=== PATIENT | female | born 1930 | race Caucasian/White ===

== ENCOUNTER → 2017-05-29 | Outpatient (CLI) | payer MEDICARE, OTHER ==
[2017-05-29] VITALS (8 sets, daily range): BP systolic 101–135; BP diastolic 55–85
[~2017-05-29] VITALS: Ht 165.1 cm; Wt 54.2 kg
[~2017-05-29] MED LIST: ASPI-983 PO; ATEN25TA PO; ATEN50TA PO; CEPH500T PO; CETI10CA PO; CLOP75TA28 PO; FLUT16SP22 NSEACH; FLUT1DIS26 IH; FLUT1DIS28 IH; FURO20TA4 PO; FUROSEMIDE 40 MG/4 ML INJ (LASIX) IVP ONE; FUROSEMIDE 40 MG/4 ML INJ (LASIX) ONE; HYDR-3812 PO; HYDR12.5 PO; LISI-552 PO; MONT10TA21 PO; MONT10TA24 PO; NS IV 500 ML 500 ML ONE; PANT40TA2 PO; POTA10TA6 PO; SIMV40TA PO; SIMV40TA4 PO; SUCR1TAB36 PO
== END ==
LOC: SDC 08:02
PROVIDERS: ATTEND Internal Medicine
DX: D64.9 Anemia, unspecified (principal)
CPT/HCPCS: 36415; 36430; 82728; 86850; 86900; 86901; 86920

== ENCOUNTER → 2018-07-22 | Outpatient (CLI) | payer MEDICARE, OTHER ==
[~2018-07-22] MED LIST changes: +ACHD5005 PO; -FUROSEMIDE 40 MG/4 ML INJ (LASIX) IVP ONE; -FUROSEMIDE 40 MG/4 ML INJ (LASIX) ONE; -HYDR-3812 PO; -NS IV 500 ML 500 ML ONE
--- NOTE | 2018-07-22 18:25 | Diagnostic Imaging Report ---
EXAMINATION: Digital mammogram bilateral screening with 3D tomosynthesis and computer-aided detection (CAD) system. INDICATION: Screening. This study was compared to the prior exams of 05/07/2016, 02/20/2015, and 02/15/2014. At this time, there are no current complaints. FINDINGS: The fibroglandular tissue in both breasts is heterogeneously dense. This does limit the sensitivity of this exam. Overall, there does not appear to have been any significant change when compared to the prior study. No primary or secondary sign of malignancy is noted. 3D tomographic images fail to show any sign of malignancy. IMPRESSION: There is no radiographic evidence for malignancy. ACR BI-RADS Category 1: Negative. Result letter will be mailed to the patient. Note: At least 10% of breast cancer is not imaged by mammography. Dictated by: Dictated on workstation # [id number]
== END ==
LOC: RAD 10:53
PROVIDERS: ATTEND Internal Medicine
DX: Z12.31 Encounter for screening mammogram for malignant neoplasm of breast (principal)
CPT/HCPCS: 77067

== ENCOUNTER 2019-05-06 18:16 | Inpatient (IN) | payer MEDICARE, OTHER ==
[~2019-05-06] VITALS: Ht 162 cm; Wt 60.5 kg
[2019-05-06] MEDS ORDERED: RT-ALBUTEROL/IPRATROPIUM 3 ML (DUONEB) VIAL ONE (18:22)
[2019-05-06] MEDS ORDERED: DEXAMETHASONE 4 MG/ML SDV (DECADRON) ONE (18:22)
[2019-05-06] MEDS ORDERED: NS IV 1000 ML 1,000 ML IV ONE (18:24)
[2019-05-06] MEDS ORDERED: methylPREDNISolone 125 MG (Solu-MEDROL) VIAL IV STA (18:28)
[2019-05-06] MEDS ORDERED: ACETAMINOPHEN 500 MG TAB (TYLENOL) PO PRN ×2 (18:30→23:30)
[2019-05-06] MEDS ORDERED: RT-ALBUTEROL/IPRATROPIUM 3 ML (DUONEB) VIAL INH ONE (18:30)
[2019-05-06] MEDS ORDERED: cefTRIAXone FOR IV USE 1,000 MG in WATER (STERILE) FOR INJECTION 10 ML IV ONE (18:30)
[2019-05-06] MEDS ORDERED: hydrALAZINE (APESOLINE) 20 MG/ML VIAL IV ONE (18:30)
[2019-05-06 18:38] LABS: BASOPHILS # (AUTO) 0.1 10^3/uL (0.0-0.1); BASOPHILS % (AUTO) 1 % (0-10); EOSINOPHILS # (AUTO) 2.4 10^3/uL (0.0-0.3); EOSINOPHILS % (AUTO) 14 % (0-10); HEMATOCRIT 42 % (35-52); HEMOGLOBIN 14.1 G/DL (11.5-16.0); LYMPHOCYTES # (AUTO) 4.2 X 10^3 (1.0-4.0); LYMPHOCYTES % (AUTO) 25 % (12-44); MEAN CORPUSCULAR HEMOGLOBIN 29 PG (25-34); MEAN CORPUSCULAR HGB CONC 33 G/DL (32-36); MEAN CORPUSCULAR VOLUME 88 FL (80-99); MEAN PLATELET VOLUME 10.7 FL (7.4-10.4); MONOCYTES # (AUTO) 1.2 X 10^3 (0.0-1.0); MONOCYTES % (AUTO) 7 % (0-12); NEUTROPHILS % (AUTO) 53 % (42-75); PLATELET COUNT 309 10^3/uL (130-400); RED CELL DISTRIBUTION WIDTH 14.4 % (10.0-14.5); WHITE BLOOD COUNT 16.9 10^3/uL (4.3-11.0)
--- NOTE | 2019-05-06 18:41 | ED Respiratory ---
General Chief Complaint: Respiratory Problems Stated Complaint: SOA Source: patient History of Present Illness Date Seen by Provider: May 06, 2019 Time Seen by Provider: 18:19 Initial Comments PT ARRIVES VIA POV FROM HOME---PT LIVES ALONE, NO FAMILY NEARBY. NEIGHBORS CHECK ON HER, AND ONE NEIGHBOR BROUGHT HER HERE. C/O SHORTNESS OF BREATH C/O NON-PRODUCTIVE COUGH C/O CLEAR RUNNY NOSE C/O UPPER CHEST PAIN NO KNOWN FEVER NO SWELLING IN LEGS/FEET SYMPTOMS FOR 2 WEEKS SAW A R SPECIALIST/PA AT DR. THOMPSON'S OFFICE A WEEK AGO. NO TESTS, GIVEN RX FOR TESSALON. STATES NO RELIEF PCP: DR. THOMPSON Allergies and Home Medications Allergies Coded Allergies: No Known Drug Allergies (Unverified , 05/24/17) Home Medications Aspirin 81 Mg Tablet.dr, 81 MG PO HS, (Reported) Atenolol 50 Mg Tablet, 50 MG PO HS, (Reported) Benzonatate 100 Mg Capsule, 200 MG PO TID, (Reported) Cetirizine HCl 10 Mg Capsule, 10 MG PO HS, (Reported) Fluticasone Propionate 16 Gm [place].susp, 1-2 SPRAYS NSEACH DAILY PRN for CONGESTION, (Reported) Fluticasone/Salmeterol 1 Each Blst.w.dev, 1 PUFF IH BID, (Reported) Lisinopril 10 Mg Tablet, 10 MG PO HS, (Reported) Pantoprazole Sodium 40 Mg Tablet.dr, 40 MG PO DAILY Prescribed by: VERONICA MANE on 05/25/17 0946 Potassium Chloride 10 Meq Tablet.er, 10 MEQ PO DAILY, (Reported) Simvastatin 40 Mg Tablet, 40 MG PO HS, (Reported) Sucralfate 1 Gm Tablet, 1 GM PO ACHS Prescribed by: VERONICA MANE on 05/25/17 0946 Patient Home Medication List Home Medication List Reviewed: Yes Review of Systems Review of Systems Constitutional: No chills, No diaphoresis, No fever; malaise, weakness EENTM: nose congestion, other (CLEAR RUNNY NOSE) Respiratory: see HPI, cough, short of breath Cardiovascular: see HPI, chest pain; No edema Gastrointestinal: no symptoms reported Genitourinary: no symptoms reported Musculoskeletal: no symptoms reported Skin: no symptoms reported Psychiatric/Neurological: No Symptoms Reported Hematologic/Lymphatic: No Symptoms Reported Immunological/Allergic: no symptoms reported Past Lnxzaqn-Egczpv-Ipgfti Hx Patient Social History Alcohol Use: Denies Use Recreational Drug Use: No Smoking Status: Never a Smoker Recent Foreign Travel: No Contact w/Someone Who Travel: No Recent Hopitalizations: No Immunizations Up To Date Tetanus Booster (TDap): Less than 5yrs Date of Pneumonia Vaccine: Apr 19, 2016 Date of Influenza Vaccine: Apr 19, 2017 Seasonal Allergies Seasonal Allergies: No Past Medical History Surgeries: Yes (CARDIAC CATH WITH ANGIOPLASTY AT [facility] / DR. 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 PT REFUSED EGD.) Gastrointestinal Bleed Musculoskeletal: No Endocrine: No HEENT: No Cancer: No Psychosocial: No Integumentary: No Blood Disorders: No Physical Exam Vital Signs - First Documented 05/06/19 18:20 Temp 37.4 Pulse 105 Resp 24 B/P (MAP) 219/116 (150) Pulse Ox 94 O2 Delivery Nasal Cannula O2 Flow Rate 2.00 Capillary Refill : Height: 5'5.00" Weight: 119lbs. 9.0oz. 54.214360wb; 19.9 BMI Method:Stated General Appearance: mild distress, thin HEENT: PERRL/EOMI, other (PROFUSE CLEAR RHINORRHEA) Neck: normal inspection Respiratory: other (MILD DYSPNEA, TACHYPNEA. DIFFUSE EXPIRATORY WHEEZING ON LEFT, DIFFUSE RALES/RHONCHI ON RIGHT. 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 as tested, no motor/sensory deficits, alert, oriented x 3 Skin: normal color, warm/dry Focused Exam Lactate Level 05/06/19 18:23: Lactic Acid Level 1.24 Lactic Acid Level Laboratory Tests Test 05/06/19 18:23 Lactic Acid Level 1.24 MMOL/L (0.50-2.00) Progress/Results/Core Measures Suspected Sepsis SIRS Temperature: Pulse: Respiratory Rate: Laboratory Tests 05/06/19 18:23: White Blood Count 16.9H Blood Pressure / Mean: 05/06/19 18:23: Lactic Acid Level 1.24 Laboratory Tests 05/06/19 18:23: Creatinine 0.83, INR Comment 1.0, Platelet Count 309, Total Bilirubin 0.3 Results/Orders Lab Results Laboratory Tests Test 05/06/19 18:23 05/06/19 18:38 05/06/19 18:54 Range/Units White Blood Count 16.9 H 4.3-11.0 10^3/uL Red Blood Count 4.81 4.35-5.85 10^6/uL Hemoglobin 14.1 11.5-16.0 G/DL Hematocrit 42 35-52 % Mean Corpuscular Volume 88 80-99 FL Mean Corpuscular Hemoglobin 29 25-34 PG Mean Corpuscular Hemoglobin Concent 33 32-36 G/DL Red Cell Distribution Width 14.4 10.0-14.5 % Platelet Count 309 130-400 10^3/uL Mean Platelet Volume 10.7 H 7.4-10.4 FL Neutrophils (%) (Auto) 53 42-75 % Lymphocytes (%) (Auto) 25 12-44 % Monocytes (%) (Auto) 7 0-12 % Eosinophils (%) (Auto) 14 H 0-10 % Basophils (%) (Auto) 1 0-10 % Neutrophils # (Auto) 9.0 H 1.8-7.8 X 10^3 Lymphocytes # (Auto) 4.2 H 1.0-4.0 X 10^3 Monocytes # (Auto) 1.2 H 0.0-1.0 X 10^3 Eosinophils # (Auto) 2.4 H 0.0-0.3 10^3/uL Basophils # (Auto) 0.1 0.0-0.1 10^3/uL Neutrophils % (Manual) 58 % Lymphocytes % (Manual) 18 % Monocytes % (Manual) 11 % Eosinophils % (Manual) 11 % Band Neutrophils 1 % Atypical Lymphocytes 1 % Blood Morphology Comment NORMAL Prothrombin Time 13.4 12.2-14.7 SEC INR Comment 1.0 0.8-1.4 Activated Partial Thromboplast Time 31 24-35 SEC Sodium Level 138 135-145 MMOL/L Potassium Level 4.0 3.6-5.0 MMOL/L Chloride Level 104 98-107 MMOL/L Carbon Dioxide Level 22 21-32 MMOL/L Anion Gap 12 5-14 MMOL/L Blood Urea Nitrogen 14 7-18 MG/DL Creatinine 0.83 0.60-1.30 MG/DL Estimat Glomerular Filtration Rate > 60 BUN/Creatinine Ratio 17 Glucose Level 116 H 70-105 MG/DL Lactic Acid Level 1.24 0.50-2.00 MMOL/L Calcium Level 9.5 8.5-10.1 MG/DL Corrected Calcium 9.5 8.5-10.1 MG/DL Magnesium Level 1.5 L 1.6-2.4 MG/DL Total Bilirubin 0.3 0.1-1.0 MG/DL Aspartate Amino Transf (AST/SGOT) 19 5-34 U/L Alanine Aminotransferase (ALT/SGPT) 16 0-55 U/L Alkaline Phosphatase 157 H 40-136 U/L Troponin I < 0.028 <0.028 NG/ML B-Type Natriuretic Peptide 247.0 H <100.0 PG/ML Total Protein 6.7 6.4-8.2 GM/DL Albumin 4.0 3.2-4.5 GM/DL Blood Gas Puncture Site LR Blood Gas Patient Temperature 37.4 Arterial Blood pH 7.37 7.37-7.43 Arterial Blood Partial Pressure CO2 44 35-45 MMHG Arterial Blood Partial Pressure O2 48 L 79-93 MMHG Arterial Blood HCO3 25 23-27 MMOL/L Arterial Blood Total CO2 25.8 21.0-31.0 MMOL/L Arterial Blood Oxygen Saturation 81 L 94-100 % Arterial Blood Base Excess -0.1 -2.5-2.5 MMOL/L Keron Test YES-POS Blood Gas Ventilator Setting NO Blood Gas Inspired Oxygen 2L Urine Color YELLOW Urine Clarity SLIGHTLY CLOUDY Urine pH 5 5-9 Urine Specific [place] 1.030 H 1.016-1.022 Urine Protein 3+ H NEGATIVE Urine Glucose (UA) NEGATIVE NEGATIVE Urine Ketones 2+ H NEGATIVE Urine Nitrite NEGATIVE NEGATIVE Urine Bilirubin NEGATIVE NEGATIVE Urine Urobilinogen NORMAL NORMAL MG/DL Urine Leukocyte Esterase 2+ H NEGATIVE Urine RBC (Auto) 2+ H NEGATIVE Urine RBC 2-5 H /HPF Urine WBC 10-25 H /HPF Urine Crystals NONE /LPF Urine Bacteria FEW H /HPF Urine Casts PRESENT /LPF Urine Hyaline Casts 2-5 H /LPF Urine Mucus MODERATE H /LPF Urine Culture Indicated CULTURE PENDING Micro Results Microbiology 05/06/19 Influenza Types A,B Antigen (RHONDA) - Final, Complete My Orders Orders - NICOLETTE THOMAS DO Dexamethasone Injection (Decadron Inject (05/06/19:) Albuterol/Ipra Inhalation Soln (Duoneb I (05/06/19:) Ed Iv/Invasive Line Start (05/06/19) Ekg Tracing (05/06/19) Catheter(Urinary) Insert & Ass 03,15 (05/06/19) Monitor-Rhythm Ecg Trace Only (05/06/19) BNP (05/06/19) Magnesium (05/06/19) Protime With Inr (05/06/19) Partial Thromboplastin Time (05/06/19) Blood Culture (05/06/19) Influenza A And B Antigens (05/06/19) Cbc With Automated Diff (05/06/19) Comprehensive Metabolic Panel (05/06/19) Sputum Culture (05/06/19) Urinalysis (05/06/19) Urine Culture (05/06/19) Chest 1 View, Ap/Pa Only (05/06/19) Acetaminophen Tablet (Tylenol Tablet) (05/06/19:) Ed Iv/Invasive Line Start (05/06/19) Ed Iv/Invasive Line Start (05/06/19) Troponin I (05/06/19) O2 (05/06/19:) Lactic Acid Analyzer (05/06/19) Ceftriaxone For Iv Use (Rocephin For I (05/06/19:) Azithromycin Injection (Zithromax Inject (05/06/19) Ed Iv/Invasive Line Start (05/06/19) Ns Iv 1000 Ml (Sodium Chloride 0.9%) (05/06/19:) Albuterol/Ipra Inhalation Soln (Duoneb I (05/06/19) Rt Request For Service (05/06/19 18:28) Methylprednisolone Sod Succ (Solu-Medrol (05/06/19 18:28) Svn Small Volume Nebulizer (05/06/19 18:28) Arterial Blood Gas (05/06/19 18:28) Hydralazine Injection (Apresoline Inject (05/06/19 18:30) Manual Differential (05/06/19 18:23) Magnesium 1 Gm/100 Ml Ivpb (Magnesium [place] (05/06/19 19:45) Ct Angio Chest W (05/06/19 19:42) Iohexol Injection (Omnipaque 350 Mg/Ml 1 (05/06/19 20:00) Received Contrast (Hold Metformin- Contr (05/06/19 20:00) Sodium Chloride Flush (Catheter Flush Sy (05/06/19 20:00) Ns (Ivpb) (Sodium Chloride 0.9% Ivpb Bag (05/06/19 20:00) Medications Given in ED Vital Signs/I&O 05/06/19 05/06/19 05/06/19 05/06/19 18:20 18:20 18:31 19:05 Temp 37.4 Pulse 105 116 Resp 24 24 B/P (MAP) 219/116 (150) 155/71 (99) Pulse Ox 94 86 95 96 O2 Delivery Nasal Cannula Nasal Cannula Nasal Cannula Room Air O2 Flow Rate 2.00 4.00 2.00 05/06/19 20:00 Pulse 84 Resp 22 B/P (MAP) 128/65 (86) Pulse Ox 92 O2 Delivery Room Air 05/07/19 00:00 Intake Total 1260 ml Balance 1260 ml Capillary Refill : Progress Note : Progress Note PT GIVEN NEB TREATMENT, WITH INCREASED AERATION, NO LONGER WHEEZING, STILL WITH RALES AND RHONCHI IN RLL. O2 SATS REMAINED IN MID 90'S ON O2, BP AND HEART RATE DOWN , AND RESPIRATORY RATE DOWN. PT IS BREATHING MUCH EASIER. NO DETERIORATION IN PT'S CONDITION DURING ER STAY ECG Initial ECG Impression Date: May 06, 2019 Initial ECG Impression Time: 18:40 Initial ECG Rate: 111 Initial ECG Rhythm: S.Tach Initial ECG Impression: Nonspecific Changes Diagnostic Imaging Comments CXR--NO ACUTE PROCESS, PER RADIOLOGIST REPORT AT 1939 CT CHEST ANGIOGRAM--NO P.E. NO ANEURYSM OR DISSECTION. BILATERAL LUNG BRON CHIECTASIS WITH SIGNIFICANT MUCOUS PLUGGING AND SECRETIONS IN BILATERAL LOWER LUNG [place]. BILATERAL ATELECTASIS. MEDIASTINAL AND PERIHILAR ADENOPATHY. PER RADIOLOGIST REPORT AT 2049 Reviewed: Reviewed by Me Departure Communication (Admissions) 2049--SPOKE WITH DR. PINEDA, HOSPITALIST. ACCEPTS PT FOR ADMIT. Impression Primary Impression: Acute respiratory failure with hypoxia Additional Impressions: Bronchitis Sepsis UTI (urinary tract infection) Hypomagnesemia CHF (congestive heart failure) HTN Disposition: ADMITTED INPATIENT Condition: Improved Admissions Decision to Admit Reason: Admit from ER (General) Decision to Admit/Date: May 06, 2019 Time/Decision to Admit Time: 20:50 Departure-Patient Inst. Referrals: JAY JAY THOMPSON MD (PCP/Family) Primary Care Physician NICOLETTE THOMAS DO May 06, 2019 18:41
[2019-05-06 18:46] LABS: ABG BASE EXCESS -0.1 MMOL/L (-2.5-2.5); ABG OXYGEN SATURATION 81 % (94-100); ABG PCO2 44 MMHG (35-45); ABG PH 7.37 (7.37-7.43); ABG PO2 48 MMHG (79-93); ABG TCO2 25.8 MMOL/L (21.0-31.0)
[2019-05-06 18:47] LABS: ALLENS TEST YES-POS; INSPIRED O2 2L; PATIENT TEMP 37.4; VENTILATOR NO
[2019-05-06 18:49] LABS: PROTHROMBIN TIME PATIENT 13.4 SEC (12.2-14.7)
[2019-05-06 18:52] LABS: ALANINE AMINOTRANSFERASE 16 U/L (0-55); ALKALINE PHOSPHATASE 157 U/L (40-136); BILIRUBIN,TOTAL 0.3 MG/DL (0.1-1.0); CALCIUM 9.5 MG/DL (8.5-10.1); CARBON DIOXIDE 22 MMOL/L (21-32); CHLORIDE 104 MMOL/L (98-107); GLUCOSE 116 MG/DL (70-105); MAGNESIUM 1.5 MG/DL (1.6-2.4); SODIUM 138 MMOL/L (135-145); TOTAL PROTEIN 6.7 GM/DL (6.4-8.2)
--- NOTE | 2019-05-06 19:00 | NUR ---
REPORT TO DENNY ROBERSON
[2019-05-06 19:05] VITALS: BP 155/71
[2019-05-06 19:07] LABS: BILIRUBIN,URINE NEGATIVE (NEGATIVE); CLARITY,URINE SLIGHTLY CLOUDY; COLOR,URINE YELLOW; GLUCOSE, URINE (UA) NEGATIVE (NEGATIVE); KETONES,URINE 2+ (NEGATIVE); LEUKOCYTE ESTERASE ,URINE 2+ (NEGATIVE); NITRITE,URINE NEGATIVE (NEGATIVE); PH,URINE 5 (5-9); PROTEIN,URINE 3+ (NEGATIVE)
[2019-05-06] MEDS: AZITHROMYCIN INJECTION 500 MG in NS (IVPB) 250 ML IV ONE ×2 (19:10→20:17)
[2019-05-06 19:11] LABS: ATYPICAL LYMPHOCYTES 1 %; BAND NEUTROPHILS 1 %; EOSINOPHILS % (MANUAL) 11 %; LYMPHOCYTES % (MANUAL) 18 %; MONOCYTES % (MANUAL) 11 %; NEUTROPHILS % (MANUAL) 58 %; RBC MORPH NORMAL
[2019-05-06 19:19] LABS: BUN/CREATININE RATIO 17; CREATININE SERUM 0.83 MG/DL (0.60-1.30); GFR ESTIMATED > 60
[2019-05-06 19:19] LABS: BACTERIA,URINE FEW /HPF
--- NOTE | 2019-05-06 19:22 | Diagnostic Imaging Report ---
Indication: Cough and fever Portable chest 7:10 PM Heart size and pulmonary vascularity are normal. Lungs are clear. There are no effusions or pneumothoraces. IMPRESSION: Negative chest Dictated by: Dictated on workstation # [id number]
[2019-05-06 20:00] VITALS: BP 128/65
[2019-05-06] MEDS ORDERED: CATHETER FLUSH 10 ML SYR IV PRN (20:00)
[2019-05-06] MEDS ORDERED: HOLD METFORMIN - RECEIVED CONTRAST 20 ML VIAL IV SCH (20:00)
[2019-05-06] MEDS ORDERED: IOHEXOL 350 MG/ML 100 ML (OMNIPAQUE 350) VIAL IV ONE (20:00)
[2019-05-06] MEDS ORDERED: NS 100 ML (IVPB) BAG IV ONE (20:00)
--- NOTE | 2019-05-06 20:41 | Diagnostic Imaging Report ---
Clinical indications: Patient with shortness of air. Patient has history of skin cancer. Exam: CT angiogram of the chest performed with 59 cc Omnipaque 350 IV contrast. Coronal and oblique MIP images of the vasculature were created to better evaluate anatomy. Auto Exposure Controls were utilized during the CT exam to meet ALARA standards for radiation dose reduction. Comparison: Chest x-ray dated 05/06/2019. Findings: There is no evidence of pulmonary embolism. There is no thoracic aortic dissection or aneurysm. There is mild bronchiectasis involving both lungs with mucosal thickening. There is mucous plugging seen within the bilateral lower lobe bronchi. There is mild atelectasis involving both lower lobes, lingula and middle lobe lung base regions. The remainder of the lungs are clear. There are prominent lymph nodes in the mediastinal and hilar regions. Marker lymph node is in the left paratracheal region measuring 12 mm x 11 mm. There is no axillary lymphadenopathy. There is no pleural effusion pneumothorax. There are postop changes with sutures involving the right anterior abdominal region. 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 The visualized portions of the upper abdominal structures are unremarkable. Bone show no significant acute process. Impression: 1: There is no evidence of pulmonary embolism. There is no thoracic aortic aneurysm or dissection. 2: There is bilateral lung bronchiectasis with significant mucous plugging and secretions in the bilateral lower lung field regions. Bilateral lung atelectasis. These findings may be from infectious or inflammatory process and bronchitis. 3: There is mediastinal and bilateral hilar lymphadenopathy. 4: There is mild bilateral lower lung field atelectasis. Dictated by: Dictated on workstation # [id number]
[2019-05-06] MEDS: MAGNESIUM 1 GM/100 ML IVPB 100 ML IV SCH ×2 (20:42→21:41)
[2019-05-06 22:05] VITALS: BP 117/65
--- NOTE | 2019-05-06 22:05 | NUR ---
MARV CUEVAS admitted to room 431-1, with an admitting diagnosis of bronchitis, hypoxia, sepsis,HTN, on 05/06/19 from ER via cart, accompanied by er staff. MARV CUEVAS introduced to surroundings, call light, bed controls, phone, TV, temperature control, lights, meal times, smoking policy, visitor policy, side rail policy, bathrooms and showers. Patient Rights given to patient in the handbook. MARV CUEVAS verbalizes understanding that [facility] is not responsible for the loss or damage to any personal effects or valuables that are kept in the patients possession during their hospitalization.
[2019-05-06 22:50] VITALS: BP 117/65
[2019-05-06] MEDS ORDERED: RT-ALBUTEROL/IPRATROPIUM 3 ML (DUONEB) VIAL INH PRN (23:00)
[2019-05-07 00:30] VITALS: BP 126/59
[2019-05-07] MEDS ORDERED: methylPREDNISolone 125 MG (Solu-MEDROL) VIAL IVP SCH (02:00)
[2019-05-07] MEDS ORDERED: LISI10TA2 PO (03:43)
[2019-05-07] MEDS ORDERED: BENZ100C18 PO (03:47)
[2019-05-07] MEDS ORDERED: ASPI-586 PO (03:50)
[2019-05-07 04:00] VITALS: BP 145/66
[2019-05-07 05:37] LABS: BASOPHILS % (AUTO) 0 % (0-10); EOSINOPHILS % (AUTO) 0 % (0-10); HEMATOCRIT 37 % (35-52); HEMOGLOBIN 12.4 G/DL (11.5-16.0); LYMPHOCYTES # (AUTO) 1.3 X 10^3 (1.0-4.0); LYMPHOCYTES % (AUTO) 10 % (12-44); MEAN CORPUSCULAR HEMOGLOBIN 29 PG (25-34); MEAN CORPUSCULAR HGB CONC 33 G/DL (32-36); MEAN CORPUSCULAR VOLUME 88 FL (80-99); MEAN PLATELET VOLUME 10.5 FL (7.4-10.4); MONOCYTES # (AUTO) 0.1 X 10^3 (0.0-1.0); MONOCYTES % (AUTO) 1 % (0-12); NEUTROPHILS # (AUTO) 11.3 X 10^3 (1.8-7.8); NEUTROPHILS % (AUTO) 89 % (42-75); PLATELET COUNT 243 10^3/uL (130-400); RED CELL DISTRIBUTION WIDTH 14.1 % (10.0-14.5); WHITE BLOOD COUNT 12.8 10^3/uL (4.3-11.0)
[2019-05-07 05:57] LABS: ALANINE AMINOTRANSFERASE 13 U/L (0-55); ALBUMIN 3.4 GM/DL (3.2-4.5); ALKALINE PHOSPHATASE 152 U/L (40-136); BILIRUBIN,TOTAL 0.3 MG/DL (0.1-1.0); BUN/CREATININE RATIO 12; CALCIUM 8.4 MG/DL (8.5-10.1); CARBON DIOXIDE 19 MMOL/L (21-32); CHLORIDE 105 MMOL/L (98-107); CREATININE SERUM 0.67 MG/DL (0.60-1.30); GFR ESTIMATED > 60; GLUCOSE 145 MG/DL (70-105); POTASSIUM 3.7 MMOL/L (3.6-5.0); SODIUM 136 MMOL/L (135-145); TOTAL PROTEIN 5.7 GM/DL (6.4-8.2)
[2019-05-07] MEDS: RT-ALBUTEROL/IPRATROPIUM 3 ML (DUONEB) VIAL INH SCH ×2 (07:32→11:27)
[2019-05-07 08:00] VITALS: BP 124/58
[2019-05-07] MEDS ORDERED: FLUTICASONE NASAL SPRAY (FLONASE) 16 GM BTL NS PRN (08:00)
[2019-05-07] MEDS ORDERED: FLU QUADRIvalent (5+ YOA) 2019-2020 (AFLURIA) 0.5 ML IM ONE (08:15)
--- NOTE | 2019-05-07 08:22 | Diagnostic Imaging Report ---
EXAMINATION: Chest 1 view HISTORY: Bronchitis FINDINGS: Comparison is 05/06/2019. There is mild left base atelectasis. No pleural effusion or pneumothorax. No edema or pneumonia. Heart size is normal. IMPRESSION: 1. Mild left base atelectasis. Dictated by: Dictated on workstation # [id number]
[2019-05-07] MEDS: SUCRALFATE 1 GM (CARAFATE) TAB PO SCH ×3 (09:23→19:44)
[2019-05-07] MEDS: ASPIRIN E.C. 81 MG (ECOTRIN) TAB PO SCH (09:23)
[2019-05-07] MEDS: PANTOPRAZOLE 40 MG (PROTONIX) TAB PO SCH (09:23)
[2019-05-07] MEDS: AZITHROMYCIN 250 MG TAB (ZITHROMAX) PO SCH (09:23)
[2019-05-07] MEDS: RT-ADVAIR HFA 115/21 MCG PER PUFF IH SCH ×2 (11:29→21:30)
[2019-05-07 12:00] VITALS: BP 134/65
--- NOTE | 2019-05-07 13:59 | History & Physical-Hospitalist ---
History of Present Illness HPI/Chief Complaint This is an 89-year-old white female well known to me. She first beginning having trouble in March this year when she was exposed to roadside mowing. She began to have a great deal of sinus drainage and cough productive of copious amounts of mucus. At the time of my interview today she feels actually a little worse and she did yesterday and is been tachycardic overnight with rates up to 120. She denies having any chest pain but she continues to have a cough productive of sputum that is yellow in nature. Source: patient Exam Limitations: no limitations Date Seen 05/07/19 Time Seen by a Provider: 13:45 Attending Physician Jay Jay Cuadra MD Referring Physician Date of Admission May 06, 2019 at 20:50 Home Medications & Allergies Home Medications Reviewed patient Home Medication Reconciliation performed by pharmacy medication reconciliations hydroelectric plant technician and/or nursing. Patients Allergies have been reviewed. Allergies Allergies Coded Allergies No Known Drug Allergies ([id number]/5/17) Past Znccibs-Nzaghx-Gvexra Hx Past Med/Social Hx: Reviewed Nursing Past Med/Soc Hx Patient Social History Marrital Status: Employed/Student: retired Alcohol Use: Denies Use Recreational Drug Use: No Smoking Status: Never a Smoker Recent Foreign Travel: No Contact w/other who traveled: No Recent Hopitalizations: No Recent Infectious Disease Expo: No Immunizations Up To Date Tetanus Booster (TDap): Less than 5yrs Date of Pneumonia Vaccine: Apr 19, 2016 Date of Influenza Vaccine: Apr 19, 2017 Seasonal Allergies Seasonal Allergies: No Past Medical History Surgeries: Cardiac, Gallbladder, Hysterectomy Currently Using CPAP: No Currently Using BIPAP: No Cardiac: Coronary Artery Disease, Heart Attack, Hypertension Neurological: Stroke : No Reproductive: No Gastrointestinal: Gastrointestinal Bleed History of Blood Disorders: No Family History Congenital heart disease 19 FATHER G8 BROTHER FH: breast cancer G8 SISTER Review of Systems Constitutional: see HPI EENTM: nose congestion Respiratory: dyspnea on exertion, wheezing Cardiovascular: no symptoms reported Gastrointestinal: no symptoms reported Genitourinary: no symptoms reported Musculoskeletal: muscle weakness Skin: no symptoms reported Psychiatric/Neurological: No Symptoms Reported Physical Exam Physical Exam Vital Signs Vital Signs - First Documented 05/06/19 05/06/19 18:20 22:50 Temp 37.4 Pulse 105 Resp 24 B/P (MAP) 219/116 (150) Pulse Ox 94 O2 Delivery Nasal Cannula O2 Flow Rate 2.00 FiO2 28 Capillary Refill : Less Than 3 Seconds Height, Weight, BMI Height: 5'5.00" Weight: 119lbs. 9.0oz. 54.411666ml; 22.10 BMI Method:Stated General Appearance: No Apparent Distress, WD/WN (then) HEENT: Normal ENT Inspection Neck: Full Range of Motion, Normal Inspection, Non Tender, Supple Respiratory: Lungs Clear, Normal Breath Sounds, No Accessory Muscle Use, No Respiratory Distress Cardiovascular: Tachycardia Gastrointestinal: Normal Bowel Sounds, Non Tender, Soft Rectal: Deferred Back: Normal Inspection Extremity: Normal Capillary Refill, Non Tender, No Calf Tenderness Neurologic/Psychiatric: Alert, Oriented x3, No Motor/Sensory Deficits, Normal Mood/Affect Skin: Normal Color, Warm/Dry Results Results/Procedures Labs Laboratory Tests 05/06/19 18:23 05/07/19 05:25 Patient resulted labs reviewed. Imaging: Reviewed Imaging Report Assessment/Plan Admission Diagnosis Acute bronchitis Reactive airway disease-possible new diagnosis Coronary artery disease and tachycardia Weakness Hypertension Hypoxia secondary to number 1 and 2 Plan to admit changed to Xopenex continue beta meron start steroids and add Atrovent. We'll repeat an EKG troponin and check an echocardiogram as well Admission Status: Observation Clinical Quality Measures DVT/VTE Risk/Contraindication: Risk Factor Score Per Nursin RFS Level Per Nursing on Admit: 4+=Very High Copy Copies To 1: JAY JAY THOMPSON MD, KATHLEEN M MD May 07, 2019 13:59
[2019-05-07] MEDS: ATENOLOL 50 MG (TENORMIN) TAB PO SCH ×2 (14:35→19:44)
[2019-05-07] MEDS ORDERED: RT-IPRATROPIUM (ATROVENT) 0.5MG/2.5ML AMP IH SCH (15:00)
[2019-05-07] MEDS ORDERED: [UNRECOGNIZED DRUG - OTHER] INH SCH (15:00)
[2019-05-07] MEDS: RT-IPRATROPIUM (ATROVENT) 0.5MG/2.5ML AMP IH SCH ×2 (15:14→21:30)
[2019-05-07] MEDS: RT-LEVALBUTEROL (XOPENEX) 1.25 MG/3 ML NEB NON-FORMULARY INH SCH ×2 (15:14→21:30)
[2019-05-07 16:00] VITALS: BP 110/71
[2019-05-07] MEDS: LORATADINE (CLARITIN) 10 MG TAB PO SCH (19:44)
[2019-05-07] MEDS: lisINopril 10 MG (PRINIVIL) TABLET PO SCH (19:44)
[2019-05-07] MEDS: cefTRIAXone FOR IV USE 1,000 MG in WATER (STERILE) FOR INJECTION 10 ML IV SCH (19:44)
[2019-05-07] MEDS: predniSONE 20 MG TAB PO SCH (19:44)
[2019-05-07] MEDS: SIMvastatin 40 MG (ZOCOR) TAB PO SCH (19:53)
[2019-05-07 20:00] VITALS: BP 109/65
[2019-05-07] MEDS ORDERED: ATENOLOL 50 MG (TENORMIN) TAB PO SCH (21:00)
[2019-05-08 00:37] VITALS: BP 121/68
[2019-05-08 04:32] VITALS: BP 126/66
[2019-05-08] MEDS: SUCRALFATE 1 GM (CARAFATE) TAB PO SCH ×4 (05:31→19:39)
[2019-05-08] MEDS: RT-LEVALBUTEROL (XOPENEX) 1.25 MG/3 ML NEB NON-FORMULARY INH SCH ×3 (07:31→21:56)
[2019-05-08] MEDS: RT-ADVAIR HFA 115/21 MCG PER PUFF IH SCH ×2 (07:32→21:57)
[2019-05-08] MEDS: RT-IPRATROPIUM (ATROVENT) 0.5MG/2.5ML AMP IH SCH ×3 (07:32→21:56)
[2019-05-08 08:32] VITALS: BP 132/66
[2019-05-08] MEDS: predniSONE 20 MG TAB PO SCH ×2 (08:38→19:40)
[2019-05-08] MEDS: AZITHROMYCIN 250 MG TAB (ZITHROMAX) PO SCH (08:38)
[2019-05-08] MEDS: ASPIRIN E.C. 81 MG (ECOTRIN) TAB PO SCH (08:38)
[2019-05-08] MEDS: PANTOPRAZOLE 40 MG (PROTONIX) TAB PO SCH (08:38)
[2019-05-08] MEDS ORDERED: FLU QUADRIvalent (5+ YOA) 2019-2020 (AFLURIA) 0.5 ML IM ONE (08:39)
[2019-05-08 12:06] VITALS: BP 137/70
--- NOTE | 2019-05-08 13:25 | Progress Note - Hospitalist ---
Subjective HPI/CC On Admission Date Seen by Provider: May 08, 2019 Time Seen by Provider: 12:45 This is an 89-year-old white female well known to me. She first beginning having trouble in March this year when she was exposed to roadside mowing. She began to have a great deal of sinus drainage and cough productive of copious amounts of mucus. At the time of my interview today she feels actually a little worse and she did yesterday and is been tachycardic overnight with rates up to 120. She denies having any chest pain but she continues to have a cough productive of sputum that is yellow in nature. Subjective/Events-last exam Patient notes that she's feeling much better today with less coughing and rib pain. Her pulses down into the 80s and 90s. She slept well overnight and other than some weakness still she is planning to go home possibly Thursday Review of Systems Pulmonary: Dyspnea, Cough Neurological: Weakness Focused Exam Lactate Level 05/06/19 18:23: Lactic Acid Level 1.24 Objective Exam Vital Signs Vital Signs Date Time Temp Pulse Resp B/P (MAP) Pulse Ox O2 Delivery O2 Flow Rate FiO2 05/08/19 13:00 82 05/08/19 12:06 36.4 18 137/70 (92) 97 Room Air 05/07/19 04:00 2.00 05/06/19 22:50 28 Capillary Refill : Less Than 3 Seconds General Appearance: No Apparent Distress, WD/WN HEENT: Normal ENT Inspection Neck: Full Range of Motion, Normal Inspection, Non Tender, Supple Respiratory: Lungs Clear, Normal Breath Sounds, No Accessory Muscle Use, No Respiratory Distress Cardiovascular: Regular Rate, Rhythm, No Gallop, No Murmur, Normal Peripheral Pulses Gastrointestinal: Soft Rectal: Deferred Back: Normal Inspection, No CVA Tenderness Extremity: Normal Capillary Refill, Non Tender, No Calf Tenderness Neurologic/Psychiatric: Alert, Oriented x3, No Motor/Sensory Deficits, Normal Mood/Affect, product support representative II-XII Norm as Tested Results/Procedures Lab Patient resulted labs reviewed. Imaging: Reviewed Imaging Report Assessment/Plan Assessment and Plan Assess & Plan/Chief Complaint Acute bronchitis Reactive airway disease-possible new diagnosis Coronary artery disease and tachycardia-improved after stopping albuterol and changing to Xopenex Weakness-consider PT in the morning Hypertension Hypoxia secondary to number 1 and 2-improved Clinical Quality Measures DVT/VTE Risk/Contraindication: Risk Factor Score Per Nursin RFS Level Per Nursing on Admit: 4+=Very High JADEN DICKERSON MD May 08, 2019 13:25
[2019-05-08 16:00] VITALS: BP 114/54
[2019-05-08] MEDS: lisINopril 10 MG (PRINIVIL) TABLET PO SCH (19:39)
[2019-05-08] MEDS: ATENOLOL 50 MG (TENORMIN) TAB PO SCH (19:39)
[2019-05-08] MEDS: SIMvastatin 40 MG (ZOCOR) TAB PO SCH (19:39)
[2019-05-08] MEDS: LORATADINE (CLARITIN) 10 MG TAB PO SCH (19:39)
[2019-05-08 19:40] VITALS: BP 133/63
[2019-05-08] MEDS: cefTRIAXone FOR IV USE 1,000 MG in WATER (STERILE) FOR INJECTION 10 ML IV SCH (19:40)
[2019-05-09 00:41] VITALS: BP 138/75
[2019-05-09 04:44] VITALS: BP 144/77
[2019-05-09] MEDS: SUCRALFATE 1 GM (CARAFATE) TAB PO SCH ×4 (06:25→20:38)
[2019-05-09] MEDS: RT-IPRATROPIUM (ATROVENT) 0.5MG/2.5ML AMP IH SCH ×3 (07:59→21:40)
[2019-05-09] MEDS: RT-LEVALBUTEROL (XOPENEX) 1.25 MG/3 ML NEB NON-FORMULARY INH SCH ×3 (07:59→21:38)
[2019-05-09 08:00] VITALS: BP 161/71
[2019-05-09] MEDS: RT-ADVAIR HFA 115/21 MCG PER PUFF IH SCH ×2 (08:02→19:20)
[2019-05-09] MEDS ORDERED: PANT40TA3 PO (08:38)
[2019-05-09] MEDS ORDERED: CETI10TA17 PO (08:38)
[2019-05-09] MEDS ORDERED: SUCR1TAB PO (08:38)
[2019-05-09] MEDS ORDERED: ACET325C3 PO (08:44)
[2019-05-09] MEDS ORDERED: VIT1CAPS44 PO (08:44)
[2019-05-09] MEDS ORDERED: IBUP100T9 PO (08:44)
[2019-05-09] MEDS: AZITHROMYCIN 250 MG TAB (ZITHROMAX) PO SCH (08:46)
[2019-05-09] MEDS: predniSONE 20 MG TAB PO SCH ×2 (08:46→20:39)
[2019-05-09] MEDS: ASPIRIN E.C. 81 MG (ECOTRIN) TAB PO SCH (08:47)
[2019-05-09] MEDS: PANTOPRAZOLE 40 MG (PROTONIX) TAB PO SCH (08:47)
--- NOTE | 2019-05-09 09:15 | NUR ---
SPOKE WITH PT WELL GOING OVER THE EXT MED HISTORY AND CALLING [facility] TO COMPLETE THE MED REC. PT WAS ABLE TO TELL ME HOW/WHEN SHE TAKES ALL HER MEDICATIONS (EVERYTHING MATCHED THE EXT MED HISTORY EXCEPT POTASSIUM) 12-27-2017 POTASSIUM #90/90DS- PT SAID SHE STOPPED TAKING FOR A LONG TIME AND WAS RECENTLY PUT BACK ON THIS (WITHIN THE LAST MONTH) AND HAD A SUPPLY BUILT UP FROM MAIL ORDER. [place]: THIS IS LISTED ON THE EXT MED HISTORY PUT PT SAYS SHE IS NOT CURRENTLY TAKING. OTC MEDS: ASPIRIN: 1 DAILY PRESERVISION: 1 BID IBUPROFEN: 2 Q 8 H PRN APAP: 2 Q 8 H PRN
[2019-05-09 12:00] VITALS: BP 130/61
--- NOTE | 2019-05-09 12:12 | Progress Note - Hospitalist ---
[facility] 05/09/19 1212: Subjective HPI/CC On Admission Date Seen by Provider: May 09, 2019 Time Seen by Provider: 12:08 This is an 89-year-old white female well known to me. She first beginning having trouble in March this year when she was exposed to roadside mowing. She began to have a great deal of sinus drainage and cough productive of copious amounts of mucus. At the time of my interview today she feels actually a little worse and she did yesterday and is been tachycardic overnight with rates up to 120. She denies having any chest pain but she continues to have a cough productive of sputum that is yellow in nature. Subjective/Events-last exam pt notes she does feel better than the onset of her sx Has developed a cough this AM with mild amount of clear mucus Denies any other symptom besides the cough Has been having normal BMs Has been voiding via catheter, does not require catheter at baseline, agrees with plan to discharge catheter Notes she is ok with going home tomorrow Pt lives along at home, has no relatives/kids/ to help her out around the house At baseline, pt uses a Cane to ambulate States she is able to manage her ADLs independently and Notes if she could get her breathing "under-control", she sees no reason for assistance/home-health Review of Systems General: No Chills, No Fatigue, No Malaise HEENT: No Head Aches, No Dysphasia, No Post Nasal Drip Pulmonary: No Dyspnea; Cough; No Pleuritic Chest Pain Cardiovascular: No: Chest Pain, Palpitations Gastrointestinal: No: Nausea, Vomiting, Diarrhea, Constipation Genitourinary: No Incontinence Neurological: No: Weakness, Numbness Focused Exam Lactate Level 05/06/19 18:23: Lactic Acid Level 1.24 Objective Exam Vital Signs Vital Signs Date Time Temp Pulse Resp B/P (MAP) Pulse Ox O2 Delivery O2 Flow Rate FiO2 05/09/19 08:00 36.4 75 22 161/71 (101) 95 Room Air 05/07/19 04:00 2.00 05/06/19 22:50 28 Capillary Refill : Less Than 3 SecondsLess Than 3 Seconds General Appearance: No Apparent Distress, WD/WN HEENT: Normal ENT Inspection Neck: Normal Inspection Respiratory: Chest Non Tender, Lungs Clear, Normal Breath Sounds, No Accessory Muscle Use, No Respiratory Distress; No Crackles, No Wheezing Cardiovascular: Regular Rate, Rhythm, No Edema, No Gallop, No JVD, No Murmur, Normal Peripheral Pulses Gastrointestinal: Normal Bowel Sounds, Non Tender, Soft Back: Normal Inspection Extremity: Normal Capillary Refill, Normal Inspection, Non Tender, No Calf Tenderness, No Pedal Edema Neurologic/Psychiatric: Alert, Oriented x3, Normal Mood/Affect Skin: Normal Color, Warm/Dry Lymphatic: No Adenopathy Results/Procedures Lab Patient resulted labs reviewed. Imaging: Reviewed Imaging Report Assessment/Plan Assessment and Plan Assess & Plan/Chief Complaint Acute bronchitis -PO Azithro -d/c IV Ceftriaxone -Add PO Keflex Reactive airway disease(RAD)-possible new diagnosis -Control sx on Advair and Prednisone Hypoxia 2 to RAD and Acute bronchitis -Improved Coronary artery disease and tachycardia-improved after stopping albuterol and changing to Xopenex Weakness -PT to evaluate pt Hypertension -Continue home meds: Atenolol and Lisinopril Urinary Catheter -Pt able to void w/o problems and able to reach the toilet -D/C [place] Plan for possible d/c tomorrow was discussed w/ pt. Pt understands and agrees w/ plan. Clinical Quality Measures DVT/VTE Risk/Contraindication: Risk Factor Score Per Nursin RFS Level Per Nursing on Admit: 4+=Very High VERONICA MANE MD 05/09/19 1449: Supervisory-Addendum Brief Verification & Attestation Participated in pt care: history, MDM, physical Personally performed: exam, history, MDM, supervision of care Care discussed with: Medical Student Procedures: n/a Results interpretation: Verified all documentation Verification and Attestation of Medical Student E/M Service A medical student performed and documented this service in my presence. I reviewed and verified all information documented by the medical student and made modifications to such information, when appropriate. I personally performed the physical exam and medical decision making. Veronica Mane, May 09, 2019,14:49 [facility] May 09, 2019 12:12 VERONICA MANE MD May 09, 2019 14:49
--- NOTE | 2019-05-09 13:30 | NUR ---
VIKY BROWNLEE, ORDERED, PRABHA WELL, FREQUENT COUGH, DENIES PAIN, CALL LIGHT WITHIN REACH
[2019-05-09] MEDS ORDERED: ENOXAPARIN 40 MG/0.4 ML (LOVENOX) SYR SC SCH (14:00)
--- NOTE | 2019-05-09 14:28 | NUR ---
Pastoral care visit.
[2019-05-09 15:58] VITALS: BP 118/71
[2019-05-09] MEDS: LACTOBACILLUS ACIDOPHILUS (PROBIOTIC) CAPSULE PO SCH (17:16)
[2019-05-09 19:56] VITALS: BP 129/75
[2019-05-09] MEDS: CEPHALEXIN 250 MG (KEFLEX) CAP PO SCH (20:39)
[2019-05-09] MEDS: lisINopril 10 MG (PRINIVIL) TABLET PO SCH (20:39)
[2019-05-09] MEDS: ATENOLOL 50 MG (TENORMIN) TAB PO SCH (20:39)
[2019-05-09] MEDS: LORATADINE (CLARITIN) 10 MG TAB PO SCH (20:39)
[2019-05-09] MEDS: SIMvastatin 40 MG (ZOCOR) TAB PO SCH (20:43)
[2019-05-10 00:40] VITALS: BP 145/68
[2019-05-10 04:55] VITALS: BP 181/83
[2019-05-10] MEDS: SUCRALFATE 1 GM (CARAFATE) TAB PO SCH (05:04)
[2019-05-10] MEDS: LACTOBACILLUS ACIDOPHILUS (PROBIOTIC) CAPSULE PO SCH (05:04)
[2019-05-10 08:00] VITALS: BP 178/86
[2019-05-10] MEDS: RT-LEVALBUTEROL (XOPENEX) 1.25 MG/3 ML NEB NON-FORMULARY INH SCH (09:01)
[2019-05-10] MEDS: RT-IPRATROPIUM (ATROVENT) 0.5MG/2.5ML AMP IH SCH (09:01)
--- NOTE | 2019-05-10 09:14 | Discharge Summary ---
[facility] 05/10/19 0903: Discharge Summary Hospital Course Problems Reviewed?: Yes Hospital Course Date of Admission: May 06, 2019 at 20:50 Admission Diagnosis : Family Physician/Provider: Jay Jay Thompson MD Date of Discharge: 05/10/19 Discharge Diagnosis: [ ] Hospital Course: [ Pt is an 89 y.o female, well known to Dr. Nugent, who was admitted to the unit for acute bronchitis and hypoxia. Her CXR from 05/06/19 was negative but CTA from 05/07/19 showed mediastinal and bilateral hilar lymphadenopathy, mild bilateral lower lung field atelectasis, bronchiectasis with significant mucousplugging and secretions in the bilateral lower lung field, but no evidence of pulmonary embolism, thoracic aortic aneurysm or dissection. Pt has completed a full course of ABX, and was given breathing treatments to which she responded well. Her recovery was slightly hindered by an episode of severe coughing yesterday which with continued breathing treatments has since resolved. Pt uses a cane to ambulate, lives alone at home and has been able to manage her ADLs before hospitalization. Pt has demonstrated being able to walk around and toilet independently and feels like she is ok going home. Patient will be discharged home with primary care f/u instructions.] Labs and Pending Lab Test: Microbiology 05/06/19 Blood Culture - Preliminary, Resulted No growth 05/06/19 Influenza Types A,B Antigen (RHONDA) - Final, Complete 05/06/19 Urine Culture - Final, Complete NO GROWTH Home Meds Active Reported Ibuprofen 100 Mg Tablet 200 Mg PO Q8H PRN Acetaminophen 325 Mg Capsule 650 Mg PO Q8H PRN Preservision Areds 2 Softgel (Vit C/E/Zn/Coppr/Lutein/Zeaxan) 1 Each Capsule 1 Each PO BID Pantoprazole Sodium 40 Mg Tablet.dr 40 Mg PO DAILY Sucralfate 1 Gm Tablet 1 Gm PO DAILY TAKES BEFORE BREAKFAST Cetirizine HCl 10 Mg Tablet 10 Mg PO HS Aspir 81 (Aspirin) 81 Mg Tablet.dr 81 Mg PO HS Lisinopril 10 Mg Tablet 10 Mg PO HS Advair 250-50 Diskus (Fluticasone/Salmeterol) 1 Each Blst.w.dev 1 Puff IH BID Simvastatin 40 Mg Tablet 40 Mg PO HS Atenolol 50 Mg Tablet 50 Mg PO HS Klor-Con 10 (Potassium Chloride) 10 Meq Tablet.er 10 Meq PO DAILY LAST FILLED 12-27-2017 #90 Activity as Tolerated: Yes Discharge Physical Examination Allergies: Coded Allergies: No Known Drug Allergies (Unverified , 05/24/17) General Appearance: No Apparent Distress, WD/WN HEENT: PERRL/EOMI, Normal ENT Inspection Respiratory: Chest Non Tender, Lungs Clear, Normal Breath Sounds, No Accessory Muscle Use, No Respiratory Distress; No Crackles, No Wheezing Cardiovascular: Regular Rate, Rhythm, No Edema, No Gallop, No JVD, No Murmur, Normal Peripheral Pulses Extremity: Normal Capillary Refill, Normal Inspection, Non Tender, No Calf Tenderness Skin: Normal Color, Warm/Dry Neurologic/Psychiatric: Alert, Oriented x3, Normal Mood/Affect Copy Copies To 1: JAY JAY THOMPSON MD Discharge Summary Date of Admission May 06, 2019 at 20:50 Date of Discharge Clinical Quality Measures DVT/VTE Risk/Contraindication: Risk Factor Score Per Nursin RFS Level Per Nursing on Admit: 4+=Very High VERONICA MAHMOOD MD 05/12/19 1503: Discharge Summary Hospital Course Assessment/Pt DC Instructions Please continue to take your medications as written. Please follow up with your PCP in the next week. Please return to the hospital if you are feeling worse. Discharge Physical Examination Allergies: Coded Allergies: No Known Drug Allergies (Unverified , 05/24/17) Copy Copies To 1: JAY JAY THOMPSON MD Supervisory-Addendum Brief Verification & Attestation Participated in pt care: history, MDM, physical Personally performed: exam, history, MDM, supervision of care Care discussed with: Medical Student Procedures: n/a Results interpretation: Verified all documentation Verification and Attestation of Medical Student E/M Service A medical student performed and documented this service in my presence. I reviewed and verified all information documented by the medical student and made modifications to such information, when appropriate. I personally performed the physical exam and medical decision making. Veronica Mahmood, May 12, 2019,15:02 [facility] May 10, 2019 09:03 VERONICA MAHMOOD MD May 12, 2019 15:03
[2019-05-10] MEDS: PANTOPRAZOLE 40 MG (PROTONIX) TAB PO SCH (09:18)
[2019-05-10] MEDS: AZITHROMYCIN 250 MG TAB (ZITHROMAX) PO SCH (09:18)
[2019-05-10] MEDS: predniSONE 20 MG TAB PO SCH (09:18)
[2019-05-10] MEDS: ASPIRIN E.C. 81 MG (ECOTRIN) TAB PO SCH (09:19)
[2019-05-10] MEDS: CEPHALEXIN 250 MG (KEFLEX) CAP PO SCH (09:20)
[2019-05-10 11:20] VITALS: BP 178/86
--- NOTE | 2019-05-10 11:20 | NUR ---
MARV CUEVAS demonstrates understanding of discharge instructions and accurately returns instructions upon questioning. Copy of Post-Discharge Instructions and Medication Discharge Instructions given to patient. MARV CUEVAS is able to manage continuing needs after discharge. Patients belongings returned to patient. Skin dry and intact; no breakdown noted. Patient discharged from [facility]- on 05/10/19 at 1120 . MARV CUEVAS left floor via w/c, accompanied by staff and friend.
== END 2019-05-10 11:20 | disposition home or self-care (01) | DRG 202 ==
LOC: EDUNIT# 18:16 → ER 18:18 → 4TH 20:50
PROVIDERS: ADMIT Internal Medicine; ATTEND Internal Medicine
DX: J20.9 Acute bronchitis, unspecified (principal); J47.0 Bronchiectasis with acute lower respiratory infection; J98.11 Atelectasis; R09.02 Hypoxemia; I25.10 Atherosclerotic heart disease of native coronary artery without angina pectoris; R59.0 Localized enlarged lymph nodes; I10 Essential (primary) hypertension; R00.0 Tachycardia, unspecified; I25.2 Old myocardial infarction; R53.1 Weakness; Z23 Encounter for immunization; E83.42 Hypomagnesemia; Z86.73 Personal history of transient ischemic attack (TIA), and cerebral infarction without residual deficits
CPT/HCPCS: 36415; 36600; 51702; 71045; 71275; 80053; 81000; 82805; 83605; 83735; 83880; 84145; 84484; 85007; 85025; 85027; 85610; 85730; 87040; 87070; 87088; 87205; 87804; 93005; 93041; 93306; 94640; 94760; 96361; 96365; 96366; 96367; 96368; 96375

== ENCOUNTER 2019-05-12 11:19 | Emergency (ER) | payer MEDICARE, OTHER ==
[~2019-05-12] VITALS: Ht 162.5 cm; Wt 55.7 kg
[~2019-05-12 11:19] MED LIST changes: +ACET325C3 PO; +ASPI-586 PO; +BENZ100C18 PO; +CETI10TA17 PO; +IBUP100T9 PO; +LISI10TA2 PO; +PANT40TA3 PO; +SUCR1TAB PO; +VIT1CAPS44 PO
[2019-05-12 12:02] LABS: BILIRUBIN,URINE NEGATIVE (NEGATIVE); CLARITY,URINE CLEAR; COLOR,URINE YELLOW; GLUCOSE, URINE (UA) NEGATIVE (NEGATIVE); KETONES,URINE NEGATIVE (NEGATIVE); LEUKOCYTE ESTERASE ,URINE 2+ (NEGATIVE); NITRITE,URINE NEGATIVE (NEGATIVE); PH,URINE 7 (5-9); PROTEIN,URINE 2+ (NEGATIVE)
--- NOTE | 2019-05-12 12:09 | ED Abdominal Pain ---
General Chief Complaint: Abdominal/GI Problems Stated Complaint: WEAKNESS Nursing Triage Note: PT TO RM 6 WITH COMPLAINT OF RLQ ABD PAIN. STATES STARTED AROUND 0900. STATES SHE HAS BEEN URINATING FREQUENTLY. GIVEN ZOFRAN BY EMS. Sepsis Screen: No Definite Risk Source of Information: Patient Exam Limitations: No Limitations History of Present Illness Date Seen by Provider: May 12, 2019 Time Seen by Provider: 12:08 Initial Comments To ER with complaints of right lower quadrant abdominal pain that began around 9 AM this morning. She's also had urinary frequency starting today. She was seen here 2 days ago diagnosed with bronchitis but states she was not given any new m edications. She denies fevers chills nausea vomiting diarrhea or constipation. Timing/Duration: 4-6 Hours Severity/Quality: Moderate Location: RLQ Radiation: No Radiation Activities at Onset: None Associated Symptoms: Denies Symptoms Allergies and Home Medications Allergies Coded Allergies: No Known Drug Allergies (Unverified , 05/24/17) Home Medications Acetaminophen 325 Mg Capsule, 650 MG PO Q8H PRN for PAIN-MILD, (Reported) Aspirin 81 Mg Tablet.dr, 81 MG PO HS, (Reported) Atenolol 50 Mg Tablet, 50 MG PO HS, (Reported) Cefuroxime Axetil 500 Mg Tablet, 500 MG PO BID Prescribed by: ERASMO BURRELL on 05/12/19 1334 Cetirizine HCl 10 Mg Tablet, 10 MG PO HS, (Reported) Fluticasone/Salmeterol 1 Each Blst.w.dev, 1 PUFF IH BID, (Reported) Ibuprofen 100 Mg Tablet, 200 MG PO Q8H PRN for PAIN-MILD, (Reported) Lisinopril 10 Mg Tablet, 10 MG PO HS, (Reported) Pantoprazole Sodium 40 Mg Tablet.dr, 40 MG PO DAILY, (Reported) Polyethylene Glycol 3350 17 Gm Powd.pack, 17 GM PO BID Prescribed by: ERASMO BURRELL on 05/12/19 1344 Potassium Chloride 10 Meq Tablet.er, 10 MEQ PO DAILY, (Reported) LAST FILLED 12-27-2017 #90 Simvastatin 40 Mg Tablet, 40 MG PO HS, (Reported) Sucralfate 1 Gm Tablet, 1 GM PO DAILY, (Reported) TAKES BEFORE BREAKFAST Vit C/E/Zn/Coppr/Lutein/Zeaxan 1 Each Capsule, 1 EACH PO BID, (Reported) Patient Home Medication List Home Medication List Reviewed: Yes Review of Systems Review of Systems Constitutional: see HPI EENTM: No Symptoms Reported Respiratory: No Symptoms Reported Cardiovascular: No Symptoms Reported Gastrointestinal: See HPI, Abdominal Pain Genitourinary: No Symptoms Reported Musculoskeletal: no symptoms reported Skin: no symptoms reported Psychiatric/Neurological: No Symptoms Reported Endocrine: No Symptoms Reported Hematologic/Lymphatic: No Symptoms Reported Past Onpwyov-Fdjtbu-Tvbrpt Hx Patient Social History Alcohol Use: Denies Use Recreational Drug Use: No Smoking Status: Never a Smoker Recent Foreign Travel: No Contact w/Someone Who Travel: No Recent Infectious Disease Expo: No Recent Hopitalizations: No Physical Abuse: No Sexual Abuse: No Mistreated: No Fear: No Immunizations Up To Date Tetanus Booster (TDap): Unknown Date of Pneumonia Vaccine: Apr 19, 2016 Date of Influenza Vaccine: Apr 19, 2017 Seasonal Allergies Seasonal Allergies: No Past Medical History Surgeries: Yes Cardiac, Gallbladder, Hysterectomy Respiratory: No Currently Using CPAP: No Currently Using BIPAP: No Cardiac: Yes Coronary Artery Disease, Heart Attack, Hypertension Neurological: 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 PT REFUSED EGD.) Gastrointestinal Bleed Musculoskeletal: No Endocrine: No HEENT: No Cancer: No Psychosocial: No Integumentary: No Blood Disorders: No Family Medical History Congenital heart disease 19 FATHER G8 BROTHER FH: breast cancer G8 SISTER Physical Exam Vital Signs Vital Signs - First Documented 05/12/19 11:21 Temp 36.0 Pulse 79 Resp 28 B/P (MAP) 175/80 (111) Pulse Ox 96 O2 Delivery Room Air Capillary Refill : Less Than 3 Seconds Height/Weight/BMI Height: 5'5.00" Weight: 119lbs. 9.0oz. 54.736047uq; 21.00 BMI Method:Stated General Appearance: WD/WN, no apparent distress Respiratory: lungs clear, normal breath sounds, no respiratory distress, no accessory muscle use Cardiovascular: regular rate, rhythm, no murmur Gastrointestinal: normal bowel sounds, non tender, soft Extremities: normal range of motion, non-tender Neurologic/Psychiatric: alert, normal mood/affect, oriented x 3 Skin: normal color, warm/dry Progress/Results/Core Measures Results/Orders Lab Results Laboratory Tests Test 05/12/19 11:30 05/12/19 12:45 Range/Units Urine Color YELLOW Urine Clarity CLEAR Urine pH 7 5-9 Urine Specific Snyder 1.005 L 1.016-1.022 Urine Protein 2+ H NEGATIVE Urine Glucose (UA) NEGATIVE NEGATIVE Urine Ketones NEGATIVE NEGATIVE Urine Nitrite NEGATIVE NEGATIVE Urine Bilirubin NEGATIVE NEGATIVE Urine Urobilinogen NORMAL NORMAL MG/DL Urine Leukocyte Esterase 2+ H NEGATIVE Urine RBC (Auto) 1+ H NEGATIVE Urine RBC RARE /HPF Urine WBC 10-25 H /HPF Urine Squamous Epithelial Cells 5-10 /HPF Urine Crystals NONE /LPF Urine Bacteria TRACE /HPF Urine Casts NONE /LPF Urine Mucus NEGATIVE /LPF Urine Culture Indicated YES White Blood Count 20.9 H 4.3-11.0 10^3/uL Red Blood Count 4.34 L 4.35-5.85 10^6/uL Hemoglobin 12.7 11.5-16.0 G/DL Hematocrit 39 35-52 % Mean Corpuscular Volume 89 80-99 FL Mean Corpuscular Hemoglobin 29 25-34 PG Mean Corpuscular Hemoglobin Concent 33 32-36 G/DL Red Cell Distribution Width 14.6 H 10.0-14.5 % Platelet Count 234 130-400 10^3/uL Mean Platelet Volume 10.5 H 7.4-10.4 FL Neutrophils (%) (Auto) 63 42-75 % Lymphocytes (%) (Auto) 11 L 12-44 % Monocytes (%) (Auto) 7 0-12 % Eosinophils (%) (Auto) 19 H 0-10 % Basophils (%) (Auto) 0 0-10 % Neutrophils # (Auto) 13.1 H 1.8-7.8 X 10^3 Lymphocytes # (Auto) 2.4 1.0-4.0 X 10^3 Monocytes # (Auto) 1.4 H 0.0-1.0 X 10^3 Eosinophils # (Auto) 3.9 H 0.0-0.3 10^3/uL Basophils # (Auto) 0.1 0.0-0.1 10^3/uL Neutrophils % (Manual) 61 % Lymphocytes % (Manual) 16 % Monocytes % (Manual) 8 % Eosinophils % (Manual) 15 % Blood Morphology Comment NORMAL Sodium Level 140 135-145 MMOL/L Potassium Level 4.1 3.6-5.0 MMOL/L Chloride Level 102 98-107 MMOL/L Carbon Dioxide Level 25 21-32 MMOL/L Anion Gap 13 5-14 MMOL/L Blood Urea Nitrogen 30 H 7-18 MG/DL Creatinine 0.96 0.60-1.30 MG/DL Estimat Glomerular Filtration Rate 55 BUN/Creatinine Ratio 31 Glucose Level 97 70-105 MG/DL Calcium Level 9.0 8.5-10.1 MG/DL Corrected Calcium 9.5 8.5-10.1 MG/DL Total Bilirubin 0.4 0.1-1.0 MG/DL Aspartate Amino Transf (AST/SGOT) 19 5-34 U/L Alanine Aminotransferase (ALT/SGPT) 20 0-55 U/L Alkaline Phosphatase 107 40-136 U/L Total Protein 5.7 L 6.4-8.2 GM/DL Albumin 3.4 3.2-4.5 GM/DL My Orders Orders - ERASMO BURRELL APRN Ua Culture If Indicated (05/12/19 11:49) Cbc With Automated Diff (05/12/19 11:49) Comprehensive Metabolic Panel (05/12/19 11:49) Ct Abd/Pelvis Wo(Kidney Stone) (05/12/19 11:50) Urine Culture (05/12/19 11:30) Manual Differential (05/12/19 12:45) Chest 1 View, Ap/Pa Only (05/12/19 13:18) Vital Signs/I&O 05/12/19 05/12/19 11:21 15:32 Temp 36.0 Pulse 79 81 Resp 28 20 B/P (MAP) 175/80 (111) 185/91 Pulse Ox 96 96 O2 Delivery Room Air Room Air Blood Pressure Mean: 111 Diagnostic Imaging Diagonstic Imaging: CT Comments NAME: MARV CUEVAS [facility] REC#: [id number] PT STATUS: REG ER : 1931 PHYSICIAN: ERASMO BURRELL APRN ADMIT DATE: 05/12/19/ER Draft Date of Exam:05/12/19 CT ABD/PELVIS WO(KIDNEY STONE) PROCEDURE: CT urinary tract, rule out kidney stone. TECHNIQUE: Multiple contiguous axial images were obtained through the abdomen and pelvis without the use of intravenous contrast. Auto Exposure Controls were utilized during the CT exam to meet ALARA standards for radiation dose reduction. INDICATION: Right lower quadrant pain and nausea. COMPARISON: No prior studies are available for comparison. FINDINGS: The lung bases are clear of acute infiltrates. There is some scarring in the lingula and right lower lobe. The gallbladder is surgically absent. No discrete liver mass is detected. No biliary ductal dilatation is seen. The pancreas and spleen are unremarkable. No adrenal mass is detected. No definite ureteral calculi are seen. There is a tiny nonobstructing calculus in mid left kidney. Cortical low density lesion in anterior aspect of the lower pole right kidney is noted measuring 2.8 cm and most suggestive of a cyst. Aorta is heavily calcified but non-aneurysmal. Moderate stool is seen in the right colon. No definite bowel obstruction is identified. No free fluid or fluid collection is identified. There is some laxity in the midline anterior abdominal wall. There small fat-containing umbilical hernia is noted. Bladder is unremarkable. Uterus appears to be surgically absent. There are old left hemipelvic fractures. IMPRESSION: 1. Tiny nonobstructing left renal calculus. No definite ureteral calculi or hydronephrosis is seen. 2. Right renal cyst. 3. Moderate stool in the right colon. No acute feature in the abdomen or pelvis is identified. Dictated on workstation # [id number] Dict: 05/12/19 1235 Trans: 05/12/19 1243 [facility] [id number] Interpreted by: HEMAL PEGUERO MD Electronically signed by: Departure Communication (Admissions) Her leukocytosis is explained by recent admission and prednisone use. I discussed with her the findings and the plan to discharge home. Her response is "I can't go home I can't take care of myself.". I will consult hospital social worker. This would be an emergency fpc placement as she is not fit to return home to take care of herself she feels. However she has no indication for hospital admission either. She is agreeable to fpc placement. 1530-I spoke directly with admission steam from via [facility], [place], they would like for me to write the admission orders which should include antibiotics for her UTI, albuterol for her recent admission for bronchitis with hypoxia, I also spoken with Dr. Thompson directly and she'll Asif directly, Dilan Gold will send over any additional orders needed and see the patient himself tomorrow or the patient will be seen by SALMA SRIVASTAVA next week. Impression Primary Impression: Urinary tract infection Qualified Codes: N30.00 - Acute cystitis without hematuria Additional Impression: Constipation Qualified Codes: K59.00 - Constipation, unspecified Disposition: 03 XFER SNF Condition: Stable Departure-Patient Inst. Decision time for Depature: 12:33 Referrals: JAY JAY THOMPSON MD (PCP/Family) Primary Care Physician Patient Instructions: Constipation in Adults, Urinary Tract Infection, Adult (DC) Add. Discharge Instructions: . Laxatives as directed and antibiotics as directed Scripts Polyethylene Glycol 3350 (Miralax) 17 Gm Powd.pack 17 GM PO BID, #14 EACH Prov: ERASMO BURRELL COMPUTER EQUIPMENT INSTALLER 05/12/19 Cefuroxime Axetil (Cefuroxime) 500 Mg Tablet 500 MG PO BID, #10 TAB Prov: ERASMO BURRELL COMPUTER EQUIPMENT INSTALLER 05/12/19 ERASMO BURRELL COMPUTER EQUIPMENT INSTALLER May 12, 2019 12:09
[2019-05-12 12:16] LABS: BACTERIA,URINE TRACE /HPF; RBC,URINE RARE /HPF
--- NOTE | 2019-05-12 12:43 | Diagnostic Imaging Report ---
PROCEDURE: CT urinary tract, rule out kidney stone. TECHNIQUE: Multiple contiguous axial images were obtained through the abdomen and pelvis without the use of intravenous contrast. Auto Exposure Controls were utilized during the CT exam to meet ALARA standards for radiation dose reduction. INDICATION: Right lower quadrant pain and nausea. COMPARISON: No prior studies are available for comparison. FINDINGS: The lung bases are clear of acute infiltrates. There is some scarring in the lingula and right lower lobe. The gallbladder is surgically absent. No discrete liver mass is detected. No biliary ductal dilatation is seen. The pancreas and spleen are unremarkable. No adrenal mass is detected. No definite ureteral calculi are seen. There is a tiny nonobstructing calculus in mid left kidney. Cortical low density lesion in anterior aspect of the lower pole right kidney is noted measuring 2.8 cm and most suggestive of a cyst. Aorta is heavily calcified but non-aneurysmal. Moderate stool is seen in the right colon. No definite bowel obstruction is identified. No free fluid or fluid collection is identified. There is some laxity in the midline anterior abdominal wall. There small fat-containing umbilical hernia is noted. Bladder is unremarkable. Uterus appears to be surgically absent. There are old left hemipelvic fractures. IMPRESSION: 1. Tiny nonobstructing left renal calculus. No definite ureteral calculi or hydronephrosis is seen. 2. Right renal cyst. 3. Moderate stool in the right colon. No acute feature in the abdomen or pelvis is identified. Dictated by: Dictated on workstation # [id number]
[2019-05-12 13:03] LABS: BASOPHILS # (AUTO) 0.1 10^3/uL (0.0-0.1); BASOPHILS % (AUTO) 0 % (0-10); EOSINOPHILS # (AUTO) 3.9 10^3/uL (0.0-0.3); EOSINOPHILS % (AUTO) 19 % (0-10); HEMATOCRIT 39 % (35-52); HEMOGLOBIN 12.7 G/DL (11.5-16.0); LYMPHOCYTES # (AUTO) 2.4 X 10^3 (1.0-4.0); LYMPHOCYTES % (AUTO) 11 % (12-44); MEAN CORPUSCULAR HEMOGLOBIN 29 PG (25-34); MEAN CORPUSCULAR HGB CONC 33 G/DL (32-36); MEAN CORPUSCULAR VOLUME 89 FL (80-99); MEAN PLATELET VOLUME 10.5 FL (7.4-10.4); MONOCYTES # (AUTO) 1.4 X 10^3 (0.0-1.0); MONOCYTES % (AUTO) 7 % (0-12); NEUTROPHILS # (AUTO) 13.1 X 10^3 (1.8-7.8); NEUTROPHILS % (AUTO) 63 % (42-75); PLATELET COUNT 234 10^3/uL (130-400); RED CELL DISTRIBUTION WIDTH 14.6 % (10.0-14.5); WHITE BLOOD COUNT 20.9 10^3/uL (4.3-11.0)
[2019-05-12 13:19] LABS: ALBUMIN 3.4 GM/DL (3.2-4.5); BILIRUBIN,TOTAL 0.4 MG/DL (0.1-1.0); CREATININE SERUM 0.96 MG/DL (0.60-1.30); POTASSIUM 4.1 MMOL/L (3.6-5.0); TOTAL PROTEIN 5.7 GM/DL (6.4-8.2)
[2019-05-12 13:34] LABS: EOSINOPHILS % (MANUAL) 15 %; LYMPHOCYTES % (MANUAL) 16 %; MONOCYTES % (MANUAL) 8 %; NEUTROPHILS % (MANUAL) 61 %
[2019-05-12] MEDS ORDERED: CEFU500T63 PO (13:34)
[2019-05-12 13:35] LABS: RBC MORPH NORMAL
[2019-05-12] MEDS ORDERED: POLY17PO6 PO (13:44)
--- NOTE | 2019-05-12 13:48 | Diagnostic Imaging Report ---
INDICATION: Nausea. Frequent urination COMPARISON: 05/07/2019 FINDINGS: Single frontal view of the chest demonstrates normal heart size and pulmonary vascularity. The lungs are well aerated and clear. No large pleural effusion or pneumothorax is seen. The visualized osseous structures show no acute abnormalities. Calcified aortic atherosclerosis is noted. IMPRESSION: 1. No acute cardiopulmonary process. Dictated by: Dictated on workstation # [id number]
--- NOTE | 2019-05-12 14:41 | NUR ---
Discharge planning: This RN WAS called to patient's room in ED after she was set for discharge to home but voiced that she couldn't go there because she cannot take care of herself. I have spoken to the patient w=who reports that she was discharged last week and felt fine eating and drinking and then started getting weaker. She presented today to the ED and found to have UTI and constipation. Patient is agreeable to SNF placement with possibility that Assisted Living may be in the cards for her at some point. We discussed options for placement and said "anywhere that has a bed". I have sent clinical information to [facility] and am awaiting there determination.
--- NOTE | 2019-05-12 15:14 | NUR ---
DISCHARGE PLANNING: Patient has been accepted to [facility] for emergency skilled placement. They will let the ED know when they can get her, with the understanding that she is ready for discharge now.
[2019-05-12 15:32] VITALS: BP 185/91
[2019-05-16] MEDS ORDERED: AMOX500C2 PO (11:56)
== END 2019-05-12 15:32 | disposition home or self-care (01) ==
LOC: EDUNIT# 11:19 → ER 11:20
DX: N39.0 Urinary tract infection, site not specified (principal); K59.00 Constipation, unspecified; I10 Essential (primary) hypertension; I25.10 Atherosclerotic heart disease of native coronary artery without angina pectoris; E78.00 Pure hypercholesterolemia, unspecified; Z86.73 Personal history of transient ischemic attack (TIA), and cerebral infarction without residual deficits; Z79.82 Long term (current) use of aspirin; Z79.51 Long term (current) use of inhaled steroids; Z90.710 Acquired absence of both cervix and uterus; Z82.49 Family history of ischemic heart disease and other diseases of the circulatory system; Z80.3 Family history of malignant neoplasm of breast
CPT/HCPCS: 36415; 71045; 74176; 80053; 81000; 85007; 85027; 87077; 87088; 87186

== ENCOUNTER 2019-06-19 04:29 | Inpatient (IN) | payer MEDICARE, OTHER ==
[~2019-06-19] VITALS: Ht 165.1 cm; Wt 52.7 kg
[~2019-06-19 04:29] MED LIST changes: +AMOX500C2 PO; +CEFU500T63 PO; +POLY17PO6 PO
[2019-06-19 04:45] LABS: BASOPHILS % (AUTO) 0 % (0-10); EOSINOPHILS # (AUTO) 0.5 10^3/uL (0.0-0.3); EOSINOPHILS % (AUTO) 4 % (0-10); HEMATOCRIT 38 % (35-52); HEMOGLOBIN 12.7 G/DL (11.5-16.0); LYMPHOCYTES # (AUTO) 1.6 X 10^3 (1.0-4.0); LYMPHOCYTES % (AUTO) 14 % (12-44); MEAN CORPUSCULAR HEMOGLOBIN 30 PG (25-34); MEAN CORPUSCULAR HGB CONC 33 G/DL (32-36); MEAN CORPUSCULAR VOLUME 90 FL (80-99); MONOCYTES # (AUTO) 1.1 X 10^3 (0.0-1.0); MONOCYTES % (AUTO) 10 % (0-12); NEUTROPHILS # (AUTO) 8.1 X 10^3 (1.8-7.8); NEUTROPHILS % (AUTO) 71 % (42-75); PLATELET COUNT 188 10^3/uL (130-400); RED CELL DISTRIBUTION WIDTH 14.4 % (10.0-14.5); WHITE BLOOD COUNT 11.3 10^3/uL (4.3-11.0)
[2019-06-19] MEDS ORDERED: BENZONATATE 100 MG (TESSALON) CAPSULE PO ONE (04:45)
[2019-06-19 05:04] LABS: BILIRUBIN,TOTAL 0.5 MG/DL (0.1-1.0); CALCIUM 9.2 MG/DL (8.5-10.1); CREATININE SERUM 1.17 MG/DL (0.60-1.30); TOTAL PROTEIN 6.6 GM/DL (6.4-8.2)
[2019-06-19] MEDS ORDERED: methylPREDNISolone 125 MG (Solu-MEDROL) VIAL IVP ONE (05:45)
[2019-06-19] MEDS ORDERED: AZITHROMYCIN INJECTION 500 MG in NS (IVPB) 250 ML IV ONE (05:45)
--- NOTE | 2019-06-19 05:55 | ED General ---
General Chief Complaint: Cough/Cold/Flu Symptoms Stated Complaint: COUGH,CHILLS Nursing Triage Note: PT PRESENTS TO ED ROOM SEVEN VIA EMS C/O COUGH AND SOB THAT HAS BEEN ONGOING FOR ONE WEEK. PT STATES SHE WAS DISCHARGED FROM A FACILITY 3WKS AGO FOR BROCHITIS, STATES SHE STARTED FEELING POOR SHORTLY AFTER. PT DENIES FEVER, DENIES CHEST PAIN Nursing Sepsis Screen: Possible Severe Sepsis Risk Source of Information: Patient, EMS, Old Records Exam Limitations: No Limitations History of Present Illness Date Seen by Provider: Jun 19, 2019 Time Seen by Provider: 04:30 Initial Comments This 89-year-old woman presents to the emergency room via EMS with complaints of persistent intense cough and shortness of air. This has been a worsening problem for about a week as. She reports recently being treated at another facility for bronchitis. She was also admitted and treated at [facility] in April for pyelonephritis. EMS reports patient's cough was nonstop in route. She is afebrile and denies chest pain. She denies history of COPD although she is on multiple COPD medications. EMS reported oxygen saturation of 88 percent on room air with congested respiratory sounds. Oxygen saturation improved to 98 percent with a DuoNeb treatment. Allergies and Home Medications Allergies Coded Allergies: No Known Drug Allergies (Unverified , 05/24/17) Home Medications Acetaminophen 325 Mg Capsule, 650 MG PO Q8H PRN for PAIN-MILD, (Reported) Amoxicillin 500 Mg Capsule, 500 MG PO TID Prescribed by: FRAN PINEDA on 05/16/19 1156 Aspirin 81 Mg Tablet.dr, 81 MG PO HS, (Reported) Atenolol 50 Mg Tablet, 50 MG PO HS, (Reported) Cetirizine HCl 10 Mg Tablet, 10 MG PO HS, (Reported) Fluticasone/Salmeterol 1 Each Blst.w.dev, 1 PUFF IH BID, (Reported) Ibuprofen 100 Mg Tablet, 200 MG PO Q8H PRN for PAIN-MILD, (Reported) Lisinopril 10 Mg Tablet, 10 MG PO HS, (Reported) Pantoprazole Sodium 40 Mg Tablet.dr, 40 MG PO DAILY, (Reported) Polyethylene Glycol 3350 17 Gm Powd.pack, 17 GM PO BID Prescribed by: ERASMO BURRELL on 05/12/19 1344 Potassium Chloride 10 Meq Tablet.er, 10 MEQ PO DAILY, (Reported) LAST FILLED 12-27-2017 #90 Simvastatin 40 Mg Tablet, 40 MG PO HS, (Reported) Sucralfate 1 Gm Tablet, 1 GM PO DAILY, (Reported) TAKES BEFORE BREAKFAST Vit C/E/Zn/Coppr/Lutein/Zeaxan 1 Each Capsule, 1 EACH PO BID, (Reported) Patient Home Medication List Home Medication List Reviewed: Yes Review of Systems Review of Systems Constitutional: no symptoms reported EENTM: no symptoms reported Respiratory: see HPI Cardiovascular: no symptoms reported Gastrointestinal: no symptoms reported Genitourinary: no symptoms reported : No Musculoskeletal: no symptoms reported Skin: no symptoms reported Psychiatric/Neurological: No Symptoms Reported Hematologic/Lymphatic: No Symptoms Reported Past Cuzuzzr-Maydzy-Dzuyyn Hx Past Med/Social Hx: Reviewed Nursing Past Med/Soc Hx Patient Social History Alcohol Use: Denies Use Recreational Drug Use: No Smoking Status: Never a Smoker 2nd Hand Smoke Exposure: No Recent Foreign Travel: No Contact w/Someone Who Travel: No Recent Infectious Disease Expo: No Recent Hopitalizations: No Physical Abuse: No Sexual Abuse: No Mistreated: No Fear: No Immunizations Up To Date Tetanus Booster (TDap): More than 5yrs PED Vaccines UTD: Yes Date of Pneumonia Vaccine: Apr 19, 2016 Date of Influenza Vaccine: May 10, 2019 Seasonal Allergies Seasonal Allergies: No Past Medical History Surgeries: Yes Cardiac, Gallbladder, Hysterectomy Respiratory: No Currently Using CPAP: No Currently Using BIPAP: No Cardiac: Yes Coronary Artery Disease, Heart Attack, Hypertension 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 PT REFUSED EGD.) Gastrointestinal Bleed Musculoskeletal: No Endocrine: No HEENT: No Cancer: No Psychosocial: No Integumentary: No Blood Disorders: No Family Medical History Congenital heart disease 19 FATHER G8 BROTHER FH: breast cancer G8 SISTER Physical Exam Vital Signs Vital Signs - First Documented 06/19/19 06/19/19 04:40 04:56 Temp 37.0 Pulse 101 Resp 22 B/P (MAP) 171/87 (115) Pulse Ox 99 O2 Delivery Nasal Cannula O2 Flow Rate 3.00 Capillary Refill : Less Than 3 Seconds Height, Weight, BMI Height: 5'5.00" Weight: 119lbs. 9.0oz. [id number]; 21.00 BMI Method:Stated General Appearance: WD/WN, Mild Distress HEENT: PERRL/EOMI, Normal ENT Inspection Neck: Normal Inspection Respiratory: No Accessory Muscle Use, No Respiratory Distress, Wheezing, Other (Persistent coughing) Cardiovascular: Regular Rate, Rhythm, No Edema, No Murmur, Normal Peripheral Pulses Extremity: Normal Capillary Refill, Normal Inspection, No Pedal Edema Neurologic/Psychiatric: Alert, Oriented x3, No Motor/Sensory Deficits, Normal Mood/Affect, cornice maker II-XII Norm as Tested Skin: Normal Color, Warm/Dry Progress/Results/Core Measures Suspected Sepsis Recent Fever Within 48 Hours: No Infection Criteria Present: Suspected New Infection New/Unexplained Altered Menta: No Sepsis Screen: Possible Severe Sepsis Risk SIRS Temperature: Pulse: 101 Respiratory Rate: 22 Laboratory Tests 06/19/19 04:34: White Blood Count 11.3H Blood Pressure 171 /87 Mean: 115 Laboratory Tests 06/19/19 04:34: Creatinine 1.17, Platelet Count 188, Total Bilirubin 0.5 Results/Orders Lab Results Laboratory Tests Test 06/19/19 04:34 Range/Units White Blood Count 11.3 H 4.3-11.0 10^3/uL Red Blood Count 4.23 L 4.35-5.85 10^6/uL Hemoglobin 12.7 11.5-16.0 G/DL Hematocrit 38 35-52 % Mean Corpuscular Volume 90 80-99 FL Mean Corpuscular Hemoglobin 30 25-34 PG Mean Corpuscular Hemoglobin Concent 33 32-36 G/DL Red Cell Distribution Width 14.4 10.0-14.5 % Platelet Count 188 130-400 10^3/uL Mean Platelet Volume 11.0 H 7.4-10.4 FL Neutrophils (%) (Auto) 71 42-75 % Lymphocytes (%) (Auto) 14 12-44 % Monocytes (%) (Auto) 10 0-12 % Eosinophils (%) (Auto) 4 0-10 % Basophils (%) (Auto) 0 0-10 % Neutrophils # (Auto) 8.1 H 1.8-7.8 X 10^3 Lymphocytes # (Auto) 1.6 1.0-4.0 X 10^3 Monocytes # (Auto) 1.1 H 0.0-1.0 X 10^3 Eosinophils # (Auto) 0.5 H 0.0-0.3 10^3/uL Basophils # (Auto) 0.0 0.0-0.1 10^3/uL Sodium Level 141 135-145 MMOL/L Potassium Level 4.0 3.6-5.0 MMOL/L Chloride Level 108 H 98-107 MMOL/L Carbon Dioxide Level 21 21-32 MMOL/L Anion Gap 12 5-14 MMOL/L Blood Urea Nitrogen 13 7-18 MG/DL Creatinine 1.17 0.60-1.30 MG/DL Estimat Glomerular Filtration Rate 44 BUN/Creatinine Ratio 11 Glucose Level 125 H 70-105 MG/DL Calcium Level 9.2 8.5-10.1 MG/DL Corrected Calcium 9.2 8.5-10.1 MG/DL Total Bilirubin 0.5 0.1-1.0 MG/DL Aspartate Amino Transf (AST/SGOT) 23 5-34 U/L Alanine Aminotransferase (ALT/SGPT) 14 0-55 U/L Alkaline Phosphatase 120 40-136 U/L C-Reactive Protein High Sensitivity 0.07 0.00-0.50 MG/DL B-Type Natriuretic Peptide 262.7 H <100.0 PG/ML Total Protein 6.6 6.4-8.2 GM/DL Albumin 4.0 3.2-4.5 GM/DL Micro Results Microbiology 06/19/19 Influenza Types A,B Antigen (RHONDA) - Final, Complete My Orders Orders - NIDIA SALOMON MD BNP (06/19/19 04:36) Cbc With Automated Diff (06/19/19 04:36) Comprehensive Metabolic Panel (06/19/19 04:36) Hs C Reactive Protein (06/19/19 04:36) Influenza A And B Antigens (06/19/19 04:36) Ed Iv/Invasive Line Start (06/19/19 04:36) Ekg Tracing (06/19/19 04:36) Monitor-Rhythm Ecg Trace Only (06/19/19 04:36) Benzonatate Capsule (Tessalon Perles) (06/19/19 04:45) Chest 1 View, Ap/Pa Only (06/19/19 ) Methylprednisolone Sod Succ (Solu-Medrol (06/19/19 05:45) Azithromycin Injection (Zithromax Inject (06/19/19 05:45) Medications Given in ED Current Medications Medications Dose Ordered Sig/Rigo Route Start Time Stop Time Status Last Admin Dose Admin Azithromycin 500 mg/Sodium Chloride 250 ml @ 250 mls/hr ONCE ONCE IV 06/19/19 05:45 06/19/19 06:44 DC 06/19/19 06:32 250 MLS/HR Benzonatate 200 mg ONCE ONCE PO 06/19/19 04:45 06/19/19 04:47 DC 06/19/19 04:43 200 MG Methylprednisolone Sodium Succinate 125 mg ONCE ONCE IVP 06/19/19 05:45 06/19/19 05:46 DC 06/19/19 05:46 125 MG Vital Signs/I&O 06/19/19 06/19/19 04:40 04:56 Temp 37.0 Pulse 101 Resp 22 B/P (MAP) 171/87 (115) Pulse Ox 99 O2 Delivery Nasal Cannula Room Air O2 Flow Rate 3.00 3.00 Capillary Refill : Less Than 3 Seconds Blood Pressure Mean: 115 POS Progress Note : Progress Note Patient was treated with Solu-Medrol, DuoNeb, and Tessalon Perles. Given hypoxia and worsening condition, admission was felt appropriate. Because of her age in the persistence of her respiratory symptoms, azithromycin is being included in her treatment regimen. ECG Initial ECG Impression Date: Jun 19, 2019 Initial ECG Impression Time: 04:48 Initial ECG Rate: 86 Initial ECG Rhythm: Normal Sinus Initial ECG Intervals: Normal Initial ECG Impression: Normal Comment Normal sinus rhythm with no ST elevation or depression. No abnormal intervals. Probable LVH. Diagnostic Imaging Diagonstic Imaging: Xray Plain Films/CT/US/NM/MRI: chest Comments Chest x-ray viewed by me. Report not yet available. Basilar atelectasis with no other acute abnormalities when compared with prior. Departure Communication (Admissions) Time/Spoke to Admitting Phy: 05:35 Dr. Pineda Impression Primary Impression: COPD exacerbation Additional Impression: Hypoxia Disposition: 09 ADMITTED INPATIENT Condition: Improved Admissions Decision to Admit Reason: Admit from ER (General) Decision to Admit/Date: Jun 19, 2019 Time/Decision to Admit Time: 05:30 Departure-Patient Inst. Referrals: JAY JAY THOMPSON MD (PCP/Family) Primary Care Physician NIDIA SALOMON MD Jun 19, 2019 05:55 POS
[2019-06-19] MEDS ORDERED: NS (IVPB) 250 ML ONE (06:22)
[2019-06-19] MEDS ORDERED: AZITHROMYCIN 500 MG (ZITHROMAX) VIAL ONE (06:22)
--- NOTE | 2019-06-19 06:30 | Diagnostic Imaging Report ---
INDICATION: Shortness of breath. Compared 05/13/2019 FINDINGS: The lungs are clear although hyperexpanded. No infiltrate, effusion or pneumothorax. There was no failure. IMPRESSION: Clear hyperexpanded lungs, otherwise negative. Dictated by: Dictated on workstation # [id number]
--- NOTE | 2019-06-19 07:00 | NUR ---
MARV CUEVAS admitted to room 420-1, with an admitting diagnosis of COPD EX , on 06/19/19 from ED via CART, accompanied by STAFF. MARV CUEVAS introduced to surroundings, call light, bed controls, phone, TV, temperature control, lights, meal times, smoking policy, visitor policy, side rail policy, bathrooms and showers. Patient Rights given to patient in the handbook.MARV CUEVAS verbalizes understanding that [facility] is not responsible for the loss or damage to any personal effects or valuables that are kept in the patients posession during their hospitalization.
[2019-06-19] MEDS ORDERED: RT-ALBUTEROL SULF 2.5 MG/3 ML PRE-MIX VIAL INH PRN (07:15)
[2019-06-19] MEDS ORDERED: BENZONATATE 100 MG (TESSALON) CAPSULE PO PRN ×2 (07:15→12:30)
[2019-06-19 08:00] VITALS: BP 130/76
[2019-06-19] MEDS: HYDROCHLOROTHIAZIDE 12.5 MG (HCTZ) CAP PO SCH (08:50)
[2019-06-19] MEDS: ATENOLOL 50 MG (TENORMIN) TAB PO SCH (08:51)
[2019-06-19] MEDS: ASPIRIN 81 MG CHEW (CHILDREN'S ASA) PO SCH (08:51)
[2019-06-19 09:13] VITALS: BP 130/76
[2019-06-19] MEDS ORDERED: MULT-974 PO (10:36)
[2019-06-19] MEDS ORDERED: CALC1TAB29 PO (10:37)
[2019-06-19] MEDS ORDERED: FLUT9.9S NS (10:39)
[2019-06-19] MEDS ORDERED: IPRA4AER IH (10:40)
[2019-06-19] MEDS ORDERED: MONT10TA21 PO (10:41)
[2019-06-19] MEDS ORDERED: SODI30SP2 NSEACH (10:42)
[2019-06-19] MEDS ORDERED: CETI10CA PO (10:44)
[2019-06-19] MEDS ORDERED: HYDR12.5 PO (10:45)
[2019-06-19] MEDS: RT-ALBUTEROL/IPRATROPIUM 3 ML (DUONEB) VIAL IH SCH ×4 (11:32→22:45)
[2019-06-19 12:00] VITALS: BP 126/72
[2019-06-19] MEDS ORDERED: predniSONE 20 MG TAB PO NR (12:00)
--- NOTE | 2019-06-19 12:19 | History & Physical-Hospitalist ---
History of Present Illness HPI/Chief Complaint Pt is an 89yoCF known to me from previous admissions who presented to the ER due to SOB. She states it was similar to her previous episodes of bronchitis. She was admitted a few weeks ago and responded well to steroids. She discharged to a SNF and did well and was discharged home where she was until last night. She sta elizabeth over the past few days she has had increasing nocturnal dyspnea and even orthopnea. She awoke last night coughing and couldn't catch her breath so pressed her medical alert button and was brought to the ER for evaluation. She was found to be hypoxic on arrival and had persistent coughing but no wheezing. She was given a DuoNeb and had significant improvement in her symptoms. This morning she reports she is feeling much better and breathing has improved. She does not believe she has seen a lung doctor previously but follow with Dr Alvarez for sinus issues. Source: patient Date Seen 06/19/19 Time Seen by a Provider: 12:13 Attending Physician Ninfa Lockhart MD PCP Sandoval Penn MD Referring Physician Date of Admission Jun 19, 2019 at 05:49 Home Medications & Allergies Home Medications Reviewed patient Home Medication Reconciliation performed by pharmacy medication reconciliations alternative energy technician and/or nursing. Patients Allergies have been reviewed. Allergies Allergies Coded Allergies No Known Drug Allergies (Xuxekofuqx06/5/17) Past Llugddn-Psyift-Usprkw Hx Past Med/Social Hx: Reviewed Nursing Past Med/Soc Hx Patient Social History Employed/Student: retired Alcohol Use: Denies Use Recreational Drug Use: No Smoking Status: Never a Smoker 2nd Hand Smoke Exposure: No Recent Foreign Travel: No Contact w/other who traveled: No Recent Hopitalizations: No Recent Infectious Disease Expo: No Immunizations Up To Date Tetanus Booster (TDap): More than 5yrs Pediatric: Yes Date of Pneumonia Vaccine: Apr 19, 2016 Date of Influenza Vaccine: May 10, 2019 Seasonal Allergies Seasonal Allergies: No Past Medical History Surgeries: Cardiac, Gallbladder, Hysterectomy Currently Using CPAP: No Currently Using BIPAP: No Cardiac: Coronary Artery Disease, Heart Attack, Hypertension Neurological: Stroke : No Reproductive: No Menopausal Gastrointestinal: Gastrointestinal Bleed History of Blood Disorders: No Family History Congenital heart disease 19 FATHER G8 BROTHER FH: breast cancer G8 SISTER Review of Systems Constitutional: No chills; diaphoresis; No fever EENTM: other (chronic sinus issues) Respiratory: cough; No dyspnea on exertion, No hemoptysis; orthopnea; No phlegm; short of breath Cardiovascular: No chest pain, No edema, No palpitations Gastrointestinal: no symptoms reported Genitourinary: no symptoms reported Musculoskeletal: no symptoms reported Skin: no symptoms reported Psychiatric/Neurological: No Symptoms Reported Physical Exam Physical Exam Vital Signs Vital Signs - First Documented 06/19/19 06/19/19 04:40 04:56 Temp 37.0 Pulse 101 Resp 22 B/P (MAP) 171/87 (115) Pulse Ox 99 O2 Delivery Nasal Cannula O2 Flow Rate 3.00 Capillary Refill : Less Than 3 Seconds Height, Weight, BMI Height: 5'5.00" Weight: 119lbs. 9.0oz. 54.800687jq; 19.33 BMI Method:Stated General Appearance: No Apparent Distress, Chronically ill, Thin Neck: Normal Inspection, Supple Respiratory: Lungs Clear, No Accessory Muscle Use, No Respiratory Distress; No Rhonci, No Wheezing Cardiovascular: Regular Rate, Rhythm, No Murmur Gastrointestinal: Normal Bowel Sounds, Non Tender, Soft Neurologic/Psychiatric: Alert, Oriented x3, Normal Mood/Affect Skin: Normal Color, Warm/Dry Results Results/Procedures Labs Laboratory Tests 06/19/19 04:34 Patient resulted labs reviewed. Imaging: Reviewed Imaging Report Assessment/Plan Admission Diagnosis COPD Exacerbation Admission Status: Inpatient Order (span 2 midnights) Reason for Inpatient Admission: high risk for decompensation if discharged, hypoxic, needs at least two midnights to stabilize for DC Assessment and Plan COPD Exacerbation Chronic Sinusitis Persistent cough Consult pulm Continue steroids, advair, singulair, MAT protocol Tessalon added for cough Will check for pertussis Will get echo given orthopnea and slightly elevated BNP HTN Continue home meds Hold lisinopril in case causing cough Diagnosis/Problems Diagnosis/Problems (1) COPD exacerbation Status: Acute (2) Essential (primary) hypertension (3) Hypoxia Status: Acute VERONICA MANE MD Jun 19, 2019 12:19 POS
--- NOTE | 2019-06-19 15:32 | NUR ---
HAS NOW REFUSED SCDS.
[2019-06-19 16:00] VITALS: BP 121/70
[2019-06-19] MEDS: SIMvastatin 40 MG (ZOCOR) TAB PO SCH (19:59)
[2019-06-19] MEDS: MONTELUKAST 10 MG (SINGULAIR) TAB PO SCH (19:59)
[2019-06-19 20:00] VITALS: BP 115/69
[2019-06-19] MEDS ORDERED: lisINopril 10 MG (PRINIVIL) TABLET PO SCH (21:00)
[2019-06-20] VITALS (7 sets, daily range): BP systolic 70–147; BP diastolic 59–76
[2019-06-20] MEDS: RT-ALBUTEROL/IPRATROPIUM 3 ML (DUONEB) VIAL IH SCH ×6 (02:14→23:12)
[2019-06-20] MEDS: predniSONE 20 MG TAB PO SCH (06:06)
--- NOTE | 2019-06-20 07:15 | NUR ---
DR. BAUGH NOTIFIED OF PT CONSULT.
[2019-06-20] MEDS: ATENOLOL 50 MG (TENORMIN) TAB PO SCH (09:11)
[2019-06-20] MEDS: HYDROCHLOROTHIAZIDE 12.5 MG (HCTZ) CAP PO SCH (09:11)
[2019-06-20] MEDS: ASPIRIN 81 MG CHEW (CHILDREN'S ASA) PO SCH (09:11)
--- NOTE | 2019-06-20 11:14 | Progress Note - Hospitalist ---
Subjective HPI/CC On Admission Date Seen by Provider: Jun 20, 2019 Time Seen by Provider: 11:11 Pt is an 89yoCF known to me from previous admissions who presented to the ER due to SOB. She states it was similar to her previous episodes of bronchitis. She was admitted a few weeks ago and responded well to steroids. She discharged to a SNF and did well and was discharged home where she was until last night. She states over the past few days she has had increasing nocturnal dyspnea and even orthopnea. She awoke last night coughing and couldn't catch her breath so pressed her medical alert button and was brought to the ER for evaluation. She was found to be hypoxic on arrival and had persistent coughing but no wheezing. She was given a DuoNeb and had significant improvement in her symptoms. This morning she reports she is feeling much better and breathing has improved. She does not believe she has seen a lung doctor previously but follow with Dr Alvarez for sinus issues. Subjective/Events-last exam Pt reports feeling better today. Cough improved. No new complaints. Now off oxygen. Objective Exam Vital Signs Vital Signs Date Time Temp Pulse Resp B/P (MAP) Pulse Ox O2 Delivery O2 Flow Rate FiO2 06/20/19 08:00 Room Air 06/20/19 08:00 36.7 77 18 137/65 (89) 97 06/20/19 04:30 2.00 Capillary Refill : Less Than 3 SecondsLess Than 3 Seconds General Appearance: No Apparent Distress, WD/WN, Thin Respiratory: Lungs Clear, No Accessory Muscle Use, No Respiratory Distress Cardiovascular: Regular Rate, Rhythm, No Murmur Gastrointestinal: Normal Bowel Sounds, Non Tender, Soft Neurologic/Psychiatric: Alert, Oriented x3 Results/Procedures Lab Patient resulted labs reviewed. Imaging: Reviewed Imaging Report Assessment/Plan Assessment and Plan Assess & Plan/Chief Complaint COPD Exacerbation Chronic Sinusitis Persistent cough Consult pulm Continue steroids, advair, singulair, MAT protocol Tessalon added for cough pending pertussis Echo pending HTN Continue home meds Hold lisinopril in case causing cough DVT ppx: Lovenox Diagnosis/Problems Diagnosis/Problems (1) COPD exacerbation Status: Acute (2) Essential (primary) hypertension (3) Hypoxia Status: Acute Clinical Quality Measures DVT/VTE Risk/Contraindication: Risk Factor Score Per Nursin RFS Level Per Nursing on Admit: 4+=Very High VERONICA MANE MD Jun 20, 2019 11:14 POS
[2019-06-20] MEDS ORDERED: ENOXAPARIN 40 MG/0.4 ML (LOVENOX) SYR SQ SCH (11:15)
[2019-06-20] MEDS ORDERED: VIT1CAPS44 PO (11:21)
[2019-06-20] MEDS: ENOXAPARIN 30 MG/0.3 ML (LOVENOX) SYR SC SCH (12:00)
--- NOTE | 2019-06-20 12:28 | NUR ---
SPOKE WITH PT (SHE HAD A MED LIST THAT IS ON HER FILE) WELL CALLING [facility] AND [employer] [facility] TO COMPLETE THE MED REC. PT WAS ABLE TO TELL ME HOW/WHEN SHE TAKES EACH MED (THESE MATCHED WITH HER LIST WELL THE DIRECTIONS FOR DILLIONS AND MAILORDER) PT SAYS SHE IS OUT OF LISINOPRIL AND SIMVASTATIN HOWEVER SHE HAS NOT CONTACTED HER MAIL ORDER PHARMACY TO GET THEM REFILLED. THE FOLLOWING DATES ARE FROM [facility] AND [employer]: 01-25-2019 SIMVASTATIN #90/90DS 02-10-2019 LISINOPRIL #90/90DS 04-19-2019 ATENOLOL #90/90DS 04-21-2019 ADVAIR #3/90DS 05-16-2019 PROTONIX #90/90DS 05-18-2019 MONTELUKAST #30/30DS 05-29-2019 COMBIVENT #/DS OTC MEDS: ASPIRIN ZYRTEC FLONASE MTV PRESERVISION VITAMINS SALINE NASAL SPRAY
--- NOTE | 2019-06-20 13:46 | Physical Therapy Evaluation ---
PT Evaluation-General Medical Diagnosis Admission Date Jun 19, 2019 at 05:49 Medical Diagnosis: COPD exacerbation, hypoxia Onset Date: Jun 19, 2019 Therapy Diagnosis Therapy Diagnosis: weakness Height/Weight Height (Feet): 5 Height (Inches): 5.00 Weight (Pounds): 119 Weight (Ounces): 9.0 Precautions Precautions/Isolations: Standard Precautions Weight Bear Status Right Lower Extremity: Right Weight Bearing/Tolerated Left Lower Extremity: Left Weight Bearing/Tolerated Referral Physician: Timoteo Reason for Referral: Evaluation/Treatment Medical History Pertinent Medical History: CAD, CVA, HTN, [place] Current History EMS secondary to persistent cough and SOA for 1 week Reviewed History: Yes Social History Home: Single Level Current Living Status: Alone Entry Into Home: Ramp Prior Prior Level of Function SCALE: Activities may be completed with or without assistive devices. 8-Spqqywlwzw-hftjbmd completes the activity by him/herself with no assistance from a helper. 5-Set-up or Clean-up Assistance-helper sets up or cleans up; patient completes activity. Sibley assists only prior to or following the activity. 4-Supervision or Touching Assistance-helper provides verbal cues and/or touching/steadying and/or contact guard assistance as patient completes activity. Assistance may be provided throughout the activity or intermittently. 3-Partial/Moderate Assistance-helper does LESS THAN HALF the effort. Sibley lifts, holds or supports trunk or limbs, but provides less than half the effort. 2-Substantial/Maximal Assistance-helper does MORE THAN HALF the effort. Sibley lifts or holds trunk or limbs and provides more than half the effort. 7-Kmrgdkyom-luwqcc does ALL the effort. Patient does none of the effort to complete the activity. Or, the assistance of 2 or more helpers is required for the patient to complete the activity. If activity was not attempted, code reason: 7-Patient Refused. 9-Not Applicable-not attempted and the patient did not perform the activity before the current illness, exacerbation or injury. 10-Not Attempted due to Environmental Limitations-(lack of equipment, weather restraints, etc.). 88-Not Attempted due to Medical Conditions or Safety Concerns. Bed Mobility: 6 Transfers (B,C,W/C): 6 Gait: 6 Stairs: 6 Indoor Mobility (Ambulation): Independent Stairs: Independent Prior Devices Use: Other-see list below Prior Device Use: cane PT Evaluation-Current Subjective Patient agrees to PT. Reports no pain or SOB at this time or during tx. Reports independence at home. Nurse states patient has been up in room independently. Pain Numeric Pain Scale: 0-No Pain Location: No Pain Reported Objective Patient Orientation: Normal For Age ROM/Strength ROM Lower Extremities WFL Strength Lower Extremities Grossly 4/5 bilaterally Integumentary/Posture Integumentary See nursing notes Bowel Incontinence: No Bladder Incontinence: No Posture WFL Neuromuscular (Tone, Coordination, Reflexes) Grossly intact Sensory Vision: Wears Glasses Hearing: Functional Transfers Roll Left to Right (QC): 6 Sit to Lying (QC): 6 Lying to Sitting/Side of Bed(Q: 6 Sit to Stand (QC): 6 Chair/Ola-bm-Fblsb Xfer(QC): 6 Car Transfer (QC): 10 Gait Does the Patient Walk?: Yes Mode of Locomotion: Walk Anticipated Mode of Locomotion: Walk Walk 10 feet (QC): 6 Walk 50 ft with 2 Turns(QC): 6 Walk 150 ft (QC): 6 Walking 10ft/uneven surface-QC: 88 Distance: 400' Gait Assistive Device: Cane Single Point Comments/Gait Description Independent; normal pace and pattern Wheelchair Training Does the Pt Use a Wheelchair?: No Wheel 50 ft with 2 turns (QC): 9 Wheel 150 ft (QC): 9 Type of Wheelchair: Manual Stairs 1 Step (curb) (QC): 88 4 Steps (QC): 9 12 Steps (QC): 9 Balance Sitting Static: Normal Sitting Dynamic: Normal Standing Static: Normal Standing Dynamic: Normal Picking up an Object (QC): 6 Assessment/Needs Patient independent in all bed mobility, standing, and ambulation. Ambulated 400' with SPC independently without difficulty at normal pace and pattern. Patient able to sweet pickle maker objects from floor without difficulty. Patient returned to bed upon conclusion of treatment. At this time, patient does not required skilled physical therapy as she is independent in ambulation and functional mobility. 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 Operator Goals Hardboard Press Operator Goals PT Hardboard Press Operator Goals Time Frame: Jun 20, 2019 Roll Left & Right (QC): 6 Sit to Lying (QC): 6 Lying-Sitting on Side/Bed(QC): 6 Sit to Stand (QC): 6 Chair/Vqp-uw-Rjxhn Xfer(QC): 6 Toilet Transfer (QC): 6 Car Transfer (QC): 6 Does the Patient Walk: Yes Walk 10 feet (QC): 6 Walk 50ft with 2 Turns (QC): 6 Walk 150 ft (QC): 6 Walking 10ft on Uneven Surface: 6 1 Step (curb) (QC): 6 4 Steps (QC): 9 12 Steps (QC): 9 Picking up an Object (QC): 6 Does the Pt use WC or Scooter?: No Type: N/A Type: N/A PT Plan Treatment/Plan Treatment Plan: Discontinue PT Treatment Duration: Jun 20, 2019 Frequency: 1 time per week Estimated Hrs Per Day: .25 hour per day Patient and/or Family Agrees t: Yes Time/GCodes Time In: 1315 Time Out: 1326 Total Billed Treatment Time: 11 Total Billed Treatment 1 visit EVLowC 11min KATIA MANUEL PT Jun 20, 2019 13:45 POS
[2019-06-20] MEDS: MONTELUKAST 10 MG (SINGULAIR) TAB PO SCH (20:19)
[2019-06-20] MEDS: SIMvastatin 40 MG (ZOCOR) TAB PO SCH (20:19)
[2019-06-21 03:10] VITALS: BP 148/71
[2019-06-21] MEDS: RT-ALBUTEROL/IPRATROPIUM 3 ML (DUONEB) VIAL IH SCH ×7 (03:14→23:32)
[2019-06-21] MEDS: predniSONE 20 MG TAB PO SCH (06:13)
[2019-06-21 08:00] VITALS: BP 175/96
[2019-06-21] MEDS: ATENOLOL 50 MG (TENORMIN) TAB PO SCH (10:25)
[2019-06-21] MEDS: HYDROCHLOROTHIAZIDE 12.5 MG (HCTZ) CAP PO SCH (10:25)
[2019-06-21] MEDS: ASPIRIN 81 MG CHEW (CHILDREN'S ASA) PO SCH (10:25)
--- NOTE | 2019-06-21 10:51 | NUR ---
DISCHARGE PLANNING: Met with patient to [facility] for discharge. Upon entering the room she had an terrible coughing fit that seems to last forever. She reports that she doesn't think that she can go home by herself even with [facility]. She does think that she could go to [facility]. Spoke with Dr. Mahmood about this.
[2019-06-21 12:00] VITALS: BP 166/84
[2019-06-21] MEDS: ENOXAPARIN 30 MG/0.3 ML (LOVENOX) SYR SC SCH (12:27)
[2019-06-21] MEDS: guaiFENesin/CODEINE (ROBITUSSIN AC) 10ML UDC PO PRN (12:34)
[2019-06-21] MEDS ORDERED: guaiFENesin (MUCINEX) 600 MG TAB PO NR (12:45)
--- NOTE | 2019-06-21 12:54 | Progress Note - Hospitalist ---
Subjective HPI/CC On Admission Date Seen by Provider: Jun 21, 2019 Time Seen by Provider: 12:51 Pt is an 89yoCF known to me from previous admissions who presented to the ER due to SOB. She states it was similar to her previous episodes of bronchitis. She was admitted a few weeks ago and responded well to steroids. She discharged to a SNF and did well and was discharged home where she was until last night. She states over the past few days she has had increasing nocturnal dyspnea and even orthopnea. She awoke last night coughing and couldn't catch her breath so pressed her medical alert button and was brought to the ER for evaluation. She was found to be hypoxic on arrival and had persistent coughing but no wheezing. She was given a DuoNeb and had significant improvement in her symptoms. This morning she reports she is feeling much better and breathing has improved. She does not believe she has seen a lung doctor previously but follow with Dr Alvarez for sinus issues. Subjective/Events-last exam Pt reports persistent coughing. Feels like she has mucus to get out but she can't.Requests mucinex. Objective Exam Vital Signs Vital Signs Date Time Temp Pulse Resp B/P (MAP) Pulse Ox O2 Delivery O2 Flow Rate FiO2 06/21/19 10:39 92 Room Air 06/21/19 08:00 37.4 128 24 175/96 (122) 06/20/19 04:30 2.00 Capillary Refill : Less Than 3 SecondsLess Than 3 Seconds General Appearance: No Apparent Distress, WD/WN Respiratory: Lungs Clear, No Accessory Muscle Use, No Respiratory Distress Cardiovascular: Regular Rate, Rhythm, No Murmur Gastrointestinal: Normal Bowel Sounds, Non Tender, Soft Neurologic/Psychiatric: Alert, Oriented x3 Results/Procedures Lab Patient resulted labs reviewed. Imaging: Reviewed Imaging Report Assessment/Plan Assessment and Plan Assess & Plan/Chief Complaint COPD Exacerbation Chronic Sinusitis Persistent cough Consult pulm, appreciate recs Continue steroids, advair, singulair, MAT protocol Tessalon and honey for cough pending pertussis Echo shows grade 1 diastolic dysfunction with preserved EF HTN Continue home meds Hold lisinopril in case causing cough DVT ppx: Lovenox Diagnosis/Problems Diagnosis/Problems (1) COPD exacerbation Status: Acute (2) Essential (primary) hypertension (3) Hypoxia Status: Acute Clinical Quality Measures DVT/VTE Risk/Contraindication: Risk Factor Score Per Nursin RFS Level Per Nursing on Admit: 4+=Very High VERONICA MANE MD Jun 21, 2019 12:54 POS
--- NOTE | 2019-06-21 15:18 | Pulmonary Consultation ---
History of Present Illness History of Present Illness Date Seen by Provider: Jun 20, 2019 (Late Note) Time Seen by Provider: 15:15 Date of Admission Allergies and Home Medications Allergies Coded Allergies: No Known Drug Allergies (Unverified , 06/19/19) Home Medications Albuterol/Ipratropium 4 Gm Aero, 1 PUFF IH Q6H PRN for SHORTNESS OF BREATH, (Reported) Aspirin 81 Mg Tablet.dr, 81 MG PO HS, (Reported) Atenolol 50 Mg Tablet, 50 MG PO HS, (Reported) Cetirizine HCl 10 Mg Capsule, 10 MG PO HS, (Reported) Fluticasone Propionate 9.9 Ml [place].susp, 1 SPRAY NS DAILY PRN for CONGESTION, (Reported) Fluticasone/Salmeterol 1 Each Blst.w.dev, 1 PUFF IH BID, (Reported) Lisinopril 10 Mg Tablet, 10 MG PO HS, (Reported) LAST FILLED 02-10-2019 #90 Montelukast Sodium 10 Mg Tablet, 10 MG PO HS, (Reported) Multivitamin 1 Each Tablet, 1 EACH PO DAILY, (Reported) Pantoprazole Sodium 40 Mg Tablet.dr, 40 MG PO DAILY, (Reported) Simvastatin 40 Mg Tablet, 40 MG PO HS, (Reported) LAST FILLED 01-25-2019 #90 Sodium Chloride 30 Ml [place], 1 SPR NSEACH BID PRN for DRY NOSE, (Reported) Vit C/E/Zn/Coppr/Lutein/Zeaxan 1 Each Capsule, 1 EACH PO BID, (Reported) Past Wzjinxf-Gioigc-Ejdpoz Hx Past Med/Social Hx: Reviewed Nursing Past Med/Soc Hx Patient Social History Alcohol Use: Denies Use Recreational Drug Use: No Smoking Status: Never a Smoker 2nd Hand Smoke Exposure: No Recent Foreign Travel: No Contact w/Someone Who Travel: No Recent Infectious Disease Expo: No Recent Hopitalizations: No Physical Abuse: No Sexual Abuse: No Mistreated: No Fear: No Immunizations Up To Date Tetanus Booster (TDap): More than 5yrs PED Vaccines UTD: Yes Date of Pneumonia Vaccine: Apr 19, 2016 Date of Influenza Vaccine: May 10, 2019 Seasonal Allergies Seasonal Allergies: No Past Medical History Surgeries: Yes Cardiac, Gallbladder, Hysterectomy Respiratory: No Currently Using CPAP: No Currently Using BIPAP: No Cardiac: Yes Coronary Artery Disease, Heart Attack, Hypertension 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 PT REFUSED EGD.) Gastrointestinal Bleed Musculoskeletal: No Endocrine: No HEENT: No Cancer: No Psychosocial: No Integumentary: No Blood Disorders: No Family Medical History Congenital heart disease 19 FATHER G8 BROTHER FH: breast cancer G8 SISTER Review of Systems Time Seen by Provider: 15:18 Sepsis Event Evaluation Height, Weight, BMI Height: 5'5.00" Weight: 119lbs. 9.0oz. 54.927651oa; 19.33 BMI Method:Stated Exam Exam Vital Signs Date Time Temp Pulse Resp B/P (MAP) Pulse Ox O2 Delivery O2 Flow Rate FiO2 06/21/19 15:07 94 Room Air 06/21/19 12:00 37.2 100 20 166/84 (111) 95 Room Air 06/21/19 10:39 92 Room Air 06/21/19 09:00 96 Room Air 06/21/19 08:00 37.4 128 24 175/96 (122) 96 Room Air 06/21/19 07:25 95 Room Air 06/21/19 03:14 97 Room Air 06/21/19 03:10 36.7 81 20 148/71 (96) 97 Room Air 06/20/19 23:48 36.6 97 20 146/72 (96) 94 Room Air 06/20/19 23:13 94 Room Air 06/20/19 20:00 Room Air 06/20/19 19:51 94 Room Air 06/20/19 19:35 36.4 87 20 135/64 (87) 96 Room Air 06/20/19 15:55 36.6 83 20 131/68 (89) 95 Room Air 06/20/19 15:36 95 Room Air I & O 06/21/19 07:00 Intake Total 1130 ml Output Total 200 ml Balance 930 ml Height & Weight Height: 5'5.00" Weight: 119lbs. 9.0oz. 54.522959zd; 19.33 BMI Method:Stated General Appearance: No Apparent Distress, WD/WN HEENT: PERRL/EOMI, Normal ENT Inspection Neck: Normal Inspection, Supple Respiratory: Lungs Clear, No Accessory Muscle Use, No Respiratory Distress Cardiovascular: Regular Rate, Rhythm, No Murmur Capillary Refill: Less Than 3 Seconds Extremity: Normal Capillary Refill, Normal Inspection, No Pedal Edema Neurologic/Psychiatric: Alert, Oriented x3 Skin: Normal Color, Warm/Dry Assessment/Plan Assessment/Plan COPDAE with hypoxia -02 -SVNS -Prednisone -Will do out pt f/u testing -CXR reviewed IVETTE LYNCH DO Jun 21, 2019 15:18 POS
--- NOTE | 2019-06-21 15:26 | NUR ---
Received order for pulmonary rehab consult. In reviewing patient history there is no qualifying diagnosis at this time for pulmonary rehab.
[2019-06-21 16:06] VITALS: BP 134/64
[2019-06-21 19:46] VITALS: BP 153/70
[2019-06-21] MEDS: ADVAIR HFA 115/21 MCG INHALER 8 GM IH SCH ×3 (19:46→19:52)
[2019-06-21] MEDS ORDERED: RT-ADVAIR HFA 115/21 MCG PER PUFF IH SCH (20:00)
[2019-06-21] MEDS: SIMvastatin 40 MG (ZOCOR) TAB PO SCH (21:38)
[2019-06-21] MEDS: FLUTICASONE NASAL SPRAY (FLONASE) 16 GM BTL NS SCH ×2 (21:38→21:43)
[2019-06-21] MEDS: guaiFENesin (MUCINEX) 600 MG TAB PO SCH (21:39)
[2019-06-21] MEDS: MONTELUKAST 10 MG (SINGULAIR) TAB PO SCH (21:39)
[2019-06-21 23:40] VITALS: BP 158/82
[2019-06-22 03:35] VITALS: BP 164/82
[2019-06-22] MEDS: RT-ALBUTEROL/IPRATROPIUM 3 ML (DUONEB) VIAL IH SCH ×3 (03:48→11:41)
[2019-06-22 05:53] LABS: HEMOGLOBIN 12.2 G/DL (11.5-16.0); MEAN PLATELET VOLUME 11.2 FL (7.4-10.4); RED CELL DISTRIBUTION WIDTH 14.6 % (10.0-14.5); WHITE BLOOD COUNT 19.8 10^3/uL (4.3-11.0)
[2019-06-22 06:16] LABS: CALCIUM 9.4 MG/DL (8.5-10.1); CREATININE SERUM 0.93 MG/DL (0.60-1.30); POTASSIUM 3.6 MMOL/L (3.6-5.0)
[2019-06-22] MEDS: predniSONE 20 MG TAB PO SCH (06:17)
[2019-06-22 08:00] VITALS: BP 166/77
[2019-06-22] MEDS: ADVAIR HFA 115/21 MCG INHALER 8 GM IH SCH (08:15)
[2019-06-22] MEDS: ASPIRIN 81 MG CHEW (CHILDREN'S ASA) PO SCH (08:31)
[2019-06-22] MEDS: FLUTICASONE NASAL SPRAY (FLONASE) 16 GM BTL NS SCH (08:31)
[2019-06-22] MEDS: guaiFENesin (MUCINEX) 600 MG TAB PO SCH (08:32)
[2019-06-22] MEDS: ATENOLOL 50 MG (TENORMIN) TAB PO SCH (08:32)
[2019-06-22] MEDS: HYDROCHLOROTHIAZIDE 12.5 MG (HCTZ) CAP PO SCH (08:32)
[2019-06-22] MEDS ORDERED: LORATADINE (CLARITIN) 10 MG TAB PO SCH (09:00)
--- NOTE | 2019-06-22 09:17 | Discharge Summary ---
Diagnosis/Chief Complaint Date of Admission Jun 19, 2019 at 05:49 Date of Discharge Admission Diagnosis COPD Exacerbation Primary Care Jay Jay Thompson MD Discharge Diagnosis (1) COPD exacerbation Status: Acute (2) Essential (primary) hypertension (3) Hypoxia Status: Acute Discharge Summary Procedures/Consulations Dr Tomas- Bren Discharge Physical Exam Allergies: Coded Allergies: No Known Drug Allergies (Unverified , 06/19/19) Vitals & I&Os Vital Signs Date Time Temp Pulse Resp B/P (MAP) Pulse Ox O2 Delivery O2 Flow Rate FiO2 06/22/19 13:00 37.1 84 18 165/79 94 Room Air 2.00 General Appearance: No Apparent Distress, Chronically ill Respiratory: Lungs Clear, No Accessory Muscle Use, No Respiratory Distress Cardiovascular: Regular Rate, Rhythm, No Murmur Neurologic/Psychiatric: Alert, Oriented x3 Hospital Course Patient is an 89-year-old female who was admitted with an acute exacerbation of chronic bronchitis. She was started on spheroids and scheduled breathing treatments and improved dramatically she did have persistent coughing and she was checked for pertussis that is currently pending at this time. She is to continue on steroids and is being discharged in stable condition to [facility]. She is to follow up with her PCP Dr Thompson in the next week. Labs (last 24 hrs) Microbiology 06/21/19 Gram Stain - Final, Resulted 06/21/19 Sputum Culture - Preliminary, Resulted Usual upper respiratory helena Patient resulted labs reviewed. Pending Labs Imaging: Reviewed Imaging Report Discussion & Recommendations Discharge Planning: >30 minutes discharge planning Discharge Home Medications: Active Scripts Active Prednisone 20 Mg Tab 40 Mg PO DAILY@0700 Tessalon Perles (Benzonatate) 100 Mg Capsule 100 Mg PO TID PRN Reported Preservision Areds 2 Softgel (Vit C/E/Zn/Coppr/Lutein/Zeaxan) 1 Each Capsule 1 Each PO BID Zyrtec (Cetirizine HCl) 10 Mg Capsule 10 Mg PO HS Saline Nasal [place] (Sodium Chloride) 30 Ml [place] 1 Spr NSEACH BID PRN Singulair (Montelukast Sodium) 10 Mg Tablet 10 Mg PO HS Combivent Respimat Inhal [place] (Albuterol/Ipratropium) 4 Gm Aero 1 Puff IH Q6H PRN Flonase Allergy Relief (Fluticasone Propionate) 9.9 Ml [place].susp 1 [place] NS DAILY PRN Multi-Vitamin Daily (Multivitamin) 1 Each Tablet 1 Each PO DAILY Pantoprazole Sodium 40 Mg Tablet.dr 40 Mg PO DAILY Aspir 81 (Aspirin) 81 Mg Tablet.dr 81 Mg PO HS Lisinopril 10 Mg Tablet 10 Mg PO HS LAST FILLED 02-10-2019 #90 Advair 250-50 Diskus (Fluticasone/Salmeterol) 1 Each Blst.w.dev 1 Puff IH BID Simvastatin 40 Mg Tablet 40 Mg PO HS LAST FILLED 01-25-2019 #90 Atenolol 50 Mg Tablet 50 Mg PO HS Instructions to patient/family Please see electronic discharge instructions given to patient. Clinical Quality Measures DVT/VTE Risk/Contraindication: Risk Factor Score Per Nursin RFS Level Per Nursing on Admit: 4+=Very High Copy Copies To 1: JAY JAY THOMPSON MD, KATELYN M MD Jun 22, 2019 09:17 POS
[2019-06-22] MEDS ORDERED: BENZ100C18 PO (09:19)
[2019-06-22] MEDS ORDERED: PRD20T PO (09:19)
--- NOTE | 2019-06-22 09:21 | Discharge Inst-Skilled Nursing ---
Discharge Inst-Skilled NF Consult/Follow Up/Orders Follow Up Appt.: Dr Penn [address] Tomas 2 weeks. Skilled NF Admit to: [facility] Certification (SNF) I certify that SNF services are required to be given on an inpatient basis because of the above named patient's need for half-way care on a continuing basis for the conditions(s) for which he/she was receiving inpatient hospital services prior to his/her transfer to the SNF. Half-Way Facility Order: Nursing Services, [employer] Machinist-Evaluate & Treat, Physical Therapy-Evaluate & Treat Oxygen Delivery Method: Room Air Discharge Diet: No Restrictions Daily Activity as Tolerated: Yes New & Resume Previous Orders Veronica Mahmood Jun 22, 2019 09:20 VERONICA MAHMOOD MD Jun 22, 2019 09:21 POS
--- NOTE | 2019-06-22 10:27 | NUR ---
FINAL DISCHARGE PLAN: Patient is discharged today to new SKILLED placement at [facility]. Unfinalized orders have been sent...finalized will be sent once completed. Pick-up time at 13:00. Facility will be bringing clothes. sex worker or escort will be completing Care Assessment.
[2019-06-22] MEDS: guaiFENesin/CODEINE (ROBITUSSIN AC) 10ML UDC PO PRN (10:50)
[2019-06-22] MEDS ORDERED: ENOXAPARIN 40 MG/0.4 ML (LOVENOX) SYR SC SCH (11:30)
[2019-06-22 12:00] VITALS: BP 165/79
[2019-06-22 13:00] VITALS: BP 165/79
--- NOTE | 2019-07-06 11:34 | NUR ---
Received order the beginning of June for pt to go through pulmonary rehab; left several messages on machine. Called again today, pt stated that she does not have breathing issues and has never been told by physician that she has COPD. I explained what pulmonary rehab was for, but she let me know at this time she does not require services. Pt declined pulmonary rehab at this time.
--- OUTSIDE RECORDS SUMMARY | 2019-07-14 05:46 | XMS REPORT | CCD ---
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 History Of Immunizations (C-CDA) Vaccine Series # Dosage Date Administered By Drug Precision Inspector Lot Number CVX Code Refusal Reason This section is an empty immunization se ction. There are multiple immunizations systems within the [facility] ([facility]). All immunizations and exemptions/refusals for this patient that are stored in the [facility]'s Clinical Data Repository (CDR) are included here, but this list is empty. Medications (C-CDA) Product Name RouteOfAdministra tion Timing Qty Order Date Order Qty Status Start Date Expiration Date Last Dispensed Date Discontinued Date Source Dosage BENZONATATE (BENZONATATE), 100MG, CAPSUL E, ORAL, ZYDUS PHARMACEU, 100 ea. BOTTLE [id number] 24 Active [id number] [facility] Facility [address] [place] [address] Formulary Units PREDNISONE (prednisone), 20 MG, TABLET, ORAL, [employer], 500 ea. BOTTLE [id number] 4 Active [id number] [facility] [address] [place] [address] Formulary Units AMOXICILLIN (AMOXICILLIN), 500 MG, CAPSULE, ORAL, SAND OZ, 500 ea. BOTTLE [id number] 14 Active [id number] [facility] [address] [place] [address] Formulary Units COMBIVENT RESPIMAT (IPRATROPIUM/ALBUTERO L SULFATE), 20-100 MCG, MIST INHAL, INHALATION, BOEHRINGER ING., 4 g AER W/ADAP [id number] 4 Active [id number] [facility] T [facility] Facility [address] [place] [address] Formulary Units COMBIVENT RESPIMAT (IPRATROPIUM/ALBUTERO L SULFATE), 20-100 MCG, MIST INHAL, INHALATION, BOEHRINGER ING., 4 g AER W/ADAP [id number] 02 4 Active [id number] [facility] [address] Formulary Units MONTELUKAST SODIUM (MONTELUKAST SODIUM), 10 MG, TABLET, ORAL, CAMBER PHARMACE, 1000 ea. BOTTLE [id number] 30 Active [id number] [facility] ty [address] [place] [address] Formulary Units PREDNISONE (PREDNISONE), 20MG, TABLET, ORAL, SUGAR LA BS., 500 ea. BOTTLE [id number] 10 Active [id number] [facility] [address] [place] [address] Formulary Units AMOXICILLIN (AMOXICILLIN), 500 MG, CAPSULE, ORAL, SAND OZ, 500 ea. BOTTLE [id number] 21 Active [id number] [facility] [address] [place] [address] Formulary Units DOXYCYCLINE HYCLATE (DOXYCYCLINE HYCLATE ), 100 MG, CAPSULE, ORAL, [facility] 500 ea. BOTTLE [id number] 28 Acti ve [id number] Pharmacy Data Transaction Se rvice Facility [address] Formulary Units FLUCONAZOLE (FLUCONAZOLE), 150MG, TABLET , ORAL, [employer]ARMA, 1 ea. BLIST PACK [id number] 4 Active [id number] [facility] [address] [place] [address] Formulary Units BENZONATATE (benzonatate), 200 MG, CAPSU LE, ORAL, [employer] PHARMA, 100 ea. BOTTLE [id number] 90 Active [id number] 201 14622 [facility] [address] [place] [address] Formulary Units ATENOLOL (ATENOLOL), 50MG, TABLET, ORAL, [employer], 1000 ea. BOTTLE [id number] 90 Active [id number] [facility] [address] [place] [address] Formulary Units PANTOPRAZOLE SODIUM (PANTOPRAZOLE SODIUM ), 40 MG, TABLET DR, ORAL, TORRENT PHARMAC, 90 ea. BOTTLE [id number] 90 Active [id number] Pharmacy Data Transaction Se rv[facility] Facility [address] [place] [address] Formulary Units SUCRALFATE (sucralfate), 1 G, TABLET, ORAL, [employer] [facility] 100 ea. BOTTLE [id number] 360 Active 20181203 [facility] Facility [address] [place] [address] Formulary Units MONTELUKAST SODIUM (MONTELUKAST SODIUM), 10 MG, TABLET, ORAL, [employer]ACE, 1000 ea. BOTTLE [id number] 30 Active [id number] [facility] [address] Formulary Units MONTELUKAST SODIUM (MONTELUKAST SODIUM), 10 MG, TABLET, ORAL, [employer] PHARMACE, 1000 ea. BOTTLE [id number] 30 Active [id number] [facility] [address] Formulary Units MONTELUKAST SODIUM (MONTELUKAST SODIUM), 10 MG, TABLET, ORAL, [employer]BER PHARMACE, 1000 ea. BOTTLE [id number] 30 Active [id number] [facility] [address] Formulary Units CETIRIZINE HCL (cetirizine HCl), 10 MG, TABLET, ORAL, MAJOR PHARMACEU, 90 ea. BOTTLE [id number] 90 Active 20181110 Pharm[facility] [address] Formulary Units ADVAIR DISKUS (FLUTICASONE/SALMETEROL), 250-50MCG, DISK W/DEV, INHALATION, GLAXOSMITHKLINE, 60 ea. BLIST PACK [id number] 18 0 Active 20181110 Pharmacy Data T ransaction Service [address] Formulary Units CETIRIZINE HCL (cetirizine HCl), 10 MG, TABLET, ORAL, MAJOR PHARMACEU, 90 ea. BOTTLE [id number] 90 Active 20181110 Pharmacy [facility] Transaction [facility] [address] Formulary Units ADVAIR DISKUS (FLUTICASONE/SALMETEROL), 250-50MCG, DISK W/DEV, INHALATION, GLAXOSMITHKLINE, 60 ea. BLIST PACK [id number] 18 0 Active 20181110 Pharmacy Data T ransaction Service [address] Formulary Units PREDNISONE (PREDNISONE), 20MG, TABLET, ORAL, SUGAR LA BS., 500 ea. BOTTLE [id number] 10 Active [id number] Pharm[facility] [address] Formulary Units ATENOLOL (ATENOLOL), 50MG, TABLET, ORAL, ZYDUS PHARMAC EU, 1000 ea. BOTTLE [id number] 30 Active [id number] [facility] Facility [address] [place] [address] Formulary Units ATENOLOL (ATENOLOL), 50MG, TABLET, ORAL, ZYDUS PHARMAC EU, 1000 ea. BOTTLE [id number] 30 Active [id number] [facility] Facility [address] [place] [address] Formulary Units ATENOLOL (ATENOLOL), 50MG, TABLET, ORAL, ZYDUS PHARMAC EU, 1000 ea. BOTTLE [id number] 30 Active [id number] [facility] Facility [address] [place] [address] Formulary Units SIMVASTATIN (simvastatin), 40 MG, TABLET , ORAL, LUPIN PHARMACEU, 1000 ea. BOTTLE [id number] 90 Active [id number] Pharm[facility] Facility [address] [place] [address] Formulary Units This section includes all outpatient medications ordered within the last 15 months. Problem List (C-CDA) Name Status Onset Date Chronicity Code Source This section is an empty problems section. Procedures (C-CDA) Date/Time Procedure Type Provider Procedure Comment This section is an empty procedures section. Diagnostic tests and laboratory results (C-CDA) Collection Date/Time Order/Alves el Test Result Ref Range Interpretation Source Order Comment Result Comment Result Interpretation Comment Specimen This section is an empty lab results sec tion. This section includes all laboratory results (except microbiology and pathology) for the past 15 months up to a maximum of 50 results panels. Vitals (C-CDA) Collection Date/Time Test Result Site Method Source This section is an empty vitals section This section is an empty vitals section. This section includes information documenting the patient's vital signs for the past 15 months up to a maximum of 50 sets. Height and weight values may have been measured or stated by the patient. History of encounters (C-CDA) Date/Time Encounter Type Reason for Visit Provider Disposition Source This section is an empty appointments/ad missions. This section is an empty appointments/admissions. This section includes appointments/admissions for the past 280 months. Insurance providers (C-CDA) Plan Type Plan Name Group No Source Relation to Subscriber This section is an empty insurance secti on. This section contains current third-libertarian (non-) insurance information as known by the Department of Defense. This information is empty. Social History (C-CDA) Tobacco Table Date/Time Provider Tobacco Use What type of tobacco product? Would you like to quit? Amount of tobacco used per day/duration? This section is an empty social history section. No Information Plan of Care (C-CDA) This section is an empty plan of care section. No Information Instructions (C-CDA) This section is an empty Instructions section. No Information Functional Status (C-CDA) This section is an empty functional status section. No Information
--- OUTSIDE RECORDS SUMMARY | 2019-07-14 05:48 | XMS REPORT | Continuity of Care Document ---
Author Organization Unknown Address Unknown Phone Unavailable Allergies Active Description Code Type Severity Reaction Onset Reported/Identified Relationship to Patient Clinical Status Yes No Known Drug Allergies [id number] Drug Allergy Unknown N/A 06/19/2019 Medications There is no data. Problems Date Dx Coded Attending Type Code Diagnosis Diagnosed By 11/28/2014 Ot 733.02 11/28/2014 Ot V76.12 11/28/2014 Ot V76.12 11/28/2014 Ot V76.12 11/28/2014 Ot 719.45 11/28/2014 Ot 959.6 11/28/2014 Ot E000.8 11/28/2014 Ot E849.0 11/28/2014 Ot E880.9 11/28/2014 Ot 722.52 11/28/2014 Ot 808.2 11/28/2014 Ot E000.8 11/28/2014 Ot E849.0 11/28/2014 Ot E888.9 11/28/2014 JADEN DICKERSON MD Ot V76.12 11/28/2014 JADEN DICKERSON MD Ot 287.5 11/28/2014 JADEN DICKERSON MD Ot V76.12 11/28/2014 Ot 733.02 11/28/2014 Ot V76.12 11/28/2014 Ot V76.12 11/28/2014 Ot V76.12 11/28/2014 Ot 719.45 11/28/2014 Ot 959.6 11/28/2014 Ot E000.8 11/28/2014 Ot E849.0 11/28/2014 Ot E880.9 11/28/2014 Ot 722.52 11/28/2014 Ot 808.2 11/28/2014 Ot E000.8 11/28/2014 Ot E849.0 11/28/2014 Ot E888.9 11/28/2014 JADEN DICKERSON MD Ot V76.12 11/28/2014 JADEN DICKERSON MD Ot 287.5 11/28/2014 JADEN DICKERSON MD Ot V76.12 02/22/2015 DARRIUS TRIPLETT Ot V76.12 03/16/2015 DARRIUS TRIPLETT Ot V76.12 12/02/2015 CAROLA GRAF Ot M47.812 SPONDYLOSIS W/O MYELOPATHY OR RADICULOPA 12/02/2015 CAROLA GRAF Ot S00.01XA ABRASION OF SCALP, INITIAL ENCOUNTER 12/02/2015 CAROLA GRAF Ot S41.101A UNSPECIFIED OPEN WOUND OF RIGHT UPPER AR 12/02/2015 CAROLA GRAF Ot S61.401A UNSPECIFIED OPEN WOUND OF RIGHT HAND, IN 12/02/2015 CAROLA GRAF Ot S61.402A UNSPECIFIED OPEN WOUND OF LEFT HAND, INI 12/02/2015 CAROLA GRAF Ot S81.001A UNSPECIFIED OPEN WOUND, RIGHT KNEE, INIT 12/02/2015 CAROLA GRAF Ot S81.002A UNSPECIFIED OPEN WOUND, LEFT KNEE, INITI 12/02/2015 CAROLA GRAF Ot W01.0XXA FALL SAME LEV FROM SLIP/TRIP W/O STRIKE 12/02/2015 CAROLA GRAF Ot Y92.[address] 12/02/2015 CAROLA GRAF Ot Y99.8 OTHER EXTERNAL CAUSE STATUS 12/02/2015 CAROLA GRAF Ot Z79.82 HALFWAY (CURRENT) USE OF ASPIRIN 12/04/2015 CAROLA GRAF Ot M47.812 SPONDYLOSIS W/O MYELOPATHY OR RADICULOPA 12/04/2015 CAROLA GRAF Ot S00.01XA ABRASION OF SCALP, INITIAL ENCOUNTER 12/04/2015 CAROLA GRAF Ot S41.101A UNSPECIFIED OPEN WOUND OF RIGHT UPPER AR 12/04/2015 CAROLA GRAF Ot S61.401A UNSPECIFIED OPEN WOUND OF RIGHT HAND, IN 12/04/2015 CAROLA GRAF Ot S61.402A UNSPECIFIED OPEN WOUND OF LEFT HAND, INI 12/04/2015 CAROLA GRAF Ot S81.001A UNSPECIFIED OPEN WOUND, RIGHT KNEE, INIT 12/04/2015 CAROLA GRAF Ot S81.002A UNSPECIFIED OPEN WOUND, LEFT KNEE, INITI 12/04/2015 CAROLA GRAF Ot W01.0XXA FALL SAME LEV FROM SLIP/TRIP W/O STRIKE 12/04/2015 CAROLA GRAF Ot Y92.[address] 12/04/2015 CAROLA GRAF Ot Y99.8 OTHER EXTERNAL CAUSE STATUS 12/04/2015 CAROLA GRAF Ot Z79.82 BUSINESS TRANSFORMATION 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 (CURRENT) USE OF ASPIRIN 12/08/2015 CAROLA GRAF Ot M47.812 SPONDYLOSIS W/O MYELOPATHY OR RADICULOPA 12/08/2015 CAROLA GRAF Ot S00.01XA ABRASION OF SCALP, INITIAL ENCOUNTER 12/08/2015 CAROLA GRAF Ot S41.101A UNSPECIFIED OPEN WOUND OF RIGHT UPPER AR 12/08/2015 CAROLA GRAF Ot S61.401A UNSPECIFIED OPEN WOUND OF RIGHT HAND, IN 12/08/2015 CAROLA GRAF Ot S61.402A UNSPECIFIED OPEN WOUND OF LEFT HAND, INI 12/08/2015 CAROLA GRAF Ot S81.001A UNSPECIFIED OPEN WOUND, RIGHT KNEE, INIT 12/08/2015 CAROLA GRAF Ot S81.002A UNSPECIFIED OPEN WOUND, LEFT KNEE, INITI 12/08/2015 CAROLA GRAF Ot W01.0XXA FALL SAME LEV FROM SLIP/TRIP W/O STRIKE 12/08/2015 CAROLA GRAF Ot Y92.[address] 12/08/2015 CAROLA GRAF Ot Y99.8 OTHER EXTERNAL CAUSE STATUS 12/08/2015 CAROLA GRAF Ot Z79.82 BUSINESS TRANSFORMATION ANALYST (CURRENT) USE OF ASPIRIN 12/14/2015 JOYCE KALPAN MD Ot S61.412D LACERATION WITHOUT FOREIGN BODY OF LEFT 12/16/2015 JOYCE KAPLAN MD Ot S61.412D LACERATION WITHOUT FOREIGN BODY OF LEFT 12/18/2015 SABINE FORRESTER DO Ot S61.412D LACERATION WITHOUT FOREIGN BODY OF LEFT 12/20/2015 SABINE FORRESTER DO Ot S61.412D LACERATION WITHOUT FOREIGN BODY OF LEFT 02/18/2016 Ot V76.12 OTH SCREEN MAMMO- MALIGN NEOPLASM OF [place] 02/18/2016 Ot V76.12 OTH SCREEN MAMMO- MALIGN NEOPLASM OF [place] 02/18/2016 Ot 719.45 [place] NT PAIN-PELVIS 02/18/2016 Ot 959.6 HIP THIGH INJURY NOS 02/18/2016 Ot E000.8 OTH ER EXTERNAL CAUSE STATUS 02/18/2016 Ot E849.0 ACC IDENT IN HOME 02/18/2016 Ot 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 02/18/2016 Ot 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 02/18/2016 Ot 808.2 FRAC TURE OF PUBIS- CLOSED 02/18/2016 Ot E000.8 OTH ER EXTERNAL CAUSE STATUS 02/18/2016 Ot E849.0 ACC IDENT IN HOME 02/18/2016 Ot 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 NOS 02/18/2016 JAYLA ROCK, JADEN Mcgrath Ot V76.12 OTH SCREEN MAMMO-MALIGN NEOPLASM OF [place] 02/18/2016 JAYLA ROCK, JADEN Mcgrath Ot 287.5 THROMBOCYTOPENIA NOS 02/18/2016 JAYLA ROCK, JADEN Mcgrath Ot V76.12 OTH SCREEN MAMMO-MALIGN NEOPLASM OF [place] 02/18/2016 DARRIUS TRIPLETT Ot V76.12 OTH SCREEN MAMMO-MALIGN NEOPLASM OF [place] 02/19/2016 GILLIAN CUNNINGHAM CHEMICAL ANALYTICAL SAMPLER Ot R10.31 RIGHT LOWER QUADRANT PAIN 02/19/2016 GILLIAN CUNNINGHAM CHEMICAL ANALYTICAL SAMPLER Ot R10.84 GENERALIZED ABDOMINAL PAIN 03/11/2016 GILLIAN CUNNINGHAM CHEMICAL ANALYTICAL SAMPLER Ot R10.31 RIGHT LOWER QUADRANT PAIN 03/11/2016 GILLIAN CUNNINGHAM CHEMICAL ANALYTICAL SAMPLER Ot R10.84 GENERALIZED ABDOMINAL PAIN 03/21/2016 GILLIAN CUNNINGHAM CHEMICAL ANALYTICAL SAMPLER Ot R10.31 RIGHT LOWER QUADRANT PAIN 03/21/2016 GILLIAN CUNNINGHAM CHEMICAL ANALYTICAL SAMPLER Ot R10.84 GENERALIZED ABDOMINAL PAIN 05/07/2016 Ot V76.12 OTH SCREEN MAMMO- MALIGN NEOPLASM OF [place] 05/07/2016 Ot V76.12 OTH SCREEN MAMMO- MALIGN NEOPLASM OF [place] 05/07/2016 Ot 719.45 [place] NT PAIN-PELVIS 05/07/2016 Ot 959.6 HIP THIGH INJURY NOS 05/07/2016 Ot E000.8 OTH ER EXTERNAL CAUSE STATUS 05/07/2016 Ot E849.0 ACC IDENT IN HOME 05/07/2016 Ot 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 05/07/2016 Ot 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 05/07/2016 Ot 808.2 FRAC TURE OF PUBIS- CLOSED 05/07/2016 Ot E000.8 OTH ER EXTERNAL CAUSE STATUS 05/07/2016 Ot E849.0 ACC IDENT IN HOME 05/07/2016 Ot 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 NOS 05/07/2016 JADEN DICKERSON MD Ot V76.12 OTH SCREEN MAMMO-MALIGN NEOPLASM OF [place] 05/07/2016 JADEN DICKERSON MD Ot 287.5 THROMBOCYTOPENIA NOS 05/07/2016 JADEN DICKERSON MD Ot V76.12 OTH SCREEN MAMMO-MALIGN NEOPLASM OF [place] 05/07/2016 DARRIUS TRIPLETTP Ot V76.12 OTH SCREEN MAMMO-MALIGN NEOPLASM OF [place] 05/07/2016 GILLIAN CUNNINGHAM CHEMICAL ANALYTICAL SAMPLER Ot R10.31 RIGHT LOWER QUADRANT PAIN 05/07/2016 GILLIAN CUNNINGHAM CHEMICAL ANALYTICAL SAMPLER Ot R10.84 GENERALIZED ABDOMINAL PAIN 05/07/2016 IVETTE TORRES MD Ot Z12.31 ENCNTR SCREEN MAMMOGRAM FOR MALIGNANT NE 05/07/2016 IVETTE TORRES MD Ot Z12.31 ENCNTR SCREEN MAMMOGRAM FOR MALIGNANT NE 05/08/2016 IVETTE TORRES MD Ot Z12.31 ENCNTR SCREEN MAMMOGRAM FOR MALIGNANT NE 05/13/2016 IVETTE TORRES MD Ot Z12.31 ENCNTR SCREEN MAMMOGRAM FOR MALIGNANT NE 05/16/2016 IVETTE TORRES MD Ot Z12.31 ENCNTR SCREEN MAMMOGRAM FOR MALIGNANT NE 05/30/2016 Ot V76.12 OTH SCREEN MAMMO- MALIGN NEOPLASM OF [place] 05/30/2016 Ot V76.12 OTH SCREEN MAMMO- MALIGN NEOPLASM OF [place] 05/30/2016 Ot 719.45 [place] NT PAIN-PELVIS 05/30/2016 Ot 959.6 HIP THIGH INJURY NOS 05/30/2016 Ot E000.8 OTH ER EXTERNAL CAUSE STATUS 05/30/2016 Ot E849.0 ACC IDENT IN HOME 05/30/2016 Ot 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 05/30/2016 Ot 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 05/30/2016 Ot 808.2 FRAC TURE OF PUBIS- CLOSED 05/30/2016 Ot E000.8 OTH ER EXTERNAL CAUSE STATUS 05/30/2016 Ot E849.0 ACC IDENT IN HOME 05/30/2016 Ot 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 NOS 05/30/2016 JAYLA ROCK, JADEN Mcgrath Ot V76.12 OTH SCREEN MAMMO-MALIGN NEOPLASM OF [place] 05/30/2016 JAYLA ROCK, JADEN Mcgrath Ot 287.5 THROMBOCYTOPENIA NOS 05/30/2016 JAYLA ROCK, JADEN Mcgrath Ot V76.12 OTH SCREEN MAMMO-MALIGN NEOPLASM OF [place] 05/30/2016 DARRIUS TRIPLETTP Ot V76.12 OTH SCREEN MAMMO-MALIGN NEOPLASM OF [place] 05/30/2016 GILLIAN CUNNINGHAM CHEMICAL ANALYTICAL SAMPLER Ot R10.31 RIGHT LOWER QUADRANT PAIN 05/30/2016 GILLIAN CUNNINGHAM CHEMICAL ANALYTICAL SAMPLER Ot R10.84 GENERALIZED ABDOMINAL PAIN 05/30/2016 MELISSA ROCK, IVETTE Martinez Ot Z12.31 ENCNTR SCREEN MAMMOGRAM FOR MALIGNANT NE 06/06/2016 Ot V76.12 OTH SCREEN MAMMO- MALIGN NEOPLASM OF [place] 06/06/2016 Ot V76.12 OTH SCREEN MAMMO- MALIGN NEOPLASM OF [place] 06/06/2016 Ot 719.45 HAL[place] NT PAIN-PELVIS 06/06/2016 Ot 959.6 HIP THIGH INJURY NOS 06/06/2016 Ot E000.8 OTH ER EXTERNAL CAUSE STATUS 06/06/2016 Ot E849.0 ACC IDENT IN HOME 06/06/2016 Ot 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 06/06/2016 Ot 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 06/06/2016 Ot 808.2 FRAC TURE OF PUBIS- CLOSED 06/06/2016 Ot E000.8 OTH ER EXTERNAL CAUSE STATUS 06/06/2016 Ot E849.0 ACC IDENT IN HOME 06/06/2016 Ot 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 NOS 06/06/2016 JADEN DICKERSON MD Ot V76.12 OTH SCREEN MAMMO-MALIGN NEOPLASM OF [place] 06/06/2016 JADEN DICKERSON MD Ot 287.5 THROMBOCYTOPENIA NOS 06/06/2016 JADEN DICKERSON MD Ot V76.12 OTH SCREEN MAMMO-MALIGN NEOPLASM OF [place] 06/06/2016 DARRIUS TRIPLETT Ot V76.12 OTH SCREEN MAMMO-MALIGN NEOPLASM OF [place] 06/06/2016 GILLIAN CUNNINGHAM CHEMICAL ANALYTICAL SAMPLER Ot R10.31 RIGHT LOWER QUADRANT PAIN 06/06/2016 GILLIAN CUNNINGHAM CHEMICAL ANALYTICAL SAMPLER Ot R10.84 GENERALIZED ABDOMINAL PAIN 06/06/2016 MELISSA ROCK, IVETTE Martinez Ot Z12.31 ENCNTR SCREEN MAMMOGRAM FOR MALIGNANT NE 08/21/2016 Ot V76.12 OTH SCREEN MAMMO- MALIGN NEOPLASM OF [place] 08/21/2016 Ot 719.45 [place] NT PAIN-PELVIS 08/21/2016 Ot 959.6 HIP THIGH INJURY NOS 08/21/2016 Ot E000.8 OTH ER EXTERNAL CAUSE STATUS 08/21/2016 Ot E849.0 ACC IDENT IN HOME 08/21/2016 Ot 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 08/21/2016 Ot 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 08/21/2016 Ot 808.2 FRAC TURE OF PUBIS- CLOSED 08/21/2016 Ot E000.8 OTH ER EXTERNAL CAUSE STATUS 08/21/2016 Ot E849.0 ACC IDENT IN HOME 08/21/2016 Ot 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 NOS 08/21/2016 JADEN DICKERSON MD Ot V76.12 OTH SCREEN MAMMO-MALIGN NEOPLASM OF [place] 08/21/2016 JADEN DICKERSON MD Ot 287.5 THROMBOCYTOPENIA NOS 08/21/2016 JADEN DICKERSON MD Ot V76.12 OTH SCREEN MAMMO-MALIGN NEOPLASM OF [place] 08/21/2016 DARRIUS TRIPLETT Ot V76.12 OTH SCREEN MAMMO-MALIGN NEOPLASM OF [place] 08/21/2016 GILLIAN CUNNINGHAM CHEMICAL ANALYTICAL SAMPLER Ot R10.31 RIGHT LOWER QUADRANT PAIN 08/21/2016 GILLIAN CUNNINGHAM CHEMICAL ANALYTICAL SAMPLER Ot R10.84 GENERALIZED ABDOMINAL PAIN 08/21/2016 MELISSA ROCK, IVETTE Martinez Ot Z12.31 ENCNTR SCREEN MAMMOGRAM FOR MALIGNANT NE 10/01/2016 Ot V76.12 OTH SCREEN MAMMO- MALIGN NEOPLASM OF [place] 10/01/2016 Ot 719.45 HAL[place] NT PAIN-PELVIS 10/01/2016 Ot 959.6 HIP THIGH INJURY NOS 10/01/2016 Ot E000.8 OTH ER EXTERNAL CAUSE STATUS 10/01/2016 Ot E849.0 ACC IDENT IN HOME 10/01/2016 Ot 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 10/01/2016 Ot 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 10/01/2016 Ot 808.2 FRAC TURE OF PUBIS- CLOSED 10/01/2016 Ot E000.8 OTH ER EXTERNAL CAUSE STATUS 10/01/2016 Ot E849.0 ACC IDENT IN HOME 10/01/2016 Ot 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 NOS 10/01/2016 JADEN DICKERSON MD Ot V76.12 OTH SCREEN MAMMO-MALIGN NEOPLASM OF [place] 10/01/2016 JADEN DICKERSON MD Ot 287.5 THROMBOCYTOPENIA NOS 10/01/2016 JADEN DICKERSON MD Ot V76.12 OTH SCREEN MAMMO-MALIGN NEOPLASM OF [place] 10/01/2016 DARRIUS TRIPLETT Ot V76.12 OTH SCREEN MAMMO-MALIGN NEOPLASM OF [place] 10/01/2016 GILLIAN CUNNINGHAM CHEMICAL ANALYTICAL SAMPLER Ot R10.31 RIGHT LOWER QUADRANT PAIN 10/01/2016 GILLIAN CUNNINGHAM CHEMICAL ANALYTICAL SAMPLER Ot R10.84 GENERALIZED ABDOMINAL PAIN 10/01/2016 MELISSA ROCK, IVETTE Martinez Ot Z12.31 ENCNTR SCREEN MAMMOGRAM FOR MALIGNANT NE 05/21/2017 EMILY CAPELLAN CHEMICAL ANALYTICAL SAMPLER Ot Z12.31 ENCNTR SCREEN MAMMOGRAM FOR MALIGNANT NE 05/24/2017 Ot V76.12 OTH SCREEN MAMMO- MALIGN NEOPLASM OF [place] 05/24/2017 Ot 719.45 [place] NT PAIN-PELVIS 05/24/2017 Ot 959.6 HIP THIGH INJURY NOS 05/24/2017 Ot E000.8 OTH ER EXTERNAL CAUSE STATUS 05/24/2017 Ot E849.0 ACC IDENT IN HOME 05/24/2017 Ot 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 05/24/2017 Ot 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 05/24/2017 Ot 808.2 FRAC TURE OF PUBIS- CLOSED 05/24/2017 Ot E000.8 OTH ER EXTERNAL CAUSE STATUS 05/24/2017 Ot E849.0 ACC IDENT IN HOME 05/24/2017 Ot 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 NOS 05/24/2017 JAYLA ROCK, JADEN Mcgrath Ot V76.12 OTH SCREEN MAMMO-MALIGN NEOPLASM OF [place] 05/24/2017 JADEN DICKERSON MD Ot 287.5 THROMBOCYTOPENIA NOS 05/24/2017 JADEN DICKERSON MD Ot V76.12 OTH SCREEN MAMMO-MALIGN NEOPLASM OF [place] 05/24/2017 DARRIUS TRIPLETT Ot V76.12 OTH SCREEN MAMMO-MALIGN NEOPLASM OF [place] 05/24/2017 GILLIAN CUNNINGHAM CHEMICAL ANALYTICAL SAMPLER Ot R10.31 RIGHT LOWER QUADRANT PAIN 05/24/2017 GILLIAN CUNNINGHAM CHEMICAL ANALYTICAL SAMPLER Ot R10.84 GENERALIZED ABDOMINAL PAIN 05/24/2017 MELISSA ROCK, IVETTE Martinez Ot Z12.31 ENCNTR SCREEN MAMMOGRAM FOR MALIGNANT NE 05/24/2017 EMILY CAPELLAN CHEMICAL ANALYTICAL SAMPLER Ot Z12.31 ENCNTR SCREEN MAMMOGRAM FOR MALIGNANT NE 05/24/2017 Ot V76.12 OTH SCREEN MAMMO- MALIGN NEOPLASM OF [place] 05/24/2017 Ot 719.45 [place] NT PAIN-PELVIS 05/24/2017 Ot 959.6 HIP THIGH INJURY NOS 05/24/2017 Ot E000.8 OTH ER EXTERNAL CAUSE STATUS 05/24/2017 Ot E849.0 ACC IDENT IN HOME 05/24/2017 Ot 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 05/24/2017 Ot 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 05/24/2017 Ot 808.2 FRAC TURE OF PUBIS- CLOSED 05/24/2017 Ot E000.8 OTH ER EXTERNAL CAUSE STATUS 05/24/2017 Ot E849.0 ACC IDENT IN HOME 05/24/2017 Ot 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 NOS 05/24/2017 JAYLA ROCK, JADEN Mcgrath Ot V76.12 OTH SCREEN MAMMO-MALIGN NEOPLASM OF [place] 05/24/2017 JAYLA ROCK, JADEN Mcgrath Ot 287.5 THROMBOCYTOPENIA NOS 05/24/2017 JAYLA ROCK, JADEN Mcgrath Ot V76.12 OTH SCREEN MAMMO-MALIGN NEOPLASM OF [place] 05/24/2017 IOANA DARRIUSMARÍA RAHMAN Ot V76.12 OTH SCREEN MAMMO-MALIGN NEOPLASM OF [place] 05/24/2017 GILLIAN CUNNINGHAM CHEMICAL ANALYTICAL SAMPLER Ot R10.31 RIGHT LOWER QUADRANT PAIN 05/24/2017 GILLIAN CUNNINGHAM CHEMICAL ANALYTICAL SAMPLER Ot R10.84 GENERALIZED ABDOMINAL PAIN 05/24/2017 MELISSA ROCK, IVETTE Martinez Ot Z12.31 ENCNTR SCREEN MAMMOGRAM FOR MALIGNANT NE 05/24/2017 EMILY CAPELLAN CHEMICAL ANALYTICAL SAMPLER Ot Z12.31 ENCNTR SCREEN MAMMOGRAM FOR MALIGNANT NE 05/24/2017 EMILY CAPELLAN CHEMICAL ANALYTICAL SAMPLER Ot Z12.31 ENCNTR SCREEN MAMMOGRAM FOR MALIGNANT NE 05/25/2017 GUILLE ALVARADO DO Ot I10 ESSENTIAL (PRIMARY) HYPERTENSION 05/25/2017 GUILLE ALVARADO DO Ot I25.2 OLD MYOCARDIAL INFARCTION 05/25/2017 GUILLE ALVARADO DO Ot K92.2 GASTROINTESTINAL HEMORRHAGE, UNSPECIFIED 05/25/2017 GUILLE ALVARADO DO Ot Z79.02 BUSINESS TRANSFORMATION ANALYST (CURRENT) USE OF ANTITHROMBOTI 05/25/2017 GUILLE ALVARADO DO Ot Z79.82 BUSINESS TRANSFORMATION ANALYST (CURRENT) USE OF ASPIRIN 05/25/2017 CARRILLO ALVARADO DOI Ot Z79.89 9 OTHER BUSINESS TRANSFORMATION ANALYST (CURRENT) DRUG THERAPY 05/25/2017 GUILLE ALVARADO DO Ot Z86.73 PRSNL HX OF TIA (TIA), AND CEREB INFRC W 05/25/2017 CHRISTIANO VIZCARRA GUILLE Ot I10 ESSENTIAL (PRIMARY) HYPERTENSION 05/25/2017 CARRILLO ALVARADO DOI Ot 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 OLD MYOCARDIAL INFARCTION 05/25/2017 GUILLE ALVARADO DO Ot K92.2 GASTROINTESTINAL HEMORRHAGE, UNSPECIFIED 05/25/2017 GUILLE ALVARADO DO Ot Z79.02 HALFWAY (CURRENT) USE OF ANTITHROMBOTI 05/25/2017 GUILLE ALVARADO DO Ot Z79.82 BUSINESS TRANSFORMATION ANALYST (CURRENT) USE OF ASPIRIN 05/25/2017 CARRILLO ALVARADO DOI Ot Z79.89 9 OTHER HALFWAY (CURRENT) DRUG THERAPY 05/25/2017 GUILLE ALVARADO DO Ot Z86.73 PRSNL HX OF TIA (TIA), AND CEREB INFRC W 05/29/2017 Ot V76.12 OTH SCREEN MAMMO- MALIGN NEOPLASM OF [place] 05/29/2017 Ot 719.45 [place] NT PAIN-PELVIS 05/29/2017 Ot 959.6 HIP THIGH INJURY NOS 05/29/2017 Ot E000.8 OTH ER EXTERNAL CAUSE STATUS 05/29/2017 Ot E849.0 ACC IDENT IN HOME 05/29/2017 Ot 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 05/29/2017 Ot 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 05/29/2017 Ot 808.2 FRAC TURE OF PUBIS- CLOSED 05/29/2017 Ot E000.8 OTH ER EXTERNAL CAUSE STATUS 05/29/2017 Ot E849.0 ACC IDENT IN HOME 05/29/2017 Ot 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 NOS 05/29/2017 JADEN DICKERSON MD Ot V76.12 OTH SCREEN MAMMO-MALIGN NEOPLASM OF [place] 05/29/2017 JADEN DICKERSON MD Ot 287.5 THROMBOCYTOPENIA NOS 05/29/2017 JADEN DICKERSON MD Ot V76.12 OTH SCREEN MAMMO-MALIGN NEOPLASM OF [place] 05/29/2017 DARRIUS TRIPLETT Ot V76.12 OTH SCREEN MAMMO-MALIGN NEOPLASM OF [place] 05/29/2017 GILLIAN CUNNINGHAM CHEMICAL ANALYTICAL SAMPLER Ot R10.31 RIGHT LOWER QUADRANT PAIN 05/29/2017 GILLIAN CUNNINGHAM CHEMICAL ANALYTICAL SAMPLER Ot R10.84 GENERALIZED ABDOMINAL PAIN 05/29/2017 MELISSA ROCK, IVETTE Martinez Ot Z12.31 ENCNTR SCREEN MAMMOGRAM FOR MALIGNANT NE 05/29/2017 JAY ROCK, JAY JAY Kellogg Ot D64.9 ANEMIA, UNSPECIFIED 05/29/2017 JAY ROCK, JAY JAY Kellogg Ot D64.9 ANEMIA, UNSPECIFIED 06/01/2017 JAY JAY THOMPSON MD Ot D64.9 ANEMIA, UNSPECIFIED 06/19/2017 JAY JAY THOMPSON MD Ot D64.9 ANEMIA, UNSPECIFIED 07/06/2017 JAY ROCK, JAY JAY Kellogg Ot D64.9 ANEMIA, UNSPECIFIED 07/22/2018 JADEN DICKERSON MD Ot 287.5 THROMBOCYTOPENIA NOS 07/22/2018 JAYLA ROCK, JADEN Mcgrath Ot V76.12 OTH SCREEN MAMMO-MALIGN NEOPLASM OF [place] 07/22/2018 IOANADARRIUS DRUM LOADER AND UNLOADER Ot V76.12 OTH SCREEN MAMMO-MALIGN NEOPLASM OF [place] 07/22/2018 GILLIAN CUNNINGHAM CHEMICAL ANALYTICAL SAMPLER Ot R10.31 RIGHT LOWER QUADRANT PAIN 07/22/2018 YOVANI CUNNINGHAMJANIE Mcgrath CHEMICAL ANALYTICAL SAMPLER Ot R10.84 GENERALIZED ABDOMINAL PAIN 07/22/2018 MELISSA ROCK, IVETTE Martinez Ot Z12.31 ENCNTR SCREEN MAMMOGRAM FOR MALIGNANT NE 07/22/2018 JAY JAY THOMPSON MD Ot D64.9 ANEMIA, UNSPECIFIED 07/22/2018 JAY JAY THOMPSON MD Ot Z12.3 1 ENCNTR SCREEN MAMMOGRAM FOR MALIGNANT NE 07/23/2018 JAY JAY THOMPSON MD Ot Z12.3 1 ENCNTR SCREEN MAMMOGRAM FOR MALIGNANT NE 08/13/2018 JAY JAY THOMPSON MD Ot Z12.3 1 ENCNTR SCREEN MAMMOGRAM FOR MALIGNANT NE 05/10/2019 FRAN PINEDA MD Ot E83. 42 HYPOMAGNESEMIA 05/10/2019 FRAN PINEDA MD Ot I10 ESSENTIAL (PRIMARY) HYPERTENSION 05/10/2019 FRAN PINEDA MD Ot I25. 10 ATHSCL HEART DISEASE OF [place] CORONARY 05/10/2019 FRAN PINEDA MD Ot I25. 2 OLD MYOCARDIAL INFARCTION 05/10/2019 FRAN PINEDA MD Ot J20. 9 ACUTE BRONCHITIS, UNSPECIFIED 05/10/2019 FRAN PINEDA MD Ot J44. 0 CHR OBSTRUCTIVE PULMON DISEASE WITH (ACU 05/10/2019 FRAN PINEDA MD Ot R00. 0 TACHYCARDIA, UNSPECIFIED 05/10/2019 FRAN PINEDA MD Ot R09. 02 HYPOXEMIA 05/10/2019 FRAN PINEDA MD Ot R53. 1 WEAKNESS 05/10/2019 FRAN PINEDA MD Ot Z23 ENCOUNTER FOR IMMUNIZATION 05/10/2019 FRAN PINEDA MD Ot Z86. 73 PRSNL HX OF TIA (TIA), AND CEREB INFRC W 05/10/2019 FRAN PINEDA MD Ot E83. 42 HYPOMAGNESEMIA 05/10/2019 FRAN PINEDA MD Ot I10 ESSENTIAL (PRIMARY) HYPERTENSION 05/10/2019 FRAN PINEDA MD, Ot I25. 10 ATHSCL HEART DISEASE OF [place] CORONARY 05/10/2019 FRAN PINEDA MD, Ot I25. 2 OLD MYOCARDIAL INFARCTION 05/10/2019 FRAN PINEDA MD, Ot J20. 9 ACUTE BRONCHITIS, UNSPECIFIED 05/10/2019 FRAN PINEDA MD, Ot J44. 0 CHR OBSTRUCTIVE PULMON DISEASE WITH (ACU 05/10/2019 FRAN PINEDA MD, Ot J47. 0 BRONCHIECTASIS WITH ACUTE LOWER RESPIRAT 05/10/2019 FRAN PINEDA MD, Ot J98. 11 ATELECTASIS 05/10/2019 FRAN PINEDA MD, Ot R00. 0 TACHYCARDIA, UNSPECIFIED 05/10/2019 FRAN PINEDA MD, Ot R09. 02 HYPOXEMIA 05/10/2019 FRAN PINEDA MD, Ot R53. 1 WEAKNESS 05/10/2019 FRAN PINEDA MD, Ot R59. 0 LOCALIZED ENLARGED LYMPH NODES 05/10/2019 FRAN PINEDA MD, Ot Z23 ENCOUNTER FOR IMMUNIZATION 05/10/2019 FRAN PINEDA MD, Ot Z86. 73 PRSNL HX OF TIA (TIA), AND CEREB INFRC W 05/16/2019 VERONICA MANE MD, Ot A41. 9 SEPSIS, UNSPECIFIED ORGANISM 05/16/2019 VERONICA MANE MD, Ot B95. 2 ENTEROCOCCUS THE CAUSE OF DISEASES CL 05/16/2019 VERONICA MANE MD, Ot I10 ESSENTIAL (PRIMARY) HYPERTENSION 05/16/2019 VERONICA MANE MD, Ot I25. 10 ATHSCL HEART DISEASE OF [place] CORONARY 05/16/2019 VERONICA MANE MD, Ot I25. 2 OLD MYOCARDIAL INFARCTION 05/16/2019 VERONICA MANE MD, Ot K21. 9 GASTRO-ESOPHAGEAL REFLUX DISEASE WITHOUT 05/16/2019 VERONICA MANE MD, Ot K59. 09 OTHER CONSTIPATION 05/16/2019 VERONICA MANE MD, Ot N10 ACUTE PYELONEPHRITIS 05/16/2019 VERONICA MANE MD, Ot R74. 0 NONSPEC ELEV OF LEVELS OF TRANSAMNS LA 05/16/2019 VERONICA MANE MD, Ot Z86. 73 PRSNL HX OF TIA (TIA), AND CEREB INFRC W 05/16/2019 [place], VERONICA Mcgrath Ot Z87. 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 10 ATHSCL HEART DISEASE OF [place] CORONARY 06/22/2019 FRAN PINEDA MD Ot I25. 2 OLD MYOCARDIAL INFARCTION 06/22/2019 FRAN PINEDA MD Ot J32. 9 CHRONIC SINUSITIS, UNSPECIFIED 06/22/2019 FRAN PINEDA MD, Ot J44. 1 CHRONIC OBSTRUCTIVE PULMONARY DISEASE W 06/22/2019 FRAN PINEDA MD Ot R09. 02 HYPOXEMIA 06/22/2019 FRAN PINEDA MD Ot Z86. 73 PRSNL HX OF TIA (TIA), AND CEREB INFRC W Procedures There is no data. Results Test Result Range Comprehensive metabolic panel - 05/24/17 13:10 Serum or plasma sodium measurement (moles/volume) 135 mmol/L 135-145 Serum or plasma potassium measurement (moles/volume) 3.6 mmol/L 3.6-5.0 Serum or plasma chloride measurement (moles/volume) 95 mmol/L 98-107 Carbon dioxide 26 mmol/L 21-32 Serum or plasma anion gap determination (moles/volume) 14 mmol/L 5-14 Serum or plasma urea nitrogen measurement (mass/volume ) 44 mg/dL 7-18 Serum or plasma creatinine measurement (mass/volume) 1.37 mg/dL 0.60-1.30 Serum or plasma urea nitrogen/creatinine mass ratio 32 NRG Serum or plasma creatinine measurement w ith calculation of estimated glomerular filtration rate 37 NRG Serum or plasma glucose measurement (mass/volume) 145 mg/dL 70-105 Serum or plasma calcium measurement (mass/volume) 9.1 mg/dL 8.5-10.1 Serum or plasma total bilirubin measurement (mass/volu me) 0.6 mg/dL 0.1-1.0 Serum or plasma alkaline phosphatase shani surement (enzymatic activity/volume) 130 U/L 40-136 Serum or plasma aspartate aminotransfera se measurement (enzymatic activity/volume) 22 U/L 5-34 Serum or plasma alanine aminotransferase measurement (enzymatic activity/volume) 15 U/L 0-55 Serum or plasma protein measurement (mass/volume) 6.2 g/dL 6.4-8.2 Serum or plasma albumin measurement (mass/volume) 3.5 g/dL 3.2-4.5 Complete blood count (CBC) with automate d white blood cell (WBC) differential - 05/24/17 13:20 Blood leukocytes automated count (number/volume) 18.1 10*3/uL 4.3-11.0 Blood erythrocytes automated count (number/volume) 3.87 10*6/uL 4.35-5.85 Venous blood hemoglobin measurement (mass/volume) 12.0 g/dL 11.5-16.0 Blood hematocrit (volume fraction) 35 % 35-52 Automated erythrocyte mean corpuscular volume 90 [ foz_us] 80-99 Automated erythrocyte mean corpuscular h emoglobin (mass per erythrocyte) 31 pg 25-34 Automated erythrocyte mean corpuscular h emoglobin concentration measurement (mass/volume) 34 g/dL 32-36 Automated erythrocyte distribution width ratio 12. 9 % 10.0- 14.5 Automated blood platelet count (count/volume) 309 10*3/uL 130-400 Automated blood platelet mean volume measurement 11.5 [foz_us] 7.4-10.4 Automated blood neutrophils/100 leukocytes 77 % 42-75 Automated blood lymphocytes/100 leukocytes 11 % 12-44 Blood monocytes/100 leukocytes 9 % 0-12 Automated blood eosinophils/100 leukocytes 3 % 0-10 Automated blood basophils/100 leukocytes 1 % 0-10 Blood neutrophils automated count (number/volume) 14.0 10*3 1.8-7.8 Blood lymphocytes automated count (number/volume) 1.9 10*3 1.0-4.0 Blood monocytes automated count (number/volume) 1. 6 10*3 0.0-1.0 Automated eosinophil count 0.5 10*3/uL 0 .0-0.3 Automated blood basophil count (count/volume) 0.1 10*3/uL 0.0-0.1 Blood manual differential performed dete ction - 05/24/17 13:20 Blood monocytes/100 leukocytes 13 % NRG Manual blood segmented neutrophils/100 leukocytes 75 % NRG Blood band neutrophils/100 leukocytes 1 % NRG Manual blood lymphocytes/100 leukocytes 10 % NRG Manual eosinophils/100 leukocytes in nose 1 % NRG Blood erythrocyte morphology finding identification NORMAL NRG Complete urinalysis with reflex to cultu re - 05/24/17 16:00 Urine color determination YELLOW NRG Urine clarity determination CLEAR NR G Urine pH measurement by test strip 7 5-9 Specific gravity of urine by test strip 1.005 1.016-1.022 Urine protein assay by test strip, semi-quantitative 1+ NEGATIVE Urine glucose detection by automated test strip NE GATIVE NEGATIVE Erythrocytes detection in urine sediment by light micr oscopy NEGATIVE NEGATIVE Urine ketones detection by automated test strip 1+ NEGATIVE Urine nitrite detection by test strip NEGATIVE NEGATIVE Urine total bilirubin detection by test strip NEGA TIVE NEGATIVE Urine urobilinogen measurement by automated test strip (mass/volume) NORMAL NORMAL Urine leukocyte esterase detection by dipstick 1+ NEGATIVE Automated urine sediment erythrocyte cou nt by microscopy (number/high power field) NONE NRG Automated urine sediment leukocyte count by microscopy (number/high power field) [HPF] NRG Bacteria detection in urine sediment by light microsco py NONE NRG Squamous epithelial cells detection in u rine sediment by light microscopy 5-10 NRG Crystals detection in urine sediment by light microsco py NONE NRG Casts detection in urine sediment by light microscopy NONE NRG Mucus detection in urine sediment by light microscopy NEGATIVE NRG Complete urinalysis with reflex to culture NO NRG Blood type T Indirect antibody screen pa ruben - 05/24/17 17:00 ABO+Rh group AN NRG Transfusion band number [id number] NRG Blood group antibody screen NEGATIVE NR G Methicillin resistant Staphylococcus aur eus (MRSA) screening culture - 05/24/17 19:00 Methicillin resistant Staphylococcus aureus (MRSA) scr eening culture NEG NRG Complete blood count (CBC) with automate d white blood cell (WBC) differential - 05/25/17 00:30 Blood leukocytes automated count (number/volume) 11.9 10*3/uL 4.3-11.0 Blood erythrocytes automated count (number/volume) 3.04 10*6/uL 4.35-5.85 Venous blood hemoglobin measurement (mass/volume) 9.3 g/dL 11.5-16.0 Blood hematocrit (volume fraction) 27 % 35-52 Automated erythrocyte mean corpuscular volume 90 [ foz_us] 80-99 Automated erythrocyte mean corpuscular h emoglobin (mass per erythrocyte) 31 pg 25-34 Automated erythrocyte mean corpuscular h emoglobin concentration measurement (mass/volume) 34 g/dL 32-36 Automated erythrocyte distribution width ratio 12. 7 % 10.0- 14.5 Automated blood platelet count (count/volume) 216 10*3/uL 130-400 Automated blood platelet mean volume measurement 10.8 [foz_us] 7.4-10.4 Automated blood neutrophils/100 leukocytes 66 % 42-75 Automated blood lymphocytes/100 leukocytes 21 % 12-44 Blood monocytes/100 leukocytes 10 % 0-12 Automated blood eosinophils/100 leukocytes 2 % 0-10 Automated blood basophils/100 leukocytes 0 % 0-10 Blood neutrophils automated count (number/volume) 7.9 10*3 1.8-7.8 Blood lymphocytes automated count (number/volume) 2.5 10*3 1.0-4.0 Blood monocytes automated count (number/volume) 1. 2 10*3 0.0-1.0 Automated eosinophil count 0.3 10*3/uL 0 .0-0.3 Automated blood basophil count (count/volume) 0.1 10*3/uL 0.0-0.1 Complete blood count (CBC) with automate d white blood cell (WBC) differential - 05/25/17 04:45 Blood leukocytes automated count (number/volume) 10.5 10*3/uL 4.3-11.0 Blood erythrocytes automated count (number/volume) 2.84 10*6/uL 4.35-5.85 Venous blood hemoglobin measurement (mass/volume) 8.6 g/dL 11.5-16.0 Blood hematocrit (volume fraction) 26 % 35-52 Automated erythrocyte mean corpuscular volume 91 [ foz_us] 80-99 Automated erythrocyte mean corpuscular h emoglobin (mass per erythrocyte) 30 pg 25-34 Automated erythrocyte mean corpuscular h emoglobin concentration measurement (mass/volume) 33 g/dL 32-36 Automated erythrocyte distribution width ratio 12. 8 % 10.0- 14.5 Automated blood platelet count (count/volume) 211 10*3/uL 130-400 Automated blood platelet mean volume measurement 11.3 [foz_us] 7.4-10.4 Automated blood neutrophils/100 leukocytes 65 % 42-75 Automated blood lymphocytes/100 leukocytes 22 % 12-44 Blood monocytes/100 leukocytes 10 % 0-12 Automated blood eosinophils/100 leukocytes 3 % 0-10 Automated blood basophils/100 leukocytes 1 % 0-10 Blood neutrophils automated count (number/volume) 6.8 10*3 1.8-7.8 Blood lymphocytes automated count (number/volume) 2.3 10*3 1.0-4.0 Blood monocytes automated count (number/volume) 1. 0 10*3 0.0-1.0 Automated eosinophil count 0.3 10*3/uL 0 .0-0.3 Automated blood basophil count (count/volume) 0.1 10*3/uL 0.0-0.1 Whole blood basic metabolic panel - 01/03 04:45 Serum or plasma sodium measurement (moles/volume) 139 mmol/L 135-145 Serum or plasma potassium measurement (moles/volume) 3.5 mmol/L 3.6-5.0 Serum or plasma chloride measurement (moles/volume) 109 mmol/L 98-107 Carbon dioxide 23 mmol/L 21-32 Serum or plasma anion gap determination (moles/volume) 7 mmol/L 5-14 Serum or plasma urea nitrogen measurement (mass/volume ) 49 mg/dL 7-18 Serum or plasma creatinine measurement (mass/volume) 0.73 mg/dL 0.60-1.30 Serum or plasma urea nitrogen/creatinine mass ratio 67 NRG Serum or plasma creatinine measurement w ith calculation of estimated glomerular filtration rate > NRG Serum or plasma glucose measurement (mass/volume) 107 mg/dL 70-105 Serum or plasma calcium measurement (mass/volume) 8.1 mg/dL 8.5-10.1 Serum or plasma phosphate measurement (m ass/volume) - 05/25/17 04:45 Serum or plasma phosphate measurement (mass/volume) 1.9 mg/dL 2.3-4.7 Magnesium - 05/25/17 04:45 Magnesium 1.2 mg/dL 1.8-2.4 RED CELLS LEUKO REDUCED AS1 - 05/29/17 0 8:24 RED CELLS LEUKO REDUCED AS1 T RANSFUSED 05/29/17 [id number] [facility] Blood type T Indirect antibody screen pa ruben - 05/29/17 08:24 ABO+Rh group AN [facility] Transfusion band number [id number] [facility] Blood group antibody screen NEGATIVE NR G Serum or plasma ferritin measurement (ma ss/volume) - 05/29/17 08:24 Serum or plasma ferritin measurement (mass/volume) 213.0 % 15.0-150.0 Complete blood count (CBC) with automate d white blood cell (WBC) differential - 05/06/19 18:23 Blood leukocytes automated count (number/volume) 16.9 10*3/uL 4.3-11.0 Blood erythrocytes automated count (number/volume) 4.81 10*6/uL 4.35-5.85 Venous blood hemoglobin measurement (mass/volume) 14.1 g/dL 11.5-16.0 Blood hematocrit (volume fraction) 42 % 35-52 Automated erythrocyte mean corpuscular volume 88 [ foz_us] 80-99 Automated erythrocyte mean corpuscular h emoglobin (mass per erythrocyte) 29 pg 25-34 Automated erythrocyte mean corpuscular h emoglobin concentration measurement (mass/volume) 33 g/dL 32-36 Automated erythrocyte distribution width ratio 14. 4 % 10.0- 14.5 Automated blood platelet count (count/volume) 309 10*3/uL 130-400 Automated blood platelet mean volume measurement 10.7 [foz_us] 7.4-10.4 Automated blood neutrophils/100 leukocytes 53 % 42-75 Automated blood lymphocytes/100 leukocytes 25 % 12-44 Blood monocytes/100 leukocytes 7 % 0-12 Automated blood eosinophils/100 leukocytes 14 % 0-10 Automated blood basophils/100 leukocytes 1 % 0-10 Blood neutrophils automated count (number/volume) 9.0 10*3 1.8-7.8 Blood lymphocytes automated count (number/volume) 4.2 10*3 1.0-4.0 Blood monocytes automated count (number/volume) 1. 2 10*3 0.0-1.0 Automated eosinophil count 2.4 10*3/uL 0 .0-0.3 Automated blood basophil count (count/volume) 0.1 10*3/uL 0.0-0.1 Blood lactic acid measurement (moles/vol ume) - 05/06/19 18:23 Blood lactic acid measurement (moles/volume) 1.24 mmol/L 0.50-2.00 Comprehensive metabolic panel - 05/06/19 18:23 Serum or plasma sodium measurement (moles/volume) 138 mmol/L 135-145 Serum or plasma potassium measurement (moles/volume) 4.0 mmol/L 3.6-5.0 Serum or plasma chloride measurement (moles/volume) 104 mmol/L 98-107 Carbon dioxide 22 mmol/L 21-32 Serum or plasma anion gap determination (moles/volume) 12 mmol/L 5-14 Serum or plasma urea nitrogen measurement (mass/volume ) 14 mg/dL 7-18 Serum or plasma creatinine measurement (mass/volume) 0.83 mg/dL 0.60-1.30 Serum or plasma urea nitrogen/creatinine mass ratio 17 NRG Serum or plasma creatinine measurement w ith calculation of estimated glomerular filtration rate > NRG Serum or plasma glucose measurement (mass/volume) 116 mg/dL 70-105 Serum or plasma calcium measurement (mass/volume) 9.5 mg/dL 8.5-10.1 Serum or plasma total bilirubin measurement (mass/volu me) 0.3 mg/dL 0.1-1.0 Serum or plasma alkaline phosphatase shani surement (enzymatic activity/volume) 157 U/L 40-136 Serum or plasma aspartate aminotransfera se measurement (enzymatic activity/volume) 19 U/L 5-34 Serum or plasma alanine aminotransferase measurement (enzymatic activity/volume) 16 U/L 0-55 Serum or plasma protein measurement (mass/volume) 6.7 g/dL 6.4-8.2 Serum or plasma albumin measurement (mass/volume) 4.0 g/dL 3.2-4.5 CALCIUM CORRECTED 9.5 mg/dL 8.5-10.1 Magnesium - 05/06/19 18:23 Magnesium 1.5 mg/dL 1.6-2.4 PT panel in platelet poor plasma by coag ulation assay - 05/06/19 18:23 Prothrombin time (PT) in platelet poor plasma by coagu lation assay 13.4 s 12.2-14.7 INR in platelet poor plasma or blood by coagulation as say 1.0 0.8-1.4 Activated partial thromboplastin time (a PTT) in platelet poor plasma bycoagulation assay - 05/06/19 18:23 Activated partial thromboplastin time (a PTT) in platelet poor plasma bycoagulation assay 31 s 24-35 Serum or plasma troponin i.cardiac measu rement (mass/volume) - 05/06/19 18:23 Serum or plasma troponin i.cardiac measurement (mass/v olume) < ng/mL <0.028 Influenza virus A and B antigen detectio n - 05/06/19 18:23 FLU RESULT NEGATIVE FOR INFLUENZA A AND B ANTIGENS BY IA NR Manual absolute plasma cell count - 04/19 03/07 18:23 Blood monocytes/100 leukocytes 11 % NRG Manual blood segmented neutrophils/100 leukocytes 58 % NRG Blood band neutrophils/100 leukocytes 1 % NRG Manual blood lymphocytes/100 leukocytes 18 % NRG Manual eosinophils/100 leukocytes in nose 11 % NRG Manual blood lymphocytes variant/100 leukocytes 1 % NR Blood erythrocyte morphology finding identification NORMAL NRG Serum or plasma lithium measurement (mol es/volume) - 05/06/19 18:23 BNP PT 247.0 pg/mL <100.0 Bacterial blood culture - 05/06/19 18:23 Bacterial blood culture NG NRG Arterial blood gas measurement - 9 18:38 Blood pCO2 44 mm[Hg] 35-45 Blood pO2 48 mm[Hg] 79-93 Arterial blood bicarbonate measurement (moles/volume) 25 mmol/L 23-27 Arterial blood base excess by calculation -0.1 mmo l/L -2.5-2.5 Arterial blood oxygen saturation measurement 81 % 94-100 * Inhaled oxygen flow rate 2L NRG Arterial blood pH measurement with patient temperature correction 7.37 7.37-7.43 Arterial blood carbon dioxide, total measurement (mole s/volume) 25.8 mmol/L 21.0-31.0 Body site LR NRG Assessment of wrist artery patency prior to arterial p uncture YES-POS NRG Setting of ventilation mode NO NR G Measurement of body temperature 37.4 NRG Bacterial blood culture - 05/06/19 18:50 Bacterial blood culture NG NRG Complete urinalysis with reflex to cultu re - 05/06/19 18:54 Urine color determination YELLOW NRG Urine clarity determination SLIGHTLY CLOUDY NRG Urine pH measurement by test strip 5 5-9 Specific gravity of urine by test strip 1.030 1.016-1.022 Urine protein assay by test strip, semi-quantitative 3+ NEGATIVE Urine glucose detection by automated test strip NE GATIVE NEGATIVE Erythrocytes detection in urine sediment by light micr oscopy 2+ NEGATIVE Urine ketones detection by automated test strip 2+ NEGATIVE Urine nitrite detection by test strip NEGATIVE NEGATIVE Urine total bilirubin detection by test strip NEGA TIVE NEGATIVE Urine urobilinogen measurement by automated test strip (mass/volume) NORMAL NORMAL Urine leukocyte esterase detection by dipstick 2+ NEGATIVE Automated urine sediment erythrocyte cou nt by microscopy (number/high power field) [HPF] NRG Automated urine sediment leukocyte count by microscopy (number/high power field) [HPF] NRG Bacteria detection in urine sediment by light microsco py FEW NRG Crystals detection in urine sediment by light microsco py NONE NRG Casts detection in urine sediment by light microscopy PRESENT NRG Mucus detection in urine sediment by light microscopy MODERATE NRG Complete urinalysis with reflex to culture CULTURE PENDING NRG Hyaline casts detection in urine sediment by light rhonda roscopy 2-5 NRG Bacterial urine culture - 05/06/19 18:54 Bacterial urine culture NG NRG Complete blood count (CBC) with automate d white blood cell (WBC) differential - 05/07/19 05:25 Blood leukocytes automated count (number/volume) 12.8 10*3/uL 4.3-11.0 Blood erythrocytes automated count (number/volume) 4.26 10*6/uL 4.35-5.85 Venous blood hemoglobin measurement (mass/volume) 12.4 g/dL 11.5-16.0 Blood hematocrit (volume fraction) 37 % 35-52 Automated erythrocyte mean corpuscular volume 88 [ foz_us] 80-99 Automated erythrocyte mean corpuscular h emoglobin (mass per erythrocyte) 29 pg 25-34 Automated erythrocyte mean corpuscular h emoglobin concentration measurement (mass/volume) 33 g/dL 32-36 Automated erythrocyte distribution width ratio 14. 1 % 10.0- 14.5 Automated blood platelet count (count/volume) 243 10*3/uL 130-400 Automated blood platelet mean volume measurement 10.5 [foz_us] 7.4-10.4 Automated blood neutrophils/100 leukocytes 89 % 42-75 Automated blood lymphocytes/100 leukocytes 10 % 12-44 Blood monocytes/100 leukocytes 1 % 0-12 Automated blood eosinophils/100 leukocytes 0 % 0-10 Automated blood basophils/100 leukocytes 0 % 0-10 Blood neutrophils automated count (number/volume) 11.3 10*3 1.8-7.8 Blood lymphocytes automated count (number/volume) 1.3 10*3 1.0-4.0 Blood monocytes automated count (number/volume) 0. 1 10*3 0.0-1.0 Automated eosinophil count 0.0 10*3/uL 0 .0-0.3 Automated blood basophil count (count/volume) 0.0 10*3/uL 0.0-0.1 Comprehensive metabolic panel - 05/07/19 05:25 Serum or plasma sodium measurement (moles/volume) 136 mmol/L 135-145 Serum or plasma potassium measurement (moles/volume) 3.7 mmol/L 3.6-5.0 Serum or plasma chloride measurement (moles/volume) 105 mmol/L 98-107 Carbon dioxide 19 mmol/L 21-32 Serum or plasma anion gap determination (moles/volume) 12 mmol/L 5-14 Serum or plasma urea nitrogen measurement (mass/volume ) 8 mg/dL 7-18 Serum or plasma creatinine measurement (mass/volume) 0.67 mg/dL 0.60-1.30 Serum or plasma urea nitrogen/creatinine mass ratio 12 NRG Serum or plasma creatinine measurement w ith calculation of estimated glomerular filtration rate > NRG Serum or plasma glucose measurement (mass/volume) 145 mg/dL 70-105 Serum or plasma calcium measurement (mass/volume) 8.4 mg/dL 8.5-10.1 Serum or plasma total bilirubin measurement (mass/volu me) 0.3 mg/dL 0.1-1.0 Serum or plasma alkaline phosphatase shani surement (enzymatic activity/volume) 152 U/L 40-136 Serum or plasma aspartate aminotransfera se measurement (enzymatic activity/volume) 14 U/L 5-34 Serum or plasma alanine aminotransferase measurement (enzymatic activity/volume) 13 U/L 0-55 Serum or plasma protein measurement (mass/volume) 5.7 g/dL 6.4-8.2 Serum or plasma albumin measurement (mass/volume) 3.4 g/dL 3.2-4.5 CALCIUM CORRECTED 8.9 mg/dL 8.5-10.1 PROCALCITONIN (PCT) - 05/07/19 05:25 PROCALCITONIN (PCT) 0.04 ng/mL <0.10 Serum or plasma troponin i.cardiac measu rement (mass/volume) - 05/07/19 14:00 Serum or plasma troponin i.cardiac measurement (mass/v olume) 0.028 ng/mL <0.028 Sputum Gram stain - 05/09/19 12:18 Sputum Gram stain Few Gram positive cocci in pairs NRG Bacterial sputum culture - 05/09/19 12:1 8 QUANTITY OF GROWTH . NRG Bacterial sputum culture USUAL RESP NRG Complete urinalysis with reflex to cultu re - 05/12/19 11:30 Urine color determination YELLOW NRG Urine clarity determination CLEAR NR G Urine pH measurement by test strip 7 5-9 Specific gravity of urine by test strip 1.005 1.016-1.022 Urine protein assay by test strip, semi-quantitative 2+ NEGATIVE Urine glucose detection by automated test strip NE GATIVE NEGATIVE Erythrocytes detection in urine sediment by light micr oscopy 1+ NEGATIVE Urine ketones detection by automated test strip NE GATIVE NEGATIVE Urine nitrite detection by test strip NEGATIVE NEGATIVE Urine total bilirubin detection by test strip NEGA TIVE NEGATIVE Urine urobilinogen measurement by automated test strip (mass/volume) NORMAL NORMAL Urine leukocyte esterase detection by dipstick 2+ NEGATIVE Automated urine sediment erythrocyte cou nt by microscopy (number/high power field) RARE NRG Automated urine sediment leukocyte count by microscopy (number/high power field) [HPF] NRG Bacteria detection in urine sediment by light microsco py TRACE NRG Squamous epithelial cells detection in u rine sediment by light microscopy 5-10 NRG Crystals detection in urine sediment by light microsco py NONE NRG Casts detection in urine sediment by light microscopy NONE NRG Mucus detection in urine sediment by light microscopy NEGATIVE NRG Complete urinalysis with reflex to culture YES NRG Bacterial urine culture - 05/12/19 11:30 Bacterial urine culture [id number] NRG COLONY COUNT 40,000 CFU/ML NRG FTX;REPORTABLE SUSCEPTIBILITIES REPORTED [id number] NRG Dirithromycin susceptibility test by dis k diffusion - 05/12/19 11:30 Vancomycin susceptibility test by minimum inhibitory c oncentration <= NRG Levofloxacin susceptibility test by minimum inhibitory concentration <= NRG Ampicillin susceptibility test by minimum inhibitory c oncentration 1 NRG Linezolid susceptibility test by minimum inhibitory co ncentration 2 NRG Daptomycin susc RHONDA 2 NRG Dirithromycin susceptibility test by dis k diffusion - 05/12/19 11:30 Vancomycin susceptibility test by minimum inhibitory c oncentration <= NRG Levofloxacin susceptibility test by minimum inhibitory concentration <= NRG Ampicillin susceptibility test by minimum inhibitory c oncentration 1 NRG Linezolid susceptibility test by minimum inhibitory co ncentration 4 NRG Daptomycin susc RHONDA 4 NRG Complete blood count (CBC) with automate d white blood cell (WBC) differential - 05/12/19 12:45 Blood leukocytes automated count (number/volume) 20.9 10*3/uL 4.3-11.0 Blood erythrocytes automated count (number/volume) 4.34 10*6/uL 4.35-5.85 Venous blood hemoglobin measurement (mass/volume) 12.7 g/dL 11.5-16.0 Blood hematocrit (volume fraction) 39 % 35-52 Automated erythrocyte mean corpuscular volume 89 [ foz_us] 80-99 Automated erythrocyte mean corpuscular h emoglobin (mass per erythrocyte) 29 pg 25-34 Automated erythrocyte mean corpuscular h emoglobin concentration measurement (mass/volume) 33 g/dL 32-36 Automated erythrocyte distribution width ratio 14. 6 % 10.0- 14.5 Automated blood platelet count (count/volume) 234 10*3/uL 130-400 Automated blood platelet mean volume measurement 10.5 [foz_us] 7.4-10.4 Automated blood neutrophils/100 leukocytes 63 % 42-75 Automated blood lymphocytes/100 leukocytes 11 % 12-44 Blood monocytes/100 leukocytes 7 % 0-12 Automated blood eosinophils/100 leukocytes 19 % 0-10 Automated blood basophils/100 leukocytes 0 % 0-10 Blood neutrophils automated count (number/volume) 13.1 10*3 1.8-7.8 Blood lymphocytes automated count (number/volume) 2.4 10*3 1.0-4.0 Blood monocytes automated count (number/volume) 1. 4 10*3 0.0-1.0 Automated eosinophil count 3.9 10*3/uL 0 .0-0.3 Automated blood basophil count (count/volume) 0.1 10*3/uL 0.0-0.1 Comprehensive metabolic panel - 05/12/19 12:45 Serum or plasma sodium measurement (moles/volume) 140 mmol/L 135-145 Serum or plasma potassium measurement (moles/volume) 4.1 mmol/L 3.6-5.0 Serum or plasma chloride measurement (moles/volume) 102 mmol/L 98-107 Carbon dioxide 25 mmol/L 21-32 Serum or plasma anion gap determination (moles/volume) 13 mmol/L 5-14 Serum or plasma urea nitrogen measurement (mass/volume ) 30 mg/dL 7-18 Serum or plasma creatinine measurement (mass/volume) 0.96 mg/dL 0.60-1.30 Serum or plasma urea nitrogen/creatinine mass ratio 31 NRG Serum or plasma creatinine measurement w ith calculation of estimated glomerular filtration rate 55 NRG Serum or plasma glucose measurement (mass/volume) 97 mg/dL 70-105 Serum or plasma calcium measurement (mass/volume) 9.0 mg/dL 8.5-10.1 Serum or plasma total bilirubin measurement (mass/volu me) 0.4 mg/dL 0.1-1.0 Serum or plasma alkaline phosphatase shani surement (enzymatic activity/volume) 107 U/L 40-136 Serum or plasma aspartate aminotransfera se measurement (enzymatic activity/volume) 19 U/L 5-34 Serum or plasma alanine aminotransferase measurement (enzymatic activity/volume) 20 U/L 0-55 Serum or plasma protein measurement (mass/volume) 5.7 g/dL 6.4-8.2 Serum or plasma albumin measurement (mass/volume) 3.4 g/dL 3.2-4.5 CALCIUM CORRECTED 9.5 mg/dL 8.5-10.1 Manual absolute plasma cell count - 04/20 11/05 12:45 Blood monocytes/100 leukocytes 8 % NRG Manual blood segmented neutrophils/100 leukocytes 61 % NRG Manual blood lymphocytes/100 leukocytes 16 % NRG Manual eosinophils/100 leukocytes in nose 15 % NRG Blood erythrocyte morphology finding identification NORMAL NRG Complete blood count (CBC) with automate d white blood cell (WBC) differential - 05/13/19 14:30 Blood leukocytes automated count (number/volume) 31.8 10*3/uL 4.3-11.0 Blood erythrocytes automated count (number/volume) 4.89 10*6/uL 4.35-5.85 Venous blood hemoglobin measurement (mass/volume) 14.5 g/dL 11.5-16.0 Blood hematocrit (volume fraction) 42 % 35-52 Automated erythrocyte mean corpuscular volume 87 [ foz_us] 80-99 Automated erythrocyte mean corpuscular h emoglobin (mass per erythrocyte) 30 pg 25-34 Automated erythrocyte mean corpuscular h emoglobin concentration measurement (mass/volume) 34 g/dL 32-36 Automated erythrocyte distribution width ratio 14. 0 % 10.0- 14.5 Automated blood platelet count (count/volume) 242 10*3/uL 130-400 Automated blood platelet mean volume measurement 10.5 [foz_us] 7.4-10.4 Automated blood neutrophils/100 leukocytes 87 % 42-75 Automated blood lymphocytes/100 leukocytes 4 % 12-44 Blood monocytes/100 leukocytes 9 % 0-12 Automated blood eosinophils/100 leukocytes 0 % 0-10 Automated blood basophils/100 leukocytes 0 % 0-10 Blood neutrophils automated count (number/volume) 27.5 10*3 1.8-7.8 Blood lymphocytes automated count (number/volume) 1.2 10*3 1.0-4.0 Blood monocytes automated count (number/volume) 3. 0 10*3 0.0-1.0 Automated eosinophil count 0.1 10*3/uL 0 .0-0.3 Automated blood basophil count (count/volume) 0.0 10*3/uL 0.0-0.1 Manual absolute plasma cell count - 04/20 12/05 14:30 Blood monocytes/100 leukocytes 6 % NRG Manual blood segmented neutrophils/100 leukocytes 90 % NRG Blood band neutrophils/100 leukocytes 2 % NRG Manual blood lymphocytes/100 leukocytes 2 % NRG Manual eosinophils/100 leukocytes in nose 0 % NRG Manual blood basophils/100 leukocytes 0 % NRG Blood erythrocyte morphology finding identification NORMAL NRG Bacterial blood culture - 05/13/19 14:58 Bacterial blood culture NG NRG Blood lactic acid measurement (moles/vol ume) - 05/13/19 14:59 Blood lactic acid measurement (moles/volume) 1.19 mmol/L 0.50-2.00 Bacterial blood culture - 05/13/19 14:59 Bacterial blood culture NG NRG Comprehensive metabolic panel - 05/13/19 15:53 Serum or plasma sodium measurement (moles/volume) 130 mmol/L 135-145 Serum or plasma potassium measurement (moles/volume) 4.3 mmol/L 3.6-5.0 Serum or plasma chloride measurement (moles/volume) 94 mmol/L 98-107 Carbon dioxide 25 mmol/L 21-32 Serum or plasma anion gap determination (moles/volume) 11 mmol/L 5-14 Serum or plasma urea nitrogen measurement (mass/volume ) 18 mg/dL 7-18 Serum or plasma creatinine measurement (mass/volume) 0.96 mg/dL 0.60-1.30 Serum or plasma urea nitrogen/creatinine mass ratio 19 NRG Serum or plasma creatinine measurement w ith calculation of estimated glomerular filtration rate 55 NRG Serum or plasma glucose measurement (mass/volume) 135 mg/dL 70-105 Serum or plasma calcium measurement (mass/volume) 9.3 mg/dL 8.5-10.1 Serum or plasma total bilirubin measurement (mass/volu me) 0.9 mg/dL 0.1-1.0 Serum or plasma alkaline phosphatase shani surement (enzymatic activity/volume) 148 U/L 40-136 Serum or plasma aspartate aminotransfera se measurement (enzymatic activity/volume) 108 U/L 5-34 Serum or plasma alanine aminotransferase measurement (enzymatic activity/volume) 92 U/L 0-55 Serum or plasma protein measurement (mass/volume) 6.7 g/dL 6.4-8.2 Serum or plasma albumin measurement (mass/volume) 3.9 g/dL 3.2-4.5 CALCIUM CORRECTED 9.4 mg/dL 8.5-10.1 Complete urinalysis with reflex to cultu re - 05/13/19 15:53 Urine color determination YELLOW NRG Urine clarity determination CLEAR NR G Urine pH measurement by test strip 6.5 5-9 Specific gravity of urine by test strip 1.015 1.016-1.022 Urine protein assay by test strip, semi-quantitative 3+ NEGATIVE Urine glucose detection by automated test strip NE GATIVE NEGATIVE Erythrocytes detection in urine sediment by light micr oscopy 2+ NEGATIVE Urine ketones detection by automated test strip 4+ NEGATIVE Urine nitrite detection by test strip NEGATIVE NEGATIVE Urine total bilirubin detection by test strip NEGA TIVE NEGATIVE Urine urobilinogen measurement by automated test strip (mass/volume) NORMAL NORMAL Urine leukocyte esterase detection by dipstick 2+ NEGATIVE Automated urine sediment erythrocyte cou nt by microscopy (number/high power field) [HPF] NRG Automated urine sediment leukocyte count by microscopy (number/high power field) [HPF] NRG Bacteria detection in urine sediment by light microsco py FEW NRG Squamous epithelial cells detection in u rine sediment by light microscopy 10-25 NRG Crystals detection in urine sediment by light microsco py NONE NRG Casts detection in urine sediment by light microscopy NONE NRG Mucus detection in urine sediment by light microscopy SMALL NRG Complete urinalysis with reflex to culture YES NRG Bacterial urine culture - 05/13/19 15:53 Bacterial urine culture SEE COMMEN NRG COLONY COUNT . NRG FTX;REPORTABLE SUSCEPTIBILITY REPORTED 05/16/19 11 :35 NRG Dirithromycin susceptibility test by dis k diffusion - 05/13/19 15:53 Vancomycin susceptibility test by minimum inhibitory c oncentration <= NRG Levofloxacin susceptibility test by minimum inhibitory concentration 2 NRG Ampicillin susceptibility test by minimum inhibitory c oncentration 1 NRG Linezolid susceptibility test by minimum inhibitory co ncentration 2 NRG Daptomycin susc RHONDA 4 NRG Dirithromycin susceptibility test by dis k diffusion - 05/13/19 15:53 Vancomycin susceptibility test by minimum inhibitory c oncentration 1 NRG Levofloxacin susceptibility test by minimum inhibitory concentration <= NRG Ampicillin susceptibility test by minimum inhibitory c oncentration 1 NRG Nitrofurantoin susceptibility test by mi nimum inhibitory concentration <= NRG Linezolid susceptibility test by minimum inhibitory co ncentration <= NRG Daptomycin susc RHONDA <= NRG Complete blood count (CBC) with automate d white blood cell (WBC) differential - 05/14/19 04:30 Blood leukocytes automated count (number/volume) 30.6 10*3/uL 4.3-11.0 Blood erythrocytes automated count (number/volume) 4.41 10*6/uL 4.35-5.85 Venous blood hemoglobin measurement (mass/volume) 12.9 g/dL 11.5-16.0 Blood hematocrit (volume fraction) 38 % 35-52 Automated erythrocyte mean corpuscular volume 87 [ foz_us] 80-99 Automated erythrocyte mean corpuscular h emoglobin (mass per erythrocyte) 29 pg 25-34 Automated erythrocyte mean corpuscular h emoglobin concentration measurement (mass/volume) 34 g/dL 32-36 Automated erythrocyte distribution width ratio 14. 3 % 10.0- 14.5 Automated blood platelet count (count/volume) 220 10*3/uL 130-400 Automated blood platelet mean volume measurement 10.6 [foz_us] 7.4-10.4 Automated blood neutrophils/100 leukocytes 85 % 42-75 Automated blood lymphocytes/100 leukocytes 6 % 12-44 Blood monocytes/100 leukocytes 10 % 0-12 Automated blood eosinophils/100 leukocytes 0 % 0-10 Automated blood basophils/100 leukocytes 0 % 0-10 Blood neutrophils automated count (number/volume) 26.0 10*3 1.8-7.8 Blood lymphocytes automated count (number/volume) 1.7 10*3 1.0-4.0 Blood monocytes automated count (number/volume) 2. 9 10*3 0.0-1.0 Automated eosinophil count 0.0 10*3/uL 0 .0-0.3 Automated blood basophil count (count/volume) 0.0 10*3/uL 0.0-0.1 Whole blood basic metabolic panel - 04/20 01/05 04:30 Serum or plasma sodium measurement (moles/volume) 133 mmol/L 135-145 Serum or plasma potassium measurement (moles/volume) 4.1 mmol/L 3.6-5.0 Serum or plasma chloride measurement (moles/volume) 100 mmol/L 98-107 Carbon dioxide 20 mmol/L 21-32 Serum or plasma anion gap determination (moles/volume) 13 mmol/L 5-14 Serum or plasma urea nitrogen measurement (mass/volume ) 17 mg/dL 7-18 Serum or plasma creatinine measurement (mass/volume) 0.91 mg/dL 0.60-1.30 Serum or plasma urea nitrogen/creatinine mass ratio 19 NRG Serum or plasma creatinine measurement w ith calculation of estimated glomerular filtration rate 58 NRG Serum or plasma glucose measurement (mass/volume) 117 mg/dL 70-105 Serum or plasma calcium measurement (mass/volume) 8.7 mg/dL 8.5-10.1 Serum or plasma aspartate aminotransfera se measurement (enzymatic activity/volume) - 05/14/19 04:30 Serum or plasma aspartate aminotransfera se measurement (enzymatic activity/volume) 77 U/L 5-34 Serum or plasma alanine aminotransferase measurement (enzymatic activity/volume) - 05/14/19 04:30 Serum or plasma alanine aminotransferase measurement (enzymatic activity/volume) 81 U/L 0-55 Automated blood complete blood count (he mogram) panel - 05/15/19 04:01 Blood leukocytes automated count (number/volume) 20.4 10*3/uL 4.3-11.0 Blood erythrocytes automated count (number/volume) 3.58 10*6/uL 4.35-5.85 Venous blood hemoglobin measurement (mass/volume) 10.6 g/dL 11.5-16.0 Blood hematocrit (volume fraction) 32 % 35-52 Automated erythrocyte mean corpuscular volume 88 [ foz_us] 80-99 Automated erythrocyte mean corpuscular h emoglobin (mass per erythrocyte) 30 pg 25-34 Automated erythrocyte mean corpuscular h emoglobin concentration measurement (mass/volume) 34 g/dL 32-36 Automated erythrocyte distribution width ratio 14. 2 % 10.0- 14.5 Automated blood platelet count (count/volume) 170 10*3/uL 130-400 Automated blood platelet mean volume measurement 11.3 [foz_us] 7.4-10.4 Whole blood basic metabolic panel - 04/20 02/04 04:01 Serum or plasma sodium measurement (moles/volume) 132 mmol/L 135-145 Serum or plasma potassium measurement (moles/volume) 3.6 mmol/L 3.6-5.0 Serum or plasma chloride measurement (moles/volume) 103 mmol/L 98-107 Carbon dioxide 20 mmol/L 21-32 Serum or plasma anion gap determination (moles/volume) 9 mmol/L 5-14 Serum or plasma urea nitrogen measurement (mass/volume ) 11 mg/dL 7-18 Serum or plasma creatinine measurement (mass/volume) 0.76 mg/dL 0.60-1.30 Serum or plasma urea nitrogen/creatinine mass ratio 14 NRG Serum or plasma creatinine measurement w ith calculation of estimated glomerular filtration rate > NRG Serum or plasma glucose measurement (mass/volume) 86 mg/dL 70-105 Serum or plasma calcium measurement (mass/volume) 7.9 mg/dL 8.5-10.1 Complete blood count (CBC) with automate d white blood cell (WBC) differential - 05/16/19 05:49 Blood leukocytes automated count (number/volume) 16.5 10*3/uL 4.3-11.0 Blood erythrocytes automated count (number/volume) 3.34 10*6/uL 4.35-5.85 Venous blood hemoglobin measurement (mass/volume) 9.6 g/dL 11.5-16.0 Blood hematocrit (volume fraction) 29 % 35-52 Automated erythrocyte mean corpuscular volume 88 [ foz_us] 80-99 Automated erythrocyte mean corpuscular h emoglobin (mass per erythrocyte) 29 pg 25-34 Automated erythrocyte mean corpuscular h emoglobin concentration measurement (mass/volume) 33 g/dL 32-36 Automated erythrocyte distribution width ratio 14. 3 % 10.0- 14.5 Automated blood platelet count (count/volume) 170 10*3/uL 130-400 Automated blood platelet mean volume measurement 11.3 [foz_us] 7.4-10.4 Automated blood neutrophils/100 leukocytes 78 % 42-75 Automated blood lymphocytes/100 leukocytes 10 % 12-44 Blood monocytes/100 leukocytes 10 % 0-12 Automated blood eosinophils/100 leukocytes 2 % 0-10 Automated blood basophils/100 leukocytes 0 % 0-10 Blood neutrophils automated count (number/volume) 12.8 10*3 1.8-7.8 Blood lymphocytes automated count (number/volume) 1.7 10*3 1.0-4.0 Blood monocytes automated count (number/volume) 1. 6 10*3 0.0-1.0 Automated eosinophil count 0.3 10*3/uL 0 .0-0.3 Automated blood basophil count (count/volume) 0.0 10*3/uL 0.0-0.1 Whole blood basic metabolic panel - 04/20 03/07 05:49 Serum or plasma sodium measurement (moles/volume) 132 mmol/L 135-145 Serum or plasma potassium measurement (moles/volume) 3.5 mmol/L 3.6-5.0 Serum or plasma chloride measurement (moles/volume) 104 mmol/L 98-107 Carbon dioxide 19 mmol/L 21-32 Serum or plasma anion gap determination (moles/volume) 9 mmol/L 5-14 Serum or plasma urea nitrogen measurement (mass/volume ) 10 mg/dL 7-18 Serum or plasma creatinine measurement (mass/volume) 0.80 mg/dL 0.60-1.30 Serum or plasma urea nitrogen/creatinine mass ratio 13 NRG Serum or plasma creatinine measurement w ith calculation of estimated glomerular filtration rate > NRG Serum or plasma glucose measurement (mass/volume) 88 mg/dL 70-105 Serum or plasma calcium measurement (mass/volume) 7.8 mg/dL 8.5-10.1 Complete blood count (CBC) with automate d white blood cell (WBC) differential - 06/19/19 04:34 Blood leukocytes automated count (number/volume) 11.3 10*3/uL 4.3-11.0 Blood erythrocytes automated count (number/volume) 4.23 10*6/uL 4.35-5.85 Venous blood hemoglobin measurement (mass/volume) 12.7 g/dL 11.5-16.0 Blood hematocrit (volume fraction) 38 % 35-52 Automated erythrocyte mean corpuscular volume 90 [ foz_us] 80-99 Automated erythrocyte mean corpuscular h emoglobin (mass per erythrocyte) 30 pg 25-34 Automated erythrocyte mean corpuscular h emoglobin concentration measurement (mass/volume) 33 g/dL 32-36 Automated erythrocyte distribution width ratio 14. 4 % 10.0- 14.5 Automated blood platelet count (count/volume) 188 10*3/uL 130-400 Automated blood platelet mean volume measurement 11.0 [foz_us] 7.4-10.4 Automated blood neutrophils/100 leukocytes 71 % 42-75 Automated blood lymphocytes/100 leukocytes 14 % 12-44 Blood monocytes/100 leukocytes 10 % 0-12 Automated blood eosinophils/100 leukocytes 4 % 0-10 Automated blood basophils/100 leukocytes 0 % 0-10 Blood neutrophils automated count (number/volume) 8.1 10*3 1.8-7.8 Blood lymphocytes automated count (number/volume) 1.6 10*3 1.0-4.0 Blood monocytes automated count (number/volume) 1. 1 10*3 0.0-1.0 Automated eosinophil count 0.5 10*3/uL 0 .0-0.3 Automated blood basophil count (count/volume) 0.0 10*3/uL 0.0-0.1 Comprehensive metabolic panel - 06/19/19 04:34 Serum or plasma sodium measurement (moles/volume) 141 mmol/L 135-145 Serum or plasma potassium measurement (moles/volume) 4.0 mmol/L 3.6-5.0 Serum or plasma chloride measurement (moles/volume) 108 mmol/L 98-107 Carbon dioxide 21 mmol/L 21-32 Serum or plasma anion gap determination (moles/volume) 12 mmol/L 5-14 Serum or plasma urea nitrogen measurement (mass/volume ) 13 mg/dL 7-18 Serum or plasma creatinine measurement (mass/volume) 1.17 mg/dL 0.60-1.30 Serum or plasma urea nitrogen/creatinine mass ratio 11 NRG Serum or plasma creatinine measurement w ith calculation of estimated glomerular filtration rate 44 NRG Serum or plasma glucose measurement (mass/volume) 125 mg/dL 70-105 Serum or plasma calcium measurement (mass/volume) 9.2 mg/dL 8.5-10.1 Serum or plasma total bilirubin measurement (mass/volu me) 0.5 mg/dL 0.1-1.0 Serum or plasma alkaline phosphatase shani surement (enzymatic activity/volume) 120 U/L 40-136 Serum or plasma aspartate aminotransfera se measurement (enzymatic activity/volume) 23 U/L 5-34 Serum or plasma alanine aminotransferase measurement (enzymatic activity/volume) 14 U/L 0-55 Serum or plasma protein measurement (mass/volume) 6.6 g/dL 6.4-8.2 Serum or plasma albumin measurement (mass/volume) 4.0 g/dL 3.2-4.5 CALCIUM CORRECTED 9.2 mg/dL 8.5-10.1 Serum or plasma C reactive protein measu rement (mass/volume) - 06/19/19 04:34 Serum or plasma C reactive protein measurement (mass/v olume) 0.07 mg/dL 0.00-0.50 Serum or plasma lithium measurement (mol es/volume) - 06/19/19 04:34 BNP PT 262.7 pg/mL <100.0 Influenza virus A and B antigen detectio n - 06/19/19 04:34 FLU RESULT NEGATIVE FOR INFLUENZA A AND B ANTIGENS BY IA [facility] Bordetella pertussis and parapertussis D NA detection - 06/20/19 12:00 Bordetella parapertussis DNA detection b y probe and target amplification method Not Detected Not Detected Bordetella pertussis and parapertussis DNA detection Not Detected Not Detected Sputum Gram stain - 06/21/19 08:50 Sputum Gram stain Mixed bacterial helena [facility] Bacterial sputum culture - 06/21/19 08:5 0 QUANTITY OF GROWTH . [facility] Bacterial sputum culture USUAL RESP [facility] Automated blood complete blood count (he mogram) panel - 06/22/19 05:05 Blood leukocytes automated count (number/volume) 19.8 10*3/uL 4.3-11.0 Blood erythrocytes automated count (number/volume) 4.09 10*6/uL 4.35-5.85 Venous blood hemoglobin measurement (mass/volume) 12.2 g/dL 11.5-16.0 Blood hematocrit (volume fraction) 38 % 35-52 Automated erythrocyte mean corpuscular volume 92 [ foz_us] 80-99 Automated erythrocyte mean corpuscular h emoglobin (mass per erythrocyte) 30 pg 25-34 Automated erythrocyte mean corpuscular h emoglobin concentration measurement (mass/volume) 32 g/dL 32-36 Automated erythrocyte distribution width ratio 14. 6 % 10.0- 14.5 Automated blood platelet count (count/volume) 236 10*3/uL 130-400 Automated blood platelet mean volume measurement 11.2 [foz_us] 7.4-10.4 Whole blood basic metabolic panel - 11/05 05:05 Serum or plasma sodium measurement (moles/volume) 141 mmol/L 135-145 Serum or plasma potassium measurement (moles/volume) 3.6 mmol/L 3.6-5.0 Serum or plasma chloride measurement (moles/volume) 103 mmol/L 98-107 Carbon dioxide 25 mmol/L 21-32 Serum or plasma anion gap determination (moles/volume) 13 mmol/L 5-14 Serum or plasma urea nitrogen measurement (mass/volume ) 15 mg/dL 7-18 Serum or plasma creatinine measurement (mass/volume) 0.93 mg/dL 0.60-1.30 Serum or plasma urea nitrogen/creatinine mass ratio 16 NRG Serum or plasma creatinine measurement w ith calculation of estimated glomerular filtration rate 57 NRG Serum or plasma glucose measurement (mass/volume) 86 mg/dL 70-105 Serum or plasma calcium measurement (mass/volume) 9.4 mg/dL 8.5-10.1 Encounters ACCT No. Visit Date/Time Discharge Status Pt. 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 [id number] 05/12/2019 11:20:00 15:32:00 DIS Outpatient ERASMO BURRELL APRN [facility] [address] ER WEAKNESS [id number] 05/06/2019 20:50:00 11:20:00 DIS Inpatient FRAN PINEDA MD [facility] [address] 4TH BRONCHITIS,HYPOXIA,SEPS IS,HTN [id number] 07/22/2018 10:53:00 23:59:59 CLS Outpatient JAY JAY THOMPSON MD [facility] [address] RAD SCREENING [id number] 05/29/2017 08:02:00 23:59:59 CLS Outpatient JAY JAY THOMPSON MD [facility] [address] SDC ANEMIA [id number] 05/24/2017 16:08:00 11:20:00 DIS Inpatient CHRISTIANO VIZCARRA, GUILLE Krishnamurthy [facility] [address] ICU UGI BLEED [id number] 05/20/2017 14:16:00 23:59:59 CLS Preadmit EMILY CAPELLAN CHEMICAL ANALYTICAL SAMPLER [facility] [address] RAD SCREENING [id number] 05/07/2016 10:11:00 23:59:59 CLS Outpatient IVETTE TORRES MD [facility] [address] RAD SCREENING [id number] 02/18/2016 14:44:00 23:59:59 CLS Outpatient GILLIAN CUNNINGHAM CHEMICAL ANALYTICAL SAMPLER [facility] [address] RAD RLQ PAIN,FLANK PAIN [id number] 12/18/2015 13:19:00 13:51:00 DIS Emergency SABINE FORRESTER DO [facility] [address] ER SUTURE REMOVAL [id number] 12/14/2015 14:23:00 14:38:00 DIS Emergency JOYCE KAPLAN MD [facility] [address] ER SUTURE REMOVAL [id number] 12/02/2015 11:04:00 14:28:00 DIS Emergency CAROLA GRAF [facility] [address] ER FALL [id number] 02/20/2015 12:16:00 015 23:59:59 CLS Outpatient DARRIUS TRIPLETT [facility] [address] RAD SCREENING [id number] 02/15/2014 14:39:00 014 23:59:59 CLS Outpatient JADEN DICKERSON MD [facility] [address] RAD ROUTINE [id number] 04/11/2013 13:58:00 23:59:59 CLS Outpatient JADEN DICKERSON MD [facility] [address] LAB THROMBOCYTOPENI A.LOW PLATELET COUNT [id number] 01/17/2013 13:49:00 23:59:59 CLS Outpatient JADEN DICKERSON MD [facility] [address] RAD SCREENING [id number] 07/21/2012 14:45:00 Document Registration [id number] 06/08/2012 16:57:00 Document Registration [id number] 01/15/2012 10:08:00 Document Registration [id number] 12/26/2010 10:05:00 Document Registration [id number] 12/21/2009 09:49:00 Document Registration
--- OUTSIDE RECORDS SUMMARY | 2019-07-14 06:06 | XMS REPORT | CCD ---
Author Author DoD Organization DoD Address Unknown Phone Unavailable Care Team Providers Care Patternator Name Role Phone Unavailable Unavailable Allergies and Adverse Reactions (C-CDA) Substance Reaction Effective Time Source This section is an empty allergy results section. History Of Immunizations (C-CDA) Vaccine Series # Dosage Date Administered By [employer] Administrator Lot Number CVX Code Refusal Reason This section is an empty immunization se ction. There are multiple immunizations systems within the [facility] ([facility]). All immunizations and exemptions/refusals for this patient that are stored in the [facility]'s Clinical Data Repository (CDR) are included here, but this list is empty. Medications (C-CDA) Product Name RouteOfAdministra tion Timing Qty Order Date Order Qty Status Start Date Expiration Date Last Dispensed Date Discontinued Date Source Dosage BENZONATATE (BENZONATATE), 100MG, CAPSUL E, ORAL, [employer], 100 ea. BOTTLE [id number] 24 Active [id number] [facility] [address] [place] [address] Formulary Units PREDNISONE (prednisone), 20 MG, TABLET, ORAL, [employer], 500 ea. BOTTLE [id number] 4 Active [id number] [facility] [address] [place] [address] Formulary Units AMOXICILLIN (AMOXICILLIN), 500 MG, CAPSULE, ORAL, SAND OZ, 500 ea. BOTTLE [id number] 14 Active 20190525 [facility] [address] [place] [address] Formulary Units COMBIVENT RESPIMAT (IPRATROPIUM/ALBUTERO L SULFATE), 20-100 MCG, MIST INHAL, INHALATION, BOEHRINGER ING., 4 g AER W/ADAP [id number] 4 Active 20190523 [facility] [address] [place] [address] Formulary Units COMBIVENT RESPIMAT (IPRATROPIUM/ALBUTERO L SULFATE), 20-100 MCG, MIST INHAL, INHALATION, BOEHRINGER ING., 4 g AER W/ADAP [id number] 02 4 Active [id number] [facility] [address] Formulary Units MONTELUKAST SODIUM (MONTELUKAST SODIUM), 10 MG, TABLET, ORAL, [employer], 1000 ea. BOTTLE [id number] 30 Active [id number] [facility] ty [address] [place] [address] Formulary Units PREDNISONE (PREDNISONE), 20MG, TABLET, ORAL, SUGAR LA BS., 500 ea. BOTTLE [id number] 10 Active [id number] [facility] [address] [place] [address] Formulary Units AMOXICILLIN (AMOXICILLIN), 500 MG, CAPSULE, ORAL, SAND OZ, 500 ea. BOTTLE [id number] 21 Active [id number] [facility] [address] [place] [address] Formulary Units DOXYCYCLINE HYCLATE (DOXYCYCLINE HYCLATE ), 100 MG, CAPSULE, ORAL, [facility] 500 ea. BOTTLE [id number] 28 Acti ve [id number] Pharmacy Data Transaction Se rvice Facility [address] Formulary Units FLUCONAZOLE (FLUCONAZOLE), 150MG, TABLET , ORAL, [employer]Now PHARMA, 1 ea. BLIST PACK [id number] 4 Active [id number] [facility] [address] [place] [address] Formulary Units BENZONATATE (benzonatate), 200 MG, CAPSU LE, ORAL, [employer]ARMA, 100 ea. BOTTLE [id number] 90 Active [id number] 201 [id number] [facility] [address] [place] [address] Formulary Units ATENOLOL (ATENOLOL), 50MG, TABLET, ORAL, [employer], 1000 ea. BOTTLE [id number] 90 Active [id number] [facility] [address] [place] [address] Formulary Units PANTOPRAZOLE SODIUM (PANTOPRAZOLE SODIUM ), 40 MG, TABLET DR, ORAL, TORRENT PHARMAC, 90 ea. BOTTLE [id number] 90 Active 20181203 [facility] Data Transaction Se rv[facility] Facility [address] [place] [address] Formulary Units SUCRALFATE (sucralfate), 1 G, TABLET, ORAL, [facility] 100 ea. BOTTLE [id number] 360 Active 20181203 [facility] [address] [place] [address] Formulary Units MONTELUKAST SODIUM (MONTELUKAST SODIUM), 10 MG, TABLET, ORAL, [employer], 1000 ea. BOTTLE [id number] 30 Active 20181111 [facility] [address] Formulary Units MONTELUKAST SODIUM (MONTELUKAST SODIUM), 10 MG, TABLET, ORAL, [employer], 1000 ea. BOTTLE [id number] 30 Active 20181111 [facility] [address] Formulary Units MONTELUKAST SODIUM (MONTELUKAST SODIUM), 10 MG, TABLET, ORAL, [employer], 1000 ea. BOTTLE [id number] 30 Active 20181111 [facility] [address] Formulary Units CETIRIZINE HCL (cetirizine HCl), 10 MG, TABLET, ORAL, MAJOR PHARMACEU, 90 ea. BOTTLE [id number] 90 Active 20181110 [facility] [address] Formulary Units ADVAIR DISKUS (FLUTICASONE/SALMETEROL), 250-50MCG, DISK W/DEV, INHALATION, GLAXOSMITHKLINE, 60 ea. BLIST PACK [id number] 18 0 Active 20181110 [facility] Data T ransaction [facility] [address] Formulary Units CETIRIZINE HCL (cetirizine HCl), 10 MG, TABLET, ORAL, MAJOR PHARMACEU, 90 ea. BOTTLE [id number] 90 Active 20181110 [facility] [address] Formulary Units ADVAIR DISKUS (FLUTICASONE/SALMETEROL), 250-50MCG, DISK W/DEV, INHALATION, GLAXOSMITHKLINE, 60 ea. BLIST PACK [id number] 18 0 Active 20181110 [facility] Data T ransaction [facility] [address] Formulary Units PREDNISONE (PREDNISONE), 20MG, TABLET, ORAL, SUGAR LA BS., 500 ea. BOTTLE [id number] 10 Active [id number] [facility] [address] Formulary Units ATENOLOL (ATENOLOL), 50MG, TABLET, ORAL, [employer] EU, 1000 ea. BOTTLE [id number] 30 Active [id number] [facility] [address] [place] [address] Formulary Units ATENOLOL (ATENOLOL), 50MG, TABLET, ORAL, [employer] EU, 1000 ea. BOTTLE [id number] 30 Active [id number] [facility] [address] [place] [address] Formulary Units ATENOLOL (ATENOLOL), 50MG, TABLET, ORAL, [employer]ARM[employer] EU, 1000 ea. BOTTLE [id number] 30 Active [id number] [facility] [address] [place] [address] Formulary Units SIMVASTATIN (simvastatin), 40 MG, TABLET , ORAL, LUPIN PHARMACEU, 1000 ea. BOTTLE [id number] 90 Active [id number] 201 00605 [facility] [address] [place] [address] Formulary Units This section includes all outpatient [...] insurance secti on. This section contains current third-democrat (non-) insurance information as known by the [...]
--- OUTSIDE RECORDS SUMMARY | 2019-07-14 06:06 | XMS REPORT | Continuity of Care Document ---
Author Organization Unknown Address Unknown Phone Unavailable Allergies Active Description Code Type Severity Reaction Onset Reported/Identified Relationship to Patient Clinical Status Yes No Known Drug Allergies [id number] Drug Allergy Unknown N/A 06/19/2019 Medications There [...] W/O STRIKE 12/02/2015 CAROLA GRAF Ot Y92.[address] 12/02/2015 CAROLA GRAF Ot Y99.8 OTHER EXTERNAL CAUSE STATUS 12/02/2015 CAROLA GRAF Ot Z79.82 NURSING HOME (CURRENT) USE OF ASPIRIN 12/04/2015 CAROLA GRAF [...] W/O STRIKE 12/04/2015 CAROLA GRAF Ot Y92.[address] 12/04/2015 CAROLA GRAF Ot Y99.8 OTHER EXTERNAL CAUSE STATUS 12/04/2015 CAROLA GRAF Ot Z79.82 [employer] BOARD PANELS (CURRENT) USE OF ASPIRIN 12/08/2015 CAROLA GRAF [...] W/O STRIKE 12/08/2015 CAROLA GRAF Ot Y92.[address] 12/08/2015 CAROLA GRAF Ot Y99.8 OTHER EXTERNAL CAUSE STATUS 12/08/2015 CAROLA GRAF Ot Z79.82 [employer] BOARD PANELS (CURRENT) USE OF ASPIRIN 12/14/2015 JOYCE KAPLAN MD Ot S61.412D LACERATION WITHOUT [...] MAMMO-MALIGN NEOPLASM OF [place] 02/19/2016 GILLIAN CUNNINGHAM ENGINEERING PSYCHOLOGIST Ot R10.31 RIGHT LOWER QUADRANT PAIN 02/19/2016 GILLIAN CUNNINGHAM ENGINEERING PSYCHOLOGIST Ot R10.84 GENERALIZED ABDOMINAL PAIN 03/11/2016 GILLIAN CUNNINGHAM ENGINEERING PSYCHOLOGIST Ot R10.31 RIGHT LOWER QUADRANT PAIN 03/11/2016 GILLIAN CUNNINGHAM ENGINEERING PSYCHOLOGIST Ot R10.84 GENERALIZED ABDOMINAL PAIN 03/21/2016 GILLIAN CUNNINGHAM ENGINEERING PSYCHOLOGIST Ot R10.31 RIGHT LOWER QUADRANT PAIN 03/21/2016 GILLIAN CUNNINGHAM ENGINEERING PSYCHOLOGIST Ot R10.84 GENERALIZED ABDOMINAL PAIN 05/07/2016 Ot [...] MAMMO-MALIGN NEOPLASM OF [place] 05/07/2016 GILLIAN CUNNINGHAM ENGINEERING PSYCHOLOGIST Ot R10.31 RIGHT LOWER QUADRANT PAIN 05/07/2016 GILLIAN CUNNINGHAM ENGINEERING PSYCHOLOGIST Ot R10.84 GENERALIZED ABDOMINAL PAIN 05/07/2016 IVETTE [...] MAMMO-MALIGN NEOPLASM OF [place] 05/30/2016 GILLIAN CUNNINGHAM ENGINEERING PSYCHOLOGIST Ot R10.31 RIGHT LOWER QUADRANT PAIN 05/30/2016 GILLIAN CUNNINGHAM ENGINEERING PSYCHOLOGIST Ot R10.84 GENERALIZED ABDOMINAL PAIN 05/30/2016 MELISSA ROCK, IVETTE Martinez Ot Z12.31 ENCNTR SCREEN MAMMOGRAM FOR MALIGNANT NE 06/06/2016 Ot V76.12 OTH SCREEN MAMMO- MALIGN NEOPLASM OF [place] 06/06/2016 Ot V76.12 OTH SCREEN MAMMO- MALIGN [...] MAMMO-MALIGN NEOPLASM OF [place] 06/06/2016 GILLIAN CUNNINGHAM ENGINEERING PSYCHOLOGIST Ot R10.31 RIGHT LOWER QUADRANT PAIN 06/06/2016 GILLIAN CUNNINGHAM ENGINEERING PSYCHOLOGIST Ot R10.84 GENERALIZED ABDOMINAL PAIN 06/06/2016 MELISSA [...] MAMMO-MALIGN NEOPLASM OF [place] 08/21/2016 GILLIAN CUNNINGHAM ENGINEERING PSYCHOLOGIST Ot R10.31 RIGHT LOWER QUADRANT PAIN 08/21/2016 GILLIAN CUNNINGHAM ENGINEERING PSYCHOLOGIST Ot R10.84 GENERALIZED ABDOMINAL PAIN 08/21/2016 MELISSA [...] MAMMO-MALIGN NEOPLASM OF [place] 10/01/2016 GILLIAN CUNNINGHAM ENGINEERING PSYCHOLOGIST Ot R10.31 RIGHT LOWER QUADRANT PAIN 10/01/2016 GILLIAN CUNNINGHAM ENGINEERING PSYCHOLOGIST Ot R10.84 GENERALIZED ABDOMINAL PAIN 10/01/2016 MELISSA ROCK, IVETTE Martinez Ot Z12.31 ENCNTR SCREEN MAMMOGRAM FOR MALIGNANT NE 05/21/2017 EMILY CAPELLAN ENGINEERING PSYCHOLOGIST Ot Z12.31 ENCNTR SCREEN MAMMOGRAM FOR MALIGNANT [...] MAMMO-MALIGN NEOPLASM OF [place] 05/24/2017 GILLIAN CUNNINGHAM ENGINEERING PSYCHOLOGIST Ot R10.31 RIGHT LOWER QUADRANT PAIN 05/24/2017 GILLIAN CUNNINGHAM ENGINEERING PSYCHOLOGIST Ot R10.84 GENERALIZED ABDOMINAL PAIN 05/24/2017 MELISSA ROCK, IVETTE Martinez Ot Z12.31 ENCNTR SCREEN MAMMOGRAM FOR MALIGNANT NE 05/24/2017 EMILY CAPELLAN ENGINEERING PSYCHOLOGIST Ot Z12.31 ENCNTR SCREEN MAMMOGRAM FOR MALIGNANT [...] MAMMO-MALIGN NEOPLASM OF [place] 05/24/2017 GILLIAN CUNNINGHAM ENGINEERING PSYCHOLOGIST Ot R10.31 RIGHT LOWER QUADRANT PAIN 05/24/2017 GILLIAN CUNNINGHAM ENGINEERING PSYCHOLOGIST Ot R10.84 GENERALIZED ABDOMINAL PAIN 05/24/2017 MELISSA ROCK, IVETTE Martinez Ot Z12.31 ENCNTR SCREEN MAMMOGRAM FOR MALIGNANT NE 05/24/2017 EMILY CAPELLAN ENGINEERING PSYCHOLOGIST Ot Z12.31 ENCNTR SCREEN MAMMOGRAM FOR MALIGNANT NE 05/24/2017 EMILY CAPELLAN ENGINEERING PSYCHOLOGIST Ot Z12.31 ENCNTR SCREEN MAMMOGRAM FOR MALIGNANT NE 05/25/2017 GUILLE ALVARADO DO Ot I10 ESSENTIAL (PRIMARY) HYPERTENSION 05/25/2017 GUILLE ALVARADO DO Ot I25.2 OLD MYOCARDIAL INFARCTION 05/25/2017 GUILLE ALVARADO DO Ot K92.2 GASTROINTESTINAL HEMORRHAGE, UNSPECIFIED 05/25/2017 GUILLE ALVARADO DO Ot Z79.02 [employer] BOARD PANELS (CURRENT) USE OF ANTITHROMBOTI 05/25/2017 GUILLE ALVARADO DO Ot Z79.82 [employer] BOARD PANELS (CURRENT) USE OF ASPIRIN 05/25/2017 CARRILLO ALVARADO DOI Ot Z79.89 9 OTHER [employer] BOARD PANELS (CURRENT) DRUG THERAPY 05/25/2017 GUILLE ALVARADO DO Ot Z86.73 PRSNL HX OF TIA (TIA), AND CEREB INFRC W 05/25/2017 CHRISTIANO VIZCARRA GUILLE Ot I10 ESSENTIAL (PRIMARY) HYPERTENSION 05/25/2017 CARRILLO ALVARADO DOI Ot I25.2 OLD MYOCARDIAL INFARCTION 05/25/2017 GUILLE ALVARADO DO Ot K92.2 GASTROINTESTINAL HEMORRHAGE, UNSPECIFIED 05/25/2017 GUILLE ALVARADO DO Ot Z79.02 NURSING HOME (CURRENT) USE OF ANTITHROMBOTI 05/25/2017 GUILLE ALVARADO DO Ot Z79.82 [employer] BOARD PANELS (CURRENT) USE OF ASPIRIN 05/25/2017 CARRILLO ALVARADO DOI Ot Z79.89 9 OTHER NURSING HOME (CURRENT) DRUG THERAPY 05/25/2017 GUILLE ALVARADO DO [...] MAMMO-MALIGN NEOPLASM OF [place] 05/29/2017 GILLIAN CUNNINGHAM ENGINEERING PSYCHOLOGIST Ot R10.31 RIGHT LOWER QUADRANT PAIN 05/29/2017 GILLIAN CUNNINGHAM ENGINEERING PSYCHOLOGIST Ot R10.84 GENERALIZED ABDOMINAL PAIN 05/29/2017 MELISSA [...] SCREEN MAMMO-MALIGN NEOPLASM OF [place] 07/22/2018 IOANADARRIUS FISH BAIT PROCESSING SUPERVISOR Ot V76.12 OTH SCREEN MAMMO-MALIGN NEOPLASM OF [place] 07/22/2018 GILLIAN CUNNINGHAM ENGINEERING PSYCHOLOGIST Ot R10.31 RIGHT LOWER QUADRANT PAIN 07/22/2018 YOVANI CUNNINGHAMJANIE Mcgrath ENGINEERING PSYCHOLOGIST Ot R10.84 GENERALIZED ABDOMINAL PAIN 07/22/2018 MELISSA [...] Ot I25. 10 ATHSCL HEART DISEASE OF [place] CORONARY 05/10/2019 FRAN PINEDA MD Ot I25. [...] Ot I25. 10 ATHSCL HEART DISEASE OF [place] CORONARY 05/10/2019 FRAN PINEDA MD, Ot I25. [...] Ot I25. 10 ATHSCL HEART DISEASE OF [place] CORONARY 05/16/2019 VERONICA MANE MD, Ot I25. [...] APRN Ot I25.10 ATHSCL HEART DISEASE OF [place] CORONARY 05/17/2019 ERASMO BURRELL APRN Ot K59.00 CONSTIPATION, UNSPECIFIED 05/17/2019 ERASMO BURRELL APRN Ot N39 .0 URINARY TRACT INFECTION, SITE NOT SPECIF 05/17/2019 ERASMO BURRELL APRN Ot R10.31 RIGHT LOWER QUADRANT PAIN 05/17/2019 ERASMO BURRELL APRN Ot Z79.51 [employer] BOARD PANELS (CURRENT) USE OF INHALED STERO 05/17/2019 ERASMO BURRELL APRN Ot Z79.82 PL[employer] BOARD PANELS (CURRENT) USE OF ASPIRIN 05/17/2019 ERASMO BURRELL [...] Ot I25. 10 ATHSCL HEART DISEASE OF [place] CORONARY 06/22/2019 FRAN PINEDA MD Ot I25. [...] ABO+Rh group AN NRG Transfusion band number [id number] NRG Blood group antibody screen NEGATIVE NR [...] LEUKO REDUCED AS1 T RANSFUSED 05/29/17 1244 [facility] Blood type T Indirect antibody screen pa ruben - 05/29/17 08:24 ABO+Rh group AN [facility] Transfusion band number [id number] [facility] Blood group antibody screen NEGATIVE NR G [...] culture - 05/12/19 11:30 Bacterial urine culture [id number] NRG COLONY COUNT 40,000 CFU/ML NRG FTX;REPORTABLE [...] INFLUENZA A AND B ANTIGENS BY IA [facility] Bordetella pertussis and parapertussis D NA detection - 06/20/19 12:00 Bordetella parapertussis DNA detection b y probe and target amplification method Not Detected Not Detected Bordetella pertussis and parapertussis DNA detection Not Detected Not Detected Sputum Gram stain - 06/21/19 08:50 Sputum Gram stain Mixed bacterial helena [facility] Bacterial sputum culture - 06/21/19 08:5 0 QUANTITY OF GROWTH . [facility] Bacterial sputum culture USUAL RESP [facility] Automated blood complete blood count (he mogram) [...] Status Pt. 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 [id number] 05/12/2019 11:20:00 15:32:00 DIS Outpatient ERASMO BURRELL APRN [facility] ER WEAKNESS [id number] 05/06/2019 20:50:00 11:20:00 DIS Inpatient FRAN PINEDA MD [facility] 4TH BRONCHITIS,HYPOXIA,SEPS IS,HTN [id number] 07/22/2018 10:53:00 23:59:59 CLS Outpatient JAY JAY THOMPSON MD [facility] RAD SCREENING [id number] 05/29/2017 08:02:00 23:59:59 CLS Outpatient JAY JAY THOMPSON MD [facility] SDC ANEMIA [id number] 05/24/2017 16:08:00 11:20:00 DIS Inpatient CHRISTIANO VIZCARRA, GUILLE Krishnamurthy [facility] ICU UGI BLEED [id number] 05/20/2017 14:16:00 23:59:59 CLS Preadmit EMILY CAPELLAN ENGINEERING PSYCHOLOGIST [facility] RAD SCREENING [id number] 05/07/2016 10:11:00 23:59:59 CLS Outpatient IVETTE TORRES MD [facility] RAD SCREENING [id number] 02/18/2016 14:44:00 23:59:59 CLS Outpatient GILLIAN CUNNINGHAM ENGINEERING PSYCHOLOGIST [facility] RAD RLQ PAIN,FLANK PAIN [id number] 12/18/2015 13:19:00 13:51:00 DIS Emergency SABINE FORRESTER DO [facility] ER SUTURE REMOVAL [id number] 12/14/2015 14:23:00 14:38:00 DIS Emergency JOYCE KAPLAN MD [facility] ER SUTURE REMOVAL [id number] 12/02/2015 11:04:00 14:28:00 DIS Emergency CAROLA GRAF [facility] ER FALL [id number] 02/20/2015 12:16:00 015 23:59:59 CLS Outpatient DARRIUS TRIPLETT [facility] RAD SCREENING [id number] 02/15/2014 14:39:00 014 23:59:59 CLS Outpatient JADEN DICKERSON MD [facility] RAD ROUTINE [id number] 04/11/2013 13:58:00 23:59:59 CLS Outpatient JADEN DICKERSON MD [facility] LAB THROMBOCYTOPENI A.LOW PLATELET COUNT [id number] 01/17/2013 13:49:00 23:59:59 CLS Outpatient JADEN DICKERSON MD [facility] RAD SCREENING [id number] 07/21/2012 14:45:00 Document Registration [id number] 06/08/2012 16:57:00 Document Registration [id number] 01/15/2012 10:08:00 Document Registration [id number] 12/26/2010 10:05:00 Document Registration [id number] 12/21/2009 09:49:00 Document Registration
== END 2019-06-22 13:00 | DRG 192 ==
LOC: EDUNIT# 04:29 → ER 04:30 → 4TH 05:49
PROVIDERS: ADMIT Internal Medicine; ATTEND Internal Medicine
DX: J44.1 Chronic obstructive pulmonary disease with (acute) exacerbation (principal); J32.9 Chronic sinusitis, unspecified; R09.02 Hypoxemia; I11.9 Hypertensive heart disease without heart failure; I25.10 Atherosclerotic heart disease of native coronary artery without angina pectoris; I25.2 Old myocardial infarction; I07.1 Rheumatic tricuspid insufficiency; Z86.73 Personal history of transient ischemic attack (TIA), and cerebral infarction without residual deficits
CPT/HCPCS: 36415; 71045; 80048; 80053; 83880; 85025; 85027; 86141; 87070; 87205; 87798; 87804; 93005; 93041; 93306; 94010; 94640; 94760; 96374; 96375

== ENCOUNTER 2019-08-11 19:32 | Inpatient (IN) | payer MEDICARE, OTHER ==
[~2019-08-11] VITALS: Ht 165.1 cm; Wt 51.9 kg
[~2019-08-11 19:32] MED LIST changes: +CALC1TAB29 PO; +FLUT9.9S NS; +IPRA4AER IH; +MULT-974 PO; +PRD20T PO; +SIMV40TA25 PO; -SIMV40TA4 PO; +SODI30SP2 NSEACH
[2019-08-11] MEDS ORDERED: NS IV 1000 ML 1,000 ML IV SCH (19:37)
[2019-08-11] MEDS ORDERED: RT-ALBUTEROL/IPRATROPIUM 3 ML (DUONEB) VIAL INH ONE (19:45)
[2019-08-11] MEDS ORDERED: cefTRIAXone FOR IV USE 1,000 MG in WATER (STERILE) FOR INJECTION 10 ML IV ONE (19:45)
[2019-08-11] MEDS ORDERED: AZITHROMYCIN INJECTION 500 MG in NS (IVPB) 250 ML IV ONE (19:45)
[2019-08-11] MEDS ORDERED: DEXAMETHASONE 4 MG/ML SDV (DECADRON) IH ONE (19:45)
[2019-08-11] MEDS ORDERED: methylPREDNISolone 125 MG (Solu-MEDROL) VIAL IV STA (19:45)
[2019-08-11 19:55] LABS: BASOPHILS % (AUTO) 0 % (0-10); EOSINOPHILS # (AUTO) 0.4 10^3/uL (0.0-0.3); EOSINOPHILS % (AUTO) 3 % (0-10); HEMATOCRIT 44 % (35-52); HEMOGLOBIN 14.6 G/DL (11.5-16.0); LYMPHOCYTES # (AUTO) 1.9 X 10^3 (1.0-4.0); LYMPHOCYTES % (AUTO) 16 % (12-44); MEAN CORPUSCULAR HEMOGLOBIN 30 PG (25-34); MEAN CORPUSCULAR HGB CONC 34 G/DL (32-36); MEAN CORPUSCULAR VOLUME 88 FL (80-99); MONOCYTES # (AUTO) 0.5 X 10^3 (0.0-1.0); MONOCYTES % (AUTO) 4 % (0-12); NEUTROPHILS # (AUTO) 9.1 X 10^3 (1.8-7.8); NEUTROPHILS % (AUTO) 77 % (42-75); PLATELET COUNT 262 10^3/uL (130-400); RED CELL DISTRIBUTION WIDTH 14.1 % (10.0-14.5); WHITE BLOOD COUNT 11.9 10^3/uL (4.3-11.0)
[2019-08-11 20:01] LABS: INR 0.9 (0.8-1.4); PROTHROMBIN TIME PATIENT 12.7 SEC (12.2-14.7)
[2019-08-11 20:09] LABS: ALANINE AMINOTRANSFERASE 14 U/L (0-55); ALBUMIN 4.2 GM/DL (3.2-4.5); ALKALINE PHOSPHATASE 143 U/L (40-136); BILIRUBIN,TOTAL 0.3 MG/DL (0.1-1.0); BUN/CREATININE RATIO 18; CALCIUM 9.9 MG/DL (8.5-10.1); CARBON DIOXIDE 18 MMOL/L (21-32); CHLORIDE 104 MMOL/L (98-107); CREATININE SERUM 1.16 MG/DL (0.60-1.30); GFR ESTIMATED 44; GLUCOSE 111 MG/DL (70-105); MAGNESIUM 1.3 MG/DL (1.6-2.4); POTASSIUM 3.6 MMOL/L (3.6-5.0); SODIUM 141 MMOL/L (135-145); TOTAL PROTEIN 7.6 GM/DL (6.4-8.2)
[2019-08-11] MEDS ORDERED: OSELTAMIVIR 75 MG (TAMIFLU) CAPSULE PO ONE (20:15)
[2019-08-11] MEDS ORDERED: D5 1/2 NS W/KCL 20 MEQ/L 1,000 ML IV SCH (20:30)
[2019-08-11] MEDS: MAGNESIUM 1 GM/100 ML IVPB 100 ML IV SCH ×2 (20:48→21:46)
--- NOTE | 2019-08-11 20:51 | Diagnostic Imaging Report ---
CHEST 1 VIEW, AP/PA ONLY Indication: Chest pain. Comparison: 07/09/2019 Findings: No focal airspace disease in the visualized lungs. Please note that the posterior lower lobes are poorly evaluated by portable radiography. No pleural effusion or pneumothorax. Normal cardiomediastinal silhouette. Impression: 1. No acute cardiopulmonary process by portable radiography. Dictated by: Dictated on workstation # [id number]
--- NOTE | 2019-08-11 21:00 | ED Cough/URI ---
General Chief Complaint: Cough/Cold/Flu Symptoms Stated Complaint: SOB Nursing Triage Note: PT TO [facility] FROM HOME WITH CC OF FLU LIKE S/S, CONGESTION SINCE AND RUNNING A FEVER. Sepsis Screen: Possible Severe Sepsis Risk Source: patient (SOMEWHAT LIMITED HISTORIAN) History of Present Illness Date Seen by Provider: Aug 11, 2019 Time Seen by Provider: 19:32 Initial Comments PT ARRIVES VIA EMS FROM HOME--PT LIVES AT HOME ALONE STATES SHE HAS BEEN "SICK SINCE " WITH COUGH AND CONGESTION--STATES SHE WAS DX WITH BRONCHITIS AROUND , AND WAS PRESCRIBED AN ANTIBIOTIC STATES SHE "KEEPS GETTING WORSE ALL THE TIME" STATES SHE HAS BEEN RUNNING A FEVER, BUT HAS NOT CHECKED TEMP HAS HAD A PRODUCTIVE COUGH AND SEVERE NASAL CONGESTION AND CLEAR DRAINAGE NO CHEST PAIN OR SHORTNESS OF BREATH NO SWELLING IN FEET OR ANKLES ON FURTHER SPECIFIC QUESTIONING, PT STATES MOST OF HER SYMPTOMS ACTUALLY JUST STARTED TODAY--PRODUCTIVE COUGH, INCREASED NASAL CONGESTION AND DRAINAGE, AND FEVER ALL BEGAN TODAY SHE ALSO REPORTS THAT TODAY SHE WAS TOO WEAK TO WALK, SO CALLED EMS. HAS TAKEN OVER THE COUNTER COUGH AND CONGESTION MEDICATION WITHOUT IMPROVEMENT PT DENIES ANY KNOWN SICK CONTACTS PT DID RECEIVE HER INFLUENZA VACCINE THIS SEASON DUE NEB GIVEN BY EMS ENROUTE Allergies and Home Medications Allergies Coded Allergies: No Known Drug Allergies (Unverified , 06/19/19) Home Medications Albuterol/Ipratropium 4 Gm Aero, 1 PUFF IH Q6H PRN for SHORTNESS OF BREATH, (Reported) Aspirin 81 Mg Tablet.dr, 81 MG PO HS, (Reported) Atenolol 50 Mg Tablet, 50 MG PO HS, (Reported) Benzonatate 100 Mg Capsule, 100 MG PO TID PRN for cough Prescribed by: VERONICA MANE on 06/22/19 0919 Cetirizine HCl 10 Mg Capsule, 10 MG PO HS, (Reported) Fluticasone Propionate 9.9 Ml Temperance.susp, 1 SPRAY NS DAILY PRN for CONGESTION, (Reported) Fluticasone/Salmeterol 1 Each Blst.w.dev, 1 PUFF IH BID, (Reported) Lisinopril 10 Mg Tablet, 10 MG PO HS, (Reported) LAST FILLED 02-10-2019 #90 Montelukast Sodium 10 Mg Tablet, 10 MG PO HS, (Reported) Multivitamin 1 Each Tablet, 1 EACH PO DAILY, (Reported) Pantoprazole Sodium 40 Mg Tablet.dr, 40 MG PO DAILY, (Reported) Prednisone 20 Mg Tab, 40 MG PO DAILY@0700 Prescribed by: VERONICA MANE on 06/22/19918 Simvastatin 40 Mg Tablet, 40 MG PO HS, (Reported) LAST FILLED 01-25-2019 #90 Sodium Chloride 30 Ml Temperance, 1 SPR NSEACH BID PRN for DRY NOSE, (Reported) Vit C/E/Zn/Coppr/Lutein/Zeaxan 1 Each Capsule, 1 EACH PO BID, (Reported) Patient Home Medication List Home Medication List Reviewed: Yes Review of Systems Review of Systems Constitutional: see HPI, fever, malaise, weakness EENTM: see HPI, nose congestion (AND CLEAR DRAINAGE) Respiratory: see HPI, cough; No short of breath, No wheezing Cardiovascular: no symptoms reported; No chest pain, No edema Gastrointestinal: no symptoms reported; No diarrhea, No vomiting Genitourinary: no symptoms reported Musculoskeletal: no symptoms reported Skin: no symptoms reported Psychiatric/Neurological: No Symptoms Reported Hematologic/Lymphatic: No Symptoms Reported Immunological/Allergic: no symptoms reported Past Xrzgomz-Lzznjb-Bpowwz Hx Past Med/Social Hx: Reviewed and Corrections made Patient Social History Alcohol Use: Denies Use Recreational Drug Use: No Smoking Status: Never a Smoker 2nd Hand Smoke Exposure: No Recent Foreign Travel: No Contact w/Someone Who Travel: No Recent Infectious Disease Expo: No Recent Hopitalizations: No Physical Abuse: No Sexual Abuse: No Mistreated: No Fear: No Immunizations Up To Date Tetanus Booster (TDap): More than 5yrs PED Vaccines UTD: Yes Date of Pneumonia Vaccine: Apr 19, 2016 Date of Influenza Vaccine: May 10, 2019 Seasonal Allergies Seasonal Allergies: Yes Past Medical History Surgeries: Yes Cardiac, Gallbladder, Hysterectomy Respiratory: Yes (BRONCHITIS) Currently Using CPAP: No Currently Using BIPAP: No Cardiac: Yes Coronary Artery Disease, Heart Attack, High Cholesterol, Hypertension 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 PT REFUSED EGD.) Gastrointestinal Bleed Musculoskeletal: No Endocrine: No HEENT: No Cancer: No Psychosocial: No Integumentary: No Blood Disorders: No Family Medical History Congenital heart disease 19 FATHER G8 BROTHER FH: breast cancer G8 SISTER Physical Exam Vital Signs - First Documented 08/11/19 08/11/19 19:32 19:36 Temp 37.2 Pulse 100 Resp 20 B/P (MAP) 111/86 (94) Pulse Ox 93 O2 Delivery Nasal Cannula O2 Flow Rate 2.00 Capillary Refill : Less Than 3 Seconds Height: 5'5.00" Weight: 119lbs. 9.0oz. 54.889815co; 20.00 BMI Method:Stated General Appearance: WD/WN, no apparent distress, other (MILDLY LETHARGIC) HEENT: PERRL/EOMI, other (MARKED NASAL CONGESTION AND PROFUSE CLEAR RHINORRHEA) Neck: normal inspection Respiratory: no respiratory distress, no accessory muscle use, wheezing (BILATERAL EXPIRATORY WHEEZING), other (FREQUENT LOOSE COUGH) Cardiovascular: regular rate, rhythm, no murmur Gastrointestinal: non tender, soft Extremities: normal inspection, no pedal edema, no calf tenderness, normal capillary refill Neurologic/Psychiatric: sales account director II-XII nml as tested, no motor/sensory deficits, alert, normal mood/affect, oriented x 3 Skin: normal color, warm/dry; No rash Focused Exam Lactate Level 08/11/19 19:39: Lactic Acid Level 2.00 Lactic Acid Level Laboratory Tests Test 08/11/19 19:39 Lactic Acid Level 2.00 MMOL/L (0.50-2.00) Progress/Results/Core Measures Suspected Sepsis Recent Fever Within 48 Hours: Yes Infection Criteria Present: Suspected New Infection New/Unexplained Altered Menta: No Sepsis Screen: Possible Severe Sepsis Risk SIRS Temperature: Pulse: 100 Respiratory Rate: 20 Laboratory Tests 08/11/19 19:39: White Blood Count 11.9H Blood Pressure 111 /86 Mean: 94 08/11/19 19:39: Lactic Acid Level 2.00 Laboratory Tests 08/11/19 19:39: Creatinine 1.16, INR Comment 0.9, Platelet Count 262, Total Bilirubin 0.3 Results/Orders Lab Results Laboratory Tests Test 08/11/19 19:39 08/11/19 20:51 Range/Units White Blood Count 11.9 H 4.3-11.0 10^3/uL Red Blood Count 4.95 4.35-5.85 10^6/uL Hemoglobin 14.6 11.5-16.0 G/DL Hematocrit 44 35-52 % Mean Corpuscular Volume 88 80-99 FL Mean Corpuscular Hemoglobin 30 25-34 PG Mean Corpuscular Hemoglobin Concent 34 32-36 G/DL Red Cell Distribution Width 14.1 10.0-14.5 % Platelet Count 262 130-400 10^3/uL Mean Platelet Volume 11.0 H 7.4-10.4 FL Neutrophils (%) (Auto) 77 H 42-75 % Lymphocytes (%) (Auto) 16 12-44 % Monocytes (%) (Auto) 4 0-12 % Eosinophils (%) (Auto) 3 0-10 % Basophils (%) (Auto) 0 0-10 % Neutrophils # (Auto) 9.1 H 1.8-7.8 X 10^3 Lymphocytes # (Auto) 1.9 1.0-4.0 X 10^3 Monocytes # (Auto) 0.5 0.0-1.0 X 10^3 Eosinophils # (Auto) 0.4 H 0.0-0.3 10^3/uL Basophils # (Auto) 0.0 0.0-0.1 10^3/uL Prothrombin Time 12.7 12.2-14.7 SEC INR Comment 0.9 0.8-1.4 Activated Partial Thromboplast Time 32 24-35 SEC Sodium Level 141 135-145 MMOL/L Potassium Level 3.6 3.6-5.0 MMOL/L Chloride Level 104 98-107 MMOL/L Carbon Dioxide Level 18 L 21-32 MMOL/L Anion Gap 19 H 5-14 MMOL/L Blood Urea Nitrogen 21 H 7-18 MG/DL Creatinine 1.16 0.60-1.30 MG/DL Estimat Glomerular Filtration Rate 44 BUN/Creatinine Ratio 18 Glucose Level 111 H 70-105 MG/DL Lactic Acid Level 2.00 0.50-2.00 MMOL/L Calcium Level 9.9 8.5-10.1 MG/DL Corrected Calcium 9.7 8.5-10.1 MG/DL Magnesium Level 1.3 L 1.6-2.4 MG/DL Total Bilirubin 0.3 0.1-1.0 MG/DL Aspartate Amino Transf (AST/SGOT) 23 5-34 U/L Alanine Aminotransferase (ALT/SGPT) 14 0-55 U/L Alkaline Phosphatase 143 H 40-136 U/L Troponin I < 0.028 <0.028 NG/ML B-Type Natriuretic Peptide 63.5 <100.0 PG/ML Total Protein 7.6 6.4-8.2 GM/DL Albumin 4.2 3.2-4.5 GM/DL Urine Color YELLOW Urine Clarity CLEAR Urine pH 5.0 5-9 Urine Specific [place] >=1.030 1.016-1.022 Urine Protein 2+ H NEGATIVE Urine Glucose (UA) NEGATIVE NEGATIVE Urine Ketones 1+ H NEGATIVE Urine Nitrite NEGATIVE NEGATIVE Urine Bilirubin 1+ H NEGATIVE Urine Urobilinogen 0.2 < = 1.0 MG/DL Urine Leukocyte Esterase NEGATIVE NEGATIVE Urine RBC (Auto) NEGATIVE NEGATIVE Urine RBC 0-2 /HPF Urine WBC 2-5 /HPF Urine Crystals NONE /LPF Urine Bacteria TRACE /HPF Urine Casts PRESENT /LPF Urine Hyaline Casts 2-5 H /LPF Urine Mucus NEGATIVE /LPF Urine Culture Indicated NO Micro Results Microbiology 08/11/19 Influenza Types A,B Antigen (RHONDA) - Final, Complete My Orders Orders - NICOLETTE THOMAS DO Cbc With Automated Diff (08/11/19 19:37) Comprehensive Metabolic Panel (08/11/19 19:37) Blood Culture (08/11/19 19:37) Sputum Culture (08/11/19 19:37) Urinalysis (08/11/19 19:37) Urine Culture (08/11/19 19:37) Protime With Inr (08/11/19 19:37) Partial Thromboplastin Time (08/11/19 19:37) Chest 1 View, Ap/Pa Only (08/11/19 19:37) Ed Iv/Invasive Line Start (08/11/19 19:37) Ed Iv/Invasive Line Start (08/11/19 19:37) Ekg Tracing (08/11/19 19:37) Troponin I (08/11/19 19:37) Vital Signs Adult Sepsis Patie Q15M (08/11/19 19:37) O2 (08/11/19 19:37) Remove Rings In Anticipation O (08/11/19 19:37) Lactic Acid Analyzer (08/11/19 19:37) Influenza A And B Antigens (08/11/19 19:37) Ceftriaxone For Iv Use (Rocephin For I (08/11/19 19:45) Azithromycin Injection (Zithromax Inject (08/11/19 19:45) BNP (08/11/19 19:37) Magnesium (08/11/19 19:37) Ed Iv/Invasive Line Start (08/11/19 19:37) Ns Iv 1000 Ml (Sodium Chloride 0.9%) (08/11/19 19:37) Albuterol/Ipra Inhalation Soln (Duoneb I (08/11/19 19:45) Dexamethasone Injection (Decadron Inject (08/11/19 19:45) Rt Request For Service (08/11/19 19:45) Methylprednisolone Sod Succ (Solu-Medrol (08/11/19 19:45) Svn Small Volume Nebulizer (08/11/19 19:45) Monitor-Rhythm Ecg Trace Only (08/11/19 19:45) Straight Cath For Spec.-Adult (08/11/19 20:06) Oseltamivir 75 Mg Capsule (Tamiflu 75 (08/11/19 20:15) Magnesium 1 Gm/100 Ml Ivpb (Magnesium Davis (08/11/19 20:30) D5 1/2 Ns W/Kcl 20 Meq/L (Dextrose 5%/0. (08/11/19 20:30) Medications Given in ED Current Medications Medications Dose Ordered Sig/Rigo Route Start Time Stop Time Status Last Admin Dose Admin Albuterol/ Ipratropium 3 ml ONCE ONCE INH 08/11/19 19:45 08/11/19 19:46 DC 08/11/19 20:18 3 ML Azithromycin 500 mg/Sodium Chloride 250 ml @ 250 mls/hr ONCE ONCE IV 08/11/19 19:45 08/11/19 20:44 DC 08/11/19 20:28 250 MLS/HR Ceftriaxone Sodium 1000 mg/ Sterile Water 10 ml @ 200 mls/hr ONCE ONCE IV 08/11/19 19:45 08/11/19 19:47 DC 08/11/19 20:27 200 MLS/HR Dexamethasone Sodium Phosphate 20 mg ONCE ONCE IH 08/11/19 19:45 08/11/19 19:46 DC 08/11/19 20:18 20 MG Oseltamivir Phosphate 75 mg ONCE ONCE PO 08/11/19 20:15 08/11/19 20:16 DC 08/11/19 20:31 75 MG Vital Signs/I&O 08/11/19 08/11/19 08/11/19 08/11/19 19:32 19:36 19:39 20:19 Temp 37.2 Pulse 100 Resp 20 B/P (MAP) 111/86 (94) Pulse Ox 93 94 O2 Delivery Nasal Cannula Room Air Nasal Cannula O2 Flow Rate 2.00 2.00 2.00 Capillary Refill : Less Than 3 Seconds Blood Pressure Mean: 94 Progress Note : Progress Note GIVEN DUONEB TREATMENT AND PLACED ON O2--INCREASED AERATION, DECREASED WHEEZING, AND IMPROVED O2 SATS--UP TO UPPER 90'S FROM INITIAL O2 SAT OF 92-93% ON ROOM AIR ON ARRIVAL GIVEN SOLU-MEDROL, ALSO GIVEN MAGNESIUM, AND FIRST DOSE OF TAMIFLU NO DETERIORATION IN PT'S CONDITION DURING ER STAY ECG Initial ECG Impression Date: Aug 11, 2019 Initial ECG Impression Time: 19:48 Initial ECG Rate: 91 Initial ECG Rhythm: Normal Sinus Initial ECG Impression: Nonspecific Changes Diagnostic Imaging Comments CXR--NO ACUTE PROCESS, PER RADIOLOGIST REPORT AT 2100 Reviewed: Reviewed by Me Departure Communication (Admissions) 2107--SPOKE WITH DR. ALVARADO, HOSPITALIST, ACCEPTS PT FOR ADMIT Impression Primary Impression: Influenza B Additional Impressions: Hypoxia Generalized weakness Hypomagnesemia Mild dehydration Disposition: ADMITTED INPATIENT Condition: Stable Admissions Decision to Admit Reason: Admit from ER (General) Decision to Admit/Date: Aug 11, 2019 Time/Decision to Admit Time: 21:10 Departure-Patient Inst. Referrals: JAY JAY THOMPSON MD (PCP/Family) Primary Care Physician NICOLETTE THOMAS DO Aug 11, 2019 21:00
[2019-08-11 21:02] LABS: CLARITY,URINE CLEAR; COLOR,URINE YELLOW; GLUCOSE, URINE (UA) NEGATIVE (NEGATIVE); KETONES,URINE 1+ (NEGATIVE); LEUKOCYTE ESTERASE ,URINE NEGATIVE (NEGATIVE); NITRITE,URINE NEGATIVE (NEGATIVE); PROTEIN,URINE 2+ (NEGATIVE)
[2019-08-11 21:34] LABS: BACTERIA,URINE TRACE /HPF; RBC,URINE 0-2 /HPF
[2019-08-11 21:35] LABS: BILIRUBIN,URINE 1+ (NEGATIVE)
[2019-08-11 22:00] VITALS: BP 161/82
--- NOTE | 2019-08-11 22:05 | NUR ---
MARV CUEVAS admitted to room 407-1, with an admitting diagnosis of Influenza B, Hypoxia, Generalized Weakness, and Hypomagnesemia on 08/11/19 from ED via cart, accompanied by staff.MARV CUEVAS introduced to surroundings, call light, bed controls, phone, TV, temperature control, lights, meal times, smoking policy, visitor policy, side rail policy, bathrooms and showers. Patient Rights given to patient in the handbook. MARV CUEVSA verbalizes understanding that [facility] is not responsible for the loss or damage to any personal effects or valuables that are kept in the patients posession during their hospitalization.
[2019-08-11] MEDS ORDERED: ACETAMINOPHEN 500 MG TAB (TYLENOL) PO PRN (23:45)
[2019-08-11] MEDS: BENZONATATE 100 MG (TESSALON) CAPSULE PO SCH (23:59)
[2019-08-12] VITALS (7 sets, daily range): BP systolic 128–148; BP diastolic 66–74
[2019-08-12] MEDS: methylPREDNISolone 125 MG (Solu-MEDROL) VIAL IVP SCH ×2 (02:27→07:52)
[2019-08-12 06:40] LABS: BASOPHILS % (AUTO) 0 % (0-10); EOSINOPHILS # (AUTO) 0.1 10^3/uL (0.0-0.3); EOSINOPHILS % (AUTO) 0 % (0-10); HEMATOCRIT 35 % (35-52); HEMOGLOBIN 11.8 G/DL (11.5-16.0); LYMPHOCYTES # (AUTO) 0.8 X 10^3 (1.0-4.0); LYMPHOCYTES % (AUTO) 6 % (12-44); MEAN CORPUSCULAR HEMOGLOBIN 30 PG (25-34); MEAN CORPUSCULAR HGB CONC 34 G/DL (32-36); MEAN CORPUSCULAR VOLUME 88 FL (80-99); MEAN PLATELET VOLUME 10.9 FL (7.4-10.4); MONOCYTES # (AUTO) 0.1 X 10^3 (0.0-1.0); MONOCYTES % (AUTO) 1 % (0-12); NEUTROPHILS # (AUTO) 11.8 X 10^3 (1.8-7.8); NEUTROPHILS % (AUTO) 93 % (42-75); PLATELET COUNT 220 10^3/uL (130-400); RED CELL DISTRIBUTION WIDTH 13.6 % (10.0-14.5); WHITE BLOOD COUNT 12.7 10^3/uL (4.3-11.0)
[2019-08-12] MEDS: D5 1/2 NS W/KCL 20 MEQ/L 1,000 ML IV SCH ×3 (06:49→20:03)
[2019-08-12 07:03] LABS: BAND NEUTROPHILS 0 %; BASOPHILS % (MANUAL) 0 %; EOSINOPHILS % (MANUAL) 0 %; LYMPHOCYTES % (MANUAL) 4 %; MONOCYTES % (MANUAL) 0 %; NEUTROPHILS % (MANUAL) 96 %
[2019-08-12 07:04] LABS: ALANINE AMINOTRANSFERASE 12 U/L (0-55); ALBUMIN 3.3 GM/DL (3.2-4.5); ALKALINE PHOSPHATASE 112 U/L (40-136); BILIRUBIN,TOTAL 0.1 MG/DL (0.1-1.0); BUN/CREATININE RATIO 16; CALCIUM 8.1 MG/DL (8.5-10.1); CARBON DIOXIDE 18 MMOL/L (21-32); CHLORIDE 107 MMOL/L (98-107); CREATININE SERUM 0.83 MG/DL (0.60-1.30); GFR ESTIMATED > 60; GLUCOSE 266 MG/DL (70-105); MAGNESIUM 1.7 MG/DL (1.6-2.4); POTASSIUM 3.7 MMOL/L (3.6-5.0); RBC MORPH NORMAL; SODIUM 136 MMOL/L (135-145); TOTAL PROTEIN 5.9 GM/DL (6.4-8.2)
[2019-08-12] MEDS ORDERED: RT-ALBUTEROL SULF 2.5 MG/3 ML PRE-MIX VIAL INH PRN (07:15)
[2019-08-12] MEDS: BENZONATATE 100 MG (TESSALON) CAPSULE PO SCH ×3 (07:52→23:50)
[2019-08-12] MEDS: OSELTAMIVIR 30 MG (TAMIFLU) CAPSULE PO SCH (07:52)
[2019-08-12] MEDS: ENOXAPARIN 30 MG/0.3 ML (LOVENOX) SYR SC SCH (07:53)
[2019-08-12] MEDS: RT-ALBUTEROL SULF 2.5 MG/3 ML PRE-MIX VIAL INH SCH ×3 (09:13→20:17)
[2019-08-12] MEDS ORDERED: MONT10TA24 PO (10:57)
[2019-08-12] MEDS ORDERED: SUCR1TAB PO (10:57)
[2019-08-12] MEDS ORDERED: CETI10TA17 PO (10:57)
--- NOTE | 2019-08-12 11:00 | NUR ---
NOVALOG WAS GIVEN AT THIS TIME BECAUSE THERE WAS NO ORDER FOR ACCUCHECK ON THIS PATIENT
[2019-08-12] MEDS ORDERED: BIMA2.5D4 OD (12:05)
[2019-08-12] MEDS ORDERED: NASAL RINSE NS (12:05)
[2019-08-12] MEDS ORDERED: POTA10TA36 PO (12:08)
--- NOTE | 2019-08-12 12:12 | NUR ---
WENT OVER THE EXT MED HX WITH THE PATIENT AND SHE VERIFIED HOW SHE TAKES THEM. SHE STATES SHE IS OUT OF HER SIMVASTATIN, LISINOPRIL, AND ATENOLOL. SHE WAS PAST DUE FOR REFILL THE LAST TIME SHE WAS ADMITTED WELL. SHE HAS NOT FILLED THESE SINCE BEING DISCHARGED. SHE STATES MAIL ORDER HAS NOT SENT THEM OUT AND SHE HAS NOT TAKEN THE TIME TO LOOK UP THE PHONE NUMBER TO CALL- I HAVE NOTED THE PAST DUE FILL DATES ON THE MED REC. SHE FILLS SOME OF HER MEDS AT [facility]. AND THEY ARE SHOWN ON THE EXT MED HX. SHE HAS RECEIVED LUMIGAN EYE DROPS A SAMPLE FROM [facility] IN [place] - SHE USES 1 DROP IN HER RIGHT EYE AT . SHE ALSO STATES SHE TAKES POTASSIUM 10MEQ DAILY - SHE HAS NOT FILLED THIS RECENTLY SHE STATES SHE TAKES HER HUSBANDS SUPPLY. SHE FILLS MONTELUKAST AND STATES SHE HAS BEEN TAKING IT UNTIL YESTERDAY, SHE READ IN AN ARTICLE IN A MEDICAL MAGAZINE FROM THE [facility] THAT IT CAN BE DEADLY SO SHE PLANS TO STOP TAKING IT. I HAVE LEFT IT ON THE MED REC SINCE SHE HAS NOT STOPPED YET AND ENCOURAGED HER TO SPEAK WITH HER REGARDING THIS. OTC MEDS: ASPIRIN 81MG HS FLONASE PRN PRESERVISION BID DR. OSHEA NASAL RINSE 1 TBSP BAKING SODA, 1/4 TSP SALT, 1 CUP WATER SQUIRT IN EACH NOSTRIL WITH SYRINGE QID PRN.
--- NOTE | 2019-08-12 12:37 | NUR ---
"RD ASSESSMENT PMHx: CAD; WA; hypercholesterolemia; HTN PT INTERACTION: Pt was awake and pleasant during consult for MST score. Pt states current appetite is fair, and has been for some time. Note PO intake of 80% x1meal, per chart review. Pt states she hasn't tried the Ensure supplement yet. Pt states following a low-fat diet at home, and has no issues with chewing/swallowing food. Pt states no recent issues with n/v/c/d at this time. Note last BM was 08/12 and pt not currently on bowel regimen per chart review. Pt states recent wt loss, but unsure of amount/timeframe. Note unable to determine recent wt hx, per chart review. Given pt's wt hx and PO intake, pt does not meet criteria for malnutrition per ASPEN guidelines. ABNORMAL NUTRITION-RELATED LAB VALUES LOW: Ca 8.1; Pro 5.9 HIGH: glu 266 Est. kcal needs: 3179-1833 kcal | 25-30 kcal/kg Est. Pro needs: 52-62 g Pro | 1.0-1.2 g Pro/kg PES STATEMENT: Inadequate oral intake (NI-2.1) related to loss of appetite as evidenced by pt interview INTERVENTION: Continue with current diet order of 2000mg Sodium diet. Continue with current supplementation order of Ensure Enlive with meals TID. Provides 350 kcal and 13 g Pro per serving. Will continue to follow and reassess as pt needs and status change. MONITOR/EVALUATE: PO Intake; Plan of Care; Hydration Status; Weight Status; Lab Values Denisse Greene, MS, RD, LD"
[2019-08-12] MEDS ORDERED: predniSONE 20 MG TAB PO NR (13:15)
[2019-08-12] MEDS ORDERED: BISACODYL 10 MG SUPP (DULCOLAX) PR PRN (13:15)
[2019-08-12] MEDS ORDERED: ONDANSETRON 4 MG/2 ML (SDV) Z0FRAN IV PRN (13:15)
[2019-08-12] MEDS ORDERED: ONDANSETRON 4 MG (ZOFRAN) ORAL DISSOLVE TAB PO PRN (13:15)
[2019-08-12] MEDS ORDERED: ACETAMINOPHEN 325 MG TABLET PO PRN (13:15)
[2019-08-12] MEDS ORDERED: POLYETHYLENE GLYCOL 17 GM (MIRALAX) PACK PO PRN (13:15)
[2019-08-12] MEDS ORDERED: MELATONIN 3 MG TABLET PO PRN (13:15)
[2019-08-12] MEDS ORDERED: ANTACID SUSP 30 ML UDC (MYLANTA) PO PRN (13:15)
[2019-08-12] MEDS: inSUlin ASPART (NovoLOG) 1 UNIT/0.01 ML (CHARGE PER UNIT) SC SCH ×3 (13:24→21:33)
[2019-08-12] MEDS: MAGNESIUM 1 GM/100 ML IVPB 100 ML IV SCH ×2 (13:40→13:47)
--- NOTE | 2019-08-12 13:49 | History & Physical-Hospitalist ---
History of Present Illness HPI/Chief Complaint Nathaly Scherer is an 81-year-old female with past medical history of hypertension, hyperlipidemia, COPD, who presented congestion and cough. She also reports fevers. She denies any shortness of breath. She denies any chest pain. She denies any abdominal pain, nausea, or vomiting. She denies any diarrhea. She denies any dysuria. Source: patient Exam Limitations: no limitations Date Seen 08/12/19 Time Seen by a Provider: 11:50 Attending Physician Faviola Corrales DO PCP Sandoval Penn MD Referring Physician Date of Admission Aug 11, 2019 at 21:10 Home Medications & Allergies Home Medications Reviewed patient Home Medication Reconciliation performed by pharmacy medication reconciliations roof technician and/or nursing. Patients Allergies have been reviewed. Allergies Allergies Coded Allergies No Known Drug Allergies (Hvewzbifjd43/1/19) Past Ckmljub-Gziead-Tzzine Hx Past Med/Social Hx: Reviewed Nursing Past Med/Soc Hx, Reviewed and Corrections made Patient Social History Alcohol Use: Denies Use Recreational Drug Use: No Smoking Status: Never a Smoker 2nd Hand Smoke Exposure: No Recent Foreign Travel: No Contact w/other who traveled: No Recent Hopitalizations: No Recent Infectious Disease Expo: No Immunizations Up To Date Tetanus Booster (TDap): More than 5yrs Pediatric: Yes Date of Pneumonia Vaccine: Apr 19, 2016 Date of Influenza Vaccine: May 10, 2019 Seasonal Allergies Seasonal Allergies: Yes Past Medical History Surgeries: Cardiac, Gallbladder, Hysterectomy Currently Using CPAP: No Currently Using BIPAP: No Cardiac: Coronary Artery Disease, Heart Attack, High Cholesterol, Hypertension Neurological: Stroke Reproductive: No Hysterectomy, Menopausal Gastrointestinal: Gastrointestinal Bleed History of Blood Disorders: No Family History Congenital heart disease 19 FATHER G8 BROTHER FH: breast cancer G8 SISTER Review of Systems Constitutional: fever, malaise Respiratory: cough; No short of breath Cardiovascular: no symptoms reported Gastrointestinal: no symptoms reported Genitourinary: no symptoms reported Musculoskeletal: no symptoms reported Skin: no symptoms reported Psychiatric/Neurological: No Symptoms Reported Physical Exam Physical Exam Vital Signs Vital Signs - First Documented 08/11/19 08/11/19 08/12/19 19:32 19:36 06:58 Temp 37.2 Pulse 100 Resp 20 B/P (MAP) 111/86 (94) Pulse Ox 93 O2 Delivery Nasal Cannula O2 Flow Rate 2.00 FiO2 2 Capillary Refill : Less Than 3 SecondsLess Than 3 Seconds Height, Weight, BMI Height: 5'5.00" Weight: 119lbs. 9.0oz. 54.929374kf; 19.04 BMI Method:Stated General Appearance: No Apparent Distress, WD/WN HEENT: PERRL/EOMI, Pharynx Normal Neck: Normal Inspection, Supple Respiratory: Lungs Clear, Normal Breath Sounds, No Respiratory Distress Cardiovascular: Regular Rate, Rhythm, No Edema, No Murmur Gastrointestinal: Normal Bowel Sounds, Non Tender, Soft Extremity: Normal Inspection, Non Tender, No Pedal Edema Neurologic/Psychiatric: Alert, Oriented x3, No Motor/Sensory Deficits, Normal Mood/Affect Skin: Normal Color, Warm/Dry Results Results/Procedures Labs Laboratory Tests 08/11/19 19:39 08/12/19 05:53 Patient resulted labs reviewed. Imaging: Reviewed Imaging Report Assessment/Plan Admission Diagnosis acute hypoxic respiratory failure Admission Status: Inpatient Order (span 2 midnights) Reason for Inpatient Admission: acute hypoxic respiratory failure due to influenza Assessment and Plan Influenza B infection Acute hypoxic respiratory failure COPD with acute exacerbation Influenza B positive Chest x-ray without acute abnormality Procalcitonin normal Started on Tamiflu continue supportive care for influenza started on Solu-Medrol, transition to oral prednisone MAT protocol HTN HLD Continue home meds DVT prophylaxis: Lovenox Diagnosis/Problems Diagnosis/Problems (1) Influenza B Status: Acute (2) Acute respiratory failure with hypoxia Status: Acute (3) COPD with exacerbation Status: Acute Clinical Quality Measures DVT/VTE Risk/Contraindication: Risk Factor Score Per Nursin RFS Level Per Nursing on Admit: 3=High FRAN PINEDA MD Aug 12, 2019 13:49
[2019-08-12] MEDS ORDERED: cefTRIAXone 1,000 MG/SWFI 10 ML IV PUSH IV SCH ×2 (20:00)
[2019-08-12] MEDS ORDERED: AZITHROMYCIN 500 MG/NS 250 ML IVPB IV SCH ×2 (20:00)
[2019-08-12] MEDS: SENNOSIDES 8.6 MG (SENOKOT) TAB PO SCH (20:09)
[2019-08-12] MEDS: DOCUSATE SODIUM 100 MG (COLACE) CAP PO SCH (20:09)
[2019-08-13] VITALS: BP 136/73
[2019-08-13] MEDS: RT-ALBUTEROL SULF 2.5 MG/3 ML PRE-MIX VIAL INH SCH ×2 (02:51→10:09)
[2019-08-13 04:00] VITALS: BP 123/58
[2019-08-13] MEDS: inSUlin ASPART (NovoLOG) 1 UNIT/0.01 ML (CHARGE PER UNIT) SC SCH ×2 (06:00→12:27)
[2019-08-13] MEDS: D5 1/2 NS W/KCL 20 MEQ/L 1,000 ML IV SCH (06:35)
[2019-08-13] MEDS ORDERED: predniSONE 20 MG TAB PO SCH (07:00)
[2019-08-13 08:00] VITALS: BP 152/72
[2019-08-13] MEDS: SENNOSIDES 8.6 MG (SENOKOT) TAB PO SCH (10:10)
[2019-08-13] MEDS: DOCUSATE SODIUM 100 MG (COLACE) CAP PO SCH (10:10)
[2019-08-13] MEDS: BENZONATATE 100 MG (TESSALON) CAPSULE PO SCH (10:10)
[2019-08-13] MEDS: OSELTAMIVIR 30 MG (TAMIFLU) CAPSULE PO SCH (10:10)
[2019-08-13] MEDS: ENOXAPARIN 30 MG/0.3 ML (LOVENOX) SYR SC SCH (10:12)
[2019-08-13 11:19] VITALS: BP 137/62
--- NOTE | 2019-08-13 12:21 | Physical Therapy Evaluation ---
PT Evaluation-General Medical Diagnosis Admission Date Aug 11, 2019 at 21:10 Medical Diagnosis: Influenza B, hypoxia Onset Date: Aug 11, 2019 Therapy Diagnosis Therapy Diagnosis: limited mobility and fatigue Height/Weight Height (Feet): 5 Height (Inches): 5.00 Weight (Pounds): 119 Weight (Ounces): 9.0 Precautions Precautions/Isolations: Droplet Isolation, Fall Prevention Weight Bear Status Right Lower Extremity: Right Weight Bearing/Tolerated Left Lower Extremity: Left Weight Bearing/Tolerated Referral Physician: Savanna Reason for Referral: Evaluation/Treatment Medical History Pertinent Medical History: CAD, COPD, CVA, HTN, NM Current History Admitted via ED with influenza on 08/11. Reviewed History: Yes Social History Home: Single Level Current Living Status: Alone Entry Into Home: Level Entry Prior Prior Level of Function SCALE: Activities may be completed with or without assistive devices. 4-Hbmbvoyuzv-lbignuy completes the activity by him/herself with no assistance from a helper. 5-Set-up or Clean-up Assistance-helper sets up or cleans up; patient completes activity. [place] assists only prior to or following the activity. 4-Supervision or Touching Assistance-helper provides verbal cues and/or to uching/steadying and/or contact guard assistance as patient completes activity. Assistance may be provided throughout the activity or intermittently. 3-Partial/Moderate Assistance-helper does LESS THAN HALF the effort. [place] lifts, holds or supports trunk or limbs, but provides less than half the effort. 2-Substantial/Maximal Assistance-helper does MORE THAN HALF the effort. [place] lifts or holds trunk or limbs and provides more than half the effort. 2-Edlufiwot-hnehqf does ALL the effort. Patient does none of the effort to complete the activity. Or, the assistance of 2 or more helpers is required for the patient to complete the activity. If activity was not attempted, code reason: 7-Patient Refused. 9-Not Applicable-not attempted and the patient did not perform the activity before the current illness, exacerbation or injury. 10-Not Attempted due to Environmental Limitations-(lack of equipment, weather restraints, etc.). 88-Not Attempted due to Medical Conditions or Safety Concerns. Bed Mobility: 5 Transfers (B,C,W/C): 5 Gait: 5 Indoor Mobility (Ambulation): Independent Stairs: Independent PT Evaluation-Current Subjective Pt states that she is just feeling weak. No pain reported. Pt/Family Goals Return home Objective Patient Orientation: Person, Place, Time, Situation Attachments: IV ROM/Strength ROM Upper Extremities WFL ROM Lower Extremities WFL Strength Upper Extremities WFL Strength Lower Extremities WFL Neuromuscular (Tone, Coordination, Reflexes) intact Sensory Vision: Functional Hearing: Functional Sensation Right Upper Extremit: Intact Sensation Left Upper Extremity: Intact Sensation Right Lower Extremit: Intact Sensation Left Lower Extremity: Intact Transfers Roll Left to Right (QC): 5 Sit to Lying (QC): 5 Lying to Sitting/Side of Bed(Q: 5 Sit to Stand (QC): 5 Gait Does the Patient Walk?: Yes Mode of Locomotion: Walk Anticipated Mode of Locomotion: Walk Walk 10 feet (QC): 5 Walk 50 ft with 2 Turns(QC): 5 Walk 150 ft (QC): 5 Walking 10ft/uneven surface-QC: 88 Distance: 150ft Gait Assistive Device: FWW Wheelchair Training Does the Pt Use a Wheelchair?: No Balance Sitting Static: Normal Sitting Dynamic: Normal Standing Static: Good Standing Dynamic: Good Assessment/Needs Pt is able to safely perform bed mobility (I), transfer with the use of her hands, and ambulate with the walker. She shows good stability and no evidence of instability. Rehab Potential: Good PT Short Term Goals Short Term Goals Time Frame: Aug 15, 2019 Roll Left & Right: 6 Sit to lyin Lying to sitting on side of be: 6 Sit to stand: 6 Chair/amb-ek-nticn transfer: 6 Toilet transfer: 6 Car transfer: 5 Walk 10 feet: 6 Walk 50 feet with two turns: 6 Walk 150 feet: 6 PT Plan Problem List Problem List: Activity Tolerance, Functional Strength, Gait, Transfer, Bed M obility Treatment/Plan Treatment Plan: Continue Plan of Care Treatment Plan: Bed Mobility, Education, Functional Strength, Gait, Therapeutic Exercise, Transfers Treatment Duration: Aug 15, 2019 Frequency: 5 times per week Estimated Hrs Per Day: .25 hour per day Patient and/or Family Agrees t: Yes Time/GCodes Time In: 1141 Time Out: 1210 Total Billed Treatment Time: 29 Total Billed Treatment 1, nikitac 29 TELLY CHOI PT Aug 13, 2019 12:21
[2019-08-13] MEDS ORDERED: OSLT75C PO (12:45)
[2019-08-13] MEDS ORDERED: PRED10TA22 PO (12:46)
--- NOTE | 2019-08-13 12:54 | Discharge Summary ---
Discharge Summary Hospital Course Was the Problem List Reviewed?: Yes Problems/Dx: (1) Influenza B Status: Acute (2) Acute respiratory failure with hypoxia Status: Resolved (3) COPD with exacerbation Status: Acute Hospital Course Date of Admission: Aug 11, 2019 at 21:10 Admission Diagnosis : influenza B infection, COPD exacerbation Family Physician/Provider: Jay Jay Thompson MD Date of Discharge: 08/13/19 Discharge Diagnosis: influenza B infection, COPD exacerbation Hospital Course: Nathaly Scherer is an 89yoF who presented with shortness of breath and she was admitted with influenza B infection and COPD exacerbation. She was started on Tamiflu and improved during her hospitalization. She required supplemental oxygen initially, but was doing well on room air at the time of discharge. She was started on steroids and will receive a taper of prednisone as an outpatient. She should follow up with Dr. Thompson in about a week. Labs and Pending Lab Test: Laboratory Tests 08/12/19 16:31: Glucometer 263H 08/12/19 20:35: Glucometer 222H 08/13/19 06:21: Glucometer 171H 08/13/19 11:22: Glucometer 163H Microbiology 08/11/19 Urine Culture - Final, Complete NO GROWTH 08/11/19 Blood Culture - Preliminary, Resulted No growth 08/11/19 Gram Stain - Final, Resulted 08/11/19 Sputum Culture, Resulted Pending Home Meds Active Reported Potassium Chloride 10 Meq Tab.er.prt 10 Meq PO DAILY UNKNOWN LAST FILLED DATE, STATES SHE USES HER HUSBANDS SUPPLY [Nasal Rinse] NS QID PRN MIXES PER DR. OSHEA: 1 TBSP BAKING SODA 1/4 TSP SALT 1 CUP WARM WATER SQUIRTS IN EACH NOSTRIL WITH SYRINGE 4X DAILY NEEDED [place] (Bimatoprost) 2.5 Ml Drops 1 Drop OD HS Sucralfate 1 Gm Tablet 1 Gm PO ACHS Cetirizine HCl 10 Mg Tablet 10 Mg PO HS Montelukast Sodium 10 Mg Tablet 10 Mg PO HS Preservision Areds 2 Softgel (Vit C/E/Zn/Coppr/Lutein/Zeaxan) 1 Each Capsule 1 Cap PO BID Combivent Respimat Inhal [place] (Albuterol/Ipratropium) 4 Gm Aero 1 Puff IH Q6H PRN Flonase Allergy Relief (Fluticasone Propionate) 9.9 Ml [place].susp 1 [place] NS DAILY PRN Pantoprazole Sodium 40 Mg Tablet. 40 Mg PO DAILY Aspir 81 (Aspirin) 81 Mg Tablet.dr 81 Mg PO HS Lisinopril 10 Mg Tablet 10 Mg PO HS LAST FILLED 02-10-2019 #90 Advair 250-50 Diskus (Fluticasone/Salmeterol) 1 Each Blst.w.dev 1 Puff IH BID Simvastatin 40 Mg Tablet 40 Mg PO HS LAST FILLED 01-25-2019 #90 Atenolol 50 Mg Tablet 50 Mg PO HS LAST FILLED #90 04-19-19 Assessment/Pt Instructions Take medications as prescribed. Complete your course of Tamiflu for influenza. Complete your prednisone taper for COPD. Follow up with Dr. Thompson in about a week. Discharge Planning: <30 minutes discharge planning Discharge Instructions Discharge Diet: Eat Small Frequent Meals Activity as Tolerated: Yes Discharge Physical Examination Vital Signs Vital Signs Date Time Temp Pulse Resp B/P (MAP) Pulse Ox O2 Delivery O2 Flow Rate FiO2 08/13/19 11:19 36.3 77 18 137/62 (87) 94 Room Air 08/12/19 16:33 2.00 08/12/19 06:58 2 General Appearance: No Apparent Distress, WD/WN HEENT: PERRL/EOMI, Pharynx Normal Respiratory: Lungs Clear, Normal Breath Sounds, No Respiratory Distress Cardiovascular: Regular Rate, Rhythm, No Edema, No Murmur Gastrointestinal: Normal Bowel Sounds, Non Tender, Soft Extremity: Normal Inspection, Non Tender, No Pedal Edema Skin: Normal Color, Warm/Dry Neurologic/Psychiatric: Alert, Oriented x3, No Motor/Sensory Deficits, Normal Mood/Affect Allergies: Coded Allergies: No Known Drug Allergies (Unverified , 06/19/19) Copy Copies To 1: JAY JAY THOMPSON MD Discharge Summary Date of Admission Aug 11, 2019 at 21:10 Date of Discharge Discharge Date: Aug 13, 2019 Discharge Time: 09:30 Admission Diagnosis acute hypoxic respiratory failure Discharge Diagnosis Influenza B infection, COPD with acute exacerbation (1) Influenza B Status: Acute (2) Acute respiratory failure with hypoxia Status: Resolved (3) COPD with exacerbation Status: Acute Clinical Quality Measures DVT/VTE Risk/Contraindication: Risk Factor Score Per Nursin RFS Level Per Nursing on Admit: 3=High FRAN PINEDA MD Aug 13, 2019 12:53
[2019-08-13 15:11] VITALS: BP 137/62
== END 2019-08-13 15:45 | disposition home or self-care (01) | DRG 193 ==
LOC: EDUNIT# 19:32 → ER 19:33 → 4TH 21:10
PROVIDERS: ADMIT Internal Medicine; ATTEND Internal Medicine
DX: J10.1 Influenza due to other identified influenza virus with other respiratory manifestations (principal); J96.01 Acute respiratory failure with hypoxia; J44.1 Chronic obstructive pulmonary disease with (acute) exacerbation; E86.0 Dehydration; R53.1 Weakness; I25.10 Atherosclerotic heart disease of native coronary artery without angina pectoris; I25.2 Old myocardial infarction; I10 Essential (primary) hypertension; E78.5 Hyperlipidemia, unspecified; E83.42 Hypomagnesemia; Z86.73 Personal history of transient ischemic attack (TIA), and cerebral infarction without residual deficits
CPT/HCPCS: 36415; 51701; 71045; 80053; 81000; 82962; 83605; 83735; 83880; 84145; 84484; 85007; 85025; 85027; 85610; 85730; 87040; 87070; 87088; 87205; 87804; 93005; 93041; 94640; 94760

== ENCOUNTER 2019-08-22 12:22 | Emergency (ER) | payer MEDICARE, OTHER ==
[~2019-08-22] VITALS: Ht 165.1 cm; Wt 57.2 kg
[~2019-08-22 12:22] MED LIST changes: +BIMA2.5D4 OD; +NASAL RINSE NS; +OSLT75C PO; +POTA10TA36 PO; +PRED10TA22 PO
--- NOTE | 2019-08-22 13:12 | Diagnostic Imaging Report ---
INDICATION: Cough. COMPARISON: 08/11/2019. FINDINGS: Single frontal view of the chest demonstrates normal heart size and pulmonary vascularity. The lungs are well aerated and clear. No large pleural effusion or pneumothorax is seen. The visualized osseous structures show no acute abnormalities. There is calcified aortic atherosclerosis. IMPRESSION: 1. No acute cardiopulmonary process. Dictated by: Dictated on workstation # [id number]
[2019-08-22 13:19] LABS: BASOPHILS % (AUTO) 0 % (0-10); EOSINOPHILS # (AUTO) 3.9 10^3/uL (0.0-0.3); EOSINOPHILS % (AUTO) 26 % (0-10); HEMATOCRIT 32 % (35-52); HEMOGLOBIN 10.5 G/DL (11.5-16.0); LYMPHOCYTES # (AUTO) 2.8 X 10^3 (1.0-4.0); LYMPHOCYTES % (AUTO) 19 % (12-44); MEAN CORPUSCULAR HEMOGLOBIN 30 PG (25-34); MEAN CORPUSCULAR HGB CONC 33 G/DL (32-36); MEAN CORPUSCULAR VOLUME 92 FL (80-99); MEAN PLATELET VOLUME 10.2 FL (7.4-10.4); MONOCYTES % (AUTO) 7 % (0-12); NEUTROPHILS # (AUTO) 7.3 X 10^3 (1.8-7.8); NEUTROPHILS % (AUTO) 49 % (42-75); PLATELET COUNT 256 10^3/uL (130-400); RED CELL DISTRIBUTION WIDTH 14.7 % (10.0-14.5); WHITE BLOOD COUNT 14.9 10^3/uL (4.3-11.0)
[2019-08-22 13:37] LABS: ALANINE AMINOTRANSFERASE 22 U/L (0-55); ALBUMIN 3.2 GM/DL (3.2-4.5); ALKALINE PHOSPHATASE 83 U/L (40-136); BILIRUBIN,TOTAL 0.4 MG/DL (0.1-1.0); BUN/CREATININE RATIO 19; CALCIUM 8.8 MG/DL (8.5-10.1); CARBON DIOXIDE 26 MMOL/L (21-32); CHLORIDE 103 MMOL/L (98-107); CREATININE SERUM 0.79 MG/DL (0.60-1.30); GFR ESTIMATED > 60; GLUCOSE 87 MG/DL (70-105); POTASSIUM 4.3 MMOL/L (3.6-5.0); SODIUM 137 MMOL/L (135-145); TOTAL PROTEIN 5.3 GM/DL (6.4-8.2)
[2019-08-22 13:43] LABS: BAND NEUTROPHILS 0 %; BASOPHILS % (MANUAL) 0 %; EOSINOPHILS % (MANUAL) 18 %; LYMPHOCYTES % (MANUAL) 15 %; MONOCYTES % (MANUAL) 5 %; NEUTROPHILS % (MANUAL) 55 %; RBC MORPH NORMAL; REACTIVE LYMPHOCYTES 7 %
--- NOTE | 2019-08-22 13:59 | ED Chest Pain ---
General Chief Complaint: Chest Wall Stated Complaint: CHEST PAIN Nursing Triage Note: TO ED PER EMS [facility] WAS DX WITH FLU B 2 WEEKS AGO. LAST NIGHT WHEN COUGHING AND BLOWING HER NOSE HER CHEST HURT NO PAIN ON ADMIT. Nursing Sepsis Screen: No Definite Risk Source: patient Exam Limitations: no limitations History of Present Illness Date Seen by Provider: Aug 22, 2019 Time Seen by Provider: 13:11 Initial Comments Here with report of central chest pain and right-sided chest pain that went to her back after she had a coughing fit. Lasted for about 15 minutes and then resolved. She did have intermittent chest pain with deep breathing after that but that has settled down now as well. Just recently completed a hospitalization and treatment for influenza B. She was worried about pneumonia. No fevers currently. Denies nausea, vomiting or diarrhea. Lives at home alone in [place], [place]. Follows with Dr. Thompson. Timing/Duration: 1 hour, intermittent, resolved prior to arrival Severity/Quality: moderate, aching Location: central (and right-sided) Radiation: back Activities at Onset: none Prior CP/Workup: echocardiography, heart attack Modifying Factors: improves with rest ASA po BILINGUAL CALL CENTER REPRESENTATIVE: Yes (home aspirin) NTG SL BILINGUAL CALL CENTER REPRESENTATIVE: No Associated Symptoms: No abdominal pain; back pain; No diaphoresis, No nausea/vomiting; shortness of breath; No weakness Allergies and Home Medications Allergies Coded Allergies: No Known Drug Allergies (Unverified , 06/19/19) Home Medications Albuterol/Ipratropium 4 Gm Aero, 1 PUFF IH Q6H PRN for SHORTNESS OF BREATH, (Reported) Aspirin 81 Mg Tablet.dr, 81 MG PO HS, (Reported) Atenolol 50 Mg Tablet, 50 MG PO HS, (Reported) LAST FILLED #90 04-19-19 Bimatoprost 2.5 Ml Drops, 1 DROP OD HS, (Reported) Cetirizine HCl 10 Mg Tablet, 10 MG PO HS, (Reported) Fluticasone Propionate 9.9 Ml [place].susp, 1 SPRAY NS DAILY PRN for CONGESTION, (Reported) Fluticasone/Salmeterol 1 Each Blst.w.dev, 1 PUFF IH BID, (Reported) Lisinopril 10 Mg Tablet, 10 MG PO HS, (Reported) LAST FILLED 02-10-2019 #90 Montelukast Sodium 10 Mg Tablet, 10 MG PO HS, (Reported) Oseltamivir Phosphate 75 Mg Cap, 75 MG PO DAILY Prescribed by: FRAN PINEAD on 08/13/19 1245 Pantoprazole Sodium 40 Mg Tablet.dr, 40 MG PO DAILY, (Reported) Potassium Chloride 10 Meq Tab.er.prt, 10 MEQ PO DAILY, (Reported) UNKNOWN LAST FILLED DATE, STATES SHE USES HER HUSBANDS SUPPLY Prednisone 10 Mg Tab.ds.pk, 10 MG PO DAILY Take 6 tabs(60mg)daily,decrease by 1 tab(10MG)daily. Prescribed by: FRAN PINEDA on 08/13/19 1246 Simvastatin 40 Mg Tablet, 40 MG PO HS, (Reported) LAST FILLED 01-25-2019 #90 Sucralfate 1 Gm Tablet, 1 GM PO ACHS, (Reported) Vit C/E/Zn/Coppr/Lutein/Zeaxan 1 Each Capsule, 1 CAP PO BID, (Reported) [Nasal Rinse] , NS QID PRN for DRY NOSE, (Reported) MIXES PER DR. OSHEA: 1 TBSP BAKING SODA 1/4 TSP SALT 1 CUP WARM WATER SQUIRTS IN EACH NOSTRIL WITH SYRINGE 4X DAILY NEEDED Patient Home Medication List Home Medication List Reviewed: Yes Review of Systems Review of Systems Constitutional: see HPI; No chills, No fever EENTM: No Symptoms Reported Respiratory: Cough, Shortness of Air Cardiovascular: Chest Pain (with cough); Denies Edema, Denies Lightheadedness Gastrointestinal: No Symptoms Reported Genitourinary: No Symptoms Reported Musculoskeletal: back pain; No joint pain; muscle pain Skin: no symptoms reported Psychiatric/Neurological: No Symptoms Reported Endocrine: No Symptoms Reported All Other Systems Reviewed Negative Unless Noted: Yes Past Wgevhpq-Vwvsbj-Zmftag Hx Past Med/Social Hx: Reviewed Nursing Past Med/Soc Hx Patient Social History Alcohol Use: Denies Use Recreational Drug Use: No Smoking Status: Never a Smoker 2nd Hand Smoke Exposure: No Recent Foreign Travel: No Contact w/Someone Who Travel: No Recent Infectious Disease Expo: No Recent Hopitalizations: No Immunizations Up To Date Tetanus Booster (TDap): More than 5yrs PED Vaccines UTD: Yes Date of Pneumonia Vaccine: Apr 19, 2016 Date of Influenza Vaccine: May 10, 2019 Seasonal Allergies Seasonal Allergies: Yes Past Medical History Surgeries: Yes Cardiac, Gallbladder, Hysterectomy Respiratory: Yes (BRONCHITIS) Currently Using CPAP: No Currently Using BIPAP: No Cardiac: Yes Coronary Artery Disease, Heart Attack, High Cholesterol, Hypertension Neurological: Yes (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 PT REFUSED EGD.) Gastrointestinal Bleed Musculoskeletal: No Endocrine: No HEENT: No Cancer: No Psychosocial: No Integumentary: No Blood Disorders: No Family Medical History Reviewed Nursing Family Hx Congenital heart disease 19 FATHER G8 BROTHER FH: breast cancer G8 SISTER Physical Exam Vital Signs Vital Signs - First Documented 08/22/19 12:22 Temp 35.5 Pulse 70 Resp 18 B/P (MAP) 153/73 (99) Pulse Ox 97 O2 Delivery Room Air Capillary Refill : Less Than 3 Seconds Height, Weight, BMI Height: 5'5.00" Weight: 119lbs. 9.0oz. 54.612326bu; 20.00 BMI Method:Stated General Appearance: No Apparent Distress, WD/WN HEENT: PERRL/EOMI, Pharynx Normal Neck: Non Tender, Supple Respiratory: Lungs Clear, Normal Breath Sounds Cardiovascular: Regular Rate, Rhythm, No Murmur Gastrointestinal: Non Tender, Soft Extremity: Normal Range of Motion, Non Tender Neurologic/Psychiatric: Alert, Oriented x3 Skin: Normal Color, Warm/Dry Progress/Results/Core Measures Results/Orders Lab Results Laboratory Tests Test 08/22/19 12:32 08/22/19 16:07 Range/Units White Blood Count 14.9 H 4.3-11.0 10^3/uL Red Blood Count 3.51 L 4.35-5.85 10^6/uL Hemoglobin 10.5 L 11.5-16.0 G/DL Hematocrit 32 L 35-52 % Mean Corpuscular Volume 92 80-99 FL Mean Corpuscular Hemoglobin 30 25-34 PG Mean Corpuscular Hemoglobin Concent 33 32-36 G/DL Red Cell Distribution Width 14.7 H 10.0-14.5 % Platelet Count 256 130-400 10^3/uL Mean Platelet Volume 10.2 7.4-10.4 FL Neutrophils (%) (Auto) 49 42-75 % Lymphocytes (%) (Auto) 19 12-44 % Monocytes (%) (Auto) 7 0-12 % Eosinophils (%) (Auto) 26 H 0-10 % Basophils (%) (Auto) 0 0-10 % Neutrophils # (Auto) 7.3 1.8-7.8 X 10^3 Lymphocytes # (Auto) 2.8 1.0-4.0 X 10^3 Monocytes # (Auto) 1.0 0.0-1.0 X 10^3 Eosinophils # (Auto) 3.9 H 0.0-0.3 10^3/uL Basophils # (Auto) 0.0 0.0-0.1 10^3/uL Neutrophils % (Manual) 55 % Lymphocytes % (Manual) 15 % Monocytes % (Manual) 5 % Eosinophils % (Manual) 18 % Basophils % (Manual) 0 % Band Neutrophils 0 % Reactive Lymphocytes 7 % Blood Morphology Comment NORMAL Sodium Level 137 135-145 MMOL/L Potassium Level 4.3 3.6-5.0 MMOL/L Chloride Level 103 98-107 MMOL/L Carbon Dioxide Level 26 21-32 MMOL/L Anion Gap 8 5-14 MMOL/L Blood Urea Nitrogen 15 7-18 MG/DL Creatinine 0.79 0.60-1.30 MG/DL Estimat Glomerular Filtration Rate > 60 BUN/Creatinine Ratio 19 Glucose Level 87 70-105 MG/DL Calcium Level 8.8 8.5-10.1 MG/DL Corrected Calcium 9.4 8.5-10.1 MG/DL Total Bilirubin 0.4 0.1-1.0 MG/DL Aspartate Amino Transf (AST/SGOT) 17 5-34 U/L Alanine Aminotransferase (ALT/SGPT) 22 0-55 U/L Alkaline Phosphatase 83 40-136 U/L Troponin I < 0.028 < 0.028 <0.028 NG/ML C-Reactive Protein High Sensitivity 0.10 0.00-0.50 MG/DL Total Protein 5.3 L 6.4-8.2 GM/DL Albumin 3.2 3.2-4.5 GM/DL My Orders Orders - GREY MORAN MD Chest 1 View, Ap/Pa Only (08/22/19 12:39) Cbc With Automated Diff (08/22/19 12:39) Comprehensive Metabolic Panel (08/22/19 12:39) Hs C Reactive Protein (08/22/19 12:39) Troponin I (08/22/19 12:39) Ekg Tracing (08/22/19 12:39) Monitor-Rhythm Ecg Trace Only (08/22/19 12:39) Manual Differential (08/22/19 12:32) Troponin I (08/22/19 15:27) Vital Signs/I&O 08/22/19 12:22 Temp 35.5 Pulse 70 Resp 18 B/P (MAP) 153/73 (99) Pulse Ox 97 O2 Delivery Room Air Blood Pressure Mean: 99 Progress Progress Note : Progress Note Seen and evaluated. IV, labs, EKG and chest x-ray ordered. This does not appear to be cardiac mediated but we will check cardiac enzymes. Appeared to emanate after coughing spell and has subsequently resolved with rest. Monitor patient. 1600: Patient has rested comfortably without distress throughout the ER stay. We will recheck troponin. 1650 troponin is negative. Overall no indication of pneumonia or other cardiac event. I do believe she is still recovering from influenza B. She does have a friend that can help her. We did discuss observation admission or going home. She would prefer to go home at this point. Discharged home with return precautions. Patient verbalize understanding instructions and agreement with plan Initial ECG Impression Date: Aug 22, 2019 Initial ECG Impression Time: 13:11 Initial ECG Rate: 83 Initial ECG Rhythm: Normal Sinus Initial ECG Intervals: Normal Comment Sinus rhythm with normal axis. No evidence of ST elevation VA. Overall similar but less intraventricular conduction delay from previous of 08/11/19. Interpreted by me. Diagnostic Imaging Diagonstic Imaging: Xray Plain Films/CT/US/NM/MRI: chest Comments [facility]. [place], [place] NAME: MARV CUEVAS [facility] REC#: [id number] PT STATUS: REG ER : 1930 PHYSICIAN: GREY MORAN MD ADMIT DATE: 08/22/19/ER Draft Date of Exam:08/22/19 CHEST 1 VIEW, AP/PA ONLY INDICATION: Cough. COMPARISON: 08/11/2019. FINDINGS: Single frontal view of the chest demonstrates normal heart size and pulmonary vascularity. The lungs are well aerated and clear. No large pleural effusion or pneumothorax is seen. The visualized osseous structures show no acute abnormalities. There is calcified aortic atherosclerosis. IMPRESSION: 1. No acute cardiopulmonary process. Dictated on workstation # [id number] Dict: 08/22/19 1309 Trans: 08/22/19 1312 [id number] Interpreted by: CONNIE CHAMPAGNE MD Electronically signed by: Departure Impression Primary Impression: Chest pain Qualified Codes: R07.9 - Chest pain, unspecified Disposition: HOME, SELF-CARE Condition: Stable Departure-Patient Inst. Decision time for Depature: 17:02 Referrals: JAY JAY THOMPSON MD (PCP/Family) Primary Care Physician Patient Instructions: Chest Pain (DC) Add. Discharge Instructions: All discharge instructions reviewed with patient and/or family. Voiced understanding. Continue home medications as previously prescribed. Follow-up with your doctor this week for recheck and further evaluation. Drink plenty of fluids and get plenty of rest. Return for worse pain, fever, vomiting, weakness, breathing problems or other concerns as needed. Copy Copies To 1: JAY JAY THOMPSON MD, TIMOTHY D MD Aug 22, 2019 13:59
[2019-08-22 17:12] VITALS: BP 180/78
== END 2019-08-22 17:16 | disposition home or self-care (01) ==
LOC: EDUNIT# 12:22 → ER 12:23
DX: R07.89 Other chest pain (principal); I10 Essential (primary) hypertension; I25.10 Atherosclerotic heart disease of native coronary artery without angina pectoris; I25.2 Old myocardial infarction; E78.00 Pure hypercholesterolemia, unspecified; Z86.73 Personal history of transient ischemic attack (TIA), and cerebral infarction without residual deficits; Z79.82 Long term (current) use of aspirin; Z79.51 Long term (current) use of inhaled steroids; Z80.3 Family history of malignant neoplasm of breast
CPT/HCPCS: 36415; 71045; 80053; 84484; 85007; 85027; 86141; 93005; 93041

== ENCOUNTER 2019-09-01 02:44 | Emergency (ER) | payer MEDICARE, OTHER ==
[~2019-09-01] VITALS: Ht 162.5 cm; Wt 57.2 kg
--- NOTE | 2019-09-01 03:07 | ED Respiratory ---
General Stated Complaint: SOB Source: patient, EMS Exam Limitations: no limitations History of Present Illness Date Seen by Provider: Sep 01, 2019 Time Seen by Provider: 02:51 Initial Comments Here by EMS with report of shortness of breath at home. Noted to be hypertensive and hypoxic by EMS with O2 saturation in the 80s. Blood pressure was 220s systolic. DuoNeb initiated by EMS which did markedly improve her symptoms. Patient states that she is overall comfortable now. She's had a difficult course over the last few months including having pneumonia and influenza. Currently patient states she is better and denies chest pain. She states her breathing is better. She did have dry heaves earlier but that has resolved. Denies diarrhea. Timing/Duration: this morning, changing over time Severity: moderate, severe Prior Episodes/Possible Cause: occasional episodes Modifying Factors: Improves With Albuterol Nebulizer, Improves With Oxygen Associated Symptoms: No chest pain/soreness; cough; No fever/chills, No nasal congestion, No nasal drainage; shortness of breath, wheezing Allergies and Home Medications Allergies Coded Allergies: No Known Drug Allergies (Unverified , 06/19/19) Home Medications Albuterol/Ipratropium 4 Gm Aero, 1 PUFF IH Q6H PRN for SHORTNESS OF BREATH, (Reported) Aspirin 81 Mg Tablet.dr, 81 MG PO HS, (Reported) Atenolol 50 Mg Tablet, 50 MG PO HS, (Reported) LAST FILLED #90 04-19-19 Bimatoprost 2.5 Ml Drops, 1 DROP OD HS, (Reported) Cetirizine HCl 10 Mg Tablet, 10 MG PO HS, (Reported) Fluticasone Propionate 9.9 Ml Tiger.susp, 1 SPRAY NS DAILY PRN for CONGESTION, (Reported) Fluticasone/Salmeterol 1 Each Blst.w.dev, 1 PUFF IH BID, (Reported) Lisinopril 10 Mg Tablet, 10 MG PO HS, (Reported) LAST FILLED 02-10-2019 #90 Montelukast Sodium 10 Mg Tablet, 10 MG PO HS, (Reported) Oseltamivir Phosphate 75 Mg Cap, 75 MG PO DAILY Prescribed by: FRAN PINEDA on 08/13/19 1245 Pantoprazole Sodium 40 Mg Tablet.dr, 40 MG PO DAILY, (Reported) Potassium Chloride 10 Meq Tab.er.prt, 10 MEQ PO DAILY, (Reported) UNKNOWN LAST FILLED DATE, STATES SHE USES HER HUSBANDS SUPPLY Prednisone 10 Mg Tab.ds.pk, 10 MG PO DAILY Take 6 tabs(60mg)daily,decrease by 1 tab(10MG)daily. Prescribed by: FRAN PIENDA on 08/13/19 1246 Simvastatin 40 Mg Tablet, 40 MG PO HS, (Reported) LAST FILLED 01-25-2019 #90 Sucralfate 1 Gm Tablet, 1 GM PO ACHS, (Reported) Vit C/E/Zn/Coppr/Lutein/Zeaxan 1 Each Capsule, 1 CAP PO BID, (Reported) [Nasal Rinse] , NS QID PRN for DRY NOSE, (Reported) MIXES PER DR. OSHEA: 1 TBSP BAKING SODA 1/4 TSP SALT 1 CUP WARM WATER SQUIRTS IN EACH NOSTRIL WITH SYRINGE 4X DAILY NEEDED Patient Home Medication List Home Medication List Reviewed: Yes Review of Systems Review of Systems Constitutional: see HPI; No chills, No fever EENTM: no symptoms reported Respiratory: cough, short of breath, wheezing Cardiovascular: No chest pain, No edema Gastrointestinal: No abdominal pain; nausea, vomiting Genitourinary: no symptoms reported Musculoskeletal: no symptoms reported Skin: no symptoms reported Psychiatric/Neurological: Anxiety; Denies Headache Past Thpayql-Foilmj-Unnxmx Hx Past Med/Social Hx: Reviewed Nursing Past Med/Soc Hx Patient Social History Alcohol Use: Denies Use Recreational Drug Use: No Smoking Status: Never a Smoker 2nd Hand Smoke Exposure: No Recent Foreign Travel: No Contact w/Someone Who Travel: No Recent Hopitalizations: No Immunizations Up To Date Tetanus Booster (TDap): More than 5yrs PED Vaccines UTD: Yes Date of Pneumonia Vaccine: Apr 19, 2016 Date of Influenza Vaccine: May 10, 2019 Seasonal Allergies Seasonal Allergies: Yes Past Medical History Surgeries: Yes Cardiac, Gallbladder, Hysterectomy Respiratory: Yes (BRONCHITIS) Currently Using CPAP: No Currently Using BIPAP: No Cardiac: Yes Coronary Artery Disease, Heart Attack, High Cholesterol, Hypertension Neurological: 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 PT REFUSED EGD.) Gastrointestinal Bleed Musculoskeletal: No Endocrine: No HEENT: No Cancer: No Psychosocial: No Integumentary: No Blood Disorders: No Family Medical History Reviewed Nursing Family Hx Congenital heart disease 19 FATHER G8 BROTHER FH: breast cancer G8 SISTER Physical Exam Vital Signs - First Documented 09/01/19 02:45 Temp 37.2 Pulse 86 Resp 20 B/P (MAP) 155/79 (104) Pulse Ox 97 Capillary Refill : Height: 5'5.00" Weight: 119lbs. 9.0oz. 54.472366qb; 20.00 BMI Method:Stated General Appearance: WD/WN, no apparent distress HEENT: PERRL/EOMI, pharynx normal Neck: full range of motion, supple Respiratory: lungs clear, wheezing (a few scattered especially on the right side) Cardiovascular: regular rate, rhythm, no murmur Gastrointestinal: non tender, soft Extremities: non-tender, normal inspection Neurologic/Psychiatric: alert, oriented x 3 Skin: normal color, warm/dry Progress/Results/Core Measures Suspected Sepsis SIRS Temperature: Pulse: Respiratory Rate: Laboratory Tests 09/01/19 02:56: White Blood Count 9.3 Blood Pressure / Mean: Laboratory Tests 09/01/19 02:56: Creatinine 0.90, Platelet Count 213, Total Bilirubin 0.4 Results/Orders Lab Results Laboratory Tests Test 09/01/19 02:56 Range/Units White Blood Count 9.3 4.3-11.0 10^3/uL Red Blood Count 3.83 L 4.35-5.85 10^6/uL Hemoglobin 11.5 11.5-16.0 G/DL Hematocrit 35 35-52 % Mean Corpuscular Volume 92 80-99 FL Mean Corpuscular Hemoglobin 30 25-34 PG Mean Corpuscular Hemoglobin Concent 33 32-36 G/DL Red Cell Distribution Width 14.8 H 10.0-14.5 % Platelet Count 213 130-400 10^3/uL Mean Platelet Volume 10.8 H 7.4-10.4 FL Neutrophils (%) (Auto) 60 42-75 % Lymphocytes (%) (Auto) 13 12-44 % Monocytes (%) (Auto) 6 0-12 % Eosinophils (%) (Auto) 20 H 0-10 % Basophils (%) (Auto) 1 0-10 % Neutrophils # (Auto) 5.6 1.8-7.8 X 10^3 Lymphocytes # (Auto) 1.2 1.0-4.0 X 10^3 Monocytes # (Auto) 0.6 0.0-1.0 X 10^3 Eosinophils # (Auto) 1.8 H 0.0-0.3 10^3/uL Basophils # (Auto) 0.1 0.0-0.1 10^3/uL Neutrophils % (Manual) 63 % Lymphocytes % (Manual) 16 % Monocytes % (Manual) 2 % Eosinophils % (Manual) 14 % Basophils % (Manual) 0 % Band Neutrophils 1 % Reactive Lymphocytes 4 % Toxic Granulation 1+ Poikilocytosis SLIGHT Anisocytosis SLIGHT Elliptocytes SLIGHT Sodium Level 136 135-145 MMOL/L Potassium Level 4.4 3.6-5.0 MMOL/L Chloride Level 104 98-107 MMOL/L Carbon Dioxide Level 21 21-32 MMOL/L Anion Gap 11 5-14 MMOL/L Blood Urea Nitrogen 17 7-18 MG/DL Creatinine 0.90 0.60-1.30 MG/DL Estimat Glomerular Filtration Rate 59 BUN/Creatinine Ratio 19 Glucose Level 159 H 70-105 MG/DL Calcium Level 9.3 8.5-10.1 MG/DL Corrected Calcium 9.2 8.5-10.1 MG/DL Total Bilirubin 0.4 0.1-1.0 MG/DL Aspartate Amino Transf (AST/SGOT) 18 5-34 U/L Alanine Aminotransferase (ALT/SGPT) 15 0-55 U/L Alkaline Phosphatase 113 40-136 U/L C-Reactive Protein High Sensitivity 0.14 0.00-0.50 MG/DL Total Protein 6.8 6.4-8.2 GM/DL Albumin 4.1 3.2-4.5 GM/DL My Orders Orders - GREY MORAN MD Chest 1 View, Ap/Pa Only (09/01/19 03:00) Cbc With Automated Diff (09/01/19 03:00) Comprehensive Metabolic Panel (09/01/19 03:00) Hs C Reactive Protein (09/01/19 03:00) Manual Differential (09/01/19 02:56) Ed Iv/Invasive Line Start (09/01/19 03:40) Prednisone Tablet (Deltasone Tablet) (09/01/19 04:30) Vital Signs/I&O 2/13/20 02:45 Temp 37.2 Pulse 86 Resp 20 B/P (MAP) 155/79 (104) Pulse Ox 97 Capillary Refill : Progress Note : Progress Note Seen and evaluated. IV, labs and chest x-ray ordered. Monitor patient. 0426: Chest x-ray negative. Overall patient is improved and resting peacefully. No indication for admission currently. She does not have a ride currently in we will be working on that but otherwise will watch her until ride is available is morning. O2 saturation 95% on room air with blood pressure 154/64 currently. Heart rate 74. Monitor patient. Prednisone 40 mg by mouth now. Diagnostic Imaging Diagonstic Imaging: Xray Plain Films/CT/US/NM/MRI: chest Comments No acute findings Departure Impression Primary Impression: COPD with exacerbation Disposition: HOME, SELF-CARE Condition: Improved Departure-Patient Inst. Decision time for Depature: 04:30 Referrals: JAY JAY THOMPSON MD (PCP/Family) Primary Care Physician Patient Instructions: COPD Including Emphysema (DC) Add. Discharge Instructions: Take medications as directed. Follow-up with your doctor for recheck and further evaluation in a few days. Return for worse pain, fever, vomiting, weakness, breathing problems or other concerns as needed. Scripts Prednisone (Prednisone) 20 Mg Tab 40 MG PO DAILY, #6 TAB 0 Refills Prov: GREY MORAN MD 09/01/19 Albuterol Sulfate (Proair Respiclick) 90 Mcg Aer.pow.ba 1-2 PUFF IH Q4H PRN for WHEEZING, #1 INHALER Prov: GREY MORAN MD 09/01/19 Copy Copies To 1: JAY JAY THOMPSON MD, TIMOTHY D MD Sep 01, 2019 03:07
[2019-09-01 03:12] LABS: BASOPHILS # (AUTO) 0.1 10^3/uL (0.0-0.1); BASOPHILS % (AUTO) 1 % (0-10); EOSINOPHILS # (AUTO) 1.8 10^3/uL (0.0-0.3); EOSINOPHILS % (AUTO) 20 % (0-10); HEMATOCRIT 35 % (35-52); HEMOGLOBIN 11.5 G/DL (11.5-16.0); LYMPHOCYTES # (AUTO) 1.2 X 10^3 (1.0-4.0); LYMPHOCYTES % (AUTO) 13 % (12-44); MEAN CORPUSCULAR HEMOGLOBIN 30 PG (25-34); MEAN CORPUSCULAR HGB CONC 33 G/DL (32-36); MEAN CORPUSCULAR VOLUME 92 FL (80-99); MEAN PLATELET VOLUME 10.8 FL (7.4-10.4); MONOCYTES # (AUTO) 0.6 X 10^3 (0.0-1.0); MONOCYTES % (AUTO) 6 % (0-12); NEUTROPHILS # (AUTO) 5.6 X 10^3 (1.8-7.8); NEUTROPHILS % (AUTO) 60 % (42-75); PLATELET COUNT 213 10^3/uL (130-400); RED CELL DISTRIBUTION WIDTH 14.8 % (10.0-14.5); WHITE BLOOD COUNT 9.3 10^3/uL (4.3-11.0)
[2019-09-01 03:34] LABS: ALBUMIN 4.1 GM/DL (3.2-4.5); BILIRUBIN,TOTAL 0.4 MG/DL (0.1-1.0); CALCIUM 9.3 MG/DL (8.5-10.1); CREATININE SERUM 0.9 MG/DL (0.60-1.30); POTASSIUM 4.4 MMOL/L (3.6-5.0); TOTAL PROTEIN 6.8 GM/DL (6.4-8.2)
[2019-09-01 03:44] LABS: ANISOCYTOSIS SLIGHT; BAND NEUTROPHILS 1 %; BASOPHILS % (MANUAL) 0 %; ELLIPT/OVALOCYTES SLIGHT; EOSINOPHILS % (MANUAL) 14 %; LYMPHOCYTES % (MANUAL) 16 %; MONOCYTES % (MANUAL) 2 %; NEUTROPHILS % (MANUAL) 63 %; POIKILOCYTOSIS SLIGHT; REACTIVE LYMPHOCYTES 4 %; TOXIC GRANULATION/VACUOLAZATIO 1+
[2019-09-01] MEDS ORDERED: predniSONE 20 MG TAB PO ONE (04:30)
[2019-09-01] MEDS ORDERED: ALBU90AE IH (04:32)
[2019-09-01] MEDS ORDERED: PRD20T PO (04:32)
[2019-09-01 04:45] VITALS: BP 144/72
--- NOTE | 2019-09-01 04:45 | NUR ---
VERBAL ORDER TO REMOVE SALINE LOCK FROM PATIENT. REMOVED AT THIS TIME.
[2019-09-01 04:47] VITALS: BP 154/64
--- NOTE | 2019-09-01 05:30 | NUR ---
PATIENT IS RESTING QUIETLY IN BED WITH THE CALL LIGHT IN REACH.
--- NOTE | 2019-09-01 06:00 | NUR ---
DR MORAN DISCUSSED DISCHARGE WITH PATIENT. SHE STATES SHE HAS NO ONE TO COME AND GET HER UNTIL 0800. PATIENT IS OFFERED A TAXI, HOWEVER PATIENT VERBALIZES SHE LIVES IN [facility]. ALSO PATIENT NEEDS TO [facility] A PRESCRIPTION HERE IN [place] SO DR MORAN GIVES PERMISSION FOR PATIENT TO REMAIN HERE IN THE ER UNTIL HER FRIEND ISSAC CAN COME PICK HER UP AND TAKE HER TO GET HER INHALER FROM [facility] BEFORE TAKING HER HOME TO [facility].
--- NOTE | 2019-09-01 07:00 | NUR ---
ISSAC CALLED AND STATES SHE WILL BE HERE TO GET PATIENT AT 0800 HRS
--- NOTE | 2019-09-01 07:01 | Diagnostic Imaging Report ---
INDICATION: Coughing started yesterday, patient was admitted two months ago for pneumonia. COMPARISON STUDY: Chest radiograph from 10 days ago. FINDINGS: Frontal view of the chest demonstrates lungs to be clear. Heart size and vascularity are normal. There are no pleural effusions. Calcification is seen in the aorta. IMPRESSION: There are no acute findings. Dictated by: Dictated on workstation # [id number]
[2019-09-01 08:16] VITALS: BP 163/88
== END 2019-09-01 08:16 | disposition home or self-care (01) ==
LOC: EDUNIT# 02:44 → ER 02:45
DX: J44.1 Chronic obstructive pulmonary disease with (acute) exacerbation (principal); I25.10 Atherosclerotic heart disease of native coronary artery without angina pectoris; I25.2 Old myocardial infarction; I10 Essential (primary) hypertension; E78.00 Pure hypercholesterolemia, unspecified; Z79.82 Long term (current) use of aspirin; Z86.73 Personal history of transient ischemic attack (TIA), and cerebral infarction without residual deficits; Z79.02 Long term (current) use of antithrombotics/antiplatelets; Z90.710 Acquired absence of both cervix and uterus; Z80.3 Family history of malignant neoplasm of breast; Z82.49 Family history of ischemic heart disease and other diseases of the circulatory system; Z79.51 Long term (current) use of inhaled steroids
CPT/HCPCS: 36415; 71045; 80053; 85007; 85027; 86141

== ENCOUNTER 2019-12-27 14:31 | Inpatient (IN) | payer MEDICARE, OTHER ==
[2019-12-27] VITALS (9 sets, daily range): BP systolic 129–186; BP diastolic 73–107
[~2019-12-27] VITALS: Ht 160 cm; Wt 56.3 kg
[~2019-12-27 14:31] MED LIST changes: +ALBU90AE IH; -MONT10TA24 PO; +MONT10TA26 PO
[2019-12-27 14:53] LABS: BASOPHILS % (AUTO) 0 % (0-10); EOSINOPHILS % (AUTO) 0 % (0-10); HEMATOCRIT 42 % (35-52); HEMOGLOBIN 13.9 G/DL (11.5-16.0); LYMPHOCYTES # (AUTO) 1.5 X 10^3 (1.0-4.0); LYMPHOCYTES % (AUTO) 11 % (12-44); MEAN CORPUSCULAR HEMOGLOBIN 28 PG (25-34); MEAN CORPUSCULAR HGB CONC 33 G/DL (32-36); MEAN CORPUSCULAR VOLUME 86 FL (80-99); MEAN PLATELET VOLUME 12.4 FL (7.4-10.4); MONOCYTES # (AUTO) 1.1 X 10^3 (0.0-1.0); MONOCYTES % (AUTO) 8 % (0-12); NEUTROPHILS # (AUTO) 10.9 X 10^3 (1.8-7.8); NEUTROPHILS % (AUTO) 81 % (42-75); PLATELET COUNT 194 10^3/uL (130-400); RED CELL DISTRIBUTION WIDTH 13.7 % (10.0-14.5); WHITE BLOOD COUNT 13.4 10^3/uL (4.3-11.0)
[2019-12-27 14:57] LABS: ALBUMIN 4.4 GM/DL (3.2-4.5); POTASSIUM 4.2 MMOL/L (3.6-5.0)
[2019-12-27 15:00] LABS: TOTAL PROTEIN 7.5 GM/DL (6.4-8.2)
[2019-12-27 15:02] LABS: BILIRUBIN,TOTAL 0.7 MG/DL (0.1-1.0)
[2019-12-27 15:03] LABS: CREATININE SERUM 1.06 MG/DL (0.60-1.30)
[2019-12-27 15:11] LABS: BILIRUBIN,URINE NEGATIVE (NEGATIVE); CLARITY,URINE CLEAR; COLOR,URINE YELLOW; GLUCOSE, URINE (UA) NEGATIVE (NEGATIVE); KETONES,URINE 1+ (NEGATIVE); LEUKOCYTE ESTERASE ,URINE NEGATIVE (NEGATIVE); NITRITE,URINE NEGATIVE (NEGATIVE); PH,URINE 6.5 (5-9); PROTEIN,URINE TRACE (NEGATIVE)
--- NOTE | 2019-12-27 15:15 | Diagnostic Imaging Report ---
PROCEDURE: CT head wo r/o stroke. TECHNIQUE: Multiple contiguous axial images were obtained through the brain without the use of intravenous contrast. Auto Exposure Controls were utilized during the CT exam to meet ALARA standards for radiation dose reduction. INDICATION: Altered mental status. COMPARISON is made with prior head CT from 12/02/2015. There is a new area of low density adjacent to the right frontal horn and body of the right lateral ventricle. This could represent an area of subacute ischemia. No sulcal effacement or midline shift is identified. No acute intra-axial or extra-axial hemorrhage is detected. Cisterns are patent. Visualized paranasal sinuses are clear. IMPRESSION: 1. No acute intracranial hemorrhage is identified. 2. Small area of low density adjacent to the right lateral ventricle, new since 2016. This could represent an area of subacute ischemia. MRI may be useful for further evaluation. If there is high clinical index of suspicion for acute stroke, CT angiography may be useful as well. Dictated by: Dictated on workstation # [id number]
[2019-12-27 15:17] LABS: BACTERIA,URINE NEGATIVE /HPF; HYALINE CASTS, URINE RARE /LPF; SQUAMOUS EPITHELIAL CELL,UR RARE /HPF
--- NOTE | 2019-12-27 15:27 | Diagnostic Imaging Report ---
HISTORY: Altered mental status. Stroke-like symptoms. TECHNIQUE: Single frontal view of the chest. COMPARISON: 09/01/2019. FINDINGS: Lung volumes are large. No focal consolidation is seen. There is no pleural effusion or pneumothorax. The cardiac silhouette is mildly prominent, likely accentuated by AP technique and stable since the prior study. There is calcific atherosclerosis. Cholecystectomy clips are noted. There also appear to be latanya across the abdomen. IMPRESSION: 1. Large lung volumes with no acute pulmonary abnormality seen. Dictated by: Dictated on workstation # [id number]
[2019-12-27] MEDS ORDERED: IOHEXOL 350 MG/ML 100 ML (OMNIPAQUE 350) VIAL IV ONE (16:00)
[2019-12-27] MEDS ORDERED: NS 100 ML (IVPB) BAG IV ONE (16:00)
[2019-12-27] MEDS ORDERED: HOLD METFORMIN - RECEIVED CONTRAST 20 ML VIAL IV SCH (16:00)
[2019-12-27 16:03] LABS: FIBRIN DEGRADATION PRODUCTS 1.58 UG/ML (0.00-0.49); PROTHROMBIN TIME PATIENT 13.3 SEC (12.2-14.7)
--- NOTE | 2019-12-27 16:32 | Diagnostic Imaging Report ---
PROCEDURE: CT angiography of the head and CT angiography of the neck with and without contrast. TECHNIQUE: Contiguous noncontrast images were obtained from the skull base through the vertex. After intravenous contrast administration, helical CT angiography of the neck was performed. Source data was reformatted into 3D MIP projections. Delayed post contrast acquisition was also obtained. Auto Exposure Controls were utilized during the CT exam to meet ALARA standards for radiation dose reduction. INDICATION: Strokelike symptoms. COMPARISON: Correlation is made with a noncontrast head CT performed earlier the same day. FINDINGS: There is a three-vessel branching pattern to the aortic arch. Moderate calcified plaque origin of the brachycephalic artery and left common carotid artery is noted. Both common carotid arteries are widely patent. There is some calcified plaque at the carotid bifurcations bilaterally. There is moderate calcified plaque in the carotid siphons bilaterally as well. The M1 and M2 branches of the middle cerebral arteries bilaterally are widely patent. No thromboembolism or filling defect is seen. The right and left anterior cerebral arteries are widely patent. The basilar artery is patent. Bilateral posterior cerebral arteries appear to be patent. A moderate amount of calcified plaque in the distal vertebral arteries bilaterally is seen. Vertebral arteries are codominant. No high-grade stenosis or occlusion is seen. IMPRESSION: There is some calcified plaque in bilateral carotid systems. No large branch occlusion or thromboembolism is detected. Dictated by: Dictated on workstation # [id number]
[2019-12-27] MEDS ORDERED: LABETALOL HCL 20 MG/4 ML VIAL IV ONE (17:15)
--- NOTE | 2019-12-27 17:38 | ED Neurological Problem ---
General Chief Complaint: Neuro-Stroke Like Symptoms Stated Complaint: STROKE LIKE SYMPTOMS Nursing Triage Note: PT BROUGHT IN BY [facility] FROM HOME WITH COMPLAINT OF ALTERED MENTAL STATUS. LKWT 1115. Nursing Sepsis Screen: No Definite Risk Source: patient, family, EMS, old records Exam Limitations: no limitations History of Present Illness Date Seen by Provider: Dec 27, 2019 Time Seen by Provider: 14:37 Initial Comments This 89-year-old woman presents to the emergency room with altered mental status, aphasia and suspicion for stroke. She arrives via [facility]. Last known well time is not certain. She interacted with a neighbor around 11:15. The neighbor brought the mail in and hollered down the lopez at her. The patient replied "I'll be out in a minute to get it", but the neighbor did not actually physically interact with her at that time. Patient was then found lower with a aphasia by the same neighbors and EMS was activated. Patient has difficulty understanding and/or following commands. She also appears to have expressive aphasia. There appeared to be no focal motor deficits. She is not a TPA candidate due to uncertain time of onset of symptoms. Patient lives alone and is independent with some difficulty. She is quite hypertensive on arrival with some blood pressures over 200. Allergies and Home Medications Allergies Coded Allergies: No Known Drug Allergies (Unverified , 06/19/19) Home Medications Albuterol Sulfate 90 Mcg Aer.pow.ba, 1-2 PUFF IH Q4H PRN for WHEEZING Prescribed by: GREY MORAN on 09/01/19 0432 Albuterol/Ipratropium 4 Gm Aero, 1 PUFF IH Q6H PRN for SHORTNESS OF BREATH, (Reported) Aspirin 81 Mg Tablet.dr, 81 MG PO HS, (Reported) Atenolol 50 Mg Tablet, 50 MG PO HS, (Reported) LAST FILLED #90 04-19-19 Bimatoprost 2.5 Ml Drops, 1 DROP OD HS, (Reported) Cetirizine HCl 10 Mg Tablet, 10 MG PO HS, (Reported) Fluticasone Propionate 9.9 Ml [place].susp, 1 SPRAY NS DAILY PRN for CONGESTION, (Reported) Fluticasone/Salmeterol 1 Each Blst.w.dev, 1 PUFF IH BID, (Reported) Lisinopril 10 Mg Tablet, 10 MG PO HS, (Reported) LAST FILLED 02-10-2019 #90 Montelukast Sodium 10 Mg Tablet, 10 MG PO HS, (Reported) Oseltamivir Phosphate 75 Mg Cap, 75 MG PO DAILY Prescribed by: FRAN PINEDA on 08/13/19 1245 Pantoprazole Sodium 40 Mg Tablet.dr, 40 MG PO DAILY, (Reported) Potassium Chloride 10 Meq Tab.er.prt, 10 MEQ PO DAILY, (Reported) UNKNOWN LAST FILLED DATE, STATES SHE USES HER HUSBANDS SUPPLY Prednisone 10 Mg Tab.ds.pk, 10 MG PO DAILY Take 6 tabs(60mg)daily,decrease by 1 tab(10MG)daily. Prescribed by: FRAN PINEDA on 08/13/19 1246 Prednisone 20 Mg Tab, 40 MG PO DAILY Prescribed by: GREY MORAN on 09/01/19 0432 Simvastatin 40 Mg Tablet, 40 MG PO HS, (Reported) LAST FILLED 01-25-2019 #90 Sucralfate 1 Gm Tablet, 1 GM PO ACHS, (Reported) Vit C/E/Zn/Coppr/Lutein/Zeaxan 1 Each Capsule, 1 CAP PO BID, (Reported) [Nasal Rinse] , NS QID PRN for DRY NOSE, (Reported) MIXES PER DR. OSHEA: 1 TBSP BAKING SODA 1/4 TSP SALT 1 CUP WARM WATER SQUIRTS IN EACH NOSTRIL WITH SYRINGE 4X DAILY NEEDED Patient Home Medication List Home Medication List Reviewed: Yes Review of Systems Review of Systems Constitutional: no symptoms reported Eyes: No Symptoms Reported Ears, Nose, Mouth, Throat: no symptoms reported Respiratory: no symptoms reported Cardiovascular: see HPI : No Musculoskeletal: no symptoms reported Skin: no symptoms reported Psychiatric/Neurological: See HPI Endocrine: No Symptoms Reported Past Yklhoyg-Elywjh-Dwbvsy Hx Past Med/Social Hx: Reviewed Nursing Past Med/Soc Hx Patient Social History Alcohol Use: Denies Use Recreational Drug Use: No Smoking Status: Never a Smoker 2nd Hand Smoke Exposure: No Recent Foreign Travel: No Contact w/Someone Who Travel: No Recent Infectious Disease Expo: No Recent Hopitalizations: No Immunizations Up To Date Tetanus Booster (TDap): More than 5yrs PED Vaccines UTD: Yes Date of Pneumonia Vaccine: Apr 19, 2016 Date of Influenza Vaccine: May 10, 2019 Seasonal Allergies Seasonal Allergies: Yes Past Medical History Surgeries: Yes Appendectomy, Cardiac, Gallbladder, Hysterectomy, Tonsillectomy Respiratory: Yes (BRONCHITIS) Currently Using CPAP: No Currently Using BIPAP: No Cardiac: Yes Coronary Artery Disease, Heart Attack, High Cholesterol, Hypertension 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 PT REFUSED EGD.) Gastrointestinal Bleed Musculoskeletal: No Endocrine: No HEENT: No Cancer: No Psychosocial: No Integumentary: No Blood Disorders: No Family Medical History Reviewed Nursing Family Hx Congenital heart disease 19 FATHER G8 BROTHER FH: breast cancer G8 SISTER Physical Exam Vital Signs Vital Signs - First Documented 12/27/19 14:31 Temp 37.0 Pulse 86 Resp 20 B/P (MAP) 191/91 (124) Pulse Ox 100 O2 Delivery Room Air Capillary Refill : Less Than 3 Seconds Height, Weight, BMI Height: 5'5.00" Weight: 119lbs. 9.0oz. [id number]; 22.00 BMI Method:Stated General Appearance: WD/WN, no apparent distress HEENT: PERRL/EOMI, normal ENT inspection Neck: normal inspection Respiratory: lungs clear, normal breath sounds, no respiratory distress, no accessory muscle use Cardiovascular: regular rate, rhythm, no edema, no murmur Gastrointestinal: normal bowel sounds, non tender, soft Extremities: normal inspection, no pedal edema, no calf tenderness Neurologic/Psychiatric: alert, motor weakness (bilateral lower extremity weakness, generalized weakness), disoriented x 3 Crainal Nerves: abnormal speech, other (left-sided gaze preference) Coordination/Gait: other (did not follow commands to appropriately assess finger to nose) Motor/Sensory: no sensory deficit Skin: normal color, warm/dry Stroke NIH Stroke Scale Assessment Level of Consciousness: 0=Alert (0), Level of Consciousness-Questions: 2=Answer neither question (2), LOC Commands: 1=Performs one task (1), Visual [place]: 0=No visual loss (0), Facial Movement (Facial Paresis): 0=Normal symmetrical mnt (0), Motor Function-Arms Right: 0=No drift (0), Motor Function-Arms Left: 0=No drift (0), Motor Function-Legs Right: 2=Some effort/gravity (2), Motor Function-Legs Left: 2=Some effort/gravity (2), Limb Ataxia: 1=Present in one limb (1), Sensory: 0=Normal:no loss (0), Best Language: 2=Severe aphasia (2), Dysarthria: 2=Severe dysarthria (2), Ex tinction & Inattention: 2=ProfoundHemiInattention (2), Total: Progress/Results/Core Measures Results/Orders Lab Results Laboratory Tests Test 12/27/19 14:20 12/27/19 14:43 12/27/19 15:05 12/27/19 15:41 Range/Units White Blood Count 13.4 H 4.3-11.0 10^3/uL Red Blood Count 4.89 4.35-5.85 10^6/uL Hemoglobin 13.9 11.5-16.0 G/DL Hematocrit 42 35-52 % Mean Corpuscular Volume 86 80-99 FL Mean Corpuscular Hemoglobin 28 25-34 PG Mean Corpuscular Hemoglobin Concent 33 32-36 G/DL Red Cell Distribution Width 13.7 10.0-14.5 % Platelet Count 194 130-400 10^3/uL Mean Platelet Volume 12.4 H 7.4-10.4 FL Neutrophils (%) (Auto) 81 H 42-75 % Lymphocytes (%) (Auto) 11 L 12-44 % Monocytes (%) (Auto) 8 0-12 % Eosinophils (%) (Auto) 0 0-10 % Basophils (%) (Auto) 0 0-10 % Neutrophils # (Auto) 10.9 H 1.8-7.8 X 10^3 Lymphocytes # (Auto) 1.5 1.0-4.0 X 10^3 Monocytes # (Auto) 1.1 H 0.0-1.0 X 10^3 Eosinophils # (Auto) 0.0 0.0-0.3 10^3/uL Basophils # (Auto) 0.0 0.0-0.1 10^3/uL Sodium Level 138 135-145 MMOL/L Potassium Level 4.2 3.6-5.0 MMOL/L Chloride Level 103 98-107 MMOL/L Carbon Dioxide Level 21 21-32 MMOL/L Anion Gap 14 5-14 MMOL/L Blood Urea Nitrogen 16 7-18 MG/DL Creatinine 1.06 0.60-1.30 MG/DL Estimat Glomerular Filtration Rate 49 BUN/Creatinine Ratio 15 Glucose Level 116 H 70-105 MG/DL Calcium Level 10.0 8.5-10.1 MG/DL Corrected Calcium 9.7 8.5-10.1 MG/DL Total Bilirubin 0.7 0.1-1.0 MG/DL Aspartate Amino Transf (AST/SGOT) 37 H 5-34 U/L Alanine Aminotransferase (ALT/SGPT) 19 0-55 U/L Alkaline Phosphatase 104 40-136 U/L Troponin I 0.060 H <0.028 NG/ML Total Protein 7.5 6.4-8.2 GM/DL Albumin 4.4 3.2-4.5 GM/DL Glucometer 114 H 70-110 MG/DL Urine Color YELLOW Urine Clarity CLEAR Urine pH 6.5 5-9 Urine Specific [place] 1.015 L 1.016-1.022 Urine Protein TRACE H NEGATIVE Urine Glucose (UA) NEGATIVE NEGATIVE Urine Ketones 1+ H NEGATIVE Urine Nitrite NEGATIVE NEGATIVE Urine Bilirubin NEGATIVE NEGATIVE Urine Urobilinogen 0.2 < = 1.0 MG/DL Urine Leukocyte Esterase NEGATIVE NEGATIVE Urine RBC (Auto) NEGATIVE NEGATIVE Urine RBC NONE /HPF Urine WBC NONE /HPF Urine Squamous Epithelial Cells RARE /HPF Urine Crystals NONE /LPF Urine Bacteria NEGATIVE /HPF Urine Casts PRESENT /LPF Urine Hyaline Casts RARE /LPF Urine Mucus SMALL H /LPF Urine Culture Indicated NO Prothrombin Time 13.3 12.2-14.7 SEC INR Comment 1.0 0.8-1.4 Activated Partial Thromboplast Time 29 24-35 SEC D-Dimer 1.58 H 0.00-0.49 UG/ML My Orders Orders - NIDIA SALOMON MD Cbc With Automated Diff (12/27/19 14:45) Protime With Inr (12/27/19 14:45) Partial Thromboplastin Time (12/27/19 14:45) Comprehensive Metabolic Panel (12/27/19 14:45) Fibrin Degradation Products (12/27/19 14:45) Troponin I (12/27/19 14:45) Ua Culture If Indicated (12/27/19 14:45) Chest 1 View, Ap/Pa Only (12/27/19 14:45) Catheter(Urinary) Insert & Ass 03,15 (12/27/19 14:45) Ekg Tracing (12/27/19 14:45) Nothing By Mouth (12/27/19 Dinner) Accucheck Stat ONCE (12/27/19 14:45) Ed Iv/Invasive Line Start (12/27/19 14:45) Ed Iv/Invasive Line Start (12/27/19 14:45) Vital Signs Stroke Patient Q15M (12/27/19 14:45) Ct Head Wo-R/O Stroke (12/27/19 14:45) O2 (12/27/19 14:45) Intake & Output 06,14,22 (12/27/19 14:45) Monitor-Rhythm Ecg Trace Only (12/27/19 14:45) Dysphagia Screening Tool (12/27/19 14:45) Ct Angio Head/Neck (12/27/19 15:41) Iohexol Injection (Omnipaque 350 Mg/Ml 1 (12/27/19 16:00) Received Contrast (Hold Metformin- Contr (12/27/19 16:00) Ns (Ivpb) (Sodium Chloride 0.9% Ivpb Bag (12/27/19 16:00) Labetalol Injection (Normodyne Injection (12/27/19 17:15) Ekg Tracing (12/27/19 17:38) Medications Given in ED Current Medications Medications Dose Ordered Sig/Rigo Route Start Time Stop Time Status Last Admin Dose Admin Labetalol HCl 10 mg ONCE ONCE IV 12/27/19 17:15 12/27/19 17:16 DC 12/27/19 17:36 10 MG Sodium Chloride 100 ml ONCE ONCE IV 12/27/19 16:00 12/27/19 16:01 DC 12/27/19 16:21 80 ML Vital Signs/I&O 12/27/19 14:31 Temp 37.0 Pulse 86 Resp 20 B/P (MAP) 191/91 (124) Pulse Ox 100 O2 Delivery Room Air Blood Pressure Mean: 124 FSBG Bedside Testing Finger Stick Blood Glucose: 114 Progress Progress Note : Progress Note Stroke activation was paged. Patient was found to have a possible subacute stroke in the right parietal region of unknown age. I discussed the case with Dr. Howell at [facility]. She recommended CT angiogram. No occlusive disease was identified. I discussed the case with patient's sister who is her decision maker. She states patient would want a DO NOT RESUSCITATE status if she were able to comprehend the situation. She is in agreement with admission. Labetalol 10 mg IV was given for hypertension with some modest improvement. Initial ECG Impression Date: Dec 27, 2019 Initial ECG Impression Time: 14:54 Initial ECG Rate: 86 Initial ECG Rhythm: Normal Sinus Initial ECG Impression: Normal Comment Sinus rhythm with no ST elevation. Minimal ST depression. No definite ischemic changes. No abnormal intervals or axis deviation. Diagnostic Imaging Diagonstic Imaging: Xray Plain Films/CT/US/NM/MRI: head Comments CT head viewed by me, discussed with radiologist, and report reviewed. See report below: NAME: MARV CUEVAS [facility] REC#: [id number] PT STATUS: REG ER : 1930 PHYSICIAN: NIDIA SALOMON MD ADMIT DATE: 12/27/19/ER Signed Date of Exam:12/27/19 CT HEAD WO-R/O STROKE PROCEDURE: CT head wo r/o stroke. TECHNIQUE: Multiple contiguous axial images were obtained through the brain without the use of intravenous contrast. Auto Exposure Controls were utilized during the CT exam to meet ALARA standards for radiation dose reduction. INDICATION: Altered mental status. COMPARISON is made with prior head CT from 12/02/2015. There is a new area of low density adjacent to the right frontal horn and body of the right lateral ventricle. This could represent an area of subacute ischemia. No sulcal effacement or midline shift is identified. No acute intra-axial or extra-axial hemorrhage is detected. Cisterns are patent. Visualized paranasal sinuses are clear. IMPRESSION: 1. No acute intracranial hemorrhage is identified. 2. Small area of low density adjacent to the right lateral ventricle, new since 2015. This could represent an area of subacute ischemia. MRI may be useful for further evaluation. If there is high clinical index of suspicion for acute stroke, CT angiography may be useful as well. Dictated by: Dictated on workstation # [id number] Dict: 12/27/19 1504 Trans: 12/27/191932 [facility] [id number] Interpreted by: HEMAL PEGUERO MD Electronically signed by: HEMAL PEGUERO MD 12/27/191932 Diagonstic Imaging: Xray Plain Films/CT/US/NM/MRI: chest Comments NAME: MARV CUEVAS [facility] REC#: [id number] PT STATUS: REG ER : 1930 PHYSICIAN: NIDIA SALOMON MD ADMIT DATE: 12/27/19/ER Signed Date of Exam:12/27/19 CHEST 1 VIEW, AP/PA ONLY HISTORY: Altered mental status. Stroke-like symptoms. TECHNIQUE: Single frontal view of the chest. COMPARISON: 09/01/2019. FINDINGS: Lung volumes are large. No focal consolidation is seen. There is no pleural effusion or pneumothorax. The cardiac silhouette is mildly prominent, likely accentuated by AP technique and stable since the prior study. There is calcific atherosclerosis. Cholecystectomy clips are noted. There also appear to be latanya across the abdomen. IMPRESSION: 1. Large lung volumes with no acute pulmonary abnormality seen. Dictated by: Dictated on workstation # [id number] Dict: 12/27/19 1523 Trans: 12/27/19 1657 [facility] [id number] Interpreted by: CHIQUITA QUINTANILLA MD Electronically signed by: CHIQUITA QUINTANILLA MD 12/27/19 1657 Diagonstic Imaging: CT Plain Films/CT/US/NM/MRI: other (angiogram head and neck) Comments NAME: MARV CUEVAS [facility] REC#: [id number] PT STATUS: REG ER : 1930 PHYSICIAN: NIDIA SALOMON MD ADMIT DATE: 12/27/19/ER Signed Date of Exam:12/27/19 CT ANGIO HEAD/NECK PROCEDURE: CT angiography of the head and CT angiography of the neck with and without contrast. TECHNIQUE: Contiguous noncontrast images were obtained from the skull base through the vertex. After intravenous contrast administration, helical CT angiography of the neck was performed. Source data was reformatted into 3D MIP projections. Delayed post contrast acquisition was also obtained. Auto Exposure Controls were utilized during the CT exam to meet ALARA standards for radiation dose reduction. INDICATION: Strokelike symptoms. COMPARISON: Correlation is made with a noncontrast head CT performed earlier the same day. FINDINGS: There is a three-vessel branching pattern to the aortic arch. Moderate calcified plaque origin of the brachycephalic artery and left common carotid artery is noted. Both common carotid arteries are widely patent. There is some calcified plaque at the carotid bifurcations bilaterally. There is moderate calcified plaque in the carotid siphons bilaterally as well. The M1 and M2 branches of the middle cerebral arteries bilaterally are widely patent. No thromboembolism or filling defect is seen. The right and left anterior cerebral arteries are widely patent. The basilar artery is patent. Bilateral posterior cerebral arteries appear to be patent. A moderate amount of calcified plaque in the distal vertebral arteries bilaterally is seen. Vertebral arteries are codominant. No high-grade stenosis or occlusion is seen. IMPRESSION: There is some calcified plaque in bilateral carotid systems. No large branch occlusion or thromboembolism is detected. Dictated by: Dictated on workstation # [id number] Dict: 12/27/19 1623 Trans: 12/27/191931 [facility] [id number] Interpreted by: HEMAL PEGUERO MD Electronically signed by: HEMAL PEGUERO MD 12/27/191931 Departure Communication (Admissions) Time/Spoke to Admitting Phy: 17:05 Dr. Pineda Time/Spoke to Consulting Phy: 17:00 Dr. Caballero Impression Primary Impression: CVA (cerebral vascular accident) Qualified Codes: I63.9 - Cerebral infarction, unspecified Additional Impressions: Altered mental status Qualified Codes: R41.82 - Altered mental status, unspecified Elevated troponin Aphasia Disposition: ADMITTED INPATIENT Condition: Stable Admissions Decision to Admit Reason: Admit from ER (General) Decision to Admit/Date: Dec 27, 2019 Time/Decision to Admit Time: 14:45 Departure-Patient Inst. Referrals: JAY JAY THOMPSON MD (PCP) Primary Care Physician NIDIA SALOMON MD Dec 27, 2019 17:38
--- OUTSIDE RECORDS SUMMARY | 2019-12-27 17:58 | XMS REPORT | Continuity of Care Document ---
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 Medication Details Route Status Patient Instructions Prescription Expires Prescript ion Number Last Dispense Date Ordering Pr ovider Order Date Source ADVAIR DISKUS (FLUTICASONE/SALMETEROL), 250-50MCG, DISK W/DEV, INHALATION, GLAXOSMITHKLINE, 60 ea. BLIST PACK Active [id number] 11/2018 JAY JAY THOMPSON 01/21/2019 [facility] ADVAIR DISKUS (FLUTICASONE/SALMETEROL), 250-50MCG, DISK W/DEV, INHALATION, GLAXOSMITHKLINE, 60 ea. BLIST PACK Active [id number] 09/2018 JAY JAY THOMPSON 05/02/2019 [facility] ADVAIR DISKUS (FLUTICASONE/SALMETEROL), 250-50MCG, DISK W/DEV, INHALATION, GLAXOSMITHKLINE, 60 ea. BLIST PACK Active [id number] 07/2019 JAY JAY THOMPSON 07/20/2019 [facility] ADVAIR DISKUS (FLUTICASONE/SALMETEROL), 250-50MCG, DISK W/DEV, INHALATION, GLAXOSMITHKLINE, 60 ea. BLIST PACK Active [id number] JAY JAY THOMPSON 10/19/2019 [facility] AMOXICILLIN (AMOXICILLIN), 500 MG, CAPSU LE, ORAL, SANDOZ, 500 ea. BOTTLE Active [id number] 05/25/2019 JAY 05/28/2019 [facility] Trans action Service Facility AMOXICILLIN (AMOXICILLIN), 500 MG, CAPSU LE, ORAL, SANDOZ, 500 ea. BOTTLE Active [id number] 05/16/2019 MIRIAM, 05/17/2019 [facility] Service Facility ATENOLOL (ATENOLOL), 50 MG, TABLET, ORAL , [employer] 1000 ea. BOTTLE Active [id number] 08/12/2019 [facility] 08/12/2019 [facility] Data Trans action Service Facility ATENOLOL (ATENOLOL), 50 MG, TABLET, ORAL , [employer] 1000 ea. BOTTLE Active [id number] 11/15/2019 [facility] 11/15/2019 [facility] Data Trans action Service Facility ATENOLOL (ATENOLOL), 50MG, TABLET, ORAL, [employer], 1000 ea. BOTTLE Active [id number] 2019 JANEL, 05/01/2019 [facility] AZITHROMYCIN (azithromycin), 250 MG, TAB LET, ORAL, AUROBINDO [employer]ARM, 30 ea. BOTTLE Active [id number] 09/08/2019 JAY, 09/09/2019 [facility] Facility BENZONATATE (BENZONATATE), 100MG, CAPSUL E, ORAL, ZYDUS PHARMACEU, 100 ea. BOTTLE Active [id number] 06/22/2019 [facility], 06/23/2019 Pharmacy Data Trans action Service Facility BENZONATATE (benzonatate), 200 MG, CAPSU LE, ORAL, AlereS PHARMA, 100 ea. BOTTLE Active [id number] 03/28/2019 JAY, 05/10/2019 [facility] Data Trans action Service Facility CETIRIZINE HCL (cetirizine HCl), 10 MG, TABLET, ORAL, MAJOR PHARMACEU, 90 ea. BOTTLE Active [id number] 01/21/2019 JAY JAY THOMPSON 01/21/2019 [facility] CETIRIZINE HCL (cetirizine HCl), 10 MG, TABLET, ORAL, MAJOR PHARMACEU, 90 ea. BOTTLE Active [id number] 04/21/2019 JAY JAY THOMPSON 05/02/2019 [facility] CETIRIZINE HCL (cetirizine HCl), 10 MG, TABLET, ORAL, MAJOR PHARMACEU, 90 ea. BOTTLE Active [id number] 07/20/2019 JAY JAY THOMPSON 07/20/2019 [facility] CETIRIZINE HCL (cetirizine HCl), 10 MG, TABLET, ORAL, MAJOR PHARMACEU, 90 ea. BOTTLE Active [id number] 10/18/2019 JAY JAY THOMPSON 10/19/2019 [facility] Transaction [facility] Facility CHOLESTYRAMINE (cholestyramine (with sug ar)), 4 G, POWD PACK, ORAL, ZYDUS PHARMACEU, 60 ea. PACKET Active [id number] 10/19/2019 [facility], 10/20/2019 [facility] COMBIVENT RESPIMAT (IPRATROPIUM/ALBUTERO L SULFATE), 20-100 MCG, MIST INHAL, INHALATION, BOEHRINGER ING., 4 g AER W/ADAP Active [id number] 10/2018 CAROLA SERRATO 05/25/2019 [facility] COMBIVENT RESPIMAT (IPRATROPIUM/ALBUTERO L SULFATE), 20-100 MCG, MIST INHAL, INHALATION, BOEHRINGER ING., 4 g AER W/ADAP Active [id number] 07/2018 [facility], 05/21/2019 [facility] DOXYCYCLINE HYCLATE (DOXYCYCLINE HYCLATE ), 100 MG, CAPSULE, ORAL, [employer]uls[employer]INC., 500 ea. BOTTLE Active [id number] 04/19/2019 TIM[facility], 05/01/2019 [facility] Facility FLUCONAZOLE (FLUCONAZOLE), 150MG, TABLET , ORAL, Atooma PHARMA, 1 ea. BLIST PACK Active [id number] 03/30/2019 AMA, 04/30/2019 [facility] Facility LISINOPRIL (LISINOPRIL), 10 MG, TABLET, ORAL, EXELAN PHARMACE, 1000 ea. BOTTLE Active [id number] 08/15/2019 [facility] 08/16/2019 [facility] Data Trans action Service Facility LISINOPRIL (LISINOPRIL), 10 MG, TABLET, ORAL, EXELAN PHARMACE, 1000 ea. BOTTLE Active [id number] 11/14/2019 [facility] 11/15/2019 [facility] Data Trans action Service Facility MONTELUKAST SODIUM (MONTELUKAST SODIUM), 10 MG, TABLET, ORAL, CAMBER PHARMACE, 1000 ea. BOTTLE Active [id number] 05/18/2019 AMA, 05/19/2019 [facility] Transaction [facility] Facility MONTELUKAST SODIUM (MONTELUKAST SODIUM), 10 MG, TABLET, ORAL, CAMBER PHARMACE, 1000 ea. BOTTLE Active [id number] 07/28/2019 AMA, 07/30/2019 [facility] Transaction [facility] Facility MONTELUKAST SODIUM (MONTELUKAST SODIUM), 10 MG, TABLET, ORAL, CAMBER PHARMACE, 1000 ea. BOTTLE Active [id number] 12/10/2018 JAY, 12/10/2018 [facility] Transaction [facility] Facility MONTELUKAST SODIUM (MONTELUKAST SODIUM), 10 MG, TABLET, ORAL, CAMBER PHARMACE, 1000 ea. BOTTLE Active [id number] 02/10/2019 JAY, 02/11/2019 [facility] Data Transaction Service Facility MONTELUKAST SODIUM (MONTELUKAST SODIUM), 10 MG, TABLET, ORAL, CAMBER PHARMACE, 1000 ea. BOTTLE Active [id number] 03/11/2019 JAY, 05/07/2019 [facility] Data Transaction Service Facility OSELTAMIVIR PHOSPHATE (oseltamivir phosp hate), 75 MG, CAPSULE, ORAL, ZYDUS PHARMACEU, 10 ea. BLIST PACK Active [id number] 08/13/2019 MIRIAM, 08/13/2019 [facility] Transaction [facility] Facility PANTOPRAZOLE SODIUM (pantoprazole sodium ), 40 MG, TABLET DR, ORAL, AMNEAL PHARMACE, 90 ea. BOTTLE Active [id number] 08/12/2019 JAY JAY THOMPSON 08/12/2019 [facility] Transaction [facility] Facility PANTOPRAZOLE SODIUM (PANTOPRAZOLE SODIUM ), 40 MG, TABLET DR, ORAL, TORRENT PHARMAC, 90 ea. BOTTLE Active [id number] 02/13/2019 JAY JAY THOMPSON 02/16/2019 [facility] Transaction [facility] Facility PREDNISONE (PREDNISONE), 10MG, TAB DS PK , ORAL, QUALITEST, 21 ea. DOSE-PACK Active [id number] 08/13/2019 MIRIAM, 08/13/2019 [facility] Data Trans action Service Facility PREDNISONE (prednisone), 20 MG, TABLET, ORAL, [employer], 500 ea. BOTTLE Active [id number] 06/22/2019 [facility], 06/23/2019 Pharmacy Data Trans action Service Facility PREDNISONE (PREDNISONE), 20MG, TABLET, O RAL, [employer] 500 ea. BOTTLE Active [id number] 09/01/2019 [facility], 09/02/2019 [facility] Data Trans action Service Facility PREDNISONE (PREDNISONE), 20MG, TABLET, O RAL, [employer]., 500 ea. BOTTLE Active [id number] 05/18/2019 [facility], 05/19/2019 [facility] Trans [facility] Facility PREDNISONE (PREDNISONE), 20MG, TABLET, O RAL, [employer]., 500 ea. BOTTLE Active [id number] 10/15/2018 [facility]MA, 10/15/2018 [facility] Data Trans action Service Facility PROAIR RESPICLICK (ALBUTEROL SULFATE), 9 0 MCG, AER POW BA, INHALATION, [employer], 1 ea. AER W/ADAP Active [id number] 09/01/2019 [facility], 09/02/2019 [facility] Data Transaction [facility] Facility SIMVASTATIN (SIMVASTATIN), 40 MG, TABLET , ORAL, [employer] [facility], 1000 ea. BOTTLE Active [id number] 08/12/2019 JANELAP 08/12/2019 [facility] Data Trans action Service Facility SIMVASTATIN (SIMVASTATIN), 40 MG, TABLET , ORAL, [employer] [facility], 1000 ea. BOTTLE Active [id number] 11/15/2019 JANEL,AP 11/15/2019 Pharm[facility] Data Trans action Service Facility SUCRALFATE (sucralfate), 1 G, TABLET, OR AL, [employer] 100 ea. BOTTLE Active [id number] 02/13/2019 JAY JAY THOMPSON 02/16/2019 [facility] Data Trans action Service Facility SUCRALFATE (sucralfate), 1 G, TABLET, OR AL, [employer] 100 ea. BOTTLE Active [id number] 08/12/2019 JAY JAY THOMPSON 08/12/2019 Pharm[facility] Data Trans action Service Facility SUCRALFATE (sucralfate), 1 G, TABLET, OR AL, [employer] 100 ea. BOTTLE Active [id number] 11/10/2019 JAY JAY THOMPSON 11/10/2019 Pharmacy Data Trans action Service [facility] Allergies, Adverse Reactions, Alerts No Known Medication Allergies Immunizations No Data Provided for This Section Results No Data Provided for This Section Vital Signs No Data Provided for This Section Encounters No Data Provided for This Section Procedures No Data Provided for This Section Social History Combined list of available smoking, tobacco, and other social history on record at Department of Defense and/or Veterans Affairs facilities. The included entrie s comply with the patient's data sharing authorizations. Social History Type Response Date Comment Source This section is an empty social history section. DoD Assessment and Plan No Data Provided for This Section Plan of Care No Data Provided for This Section Family History No Data Provided for This Section Advance Directives No Data Provided for This Section Functional Status No Data Provided for This Section
--- OUTSIDE RECORDS SUMMARY | 2019-12-27 17:59 | XMS REPORT | Continuity of Care Document ---
Author Organization Unknown Address Unknown Phone Unavailable Allergies Active Description Code Type Severity Reaction Onset Reported/Identified Relationship to Patient Clinical Status Yes No Known Drug Allergies [id number] Drug Allergy Unknown N/A 06/19/2019 Medications There [...] W/O STRIKE 12/02/2015 CAROLA GRAF Ot Y92.[address] 12/02/2015 CAROLA GRAF Ot Y99.8 [...] W/O STRIKE 12/04/2015 CAROLA GRAF Ot Y92.[address] 12/04/2015 CAROLA GRAF Ot Y99.8 OTHER EXTERNAL CAUSE STATUS 12/04/2015 CAROLA GRAF Ot Z79.82 UTILITIES ESTIMATOR AND DRAFTER (CURRENT) USE OF ASPIRIN 12/08/2015 CAROLA GRAF [...] W/O STRIKE 12/08/2015 CAROLA GRAF Ot Y92.[address] 12/08/2015 CAROLA GRAF Ot Y99.8 OTHER EXTERNAL CAUSE STATUS 12/08/2015 CAROLA GRAF Ot Z79.82 UTILITIES ESTIMATOR AND DRAFTER (CURRENT) USE OF ASPIRIN 12/14/2015 JOYCE KAPLAN [...] MAMMO-MALIGN NEOPLASM OF [place] 02/19/2016 GILLIAN CUNNINGHAM CANDY ATTENDANT Ot R10.31 RIGHT LOWER QUADRANT PAIN 02/19/2016 GILLIAN CUNNINGHAM CANDY ATTENDANT Ot R10.84 GENERALIZED ABDOMINAL PAIN 03/11/2016 GILLIAN CUNNINGHAM CANDY ATTENDANT Ot R10.31 RIGHT LOWER QUADRANT PAIN 03/11/2016 GILLIAN CUNNINGHAM CANDY ATTENDANT Ot R10.84 GENERALIZED ABDOMINAL PAIN 03/21/2016 GILLIAN CUNNINGHAM CANDY ATTENDANT Ot R10.31 RIGHT LOWER QUADRANT PAIN 03/21/2016 GILLIAN CUNNINGHAM CANDY ATTENDANT Ot R10.84 GENERALIZED ABDOMINAL PAIN 05/07/2016 Ot [...] MAMMO-MALIGN NEOPLASM OF [place] 05/07/2016 GILLIAN CUNNINGHAM CANDY ATTENDANT Ot R10.31 RIGHT LOWER QUADRANT PAIN 05/07/2016 GILLIAN CUNNINGHAM CANDY ATTENDANT Ot R10.84 GENERALIZED ABDOMINAL PAIN 05/07/2016 IVETTE [...] MAMMO-MALIGN NEOPLASM OF [place] 05/30/2016 GILLIAN CUNNINGHAM CANDY ATTENDANT Ot R10.31 RIGHT LOWER QUADRANT PAIN 05/30/2016 GILLIAN CUNNINGHAM CANDY ATTENDANT Ot R10.84 GENERALIZED ABDOMINAL PAIN 05/30/2016 MELISSA [...] MAMMO-MALIGN NEOPLASM OF [place] 06/06/2016 GILLIAN CUNNINGHAM CANDY ATTENDANT Ot R10.31 RIGHT LOWER QUADRANT PAIN 06/06/2016 GILLIAN CUNNINGHAM CANDY ATTENDANT Ot R10.84 GENERALIZED ABDOMINAL PAIN 06/06/2016 MELISSA [...] MAMMO-MALIGN NEOPLASM OF [place] 08/21/2016 GILLIAN CUNNINGHAM CANDY ATTENDANT Ot R10.31 RIGHT LOWER QUADRANT PAIN 08/21/2016 GILLIAN CUNNINGHAM CANDY ATTENDANT Ot R10.84 GENERALIZED ABDOMINAL PAIN 08/21/2016 MELISSA [...] MAMMO-MALIGN NEOPLASM OF [place] 10/01/2016 GILLIAN CUNNINGHAM CANDY ATTENDANT Ot R10.31 RIGHT LOWER QUADRANT PAIN 10/01/2016 GILLIAN CUNNINGHAM CANDY ATTENDANT Ot R10.84 GENERALIZED ABDOMINAL PAIN 10/01/2016 MELISSA ROCK, IVETTE Martinez Ot Z12.31 ENCNTR SCREEN MAMMOGRAM FOR MALIGNANT NE 05/21/2017 EMILY CAPELLAN CANDY ATTENDANT Ot Z12.31 ENCNTR SCREEN MAMMOGRAM FOR MALIGNANT [...] MAMMO-MALIGN NEOPLASM OF [place] 05/24/2017 GILLIAN CUNNINGHAM CANDY ATTENDANT Ot R10.31 RIGHT LOWER QUADRANT PAIN 05/24/2017 GILLIAN CUNNINGHAM CANDY ATTENDANT Ot R10.84 GENERALIZED ABDOMINAL PAIN 05/24/2017 MELISSA ROCK, IVETTE Martinez Ot Z12.31 ENCNTR SCREEN MAMMOGRAM FOR MALIGNANT NE 05/24/2017 EMILY CAPELLAN CANDY ATTENDANT Ot Z12.31 ENCNTR SCREEN MAMMOGRAM FOR MALIGNANT [...] MAMMO-MALIGN NEOPLASM OF [place] 05/24/2017 GILLIAN CUNNINGHAM CANDY ATTENDANT Ot R10.31 RIGHT LOWER QUADRANT PAIN 05/24/2017 GILLIAN CUNNINGHAM CANDY ATTENDANT Ot R10.84 GENERALIZED ABDOMINAL PAIN 05/24/2017 MELISSA ROCK, IVETTE Martinez Ot Z12.31 ENCNTR SCREEN MAMMOGRAM FOR MALIGNANT NE 05/24/2017 EMILY CAPELLAN CANDY ATTENDANT Ot Z12.31 ENCNTR SCREEN MAMMOGRAM FOR MALIGNANT NE 05/24/2017 EMILY CAPELLAN CANDY ATTENDANT Ot Z12.31 ENCNTR SCREEN MAMMOGRAM FOR MALIGNANT NE 05/25/2017 GUILLE ALVARADO DO Ot I10 ESSENTIAL (PRIMARY) HYPERTENSION 05/25/2017 GUILLE ALVARADO DO Ot I25.2 OLD MYOCARDIAL INFARCTION 05/25/2017 GUILLE ALVARADO DO Ot K92.2 GASTROINTESTINAL HEMORRHAGE, UNSPECIFIED 05/25/2017 GUILLE ALVARADO DO Ot Z79.02 UTILITIES ESTIMATOR AND DRAFTER (CURRENT) USE OF ANTITHROMBOTI 05/25/2017 GUILLE ALVARADO DO Ot Z79.82 UTILITIES ESTIMATOR AND DRAFTER (CURRENT) USE OF ASPIRIN 05/25/2017 CARRILLO ALVARADO DOI Ot Z79.89 9 OTHER UTILITIES ESTIMATOR AND DRAFTER (CURRENT) DRUG THERAPY 05/25/2017 GUILLE ALVARADO DO Ot Z86.73 PRSNL HX OF TIA (TIA), AND CEREB INFRC W 05/25/2017 CHRISTIANO VIZCARRA GUILLE Ot I10 ESSENTIAL (PRIMARY) HYPERTENSION 05/25/2017 CARRILLO ALVARADO DOI Ot I25.2 OLD MYOCARDIAL INFARCTION 05/25/2017 GUILLE ALVARADO DO Ot K92.2 GASTROINTESTINAL HEMORRHAGE, UNSPECIFIED 05/25/2017 GUILLE ALVARADO DO Ot Z79.02 HALFWAY (CURRENT) USE OF ANTITHROMBOTI 05/25/2017 GUILLE ALVARADO DO Ot Z79.82 UTILITIES ESTIMATOR AND DRAFTER (CURRENT) USE OF ASPIRIN 05/25/2017 CARRILLO ALVARADO [...] MAMMO-MALIGN NEOPLASM OF [place] 05/29/2017 GILLIAN CUNNINGHAM CANDY ATTENDANT Ot R10.31 RIGHT LOWER QUADRANT PAIN 05/29/2017 GILLIAN CUNNINGHAM CANDY ATTENDANT Ot R10.84 GENERALIZED ABDOMINAL PAIN 05/29/2017 MELISSA [...] SCREEN MAMMO-MALIGN NEOPLASM OF [place] 07/22/2018 IOANADARRIUS NAIL GALVANIZER Ot V76.12 OTH SCREEN MAMMO-MALIGN NEOPLASM OF [place] 07/22/2018 GILLIAN CUNNINGHAM CANDY ATTENDANT Ot R10.31 RIGHT LOWER QUADRANT PAIN 07/22/2018 YOVANI CUNNINGHAMJANIE Mcgrath CANDY ATTENDANT Ot R10.84 GENERALIZED ABDOMINAL PAIN 07/22/2018 MELISSA [...] Ot I25. 10 ATHSCL HEART DISEASE OF [place] CORONARY 05/10/2019 FRAN PINEDA MD Ot I25. [...] Ot I25. 10 ATHSCL HEART DISEASE OF [place] CORONARY 05/10/2019 FRAN PINEDA MD, Ot I25. [...] PINEDA MD, Ot R53. 1 WEAKNESS 05/10/2019 FARN PINEDA MD, Ot R59. 0 LOCALIZED ENLARGED [...] Ot I25. 10 ATHSCL HEART DISEASE OF [place] CORONARY 05/16/2019 VERONICA MANE MD, Ot I25. [...] APRN Ot I25.10 ATHSCL HEART DISEASE OF [place] CORONARY 05/17/2019 ERASMO BURRELL APRN Ot K59.00 CONSTIPATION, UNSPECIFIED 05/17/2019 ERASMO BURRELL APRN Ot N39 .0 URINARY TRACT INFECTION, SITE NOT SPECIF 05/17/2019 ERASMO BURRELL APRN Ot R10.31 RIGHT LOWER QUADRANT PAIN 05/17/2019 ERASMO BURRELL APRN Ot Z79.51 UTILITIES ESTIMATOR AND DRAFTER (CURRENT) USE OF INHALED STERO 05/17/2019 ERASMO BURRELL APRN Ot Z79.82 UTILITIES ESTIMATOR AND DRAFTER (CURRENT) USE OF ASPIRIN 05/17/2019 ERASMO BURRELL [...] Ot I25. 10 ATHSCL HEART DISEASE OF [place] CORONARY 06/22/2019 FRAN PINEDA MD Ot I25. 2 OLD MYOCARDIAL INFARCTION 06/22/2019 FRAN PINEDA MD Ot J32. 9 CHRONIC SINUSITIS, UNSPECIFIED 06/22/2019 FRAN PINEDA MD Ot J44. 1 CHRONIC OBSTRUCTIVE PULMONARY DISEASE W 06/22/2019 FRAN PINEDA MD Ot R09. 02 HYPOXEMIA 06/22/2019 FRAN PINEDA MD Ot Z86. 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 MYOCARDIAL INFARCTION 08/13/2019 ALVARADO DO, GUILLE Ot J10.1 FLU DUE TO OTH IDENT INFLUENZA VIRUS W O 08/13/2019 ALVARADO DO, GUILLE Ot J44.1 CHRONIC OBSTRUCTIVE PULMONARY DISEASE W 08/13/2019 ALVARADO DO, GUILLE Ot J96.01 ACUTE RESPIRATORY FAILURE WITH HYPOXIA 08/13/2019 ALVARADO DO, GUILLE Ot R53.1 WEAKNESS 08/13/2019 ALVARADO DO, GUILLE Ot Z86.73 PRSNL HX OF TIA (TIA), AND CEREB INFRC W 08/22/2019 GREY MORAN MD Ot E78.00 PURE HYPERCHOLESTEROLEMIA, UNSPECIFIED 08/22/2019 GREY MORAN MD Ot I10 ESSENTIAL (PRIMARY) HYPERTENSION 08/22/2019 GREY MORAN MD Ot I25.10 ATHSCL HEART DISEASE OF [place] CORONARY 08/22/2019 GREY MORAN MD Ot I25.2 OLD MYOCARDIAL INFARCTION 08/22/2019 GREY MORAN MD Ot R07.89 OTHER CHEST PAIN 08/22/2019 GREY MORAN MD Ot R07.9 CHEST PAIN, UNSPECIFIED 08/22/2019 GREY MORAN MD Ot Z79.51 UTILITIES ESTIMATOR AND DRAFTER (CURRENT) USE OF INHALED STERO 08/22/2019 GREY MORAN MD Ot Z79.82 UTILITIES ESTIMATOR AND DRAFTER (CURRENT) USE OF ASPIRIN 08/22/2019 GREY MORAN MD Ot Z80.3 FAMILY HISTORY OF MALIGNANT NEOPLASM OF 08/22/2019 GREY MORAN MD Ot Z86.73 PRSNL HX OF TIA (TIA), AND CEREB INFRC W 08/30/2019 GREY MORAN MD Ot E78.00 PURE HYPERCHOLESTEROLEMIA, UNSPECIFIED 08/30/2019 GREY MORAN MD Ot I10 ESSENTIAL (PRIMARY) HYPERTENSION 08/30/2019 GREY MORAN MD Ot I25.10 ATHSCL HEART DISEASE OF [place] CORONARY 08/30/2019 GREY MORAN MD Ot I25.2 OLD MYOCARDIAL INFARCTION 08/30/2019 GREY MORAN MD Ot R07.89 OTHER CHEST PAIN 08/30/2019 GREY MORAN MD Ot R07.9 CHEST PAIN, UNSPECIFIED 08/30/2019 GREY MORAN MD Ot Z79.51 UTILITIES ESTIMATOR AND DRAFTER (CURRENT) USE OF INHALED STERO 08/30/2019 GREY MORAN MD Ot Z79.82 UTILITIES ESTIMATOR AND DRAFTER (CURRENT) USE OF ASPIRIN 08/30/2019 GREY MORAN MD Ot Z80.3 FAMILY HISTORY OF MALIGNANT NEOPLASM OF 08/30/2019 GREY MORAN MD Ot Z86.73 PRSNL HX OF TIA (TIA), AND CEREB INFRC W 09/01/2019 GREY MORAN MD Ot E78.00 PURE HYPERCHOLESTEROLEMIA, UNSPECIFIED 09/01/2019 GREY MORAN MD Ot I10 ESSENTIAL (PRIMARY) HYPERTENSION 09/01/2019 GREY MORAN MD Ot I25.10 ATHSCL HEART DISEASE OF [place] CORONARY 09/01/2019 GREY MORAN MD Ot I25.2 OLD MYOCARDIAL INFARCTION 09/01/2019 GREY MORAN MD Ot J44.1 CHRONIC OBSTRUCTIVE PULMONARY DISEASE W 09/01/2019 GREY MORAN MD Ot R06.02 SHORTNESS OF BREATH 09/01/2019 GREY MORAN MD Ot Z79.02 UTILITIES ESTIMATOR AND DRAFTER (CURRENT) USE OF ANTITHROMBOTI 09/01/2019 GREY MORAN MD Ot Z79.51 HALFWAY (CURRENT) USE OF INHALED STERO 09/01/2019 GREY MORAN MD Ot Z79.82 UTILITIES ESTIMATOR AND DRAFTER (CURRENT) USE OF ASPIRIN 09/01/2019 GREY MORAN MD Ot Z80.3 FAMILY HISTORY OF MALIGNANT NEOPLASM OF 09/01/2019 GREY MORAN MD Ot Z82.49 FAMILY HX OF ISCHEM HEART DIS AND OTH DI 09/01/2019 GREY MORAN MD, Ot Z86.73 PRSNL HX OF TIA (TIA), AND CEREB INFRC W 09/01/2019 GREY MORAN MD, Ot Z90.710 ACQUIRED ABSENCE OF BOTH CERVIX AND UTER 09/05/2019 GREY MORAN MD, Ot E78.00 PURE HYPERCHOLESTEROLEMIA, UNSPECIFIED 09/05/2019 GREY MORAN MD Ot I10 ESSENTIAL (PRIMARY) HYPERTENSION 09/05/2019 GREY MORAN MD, Ot I25.10 ATHSCL HEART DISEASE OF [place] CORONARY 09/05/2019 GREY MORAN MD, Ot I25.2 OLD MYOCARDIAL INFARCTION 09/05/2019 GREY MORAN MD, Ot J44.1 CHRONIC OBSTRUCTIVE PULMONARY DISEASE W 09/05/2019 GREY MORAN MD, Ot R06.02 SHORTNESS OF BREATH 09/05/2019 GREY MORAN MD, Ot Z79.02 HALFWAY (CURRENT) USE OF ANTITHROMBOTI 09/05/2019 GREY MORAN MD, Ot Z79.51 UTILITIES ESTIMATOR AND DRAFTER (CURRENT) USE OF INHALED STERO 09/05/2019 GREY MORAN MD, Ot Z79.82 HALFWAY (CURRENT) USE OF ASPIRIN 09/05/2019 GREY MORAN MD, Ot Z80.3 FAMILY HISTORY OF MALIGNANT NEOPLASM OF 09/05/2019 GREY MORAN MD, Ot Z82.49 FAMILY HX OF ISCHEM HEART DIS AND OTH DI 09/05/2019 GREY MORAN MD, Ot Z86.73 PRSNL HX OF TIA (TIA), AND CEREB INFRC W 09/05/2019 GREY MORAN MD, Ot Z90.710 ACQUIRED ABSENCE OF BOTH CERVIX AND UTER Procedures There is no data. Results Test [...] ABO+Rh group AN NRG Transfusion band number [id number] NRG Blood group antibody screen NEGATIVE NR G Methicillin resistant Staphylococcus aur eus (MRSA) screening culture - 05/24/17 19:00 Methicillin resistant Staphylococcus aureus (MRSA) scr eening culture NEG NR Complete blood count (CBC) with automate d [...] 0.0-0.1 Whole blood basic metabolic panel - 11/0 01/03 04:45 Serum or plasma sodium measurement [...] LEUKO REDUCED AS1 T RANSFUSED 05/29/17 1244 [facility] Blood type T Indirect antibody screen pa ruben - 05/29/17 08:24 ABO+Rh group AN NR Transfusion band number [id number] NR Blood group antibody screen NEGATIVE NR G [...] platelet poor plasma bycoagulation assay - 05/06/19 18: Activated partial thromboplastin time (a PTT) in platelet poor plasma bycoagulation assay 31 s 24-35 Serum or plasma troponin i.cardiac measu rement (mass/volume) - 05/06/19 18: Serum or plasma troponin i.cardiac measurement (mass/v olume) < ng/mL <0.028 Influenza virus A and B antigen detectio n - 05/06/19 18: FLU RESULT NEGATIVE FOR INFLUENZA A AND B ANTIGENS BY IA NRG Manual absolute plasma cell count - 04/19 03/07 18:23 Blood monocytes/100 leukocytes 11 % NRG Manual blood segmented neutrophils/100 leukocytes 58 % NRG Blood band neutrophils/100 leukocytes 1 % NRG Manual blood lymphocytes/100 leukocytes 18 % NRG Manual eosinophils/100 leukocytes in nose 11 % NRG Manual blood lymphocytes variant/100 leukocytes 1 % NRG Blood erythrocyte morphology finding identification NORMAL NRG Serum or plasma lithium measurement (mol es/volume) - 05/06/19 18: BNP PT 247.0 pg/mL <100.0 Bacterial blood [...] culture - 05/12/19 11:30 Bacterial urine culture [id number] NRG COLONY COUNT 40,000 CFU/ML NRG FTX;REPORTABLE [...] in u rine sediment by light microscopy 05-13 NRG Crystals detection in urine sediment by [...] INFLUENZA A AND B ANTIGENS BY IA [facility] Bordetella pertussis and parapertussis D NA detection - 06/20/19 12:00 Bordetella parapertussis DNA detection b y probe and target amplification method Not Detected Not Detected Bordetella pertussis and parapertussis DNA detection Not Detected Not Detected Sputum Gram stain - 06/21/19 08:50 Sputum Gram stain Mixed bacterial helena [facility] Bacterial sputum culture - 06/21/19 08:5 0 QUANTITY OF GROWTH . [facility] Bacterial sputum culture USUAL RESP [facility] Automated blood complete blood count (he mogram) [...] plasma calcium measurement (mass/volume) 9.4 mg/dL 8.5-10.1 Influenza virus A and B antigen detectio n - 08/11/19 19:33 CALL POSITIVES (F1 HELP) WALTER @ 2009 NRG FLU RESULT POSITIVE FOR INFLUENZA B ANT IGEN, NEG FOR A ANTIGEN, BY IA NRG Complete blood count (CBC) with automate d white blood cell (WBC) differential - 08/11/19 19:39 Blood leukocytes automated count (number/volume) 11.9 10*3/uL 4.3-11.0 Blood erythrocytes automated count (number/volume) 4.95 10*6/uL 4.35-5.85 Venous blood hemoglobin measurement (mass/volume) 14.6 g/dL 11.5-16.0 Blood hematocrit (volume fraction) 44 % 35-52 Automated erythrocyte mean corpuscular volume 88 [ foz_us] 80-99 Automated erythrocyte mean corpuscular h emoglobin (mass per erythrocyte) 30 pg 25-34 Automated erythrocyte mean corpuscular h emoglobin concentration measurement (mass/volume) 34 g/dL 32-36 Automated erythrocyte distribution width ratio 14. 1 % 10.0- 14.5 Automated blood platelet count (count/volume) 262 10*3/uL 130-400 Automated blood platelet mean volume measurement 11.0 [foz_us] 7.4-10.4 Automated blood neutrophils/100 leukocytes 77 % 42-75 Automated blood lymphocytes/100 leukocytes 16 % 12-44 Blood monocytes/100 leukocytes 4 % 0-12 Automated blood eosinophils/100 leukocytes 3 % 0-10 Automated blood basophils/100 leukocytes 0 % 0-10 Blood neutrophils automated count (number/volume) 9.1 10*3 1.8-7.8 Blood lymphocytes automated count (number/volume) 1.9 10*3 1.0-4.0 Blood monocytes automated count (number/volume) 0. 5 10*3 0.0-1.0 Automated eosinophil count 0.4 10*3/uL 0 .0-0.3 Automated blood basophil count (count/volume) 0.0 10*3/uL 0.0-0.1 PT panel in platelet poor plasma by coag ulation assay - 08/11/19 19:39 Prothrombin time (PT) in platelet poor plasma by coagu lation assay 12.7 s 12.2-14.7 INR in platelet poor plasma or blood by coagulation as say 0.9 0.8-1.4 Activated partial thromboplastin time (a PTT) in platelet poor plasma bycoagulation assay - 08/11/19 19:39 Activated partial thromboplastin time (a PTT) in platelet poor plasma bycoagulation assay 32 s 24-35 Comprehensive metabolic panel - 08/11/19 19:39 Serum or plasma sodium measurement (moles/volume) 141 mmol/L 135-145 Serum or plasma potassium measurement (moles/volume) 3.6 mmol/L 3.6-5.0 Serum or plasma chloride measurement (moles/volume) 104 mmol/L 98-107 Carbon dioxide 18 mmol/L 21-32 Serum or plasma anion gap determination (moles/volume) 19 mmol/L 5-14 Serum or plasma urea nitrogen measurement (mass/volume ) 21 mg/dL 7-18 Serum or plasma creatinine measurement (mass/volume) 1.16 mg/dL 0.60-1.30 Serum or plasma urea nitrogen/creatinine mass ratio 18 NRG Serum or plasma creatinine measurement w ith calculation of estimated glomerular filtration rate 44 NRG Serum or plasma glucose measurement (mass/volume) 111 mg/dL 70-105 Serum or plasma calcium measurement (mass/volume) 9.9 mg/dL 8.5-10.1 Serum or plasma total bilirubin measurement (mass/volu me) 0.3 mg/dL 0.1-1.0 Serum or plasma alkaline phosphatase shani surement (enzymatic activity/volume) 143 U/L 40-136 Serum or plasma aspartate aminotransfera se measurement (enzymatic activity/volume) 23 U/L 5-34 Serum or plasma alanine aminotransferase measurement (enzymatic activity/volume) 14 U/L 0-55 Serum or plasma protein measurement (mass/volume) 7.6 g/dL 6.4-8.2 Serum or plasma albumin measurement (mass/volume) 4.2 g/dL 3.2-4.5 CALCIUM CORRECTED 9.7 mg/dL 8.5-10.1 Magnesium - 08/11/19 19:39 Magnesium 1.3 mg/dL 1.6-2.4 Serum or plasma troponin i.cardiac measu rement (mass/volume) - 08/11/19 19:39 Serum or plasma troponin i.cardiac measurement (mass/v olume) < ng/mL <0.028 Blood lactic acid measurement (moles/vol ume) - 08/11/19 19:39 Blood lactic acid measurement (moles/volume) 2.00 mmol/L 0.50-2.00 Serum or plasma lithium measurement (mol es/volume) - 08/11/19 19:39 BNP PT 63.5 pg/mL <100.0 Bacterial blood culture - 08/11/19 19:39 Bacterial blood culture NG NRG Sputum Gram stain - 08/11/19 19:40 Sputum Gram stain RELEVANT, INTERPRET WITH CAUTION . NRG Bacterial sputum culture - 08/11/19 19:4 0 QUANTITY OF GROWTH . NRG Bacterial sputum culture USUAL RESP NRG Bacterial blood culture - 08/11/19 19:57 Bacterial blood culture NG NRG Complete urinalysis with reflex to cultu re - 08/11/19 20:51 Urine color determination YELLOW NRG Urine clarity determination CLEAR NR G Urine pH measurement by test strip 5.0 5-9 Specific gravity of urine by test strip >= 1.016-1.022 Urine protein assay by test strip, semi-quantitative 2+ NEGATIVE Urine glucose detection by automated test strip NE GATIVE NEGATIVE Erythrocytes detection in urine sediment by light micr oscopy NEGATIVE NEGATIVE Urine ketones detection by automated test strip 1+ NEGATIVE Urine nitrite detection by test strip NEGATIVE NEGATIVE Urine total bilirubin detection by test strip 1+ NEGATIVE Urine urobilinogen measurement by automated test strip (mass/volume) 0.2 mg/dL < = 1.0 Urine leukocyte esterase detection by dipstick NEG ATIVE NEGATIVE Automated urine sediment erythrocyte cou nt by microscopy (number/high power field) [HPF] NRG Automated urine sediment leukocyte count by microscopy (number/high power field) [HPF] NRG Bacteria detection in urine sediment by light microsco py TRACE NRG Crystals detection in urine sediment by light microsco py NONE NRG Casts detection in urine sediment by light microscopy PRESENT NRG Mucus detection in urine sediment by light microscopy NEGATIVE NRG Complete urinalysis with reflex to culture NO NRG Hyaline casts detection in urine sediment by light rhonda roscopy 2-5 NRG Bacterial urine culture - 08/11/19 20:51 Bacterial urine culture NG NRG Complete blood count (CBC) with automate d white blood cell (WBC) differential - 08/12/19 05:53 Blood leukocytes automated count (number/volume) 12.7 10*3/uL 4.3-11.0 Blood erythrocytes automated count (number/volume) 4.00 10*6/uL 4.35-5.85 Venous blood hemoglobin measurement (mass/volume) 11.8 g/dL 11.5-16.0 Blood hematocrit (volume fraction) 35 % 35-52 Automated erythrocyte mean corpuscular volume 88 [ foz_us] 80-99 Automated erythrocyte mean corpuscular h emoglobin (mass per erythrocyte) 30 pg 25-34 Automated erythrocyte mean corpuscular h emoglobin concentration measurement (mass/volume) 34 g/dL 32-36 Automated erythrocyte distribution width ratio 13. 6 % 10.0- 14.5 Automated blood platelet count (count/volume) 220 10*3/uL 130-400 Automated blood platelet mean volume measurement 10.9 [foz_us] 7.4-10.4 Automated blood neutrophils/100 leukocytes 93 % 42-75 Automated blood lymphocytes/100 leukocytes 6 % 12-44 Blood monocytes/100 leukocytes 1 % 0-12 Automated blood eosinophils/100 leukocytes 0 % 0-10 Automated blood basophils/100 leukocytes 0 % 0-10 Blood neutrophils automated count (number/volume) 11.8 10*3 1.8-7.8 Blood lymphocytes automated count (number/volume) 0.8 10*3 1.0-4.0 Blood monocytes automated count (number/volume) 0. 1 10*3 0.0-1.0 Automated eosinophil count 0.1 10*3/uL 0 .0-0.3 Automated blood basophil count (count/volume) 0.0 10*3/uL 0.0-0.1 Manual absolute plasma cell count - 07/21 11/06 05:53 Blood monocytes/100 leukocytes 0 % NRG Manual blood segmented neutrophils/100 leukocytes 96 % NRG Blood band neutrophils/100 leukocytes 0 % NRG Manual blood lymphocytes/100 leukocytes 4 % NRG Manual eosinophils/100 leukocytes in nose 0 % NRG Manual blood basophils/100 leukocytes 0 % NRG Blood erythrocyte morphology finding identification NORMAL NRG Comprehensive metabolic panel - 08/12/19 05:53 Serum or plasma sodium measurement (moles/volume) 136 mmol/L 135-145 Serum or plasma potassium measurement (moles/volume) 3.7 mmol/L 3.6-5.0 Serum or plasma chloride measurement (moles/volume) 107 mmol/L 98-107 Carbon dioxide 18 mmol/L 21-32 Serum or plasma anion gap determination (moles/volume) 11 mmol/L 5-14 Serum or plasma urea nitrogen measurement (mass/volume ) 13 mg/dL 7-18 Serum or plasma creatinine measurement (mass/volume) 0.83 mg/dL 0.60-1.30 Serum or plasma urea nitrogen/creatinine mass ratio 16 NRG Serum or plasma creatinine measurement w ith calculation of estimated glomerular filtration rate > NRG Serum or plasma glucose measurement (mass/volume) 266 mg/dL 70-105 Serum or plasma calcium measurement (mass/volume) 8.1 mg/dL 8.5-10.1 Serum or plasma total bilirubin measurement (mass/volu me) 0.1 mg/dL 0.1-1.0 Serum or plasma alkaline phosphatase shani surement (enzymatic activity/volume) 112 U/L 40-136 Serum or plasma aspartate aminotransfera se measurement (enzymatic activity/volume) 17 U/L 5-34 Serum or plasma alanine aminotransferase measurement (enzymatic activity/volume) 12 U/L 0-55 Serum or plasma protein measurement (mass/volume) 5.9 g/dL 6.4-8.2 Serum or plasma albumin measurement (mass/volume) 3.3 g/dL 3.2-4.5 CALCIUM CORRECTED 8.7 mg/dL 8.5-10.1 Magnesium - 08/12/19 05:53 Magnesium 1.7 mg/dL 1.6-2.4 PROCALCITONIN (PCT) - 08/12/19 05:53 PROCALCITONIN (PCT) 0.20 ng/mL <0.10 Capillary blood glucose measurement by g lucometer (mass/volume) - 08/12/19 16:31 Capillary blood glucose measurement by glucometer (mas s/volume) 263 mg/dL 70-110 Capillary blood glucose measurement by g lucometer (mass/volume) - 08/12/19 20:35 Capillary blood glucose measurement by glucometer (mas s/volume) 222 mg/dL 70-110 Capillary blood glucose measurement by g lucometer (mass/volume) - 08/13/19 06:21 Capillary blood glucose measurement by glucometer (mas s/volume) 171 mg/dL 70-110 Capillary blood glucose measurement by g lucometer (mass/volume) - 08/13/19 11:22 Capillary blood glucose measurement by glucometer (mas s/volume) 163 mg/dL 70-110 Complete blood count (CBC) with automate d white blood cell (WBC) differential - 08/22/19 12:32 Blood leukocytes automated count (number/volume) 14.9 10*3/uL 4.3-11.0 Blood erythrocytes automated count (number/volume) 3.51 10*6/uL 4.35-5.85 Venous blood hemoglobin measurement (mass/volume) 10.5 g/dL 11.5-16.0 Blood hematocrit (volume fraction) 32 % 35-52 Automated erythrocyte mean corpuscular volume 92 [ foz_us] 80-99 Automated erythrocyte mean corpuscular h emoglobin (mass per erythrocyte) 30 pg 25-34 Automated erythrocyte mean corpuscular h emoglobin concentration measurement (mass/volume) 33 g/dL 32-36 Automated erythrocyte distribution width ratio 14. 7 % 10.0- 14.5 Automated blood platelet count (count/volume) 256 10*3/uL 130-400 Automated blood platelet mean volume measurement 10.2 [foz_us] 7.4-10.4 Automated blood neutrophils/100 leukocytes 49 % 42-75 Automated blood lymphocytes/100 leukocytes 19 % 12-44 Blood monocytes/100 leukocytes 7 % 0-12 Automated blood eosinophils/100 leukocytes 26 % 0-10 Automated blood basophils/100 leukocytes 0 % 0-10 Blood neutrophils automated count (number/volume) 7.3 10*3 1.8-7.8 Blood lymphocytes automated count (number/volume) 2.8 10*3 1.0-4.0 Blood monocytes automated count (number/volume) 1. 0 10*3 0.0-1.0 Automated eosinophil count 3.9 10*3/uL 0 .0-0.3 Automated blood basophil count (count/volume) 0.0 10*3/uL 0.0-0.1 Comprehensive metabolic panel - 08/22/19 12:32 Serum or plasma sodium measurement (moles/volume) 137 mmol/L 135-145 Serum or plasma potassium measurement (moles/volume) 4.3 mmol/L 3.6-5.0 Serum or plasma chloride measurement (moles/volume) 103 mmol/L 98-107 Carbon dioxide 26 mmol/L 21-32 Serum or plasma anion gap determination (moles/volume) 8 mmol/L 5-14 Serum or plasma urea nitrogen measurement (mass/volume ) 15 mg/dL 7-18 Serum or plasma creatinine measurement (mass/volume) 0.79 mg/dL 0.60-1.30 Serum or plasma urea nitrogen/creatinine mass ratio 19 NRG Serum or plasma creatinine measurement w ith calculation of estimated glomerular filtration rate > NRG Serum or plasma glucose measurement (mass/volume) 87 mg/dL 70-105 Serum or plasma calcium measurement (mass/volume) 8.8 mg/dL 8.5-10.1 Serum or plasma total bilirubin measurement (mass/volu me) 0.4 mg/dL 0.1-1.0 Serum or plasma alkaline phosphatase shani surement (enzymatic activity/volume) 83 U/L 40-136 Serum or plasma aspartate aminotransfera se measurement (enzymatic activity/volume) 17 U/L 5-34 Serum or plasma alanine aminotransferase measurement (enzymatic activity/volume) 22 U/L 0-55 Serum or plasma protein measurement (mass/volume) 5.3 g/dL 6.4-8.2 Serum or plasma albumin measurement (mass/volume) 3.2 g/dL 3.2-4.5 CALCIUM CORRECTED 9.4 mg/dL 8.5-10.1 Serum or plasma troponin i.cardiac measu rement (mass/volume) - 08/22/19 12:32 Serum or plasma troponin i.cardiac measurement (mass/v olume) < ng/mL <0.028 Serum or plasma C reactive protein measu rement (mass/volume) - 08/22/19 12:32 Serum or plasma C reactive protein measurement (mass/v olume) 0.10 mg/dL 0.00-0.50 Manual absolute plasma cell count - 10/06 12:32 Blood monocytes/100 leukocytes 5 % NRG Manual blood segmented neutrophils/100 leukocytes 55 % NRG Blood band neutrophils/100 leukocytes 0 % NRG Manual blood lymphocytes/100 leukocytes 15 % NRG Manual eosinophils/100 leukocytes in nose 18 % NRG Manual blood basophils/100 leukocytes 0 % NRG Blood lymphocytes variant/100 leukocytes 7 % NRG Blood erythrocyte morphology finding identification NORMAL NR Serum or plasma troponin i.cardiac measu rement (mass/volume) - 08/22/19 16:07 Serum or plasma troponin i.cardiac measurement (mass/v olume) < ng/mL <0.028 Complete blood count (CBC) with automate d white blood cell (WBC) differential - 09/01/19 02:56 Blood leukocytes automated count (number/volume) 9.3 10*3/uL 4.3-11.0 Blood erythrocytes automated count (number/volume) 3.83 10*6/uL 4.35-5.85 Venous blood hemoglobin measurement (mass/volume) 11.5 g/dL 11.5-16.0 Blood hematocrit (volume fraction) 35 % 35-52 Automated erythrocyte mean corpuscular volume 92 [ foz_us] 80-99 Automated erythrocyte mean corpuscular h emoglobin (mass per erythrocyte) 30 pg 25-34 Automated erythrocyte mean corpuscular h emoglobin concentration measurement (mass/volume) 33 g/dL 32-36 Automated erythrocyte distribution width ratio 14. 8 % 10.0- 14.5 Automated blood platelet count (count/volume) 213 10*3/uL 130-400 Automated blood platelet mean volume measurement 10.8 [foz_us] 7.4-10.4 Automated blood neutrophils/100 leukocytes 60 % 42-75 Automated blood lymphocytes/100 leukocytes 13 % 12-44 Blood monocytes/100 leukocytes 6 % 0-12 Automated blood eosinophils/100 leukocytes 20 % 0-10 Automated blood basophils/100 leukocytes 1 % 0-10 Blood neutrophils automated count (number/volume) 5.6 10*3 1.8-7.8 Blood lymphocytes automated count (number/volume) 1.2 10*3 1.0-4.0 Blood monocytes automated count (number/volume) 0. 6 10*3 0.0-1.0 Automated eosinophil count 1.8 10*3/uL 0 .0-0.3 Automated blood basophil count (count/volume) 0.1 10*3/uL 0.0-0.1 Comprehensive metabolic panel - 09/01/19 02:56 Serum or plasma sodium measurement (moles/volume) 136 mmol/L 135-145 Serum or plasma potassium measurement (moles/volume) 4.4 mmol/L 3.6-5.0 Serum or plasma chloride measurement (moles/volume) 104 mmol/L 98-107 Carbon dioxide 21 mmol/L 21-32 Serum or plasma anion gap determination (moles/volume) 11 mmol/L 5-14 Serum or plasma urea nitrogen measurement (mass/volume ) 17 mg/dL 7-18 Serum or plasma creatinine measurement (mass/volume) 0.90 mg/dL 0.60-1.30 Serum or plasma urea nitrogen/creatinine mass ratio 19 NRG Serum or plasma creatinine measurement w ith calculation of estimated glomerular filtration rate 59 NRG Serum or plasma glucose measurement (mass/volume) 159 mg/dL 70-105 Serum or plasma calcium measurement (mass/volume) 9.3 mg/dL 8.5-10.1 Serum or plasma total bilirubin measurement (mass/volu me) 0.4 mg/dL 0.1-1.0 Serum or plasma alkaline phosphatase shani surement (enzymatic activity/volume) 113 U/L 40-136 Serum or plasma aspartate aminotransfera se measurement (enzymatic activity/volume) 18 U/L 5-34 Serum or plasma alanine aminotransferase measurement (enzymatic activity/volume) 15 U/L 0-55 Serum or plasma protein measurement (mass/volume) 6.8 g/dL 6.4-8.2 Serum or plasma albumin measurement (mass/volume) 4.1 g/dL 3.2-4.5 CALCIUM CORRECTED 9.2 mg/dL 8.5-10.1 Manual absolute plasma cell count - 08/20 10/06 02:56 Blood monocytes/100 leukocytes 2 % NRG Manual blood segmented neutrophils/100 leukocytes 63 % NRG Blood band neutrophils/100 leukocytes 1 % NRG Manual blood lymphocytes/100 leukocytes 16 % NRG Manual eosinophils/100 leukocytes in nose 14 % NRG Manual blood basophils/100 leukocytes 0 % NRG Blood lymphocytes variant/100 leukocytes 4 % NRG Blood anisocytosis detection by light microscopy S LIGHT NRG Blood ovalocytes detection by light microscopy SLI GHT NRG Blood toxic granules detection by light microscopy 1+ NRG Blood poikilocytosis detection by light microscopy SLIGHT NRG Serum or plasma C reactive protein measu rement (mass/volume) - 09/01/19 02:56 Serum or plasma C reactive protein measurement (mass/v olume) 0.14 mg/dL 0.00-0.50 Complete blood count (CBC) with automate d white blood cell (WBC) differential - 12/27/19 14:20 Blood leukocytes automated count (number/volume) 13.4 10*3/uL 4.3-11.0 Blood erythrocytes automated count (number/volume) 4.89 10*6/uL 4.35-5.85 Venous blood hemoglobin measurement (mass/volume) 13.9 g/dL 11.5-16.0 Blood hematocrit (volume fraction) 42 % 35-52 Automated erythrocyte mean corpuscular volume 86 [ foz_us] 80-99 Automated erythrocyte mean corpuscular h emoglobin (mass per erythrocyte) 28 pg 25-34 Automated erythrocyte mean corpuscular h emoglobin concentration measurement (mass/volume) 33 g/dL 32-36 Automated erythrocyte distribution width ratio 13. 7 % 10.0- 14.5 Automated blood platelet count (count/volume) 194 10*3/uL 130-400 Automated blood platelet mean volume measurement 12.4 [foz_us] 7.4-10.4 Automated blood neutrophils/100 leukocytes 81 % 42-75 Automated blood lymphocytes/100 leukocytes 11 % 12-44 Blood monocytes/100 leukocytes 8 % 0-12 Automated blood eosinophils/100 leukocytes 0 % 0-10 Automated blood basophils/100 leukocytes 0 % 0-10 Blood neutrophils automated count (number/volume) 10.9 10*3 1.8-7.8 Blood lymphocytes automated count (number/volume) 1.5 10*3 1.0-4.0 Blood monocytes automated count (number/volume) 1. 1 10*3 0.0-1.0 Automated eosinophil count 0.0 10*3/uL 0 .0-0.3 Automated blood basophil count (count/volume) 0.0 10*3/uL 0.0-0.1 Comprehensive metabolic panel - 12/27/19 14:20 Serum or plasma sodium measurement (moles/volume) 138 mmol/L 135-145 Serum or plasma potassium measurement (moles/volume) 4.2 mmol/L 3.6-5.0 Serum or plasma chloride measurement (moles/volume) 103 mmol/L 98-107 Carbon dioxide 21 mmol/L 21-32 Serum or plasma anion gap determination (moles/volume) 14 mmol/L 5-14 Serum or plasma urea nitrogen measurement (mass/volume ) 16 mg/dL 7-18 Serum or plasma creatinine measurement (mass/volume) 1.06 mg/dL 0.60-1.30 Serum or plasma urea nitrogen/creatinine mass ratio 15 NRG Serum or plasma creatinine measurement w ith calculation of estimated glomerular filtration rate 49 NRG Serum or plasma glucose measurement (mass/volume) 116 mg/dL 70-105 Serum or plasma calcium measurement (mass/volume) 10.0 mg/dL 8.5-10.1 Serum or plasma total bilirubin measurement (mass/volu me) 0.7 mg/dL 0.1-1.0 Serum or plasma alkaline phosphatase shani surement (enzymatic activity/volume) 104 U/L 40-136 Serum or plasma aspartate aminotransfera se measurement (enzymatic activity/volume) 37 U/L 5-34 Serum or plasma alanine aminotransferase measurement (enzymatic activity/volume) 19 U/L 0-55 Serum or plasma protein measurement (mass/volume) 7.5 g/dL 6.4-8.2 Serum or plasma albumin measurement (mass/volume) 4.4 g/dL 3.2-4.5 CALCIUM CORRECTED 9.7 mg/dL 8.5-10.1 Serum or plasma troponin i.cardiac measu rement (mass/volume) - 12/27/19 14:20 Serum or plasma troponin i.cardiac measurement (mass/v olume) 0.060 ng/mL <0.028 Capillary blood glucose measurement by g lucometer (mass/volume) - 12/27/19 14:43 Capillary blood glucose measurement by glucometer (mas s/volume) 114 mg/dL 70-110 Complete urinalysis with reflex to cultu re - 12/27/19 15:05 Urine color determination YELLOW NRG Urine clarity determination CLEAR NR G Urine pH measurement by test strip 6.5 5-9 Specific gravity of urine by test strip 1.015 1.016-1.022 Urine protein assay by test strip, semi-quantitative TRACE NEGATIVE Urine glucose detection by automated test strip NE GATIVE NEGATIVE Erythrocytes detection in urine sediment by light micr oscopy NEGATIVE NEGATIVE Urine ketones detection by automated test strip 1+ NEGATIVE Urine nitrite detection by test strip NEGATIVE NEGATIVE Urine total bilirubin detection by test strip NEGA TIVE NEGATIVE Urine urobilinogen measurement by automated test strip (mass/volume) 0.2 mg/dL < = 1.0 Urine leukocyte esterase detection by dipstick NEG ATIVE NEGATIVE Automated urine sediment erythrocyte cou nt by microscopy (number/high power field) NONE NRG Automated urine sediment leukocyte count by microscopy (number/high power field) NONE NRG Bacteria detection in urine sediment by light microsco py NEGATIVE NRG Squamous epithelial cells detection in u rine sediment by light microscopy RARE NRG Crystals detection in urine sediment by light microsco py NONE NRG Casts detection in urine sediment by light microscopy PRESENT NRG Mucus detection in urine sediment by light microscopy SMALL NRG Complete urinalysis with reflex to culture NO NRG Hyaline casts detection in urine sediment by light rhonda roscopy RARE NRG PT panel in platelet poor plasma by coag ulation assay - 12/27/19 15:41 Prothrombin time (PT) in platelet poor plasma by coagu lation assay 13.3 s 12.2-14.7 INR in platelet poor plasma or blood by coagulation as say 1.0 0.8-1.4 Activated partial thromboplastin time (a PTT) in platelet poor plasma bycoagulation assay - 12/27/19 15:41 Activated partial thromboplastin time (a PTT) in platelet poor plasma bycoagulation assay 29 s 24-35 Fibrin D-dimer FEU measurement in platel et poor plasma (mass/volume) - 12/27/19 15:41 Fibrin D-dimer FEU measurement in platelet poor plasma (mass/volume) 1.58 ug/mL 0.00-0.49 Encounters ACCT No. Visit Date/Time Discharge Status Pt. Type Provider Facility Loc./Unit Complaint [id number] 12/27/2019 14:37:00 15:24:00 DIS Emergency NIDIA SALOMON MD Via [facility] ER STROKE LIKE SYM PTOMS [id number] 09/01/2019 02:45:00 08:16:00 DIS Emergency GREY MORAN MD [facility] ER SOB [id number] 08/22/2019 12:23:00 17:16:00 DIS Outpatient GREY MORAN MD [facility] ER CHEST PAIN [id number] 08/11/2019 21:10:00 15:45:00 DIS Inpatient ALVARADO DO, GUILLE V ia [facility] 4TH INFLUENZA B, HYPOXIA, G ENERALIZED WEAKNESS [id number] 06/19/2019 05:49:00 13:00:00 DIS Inpatient FRAN PINEDA MD [facility] 4TH COPD EXACERBATION,HYPOX IA [id number] 05/13/2019 16:34:00 13:13:00 DIS Inpatient VERONICA MANE MD [facility] 4TH R PYELONEPHRITIS [id number] 05/12/2019 11:20:00 15:32:00 DIS Outpatient ERASMO BURRELL CANDY ATTENDANT [facility] ER WEAKNESS [id number] 05/06/2019 20:50:00 11:20:00 DIS Inpatient FRAN PINEDA MD [facility] 4TH BRONCHITIS,HYPOXIA,SEPS IS,HTN [id number] 07/22/2018 10:53:00 23:59:59 CLS Outpatient JAY JAY THOMPSON MD [facility] RAD SCREENING [id number] 05/29/2017 08:02:00 23:59:59 CLS Outpatient JAY JAY THOMPSON MD [facility] SDC ANEMIA [id number] 05/24/2017 16:08:00 017 11:20:00 DIS Inpatient CARRILLO ALVARADO DOI V [facility] ICU UGI BLEED [id number] 05/20/2017 14:16:00 017 23:59:59 CLS Preadmit EMILY CAPELLAN CANDY ATTENDANT [facility] RAD SCREENING [id number] 05/07/2016 10:11:00 016 23:59:59 CLS Outpatient IVETTE TORRES MD [facility] RAD SCREENING [id number] 02/18/2016 14:44:00 23:59:59 CLS Outpatient GILLIAN CUNNINGHAM CANDY ATTENDANT [facility] RAD RLQ PAIN,FLANK PAIN [id number] 12/18/2015 13:19:00 13:51:00 DIS Emergency MITZY VIZCARRA, SABINE Kellogg [facility] ER SUTURE REMOVAL [id number] 12/14/2015 14:23:00 14:38:00 DIS Emergency JOYCE KAPLAN MD [facility] ER SUTURE REMOVAL [id number] 12/02/2015 11:04:00 14:28:00 DIS Emergency CAROLA GRAF [facility] ER FALL [id number] 02/20/2015 12:16:00 015 23:59:59 CLS Outpatient DARRIUS TRIPLETT [facility] RAD SCREENING [id number] 02/15/2014 14:39:00 014 23:59:59 CLS Outpatient JADEN DICKERSON MD [facility] RAD ROUTINE [id number] 04/11/2013 13:58:00 013 23:59:59 CLS Outpatient JADEN DICKERSON MD [facility] LAB THROMBOCYTOPENI A.LOW PLATELET COUNT [id number] 01/17/2013 13:49:00 013 23:59:59 CLS Outpatient JADNE DICKERSON MD [facility] RAD SCREENING [id number] 07/21/2012 14:45:00 Document Registration [id number] 06/08/2012 16:57:00 Document Registration [id number] 01/15/2012 10:08:00 Document Registration [id number] 12/26/2010 10:05:00 Document Registration [id number] 12/21/2009 09:49:00 Document Registration
[2019-12-27] MEDS ORDERED: NS IV 1000 ML 1,000 ML ONE (20:17)
[2019-12-27] MEDS ORDERED: CATHETER FLUSH 10 ML SYR IV PRN (20:30)
--- OUTSIDE RECORDS SUMMARY | 2019-12-27 21:26 | XMS REPORT | Continuity of Care Document ---
Author Author Nathaly ALEXIS [facility] Address Unknown Phone Unavailable Care Team Providers Care Warehouse Person Name Role Phone [facility] Unavailable Unavailable Problems No Data Provided for [...] INHALATION, GLAXOSMITHKLINE, 60 ea. BLIST PACK Active [id number] 11/2018 JAY JAY THOMPSON 01/21/2019 Pharmacy Data Transaction Service Facili ty ADVAIR DISKUS (FLUTICASONE/SALMETEROL), 250-50MCG, DISK W/DEV, INHALATION, GLAXOSMITHKLINE, 60 ea. BLIST PACK Active [id number] 09/2018 JAY JAY THOMPSON 05/02/2019 Pharmacy Data Transaction Service Facili ty ADVAIR DISKUS (FLUTICASONE/SALMETEROL), 250-50MCG, DISK W/DEV, INHALATION, GLAXOSMITHKLINE, 60 ea. BLIST PACK Active [id number] 07/2019 JAY JAY THOMPSON 07/20/2019 Pharmacy Data Transaction Service Facili ty ADVAIR DISKUS (FLUTICASONE/SALMETEROL), 250-50MCG, DISK W/DEV, INHALATION, GLAXOSMITHKLINE, 60 ea. BLIST PACK Active [id number] JAY JAY THOMPSON 10/19/2019 Pharmacy Data Transaction Service Facili ty AMOXICILLIN (AMOXICILLIN), 500 MG, CAPSU LE, ORAL, SANDOZ, 500 ea. BOTTLE Active [id number] 05/25/2019 JAY 05/28/2019 Pharmacy Data Trans action Service Facility AMOXICILLIN (AMOXICILLIN), 500 MG, CAPSU LE, ORAL, SANDOZ, 500 ea. BOTTLE Active [id number] 05/16/2019 MIRIAM, 05/17/2019 Pharmacy Data Trans action Service Facility ATENOLOL (ATENOLOL), 50 MG, TABLET, ORAL , [employer] 1000 ea. BOTTLE Active [id number] 08/12/2019 [facility] 08/12/2019 Pharmacy Data Trans action Service Facility ATENOLOL (ATENOLOL), 50 MG, TABLET, ORAL , [employer] 1000 ea. BOTTLE Active [id number] 11/15/2019 [facility] 11/15/2019 Pharmacy Data Trans action Service Facility ATENOLOL (ATENOLOL), 50MG, TABLET, ORAL, [employer], 1000 ea. BOTTLE Active [id number] 2019 JANEL, 05/01/2019 Pharmacy Data Transaction Service Facili ty AZITHROMYCIN (azithromycin), 250 MG, TAB LET, ORAL, [employer], 30 ea. BOTTLE Active [id number] 09/08/2019 JAY, 09/09/2019 Pharmacy Data Trans action Service Facility BENZONATATE (BENZONATATE), 100MG, CAPSUL E, ORAL, ZYDUS PHARMACEU, 100 ea. BOTTLE Active [id number] 06/22/2019 [facility], 06/23/2019 Pharmacy Data Trans action Service Facility BENZONATATE (benzonatate), 200 MG, CAPSU LE, ORAL, [employer] PHARMA, 100 ea. BOTTLE Active [id number] 03/28/2019 JAY, 05/10/2019 Pharmacy Data Trans action Service Facility CETIRIZINE HCL (cetirizine HCl), 10 MG, TABLET, ORAL, MAJOR PHARMACEU, 90 ea. BOTTLE Active [id number] 01/21/2019 JAY JAY THOMPSON 01/21/2019 Pharmacy Data Transaction Service Facility CETIRIZINE HCL (cetirizine HCl), 10 MG, TABLET, ORAL, MAJOR PHARMACEU, 90 ea. BOTTLE Active [id number] 04/21/2019 JAY JAY THOMPSON 05/02/2019 Pharmacy Data Transaction Service Facility CETIRIZINE HCL (cetirizine HCl), 10 MG, TABLET, ORAL, [employer]JOR PHARMACEU, 90 ea. BOTTLE Active [id number] 07/20/2019 JAY JAY THOMPSON 07/20/2019 Pharmacy Data Transaction Service Facility CETIRIZINE HCL (cetirizine HCl), 10 MG, TABLET, ORAL, MAJOR PHARMACEU, 90 ea. BOTTLE Active [id number] 10/18/2019 JAY JAY THOMPSON 10/19/2019 Pharmacy Data Transaction Service Facility CHOLESTYRAMINE (cholestyramine (with sug ar)), 4 G, POWD PACK, ORAL, ZYDUS PHARMACEU, 60 ea. PACKET Active [id number] 10/19/2019 TIMI, 10/20/2019 Pharmacy Data Transaction Service Facility COMBIVENT RESPIMAT (IPRATROPIUM/ALBUTERO L SULFATE), 20-100 MCG, MIST INHAL, INHALATION, BOEHRINGER ING., 4 g AER W/ADAP Active [id number] 10/2018 CAROLA SERRATO 05/25/2019 Pharmacy Data Transaction Service Facili ty COMBIVENT RESPIMAT (IPRATROPIUM/ALBUTERO L SULFATE), 20-100 MCG, MIST INHAL, INHALATION, BOEHRINGER ING., 4 g AER W/ADAP Active [id number] 07/2018 AMA, 05/21/2019 Pharmacy Data Transaction Service Facili ty DOXYCYCLINE HYCLATE (DOXYCYCLINE HYCLATE ), 100 MG, CAPSULE, ORAL, [employer] 500 ea. BOTTLE Active [id number] 04/19/2019 TIMI, 05/01/2019 Pharmacy Data Transaction Service Facility FLUCONAZOLE (FLUCONAZOLE), 150MG, TABLET , ORAL, [employer] PHARMA, 1 ea. BLIST PACK Active [id number] 03/30/2019 AMA, 04/30/2019 Pharmacy Data Trans action Service Facility LISINOPRIL (LISINOPRIL), 10 MG, TABLET, ORAL, EXELAN PHARMACE, 1000 ea. BOTTLE Active [id number] 08/15/2019 [facility] 08/16/2019 Pharmacy Data Trans action Service Facility LISINOPRIL (LISINOPRIL), 10 MG, TABLET, ORAL, EXELAN PHARMACE, 1000 ea. BOTTLE Active [id number] 11/14/2019 [facility] 11/15/2019 Pharmacy Data Trans action Service Facility MONTELUKAST SODIUM (MONTELUKAST SODIUM), 10 MG, TABLET, ORAL, [employer]ARMACE, 1000 ea. BOTTLE Active [id number] 05/18/2019 AMA, 05/19/2019 Pharmacy Data Transaction Service Facility MONTELUKAST SODIUM (MONTELUKAST SODIUM), 10 MG, TABLET, ORAL, [employer]ARMACE, 1000 ea. BOTTLE Active [id number] 07/28/2019 AMA, 07/30/2019 Pharmacy Data Transaction Service Facility MONTELUKAST SODIUM (MONTELUKAST SODIUM), 10 MG, TABLET, ORAL, [employer]ARMACE, 1000 ea. BOTTLE Active [id number] 12/10/2018 JAY, 12/10/2018 Pharmacy Data Transaction Service Facility MONTELUKAST SODIUM (MONTELUKAST SODIUM), 10 MG, TABLET, ORAL, [employer]ARMACE, 1000 ea. BOTTLE Active [id number] 02/10/2019 JAY, 02/11/2019 Pharmacy Data Transaction Service Facility MONTELUKAST SODIUM (MONTELUKAST SODIUM), 10 MG, TABLET, ORAL, [employer]ARMACE, 1000 ea. BOTTLE Active [id number] 03/11/2019 JAY, 05/07/2019 Pharmacy Data Transaction Service Facility OSELTAMIVIR PHOSPHATE (oseltamivir phosp hate), 75 MG, CAPSULE, ORAL, ZYDUS PHARMACEU, 10 ea. BLIST PACK Active [id number] 08/13/2019 MIRIAM, 08/13/2019 Pharmacy Data Transaction Service Facility PANTOPRAZOLE SODIUM (pantoprazole sodium ), 40 MG, TABLET DR, ORAL, AMNEAL PHARMACE, 90 ea. BOTTLE Active [id number] 08/12/2019 JAY JAY THOMPSON 08/12/2019 Pharmacy Data Transaction Service Facility PANTOPRAZOLE SODIUM (PANTOPRAZOLE SODIUM ), 40 MG, TABLET DR, ORAL, [employer]ORRENT [employer]ARMAC, 90 ea. BOTTLE Active [id number] 02/13/2019 JAY JAY THOMPSON 02/16/2019 Pharmacy Data Transaction Service Facility PREDNISONE (PREDNISONE), 10MG, TAB DS PK , ORAL, [employer], 21 ea. DOSE-PACK Active [id number] 08/13/2019 MIRIAM, 08/13/2019 Pharmacy Data Trans action Service Facility PREDNISONE (prednisone), 20 MG, TABLET, ORAL, [employer], 500 ea. BOTTLE Active [id number] 06/22/2019 [facility], 06/23/2019 Pharmacy Data Trans action Service Facility PREDNISONE (PREDNISONE), 20MG, TABLET, O RAL, [employer] 500 ea. BOTTLE Active [id number] 09/01/2019 [place], 09/02/2019 Pharmacy Data Trans action Service Facility PREDNISONE (PREDNISONE), 20MG, TABLET, O RAL, [employer] 500 ea. BOTTLE Active [id number] 05/18/2019 AMA, 05/19/2019 Pharmacy Data Trans action Service Facility PREDNISONE (PREDNISONE), 20MG, TABLET, O RAL, [employer] 500 ea. BOTTLE Active [id number] 10/15/2018 AMA, 10/15/2018 Pharmacy Data Trans action Service Facility PROAIR RESPICLICK (ALBUTEROL SULFATE), 9 0 MCG, AER POW BA, INHALATION, [employer], 1 ea. AER W/ADAP Active [id number] 09/01/2019 [place], 09/02/2019 Pharmacy Data Transaction Service Facility SIMVASTATIN (SIMVASTATIN), 40 MG, TABLET , ORAL, [employer] [facility], 1000 ea. BOTTLE Active [id number] 08/12/2019 JANELAP 08/12/2019 Pharmacy Data Trans action Service Facility SIMVASTATIN (SIMVASTATIN), 40 MG, TABLET , ORAL, [employer] [facility], 1000 ea. BOTTLE Active [id number] 11/15/2019 JANEL,AP 11/15/2019 Pharmacy Data Trans action Service Facility SUCRALFATE (sucralfate), 1 G, TABLET, OR AL, [employer] 100 ea. BOTTLE Active [id number] 02/13/2019 JAY JAY THOMPSON 02/16/2019 Pharmacy Data Trans action Service Facility SUCRALFATE (sucralfate), 1 G, TABLET, OR AL, [employer] 100 ea. BOTTLE Active [id number] 08/12/2019 JAY JAY THOMPSON 08/12/2019 Pharmacy Data Trans action Service Facility SUCRALFATE (sucralfate), 1 G, TABLET, OR AL, [employer] 100 ea. BOTTLE Active [id number] 11/10/2019 JAY JAY THOMPSON 11/10/2019 Pharmacy Data Trans action Service [facility] Allergies, Adverse Reactions, Alerts No Known Medication [...]
--- OUTSIDE RECORDS SUMMARY | 2019-12-27 21:27 | XMS REPORT | Continuity of Care Document ---
Author Organization Unknown Address Unknown Phone Unavailable Allergies Active Description Code Type Severity Reaction Onset Reported/Identified Relationship to Patient Clinical Status Yes No Known Drug Allergies [id number] Drug Allergy Unknown N/A 06/19/2019 Medications There [...] W/O STRIKE 12/02/2015 CAROLA GRAF Ot Y92.[address] 12/02/2015 CAROLA GRAF Ot Y99.8 OTHER EXTERNAL CAUSE STATUS 12/02/2015 CAROLA GRAF Ot Z79.82 SHELTER (CURRENT) USE OF ASPIRIN 12/04/2015 CAROLA GRAF [...] W/O STRIKE 12/04/2015 CAROLA GRAF Ot Y92.[address] 12/04/2015 CAROLA GRAF Ot Y99.8 OTHER EXTERNAL CAUSE STATUS 12/04/2015 CAROLA GRAF Ot Z79.82 PRODUCTION DESIGNER (CURRENT) USE OF ASPIRIN 12/08/2015 CAROLA GRAF [...] W/O STRIKE 12/08/2015 CAROLA GRAF Ot Y92.[address] 12/08/2015 CAROLA GRAF Ot Y99.8 OTHER EXTERNAL CAUSE STATUS 12/08/2015 CAROLA GRAF Ot Z79.82 PRODUCTION DESIGNER (CURRENT) USE OF ASPIRIN 12/14/2015 JOYCE KAPLAN [...] 02/18/2016 Ot 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 NOS 02/18/2016 JYALA ROCK, JADEN Mcgrath Ot V76.12 OTH SCREEN MAMMO-MALIGN NEOPLASM OF [place] 02/18/2016 JAYLA ROCK, JADEN Mcgrath Ot 287.5 THROMBOCYTOPENIA NOS 02/18/2016 JAYLA ROCK, JADEN Mcgrath Ot V76.12 OTH SCREEN MAMMO-MALIGN NEOPLASM OF [place] 02/18/2016 DARRIUS TRIPLETT Ot V76.12 OTH SCREEN MAMMO-MALIGN NEOPLASM OF [place] 02/19/2016 GILLIAN CUNNINGHAM CARDIOLOGY CLINICAL NURSE SPECIALIST Ot R10.31 RIGHT LOWER QUADRANT PAIN 02/19/2016 GILILAN CUNNINGHAM CARDIOLOGY CLINICAL NURSE SPECIALIST Ot R10.84 GENERALIZED ABDOMINAL PAIN 03/11/2016 GILLIAN CUNNINGHAM CARDIOLOGY CLINICAL NURSE SPECIALIST Ot R10.31 RIGHT LOWER QUADRANT PAIN 03/11/2016 GILLIAN CUNNINGAHM CARDIOLOGY CLINICAL NURSE SPECIALIST Ot R10.84 GENERALIZED ABDOMINAL PAIN 03/21/2016 GILLIAN CUNNINGHAM CARDIOLOGY CLINICAL NURSE SPECIALIST Ot R10.31 RIGHT LOWER QUADRANT PAIN 03/21/2016 GILLIAN CUNNINGHAM CARDIOLOGY CLINICAL NURSE SPECIALIST Ot R10.84 GENERALIZED ABDOMINAL PAIN 05/07/2016 Ot [...] Ot V76.12 OTH SCREEN MAMMO-MALIGN NEOPLASM OF [place] 05/07/2016 DARRIUS TRPILETTP Ot V76.12 OTH SCREEN MAMMO-MALIGN NEOPLASM OF [place] 05/07/2016 GILLIAN CUNNINGHAM CARDIOLOGY CLINICAL NURSE SPECIALIST Ot R10.31 RIGHT LOWER QUADRANT PAIN 05/07/2016 GILLIAN CUNNINGHAM CARDIOLOGY CLINICAL NURSE SPECIALIST Ot R10.84 GENERALIZED ABDOMINAL PAIN 05/07/2016 IVETTE [...] MAMMO-MALIGN NEOPLASM OF [place] 05/30/2016 GILLIAN CUNNINGHAM CARDIOLOGY CLINICAL NURSE SPECIALIST Ot R10.31 RIGHT LOWER QUADRANT PAIN 05/30/2016 GILLIAN CUNNINGHAM CARDIOLOGY CLINICAL NURSE SPECIALIST Ot R10.84 GENERALIZED ABDOMINAL PAIN 05/30/2016 MELISSA [...] MAMMO-MALIGN NEOPLASM OF [place] 06/06/2016 GILLIAN CUNNINGHAM CARDIOLOGY CLINICAL NURSE SPECIALIST Ot R10.31 RIGHT LOWER QUADRANT PAIN 06/06/2016 GILLIAN CUNNINGHAM CARDIOLOGY CLINICAL NURSE SPECIALIST Ot R10.84 GENERALIZED ABDOMINAL PAIN 06/06/2016 MELISSA [...] MAMMO-MALIGN NEOPLASM OF [place] 08/21/2016 GILLIAN CUNNINGHAM CARDIOLOGY CLINICAL NURSE SPECIALIST Ot R10.31 RIGHT LOWER QUADRANT PAIN 08/21/2016 GILLIAN CUNNINGHAM CARDIOLOGY CLINICAL NURSE SPECIALIST Ot R10.84 GENERALIZED ABDOMINAL PAIN 08/21/2016 MELISSA [...] MAMMO-MALIGN NEOPLASM OF [place] 10/01/2016 GILLIAN CUNNINGHAM CARDIOLOGY CLINICAL NURSE SPECIALIST Ot R10.31 RIGHT LOWER QUADRANT PAIN 10/01/2016 GILLIAN CUNNINGHAM CARDIOLOGY CLINICAL NURSE SPECIALIST Ot R10.84 GENERALIZED ABDOMINAL PAIN 10/01/2016 MELISSA ROCK, IVETTE Martinez Ot Z12.31 ENCNTR SCREEN MAMMOGRAM FOR MALIGNANT NE 05/21/2017 EMILY CAPELLAN CARDIOLOGY CLINICAL NURSE SPECIALIST Ot Z12.31 ENCNTR SCREEN MAMMOGRAM FOR MALIGNANT [...] MAMMO-MALIGN NEOPLASM OF [place] 05/24/2017 GILLIAN CUNNINGHAM CARDIOLOGY CLINICAL NURSE SPECIALIST Ot R10.31 RIGHT LOWER QUADRANT PAIN 05/24/2017 GILLIAN CUNNINGHAM CARDIOLOGY CLINICAL NURSE SPECIALIST Ot R10.84 GENERALIZED ABDOMINAL PAIN 05/24/2017 MELISSA ROCK, IVETTE Martinez Ot Z12.31 ENCNTR SCREEN MAMMOGRAM FOR MALIGNANT NE 05/24/2017 EMILY CAPELLAN CARDIOLOGY CLINICAL NURSE SPECIALIST Ot Z12.31 ENCNTR SCREEN MAMMOGRAM FOR MALIGNANT [...] MAMMO-MALIGN NEOPLASM OF [place] 05/24/2017 GILLIAN CUNNINGHAM CARDIOLOGY CLINICAL NURSE SPECIALIST Ot R10.31 RIGHT LOWER QUADRANT PAIN 05/24/2017 GILLIAN CUNNINGHAM CARDIOLOGY CLINICAL NURSE SPECIALIST Ot R10.84 GENERALIZED ABDOMINAL PAIN 05/24/2017 MELISSA ROCK, IVETTE Martinez Ot Z12.31 ENCNTR SCREEN MAMMOGRAM FOR MALIGNANT NE 05/24/2017 EMILY CAPELLAN CARDIOLOGY CLINICAL NURSE SPECIALIST Ot Z12.31 ENCNTR SCREEN MAMMOGRAM FOR MALIGNANT NE 05/24/2017 EMILY CAPELLAN CARDIOLOGY CLINICAL NURSE SPECIALIST Ot Z12.31 ENCNTR SCREEN MAMMOGRAM FOR MALIGNANT NE 05/25/2017 GUILLE ALVARADO DO Ot I10 ESSENTIAL (PRIMARY) HYPERTENSION 05/25/2017 GUILLE ALVARADO DO Ot I25.2 OLD MYOCARDIAL INFARCTION 05/25/2017 GUILLE ALVARADO DO Ot K92.2 GASTROINTESTINAL HEMORRHAGE, UNSPECIFIED 05/25/2017 GUILLE ALVARADO DO Ot Z79.02 PRODUCTION DESIGNER (CURRENT) USE OF ANTITHROMBOTI 05/25/2017 GUILLE ALVARADO DO Ot Z79.82 PRODUCTION DESIGNER (CURRENT) USE OF ASPIRIN 05/25/2017 CARRILLO ALVARADO DOI Ot Z79.89 9 OTHER PRODUCTION DESIGNER (CURRENT) DRUG THERAPY 05/25/2017 GUILLE ALVARADO DO Ot Z86.73 PRSNL HX OF TIA (TIA), AND CEREB INFRC W 05/25/2017 CHRISTIANO VIZCARRA GUILLE Ot I10 ESSENTIAL (PRIMARY) HYPERTENSION 05/25/2017 CARRILLO ALVARADO DOI Ot I25.2 OLD MYOCARDIAL INFARCTION 05/25/2017 GUILLE ALVARADO DO Ot K92.2 GASTROINTESTINAL HEMORRHAGE, UNSPECIFIED 05/25/2017 GUILLE ALVARADO DO Ot Z79.02 SHELTER (CURRENT) USE OF ANTITHROMBOTI 05/25/2017 GUILLE ALVARADO DO Ot Z79.82 PRODUCTION DESIGNER (CURRENT) USE OF ASPIRIN 05/25/2017 CARRILLO ALVARADO DOI Ot Z79.89 9 OTHER SHELTER (CURRENT) DRUG THERAPY 05/25/2017 GUILLE ALVARADO DO [...] MAMMO-MALIGN NEOPLASM OF [place] 05/29/2017 GILLIAN CUNNINGHAM CARDIOLOGY CLINICAL NURSE SPECIALIST Ot R10.31 RIGHT LOWER QUADRANT PAIN 05/29/2017 GILLIAN CUNNINGHAM CARDIOLOGY CLINICAL NURSE SPECIALIST Ot R10.84 GENERALIZED ABDOMINAL PAIN 05/29/2017 MELISSA [...] SCREEN MAMMO-MALIGN NEOPLASM OF [place] 07/22/2018 IOANADARRIUS PLATE FILLER Ot V76.12 OTH SCREEN MAMMO-MALIGN NEOPLASM OF [place] 07/22/2018 GILLIAN CUNNINGHAM CARDIOLOGY CLINICAL NURSE SPECIALIST Ot R10.31 RIGHT LOWER QUADRANT PAIN 07/22/2018 YOVANI CUNNINGHAMJANIE Mcgrath CARDIOLOGY CLINICAL NURSE SPECIALIST Ot R10.84 GENERALIZED ABDOMINAL PAIN 07/22/2018 MELISSA [...] Ot I25. 10 ATHSCL HEART DISEASE OF [place] CORONARY 05/10/2019 FRAN PINEDA MD Ot I25. [...] Ot I25. 10 ATHSCL HEART DISEASE OF [place] CORONARY 05/10/2019 FRAN PINEDA MD, Ot I25. [...] Ot I25. 10 ATHSCL HEART DISEASE OF [place] CORONARY 05/16/2019 VERONICA MANE MD, Ot I25. [...] APRN Ot I25.10 ATHSCL HEART DISEASE OF [place] CORONARY 05/17/2019 ERASMO BURRELL APRN Ot K59.00 CONSTIPATION, UNSPECIFIED 05/17/2019 ERASMO BURRELL APRN Ot N39 .0 URINARY TRACT INFECTION, SITE NOT SPECIF 05/17/2019 ERASMO BURRELL APRN Ot R10.31 RIGHT LOWER QUADRANT PAIN 05/17/2019 ERASMO BURRELL APRN Ot Z79.51 PRODUCTION DESIGNER (CURRENT) USE OF INHALED STERO 05/17/2019 ERASMO BURRELL APRN Ot Z79.82 PRODUCTION DESIGNER (CURRENT) USE OF ASPIRIN 05/17/2019 ERASMO BURRELL APRN Ot Z80 .3 FAMILY HISTORY OF MALIGNANT NEOPLASM OF 05/17/2019 ERASMO BURRELL APRN Ot Z82.49 FAMILY HX OF ISCHEM HEART DIS AND OTH DI 05/17/2019 ERASMO BURRELL APRN Ot Z86.73 PRSNL HX OF TIA (TIA), AND CEREB INFRC W 05/17/2019 ERASOM BURRELL APRN Ot Z90.710 ACQUIRED ABSENCE OF BOTH CERVIX AND UTER 06/22/2019 FRAN PINEDA MD Ot I07. 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 10 ATHSCL HEART DISEASE OF [place] CORONARY 06/22/2019 FRAN PINEDA MD Ot I25. [...] GUILLE Ot I25.10 ATHSCL HEART DISEASE OF [place] CORONARY 08/13/2019 ALVARADO DO, GUILLE Ot I25.2 [...] MD Ot I25.10 ATHSCL HEART DISEASE OF [place] CORONARY 08/22/2019 GREY MORAN MD Ot I25.2 OLD MYOCARDIAL INFARCTION 08/22/2019 GREY MORAN MD Ot R07.89 OTHER CHEST PAIN 08/22/2019 GREY MORAN MD Ot R07.9 CHEST PAIN, UNSPECIFIED 08/22/2019 GREY MORAN MD Ot Z79.51 PRODUCTION DESIGNER (CURRENT) USE OF INHALED STERO 08/22/2019 GREY MORAN MD Ot Z79.82 PRODUCTION DESIGNER (CURRENT) USE OF ASPIRIN 08/22/2019 GREY MORAN MD Ot Z80.3 FAMILY HISTORY OF MALIGNANT NEOPLASM OF 08/22/2019 GREY MORAN MD Ot Z86.73 PRSNL HX OF TIA (TIA), AND CEREB INFRC W 08/30/2019 GREY MORAN MD Ot E78.00 PURE HYPERCHOLESTEROLEMIA, UNSPECIFIED 08/30/2019 GREY MORAN MD Ot I10 ESSENTIAL (PRIMARY) HYPERTENSION 08/30/2019 GREY MORAN MD Ot I25.10 ATHSCL HEART DISEASE OF [place] CORONARY 08/30/2019 GREY MORAN MD Ot I25.2 OLD MYOCARDIAL INFARCTION 08/30/2019 GREY MORAN MD Ot R07.89 OTHER CHEST PAIN 08/30/2019 GREY MORAN MD Ot R07.9 CHEST PAIN, UNSPECIFIED 08/30/2019 GREY MORAN MD Ot Z79.51 PRODUCTION DESIGNER (CURRENT) USE OF INHALED STERO 08/30/2019 GREY MORAN MD Ot Z79.82 PRODUCTION DESIGNER (CURRENT) USE OF ASPIRIN 08/30/2019 GREY MORAN MD Ot Z80.3 FAMILY HISTORY OF MALIGNANT NEOPLASM OF 08/30/2019 GREY MORAN MD Ot Z86.73 PRSNL HX OF TIA (TIA), AND CEREB INFRC W 09/01/2019 GREY MORAN MD Ot E78.00 PURE HYPERCHOLESTEROLEMIA, UNSPECIFIED 09/01/2019 GREY MORAN MD Ot I10 ESSENTIAL (PRIMARY) HYPERTENSION 09/01/2019 GREY MORAN MD Ot I25.10 ATHSCL HEART DISEASE OF [place] CORONARY 09/01/2019 GREY MORAN MD Ot I25.2 OLD MYOCARDIAL INFARCTION 09/01/2019 GREY MORAN MD Ot J44.1 CHRONIC OBSTRUCTIVE PULMONARY DISEASE W 09/01/2019 GREY MORAN MD Ot R06.02 SHORTNESS OF BREATH 09/01/2019 GREY MORAN MD Ot Z79.02 PRODUCTION DESIGNER (CURRENT) USE OF ANTITHROMBOTI 09/01/2019 GREY MORAN MD Ot Z79.51 SHELTER (CURRENT) USE OF INHALED STERO 09/01/2019 GREY MORAN MD Ot Z79.82 PRODUCTION DESIGNER (CURRENT) USE OF ASPIRIN 09/01/2019 GREY MORAN [...] MD, Ot I25.10 ATHSCL HEART DISEASE OF [place] CORONARY 09/05/2019 GREY MORAN MD, Ot I25.2 OLD MYOCARDIAL INFARCTION 09/05/2019 GREY MORAN MD, Ot J44.1 CHRONIC OBSTRUCTIVE PULMONARY DISEASE W 09/05/2019 GREY MORAN MD, Ot R06.02 SHORTNESS OF BREATH 09/05/2019 GREY MORAN MD, Ot Z79.02 SHELTER (CURRENT) USE OF ANTITHROMBOTI 09/05/2019 GREY MORAN MD, Ot Z79.51 PRODUCTION DESIGNER (CURRENT) USE OF INHALED STERO 09/05/2019 GREY MORAN MD, Ot Z79.82 SHELTER (CURRENT) USE OF ASPIRIN 09/05/2019 GREY MORAN [...] ABO+Rh group AN NRG Transfusion band number [id number] NRG Blood group antibody screen NEGATIVE NR [...] LEUKO REDUCED AS1 T RANSFUSED 05/29/17 1244 [facility] Blood type T Indirect antibody screen pa ruben - 05/29/17 08:24 ABO+Rh group AN NR Transfusion band number [id number] NR Blood group antibody screen NEGATIVE NR [...] culture - 05/12/19 11:30 Bacterial urine culture [id number] NRG COLONY COUNT 40,000 CFU/ML NRG FTX;REPORTABLE [...] INFLUENZA A AND B ANTIGENS BY IA [facility] Bordetella pertussis and parapertussis D NA detection - 06/20/19 12:00 Bordetella parapertussis DNA detection b y probe and target amplification method Not Detected Not Detected Bordetella pertussis and parapertussis DNA detection Not Detected Not Detected Sputum Gram stain - 06/21/19 08:50 Sputum Gram stain Mixed bacterial helena [facility] Bacterial sputum culture - 06/21/19 08:5 0 QUANTITY OF GROWTH . [facility] Bacterial sputum culture USUAL RESP [facility] Automated blood complete blood count (he [...] Status Pt. Type Provider Facility Loc./Unit Complaint [id number] 09/01/2019 02:45:00 08:16:00 DIS Emergency GREY MORAN MD [facility] ER SOB [id number] 08/22/2019 12:23:00 17:16:00 DIS Outpatient GREY MORAN MD [facility] ER CHEST PAIN [id number] 08/11/2019 21:10:00 020 15:45:00 DIS Inpatient GUILLE ALVARADO DO, V [facility] 4TH INFLUENZA B, HYPOXIA, G ENERALIZED WEAKNESS [id number] 06/19/2019 05:49:00 13:00:00 DIS Inpatient MIRIAM ROCK, FRAN Mcgrath [facility] 4TH COPD EXACERBATION,HYPOX IA [id number] 05/13/2019 16:34:00 13:13:00 DIS Inpatient VERONICA MANE MD [facility] 4TH R PYELONEPHRITIS [id number] 05/12/2019 11:20:00 15:32:00 DIS Outpatient ERASMO BURRELL CARDIOLOGY CLINICAL NURSE SPECIALIST [facility] ER WEAKNESS [id number] 05/06/2019 20:50:00 11:20:00 DIS Inpatient MIRIAM ROCK, FRAN Mcgrath [facility] 4TH BRONCHITIS,HYPOXIA,SEPS IS,HTN [id number] 07/22/2018 10:53:00 23:59:59 CLS Outpatient JAY JAY THOMPSON MD [facility] RAD SCREENING [id number] 05/29/2017 08:02:00 23:59:59 CLS Outpatient JAY JAY THOMPSON MD [facility] SDC ANEMIA [id number] 05/24/2017 16:08:00 11:20:00 DIS Inpatient GUILLE ALVARADO DO V [facility] ICU UGI BLEED [id number] 05/20/2017 14:16:00 23:59:59 CLS Preadmit EMILY CAPELLAN CARDIOLOGY CLINICAL NURSE SPECIALIST [facility] RAD SCREENING [id number] 05/07/2016 10:11:00 23:59:59 CLS Outpatient IVETTE TORRES MD [facility] RAD SCREENING [id number] 02/18/2016 14:44:00 23:59:59 CLS Outpatient GILLIAN CUNNINGHAM CARDIOLOGY CLINICAL NURSE SPECIALIST [facility] RAD RLQ PAIN,FLANK PAIN [id number] 12/18/2015 13:19:00 13:51:00 DIS Emergency SABINE FORRESTER DO [facility] ER SUTURE REMOVAL [id number] 12/14/2015 14:23:00 14:38:00 DIS Emergency ROSAURA ROCK, JOYCE Ash [facility] ER SUTURE REMOVAL [id number] 12/02/2015 11:04:00 14:28:00 DIS Emergency CAROLA GRAF [facility] ER FALL [id number] 02/20/2015 12:16:00 015 23:59:59 CLS Outpatient DARRIUS TRIPLETT [facility] RAD SCREENING [id number] 02/15/2014 14:39:00 014 23:59:59 CLS Outpatient JADEN DICKERSON MD [facility] RAD ROUTINE [id number] 04/11/2013 13:58:00 013 23:59:59 CLS Outpatient JADEN DICKERSON MD [facility] LAB THROMBOCYTOPENI A.LOW PLATELET COUNT [id number] 01/17/2013 13:49:00 013 23:59:59 CLS Outpatient JADEN DICKERSON MD [facility] RAD SCREENING [id number] 12/27/2019 17:31:[address] Inpatient FRAN PINEDA MD [facility] ICU CVA,AMS,ELEVATED TROPONIN [id number] 07/21/2012 14:45:00 Document Registration [id number] 06/08/2012 16:57:00 Document Registration [id number] 01/15/2012 10:08:00 Document Registration [id number] 12/26/2010 10:05:00 Document Registration [id number] 12/21/2009 09:49:00 Document Registration
[2019-12-27] MEDS: NS IV 1000 ML 1,000 ML IV SCH (21:34)
[2019-12-27] MEDS: niCARdipine 50 MG/NS 250 ML IV DRIP IV SCH ×2 (21:40)
[2019-12-27] MEDS ORDERED: DexMEDEtomidine 250 ML DRIP 250 ML IV SCH ×2 (22:30)
--- NOTE | 2019-12-27 23:09 | NUR ---
THIS RN SPOKE WITH DR. BAE AT 2225 AND RECEIVED NEW ORDERS TO KEEP SBP BETWEEN 180 AND 220 D/T THE PT NOT RECEIVING TPA - CARDENE HELD AT THIS TIME. ALSO RECEIVED NEW ORDER FOR PRECEDEX D/T PT TRYING TO CLIMB OUT OF BED AND PULLING AT TUBES AND LINES WITH OTHER INTERVENTIONS UNSUCCESSFUL.
[2019-12-28] VITALS (13 sets, daily range): BP systolic 149–180; BP diastolic 72–90
[2019-12-28 02:54] LABS: BASOPHILS % (AUTO) 0 % (0-10); EOSINOPHILS % (AUTO) 0 % (0-10); HEMATOCRIT 39 % (35-52); HEMOGLOBIN 12.8 G/DL (11.5-16.0); LYMPHOCYTES # (AUTO) 2.3 X 10^3 (1.0-4.0); LYMPHOCYTES % (AUTO) 17 % (12-44); MEAN CORPUSCULAR HEMOGLOBIN 29 PG (25-34); MEAN CORPUSCULAR HGB CONC 33 G/DL (32-36); MEAN CORPUSCULAR VOLUME 86 FL (80-99); MEAN PLATELET VOLUME 11.6 FL (7.4-10.4); MONOCYTES # (AUTO) 1.2 X 10^3 (0.0-1.0); MONOCYTES % (AUTO) 9 % (0-12); NEUTROPHILS # (AUTO) 10.2 X 10^3 (1.8-7.8); NEUTROPHILS % (AUTO) 75 % (42-75); PLATELET COUNT 170 10^3/uL (130-400); RED CELL DISTRIBUTION WIDTH 13.7 % (10.0-14.5); WHITE BLOOD COUNT 13.7 10^3/uL (4.3-11.0)
[2019-12-28 03:12] LABS: CHLORIDE 105 MMOL/L (98-107); POTASSIUM 3.5 MMOL/L (3.6-5.0); SODIUM 138 MMOL/L (135-145)
[2019-12-28 03:13] LABS: ALBUMIN 3.8 GM/DL (3.2-4.5)
[2019-12-28 03:14] LABS: CALCIUM 9.2 MG/DL (8.5-10.1); TRIGLYCERIDES 90 MG/DL (<150); VLDL CHOLESTEROL 18 MG/DL (5-40)
[2019-12-28 03:15] LABS: GLUCOSE 106 MG/DL (70-105); TOTAL PROTEIN 6.2 GM/DL (6.4-8.2)
[2019-12-28 03:16] LABS: CARBON DIOXIDE 21 MMOL/L (21-32)
[2019-12-28 03:17] LABS: BILIRUBIN,TOTAL 0.8 MG/DL (0.1-1.0)
[2019-12-28 03:18] LABS: PHOSPHORUS 3.2 MG/DL (2.3-4.7)
[2019-12-28 03:19] LABS: ALKALINE PHOSPHATASE 90 U/L (40-136); CREATININE SERUM 0.88 MG/DL (0.60-1.30); GFR ESTIMATED > 60
[2019-12-28 03:20] LABS: BUN/CREATININE RATIO 14; CHOLESTEROL 160 MG/DL (< 200)
[2019-12-28 03:21] LABS: HDL CHOLESTEROL 52 MG/DL (40-60)
[2019-12-28 03:22] LABS: ALANINE AMINOTRANSFERASE 14 U/L (0-55); MAGNESIUM 1.3 MG/DL (1.6-2.4)
[2019-12-28] MEDS: NS IV 1000 ML 1,000 ML IV SCH ×2 (04:48→14:49)
--- NOTE | 2019-12-28 05:06 | Pulmonary Consultation ---
History of Present Illness History of Present Illness Date Seen by Provider: Dec 28, 2019 Time Seen by Provider: 05:00 Date of Admission History of Present Illness 89yo hx of hemorrhagic CVA 2017 presented to ED secondary to acute MS changes, aphasia, stroke symptoms. She was not given TPA secondary to unknown down time. Pt had expressive aphasia upon ED admission. CT showed subacute stroke. Pt lives alone. I am consulted for ICU management. Allergies and Home Medications Allergies Coded Allergies: No Known Drug Allergies (Unverified , 06/19/19) Home Medications Albuterol Sulfate 90 Mcg Aer.pow.ba, 1-2 PUFF IH Q4H PRN for WHEEZING Prescribed by: GREY MORAN on 09/01/19 0432 Albuterol/Ipratropium 4 Gm Aero, 1 PUFF IH Q6H PRN for SHORTNESS OF BREATH, (Reported) Aspirin 81 Mg Tablet.dr, 81 MG PO HS, (Reported) Atenolol 50 Mg Tablet, 50 MG PO HS, (Reported) LAST FILLED #90 04-19-19 Bimatoprost 2.5 Ml Drops, 1 DROP OD HS, (Reported) Cetirizine HCl 10 Mg Tablet, 10 MG PO HS, (Reported) Fluticasone Propionate 9.9 Ml [facility].susp, 1 SPRAY NS DAILY PRN for CONGESTION, (Reported) Fluticasone/Salmeterol 1 Each Blst.w.dev, 1 PUFF IH BID, (Reported) Lisinopril 10 Mg Tablet, 10 MG PO HS, (Reported) LAST FILLED 02-10-2019 #90 Montelukast Sodium 10 Mg Tablet, 10 MG PO HS, (Reported) Oseltamivir Phosphate 75 Mg Cap, 75 MG PO DAILY Prescribed by: FRAN PINEDA on 08/13/19 1245 Pantoprazole Sodium 40 Mg Tablet.dr, 40 MG PO DAILY, (Reported) Potassium Chloride 10 Meq Tab.er.prt, 10 MEQ PO DAILY, (Reported) UNKNOWN LAST FILLED DATE, STATES SHE USES HER HUSBANDS SUPPLY Prednisone 10 Mg Tab.ds.pk, 10 MG PO DAILY Take 6 tabs(60mg)daily,decrease by 1 tab(10MG)daily. Prescribed by: FRAN PINEDA on 08/13/19 1246 Prednisone 20 Mg Tab, 40 MG PO DAILY Prescribed by: GREY MORAN on 09/01/19 0432 Simvastatin 40 Mg Tablet, 40 MG PO HS, (Reported) LAST FILLED 01-25-2019 #90 Sucralfate 1 Gm Tablet, 1 GM PO ACHS, (Reported) Vit C/E/Zn/Coppr/Lutein/Zeaxan 1 Each Capsule, 1 CAP PO BID, (Reported) [Nasal Rinse] , NS QID PRN for DRY NOSE, (Reported) MIXES PER DR. OSHEA: 1 TBSP BAKING SODA 1/4 TSP SALT 1 CUP WARM WATER SQUIRTS IN EACH NOSTRIL WITH SYRINGE 4X DAILY NEEDED Past Sjvtxqb-Mbxjtd-Eiboft Hx Past Med/Social Hx: Reviewed Nursing Past Med/Soc Hx Patient Social History Alcohol Use: Denies Use Recreational Drug Use: No Smoking Status: Never a Smoker 2nd Hand Smoke Exposure: No Recent Foreign Travel: No Contact w/Someone Who Travel: No Recent Infectious Disease Expo: No Recent Hopitalizations: No Immunizations Up To Date Tetanus Booster (TDap): More than 5yrs PED Vaccines UTD: Yes Date of Pneumonia Vaccine: Apr 19, 2016 Date of Influenza Vaccine: May 10, 2019 Seasonal Allergies Seasonal Allergies: Yes Past Medical History Surgeries: Yes Appendectomy, Cardiac, Gallbladder, Hysterectomy, Tonsillectomy Respiratory: Yes (BRONCHITIS) Currently Using CPAP: No Currently Using BIPAP: No Cardiac: Yes Coronary Artery Disease, Heart Attack, High Cholesterol, Hypertension Neurological: Yes (2017--HEMORRHAGIC CVA) Stroke Reproductive Disorders: No 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 PT REFUSED EGD.) Gastrointestinal Bleed Musculoskeletal: No Endocrine: No HEENT: No Cancer: No Psychosocial: No Integumentary: No Blood Disorders: No Family Medical History Reviewed Nursing Family Hx Congenital heart disease 19 FATHER G8 BROTHER FH: breast cancer G8 SISTER Review of Systems Time Seen by Provider: 05:06 Sepsis Event Evaluation Height, Weight, BMI Height: 5'5.00" Weight: 119lbs. 9.0oz. 54.921083eb; 22.00 BMI Method:Stated Exam Exam Vital Signs Date Time Temp Pulse Resp B/P (MAP) Pulse Ox O2 Delivery O2 Flow Rate FiO2 12/28/19 04:00 76 154/75 (101) 98 Room Air 12/28/19 03:54 36.8 12/28/19 03:52 97 Room Air 12/28/19 03:00 73 149/79 (102) 95 Room Air 12/28/19 02:00 74 150/73 (98) 95 Room Air 12/28/19 01:00 74 165/75 (105) 97 Room Air 12/28/19 01:00 74 12/28/19 00:15 36.8 12/28/19 00:00 71 153/76 (101) 95 Room Air 12/27/19 23:52 97 Room Air 12/27/19 23:00 85 161/76 (104) 97 Room Air 12/27/19 22:45 92 130/119 12/27/19 22:32 96 159/81 (107) 97 Room Air 12/27/19 22:03 96 Room Air 12/27/19 21:49 88 16 157/107 (124) 97 Room Air 12/27/19 21:30 89 21 129/90 (103) 98 Room Air 12/27/19 21:15 87 25 175/88 (117) 98 Room Air 12/27/19 21:00 88 24 181/88 (119) 97 Room Air 12/27/19 20:45 87 23 176/82 (113) 97 Room Air 12/27/19 20:30 84 25 186/94 (124) 97 Room Air 12/27/19 20:29 85 12/27/19 20:22 37.0 84 22 170/73 (105) 97 Room Air 12/27/19 19:53 86 16 180/89 98 Room Air 12/27/19 14:31 37.0 86 20 191/91 (124) 100 Room Air I & O 12/28/19 07:00 Output Total 400 ml Balance -400 ml Height & Weight Height: 5'5.00" Weight: 119lbs. 9.0oz. 54.172634bw; 22.00 BMI Method:Stated General Appearance: No Apparent Distress, WD/WN HEENT: PERRL/EOMI, Pharynx Normal Neck: Full Range of Motion, Non Tender, Supple Respiratory: Chest Non Tender, Lungs Clear, Normal Breath Sounds, No Accessory Muscle Use, No Respiratory Distress Cardiovascular: Regular Rate, Rhythm, No Edema, No Gallop Capillary Refill: Less Than 3 Seconds Gastrointestinal: normal bowel sounds, non tender, soft Extremity: Normal Capillary Refill, Normal Inspection, Normal Range of Motion, No Pedal Edema Neurologic/Psychiatric: Alert, Aphasia, Depressed Affect, Disoriented Skin: Normal Color, Warm/Dry Lymphatic: No Adenopathy Results Lab Laboratory Tests 12/27/19 14:20 12/28/19 02:45 Assessment/Plan Assessment/Plan s/p CVA -No TPA given -pt passed swallow eval -NIH is 6 was 14 on admission -ASA -PT/OT and speech HTN - Monitor IVETTE LYNCH DO Dec 28, 2019 05:06
[2019-12-28] MEDS: MAGNESIUM 1 GM/100 ML IVPB 100 ML IV SCH ×3 (05:26→09:09)
[2019-12-28] MEDS: POTASSIUM CL 10MEQ/50ML IVPB 50 ML IV SCH ×4 (05:26→09:09)
[2019-12-28] MEDS: niCARdipine 50 MG/NS 250 ML IV DRIP IV SCH ×2 (05:34)
[2019-12-28] MEDS ORDERED: POTASSIUM CL 10MEQ/50ML IVPB 50 ML IV SCH (06:00)
[2019-12-28] MEDS ORDERED: KCL 20 MEQ TAB (K-DUR) PO SCH (06:00)
[2019-12-28] MEDS ORDERED: MAGNESIUM 1 GM/100 ML IVPB 100 ML IV SCH (06:00)
--- NOTE | 2019-12-28 07:27 | Diagnostic Imaging Report ---
EXAMINATION: Chest 1 view HISTORY: Altered mental status. Follow-up. COMPARISON: Chest radiograph on 12/27/2019. FINDINGS: The lung volumes are hyperinflated. No focal consolidation is seen. No large pleural effusion or pneumothorax is seen. The cardiomediastinal silhouette is prominent. There is calcified aortic atherosclerotic plaque. No acute osseous abnormality is seen. IMPRESSION: 1. Cardiomegaly. No overt pulmonary edema. 2. Hyperinflated lungs, which can be seen with COPD. Dictated by: Dictated on workstation # [id number]
[2019-12-28] MEDS ORDERED: lisINopril 40 MG (PRINIVIL) TABLET PO SCH (09:00)
[2019-12-28] MEDS ORDERED: DOCUSATE SODIUM 100 MG (COLACE) CAP PO SCH (09:00)
[2019-12-28] MEDS: ASPIRIN E.C. 325 MG (ECOTRIN) TABLET PO SCH (09:49)
--- NOTE | 2019-12-28 09:54 | Physical Therapy Evaluation ---
PT Evaluation-General Medical Diagnosis Admission Date Dec 27, 2019 at 17:31 Medical Diagnosis: stroke symptoms Onset Date: Dec 27, 2019 Therapy Diagnosis Therapy Diagnosis: impaired mobility, strength, endurance, balance Height/Weight Height (Feet): 5 Height (Inches): 5.00 Weight (Pounds): 119 Weight (Ounces): 9.0 Precautions Precautions/Isolations: Fall Prevention, Standard Precautions Referral Physician: Richy Reason for Referral: Evaluation/Treatment Medical History Pertinent Medical History: CAD, COPD, CVA, HTN, [place] Additional Medical History Past Medical History Surgeries: Yes Appendectomy, Cardiac, Gallbladder, Hysterectomy, Tonsillectomy Respiratory: Yes (BRONCHITIS) Currently Using CPAP: No Currently Using BIPAP: No Cardiac: Yes Coronary Artery Disease, Heart Attack, High Cholesterol, Hypertension Neurological: Yes (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 PT REFUSED EGD.) Gastrointestinal Bleed Social History Current Living Status: Alone Patient seems unsure if she has any steps to get into her home or even if she li ves alone. She does state that she uses a rolling walker sometimes. Prior Prior Level of Function SCALE: Activities may be completed with or without assistive devices. 1-Lazzrkhzlu-tmhmszj completes the activity by him/herself with no assistance from a helper. 5-Set-up or Clean-up Assistance-helper sets up or cleans up; patient completes activity. [place] assists only prior to or following the activity. 4-Supervision or Touching Assistance-helper provides verbal cues and/or touching/steadying and/or contact guard assistance as patient completes activity. Assistance may be provided throughout the activity or intermittently. 3-Partial/Moderate Assistance-helper does LESS THAN HALF the effort. [place] li fts, holds or supports trunk or limbs, but provides less than half the effort. 2-Substantial/Maximal Assistance-helper does MORE THAN HALF the effort. [place] lifts or holds trunk or limbs and provides more than half the effort. 4-Dlwkwitvd-motgfr does ALL the effort. Patient does none of the effort to complete the activity. Or, the assistance of 2 or more helpers is required for the patient to complete the activity. If activity was not attempted, code reason: 7-Patient Refused. 9-Not Applicable-not attempted and the patient did not perform the activity before the current illness, exacerbation or injury. 10-Not Attempted due to Environmental Limitations-(lack of equipment, weather restraints, etc.). 88-Not Attempted due to Medical Conditions or Safety Concerns. unknown PT Evaluation-Current Subjective Patient in bed pre tx, agrees to PT, has no complaints of pain. Pt/Family Goals none stated Objective Patient Orientation: Person, Confused Attachments: Triana Catheter, IV ROM/Strength ROM Lower Extremities WNL Strength Lower Extremities patient cannot follow directions for MMT but she appears to have at least 3+/5 gross BLE Neuromuscular (Tone, Coordination, Reflexes) Patient has decreased tracking and peripheral vision on the right side Sensory Hearing: Functional Sensation Right Lower Extremit: Intact Sensation Left Lower Extremity: Intact Transfers Roll Left to Right (QC): 6 Lying to Sitting/Side of Bed(Q: 3 Sit to Stand (QC): 3 Chair/Gnk-il-Blkqn Xfer(QC): 3 supine to sit min assist, sit to stand and transfer mod assist, patient is retropulsive during standing and transfer, patient transferred into bedside chair Balance Sitting Static: Fair Sitting Dynamic: Poor Standing Static: Poor Standing Dynamic: Poor Treatment seated BLE exercises x15 (AP, LAQ) Assessment/Needs Patient has impaired mobility, strength, endurance, balance. Patient in bedside chair post tx with nurse call, phone, tray, chair alarm on, all needs met. Rehab Potential: Fair PT Half-Way Goals [place] [employer] [place] Manager Goals PT [employer] Manager Goals Time Frame: Jan 04, 2020 Roll Left & Right (QC): 6 Sit to Lying (QC): 6 Lying-Sitting on Side/Bed(QC): 6 Sit to Stand (QC): 4 Chair/Phu-ss-Xfhjb Xfer(QC): 4 Walk 10 feet (QC): 4 Walk 50ft with 2 Turns (QC): 4 PT Plan Problem List Problem List: Activity Tolerance, Functional Strength, Safety, Balance, Gait, Transfer, Bed Mobility Treatment/Plan Treatment Plan: Continue Plan of Care Treatment Plan: Bed Mobility, Education, Functional Activity Vijay, Functional Strength, Gait, Safety, Therapeutic Exercise, Transfers Treatment Duration: Jan 04, 2020 Frequency: 6 times per week Estimated Hrs Per Day: .25 hour per day Patient and/or Family Agrees t: Yes Safety Risks/Education Patient Education: Transfer Techniques, Correct Positioning, Safety Issues Teaching Recipient: Patient Teaching Methods: Demonstration, Discussion Response to Teaching: Reinforcement Needed Discharge Recommendations Plan Patient will perform bed mobility and transfer training, balance and endurance training, functional strengthening, stair training, gait training, and education, to improve functional mobility and independence at home. Therapy Discharge Recommendati: Home & Family Time/GCodes Time In: 927 Time Out: 944 Total Billed Treatment Time: 17 Total Billed Treatment 1 visit VIJI 17' TIFFANIE VERA PT Dec 28, 2019 09:54
--- NOTE | 2019-12-28 10:25 | NUR ---
PT REPORT GIVEN TO BARB ROBERSON. PT TRANSPORTED TO ROOM 421 AT THIS TIME WITH BELONGINGS
--- NOTE | 2019-12-28 10:40 | NUR ---
PATIENT ARRIVED TO ROOM FROM ICU. REPORT RECEIVED FROM DA ALAS. I AGREE WITH PREVIOUS RN'S ASSESSMENT. PATIENT SITTING UP IN RECLINER, ALL NEEDS MET AT THIS TIME, CALL LIGHT WITHIN REACH.
--- NOTE | 2019-12-28 10:54 | NUR ---
DR PINEDA NOTIFIED AT THIS TIME OF PATIENT BP OF 180/80. NO NEW ORDERS AT THIS TIME.
--- NOTE | 2019-12-28 11:07 | Occupational Therapy Eval ---
OT Evaluation-General/PLF Medical Diagnosis Admission Date Dec 27, 2019 at 17:31 Medical Diagnosis: stroke symptoms Onset Date: Dec 27, 2019 Therapy Diagnosis Therapy Diagnosis: impaired ADLs/functional mobility Height/Weight Height (Feet): 5 Height (Inches): 5.00 Weight (Pounds): 119 Weight (Ounces): 9.0 Precautions Precautions/Isolations: Fall Prevention, Standard Precautions Referral Physician: Richy Referral Reason: Evaluation/Treatment Medical History Pertinent Medical History: CAD, COPD, CVA, HTN, [place] Additional Medical History Surgeries: Yes Appendectomy, Cardiac, Gallbladder, Hysterectomy, Tonsillectomy Respiratory: Yes (BRONCHITIS) Currently Using CPAP: No Currently Using BIPAP: No Cardiac: Yes Coronary Artery Disease, Heart Attack, High Cholesterol, Hypertension Neurological: Yes (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 PT REFUSED EGD.) Gastrointestinal Bleed Current History Pt presented to ED secondary to acute MS changes, aphasia, stroke symptoms. CT showed subacute stoke. Reviewed History: Yes Social History Home: Single Level Current Living Status: Alone Pt able to recall that she lives alone in a one story house. When asked if she has any steps to get into her house pt responded "I think so" but unable to recall how many. ADL-Prior Level of Function SCALE: Activities may be completed with or without assistive devices. 4-Cfjzgnwxcd-jymxhop completes the activity by him/herself with no assistance from a helper. 5-Set-up or Clean-up Assistance-helper sets up or cleans up; patient completes activity. [place] assists only prior to or following the activity. 4-Supervision or Touching Assistance-helper provides verbal cues and/or touching/steadying and/or contact guard assistance as patient completes activity. Assistance may be provided throughout the activity or intermittently. 3-Partial/Moderate Assistance-helper does LESS THAN HALF the effort. [place] lifts, holds or supports trunk or limbs, but provides less than half the effort. 2-Substantial/Maximal Assistance-helper does MORE THAN HALF the effort. [place] lifts or holds trunk or limbs and provides more than half the effort. 4-Frjlwfats-kbbhdf does ALL the effort. Patient does none of the effort to complete the activity. Or, the assistance of 2 or more helpers is required for the patient to complete the activity. If activity was not attempted, code reason: 7-Patient Refused. 9-Not Applicable-not attempted and the patient did not perform the activity before the current illness, exacerbation or injury. 10-Not Attempted due to Environmental Limitations-(lack of equipment, weather restraints, etc.). 88-Not Attempted due to Medical Conditions or Safety Concerns. ADL PLOF Comments Pt reports she lives alone and she believes she was able to complete all ADLs without assistance. Pt unable to recall if she used AD for functional mobility. PLOF is unknown at this time due to pt being poor historian. Self Care: Unknown Functional Cognition: Unknown DME/Equipment Comments pt unable to recall OT Current Status Subjective Pt seated in recliner, agreeable to OT evaluation. Mental Status/Objective Patient Orientation: Person, Time Attachments: Triana Catheter, IV Current Glasses/Contacts: Yes Dentures/Partials: No Hand Dominance: Right Upper Extremity ROM BUE shoulder flexion to approx 100 degrees Upper Extremity Coordination increased time and instruction for thumb opposition to each finger Upper Extremity Sensation pt denies tingling/numbness BUEs Upper Extremity Strength Pt unable to follow instruction for MMT, pt able to make a fist to squeeze OT's finger. PT had equal strength BUE for gross grasp ADL-Treatment Eating (QC): 4 (OT asked pt to cut her toast, pt proceeded to use fork to warehouse order picker a pice of toast that was already cut. With verbal cues pt was then able to bring food to her mouth and eat piece of toast.) Other Treatments Pt seated in recliner. OT educated pt on the purpose and benefits of OT, she verbalized understanding. Pt then attempted to provide information about PLOF and home set up, but these remain unknown due to pt being a poor historian. Pt then instructed to cut food, she instead used her fork to warehouse order picker a piece of food that was already cut. With verbal cues, pt was able to bring food to mouth and eat a bite of food. Post OT session, pt seated in recliner, call light in reach and all needs met. Aide present stating pt is transferring to 4th floor. Education OT Patient Education: Correct positioning, Energy conservation, Modified ADL t echniques, Progress toward Goal/Update tx plan, Purpose of tx/functional activities, Rehab process Teaching Recipient: Patient Teaching Methods: Discussion Response to Teaching: Verbalize Understanding OT Retirement Goals Clamper Goals Time Frame: Jan 06, 2020 Eating (QC): 6 Oral Hygiene (QC): 6 Toileting Hygiene (QC): 4 Shower/Bathe Self (QC): 4 Upper Body Dressing (QC): 5 Lower Body Dressing (QC): 4 On/Off Footwear (QC): 4 1=Demonstrate adherence to instructed precautions during ADL tasks. 2=Patient will verbalize/demonstrate understanding of assistive devices/modifications for ADL. 3=Patient will improve strength/tolerance for activity to enable patient to perform ADL's. OT Education/Plan Problem List/Assessment Assessment: Decreased Activ Tolerance, Decreased UE Strength, Impaired Cognition, Impaired Funct Balance, Impaired I ADL's, Impaired Self-Care Skills Discharge Recommendations Plan/Recommendations: Continue POC Therapy Discharge Recommendati: Home & Family Treatment Plan/Plan of Care Treatment,Training & Education: Yes Patient would benefit from OT for education, treatment and training to promote independence in ADL's, mobility, safety and/or upper extremity function for ADL's. Plan of Care: ADL Retraining, Functional Mobility, UE Funct Exercise/Act Treatment Duration: Jan 06, 2020 Frequency: 5 times per week Estimated Hrs Per Day: .25 hour per day Rehab Potential: Fair Time/GCodes Start Time: 10:05 Stop Time: 10:13 Total Time Billed (hr/min): 8 Billed Treatment Time 1, DIONICIO MCCRARY OT Dec 28, 2019 11:07
--- NOTE | 2019-12-28 11:40 | Consultation-Cardiology ---
HPI-Cardiology Cardiology Consultation Date of Consultation 12/28/19 Date of Admission Time Seen by Provider: 11:00 Indication: CVA HPI Patient is an 89 y/o female with hx of CAD, hemorrhagic CVA in 2017, COPD, HTN, HLP. Presented to the ER yesterday afternoon with stoke like sx of AMS and expressive aphasia. Was outside of window for TPA. Patient still having some aphasia. Denies any chest pain, dyspnea, or palpitations. Primary automotive service professional is Dr. Raya in [place]. Noted to have mildly elevated troponin. Home Medications & Allergies Allergies: Coded Allergies: No Known Drug Allergies (Unverified , 06/19/19) Home Medication List Reviewed: Yes VGH-Alxsli-Nsgbil Hx Patient Social History Employed/Student: retired Alcohol Use: Denies Use Recreational Drug Use: No Smoking Status: Never a Smoker 2nd Hand Smoke Exposure: No Recent Foreign Travel: No Recent Infectious Disease Expo: No Recent Hopitalizations: No Immunizations Up To Date Tetanus Booster (TDap): More than 5yrs Date of Pneumonia Vaccine: Apr 19, 2016 Date of Influenza Vaccine: May 10, 2019 Past Medical History CAD, HTN, HLP, COPD, Hemorrhagic CVA Family Medical History Significant Family History: No Pertinent Family Hx Family History: Congenital heart disease 19 FATHER G8 BROTHER FH: breast cancer G8 SISTER Review of Systems-General Review of Systems Constitutional: no symptoms reported; No chills, No diaphoresis, No dizziness, No fever, No malaise EENTM: see HPI; No blurred vision, No double vision Respiratory: no symptoms reported Cardiovascular: no symptoms reported, see HPI; No chest pain, No edema, No palpitations, No syncope Gastrointestinal: No abdominal pain, No constipation : No Musculoskeletal: no symptoms reported Skin: no symptoms reported Psychiatric/Neurological: Weakness, Other (aphasia) Reviewed Test Results Reviewed Test Results Lab Laboratory Tests 12/27/19 14:20: White Blood Count 13.4H, Red Blood Count 4.89, Hemoglobin 13.9, Hematocrit 42, Mean Corpuscular Volume 86, Mean Corpuscular Hemoglobin 28, Mean Corpuscular Hemoglobin Concent 33, Red Cell Distribution Width 13.7, Platelet Count 194, Mean Platelet Volume 12.4H, Neutrophils (%) (Auto) 81H, Lymphocytes (%) (Auto) 11L, Monocytes (%) (Auto) 8, Eosinophils (%) (Auto) 0, Basophils (%) (Auto) 0, Neutrophils # (Auto) 10.9H, Lymphocytes # (Auto) 1.5, Monocytes # (Auto) 1.1H, Eosinophils # (Auto) 0.0, Basophils # (Auto) 0.0, Sodium Level 138, Potassium Level 4.2, Chloride Level 103, Carbon Dioxide Level 21, Anion Gap 14, Blood Urea Nitrogen 16, Creatinine 1.06, Estimat Glomerular Filtration Rate 49, BUN/Creatinine Ratio 15, Glucose Level 116H, Calcium Level 10.0, Corrected Calcium 9.7, Total Bilirubin 0.7, Aspartate Amino Transf (AST/SGOT) 37H, Alanine Aminotransferase (ALT/SGPT) 19, Alkaline Phosphatase 104, Troponin I 0.060H, Total Protein 7.5, Albumin 4.4 12/27/19 14:43: Glucometer 114H 12/27/19 15:05: Urine Color YELLOW, Urine Clarity CLEAR, Urine pH 6.5, Urine Specific Clint 1.015L, Urine Protein TRACEH, Urine Glucose (UA) NEGATIVE, Urine Ketones 1+H, Urine Nitrite NEGATIVE, Urine Bilirubin NEGATIVE, Urine Urobilinogen 0.2, Urine Leukocyte Esterase NEGATIVE, Urine RBC (Auto) NEGATIVE, Urine RBC NONE, Urine WBC NONE, Urine Squamous Epithelial Cells RARE, Urine Crystals NONE, Urine Bacteria NEGATIVE, Urine Casts PRESENT, Urine Hyaline Casts RARE, Urine Mucus SMALLH, Urine Culture Indicated NO 12/27/19 15:41: Prothrombin Time 13.3, INR Comment 1.0, Activated Partial Thromboplast Time 29, D-Dimer 1.58H 12/28/19 02:45: White Blood Count 13.7H, Red Blood Count 4.48, Hemoglobin 12.8, Hematocrit 39, Mean Corpuscular Volume 86, Mean Corpuscular Hemoglobin 29, Mean Corpuscular Hemoglobin Concent 33, Red Cell Distribution Width 13.7, Platelet Count 170, Mean Platelet Volume 11.6H, Neutrophils (%) (Auto) 75, Lymphocytes (%) (Auto) 17, Monocytes (%) (Auto) 9, Eosinophils (%) (Auto) 0, Basophils (%) (Auto) 0, Neutrophils # (Auto) 10.2H, Lymphocytes # (Auto) 2.3, Monocytes # (Auto) 1.2H, Eosinophils # (Auto) 0.0, Basophils # (Auto) 0.0, Sodium Level 138, Potassium Level 3.5L, Chloride Level 105, Carbon Dioxide Level 21, Anion Gap 12, Blood Urea Nitrogen 12, Creatinine 0.88, Estimat Glomerular Filtration Rate > 60, BUN/Creatinine Ratio 14, Glucose Level 106H, Calcium Level 9.2, Corrected Calcium 9.4, Phosphorus Level 3.2, Magnesium Level 1.3L, Total Bilirubin 0.8, Aspartate Amino Transf (AST/SGOT) 25, Alanine Aminotransferase (ALT/SGPT) 14, Alkaline Phosphatase 90, Total Protein 6.2L, Albumin 3.8, Triglycerides Level 90, Cholesterol Level 160, LDL Cholesterol Direct 91, VLDL Cholesterol 18, HDL Cholesterol 52 12/28/19 11:20: Physical Exam Physical Exam Vital Signs Vital Signs - First Documented 12/27/19 14:31 Temp 37.0 Pulse 86 Resp 20 B/P (MAP) 191/91 (124) Pulse Ox 100 O2 Delivery Room Air Capillary Refill : Less Than 3 Seconds Height, Weight, BMI Height: 5'5.00" Weight: 119lbs. 9.0oz. [id number]; 22.00 BMI Method:Stated General Appearance: No Apparent Distress, WD/WN HEENT: PERRL/EOMI, Pharynx Normal Neck: Full Range of Motion, Non Tender, Supple Respiratory: Chest Non Tender, Lungs Clear, Normal Breath Sounds, No Accessory Muscle Use, No Respiratory Distress Cardiovascular: Regular Rate, Rhythm, No Edema, No Gallop Gastrointestinal: Non Tender, Soft Back: No CVA Tenderness Extremity: Normal Capillary Refill, Normal Inspection, Normal Range of Motion, No Pedal Edema Neurologic/Psychiatric: Alert, Aphasia, Depressed Affect Skin: Normal Color, Warm/Dry Lymphatic: No Adenopathy A/P-Cardiology Admission Diagnosis CVA CAD HTN HLP Assessment/Plan 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 Was outside of window to receive TPA. I will continue on telemetry. Mildly elevated troponin- I will reevaluate troponin. CAD- reported hx of angioplasty over 20 years ago per previous notes that were reviewed. Primary automotive service professional is Dr. Raya in [place]. I will try to obtain records for further review. HTN- mildly elevated, continue to monitor HLP, evaluate lipid profile. COPD Thank you for allowing us to participate in the management of Ms. [place]. This is Franca Gold PA-C, as a scribe for Dr. Caballero. Patient was seen and evaluated with Franca, examination performed, management plan was discussed, agree with the current scribed note, I made few changes to the note using Italic font 89-year-old lady admitted with expressive aphasia, has been on aspirin. Did not receive TPA. Has history of intracranial bleed. Had mildly elevated troponin. History of coronary artery disease and angioplasty done over 20 years ago. Currently denied any chest pain. No palpitation, blood pressure is poorly controlled. On my examination patient was still having expressive aphasia. Continue on current medication I increased lisinopril, continue on atenolol and Dr. Page has added hydralazine. Monitor blood pressure Mildly elevated troponin, no acute EKG changes. Trending down. Denied any chest pain. Probably secondary to severe hypertension. Evaluate 2-D echo and repeat troponin in a.m. Clinical Quality Measures DVT/VTE Risk/Contraindication: Risk Factor Score Per Nursin RFS Level Per Nursing on Admit: 4+=Very High FRANCA PACK Dec 28, 2019 11:40 PASQUALE CABALLERO MD Dec 28, 2019 16:28
[2019-12-28] MEDS ORDERED: ACETAMINOPHEN 325 MG TABLET PO PRN (13:45)
[2019-12-28] MEDS ORDERED: hydrALAZINE (APESOLINE) 20 MG/ML VIAL IV PRN (13:45)
[2019-12-28] MEDS ORDERED: polyethylene glycoL POWDER 17 GM (MIRALAX) PACK PO PRN (13:45)
[2019-12-28] MEDS ORDERED: MELATONIN 3 MG TABLET PO PRN (13:45)
[2019-12-28] MEDS ORDERED: ONDANSETRON 4 MG (ZOFRAN) ORAL DISSOLVE TAB PO PRN (13:45)
[2019-12-28] MEDS ORDERED: BISACODYL 10 MG SUPP (DULCOLAX) PR PRN (13:45)
[2019-12-28] MEDS ORDERED: ANTACID SUSP 30 ML UDC (MYLANTA) PO PRN (13:45)
[2019-12-28] MEDS ORDERED: ONDANSETRON 4 MG/2 ML (SDV) Z0FRAN IV PRN (13:45)
--- NOTE | 2019-12-28 14:34 | ST Cognitive Linguistic Eval ---
Speech Evaluation-General Medical Diagnosis stroke symptoms Onset Date: Dec 27, 2019 Therapy Diagnosis Therapy Diagnosis: Cognitive-communication Referral Referring Physician: Dr. Lockhart Medical History Pertinent Medical History: CAD, COPD, CVA, HTN, [place] Reviewed History: Yes Social History Current Living Status: Alone Speech PLF-Current Status Prior Level of Function Patient lived at home alone where she was independent for much of her daily needs. She also receives assistance from neighbors. Subjective Patient was pleasant and cooperative with the cognitive assessment. Language Eval: Auditory Comprehends Simple Yes/No Ques: Functional Indent/Objects Multiple [place]: Functional Ident/Pics in Multiple [place]: Mild Follows 1-Step Commands: Functional Follows Complex Directions: Mild Follows General Conversations: Mild Language Eval: Verbal Language Completes Spontaneous Greeting: Functional Produces Auto, Serial Info: Functional Imitates Simple Words/Phrases: Mild Word Finding: Mild Requests Basic Needs: Mild States Basic Personal Info: Mild Expresses Complex Ideas: Moderate Objective Cognitive Domain Attention: WNL Memory: Moderate Problem Solving: Moderate Executive Functions: Moderate Visuospatial Skills: Moderate Composite Severity Rating: Moderate Clock Drawing Severity Rating: Moderate Objective Formal/Standardized Tests [facility] Mental Status (UMS) Results 16/30, Moderate dementia range of function Oral Motor/Speech Production Intelligible for speech Impression Patient is a pleasant 89 y/o female who was brought to the ED via [facility] due to stroke like symptoms. Patient was given the SLUMS at bedside as well as informal speech tasks. Patient scored 18/30 with cognitive deficits noted in the moderate dementia range of function. Patient is noted to have some expressive aphasia, however appears to have resolved from initial assessment. Patient will receive skilled ST services for improving cognitive status for safe discharge. Speech Short Term Goals Short Term Goals Short Term Goals 1) Patient will complete speech tasks related to her daily needs at 80% or greater with minimal cues. 2) Patient will complete safety awareness tasks related to her daily needs at 80% or greater with minimal cues. 3) Patient will complete speech problem solving related to her daily needs at 80% or greater with minimal cues. Speech Nursing Home Goals Commercial Decorator Goals Patient will improve cognitive-communication necessary for safety and daily living tasks with minimal assist. Speech-Plan Patient/Family Goals Patient/Family Goals: Patient plans on returning to her home where she lived alone, however this may not be the safest situation upon discharge. Treatment Plan Speech Therapy Treatment Plan: Continue Plan of Care Treatment Duration: Jan 06, 2020 Frequency: 4 times per week Estimated Hrs Per Day: .25 hour per day Rehab Potential: Fair Barriers to Learning: Patient's age and recent medical status Pt/Family Agrees to Plan: Yes Safety Risks/Education Teaching Recipient: Patient Teaching Methods: Discussion Response to Teaching: Verbalize Understanding Education Topics Provided: Safety within her room, utilization of the call light as needed Time Speech Therapy Time In: 10:15 Speech Therapy Time Out: 10:30 Total Billed Time: 15 Billed Treatment Time 1JOEY BETHANIA ST Dec 28, 2019 14:34
[2019-12-28] MEDS: hydrALAZINE (APRESOLINE) 25 MG TAB PO SCH ×2 (14:49→22:31)
--- NOTE | 2019-12-28 15:21 | History & Physical-Hospitalist ---
History of Present Illness HPI/Chief Complaint Nathaly Scherer is an 89-year-old female with past medical history of hypertension, hyperlipidemia, coronary artery disease, history of hemorrhagic stroke, COPD, who presented with altered mental status and expressive aphasia. A neighbor reportedly spoke with her but did not see her yesterday morning around 1115 when she dropped off her mail. She was later found by the same neighbors and was altered and had difficulty speaking. There was no focal weakness. This morning she remains very confused and is oriented to self and year, but not place or month. She continues to have some slurred speech. She denies any pain. She denies any fevers or chills. She denies any shortness of breath or cough. She denies any abdominal pain, nausea, vomiting or diarrhea. She has no other complaints or concerns. Source: patient Exam Limitations: no limitations Date Seen 12/28/19 Time Seen by a Provider: 09:05 Attending Physician Fran Pineda MD PCP Sandoval Penn MD Referring Physician Date of Admission Dec 27, 2019 at 17:31 Home Medications & Allergies Home Medications Reviewed patient Home Medication Reconciliation performed by pharmacy medication reconciliations wind technician and/or nursing. Patients Allergies have been reviewed. Allergies Allergies Coded Allergies No Known Drug Allergies (Iafuhbbkfm76/1/19) Past Drafbuj-Uslycv-Wyofst Hx Past Med/Social Hx: Reviewed Nursing Past Med/Soc Hx Patient Social History Employed/Student: retired Alcohol Use: Denies Use Recreational Drug Use: No Smoking Status: Never a Smoker 2nd Hand Smoke Exposure: No Recent Foreign Travel: No Contact w/other who traveled: No Recent Hopitalizations: No Recent Infectious Disease Expo: No Immunizations Up To Date Tetanus Booster (TDap): More than 5yrs Pediatric: Yes Date of Pneumonia Vaccine: Apr 19, 2016 Date of Influenza Vaccine: May 10, 2019 Seasonal Allergies Seasonal Allergies: Yes Past Medical History Surgeries: Appendectomy, Cardiac, Gallbladder, Hysterectomy, Tonsillectomy Currently Using CPAP: No Currently Using BIPAP: No Cardiac: Coronary Artery Disease, Heart Attack, High Cholesterol, Hypertension Neurological: Stroke Reproductive: No Hysterectomy Gastrointestinal: Gastrointestinal Bleed History of Blood Disorders: No Family History Reviewed Nursing Family Hx Congenital heart disease 19 FATHER G8 BROTHER FH: breast cancer G8 SISTER No Pertinent Family Hx Review of Systems Constitutional: no symptoms reported EENTM: no symptoms reported Respiratory: no symptoms reported Cardiovascular: no symptoms reported Gastrointestinal: no symptoms reported Genitourinary: no symptoms reported Musculoskeletal: no symptoms reported Skin: no symptoms reported Psychiatric/Neurological: Other (Aphasia) Physical Exam Physical Exam Vital Signs Vital Signs - First Documented 12/27/19 14:31 Temp 37.0 Pulse 86 Resp 20 B/P (MAP) 191/91 (124) Pulse Ox 100 O2 Delivery Room Air Capillary Refill : Less Than 3 Seconds Height, Weight, BMI Height: 5'5.00" Weight: 119lbs. 9.0oz. 54.090500to; 22.00 BMI Method:Stated General Appearance: No Apparent Distress, WD/WN HEENT: Other (Right pupil dilated and minimally reactive, left pupil round and reactive) Neck: Normal Inspection, Supple Respiratory: Lungs Clear, Normal Breath Sounds, No Respiratory Distress Cardiovascular: Regular Rate, Rhythm, No Edema, No Murmur Gastrointestinal: Normal Bowel Sounds, Non Tender, Soft Extremity: Normal Inspection, Non Tender, No Pedal Edema Neurologic/Psychiatric: Alert, No Motor/Sensory Deficits, Normal Mood/Affect, Aphasia, Disoriented; No Facial Droop, No Motor Weakness Skin: Normal Color, Warm/Dry Results Results/Procedures Labs Laboratory Tests 12/27/19 14:20 12/28/19 02:45 Patient resulted labs reviewed. Imaging: Reviewed Imaging Report Assessment/Plan Admission Diagnosis Acute ischemic stroke Admission Status: Inpatient Order (span 2 midnights) Reason for Inpatient Admission: Stroke requiring further evaluation and treatment Assessment and Plan Acute ischemic stroke Symptoms consistent with acute ischemic stroke CT head with hypodensity adjacent to the right ventricle CTA showed no significant abnormality Not a candidate for TPA Started on aspirin and statin Monitor on telemetry Obtain MRI PT/OT/ST consulted Elevated troponin CAD Troponin elevated at 0.06, likely due to acute stroke Cardiology consulted, appreciate assistance Hypertension Continue lisinopril and atenolol Add hydralazine IV hydralazine as needed Hypokalemia Hypomagnesemia Continue to monitor and replace as needed Hyperlipidemia Transition to Lipitor COPD without acute exacerbation Clinically significant, no acute management needs History of hemorrhagic stroke Clinically significant, no acute management needs DVT prophylaxis: SCDs, reevaluate pharmacologic prophylaxis following MRI Diagnosis/Problems Diagnosis/Problems (1) Acute ischemic stroke Status: Acute (2) Elevated troponin Status: Acute (3) Electrolyte abnormality Status: Acute (4) HTN (hypertension) Status: Acute Qualifiers: Hypertension type: essential hypertension Qualified Codes: I10 - Essential (primary) hypertension (5) HLD (hyperlipidemia) Status: Chronic (6) CAD (coronary artery disease) Status: Chronic (7) COPD without exacerbation Status: Chronic (8) History of stroke Status: Chronic Clinical Quality Measures DVT/VTE Risk/Contraindication: Risk Factor Score Per Nursin RFS Level Per Nursing on Admit: 4+=Very High FRAN PINEDA MD Dec 28, 2019 15:21
[2019-12-28] MEDS ORDERED: lisINopril 10 MG (PRINIVIL) TABLET PO NR (15:45)
[2019-12-28] MEDS ORDERED: GADOBUTROL 7.5 MMOL/7.5 ML (GADAVIST) VIAL IV ONE (16:30)
--- NOTE | 2019-12-28 17:28 | Diagnostic Imaging Report ---
PROCEDURE: MR imaging of the brain with and without contrast. TECHNIQUE: Multiplanar, multisequence MR imaging of the brain was performed with and without contrast. INDICATION: STROKE. Speaking difficulties. COMPARISON: CTA head and neck 12/27/2019. FINDINGS: Confluent regions of restricted water diffusion in the posterior left parahippocampal gyrus and left occipital lobe. There is also cortical restricted water diffusion in the left frontal lobe and left insula including the left frontal operculum. Postcontrast images are markedly limited by motion. No definite contrast enhancement is seen in these regions of infarction. Ezpjabml-ta-hbkdkllp additional nonspecific T2 hyperintensities in the periventricular and subcortical white matter. Duchfbsa-hs-odsfmuiz generalized parenchymal volume loss. No hydrocephalus or extra-axial fluid collection. No hemosiderin deposition. Normal intracranial flow voids. Postoperative changes in the globes and paranasal sinuses. The mastoids are clear. Bone marrow signal is unremarkable. IMPRESSION: Large regions of jxqbd-gm-iqyfoezr infarction involving the left SIEBEL CRM DEVELOPER distribution and left MCA distribution. These regions include the left frontal operculum which would account for the reported speech difficulties. The postcontrast imaging is markedly limited by motion. Report was called to patient's nurse, Lucy, at [facility] at 6:44 p.m., by tierra (for NK). Dictated by: Dictated on workstation # [id number]
[2019-12-28] MEDS ORDERED: ASPIRIN 300 MG (5 GR) SUPPOSITORY PR SCH (20:19)
[2019-12-28] MEDS: DOCUSATE SODIUM 100 MG (COLACE) CAP PO SCH (20:43)
[2019-12-28] MEDS: SENNOSIDES 8.6 MG (SENOKOT) TAB PO SCH (20:43)
[2019-12-28] MEDS ORDERED: ATENOLOL 50 MG (TENORMIN) TAB PO SCH (21:00)
[2019-12-29 00:45] VITALS: BP 148/84
[2019-12-29] MEDS: NS IV 1000 ML 1,000 ML IV SCH ×2 (01:03→06:13)
[2019-12-29 04:20] VITALS: BP 165/77
[2019-12-29] MEDS: hydrALAZINE (APRESOLINE) 25 MG TAB PO SCH (06:13)
[2019-12-29 07:30] LABS: BASOPHILS % (AUTO) 0 % (0-10); EOSINOPHILS # (AUTO) 0.2 10^3/uL (0.0-0.3); EOSINOPHILS % (AUTO) 2 % (0-10); HEMATOCRIT 38 % (35-52); HEMOGLOBIN 12.4 G/DL (11.5-16.0); LYMPHOCYTES # (AUTO) 2.4 X 10^3 (1.0-4.0); LYMPHOCYTES % (AUTO) 22 % (12-44); MEAN CORPUSCULAR HEMOGLOBIN 28 PG (25-34); MEAN CORPUSCULAR HGB CONC 33 G/DL (32-36); MEAN CORPUSCULAR VOLUME 86 FL (80-99); MONOCYTES % (AUTO) 9 % (0-12); NEUTROPHILS # (AUTO) 7.5 X 10^3 (1.8-7.8); NEUTROPHILS % (AUTO) 68 % (42-75); PLATELET COUNT 169 10^3/uL (130-400); RED CELL DISTRIBUTION WIDTH 13.8 % (10.0-14.5)
[2019-12-29 07:32] VITALS: BP 171/72
[2019-12-29 07:51] LABS: BUN/CREATININE RATIO 12; CALCIUM 8.6 MG/DL (8.5-10.1); CARBON DIOXIDE 17 MMOL/L (21-32); CHLORIDE 107 MMOL/L (98-107); CREATININE SERUM 0.82 MG/DL (0.60-1.30); GFR ESTIMATED > 60; GLUCOSE 89 MG/DL (70-105); MAGNESIUM 1.7 MG/DL (1.6-2.4); PHOSPHORUS 2.6 MG/DL (2.3-4.7); POTASSIUM 3.9 MMOL/L (3.6-5.0); SODIUM 136 MMOL/L (135-145)
[2019-12-29] MEDS: DOCUSATE SODIUM 100 MG (COLACE) CAP PO SCH (08:28)
[2019-12-29] MEDS: SENNOSIDES 8.6 MG (SENOKOT) TAB PO SCH (08:28)
[2019-12-29] MEDS: ASPIRIN E.C. 325 MG (ECOTRIN) TABLET PO SCH (08:28)
[2019-12-29] MEDS ORDERED: ENOXAPARIN 40 MG/0.4 ML (LOVENOX) SYR SC SCH (08:30)
--- NOTE | 2019-12-29 08:45 | NUR ---
IRF Evaluation Order received to evaluate patient for the ARU. Chart review complete and findings discussed with Dr. Corrales - patient accepted. Met with patient to discuss details related to rehabilitation program. Patient is agreeable to admission and required therapy regimen. Anticipate admission, 12/29/19. Thank you for this referral.
--- NOTE | 2019-12-29 08:52 | Cardiology Progress Note ---
Subjective Date Seen by Provider: Dec 29, 2019 Time Seen by Provider: 08:50 Subjective/Events-last exam Patient is laying down in bed, speech is better, feeling better. Review of Systems General: No Chills, No Night Sweats, No Fatigue, No Malaise, No Appetite, No Other HEENT: No Head Aches, No Visual Changes, No Eye Pain, No Ear Pain, No Dysphasia, No Sinus Congestion, No Post Nasal Drip, No Sore Throat, No Other Pulmonary: No Dyspnea, No Cough, No Pleuritic Chest Pain, No Other Cardiovascular: No: Chest Pain, Palpitations, Orthopnea, Paroxysmal Noc. Dyspnea, Edema, Lt Headedness, Other Objective-Cardiology Exam Last Set of Vital Signs Vital Signs 12/29/19 07:32 Temp 37.0 Pulse 77 Resp 16 B/P (MAP) 171/72 (105) Pulse Ox 95 O2 Delivery Room Air Capillary Refill : Less Than 3 Seconds I&O Intake and Output 12/29/19 00:00 Intake Total 625 ml Output Total 1425 ml Balance -800 ml Intake Oral 375 ml IV Total 250 ml Output Urine Total 1425 ml General: Alert, Oriented X3, Cooperative HEENT: Atraumatic, PERRLA Neck: Supple, No JVD, No Thyromegaly Lungs: Clear to Auscultation, Normal Air Movement Heart: Regular Rate, Normal S1, Normal S2, No Murmurs Abdomen: Normal Bowel Sounds, Soft, No Tenderness, No Hepatosplenomegaly, No Masses Extremities: No Clubbing, No Cyanosis, No Edema, Normal Pulses, No Tenderness/Swelling Skin: No Rashes, No Breakdown, No Significant Lesion Neuro: Normal Tone, Sensation Intact, Other (speech is better) Psych/Mental Status: Mental Status NL, Mood NL Results Lab Laboratory Tests 12/29/19 06:55 A/P-Cardiology Admission Diagnosis CVA CAD HTN HLP Assessment/Plan 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 Was outside of window to receive TPA. Improving. Continue to monitor Mild elevation in troponin, no acute EKG changes. Conservative management, continue on aspirin, probably type II SC. CAD- reported hx of angioplasty over 20 years ago per previous notes that were reviewed. Primary corporate director of human resources is Dr. Raya in [place]. I will try to obtain records for further review. Hypertension, poorly controlled. I adjusted her medication I will evaluate her response after taking the morning meds HLP, evaluate lipid profile. COPD Clinical Quality Measures DVT/VTE Risk/Contraindication: Risk Factor Score Per Nursin RFS Level Per Nursing on Admit: 4+=Very High PASQUALE TO MD Dec 29, 2019 08:52
[2019-12-29] MEDS ORDERED: lisINopril 20 MG (PRINIVIL) TABLET PO SCH (09:00)
[2019-12-29 09:59] VITALS: BP 171/72
--- NOTE | 2019-12-29 10:12 | NUR ---
CALLED REPORT TO ANDRES ALBERTO RN
--- NOTE | 2019-12-29 11:13 | Discharge Summary ---
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 Status: Acute (10) Acute ischemic left MCA stroke Status: Acute Hospital Course Date of Admission: Dec 27, 2019 at 17:31 Admission Diagnosis : Acute ischemic stroke Family Physician/Provider: Jay Jay Thompson MD Date of Discharge: 12/29/19 Discharge Diagnosis: Acute ischemic stroke of the left MCA and GAS DISTRIBUTION SUPERVISOR Hospital Course: Nathaly Scherer is an 89-year-old female with past medical history of hypertension, hyperlipidemia, coronary artery disease, history of hemorrhagic stroke, COPD, who presented with altered mental status and expressive aphasia and was admitted with acute ischemic stroke of the left MCA and 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 Her initial CT scan did not show any clear evidence of acute stroke. She underwent a CTA which was unrevealing. She was not a candidate for TPA. She was started on aspirin and high intensity statin. She underwent an MRI rain which showed a acutesubacute stroke of the left MCA and GAS DISTRIBUTION SUPERVISOR territories. She was transferred to inpatient rehabilitation for ongoing therapies. Labs and Pending Lab Test: Laboratory Tests 12/28/19 11:20: Troponin I 0.054H 12/29/19 06:55: White Blood Count 11.0, Red Blood Count 4.37, Hemoglobin 12.4, Hematocrit 38, Mean Corpuscular Volume 86, Mean Corpuscular Hemoglobin 28, Mean Corpuscular Hemoglobin Concent 33, Red Cell Distribution Width 13.8, Platelet Count 169, Mean Platelet Volume 12.0H, Neutrophils (%) (Auto) 68, Lymphocytes (%) (Auto) 22, Monocytes (%) (Auto) 9, Eosinophils (%) (Auto) 2, Basophils (%) (Auto) 0, Neutrophils # (Auto) 7.5, Lymphocytes # (Auto) 2.4, Monocytes # (Auto) 1.0, Eosinophils # (Auto) 0.2, Basophils # (Auto) 0.0, Sodium Level 136, Potassium Level 3.9, Chloride Level 107, Carbon Dioxide Level 17L, Anion Gap 12, Blood Urea Nitrogen 10, Creatinine 0.82, Estimat Glomerular Filtration Rate > 60, BUN/Creatinine Ratio 12, Glucose Level 89, Calcium Level 8.6, Phosphorus Level 2.6, Magnesium Level 1.7 Microbiology 12/27/19 MRSA Screen - Final, Complete MRSA not isolated Home Meds Active Proair Respiclick (Albuterol Sulfate) 90 Mcg Aer.pow.ba 1-2 Puff IH Q4H PRN Reported Potassium Chloride 10 Meq Tab.er.prt 10 Meq PO DAILY UNKNOWN LAST FILLED DATE, STATES SHE USES HER HUSBANDS SUPPLY [Nasal Rinse] NS QID PRN MIXES PER DR. OSHEA: 1 TBSP BAKING SODA 1/4 TSP SALT 1 CUP WARM WATER SQUIRTS IN EACH NOSTRIL WITH SYRINGE 4X DAILY NEEDED Lumigan (Bimatoprost) 2.5 Ml Drops 1 Drop OD HS Sucralfate 1 Gm Tablet 1 Gm PO ACHS Cetirizine HCl 10 Mg Tablet 10 Mg PO HS Montelukast Sodium 10 Mg Tablet 10 Mg PO HS LAST FILLED 07-28-2019 #90 Preservision Areds 2 Softgel (Vit C/E/Zn/Coppr/Lutein/Zeaxan) 1 Each Capsule 1 Cap PO BID Combivent Respimat Inhal [place] (Albuterol/Ipratropium) 4 Gm Aero 1 Puff IH Q6H PRN Flonase Allergy Relief (Fluticasone Propionate) 9.9 Ml [place].susp 1 [place] NS DAILY PRN Pantoprazole Sodium 40 Mg Tablet. 40 Mg PO DAILY LAST FILLED 08-12-2019 #90 Aspir 81 (Aspirin) 81 Mg Tablet.dr 81 Mg PO HS Lisinopril 10 Mg Tablet 10 Mg PO HS Advair 250-50 Diskus (Fluticasone/Salmeterol) 1 Each Blst.w.dev 1 Puff IH BID Simvastatin 40 Mg Tablet 40 Mg PO HS Atenolol 50 Mg Tablet 50 Mg PO HS Assessment/Pt Instructions Take medications as prescribed. Participate in therapies. Discharge Planning: <30 minutes discharge planning Discharge Instructions Discharge Diet: No Restrictions Activity as Tolerated: Yes Discharge Physical Examination Vital Signs Vital Signs Date Time Temp Pulse Resp B/P (MAP) Pulse Ox O2 Delivery O2 Flow Rate FiO2 12/29/19 09:59 37.0 77 16 171/72 95 Room Air General Appearance: No Apparent Distress, Chronically ill Respiratory: Lungs Clear, Normal Breath Sounds, No Respiratory Distress Cardiovascular: Regular Rate, Rhythm, No Edema, No Murmur Gastrointestinal: Normal Bowel Sounds, Non Tender, Soft Extremity: Normal Inspection, Non Tender, No Pedal Edema Skin: Normal Color, Warm/Dry Neurologic/Psychiatric: Alert, Normal Mood/Affect, Disoriented, Motor Weakness Allergies: Coded Allergies: No Known Drug Allergies (Unverified , 06/19/19) Copy Copies To 1: JAY JAY THOMPSON MD Discharge Summary Date of Admission Dec 27, 2019 at 17:31 Date of Discharge Dec 29, 2019 at 10:15 Discharge Date: Dec 29, 2019 Discharge Time: 10:15 Admission Diagnosis Acute ischemic stroke Consults/Procedures Consulations Cardiology Discharge Diagnosis Acute ischemic left GAS DISTRIBUTION SUPERVISOR and MCA stroke (1) Acute ischemic stroke Status: Acute (2) Elevated troponin Status: Acute (3) Electrolyte abnormality Status: Acute (4) HTN (hypertension) Status: Acute Qualifiers: Qualified Codes: I10 - Essential (primary) hypertension (5) HLD (hyperlipidemia) Status: Chronic (6) CAD (coronary artery disease) Status: Chronic (7) COPD without exacerbation Status: Chronic (8) History of stroke Status: Chronic Clinical Quality Measures DVT/VTE Risk/Contraindication: Risk Factor Score Per Nursin RFS Level Per Nursing on Admit: 4+=Very High FRAN PINEDA MD Dec 29, 2019 11:10
--- NOTE | 2019-12-29 14:25 | Physician Query Clarification ---
"Physician Query-General Query to Physician: The medical record reflects the following clinical scenario: History/Risk factors: HTN, CAD, Previous [place] Clinical Findings: Elevated troponin, Documentation by Dr. Caballero of probably type II [place] Treatment: Lovenox, ASA, Beta meron, Cardiology consult with recommendation for conservative management Question: Do you agree with the impression of Type II TX per Dr. Caballero? If you agree, please document in Progress Notes or Discharge Summary. 1. Yes; will document Type II TX in the Progress Notes and Discharge Summary 2. No; will continue to document Elevated Troponin in the Progress Notes and Discharge Summary 3. Other; will document explanation of clinical findings 4. Clinically undetermined; no explanation for clinical findings Please remember a lack of response to the above will prompt a phone page by CDI/coding staff. In responding to this query, please exercise your independent professional judgment. The purpose of this communication is to more accurately reflect the complexity of your patients condition. The fact that a question is asked does not imply that any particular answer is desired or expected. Thank you for timely response to this clarification. May Pelayo, MSN, RN RN Specialist-Clinical Doc Improvement CD -Health Info Mgmt Operations [address] [facility] t: [phone] | f: [phone] PHYSICIAN RESPONSE: Based on the clinical findings in the record, please respond to the query above on this document as an addendum. Physician Response: Physician Response 1 If you have questions please contact: Bindery Machine Feeder Offbearer: Ext: Thank you for your time and cooperation. Clinical Conservation Agent/Bindery Machine Feeder Offbearer This is a permanent part of the medical record MAY PELAYO Dec 29, 2019 14:25 FRAN PINEDA MD Dec 31, 2019 17:50"
== END 2019-12-29 10:15 | DRG 64 ==
LOC: EDUNIT# 14:36 → ER 14:37 → ICU 17:31 → UNDOADMIN 17:31 → 4TH 12-28 10:24
PROVIDERS: ADMIT Internal Medicine; ATTEND Internal Medicine
DX: I63.512 Cerebral infarction due to unspecified occlusion or stenosis of left middle cerebral artery (principal); I63.532 Cerebral infarction due to unspecified occlusion or stenosis of left posterior cerebral artery; R47.01 Aphasia; I21.A1 Myocardial infarction type 2; E87.6 Hypokalemia; E83.42 Hypomagnesemia; I25.10 Atherosclerotic heart disease of native coronary artery without angina pectoris; E78.5 Hyperlipidemia, unspecified; Z66 Do not resuscitate; I10 Essential (primary) hypertension; J44.9 Chronic obstructive pulmonary disease, unspecified; I25.2 Old myocardial infarction; Z90.49 Acquired absence of other specified parts of digestive tract; Z90.89 Acquired absence of other organs; Z90.710 Acquired absence of both cervix and uterus
CPT/HCPCS: 36415; 51702; 70450; 70496; 70498; 70553; 71045; 80048; 80053; 80061; 81000; 82962; 83735; 84100; 84484; 85025; 85379; 85610; 85730; 87081; 93005; 93041; 96374

== ENCOUNTER 2019-12-29 08:59 | Inpatient (IN) | payer MEDICARE, OTHER ==
[~2019-12-29] VITALS: Ht 165.1 cm; Wt 56.8 kg
[2019-12-29] MEDS ORDERED: BISACODYL 10 MG SUPP (DULCOLAX) PR PRN ×2 (09:45→12:45)
[2019-12-29] MEDS ORDERED: MELATONIN 3 MG TABLET PO PRN (09:45)
[2019-12-29] MEDS ORDERED: DOCUSATE SODIUM 100 MG (COLACE) CAP PO PRN (09:45)
[2019-12-29] MEDS ORDERED: LACTULOSE SYRUP 10GM/15ML (ENULOSE) 30ML UDC PO PRN (09:45)
[2019-12-29] MEDS ORDERED: diphenhydrAMINE 25 MG TAB (BENADRYL) PO PRN (09:45)
[2019-12-29] MEDS ORDERED: ONDANSETRON 4 MG (ZOFRAN) ORAL DISSOLVE TAB PO PRN ×2 (09:45→12:45)
[2019-12-29] MEDS ORDERED: CALCIUM CARBONATE 500 MG (TUMS) TAB.CHEW PO PRN (09:45)
[2019-12-29] MEDS ORDERED: FLEET ENEMA ADULT 1 EA BTL PR PRN (09:45)
[2019-12-29] MEDS ORDERED: guaiFENesin/CODEINE (ROBITUSSIN AC) 10ML UDC PO PRN (09:45)
[2019-12-29] MEDS ORDERED: ALPRAZolam 0.25 MG (XANAX) TAB PO PRN (09:45)
[2019-12-29] MEDS ORDERED: LOPERAMIDE 2 MG (IMODIUM) TABLET PO PRN (09:45)
--- NOTE | 2019-12-29 10:15 | NUR ---
Nathaly Scherer admitted to room 233-1, with an admitting diagnosis of CVA, on 12/29/19 from [facility] 4th floor medical via wheelchair, accompanied by staff. NATHALY SCHERER introduced to surroundings, call light, bed controls, phone, TV, temperature control, lights, meal times, smoking policy, visitor policy, side rail policy, bathrooms and showers. Patient Rights given to patient in the handbook.NATHALY SCHERER verbalizes understanding that [facility] is not responsible for the loss or damage to any personal effects or valuables that are kept in the patients possession during their hospitalization. NATHALY SCHERER verbalizes understanding of Interdisciplinary Patient Education. Patient and/or family were informed about the Rapid Response Team and its purpose. Patient received Patient Rights Booklet, which includes Privacy Act Statement and Data Collection Information Summary.
--- NOTE | 2019-12-29 10:46 | NUR ---
PT'S SALMON AND IV FLUIDS WERE DISCONTINUED BY THIS NURSE PER DR. PINEDA BEFORE GOING TO ICU. HER TELEMONITOR WAS DISCONTINUED BY ALLEN ROBERSON PER CHRISTIANO MENDEZ
--- NOTE | 2019-12-29 11:02 | NUR ---
I WAS UNABLE TO SPEAK WITH THE PT AND COMPLETE THE MED REC WHEN SHE WAS ON 4TH FLOOR- I HAVE WENT THRU THE EXT MED HISTORY, AND CALLED [facility] AND WENT THRU PAST NOTES TO COMPLETE THE MED REC
--- NOTE | 2019-12-29 11:27 | Physical Therapy Daily Note ---
PT Daily Note-Current Subjective Patient in recliner pre tx, agrees to PT, has no complaints of pain. Appearance Patient in therapy gym post tx with OT who has her next. Mental Status Patient Orientation: Person, M[place] Transfers SCALE: Activities may be completed with or without assistive devices. 9-Xkqgpoysts-qdbsjhz completes the activity by him/herself with no assistance from a helper. 5-Set-up or Clean-up Assistance-helper sets up or cleans up; patient completes activity. [place] assists only prior to or following the activity. 4-Supervision or Touching Assistance-helper provides verbal cues and/or touching/steadying and/or contact guard assistance as patient completes activity. Assistance may be provided throughout the activity or intermittently. 3-Partial/Moderate Assistance-helper does LESS THAN HALF the effort. [place] lifts, holds or supports trunk or limbs, but provides less than half the effort. 2-Substantial/Maximal Assistance-helper does MORE THAN HALF the effort. [place] lifts or holds trunk or limbs and provides more than half the effort. 8-Sdnfyxzng-jtldrm does ALL the effort. Patient does none of the effort to complete the activity. Or, the assistance of 2 or more helpers is required for the patient to complete the activity. If activity was not attempted, code reason: 7-Patient Refused. 9-Not Applicable-not attempted and the patient did not perform the activity before the current illness, exacerbation or injury. 10-Not Attempted due to Environmental Limitations-(lack of equipment, weather restraints, etc.). 88-Not Attempted due to Medical Conditions or Safety Concerns. Sit to Stand (QC): 4 Chair/Smb-dx-Akclw Xfer(QC): 4 SBA Gait Training Distance: 120' Walk 10 feet (QC): 4 Walk 50 ft with 2 Turns(QC): 4 Gait Persons Needed: 1 Gait Assistive Device: FWW SBA, slightly slow but steady ambulation Exercises Standing: Hip Abduction, Heel/toe raises, Mini squats Standing Reps: 15 LAQ alternating for 5 min Treatments transfers, ambulation, functional strengthening Assessment Current Status: Fair Progress patient needs occasional cues for direction and positioning PT Assisted Goals Choir Leader Goals PT Choir Leader Goals Time Frame: Jan 14, 2020 Roll Left & Right (QC): 6 Sit to Lying (QC): 6 Lying-Sitting on Side/Bed(QC): 6 Sit to Stand (QC): 6 Chair/Acp-wq-Chlef Xfer(QC): 6 Toilet Transfer (QC): 6 Car Transfer (QC): 6 Does the Patient Walk: Yes Walk 10 feet (QC): 6 Walk 50ft with 2 Turns (QC): 6 Walk 150 ft (QC): 6 Walking 10ft on Uneven Surface: 6 1 Step (curb) (QC): 6 4 Steps (QC): 6 12 Steps (QC): 6 Picking up an Object (QC): 6 Wheel 50 feet with 2 turns (QC: 9 Wheel 150 feet: 9 PT Plan Problem List Problem List: Activity Tolerance, Functional Strength, Safety, Balance, Gait, Transfer, Bed Mobility, ROM Treatment/Plan Treatment Plan: Continue Plan of Care Treatment Plan: Bed Mobility, Education, Functional Activity Vijay, Functional Strength, Group Therapy, Gait, Safety, Therapeutic Exercise, Transfers Treatment Duration: Jan 14, 2020 Frequency: At least 5 of 7 days/Wk (IRF) Estimated Hrs Per Day: 1.5 hours per day Patient and/or Family Agrees t: Yes Safety Risks/Education Patient Education: Gait Training, Transfer Techniques, Correct Positioning, Safety Issues Teaching Recipient: Patient Teaching Methods: Demonstration, Discussion Response to Teaching: Reinforcement Needed Time/GCodes Time In: 1100 Time Out: 1115 Total Billed Treatment Time: 15 Total Billed Treatment 1 visit FA 15' TIFFANIE VERA PT Dec 29, 2019 11:27
--- NOTE | 2019-12-29 11:52 | Physical Therapy Evaluation ---
PT Evaluation-General Medical Diagnosis Admission Date December 29, 2019 Medical Diagnosis: CVA Onset Date: Dec 27, 2019 Therapy Diagnosis Therapy Diagnosis: debility/weakness Height/Weight Height (Feet): 5 Height (Inches): 5.00 Weight (Pounds): 119 Weight (Ounces): 9.0 Precautions Precautions/Isolations: Fall Prevention, Standard Precautions Referral Physician: Savanna Reason for Referral: Evaluation/Treatment Medical History Pertinent Medical History: CAD, COPD, CVA, HTN, [place] Current History transfer to ARU secondary to CVA Reviewed History: Yes Social History Home: Single Level Current Living Status: Spouse Entry Into Home: Stairs With Railing PT Steps Into Home: 1 Prior Prior Level of Function SCALE: Activities may be completed with or without assistive devices. 1-Tosltogqmj-mgtgrwq completes the activity by him/herself with no assistance from a helper. 5-Set-up or Clean-up Assistance-helper sets up or cleans up; patient completes activity. [place] assists only prior to or following the activity. 4-Supervision or Touching Assistance-helper provides verbal cues and/or touching/steadying and/or contact guard assistance as patient completes activity. Assistance may be provided throughout the activity or intermittently. 3-Partial/Moderate Assistance-helper does LESS THAN HALF the effort. [place] lifts, holds or supports trunk or limbs, but provides less than half the effort. 2-Substantial/Maximal Assistance-helper does MORE THAN HALF the effort. [place] lifts or holds trunk or limbs and provides more than half the effort. 7-Ljycdeyhn-tovout does ALL the effort. Patient does none of the effort to complete the activity. Or, the assistance of 2 or more helpers is required for the patient to complete the activity. If activity was not attempted, code reason: 7-Patient Refused. 9-Not Applicable-not attempted and the patient did not perform the activity before the current illness, exacerbation or injury. 10-Not Attempted due to Environmental Limitations-(lack of equipment, weather restraints, etc.). 88-Not Attempted due to Medical Conditions or Safety Concerns. Bed Mobility: 6 Transfers (B,C,W/C): 6 Gait: 6 Stairs: 6 Wheelchair Mobility: 9 Indoor Mobility (Ambulation): Independent Stairs: Independent Prior Devices Use: None PT Evaluation-Current Subjective Patient agrees to PT. Pain Numeric Pain Scale: 0-No Pain Location: No Pain Reported Objective Patient Orientation: Person, Time, Situation ROM/Strength ROM Lower Extremities bilateral LE WFL Strength Lower Extremities 4-/5 grossly bilateral LE Integumentary/Posture Integumentary refer to nursing notes Bowel Incontinence: No Bladder Incontinence: Yes Posture WFL Neuromuscular (Tone, Coordination, Reflexes) grossly intact Sensory Vision: Functional Sensation Right Lower Extremit: Intact Sensation Left Lower Extremity: Intact Transfers Roll Left to Right (QC): 6 Sit to Lying (QC): 5 Lying to Sitting/Side of Bed(Q: 5 Sit to Stand (QC): 5 Chair/Hrw-ad-Tnupp Xfer(QC): 5 Toilet Transfer (QC): 5 Car Transfer (QC): 5 Gait Does the Patient Walk?: Yes Mode of Locomotion: Walk Anticipated Mode of Locomotion: Walk Walk 10 feet (QC): 5 Walk 50 ft with 2 Turns(QC): 5 Walk 150 ft (QC): 5 Walking 10ft/uneven surface-QC: 5 Distance: 400' x 1/200' x 2 Gait Assistive Device: FWW Comments/Gait Description safe and functional with no deviation Wheelchair Training Does the Pt Use a Wheelchair?: No Wheel 50 ft with 2 turns (QC): 9 Wheel 150 ft (QC): 9 Stairs #of Steps: 12 1 Step (curb) (QC): 5 4 Steps (QC): 5 12 Steps (QC): 5 Balance Sitting Static: Normal Sitting Dynamic: Normal Standing Static: Normal Standing Dynamic: Normal Picking up an Object (QC): 5 Treatment Ambulation with FWW 400' x 1 and 200' x 2 without deviation. Patient tolerates increased distance without difficulty. Assessment/Needs 89 y.o. female, will benefit from short term skilled PT to address functional mobility and strength to ensure safe return to home with spouse and home health therapy. Rehab Potential: Fair PT Child Welfare Manager Goals Child Welfare Manager Goals PT Child Welfare Manager Goals Time Frame: Jan 14, 2020 Roll Left & Right (QC): 6 Sit to Lying (QC): 6 Lying-Sitting on Side/Bed(QC): 6 Sit to Stand (QC): 6 Chair/Nbw-ep-Umask Xfer(QC): 6 Toilet Transfer (QC): 6 Car Transfer (QC): 6 Does the Patient Walk: Yes Walk 10 feet (QC): 6 Walk 50ft with 2 Turns (QC): 6 Walk 150 ft (QC): 6 Walking 10ft on Uneven Surface: 6 1 Step (curb) (QC): 6 4 Steps (QC): 6 12 Steps (QC): 6 Picking up an Object (QC): 6 Does the Pt use WC or Scooter?: No Wheel 50 feet with 2 turns (QC: 9 Wheel 150 feet: 9 PT Plan Treatment/Plan Treatment Plan: Continue Plan of Care Treatment Plan: Bed Mobility, Education, Functional Activity Vijay, Functional Strength, Group Therapy, Gait, Safety, Therapeutic Exercise, Transfers Treatment Duration: Jan 14, 2020 Frequency: At least 5 of 7 days/Wk (IRF) Estimated Hrs Per Day: 1.5 hours per day Patient and/or Family Agrees t: Yes Discharge Recommendations Therapy Discharge Recommendati: Home & Family (home health therapy), Post Acute PT Time/GCodes Time In: 1015 Time Out: 1100 Total Billed Treatment Time: 45 Total Billed Treatment 1 visit EVModC 15 min FA x 2 30 min KATIA MANUEL PT Dec 29, 2019 11:52
--- NOTE | 2019-12-29 12:35 | PM&R Post Admission Assessment ---
PM&R HP Date of Visit: Dec 29, 2019 Time of Visit: 12:00 History of Present Illness CC: CVA HPI: (ER HPI per Dr Colvin: This 89-year-old woman presents to the emergency room with altered mental status, aphasia and suspicion for stroke. She arrives via [facility]. Last known well time is not certain. She interacted with a neighbor around 11:15. The neighbor brought the mail in and hollered down the lopez at her. The patient replied "I'll be out in a minute to get it", but the neighbor did not actually physically interact with her at that time. Patient was then found lower with a aphasia by the same neighbors and EMS was activated. Patient has difficulty understanding and/or following commands. She also appears to have expressive aphasia. There appeared to be no focal motor deficits. She is not a TPA candidate due to uncertain time of onset of symptoms. Patient lives alone and is independent with some difficulty. 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 Her initial CT scan did not show any clear evidence of acute stroke. She underwent a CTA which was unrevealing. She was not a candidate for TPA. She was started on aspirin and high intensity statin. 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 She was transferred to inpatient rehabilitation for ongoing therapies). Currently she appears a bit slowed mentation-mcnulty but appears to recognize me from my clinic from previous medical care for 7 yrs before transferring her care to Dr Penn. Patient denies pain and appears to be willing to participate in IRF protocol. Reviewed ER and H&P notes. Past Awgckew-Jscaup-Qxgblw Hx Past Med/Social Hx: Reviewed Nursing Past Med/Soc Hx, Reviewed and Corrections made Patient Social History Marrital Status: Employed/Student: retired Alcohol Use: Denies Use Smoking Status: Never a Smoker 2nd Hand Smoke Exposure: No Recent Hopitalizations: No Immunizations Up To Date Tetanus Booster (TDap): More than 5yrs Pediatric: Yes Date of Pneumonia Vaccine: Apr 19, 2016 Date of Influenza Vaccine: May 10, 2019 Seasonal Allergies Seasonal Allergies: Yes Past Medical History Surgeries: Appendectomy, Cardiac, Gallbladder, Hysterectomy, Tonsillectomy Respiratory: Asthma, Chronic Bronchitis, COPD, Pneumonia Currently Using CPAP: No Currently Using BIPAP: No Cardiac: Coronary Artery Disease, Heart Attack, High Cholesterol, Hypertension Neurological: Stroke Reproductive: No Hysterectomy Gastrointestinal: Gastrointestinal Bleed Musculoskeletal: Osteoporosis, Chronic Back Pain History of Blood Disorders: No Family History Congenital heart disease 19 FATHER G8 BROTHER FH: breast cancer G8 SISTER No Pertinent Family Hx Prior Level of Function Bed Mobility: 6 Transfers: 6 Gait: 6 Stairs: 6 Wheelchair Mobility: 9 Indoor Mobility (Ambulation): Independent Stairs: Independent Prior Devices Use: None Current Level of Fuctioning Roll Left to Right: 6 Sit to Lyin Lying to Sitting/Side of Bed: 5 Sit to Stand: 5 Chair/Azz-zf-Hnyfp Xfer: 5 Car Transfer: 5 Does the Patient Walk: Yes Mode of Locomotion: Walk Anticipated Mode of Locomotion: Walk Walk 10 feet: 5 Walk 50 ft with 2 Turns: 5 Walk 150 ft: 5 Walking 10ft on uneven surface: 5 Gait Assistive Device: FWW Does the Pt Use a Wheelchair: No Wheel 50 ft with 2 turns: 9 Wheel 150 ft: 9 #of Steps: 12 1 Step (curb): 5 4 Steps: 5 12 Steps: 5 Picking up an Object: 5 PM&R Allergy/Meds/Data Review Allergies Coded Allergies: No Known Drug Allergies (Unverified , 06/19/19) Home Medications Scheduled Aspirin (Aspir 81), 81 MG PO HS, (Reported) Atenolol (Atenolol), 50 MG PO HS, (Reported) Bimatoprost (Lumigan), 1 DROP OD HS, (Reported) Cetirizine HCl (Cetirizine HCl), 10 MG PO HS, (Reported) Fluticasone/Salmeterol (Advair 250-50 Diskus), 1 PUFF IH BID, (Reported) Lisinopril (Lisinopril), 10 MG PO HS, (Reported) Montelukast Sodium (Montelukast Sodium), 10 MG PO HS, (Reported) Pantoprazole Sodium (Pantoprazole Sodium), 40 MG PO DAILY, (Reported) Potassium Chloride (Potassium Chloride), 10 MEQ PO DAILY, (Reported) Simvastatin (Simvastatin), 40 MG PO HS, (Reported) Sucralfate (Sucralfate), 1 GM PO ACHS, (Reported) Vit C/E/Zn/Coppr/Lutein/Zeaxan (Preservision Areds 2 Softgel), 1 CAP PO BID, (Reported) Scheduled PRN Albuterol Sulfate (Proair Respiclick), 1-2 PUFF IH Q4H PRN for WHEEZING Albuterol/Ipratropium (Combivent Respimat Inhal [place]), 1 PUFF IH Q6H PRN for SHORTNESS OF BREATH, (Reported) Fluticasone Propionate (Flonase Allergy Relief), 1 SPRAY NS DAILY PRN for CONGESTION, (Reported) [Nasal Rinse], NS QID PRN for DRY NOSE, (Reported) Discontinued Medications Oseltamivir Phosphate (Tamiflu), 75 MG PO DAILY Discontinued Reason: Duplicate Order Prednisone (Prednisone), 10 MG PO DAILY Discontinued Reason: No Longer Taking Prednisone (Prednisone), 40 MG PO DAILY Discontinued Reason: No Longer Taking Current Medications Current Medications Reviewed Review of Systems Constitutional: see HPI, dizziness, malaise, weakness EENTM: no symptoms reported Respiratory: no symptoms reported Cardiovascular: no symptoms reported Gastrointestinal: no symptoms reported Genitourinary: no symptoms reported Musculoskeletal: joint pain Skin: no symptoms reported Psychiatric/Neurological: Numbness, Pre-Existing Deficit, Tingling, Weakness All Other Systems Reviewed Negative Unless Noted: Yes Physical Exam Physical Exam Vital Signs Capillary Refill : Height, Weight, BMI Height: 5'5.00" Weight: 119lbs. 9.0oz. 54.695082ul; 22.00 BMI Method:Stated General Appearance: No Apparent Distress, WD/WN, Chronically ill, Thin, Other (frail) Eyes: Bilateral Eye Normal Inspection, Bilateral Eye PERRL HEENT: PERRL/EOMI, Normal ENT Inspection, Pharynx Normal Neck: Full Range of Motion, Normal Inspection, Non Tender, Supple, Carotid Bruit Respiratory: Chest Non Tender, Lungs Clear, No Accessory Muscle Use, No Respiratory Distress, Decreased Breath Sounds Cardiovascular: Regular Rate, Rhythm, No Edema, No Gallop, No JVD, No Murmur, Normal Peripheral Pulses Gastrointestinal: Normal Bowel Sounds, No Organomegaly, No Pulsatile Mass, Non Tender, Soft Back: Normal Inspection, No CVA Tenderness, No Vertebral Tenderness Extremity: Normal Capillary Refill, Normal Inspection, Normal Range of Motion, Non Tender, No Calf Tenderness, No Pedal Edema Neurologic/Psychiatric: Alert, No Motor/Sensory Deficits, Normal Mood/Affect, social work instructor II-XII Norm as Tested, Abnormal Gait, Aphasia (partial), Depressed Affect, Disoriented, Motor Weakness (4/5 motor weakness of legs) Skin: Normal Color, Warm/Dry Lymphatic: No Adenopathy PM&R Medical Assessment & Plan REHAB/MEDICAL ASSESSMENT AND PLAN: REHAB IMPAIRMENT GROUP: CVA ETIOLOGIC DIAGNOSIS: CVA The comorbidities that impact the patients function and/or functional outcome by: prior CVA and dementia residual? Asthma, HTN, lives alone REHAB PLAN: The patient is being admitted to our comprehensive inpatient rehabilitation facility and can tolerate the intensity of service consisting of at least: 180 minutes of therapy a day, 5 out of 7 days a week Rehab treatment will consist of: PT OT will help strengthen and prevent falls and increase ADL independence, ST will help cognition and encourage independent thought process The patient/family has a good understanding of our discharge process and will benefit from an interdisciplinary inpatient rehabilitation program. The patient has potential to make improvement and is in need of at least two of the following multidisciplinary therapies including but not limited to physical, occupational, speech, and prosthetics and orthotics. Additionally the patient will need services from respiratory, nutritional services, wound care, psychology, etc. (Customize this to each patient). Given the patients complex condition and risk of further medical complications, rehabilitation services cannot be safely or effectively provided at a lower level of care such as a penitentiary facility. BARRIERS TO DISCHARGE: Lives alone and appears to have significant cognitive issues ESTIMATED LOS: 10 days DISPOSITION: Home versus AL RELEVANT CHANGES SINCE PREADMISSION SCREENING: I have compared the patients medical and functional status at the time of the preadmission screening and there are: no changes PROGNOSIS: Fair REHABILITATION GOALS: 1. PT OT will help strengthen and prevent falls and increase ADL independence, ST will help cognition and encourage independent thought process All the above goals were reviewed with the patient and he/she is in agreement. By signing this document, I acknowledge that I have personally performed a full physical examination on this patient within 24 hours of admission to this inpatient rehabilitation facility and have determined the patient to be able to tolerate the above course of treatment at an intensive level for a reasonable period of time. I will be completing a detailed individualized Plan of Care for this patient by day #4 of the patients stay based upon the Preadmission Screen, the Post-Admission Evaluation, and the therapy evaluations. 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 Status: Acute ICD Codes: I63.532 - Cerebral infarction due to unspecified occlusion or stenosis of left posterior cerebral artery (2) COPD without exacerbation Status: Chronic ICD Codes: J44.9 - Chronic obstructive pulmonary disease, unspecified (3) History of stroke Status: Chronic ICD Codes: Z86.73 - Personal history of transient ischemic attack (TIA), and cerebral infarction without residual deficits (4) Elevated troponin Status: Acute ICD Codes: R79.89 - Other specified abnormal findings of blood chemistry (5) HLD (hyperlipidemia) Status: Chronic ICD Codes: E78.5 - Hyperlipidemia, unspecified (6) HTN (hypertension) Status: Acute ICD Codes: I10 - Essential (primary) hypertension (7) CAD (coronary artery disease) Status: Chronic ICD Codes: I25.10 - Atherosclerotic heart disease of [place] coronary artery without angina pectoris (8) Altered mental status Status: Acute ICD Codes: R41.82 - Altered mental status, unspecified (9) Aphasia Status: Acute ICD Codes: R47.01 - Aphasia GUILLE ALVARADO DO Dec 29, 2019 12:35
[2019-12-29 12:37] VITALS: BP 188/81
[2019-12-29] MEDS ORDERED: HOLD METFORMIN - RECEIVED CONTRAST 20 ML VIAL IV SCH (12:45)
[2019-12-29] MEDS ORDERED: CATHETER FLUSH 10 ML SYR IV PRN (12:45)
[2019-12-29] MEDS ORDERED: ANTACID SUSP 30 ML UDC (MYLANTA) PO PRN (12:45)
[2019-12-29] MEDS ORDERED: ONDANSETRON 4 MG/2 ML (SDV) Z0FRAN IV PRN (12:45)
[2019-12-29] MEDS ORDERED: polyethylene glycoL POWDER 17 GM (MIRALAX) PACK PO PRN (12:45)
[2019-12-29] MEDS ORDERED: ACETAMINOPHEN 325 MG TABLET PO PRN (12:45)
--- NOTE | 2019-12-29 12:47 | Occupational Therapy Eval ---
OT Evaluation-General/PLF Medical Diagnosis Admission Date Dec 29, 2019 at 10:15 Medical Diagnosis: CVA Onset Date: Dec 27, 2019 Therapy Diagnosis Therapy Diagnosis: impaired ADLS/functional mobility Height/Weight Height (Feet): 5 Height (Inches): 5.00 Weight (Pounds): 119 Weight (Ounces): 9.0 Precautions Precautions/Isolations: Fall Prevention, Standard Precautions Referral Physician: Savanna Referral Reason: Evaluation/Treatment Medical History Pertinent Medical History: CAD, COPD, CVA, HTN, [place] Additional Medical History Appendectomy, Cardiac, Gallbladder, Hysterectomy, Tonsillectomy, Coronary Artery Disease, Heart Attack, High Cholesterol, Hypertension, Stroke Current History Transfer to ARU secondary to CVA Reviewed History: Yes Social History Home: Single Level Current Living Status: Spouse Entry Into Home: Stairs With Railing Steps Into Home: 1 Pt reports living with her "Prosper". This OT talked with pt yesterday and pt reported she lives alone. ADL-Prior Level of Function SCALE: Activities may be completed with or without assistive devices. 1-Blrrkivsqz-prprafo completes the activity by him/herself with no assistance from a helper. 5-Set-up or Clean-up Assistance-helper sets up or cleans up; patient completes activity. [place] assists only prior to or following the activity. 4-Supervision or Touching Assistance-helper provides verbal cues and/or touching/steadying and/or contact guard assistance as patient completes activity. Assistance may be provided throughout the activity or intermittently. 3-Partial/Moderate Assistance-helper does LESS THAN HALF the effort. [place] lifts, holds or supports trunk or limbs, but provides less than half the effort. 2-Substantial/Maximal Assistance-helper does MORE THAN HALF the effort. [place] lifts or holds trunk or limbs and provides more than half the effort. 8-Azsdkvwpt-irqdgx does ALL the effort. Patient does none of the effort to complete the activity. Or, the assistance of 2 or more helpers is required for the patient to complete the activity. If activity was not attempted, code reason: 7-Patient Refused. 9-Not Applicable-not attempted and the patient did not perform the activity before the current illness, exacerbation or injury. 10-Not Attempted due to Environmental Limitations-(lack of equipment, weather restraints, etc.). 88-Not Attempted due to Medical Conditions or Safety Concerns. ADL PLOF Comments Pt reports being able to complete all ADLS and functional mobility at OF. She states she uses a walker once and a while but primarily uses a cane. Pt denies needing any assistance with bathing, dressing, cooking and cleaning but she did report is was difficult. Self Care: Independent Functional Cognition: Unknown DME/Equipment Comments cane/walker OT Current Status Subjective Pt finished with PT tx, agreeable to OT session. Pt did not verbalize any pain. Mental Status/Objective Patient Orientation: Person, Confused, Place Pt pleasantly confused during tx. She told this OT she had 2 daughters ages 2 and 3, and she also has 2 grandsons. She later states she has 2 sons, but no daughters. She believed she is at the hospital for heart rehab and at one point she thought she had to do something with a jukebox. Current Glasses/Contacts: Yes Hearing Aids: No Dentures/Partials: No Hand Dominance: Right Upper Extremity ROM WFL, BUE shoulder flexion to approx 125 degrees, she is able to touch the back of her head with her hands. Upper Extremity Coordination WFL, thumb opposition to each finger Upper Extremity Sensation Pt denies tingling/numbness Upper Extremity Strength Pt had difficulty following instruction for MMT, grossly 3/5 MMT BUEs ADL-Treatment Eating (QC): 6 (Pt able to take lid off tea, and use fork to bring food to her mouth) Oral Hygiene (QC): 4 (SBA for cues. Pt able to open toothpaste and place on toothbrush, she then asked "now what do you want me to do?". OT cued pt to brush her teeth. Min cues with task.) Shower/Bathe Self (QC): 7 Upper Body Dressing (QC): 7 Lower Body Dressing (QC): 7 On/Off Footwear (QC): 7 Toileting Hygiene (QC): 3 (Pt attempted to manage briefs down but had difficulty, OT assisted pt with managing brief then pt able to complete toilet hygiene and pull brief up) Other Treatments Pt seated in therapy gym post PT tx. She required a short rest break before ambulating to her room using FWW with SBA, transferring to recliner. OT educated pt on purpose and benefits of OT, verbalized understanding. Pt then provided information about her PLOF and home set up. OT gathered ADL supplies, setting up on tray table. OT handed pt toothbrush instructing her to open the plastic. She attempted to open but then looked around her lap saying she dropped something. When asked what she dropped, pt indicated she had lost the toothpaste. OT oriented pt to toothpaste being on the tray table but pt continued looking in her lap requiring redirection to task of opening toothbrush. Pt unable to open toothbrush requiring assistance from OT. Pt then able to put toothpaste onto the brush and brush her teeth with min cues. OT cleaned up from task. OT then noticed pt pulling at hospital gown like she was looking for something. When OT asked pt what she was doing, pt reported "I want to wipe my mouth". Pt had a washcloth sitting on tray table in front of her, OT handed pt washcloth and she was able to wipe her mouth. Pt then ambulated to the restroom to complete toileting and handwashing. Pt returned to the recliner. Pt's lunch tray arrived, she was able to take the lid off of her tea and bring food to mouth with her fork. Post OT session, pt seated in recliner, call light in reach and all needs met, chair alarm on. Education OT Patient Education: Correct positioning, Exercise program, Modified ADL techniques, Progress toward Goal/Update tx plan, Purpose of tx/functional activities, Rehab process Teaching Recipient: Patient Teaching Methods: Discussion Response to Teaching: Verbalize Understanding, Reinforcement Needed OT Short Term Goals Short Term Goals Time Frame: Jan 09, 2020 Lower body dressin Putting on/taking off footwear: 4 OT Intermediate Goals Intermediate Goals Time Frame: Jan 14, 2020 Eating (QC): 6 Oral Hygiene (QC): 6 Toileting Hygiene (QC): 6 Shower/Bathe Self (QC): 6 Upper Body Dressing (QC): 6 Lower Body Dressing (QC): 6 On/Off Footwear (QC): 6 1=Demonstrate adherence to instructed precautions during ADL tasks. 2=Patient will verbalize/demonstrate understanding of assistive devices/modifications for ADL. 3=Patient will improve strength/tolerance for activity to enable patient to perf orm ADL's. OT Education/Plan Problem List/Assessment Assessment: Decreased Activ Tolerance, Decreased UE Strength, Impaired Funct Balance, Impaired I ADL's, Impaired Self-Care Skills Discharge Recommendations Plan/Recommendations: Continue POC Treatment Plan/Plan of Care Treatment,Training & Education: Yes Patient would benefit from OT for education, treatment and training to promote independence in ADL's, mobility, safety and/or upper extremity function for ADL's. Plan of Care: ADL Retraining, Functional Mobility, Group Exercise/Act as Ind, UE Funct Exercise/Act Treatment Duration: Jan 27, 2020 Frequency: At least 5 of 7 days/Wk (IRF) Estimated Hrs Per Day: 1.5 hours per day Rehab Potential: Fair Time/GCodes Start Time: 11:15 Stop Time: 12:10 Total Time Billed (hr/min): 55 Billed Treatment Time 1, EVM (15'), ADL 3 (40') DIONICIO VALERIO OT Dec 29, 2019 12:47
--- NOTE | 2019-12-29 13:11 | NUR ---
"RD ASSESSMENT PMHx: HTN; HLD; CAD; stroke; COPD; [place] PT INTERACTION: Note all information gathered during assessment on 4th floor. Pt was awake and pleasant during nutrition assessment. Note pt has AMS, per chart review. Pt states current appetite is good. Note avg PO intake <25% x1d, per chart review. Pt states following a regular diet at home, and has no issues with chewing/swallowing food. Pt states no recent issues with nausea, vomiting, constipation, or diarrhea, and that her last BM was 12/27. Note pt currently on bowel regimen of colace BID; and senna BID, per chart review. Pt states unsure of recent wt changes. Note recent 2# wt loss x4mon, per chart review. ABNORMAL NUTRITION-RELATED LAB VALUES Labs WNL at this time Est. kcal needs: [id number] kcal | 25-30 kcal/kg Est. Pro needs: 57-69 g Pro | 1.2-1.2 g Pro/kg PES STATEMENT: Inadequate oral intake (NI-2.1) related to loss of appetite as evidenced by pt interview | avg PO intake <25% x1d INTERVENTION: Continue with current diet order of Heart Healthy diet. Add Ensure Enlive (vary) to meals TID, for increased kcal intake. Provides 350 kcal and 13 g Pro per serving. Encouraged pt to eat when able. Will continue to follow and reassess as pt needs, intake, and status change. MONITOR/EVALUATE: PO Intake; Plan of Care; Hydration Status; Weight Status; Lab Values Denisse Greene, MS, RD, LD"
--- NOTE | 2019-12-29 13:27 | ST Cognitive Linguistic Eval ---
Speech Evaluation-General Medical Diagnosis CVA Onset Date: Dec 27, 2019 Therapy Diagnosis Therapy Diagnosis: Cognitive-communication Referral Referring Physician: Dr. Corrales Medical History Pertinent Medical History: CAD, COPD, CVA, HTN, ID Reviewed History: Yes Social History Current Living Status: Alone Speech PLF-Current Status Prior Level of Function Patient states she lived alone and was independent for her daily needs. Subjective Patient was pleasant, however very confused. Language Eval: Auditory Comprehends Simple Yes/No Ques: Mild Indent/Objects Multiple [place]: Moderate Ident/Pics in Multiple [place]: Severe Follows 1-Step Commands: Moderate Follows Complex Directions: Moderate Follows General Conversations: Moderate Language Eval: Verbal Language Completes Spontaneous Greeting: Functional Produces Auto, Serial Info: Mild Imitates Simple Words/Phrases: Moderate Word Finding: Moderate Requests Basic Needs: Moderate States Basic Personal Info: Moderate Expresses Complex Ideas: Severe Objective Cognitive Domain Attention: Mild Memory: Severe Problem Solving: Moderate Executive Functions: Moderate Visuospatial Skills: Mild Composite Severity Rating: Moderate Clock Drawing Severity Rating: Moderate Objective Formal/Standardized Tests [facility] Mental Status ([facility]) Results 01/16, Moderate dementia level of function. Oral Motor/Speech Production Within Normal Function Impression Patient is a pleasant very confused female who was brought to the SCU s/p CVA. Patient was evaluated yesterday by ST, however her scores are worse today at 01/16. SLUMS score is within the Moderate Dementia level. Patient is expected to have dementia prior to the CVA. She stated she would be at [place] tomorrow when I told her I would see her tomorrow. Patient will receive skilled ST although progress is guarded. Speech Patient Assess Expression of Ideas/Wants: Rarely/Never (1) Understanding Verbal Content: Sometimes Understands(2) Brief Interview-Mental Status: Yes Repetition of Three Words: One (1) Temporal Orientation: Year: Missed by more than 5 yrs (0) Temporal Orientation: Month: Missed by 6 days-1 month (1) Temporal Orientation: Day: Incorrect or No Answer(0) Recall : Wear to say "Sock": No, could not recall (0) Recall : Color: No, could not recall (0) Recall : Bed: No, could not recall (0) Memory/Recall Ability: None of the above were recalled Speech Short Term Goals Short Term Goals Short Term Goals 1) Patient will complete memory tasks related to her daily needs at 80% or greater with minimal cues. 2) Patient will complete safety awareness tasks related to her daily needs at 80% or greater with minimal cues. 3) Patient will complete problem solving tasks related to her daily needs at 80% or greater with minimal cues. Speech Product Safety Tester Goals Product Safety Tester Goals Patient will improve cognitive-communication necessary for safety and daily living tasks with minimal assist. Speech-Plan Patient/Family Goals Patient/Family Goals: Patient's discharge plans are unknown at this time. Treatment Plan Speech Therapy Treatment Plan: Continue Plan of Care Treatment Duration: Jan 06, 2020 Frequency: 5 times per week Estimated Hrs Per Day: .5 hour per day Rehab Potential: Fair Barriers to Learning: Patient's moderate dementia Pt/Family Agrees to Plan: Yes Safety Risks/Education Teaching Recipient: Patient Teaching Methods: Demonstration, Discussion Response to Teaching: Verbalize Understanding, Return Demonstration Education Topics Provided: Safety within her room and utilization of the call light as needed Time Speech Therapy Time In: 13:00 Speech Therapy Time Out: 13:15 Total Billed Time: 15 Billed Treatment Time 1, HERNANDEZ Martinez Dec 29, 2019 13:27
--- NOTE | 2019-12-29 13:47 | Physical Therapy Daily Note ---
PT Daily Note-Current Subjective Noted increase in confusion this p.m. Patient does state, "I'm tired and I'm done." Pain Numeric Pain Scale: 0-No Pain Location: No Pain Reported Mental Status Patient Orientation: Confused Transfers SCALE: Activities may be completed with or without assistive devices. 8-Jmpcqedkke-ubqjssz completes the activity by him/herself with no assistance from a helper. 5-Set-up or Clean-up Assistance-helper sets up or cleans up; patient completes activity. [place] assists only prior to or following the activity. 4-Supervision or Touching Assistance-helper provides verbal cues and/or touching/steadying and/or contact guard assistance as patient completes activity. Assistance may be provided throughout the activity or intermittently. 3-Partial/Moderate Assistance-helper does LESS THAN HALF the effort. [place] lifts, holds or supports trunk or limbs, but provides less than half the effort. 2-Substantial/Maximal Assistance-helper does MORE THAN HALF the effort. [place] lifts or holds trunk or limbs and provides more than half the effort. 2-Hgwlsselz-jvpkxz does ALL the effort. Patient does none of the effort to complete the activity. Or, the assistance of 2 or more helpers is required for the patient to complete the activity. If activity was not attempted, code reason: 7-Patient Refused. 9-Not Applicable-not attempted and the patient did not perform the activity before the current illness, exacerbation or injury. 10-Not Attempted due to Environmental Limitations-(lack of equipment, weather restraints, etc.). 88-Not Attempted due to Medical Conditions or Safety Concerns. Sit to Stand (QC): 5 Chair/Gxm-zc-Xafcf Xfer(QC): 5 Toilet Transfer (QC): 5 Gait Training Does the Patient Walk?: Yes Distance: 300' x 2 Walk 10 feet (QC): 5 Walk 50 ft with 2 Turns(QC): 5 Walk 150 ft (QC): 5 Gait Assistive Device: FWW Exercises Seated Therapy Exercises: Ankle pumps, Long arc quads Seated Reps: 15 NuStep Minutes: 15 NuStep Workload: 4 Assessment Patient tolerated treatment well and returned to room in recliner with chair alarm activated. PT to increase activity as tolerated by patient. PT Reference Data Expert Goals Long-Term Goals PT Long-Term Goals Time Frame: Jan 14, 2020 Roll Left & Right (QC): 6 Sit to Lying (QC): 6 Lying-Sitting on Side/Bed(QC): 6 Sit to Stand (QC): 6 Chair/Rhp-ea-Znrlm Xfer(QC): 6 Toilet Transfer (QC): 6 Car Transfer (QC): 6 Does the Patient Walk: Yes Walk 10 feet (QC): 6 Walk 50ft with 2 Turns (QC): 6 Walk 150 ft (QC): 6 Walking 10ft on Uneven Surface: 6 1 Step (curb) (QC): 6 4 Steps (QC): 6 12 Steps (QC): 6 Picking up an Object (QC): 6 Does the Pt use WC or Scooter?: No Wheel 50 feet with 2 turns (QC: 9 Wheel 150 feet: 9 PT Plan Treatment/Plan Treatment Plan: Continue Plan of Care Treatment Plan: Bed Mobility, Education, Functional Activity Vijay, Functional Strength, Group Therapy, Gait, Safety, Therapeutic Exercise, Transfers Treatment Duration: Jan 14, 2020 Frequency: At least 5 of 7 days/Wk (IRF) Estimated Hrs Per Day: 1.5 hours per day Patient and/or Family Agrees t: Yes Time/GCodes Time In: 1230 Time Out: 1300 Total Billed Treatment Time: 30 Total Billed Treatment 1 visit EX 16 min GT 14 min KATIA MANUEL PT Dec 29, 2019 13:47
--- NOTE | 2019-12-29 14:32 | Occupational Ther Daily Note ---
OT Current Status-Daily Note Subjective Pt seated in recliner sleeping, easily awoken. Pt agreed to OT tx with focus on showering with mod encouragement. Mental Status/Objective Patient Orientation: Confused ADL-Treatment Therapy Code Descriptions/Definitions Functional [place] Measure: 0=Not Assessed/NA 4=Minimal Assistance 1=Total Assistance 5=Supervision or Setup 2=Maximal Assistance 6=Modified [place] 3=Moderate Assistance 7=Complete IndependenceSCALE: Activities may be completed with or without assistive devices. 4-Bmkpbzvbtk-hicbcjr completes the activity by him/herself with no assistance from a helper. 5-Set-up or Clean-up Assistance-helper sets up or cleans up; patient completes activity. [place] assists only prior to or following the activity. 4-Supervision or Touching Assistance-helper provides verbal cues and/or touching/steadying and/or contact guard assistance as patient completes activity. Assistance may be provided throughout the activity or intermittently. 3-Partial/Moderate Assistance-helper does LESS THAN HALF the effort. [place] lifts, holds or supports trunk or limbs, but provides less than half the effort. 2-Substantial/Maximal Assistance-helper does MORE THAN HALF the effort. [place] lifts or holds trunk or limbs and provides more than half the effort. 3-Gpwmfxnqo-vbffqh does ALL the effort. Patient does none of the effort to complete the activity. Or, the assistance of 2 or more helpers is required for the patient to complete the activity. If activity was not attempted, code reason: 7-Patient Refused. 9-Not Applicable-not attempted and the patient did not perform the activity before the current illness, exacerbation or injury. 10-Not Attempted due to Environmental Limitations-(lack of equipment, weather restraints, etc.). 88-Not Attempted due to Medical Conditions or Safety Concerns. Shower/Bathe Self (QC): 4 (CGA to close SBA during shower for safety. Pt able to wash all parts, rewashing each part multiple times until OT cued pt. ) Upper Body Dressing (QC): 4 (SBA during tailoring teacher order for pt to manage night gown down. ) Lower Body Dressing (QC): 4 (Pt able to thread briefs and manage up with increased time and SBA during stand) On/Off Footwear: 4 (SBA, pt able to don/doff BLE socks.) Other Treatment Pt in recliner, agreed to ADL tx with mod encouragement. Pt ambulated to bathroom using FWW, OT told pt the bathroom was on the right but pt proceeded to walk forward and move the curtain to the side. OT again instructed pt where the bathroom was, pointing towards the right. Pt then walks towards the shower and states "I am not going to shower", OT encouraged pt to take a shower, she agreed. Pt then began doffing clothes in standing, OT instructed pt to sit down due to safety, pt continued to doff clothes in standing requiring close SBA. Pt transferred to the shower and completed showering, requiring assistance locating body wash. CGA to close SBA during shower due to safety, pt washed all parts multiple times. Pt then completed dressing and returned to the recliner. Post OT session, pt seated in recliner, call light in reach and all needs met, chair alarm on. Education OT Patient Education: Correct positioning, Energy conservation, Home exercise program, Modified ADL techniques, Progress toward Goal/Update tx plan, Purpose of tx/functional activities, Safety issues, Transfer techniques Teaching Recipient: Patient Teaching Methods: Discussion Response to Teaching: Verbalize Understanding OT Short Term Goals Short Term Goals Time Frame: Jan 09, 2020 Lower body dressin Putting on/taking off footwear: 4 OT Care Home Goals Tariff Inspector Goals Time Frame: Jan 14, 2020 Eating (QC): 6 Oral Hygiene (QC): 6 Toileting Hygiene (QC): 6 Shower/Bathe Self (QC): 6 Upper Body Dressing (QC): 6 Lower Body Dressing (QC): 6 On/Off Footwear (QC): 6 1=Demonstrate adherence to instructed precautions during ADL tasks. 2=Patient will verbalize/demonstrate understanding of assistive devices/modifications for ADL. 3=Patient will improve strength/tolerance for activity to enable patient to perform ADL's. OT Education/Plan Problem List/Assessment Assessment: Decreased Activ Tolerance, Decreased UE Strength, Impaired Cognition, Impaired I ADL's, Impaired Self-Care Skills Discharge Recommendations Plan/Recommendations: Continue POC Treatment Plan/Plan of Care Patient would benefit from OT for education, treatment and training to promote independence in ADL's, mobility, safety and/or upper extremity function for ADL's. Plan of Care: ADL Retraining, Functional Mobility, Group Exercise/Act as Ind, UE Funct Exercise/Act Treatment Duration: Jan 27, 2020 Frequency: At least 5 of 7 days/Wk (IRF) Estimated Hrs Per Day: 1.5 hours per day Rehab Potential: Fair Time/GCodes Start Time: 13:45 Stop Time: 14:20 Total Time Billed (hr/min): 35 Billed Treatment Time 1, ADL 2 DIONICIO VALERIO OT Dec 29, 2019 14:32
[2019-12-29] MEDS: ENOXAPARIN 40 MG/0.4 ML (LOVENOX) SYR SC SCH (15:45)
[2019-12-29] MEDS: hydrALAZINE (APRESOLINE) 25 MG TAB PO SCH ×2 (15:46→21:48)
[2019-12-29] MEDS: DOCUSATE SODIUM 100 MG (COLACE) CAP PO SCH (20:16)
[2019-12-29] MEDS: SENNOSIDES 8.6 MG (SENOKOT) TAB PO SCH (20:16)
[2019-12-29] MEDS: MELATONIN 3 MG TABLET PO PRN (20:16)
[2019-12-29] MEDS: ATENOLOL 50 MG (TENORMIN) TAB PO SCH (20:16)
[2019-12-29] MEDS: polyethylene glycoL POWDER 17 GM (MIRALAX) PACK PO SCH (20:17)
[2019-12-29] MEDS ORDERED: SENNA W/DOCUSATE (SENOKOT S) TABLET PO SCH (21:00)
[2019-12-29] MEDS ORDERED: DOCUSATE SODIUM 100 MG (COLACE) CAP PO SCH (21:00)
[2019-12-30 05:50] LABS: BASOPHILS % (AUTO) 0 % (0-10); EOSINOPHILS # (AUTO) 0.3 10^3/uL (0.0-0.3); EOSINOPHILS % (AUTO) 3 % (0-10); HEMATOCRIT 37 % (35-52); HEMOGLOBIN 12.4 G/DL (11.5-16.0); LYMPHOCYTES # (AUTO) 2.7 X 10^3 (1.0-4.0); LYMPHOCYTES % (AUTO) 25 % (12-44); MEAN CORPUSCULAR HEMOGLOBIN 28 PG (25-34); MEAN CORPUSCULAR HGB CONC 33 G/DL (32-36); MEAN CORPUSCULAR VOLUME 86 FL (80-99); MEAN PLATELET VOLUME 11.5 FL (7.4-10.4); MONOCYTES # (AUTO) 1.1 X 10^3 (0.0-1.0); MONOCYTES % (AUTO) 10 % (0-12); NEUTROPHILS # (AUTO) 6.8 X 10^3 (1.8-7.8); NEUTROPHILS % (AUTO) 63 % (42-75); PLATELET COUNT 193 10^3/uL (130-400); WHITE BLOOD COUNT 10.9 10^3/uL (4.3-11.0)
[2019-12-30 05:53] VITALS: BP 167/68
[2019-12-30 06:00] LABS: ALBUMIN 3.5 GM/DL (3.2-4.5); POTASSIUM 3.9 MMOL/L (3.6-5.0)
[2019-12-30 06:01] LABS: CALCIUM 8.9 MG/DL (8.5-10.1)
[2019-12-30 06:02] LABS: TOTAL PROTEIN 5.9 GM/DL (6.4-8.2)
[2019-12-30 06:04] LABS: BILIRUBIN,TOTAL 0.8 MG/DL (0.1-1.0)
[2019-12-30 06:06] LABS: CREATININE SERUM 0.89 MG/DL (0.60-1.30)
--- NOTE | 2019-12-30 06:18 | PM&R Progress Note ---
Subjective HPI/CC On Admission Date Seen by Provider: Dec 30, 2019 Time Seen by Provider: 10:30 Subjective/Events-last exam Patient had a good night No pain is reported Confusion noted Patient likely had dementia since last hemorrhagic CVA and she was living at home alone Fall risk remains Eating well No O2 at home Nebs and MDI only prn Checked meds and labs Conferred with RN Reviewed therapy notes Review of Systems General: Fatigue Neurological: Weakness, Incoordination, Confusion Objective Exam Vital Signs Vital Signs Date Time Temp Pulse Resp B/P (MAP) Pulse Ox O2 Delivery O2 Flow Rate FiO2 12/30/19 08:59 Room Air 12/30/19 08:55 76 151/66 (94) 12/30/19 05:53 37.0 20 95 Capillary Refill : Less Than 3 Seconds General Appearance: No Apparent Distress, WD/WN, Chronically ill, Thin, Other (frail) HEENT: PERRL/EOMI, Normal ENT Inspection, Pharynx Normal Neck: Full Range of Motion, Normal Inspection, Non Tender, Supple, Carotid Bruit Respiratory: Chest Non Tender, Lungs Clear, No Accessory Muscle Use, No Respiratory Distress, Decreased Breath Sounds Cardiovascular: Regular Rate, Rhythm, No Edema, No Gallop, No JVD, No Murmur, Normal Peripheral Pulses Gastrointestinal: Normal Bowel Sounds, No Organomegaly, No Pulsatile Mass, Non Tender, Soft Back: Normal Inspection, No CVA Tenderness, No Vertebral Tenderness Extremity: Normal Capillary Refill, Normal Inspection, Normal Range of Motion, Non Tender, No Calf Tenderness, No Pedal Edema Neurologic/Psychiatric: Alert, No Motor/Sensory Deficits, Normal Mood/Affect, building equipment operator II-XII Norm as Tested, Abnormal Gait, Aphasia (partial), Depressed Affect, Disoriented, Motor Weakness (4/5 motor weakness of legs) Skin: Normal Color, Warm/Dry Lymphatic: No Adenopathy Results/Procedures Lab Laboratory Tests 12/30/19 05:30 Patient resulted labs reviewed. FIM Transfers Therapy Code Descriptions/Definitions Functional [place] Measure: 0=Not Assessed/NA 4=Minimal Assistance 1=Total Assistance 5=Supervision or Setup 2=Maximal Assistance 6=Modified [place] 3=Moderate Assistance 7=Complete IndependenceSCALE: Activities may be completed with or without assistive devices. 4-Bxujbfwkil-amcrytb completes the activity by him/herself with no assistance from a helper. 5-Set-up or Clean-up Assistance-helper sets up or cleans up; patient completes activity. [place] assists only prior to or following the activity. 4-Supervision or Touching Assistance-helper provides verbal cues and/or touching/steadying and/or contact guard assistance as patient completes activity. Assistance may be provided throughout the activity or intermittently. 3-Partial/Moderate Assistance-helper does LESS THAN HALF the effort. [place] lifts, holds or supports trunk or limbs, but provides less than half the effort. 2-Substantial/Maximal Assistance-helper does MORE THAN HALF the effort. [place] lifts or holds trunk or limbs and provides more than half the effort. 8-Zkwavtaeb-kjnjjl does ALL the effort. Patient does none of the effort to complete the activity. Or, the assistance of 2 or more helpers is required for the patient to complete the activity. If activity was not attempted, code reason: 7-Patient Refused. 9-Not Applicable-not attempted and the patient did not perform the activity before the current illness, exacerbation or injury. 10-Not Attempted due to Environmental Limitations-(lack of equipment, weather restraints, etc.). 88-Not Attempted due to Medical Conditions or Safety Concerns. Roll Left to Right (QC): 6 Sit to Lying (QC): 5 Sit to Stand (QC): 5 Chair/Nst-au-Oasvf Xfer(QC): 5 Car Transfer (QC): 5 Gait Training Does the Patient Walk?: Yes Distance: 300' x 2 Walk 10 feet (QC): 5 Walk 50 ft with 2 Turns(QC): 5 Walk 150 ft (QC): 5 Walking 10ft/uneven surface-QC: 5 Gait Persons Needed: 1 Gait Assistive Device: FWW Wheelchair Training Does the Pt Use a Wheelchair?: No Wheel 50 ft with 2 turns (QC): 9 Wheel 150 ft (QC): 9 Stair Training #of Steps: 12 1 Step (curb) (QC): 5 4 Steps (QC): 5 12 Steps (QC): 5 Balance Picking up an Object (QC): 5 ADL-Treatment Eating (QC): 6 (Pt able to take lid off tea, and use fork to bring food to her mouth) Oral Hygiene (QC): 4 (SBA for cues. Pt able to open toothpaste and place on toothbrush, she then asked "now what do you want me to do?". OT cued pt to brush her teeth. Min cues with task.) Shower/Bathe Self (QC): 4 (CGA to close SBA during shower for safety. Pt able to wash all parts, rewashing each part multiple times until OT cued pt. ) Upper Body Dressing (QC): 4 (SBA during arts administrator or manager order for pt to manage night gown down. ) Lower Body Dressing (QC): 4 (Pt able to thread briefs and manage up with inc reased time and SBA during stand) On/Off Footwear (QC): 4 (SBA, pt able to don/doff BLE socks.) Toileting Hygiene (QC): 3 (Pt attempted to manage briefs down but had difficulty, OT assisted pt with managing brief then pt able to complete toilet hygiene and pull brief up) Assessment/Plan Assessment and Plan Assess & Plan/Chief Complaint Assessment: s/p acute ischemic CVA not a tPA candidate h/o hemorrhagic CVA Confusion acute on chronic? 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
--- NOTE | 2019-12-30 06:19 | Individualized Plan of Care ---
Individualized Plan of Care Rehab Nursing IPOC Order Admission Date Dec 29, 2019 at 10:15 Current Orders Orders Admission Order(Inpt,Obs,Sdc) (12/29/19 09:41) Vital Signs: Per Unit Policy ( 08,16,00 (12/29/19 09:41) Computer Applications Developer-Inpt Rehab Con (12/29/19 09:41) Rehab Nursing Orders-Ipoc (12/29/19 09:41) Physical Therapy Rehab Orders (12/29/19 09:41) Occupational Therapy Rehab Ord (12/29/19 09:41) Speech Therapy Rehab Orders (12/29/19 09:41) Cbc With Automated Diff (12/30/19 06:00) Comprehensive Metabolic Panel (12/30/19 06:00) General/Regular (12/29/19 Lunch) Intake & Output 06,14,22 (12/29/19 09:41) Precautions (Aru) (12/29/19 09:41) Weekly Weight WEEK (12/29/19 09:41) Rehab-Intensity Of Therapy (12/29/19 09:41) Initiate Admission Nursing Pro .admission (12/29/19 09:41) Alprazolam Tablet (Xanax Tablet) (12/29/19 09:45) Calcium Carbonate Chew Tablet (Antacid C (12/29/19 09:45) Diphenhydramine Tablet (Benadryl Tablet) (12/29/19 09:45) Docusate Sodium Capsule (Colace Capsule) (12/29/19 21:00) Docusate Sodium Capsule (Colace Capsule) (12/29/19 09:45) Bisacodyl Suppository (Dulcolax Supposit (12/29/19 09:45) Lactulose Oral Solution (Enulose Oral So (12/29/19 09:45) Na Phos/Na Biphos Enema (Fleet Enema Elver (12/29/19 09:45) Guaifenesin/Codeine Syrup (Robitussin Ac (12/29/19 09:45) Loperamide Tablet (Imodium Tablet) (12/29/19 09:45) Melatonin Tablet (Melatonin Tablet) (12/29/19 09:45) Polyethylene Glycol Powder Pkt (Miralax (12/29/19 21:00) Ondansetron Oral Dissolve Tab (Zofran (12/29/19 09:45) Senna S Tablet (Senokot S Tablet) (12/29/19 21:00) Initiate Admission Nursing Pro .admission (12/29/19 09:41) Admission Arrival Bed Request (12/29/19 10:22) Admission Arrival Bed Request (12/29/19 11:39) Code/Resuscitation (12/29/19 12:35) Incentive Spirometry (Nursing) Q2H (12/29/19 12:35) Sequential Compression Device Q4H (12/29/19 12:35) Heart Healthy (12/29/19 Dinner) Aspirin Enteric Coated Tablet (Ecotrin T (12/30/19 09:00) Atenolol Tablet (Tenormin Tablet) (12/29/19 21:00) Atorvastatin Tablet (Lipitor) (12/29/19 21:00) Docusate Sodium Capsule (Colace Capsule) (12/29/19 21:00) Bisacodyl Suppository (Dulcolax Supposit (12/29/19 12:45) Enoxaparin Injection (Lovenox Injection) (12/29/19 12:45) Melatonin Tablet (Melatonin Tablet) (12/29/19 12:45) Polyethylene Glycol Powder Pkt (Miralax (12/29/19 12:45) Antacid Suspension (Mylanta Suspension (12/29/19 12:45) Received Contrast (Hold Metformin- Contr (12/29/19 12:45) Sennosides Tablet (Senokot Tablet) (12/29/19 21:00) Sodium Chloride Flush (Catheter Flush Sy (12/29/19 12:45) Acetaminophen Tablet/Caplet (Tylenol T (12/29/19 12:45) Ondansetron Injection (Zofran Injectio (12/29/19 12:45) Ondansetron Oral Dissolve Tab (Zofran (12/29/19 12:45) Hydralazine Tablet (Apresoline Tablet) (12/29/19 14:00) Lisinopril Tablet (Zestril Tablet) (12/30/19 09:00) Oxycodone Immediate Rel Tablet (Oxyir Ta (12/29/19 12:45) Consult Cardiology (12/29/19 12:35) Patient Visit (12/29/19 ) Pt Eval Moderate Complexity (12/29/19 ) Functional Activities, Ea 15 (12/29/19 ) Patient Visit (12/29/19 ) Functional Activities, Ea 15 (12/29/19 ) Patient Visit (12/29/19 ) Speech Sound Lang Comp (12/29/19 ) Patient Visit (12/29/19 ) Exercise Therap, Ea 15 Min (12/29/19 ) Gait Training, Ea 15 Min (12/29/19 ) Request Ot Evaluate & Treat (12/29/19 16:19) Ambulate 08,12,20 (12/29/19 19:25) Sequential Compression Device Q4H (12/29/19 19:25) Dvt/Vte Risk - Notifiy Physici Q4H (12/29/19 19:25) Rehab Nursing Orders: Ongoing Assess. of Cognitive Status, Ongoing Assess. of Function Status, Bladder Management, Bladder Scan, Bladder Training, Bowel Management, Bowel Training, Disease Management & Educaiton, DVT Prophylaxis, Fall Prevention, Fluid/Electrolyte/Nutrition Mgmt, Infection Prevention, Medication Management & Education, Management of Risks & Complications, Management of Skin Intergrity, Nutrition Management, Pain Management, Patient/Family Support, Safety Management, Swallow Precautions Intensity of Therapy to be met Patient to be seen: Min.3h per day/5 of 7d PT IPOC Problem List: Activity Tolerance, Functional Strength, Safety, Balance, Gait, Transfer, Bed Mobility, ROM Treatment Plan: Continue Plan of Care Bed Mobility, Education, Functional Activity Vijay, Functional Strength, Group Therapy, Gait, Safety, Therapeutic Exercise, Transfers Treatment Duration: Jan 14, 2020 Frequency: At least 5 of 7 days/Wk (IRF) Estimated Hrs Per Day: 1.5 hours per day OT IPOC Problems: Decreased Activ Tolerance, Decreased UE Strength, Impaired Cognition, Impaired I ADL's, Impaired Self-Care Skills OT Treatment, Training and Edu: Yes Plan of Care: ADL Retraining, Functional Mobility, Group Exercise/Act as Ind, UE Funct Exercise/Act Treatment Duration: Jan 27, 2020 Frequency: At least 5 of 7 days/Wk (IRF) Estimated Hrs Per Day: 1.[address] IPOC Speech Therapy Treatment Plan: Continue Plan of Care Treatment Duration: Jan 06, 2020 Frequency: 5 times per week Estimated Hrs Per Day: .5 hour per day Computer Applications Developer/Case Mgmt Computer Applications Developer/Case Managemen: Discharge Planning Dietitian/Reaming Machine Operator For Plastic Dietitian/Reaming Machine Operator For Plastic to monitor nutritional status and make changes and/or recommendations as needed and work with speech pathology on dietary upgrades as the occur. 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
[2019-12-30] MEDS: hydrALAZINE (APRESOLINE) 25 MG TAB PO SCH ×3 (06:24→21:08)
[2019-12-30] MEDS: lisINopril 20 MG (PRINIVIL) TABLET PO SCH (08:53)
[2019-12-30] MEDS: DOCUSATE SODIUM 100 MG (COLACE) CAP PO SCH ×3 (08:54→20:01)
[2019-12-30] MEDS: polyethylene glycoL POWDER 17 GM (MIRALAX) PACK PO SCH ×2 (08:54→19:42)
[2019-12-30] MEDS: SENNOSIDES 8.6 MG (SENOKOT) TAB PO SCH ×3 (08:54→20:01)
[2019-12-30] MEDS: ASPIRIN E.C. 325 MG (ECOTRIN) TABLET PO SCH (08:54)
[2019-12-30 08:55] VITALS: BP 151/66
--- NOTE | 2019-12-30 09:00 | Physical Therapy Daily Note ---
PT Daily Note-Current Subjective Patient in bed pre tx, agrees to PT, has no complaints of pain. Appearance Patient in bed post tx with nurse call, phone, tray, bed alarm on. Mental Status Patient Orientation: Person, Confused Transfers SCALE: Activities may be completed with or without assistive devices. 2-Kcuxlcenvb-hjexnyj completes the activity by him/herself with no assistance from a helper. 5-Set-up or Clean-up Assistance-helper sets up or cleans up; patient completes activity. Hornbeck assists only prior to or following the activity. 4-Supervision or Touching Assistance-helper provides verbal cues and/or touching/steadying and/or contact guard assistance as patient completes activity. Assistance may be provided throughout the activity or intermittently. 3-Partial/Moderate Assistance-helper does LESS THAN HALF the effort. Hornbeck lifts, holds or supports trunk or limbs, but provides less than half the effort. 2-Substantial/Maximal Assistance-helper does MORE THAN HALF the effort. Hornbeck lifts or holds trunk or limbs and provides more than half the effort. 7-Lldisjash-fjovkh does ALL the effort. Patient does none of the effort to complete the activity. Or, the assistance of 2 or more helpers is required for the patient to complete the activity. If activity was not attempted, code reason: 7-Patient Refused. 9-Not Applicable-not attempted and the patient did not perform the activity before the current illness, exacerbation or injury. 10-Not Attempted due to Environmental Limitations-(lack of equipment, weather restraints, etc.). 88-Not Attempted due to Medical Conditions or Safety Concerns. Roll Left & Right (QC): 6 Sit to Lying (QC): 6 Lying to Sitting/Side of Bed(Q: 6 Sit to Stand (QC): 4 Chair/Zne-nn-Ozoan Xfer(QC): 4 Gait Training Distance: 400'x2 Walk 10 feet (QC): 4 Walk 50 ft with 2 Turns(QC): 4 Walk 150 ft (QC): 4 Gait Persons Needed: 1 Gait Assistive Device: FWW SBA, slow but steady ambulation Stair Training Stair Training: Handrails/: 2 handrails #of Steps: 8 1 Step (curb) (QC): 4 4 Steps (QC): 4 Stairs: Pattern: Step to CGA, cues for safety Exercises Supine Ex: Bridging, Ankle pumps, Quad Set, Glut sets, Heel Slides, Short Arc Quads, Straight leg raise, Hip abd/add (with RTB and ball) Supine Reps: 20 NuStep Minutes: 15 NuStep Workload: 4 Treatments bed mobility and transfers, ambulation, functional strengthening Assessment Current Status: Fair Progress steady ambulation but confused, fall risk PT Religion Department Chair Goals Detention Goals PT Religion Department Chair Goals Time Frame: Jan 14, 2020 Roll Left & Right (QC): 6 Sit to Lying (QC): 6 Lying-Sitting on Side/Bed(QC): 6 Sit to Stand (QC): 6 Chair/Wsy-is-Ubecp Xfer(QC): 6 Toilet Transfer (QC): 6 Car Transfer (QC): 6 Does the Patient Walk: Yes Walk 10 feet (QC): 6 Walk 50ft with 2 Turns (QC): 6 Walk 150 ft (QC): 6 Walking 10ft on Uneven Surface: 6 1 Step (curb) (QC): 6 4 Steps (QC): 6 12 Steps (QC): 6 Picking up an Object (QC): 6 Does the Pt use WC or Scooter?: No Wheel 50 feet with 2 turns (QC: 9 Wheel 150 feet: 9 PT Plan Problem List Problem List: Activity Tolerance, Functional Strength, Safety, Balance, Gait, Transfer Treatment/Plan Treatment Plan: Continue Plan of Care Treatment Plan: Bed Mobility, Education, Functional Activity Vijay, Functional Strength, Group Therapy, Gait, Safety, Therapeutic Exercise, Transfers Treatment Duration: Jan 14, 2020 Frequency: At least 5 of 7 days/Wk (IRF) Estimated Hrs Per Day: 1.5 hours per day Patient and/or Family Agrees t: Yes Safety Risks/Education Patient Education: Gait Training, Transfer Techniques, Steps, Reviewed Use of Ice, Safety Issues Teaching Recipient: Patient Teaching Methods: Demonstration, Discussion Response to Teaching: Reinforcement Needed Time/GCodes Time In: 0800 Time Out: 0900 Total Billed Treatment Time: 60 Total Billed Treatment 1 visit EX 30' GT 30' TIFFANIE VERA PT Dec 30, 2019 09:00
--- NOTE | 2019-12-30 10:15 | NUR ---
DR. ALVARADO HERE. AWARE OF CONFUSION.
--- NOTE | 2019-12-30 11:34 | Speech Therapy Daily Note ---
Speech Daily Progress Note Subjective Date Seen by Provider: Dec 30, 2019 Time Seen by Provider: 00:30 Patient was sitting in her recliner and watching television. Patient was unable to recall doing exercise with the PT this am. Objective Patient was able to answer simple y/n questions with 75% accuracy. She is confused and has a very limited STM. Assessment Assessment Current Status: Poor Progress Treatment Plan Continue Plan of Care Speech Short Term Goals Short Term Goals Short Term Goals 1) Patient will complete memory tasks related to her daily needs at 80% or greater with minimal cues. 2) Patient will complete safety awareness tasks related to her daily needs at 80% or greater with minimal cues. 3) Patient will complete problem solving tasks related to her daily needs at 80% or greater with minimal cues. Speech Assisted Goals Assisted Goals Patient will improve cognitive-communication necessary for safety and daily living tasks with minimal assist. Speech-Plan Patient/Family Goals Patient/Family Goals: Patient's plans are unknown at this time. Treatment Plan Speech Therapy Treatment Plan: Continue Plan of Care Treatment Duration: Jan 06, 2020 Frequency: 5 times per week Estimated Hrs Per Day: .5 hour per day Rehab Potential: Fair Barriers to Learning: Patient's moderate cognitive deficits/dementia Pt/Family Agrees to Plan: Yes Safety Risks/Education Teaching Recipient: Patient Teaching Methods: Demonstration, Discussion Response to Teaching: Verbalize Understanding, Return Demonstration, Reinforcement Needed Education Topics Provided: Safety and utilization of call light as needed. Time Speech Therapy Time In: 10:30 Speech Therapy Time Out: 11:00 Total Billed Time: 30 Billed Treatment Time 1UGSTAVO [address] Dec 30, 2019 11:33
[2019-12-30] MEDS: ENOXAPARIN 40 MG/0.4 ML (LOVENOX) SYR SC SCH (11:59)
--- NOTE | 2019-12-30 12:00 | NUR ---
LARGE BM THIS AM NOTED PER THERAPY.
--- NOTE | 2019-12-30 12:33 | Cardiology Progress Note ---
Cardiology SOAP Progress Note Subjective: No cardiac complaints. Objective: I&O/Vital Signs 01/02/20 01/02/20 01/02/20 01/02/20 07:47 08:36 13:11 16:11 Temp 36.6 Pulse 76 73 79 Resp 16 B/P (MAP) 124/67 (86) 156/71 (99) 146/75 (98) Pulse Ox 99 O2 Delivery Room Air Room Air 01/02/20 00:00 Intake Total 480 ml Balance 480 ml Weight (Pounds): 119 Weight (Ounces): 9.0 Weight (Calculated Kilograms): [id number] Constitutional: AAO x 3 Respiratory: chest is bilaterally symmetric, lungs clear to auscultation Cardiovascular: regular rate-rhythm, S1 and S2 Gastrointestional: soft Extremities: normal range of motion, non-tender, normal inspection Neurologic/Psychiatric: alert, normal mood/affect, oriented x 3 Skin: normal color, warm/dry Results/Procedures: Labs Laboratory Tests 01/02/20 05:52: White Blood Count 8.7, Red Blood Count 4.33L, Hemoglobin 12.4, Hematocrit 37, Mean Corpuscular Volume 86, Mean Corpuscular Hemoglobin 29, Mean Corpuscular Hemoglobin Concent 34, Red Cell Distribution Width 13.6, Platelet Count 220, Mean Platelet Volume 11.2H, Neutrophils (%) (Auto) 60, Lymphocytes (%) (Auto) 29, Monocytes (%) (Auto) 9, Eosinophils (%) (Auto) 2, Basophils (%) (Auto) 1, Neutrophils # (Auto) 5.2, Lymphocytes # (Auto) 2.5, Monocytes # (Auto) 0.8, Eosinophils # (Auto) 0.2, Basophils # (Auto) 0.0, Sodium Level 137, Potassium Level 3.7, Chloride Level 105, Carbon Dioxide Level 19L, Anion Gap 13, Blood Urea Nitrogen 15, Creatinine 0.93, Estimat Glomerular Filtration Rate 57, BUN/Creatinine Ratio 16, Glucose Level 95, Calcium Level 9.0, Corrected Calcium 9.2, Total Bilirubin 0.6, Aspartate Amino Transf (AST/SGOT) 24, Alanine Aminotransferase (ALT/SGPT) 15, Alkaline Phosphatase 71, Total Protein 6.1L, Albumin 3.7 A/P: Assessment/Dx: CVA CAD HTN HLP COPD Plan: 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 Was outside of window to receive TPA. Improving. Continue to monitor Mild elevation in troponin, no acute EKG changes. Conservative management, continue on aspirin, probably type II [place]. CAD- reported hx of angioplasty over 20 years ago per previous notes that were reviewed. Primary correctional case manager is Dr. Raya in [place]. Hypertension, controlled, continue to monitor. HLP, evaluate lipid profile. Thank you for your consultation. Please call me if you have any questions. Luis Carlos Vigil MD, FACP, FACC, FSCAI, FHRS, CCDS Interventional Cardiology Cardiac Electrophysiology Vascular Medicine and Endovascular Interventions Ramila VIGIL MD Dec 30, 2019 12:33
--- NOTE | 2019-12-30 14:08 | NUR ---
CM/SS ADMISSION Patient was admitted to ARU from [facility] 12/29/19 for CVA. Other comorbidities are, in part, history of previous stroke, COPD, HTN, CAD, aphasia, altered mental status. Visited with patient, then spoke with her sister, Gena García, by phone. Patient resides alone and indications are that she desires to return to that same situation. SLUMS score was 6/30, moderate dementia. Since sister was the only contact lens molder listed, fha underwriter asked patient if she had children. She replied that she did, Hebert and Vesta Scherer, and that they lived in the [facility], same as her. However, when following up with sister Gena, she stated that son Vesta was killed around 18 years old when he was hit by a train and son Hebert in 2015. Patient's spouse Prosper in 2017. Patient apparently has two grandsons, one in [place] and one in [facility]. The grandsons have phone contact periodically but are not able to assist for needs or care. Gena is apparently POA-HC, she resides in [place] about [address] from patient. Her is going to have Sonia e-scan the document to fha underwriter and also mail a copy for our EMR. Gena indicates patient should not be at home alone but that she has continued to insist on residing there. She has neighbors, Malvin and April Pena, who check on her but otherwise no supports. Patient did stay one month at [facility] but moved back home. Gena does not know about patient's finances as to whether she could private pay for alternate living arrangement. Impression is that patient is highly unlikely to agree to a move. PCP: Sandoval Penn MD, [place] PHARMACY: [facility] INSURANCE: Medicare, for Life DME: Difficult to assess with patient, she states she has a walker that her used and no shower chair. Therapy staff to assess for assistive device needs relative to home performance and safety. BARRIER TO DISCHARGE PLAN: Patient cognition is compromised and she refuses to leave her home. She has no available family to provide any meaningful support. At her age and current mental state, a progressive decline would be anticipated. Patient home environment will become less and less safe/appropriate. Sister indicates she is POA healthcare only, this means patient would have to be willing to participate with in-home caregivers or a move to alternate living environment. CONTACTS: Gena García, Sister, RITA-HC (age 77) [address] [place] [address] Patient has a sister age 83 with Alzheimers. Patient indicated understanding of the weekly patient care conference, Gena understood the purpose and process. Patient's first review will be 01/04/20.
--- NOTE | 2019-12-30 14:20 | Physical Therapy Daily Note ---
PT Daily Note-Current Subjective Patient in recliner pre tx, agrees to PT, has no complaints of pain. Patient seems more confused this afternoon. Appearance Patient in recliner post tx with nurse call, phone, tray, chair alarm on. Mental Status Patient Orientation: Person, Confused Transfers SCALE: Activities may be completed with or without assistive devices. 6-Rfwoxuchap-hdefjgo completes the activity by him/herself with no assistance from a helper. 5-Set-up or Clean-up Assistance-helper sets up or cleans up; patient completes activity. Bantam assists only prior to or following the activity. 4-Supervision or Touching Assistance-helper provides verbal cues and/or touching/steadying and/or contact guard assistance as patient completes activity. Assistance may be provided throughout the activity or intermittently. 3-Partial/Moderate Assistance-helper does LESS THAN HALF the effort. Bantam lifts, holds or supports trunk or limbs, but provides less than half the effort. 2-Substantial/Maximal Assistance-helper does MORE THAN HALF the effort. Bantam lifts or holds trunk or limbs and provides more than half the effort. 9-Weylaxtpd-hhjhhh does ALL the effort. Patient does none of the effort to complete the activity. Or, the assistance of 2 or more helpers is required for the patient to complete the activity. If activity was not attempted, code reason: 7-Patient Refused. 9-Not Applicable-not attempted and the patient did not perform the activity before the current illness, exacerbation or injury. 10-Not Attempted due to Environmental Limitations-(lack of equipment, weather restraints, etc.). 88-Not Attempted due to Medical Conditions or Safety Concerns. Sit to Stand (QC): 4 Chair/Lto-oc-Ynwcy Xfer(QC): 4 SBA Gait Training Distance: 400'x2 Walk 10 feet (QC): 4 Walk 50 ft with 2 Turns(QC): 4 Walk 150 ft (QC): 4 Gait Persons Needed: 1 Gait Assistive Device: FWW SBA, slow but steady ambulation Treatments transfers, ambulation Assessment Current Status: Fair Progress Patient more confused, occasional cue for safety or direction. PT Lab Clerk Goals Lab Clerk Goals PT Group Home Goals Time Frame: Jan 14, 2020 Roll Left & Right (QC): 6 Sit to Lying (QC): 6 Lying-Sitting on Side/Bed(QC): 6 Sit to Stand (QC): 6 Chair/Hse-sv-Mlbus Xfer(QC): 6 Toilet Transfer (QC): 6 Car Transfer (QC): 6 Does the Patient Walk: Yes Walk 10 feet (QC): 6 Walk 50ft with 2 Turns (QC): 6 Walk 150 ft (QC): 6 Walking 10ft on Uneven Surface: 6 1 Step (curb) (QC): 6 4 Steps (QC): 6 12 Steps (QC): 6 Picking up an Object (QC): 6 Does the Pt use WC or Scooter?: No Wheel 50 feet with 2 turns (QC: 9 Wheel 150 feet: 9 PT Plan Problem List Problem List: Activity Tolerance, Functional Strength, Safety, Balance, Gait, Transfer, Bed Mobility Treatment/Plan Treatment Plan: Continue Plan of Care Treatment Plan: Bed Mobility, Education, Functional Activity Vijay, Functional Strength, Group Therapy, Gait, Safety, Therapeutic Exercise, Transfers Treatment Duration: Jan 14, 2020 Frequency: At least 5 of 7 days/Wk (IRF) Estimated Hrs Per Day: 1.5 hours per day Patient and/or Family Agrees t: Yes Safety Risks/Education Patient Education: Gait Training, Transfer Techniques, Correct Positioning, Safety Issues Teaching Recipient: Patient Teaching Methods: Demonstration, Discussion Response to Teaching: Reinforcement Needed Time/GCodes Time In: 1400 Time Out: 1415 Total Billed Treatment Time: 15 Total Billed Treatment 1 visit GT 15' TIFFANIE VERA PT Dec 30, 2019 14:20
--- NOTE | 2019-12-30 14:59 | Occupational Ther Daily Note ---
OT Current Status-Daily Note Subjective 0930: Pt seen in recliner chair. Pt oriented to person only. Pt reoriented/ educated on orientation. Pt agrees to showering. Pt states similar statements multiple times through session. 1500: Pt seen in recliner chair, agrees to OT tx session. Pt oriented to person once more. Pt able to state that she lives with , Prosper. Pt states 2 sons, no daughters. Agrees to UE ex while in stance to address UE movement/ strength and balance. Mental Status/Objective Patient Orientation: Person ADL-Treatment Therapy Code Descriptions/Definitions Functional [place] Measure: 0=Not Assessed/NA 4=Minimal Assistance 1=Total Assistance 5=Supervision or Setup 2=Maximal Assistance 6=Modified [place] 3=Moderate Assistance 7=Complete IndependenceSCALE: Activities may be completed with or without assistive devices. 1-Zunlyxcsnj-bjicyxc completes the activity by him/herself with no assistance from a helper. 5-Set-up or Clean-up Assistance-helper sets up or cleans up; patient completes activity. [place] assists only prior to or following the activity. 4-Supervision or Touching Assistance-helper provides verbal cues and/or touching/steadying and/or contact guard assistance as patient completes activity. Assistance may be provided throughout the activity or intermittently. 3-Partial/Moderate Assistance-helper does LESS THAN HALF the effort. [place] lifts, holds or supports trunk or limbs, but provides less than half the effort. 2-Substantial/Maximal Assistance-helper does MORE THAN HALF the effort. [place] lifts or holds trunk or limbs and provides more than half the effort. 8-Dfcyohciq-xcuden does ALL the effort. Patient does none of the effort to complete the activity. Or, the assistance of 2 or more helpers is required for the patient to complete the activity. If activity was not attempted, code reason: 7-Patient Refused. 9-Not Applicable-not attempted and the patient did not perform the activity before the current illness, exacerbation or injury. 10-Not Attempted due to Environmental Limitations-(lack of equipment, weather restraints, etc.). 88-Not Attempted due to Medical Conditions or Safety Concerns. Eating (QC): 6 Oral Hygiene (QC): 7 Bathing Location: L Arm, R Arm, L Upper Leg, R Upper Leg, L Lower Leg (including foot), R Lower Leg (including foot), Chest, Abdomen, Perineal Area Shower/Bathe Self (QC): 3 (min A bottom hygiene and CGA in stance.) Upper Body Dressing (QC): 5 Lower Body Dressing (QC): 4 (SBA while standing.) On/Off Footwear: 4 (SUP while seated.) Toileting Hygiene (QC): 4 (SBA for [place] hygiene.) Toilet Transfer (QC): 4 (SBA, use of walker.) Other Treatment Pt completes ADLs in shower. Pt able to manage, requires CGA-SBA in stance during shower. Pt able to complete with minimal cues for safety, good ability to register when to move on to next body part. When dressing, pt stands to complete LB dressing, contemplates, and states, "I better sit down," to thread LEs. Pt did this 2x during session. Pt able to self-process with increased time. Pt sits at recliner, completes graded clothes pins, requires max cues for orientation and problem solving. Pt able to complete ~7/20 IND without cues. Pt requires 2 hand assist with black (highest grade). Pt sits in recliner, all needs met, call light in reach, chair alarm on. [id number]: Pt stands with SBA. With walker, pt able to stabilize one UE on walker and complete theraband ex with opposite hand to increase UE strength/ endurance and balance in stance. Pt completes bicep curls, back flies, shoulder flexion, shoulder internal rotation. Pt able to complete additional ex without UE support on walker for support. No LOB throughout while in stance. Pt educated on additional finger coordination/ production sorter strength ex with theraputty. Demonstration and return demonstration completed. Pt left in recliner with all needs met, call light in reach, chair alarm on. Education OT Patient Education: Correct positioning, Disease process, Exercise program, Home exercise program, Modified ADL techniques, Purpose of tx/functional activities, Safety issues Teaching Recipient: Patient Teaching Methods: Demonstration, Discussion Response to Teaching: Verbalize Understanding, Return Demonstration OT Short Term Goals Short Term Goals Time Frame: Jan 09, 2020 Lower body dressin Putting on/taking off footwear: 4 OT Social Media Content Manager Goals Longterm Goals Time Frame: Jan 14, 2020 Eating (QC): 6 Oral Hygiene (QC): 6 Toileting Hygiene (QC): 6 Shower/Bathe Self (QC): 6 Upper Body Dressing (QC): 6 Lower Body Dressing (QC): 6 On/Off Footwear (QC): 6 1=Demonstrate adherence to instructed precautions during ADL tasks. 2=Patient will verbalize/demonstrate understanding of assistive devices/modifications for ADL. 3=Patient will improve strength/tolerance for activity to enable patient to perform ADL's. OT Education/Plan Problem List/Assessment Assessment: Decreased Activ Tolerance, Decreased Safety Aware, Decreased UE Strength, Dependent Transfers, Impaired Cognition, Impaired Funct Balance, Impaired I ADL's, Impaired Self-Care Skills Discharge Recommendations Plan/Recommendations: Continue POC Treatment Plan/Plan of Care Treatment,Training & Education: Yes Patient would benefit from OT for education, treatment and training to promote independence in ADL's, mobility, safety and/or upper extremity function for ADL's. Plan of Care: ADL Retraining, Functional Mobility, Group Exercise/Act as Ind, UE Funct Exercise/Act Treatment Duration: Jan 27, 2020 Frequency: At least 5 of 7 days/Wk (IRF) Estimated Hrs Per Day: 1.5 hours per day Rehab Potential: Fair Time/GCodes Start Time: 09:30 (1500) Stop Time: 10:30 (1515) Total Time Billed (hr/min): 75 Billed Treatment Time 1, ADL 3, FA (60) 1, EX (15) Total: 75 min LONNIE PERES OTR Dec 30, 2019 14:59
[2019-12-30 17:02] VITALS: BP 157/76
--- NOTE | 2019-12-30 18:10 | NUR ---
WALKED IN THE HALLS WITH THIS RN USING A FWW AND GAIT BELT FOR SAFETY. TOLERATED WELL.
--- NOTE | 2019-12-30 19:06 | NUR ---
PATIENT PULLED SALINE LOCK OUT. IT WAS SITTING ON THE BEDSIDE TABLE WHEN THIS RN ENTERED THE ROOM. NO BLEEDING NOTED.
[2019-12-30] MEDS: MELATONIN 3 MG TABLET PO PRN (20:01)
[2019-12-30] MEDS: ATENOLOL 50 MG (TENORMIN) TAB PO SCH (20:01)
[2019-12-31 05:07] VITALS: BP 122/67
[2019-12-31] MEDS: hydrALAZINE (APRESOLINE) 25 MG TAB PO SCH ×3 (06:30→21:09)
--- NOTE | 2019-12-31 08:27 | PM&R Progress Note ---
Subjective HPI/CC On Admission Date Seen by Provider: Dec 31, 2019 Time Seen by Provider: 10:00 Subjective/Events-last exam Patient had a good night overall No pain is reported Confusion noted but cleared a bit today compared to yesterday Patient likely had dementia since last hemorrhagic CVA and she was living at home alone Fall risk remains Eating well No O2 at home Nebs and MDI only prn Checked meds and labs Conferred with RN Reviewed therapy notes Review of Systems General: Fatigue Neurological: Weakness, Numbness, Incoordination Objective Exam Vital Signs Vital Signs Date Time Temp Pulse Resp B/P (MAP) Pulse Ox O2 Delivery O2 Flow Rate FiO2 12/31/19 18:13 37.0 76 18 151/73 (99) 99 Room Air Capillary Refill : Less Than 3 Seconds General Appearance: No Apparent Distress, WD/WN, Chronically ill, Thin, Other (frail) HEENT: PERRL/EOMI, Normal ENT Inspection, Pharynx Normal Neck: Full Range of Motion, Normal Inspection, Non Tender, Supple, Carotid Bruit Respiratory: Chest Non Tender, Lungs Clear, No Accessory Muscle Use, No Respiratory Distress, Decreased Breath Sounds Cardiovascular: Regular Rate, Rhythm, No Edema, No Gallop, No JVD, No Murmur, Normal Peripheral Pulses Gastrointestinal: Normal Bowel Sounds, No Organomegaly, No Pulsatile Mass, Non Tender, Soft Back: Normal Inspection, No CVA Tenderness, No Vertebral Tenderness Extremity: Normal Capillary Refill, Normal Inspection, Normal Range of Motion, Non Tender, No Calf Tenderness, No Pedal Edema Neurologic/Psychiatric: Alert, No Motor/Sensory Deficits, Normal Mood/Affect, door manager II-XII Norm as Tested, Abnormal Gait, Aphasia (partial), Depressed Affect, Disoriented, Motor Weakness (4/5 motor weakness of legs) Skin: Normal Color, Warm/Dry Lymphatic: No Adenopathy Results/Procedures Lab Patient resulted labs reviewed. FIM Transfers Therapy Code Descriptions/Definitions Functional [place] Measure: 0=Not Assessed/NA 4=Minimal Assistance 1=Total Assistance 5=Supervision or Setup 2=Maximal Assistance 6=Modified [place] 3=Moderate Assistance 7=Complete IndependenceSCALE: Activities may be completed with or without assistive devices. 1-Bhzxutyrsx-kbuzhtb completes the activity by him/herself with no assistance from a helper. 5-Set-up or Clean-up Assistance-helper sets up or cleans up; patient completes activity. [place] assists only prior to or following the activity. 4-Supervision or Touching Assistance-helper provides verbal cues and/or touching/steadying and/or contact guard assistance as patient completes activity. Assistance may be provided throughout the activity or intermittently. 3-Partial/Moderate Assistance-helper does LESS THAN HALF the effort. [place] lifts, holds or supports trunk or limbs, but provides less than half the effort. 2-Substantial/Maximal Assistance-helper does MORE THAN HALF the effort. [place] lifts or holds trunk or limbs and provides more than half the effort. 6-Vqquerxhb-xnjfyg does ALL the effort. Patient does none of the effort to complete the activity. Or, the assistance of 2 or more helpers is required for the patient to complete the activity. If activity was not attempted, code reason: 7-Patient Refused. 9-Not Applicable-not attempted and the patient did not perform the activity before the current illness, exacerbation or injury. 10-Not Attempted due to Environmental Limitations-(lack of equipment, weather restraints, etc.). 88-Not Attempted due to Medical Conditions or Safety Concerns. Roll Left to Right (QC): 6 Sit to Lying (QC): 6 Sit to Stand (QC): 4 Chair/Ffq-by-Tbjez Xfer(QC): 4 Car Transfer (QC): 5 Gait Training Does the Patient Walk?: Yes Distance: 400'x2 Walk 10 feet (QC): 4 Walk 50 ft with 2 Turns(QC): 4 Walk 150 ft (QC): 4 Walking 10ft/uneven surface-QC: 5 Gait Persons Needed: 1 Gait Assistive Device: FWW Wheelchair Training Does the Pt Use a Wheelchair?: No Wheel 50 ft with 2 turns (QC): 9 Wheel 150 ft (QC): 9 Stair Training Stair Training: Handrails/: 2 handrails #of Steps: 8 1 Step (curb) (QC): 4 4 Steps (QC): 4 12 Steps (QC): 5 Stairs: Pattern: Step to Balance Picking up an Object (QC): 5 ADL-Treatment Eating (QC): 6 Oral Hygiene (QC): 7 Bathing Location: L Arm, R Arm, L Upper Leg, R Upper Leg, L Lower Leg (including foot), R Lower Leg (including foot), Chest, Abdomen, Perineal Area Shower/Bathe Self (QC): 3 (min A bottom hygiene and CGA in stance.) Upper Body Dressing (QC): 5 Lower Body Dressing (QC): 4 (SBA while standing.) On/Off Footwear (QC): 4 (SUP while seated.) Toileting Hygiene (QC): 4 (SBA for [place] hygiene.) Toilet Transfer (QC): 4 (SBA, use of walker.) Assessment/Plan Assessment and Plan Assess & Plan/Chief Complaint Assessment: s/p acute ischemic CVA not a tPA candidate h/o hemorrhagic CVA Confusion acute on chronic? 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
[2019-12-31] MEDS: ASPIRIN E.C. 325 MG (ECOTRIN) TABLET PO SCH (08:54)
[2019-12-31] MEDS: DOCUSATE SODIUM 100 MG (COLACE) CAP PO SCH ×2 (08:54→20:36)
[2019-12-31] MEDS: polyethylene glycoL POWDER 17 GM (MIRALAX) PACK PO SCH ×2 (08:54→20:36)
[2019-12-31] MEDS: lisINopril 20 MG (PRINIVIL) TABLET PO SCH (08:54)
[2019-12-31] MEDS: SENNOSIDES 8.6 MG (SENOKOT) TAB PO SCH ×2 (08:54→20:36)
[2019-12-31 09:00] VITALS: BP 116/74
--- NOTE | 2019-12-31 09:35 | Physical Therapy Daily Note ---
PT Daily Note-Current Subjective Patient in bed pre tx, agrees to PT, no complaints of pain. Appearance Patient in bed post tx with nurse call,phone, tray, all needs met. Bed alarm on. Mental Status Patient Orientation: Person, Confused Transfers SCALE: Activities may be completed with or without assistive devices. 2-Hnxdgzaoda-vibazva completes the activity by him/herself with no assistance from a helper. 5-Set-up or Clean-up Assistance-helper sets up or cleans up; patient completes activity. [place] assists only prior to or following the activity. 4-Supervision or Touching Assistance-helper provides verbal cues and/or touching/steadying and/or contact guard assistance as patient completes activity. Assistance may be provided throughout the activity or intermittently. 3-Partial/Moderate Assistance-helper does LESS THAN HALF the effort. [place] lifts, holds or supports trunk or limbs, but provides less than half the effort. 2-Substantial/Maximal Assistance-helper does MORE THAN HALF the effort. [place] lifts or holds trunk or limbs and provides more than half the effort. 5-Evyghhtxm-ldvaug does ALL the effort. Patient does none of the effort to complete the activity. Or, the assistance of 2 or more helpers is required for the patient to complete the activity. If activity was not attempted, code reason: 7-Patient Refused. 9-Not Applicable-not attempted and the patient did not perform the activity before the current illness, exacerbation or injury. 10-Not Attempted due to Environmental Limitations-(lack of equipment, weather restraints, etc.). 88-Not Attempted due to Medical Conditions or Safety Concerns. Sit to Lying (QC): 3 Lying to Sitting/Side of Bed(Q: 3 Sit to Stand (QC): 4 Chair/Tbu-yz-Michv Xfer(QC): 4 Patient needs min assist with upper body during supine to sit and with one leg during sit to supine. Gait Training Distance: 400'x2 Walk 10 feet (QC): 4 Walk 50 ft with 2 Turns(QC): 4 Walk 150 ft (QC): 4 Gait Assistive Device: FWW SBA, slow but steady ambulation, cues for direction Treatments bed mobility and transfers, ambulation Assessment Current Status: Fair Progress no LOB or unsteadiness during ambulation PT Assisted Living Housekeeper Goals Assisted Living Housekeeper Goals PT Assisted Living Housekeeper Goals Time Frame: Jan 14, 2020 Roll Left & Right (QC): 6 Sit to Lying (QC): 6 Lying-Sitting on Side/Bed(QC): 6 Sit to Stand (QC): 6 Chair/Suh-yz-Dnnoj Xfer(QC): 6 Toilet Transfer (QC): 6 Car Transfer (QC): 6 Does the Patient Walk: Yes Walk 10 feet (QC): 6 Walk 50ft with 2 Turns (QC): 6 Walk 150 ft (QC): 6 Walking 10ft on Uneven Surface: 6 1 Step (curb) (QC): 6 4 Steps (QC): 6 12 Steps (QC): 6 Picking up an Object (QC): 6 Does the Pt use WC or Scooter?: No Wheel 50 feet with 2 turns (QC: 9 Wheel 150 feet: 9 PT Plan Problem List Problem List: Activity Tolerance, Functional Strength, Safety, Balance, Gait, Transfer, Bed Mobility Treatment/Plan Treatment Plan: Continue Plan of Care Treatment Plan: Bed Mobility, Education, Functional Activity Vijay, Functional Strength, Group Therapy, Gait, Safety, Therapeutic Exercise, Transfers Treatment Duration: Jan 14, 2020 Frequency: At least 5 of 7 days/Wk (IRF) Estimated Hrs Per Day: 1.5 hours per day Patient and/or Family Agrees t: Yes Safety Risks/Education Patient Education: Gait Training, Transfer Techniques, Correct Positioning, Safety Issues Teaching Recipient: Patient Teaching Methods: Demonstration, Discussion Response to Teaching: Reinforcement Needed Time/GCodes Time In: 911 Time Out: 929 Total Billed Treatment Time: 18 Total Billed Treatment 1 visit GT 18' TIFFANIE VERA PT Dec 31, 2019 09:35
[2019-12-31] MEDS: ENOXAPARIN 40 MG/0.4 ML (LOVENOX) SYR SC SCH (13:51)
[2019-12-31 18:13] VITALS: BP 151/73
[2019-12-31] MEDS: MELATONIN 3 MG TABLET PO PRN (20:36)
[2019-12-31] MEDS: ATENOLOL 50 MG (TENORMIN) TAB PO SCH (20:36)
[2019-12-31 21:00] VITALS: BP 176/78
--- NOTE | 2019-12-31 21:16 | Cardiology Progress Note ---
Cardiology SOAP Progress Note Subjective: No acute cardiac complaints. Objective: I&O/Vital Signs 01/02/20 01/02/20 01/02/20 01/02/20 07:47 08:36 13:11 16:11 Temp 36.6 Pulse 76 73 79 Resp 16 B/P (MAP) 124/67 (86) 156/71 (99) 146/75 (98) Pulse Ox 99 O2 Delivery Room Air Room Air 01/02/20 00:00 Intake Total 480 ml Balance 480 ml Weight (Pounds): 119 Weight (Ounces): 9.0 Weight (Calculated Kilograms): 54.956092 Constitutional: AAO x 3 Respiratory: chest is bilaterally symmetric, lungs clear to auscultation Cardiovascular: regular rate-rhythm, S1 and S2 Gastrointestional: soft, audible bowel sounds Extremities: normal range of motion, non-tender, normal inspection, no lower extremity edema bilateral Neurologic/Psychiatric: alert, normal mood/affect, oriented x 3 Skin: normal color, warm/dry Results/Procedures: Labs Laboratory Tests 01/02/20 05:52: White Blood Count 8.7, Red Blood Count 4.33L, Hemoglobin 12.4, Hematocrit 37, Mean Corpuscular Volume 86, Mean Corpuscular Hemoglobin 29, Mean Corpuscular Hemoglobin Concent 34, Red Cell Distribution Width 13.6, Platelet Count 220, Mean Platelet Volume 11.2H, Neutrophils (%) (Auto) 60, Lymphocytes (%) (Auto) 29, Monocytes (%) (Auto) 9, Eosinophils (%) (Auto) 2, Basophils (%) (Auto) 1, Neutrophils # (Auto) 5.2, Lymphocytes # (Auto) 2.5, Monocytes # (Auto) 0.8, Eosinophils # (Auto) 0.2, Basophils # (Auto) 0.0, Sodium Level 137, Potassium Level 3.7, Chloride Level 105, Carbon Dioxide Level 19L, Anion Gap 13, Blood Urea Nitrogen 15, Creatinine 0.93, Estimat Glomerular Filtration Rate 57, BUN/Creatinine Ratio 16, Glucose Level 95, Calcium Level 9.0, Corrected Calcium 9.2, Total Bilirubin 0.6, Aspartate Amino Transf (AST/SGOT) 24, Alanine Aminotransferase (ALT/SGPT) 15, Alkaline Phosphatase 71, Total Protein 6.1L, Albumin 3.7 A/P: Assessment/Dx: Stroke, Hypertension, Hyperlipidemia, CAD, COPD Plan: 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 Was outside of window to receive TPA. Improving. Continue to monitor Mild elevation in troponin, no acute EKG changes. Conservative management, continue on aspirin, probably type II OR. CAD- reported hx of angioplasty over 20 years ago per previous notes that were reviewed. Primary stroke belt sander operator is Dr. Raya in [place]. Hypertension, controlled, continue to monitor. HLP, evaluate lipid profile. Thank you for your consultation. Please call me if you have any questions. Luis Carlos Vigil MD, FACP, FACC, FSCAI, FHRS, CCDS Interventional Cardiology Cardiac Electrophysiology Vascular Medicine and Endovascular Interventions Ramila VIGIL MD Dec 31, 2019 21:16
--- NOTE | 2020-01-01 00:01 | NUR ---
Nathaly is an 89 year old female currently inpatient on ARU post CVA. She is currently A&OX2 and denies all pain. Due to orientation/memory issues Nathaly fails to use the call light appropriately and will attempt to ambulate without assistance resulting in the use of bed/chair alarms. She is currently in bed sleeping and denies any needs. She is able to ambulate SBA to min assist with her walker. She has been cont. of bowel and bladder so far this shift. No issues noted during skin check. She did tolerate SCD's well for a short period of time but removed them herself stating "she did not want those." No further issues noted. This nurse will continue to monitor patient throughout shift.
[2020-01-01] MEDS: hydrALAZINE (APRESOLINE) 25 MG TAB PO SCH ×3 (05:48→21:53)
[2020-01-01 05:54] VITALS: BP 156/78
--- NOTE | 2020-01-01 06:23 | PM&R Progress Note ---
Subjective HPI/CC On Admission Date Seen by Provider: Jan 01, 2020 Time Seen by Provider: 10:00 Subjective/Events-last exam Patient had a good night overall No pain is reported Confusion noted and today she thinks she is in [place] and seeing her in the room with her Patient likely had dementia since last hemorrhagic CVA and she was living at home alone Fall risk remains Eating well No O2 at home Nebs and MDI only prn Checked meds and labs Conferred with RN Reviewed therapy notes Review of Systems General: Fatigue Objective Exam Vital Signs Vital Signs Date Time Temp Pulse Resp B/P (MAP) Pulse Ox O2 Delivery O2 Flow Rate FiO2 01/01/20 05:54 36.7 70 18 156/78 (104) 100 Room Air Capillary Refill : Less Than 3 Seconds General Appearance: No Apparent Distress, WD/WN, Chronically ill, Thin, Other (frail) HEENT: PERRL/EOMI, Normal ENT Inspection, Pharynx Normal Neck: Full Range of Motion, Normal Inspection, Non Tender, Supple, Carotid Bruit Respiratory: Chest Non Tender, Lungs Clear, No Accessory Muscle Use, No Respiratory Distress, Decreased Breath Sounds Cardiovascular: Regular Rate, Rhythm, No Edema, No Gallop, No JVD, No Murmur, Normal Peripheral Pulses Gastrointestinal: Normal Bowel Sounds, No Organomegaly, No Pulsatile Mass, Non Tender, Soft Back: Normal Inspection, No CVA Tenderness, No Vertebral Tenderness Extremity: Normal Capillary Refill, Normal Inspection, Normal Range of Motion, Non Tender, No Calf Tenderness, No Pedal Edema Neurologic/Psychiatric: Alert, No Motor/Sensory Deficits, Normal Mood/Affect, mud jack operator II-XII Norm as Tested, Abnormal Gait, Aphasia (partial), Depressed Affect, Disoriented, Motor Weakness (4/5 motor weakness of legs) Skin: Normal Color, Warm/Dry Lymphatic: No Adenopathy Results/Procedures Lab Patient resulted labs reviewed. FIM Transfers Therapy Code Descriptions/Definitions Functional [place] Measure: 0=Not Assessed/NA 4=Minimal Assistance 1=Total Assistance 5=Supervision or Setup 2=Maximal Assistance 6=Modified [place] 3=Moderate Assistance 7=Complete IndependenceSCALE: Activities may be completed with or without assistive devices. 4-Eyjibzsdtm-ophliku completes the activity by him/herself with no assistance from a helper. 5-Set-up or Clean-up Assistance-helper sets up or cleans up; patient completes activity. [place] assists only prior to or following the activity. 4-Supervision or Touching Assistance-helper provides verbal cues and/or touching/steadying and/or contact guard assistance as patient completes activity. Assistance may be provided throughout the activity or intermittently. 3-Partial/Moderate Assistance-helper does LESS THAN HALF the effort. [place] lifts, holds or supports trunk or limbs, but provides less than half the effort. 2-Substantial/Maximal Assistance-helper does MORE THAN HALF the effort. [place] lifts or holds trunk or limbs and provides more than half the effort. 8-Saientyhs-sdnshz does ALL the effort. Patient does none of the effort to complete the activity. Or, the assistance of 2 or more helpers is required for the patient to complete the activity. If activity was not attempted, code reason: 7-Patient Refused. 9-Not Applicable-not attempted and the patient did not perform the activity before the current illness, exacerbation or injury. 10-Not Attempted due to Environmental Limitations-(lack of equipment, weather restraints, etc.). 88-Not Attempted due to Medical Conditions or Safety Concerns. Roll Left to Right (QC): 6 Sit to Lying (QC): 3 Sit to Stand (QC): 4 Chair/Nfw-cx-Cwldk Xfer(QC): 4 Car Transfer (QC): 5 Gait Training Does the Patient Walk?: Yes Distance: 400'x2 Walk 10 feet (QC): 4 Walk 50 ft with 2 Turns(QC): 4 Walk 150 ft (QC): 4 Walking 10ft/uneven surface-QC: 5 Gait Persons Needed: 1 Gait Assistive Device: FWW Wheelchair Training Does the Pt Use a Wheelchair?: No Wheel 50 ft with 2 turns (QC): 9 Wheel 150 ft (QC): 9 Stair Training Stair Training: Handrails/: 2 handrails #of Steps: 8 1 Step (curb) (QC): 4 4 Steps (QC): 4 12 Steps (QC): 5 Stairs: Pattern: Step to Balance Picking up an Object (QC): 5 ADL-Treatment Eating (QC): 6 Oral Hygiene (QC): 7 Bathing Location: L Arm, R Arm, L Upper Leg, R Upper Leg, L Lower Leg (including foot), R Lower Leg (including foot), Chest, Abdomen, Perineal Area Shower/Bathe Self (QC): 3 (min A bottom hygiene and CGA in stance.) Upper Body Dressing (QC): 5 Lower Body Dressing (QC): 4 (SBA while standing.) On/Off Footwear (QC): 4 (SUP while seated.) Toileting Hygiene (QC): 4 (SBA for [place] hygiene.) Toilet Transfer (QC): 4 (SBA, use of walker.) Assessment/Plan Assessment and Plan Assess & Plan/Chief Complaint Assessment: s/p acute ischemic CVA not a tPA candidate h/o hemorrhagic CVA Confusion acute on chronic? 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
[2020-01-01] MEDS: polyethylene glycoL POWDER 17 GM (MIRALAX) PACK PO SCH ×2 (09:00→19:19)
[2020-01-01] MEDS: ASPIRIN E.C. 325 MG (ECOTRIN) TABLET PO SCH (09:27)
[2020-01-01] MEDS: lisINopril 20 MG (PRINIVIL) TABLET PO SCH (09:27)
[2020-01-01] MEDS: SENNOSIDES 8.6 MG (SENOKOT) TAB PO SCH ×2 (09:27→19:32)
[2020-01-01] MEDS: DOCUSATE SODIUM 100 MG (COLACE) CAP PO SCH ×2 (09:27→19:32)
[2020-01-01] MEDS: ENOXAPARIN 40 MG/0.4 ML (LOVENOX) SYR SC SCH (13:37)
[2020-01-01 18:51] VITALS: BP 158/77
[2020-01-01] MEDS: MELATONIN 3 MG TABLET PO PRN (20:06)
[2020-01-01] MEDS: ATENOLOL 50 MG (TENORMIN) TAB PO SCH (20:06)
[2020-01-02 05:04] VITALS: BP 177/73
[2020-01-02 06:05] LABS: BASOPHILS % (AUTO) 1 % (0-10); EOSINOPHILS # (AUTO) 0.2 10^3/uL (0.0-0.3); EOSINOPHILS % (AUTO) 2 % (0-10); HEMATOCRIT 37 % (35-52); HEMOGLOBIN 12.4 G/DL (11.5-16.0); LYMPHOCYTES # (AUTO) 2.5 X 10^3 (1.0-4.0); LYMPHOCYTES % (AUTO) 29 % (12-44); MEAN CORPUSCULAR HEMOGLOBIN 29 PG (25-34); MEAN CORPUSCULAR HGB CONC 34 G/DL (32-36); MEAN CORPUSCULAR VOLUME 86 FL (80-99); MEAN PLATELET VOLUME 11.2 FL (7.4-10.4); MONOCYTES # (AUTO) 0.8 X 10^3 (0.0-1.0); MONOCYTES % (AUTO) 9 % (0-12); NEUTROPHILS # (AUTO) 5.2 X 10^3 (1.8-7.8); NEUTROPHILS % (AUTO) 60 % (42-75); PLATELET COUNT 220 10^3/uL (130-400); RED CELL DISTRIBUTION WIDTH 13.6 % (10.0-14.5); WHITE BLOOD COUNT 8.7 10^3/uL (4.3-11.0)
[2020-01-02] MEDS: hydrALAZINE (APRESOLINE) 25 MG TAB PO SCH ×3 (06:21→21:00)
[2020-01-02 06:23] LABS: ALBUMIN 3.7 GM/DL (3.2-4.5); BILIRUBIN,TOTAL 0.6 MG/DL (0.1-1.0); CREATININE SERUM 0.93 MG/DL (0.60-1.30); POTASSIUM 3.7 MMOL/L (3.6-5.0); TOTAL PROTEIN 6.1 GM/DL (6.4-8.2)
--- NOTE | 2020-01-02 06:44 | PM&R Progress Note ---
Subjective HPI/CC On Admission Date Seen by Provider: Jan 02, 2020 Time Seen by Provider: 10:00 Subjective/Events-last exam Pt appears to be slightly confused today again BP improved 124/67 after Hydralazine Overall doing much better but unsure if her capability of remaining independent at home alone, she could very well benefit from assisted living Fall risk remains Eating well No O2 at home Nebs and MDI only prn Checked meds and labs Conferred with RN Reviewed therapy notes Review of Systems General: Fatigue Neurological: Confusion Objective Exam Vital Signs Vital Signs Date Time Temp Pulse Resp B/P (MAP) Pulse Ox O2 Delivery O2 Flow Rate FiO2 01/03/20 06:18 36.6 70 20 101/60 (74) 97 Room Air Capillary Refill : Less Than 3 Seconds General Appearance: No Apparent Distress, WD/WN, Chronically ill, Thin, Other (frail) HEENT: PERRL/EOMI, Normal ENT Inspection, Pharynx Normal Neck: Full Range of Motion, Normal Inspection, Non Tender, Supple, Carotid Bruit Respiratory: Chest Non Tender, Lungs Clear, No Accessory Muscle Use, No Respiratory Distress, Decreased Breath Sounds Cardiovascular: Regular Rate, Rhythm, No Edema, No Gallop, No JVD, No Murmur, Normal Peripheral Pulses Gastrointestinal: Normal Bowel Sounds, No Organomegaly, No Pulsatile Mass, Non Tender, Soft Back: Normal Inspection, No CVA Tenderness, No Vertebral Tenderness Extremity: Normal Capillary Refill, Normal Inspection, Normal Range of Motion, Non Tender, No Calf Tenderness, No Pedal Edema Neurologic/Psychiatric: Alert, No Motor/Sensory Deficits, Normal Mood/Affect, technical sales representatives II-XII Norm as Tested, Abnormal Gait, Aphasia (partial), Depressed Affect, Disoriented, Motor Weakness (4/5 motor weakness of legs) Skin: Normal Color, Warm/Dry Lymphatic: No Adenopathy Results/Procedures Lab Patient resulted labs reviewed. FIM Transfers Therapy Code Descriptions/Definitions Functional [place] Measure: 0=Not Assessed/NA 4=Minimal Assistance 1=Total Assistance 5=Supervision or Setup 2=Maximal Assistance 6=Modified [place] 3=Moderate Assistance 7=Complete IndependenceSCALE: Activities may be completed with or without assistive devices. 7-Dvagoyapbg-kzmeczp completes the activity by him/herself with no assistance f rom a helper. 5-Set-up or Clean-up Assistance-helper sets up or cleans up; patient completes activity. [place] assists only prior to or following the activity. 4-Supervision or Touching Assistance-helper provides verbal cues and/or touching/steadying and/or contact guard assistance as patient completes activity. Assistance may be provided throughout the activity or intermittently. 3-Partial/Moderate Assistance-helper does LESS THAN HALF the effort. [place] lifts, holds or supports trunk or limbs, but provides less than half the effort. 2-Substantial/Maximal Assistance-helper does MORE THAN HALF the effort. [place] lifts or holds trunk or limbs and provides more than half the effort. 8-Fawaayynn-qhrnym does ALL the effort. Patient does none of the effort to complete the activity. Or, the assistance of 2 or more helpers is required for the patient to complete the activity. If activity was not attempted, code reason: 7-Patient Refused. 9-Not Applicable-not attempted and the patient did not perform the activity before the current illness, exacerbation or injury. 10-Not Attempted due to Environmental Limitations-(lack of equipment, weather restraints, etc.). 88-Not Attempted due to Medical Conditions or Safety Concerns. Roll Left to Right (QC): 6 Sit to Lying (QC): 3 Sit to Stand (QC): 4 Chair/Icx-xr-Vbmch Xfer(QC): 4 Car Transfer (QC): 5 Gait Training Does the Patient Walk?: Yes Distance: 400'x2 Walk 10 feet (QC): 4 Walk 50 ft with 2 Turns(QC): 4 Walk 150 ft (QC): 4 Walking 10ft/uneven surface-QC: 5 Gait Persons Needed: 1 Gait Assistive Device: FWW Wheelchair Training Does the Pt Use a Wheelchair?: No Wheel 50 ft with 2 turns (QC): 9 Wheel 150 ft (QC): 9 Stair Training Stair Training: Handrails/: 2 handrails #of Steps: 8 1 Step (curb) (QC): 4 4 Steps (QC): 4 12 Steps (QC): 5 Stairs: Pattern: Step to Balance Picking up an Object (QC): 5 ADL-Treatment Eating (QC): 6 Oral Hygiene (QC): 7 Bathing Location: L Arm, R Arm, L Upper Leg, R Upper Leg, L Lower Leg (including foot), R Lower Leg (including foot), Chest, Abdomen, Perineal Area Shower/Bathe Self (QC): 3 (min A bottom hygiene and CGA in stance.) Upper Body Dressing (QC): 5 Lower Body Dressing (QC): 4 (SBA while standing.) On/Off Footwear (QC): 4 (SUP while seated.) Toileting Hygiene (QC): 4 (SBA for [place] hygiene.) Toilet Transfer (QC): 4 (SBA, use of walker.) Assessment/Plan Assessment and Plan Assess & Plan/Chief Complaint Assessment: s/p acute ischemic CVA not a tPA candidate h/o hemorrhagic CVA Confusion acute on chronic? Asthma h/o PNA HTN HLP Plan: Monitor BP closely Home meds Lung monitoring IRF protocol Confusion monitoring AL at DC? 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
[2020-01-02] MEDS: lisINopril 20 MG (PRINIVIL) TABLET PO SCH (07:46)
[2020-01-02 07:47] VITALS: BP 124/67
[2020-01-02] MEDS: ASPIRIN E.C. 325 MG (ECOTRIN) TABLET PO SCH (07:47)
[2020-01-02] MEDS: polyethylene glycoL POWDER 17 GM (MIRALAX) PACK PO SCH ×2 (07:47→20:46)
[2020-01-02] MEDS: DOCUSATE SODIUM 100 MG (COLACE) CAP PO SCH ×2 (07:47→20:46)
[2020-01-02] MEDS: SENNOSIDES 8.6 MG (SENOKOT) TAB PO SCH ×2 (07:47→20:46)
--- NOTE | 2020-01-02 09:00 | Cardiology Progress Note ---
Subjective Date Seen by Provider: Jan 02, 2020 Time Seen by Provider: 08:40 Subjective/Events-last exam Patient is sitting up in chair, no new complaints. Denies any chest pain or dyspnea. Objective-Cardiology Exam Last Set of Vital Signs Vital Signs 01/02/20 01/02/20 01/02/20 05:04 08:36 13:11 Temp 37.0 Pulse 73 Resp 18 B/P (MAP) 156/71 (99) Pulse Ox 98 O2 Delivery Room Air Capillary Refill : Less Than 3 Seconds I&O Intake and Output 01/02/20 00:00 Intake Total 600 ml Balance 600 ml Intake Oral 600 ml # Voids 5 # Bowel Movements 2 General: Alert, Oriented X3, Cooperative HEENT: Atraumatic, PERRLA Neck: Supple, No JVD, No Thyromegaly Lungs: Clear to Auscultation, Normal Air Movement Heart: Regular Rate, Normal S1, Normal S2, No Murmurs Abdomen: Normal Bowel Sounds, Soft, No Tenderness, No Hepatosplenomegaly, No Masses Extremities: No Clubbing, No Cyanosis, No Edema, Normal Pulses, No Tenderness/Swelling Skin: No Rashes, No Breakdown, No Significant Lesion Neuro: Normal Speech, Cranial Nerves 3-12 NL Psych/Mental Status: Mental Status NL, Mood NL Results Lab Laboratory Tests 01/02/20 05:52 A/P-Cardiology Admission Diagnosis CVA CAD HTN HLP Assessment/Plan 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 Was outside of window to receive TPA. Improving. Continue to monitor Mild elevation in troponin, no acute EKG changes. Conservative management, continue on aspirin, probably type II ND. CAD- reported hx of angioplasty over 20 years ago per previous notes that were reviewed. Primary wool dyer is Dr. Raya in [place]. I will try to obtain records for further review. Hypertension, controlled, continue to monitor. HLP, evaluate lipid profile. COPD Patient was seen and evaluated by Franca, I reviewed the record in detail, discussed the management plan, no changes are recommended Continue on current medication and continue to monitor blood pressure, noted to be mildly elevated today. Clinical Quality Measures DVT/VTE Risk/Contraindication: Risk Factor Score Per Nursin RFS Level Per Nursing on Admit: 4+=Very High FRANCA PACK Jan 02, 2020 8:59 am [place] TO MD Jan 02, 2020 1:49 pm
--- NOTE | 2020-01-02 10:09 | Physical Therapy Daily Note ---
PT Daily Note-Current Subjective In bathroom w/ Nursing upon arrival. Agrees to therapy after washing hands. Pain Numeric Pain Scale: 0-No Pain Location: No Pain Reported Mental Status Patient Orientation: Person, Confused Transfers SCALE: Activities may be completed with or without assistive devices. 6-Nydkkwewgn-aoxjccd completes the activity by him/herself with no assistance from a helper. 5-Set-up or Clean-up Assistance-helper sets up or cleans up; patient completes activity. [place] assists only prior to or following the activity. 4-Supervision or Touching Assistance-helper provides verbal cues and/or touching/steadying and/or contact guard assistance as patient completes activity. Assistance may be provided throughout the activity or intermittently. 3-Partial/Moderate Assistance-helper does LESS THAN HALF the effort. [place] lifts, holds or supports trunk or limbs, but provides less than half the effort. 2-Substantial/Maximal Assistance-helper does MORE THAN HALF the effort. [place] lifts or holds trunk or limbs and provides more than half the effort. 7-Mqjjvskig-jbvnwb does ALL the effort. Patient does none of the effort to complete the activity. Or, the assistance of 2 or more helpers is required for the patient to complete the activity. If activity was not attempted, code reason: 7-Patient Refused. 9-Not Applicable-not attempted and the patient did not perform the activity before the current illness, exacerbation or injury. 10-Not Attempted due to Environmental Limitations-(lack of equipment, weather restraints, etc.). 88-Not Attempted due to Medical Conditions or Safety Concerns. Gait Training Does the Patient Walk?: Yes Distance: 200' and 350' Walk 10 feet (QC): 4 Walk 50 ft with 2 Turns(QC): 4 Walk 150 ft (QC): 4 Gait Persons Needed: 1 Gait Assistive Device: FWW Slow pace, no LOB during ambulation, [facility] Exercises Seated Therapy Exercises: Ankle pumps, Sit to stand, Long arc quads, Hip flexion Seated Reps: 15 Standing: Hip Abduction, Hamstring curls, Heel/toe raises, Marching, Step-ups Standing Reps: 15 NuStep Minutes: 15 NuStep Workload: 4 Treatments Ambulation, NuStep, Seated and Standing exercises completed. Patient completes all transfers at [facility]. Patient in recliner w/ chair alarm ON, call light and bed side table w/in reach and all needs met at end of tx. Assessment Current Status: Good Progress Patient requires frequent and multiple VC's for correct completion of exercises and to stay on task. PT [facility] Goals Start Up Specialist Goals PT [facility] Goals Time Frame: Jan 14, 2020 Roll Left & Right (QC): 6 Sit to Lying (QC): 6 Lying-Sitting on Side/Bed(QC): 6 Sit to Stand (QC): 6 Chair/Vjx-yo-Eblhf Xfer(QC): 6 Toilet Transfer (QC): 6 Car Transfer (QC): 6 Does the Patient Walk: Yes Walk 10 feet (QC): 6 Walk 50ft with 2 Turns (QC): 6 Walk 150 ft (QC): 6 Walking 10ft on Uneven Surface: 6 1 Step (curb) (QC): 6 4 Steps (QC): 6 12 Steps (QC): 6 Picking up an Object (QC): 6 Does the Pt use WC or Scooter?: No Wheel 50 feet with 2 turns (QC: 9 Wheel 150 feet: 9 PT Plan Problem List Problem List: Functional Strength, Safety, Gait, Transfer Treatment/Plan Treatment Plan: Continue Plan of Care Treatment Plan: Bed Mobility, Education, Functional Activity Vijay, Functional Strength, Group Therapy, Gait, Safety, Therapeutic Exercise, Transfers Treatment Duration: Jan 14, 2020 Frequency: At least 5 of 7 days/Wk (IRF) Estimated Hrs Per Day: 1.5 hours per day Patient and/or Family Agrees t: Yes Safety Risks/Education Patient Education: Gait Training, Correct Positioning, Safety Issues Teaching Recipient: Patient Teaching Methods: Discussion Response to Teaching: Verbalize Understanding, Reinforcement Needed Time/GCodes Time In: 907 Time Out: 1008 Total Billed Treatment Time: 60 Total Billed Treatment 1, GT (15m), EX x3 (45m) AINSLEY KENNEDY CHIEF SUPPLY CHAIN OFFICER Jan 02, 2020 10:09
--- NOTE | 2020-01-02 11:29 | Speech Therapy Daily Note ---
Speech Daily Progress Note Subjective Date Seen by Provider: Jan 02, 2020 Time Seen by Provider: 00:30 Patient was resting in her recliner watching television when I entered her room. Objective Patient answered questions related to her daily needs with 60% with moderate cues. Assessment Assessment Current Status: Fair Progress Treatment Plan Continue Plan of Care Speech Short Term Goals Short Term Goals Short Term Goals 1) Patient will complete memory tasks related to her daily needs at 80% or greater with minimal cues. 2) Patient will complete safety awareness tasks related to her daily needs at 80% or greater with minimal cues. 3) Patient will complete problem solving tasks related to her daily needs at 80% or greater with minimal cues. Speech Correction Goals Correction Goals Patient will improve cognitive-communication necessary for safety and daily living tasks with minimal assist. Speech-Plan Patient/Family Goals Patient/Family Goals: Patient's discharge location is unknown at this time Treatment Plan Speech Therapy Treatment Plan: Continue Plan of Care Treatment Duration: Jan 06, 2020 Frequency: 5 times per week Estimated Hrs Per Day: .5 hour per day Rehab Potential: Fair Barriers to Learning: Patient's moderate to maximum decreased memory Pt/Family Agrees to Plan: Yes Safety Risks/Education Teaching Recipient: Patient Teaching Methods: Demonstration, Discussion Response to Teaching: Verbalize Understanding, Return Demonstration Education Topics Provided: Continued safety within her room and utilization of the call light Time Speech Therapy Time In: 10:30 Speech Therapy Time Out: 11:00 Total Billed Time: 30 Billed Treatment Time 1G[address] Jan 02, 2020 11:29
--- NOTE | 2020-01-02 11:32 | Occupational Ther Daily Note ---
OT Current Status-Daily Note Subjective 0800: Pt seen in recliner this am. Pt denies pain, agrees to OT tx session. Pt oriented to person/ place. 1100: Pt seen in recliner, denies remembering activities/ rules of scanning from this morning. Mental Status/Objective Patient Orientation: Person, Place ADL-Treatment Therapy Code Descriptions/Definitions Functional [place] Measure: 0=Not Assessed/NA 4=Minimal Assistance 1=Total Assistance 5=Supervision or Setup 2=Maximal Assistance 6=Modified [place] 3=Moderate Assistance 7=Complete IndependenceSCALE: Activities may be completed with or without assistive devices. 9-Szvlsxpzmc-oltzotz completes the activity by him/herself with no assistance from a helper. 5-Set-up or Clean-up Assistance-helper sets up or cleans up; patient completes activity. [place] assists only prior to or following the activity. 4-Supervision or Touching Assistance-helper provides verbal cues and/or touching/steadying and/or contact guard assistance as patient completes activity. Assistance may be provided throughout the activity or intermittently. 3-Partial/Moderate Assistance-helper does LESS THAN HALF the effort. [place] lifts, holds or supports trunk or limbs, but provides less than half the effort. 2-Substantial/Maximal Assistance-helper does MORE THAN HALF the effort. [place] lifts or holds trunk or limbs and provides more than half the effort. 4-Ddbcichhj-nfzhyf does ALL the effort. Patient does none of the effort to co mplete the activity. Or, the assistance of 2 or more helpers is required for the patient to complete the activity. If activity was not attempted, code reason: 7-Patient Refused. 9-Not Applicable-not attempted and the patient did not perform the activity before the current illness, exacerbation or injury. 10-Not Attempted due to Environmental Limitations-(lack of equipment, weather restraints, etc.). 88-Not Attempted due to Medical Conditions or Safety Concerns. Eating (QC): 6 Oral Hygiene (QC): 7 Bathing Location: L Arm, R Arm, L Upper Leg, R Upper Leg, L Lower Leg (including foot), R Lower Leg (including foot), Chest, Abdomen, Perineal Area Shower/Bathe Self (QC): 3 (Pt completes in mo, requires min A for bottom hygiene and safety cues (pt stands to complete showering at times, brings LE to sc to wash foot, cues for safety/ sitting)) Upper Body Dressing (QC): 4 (SBA, stance in shower.) Lower Body Dressing (QC): 4 (SBA ) On/Off Footwear: 6 (IND edge of chair.) Toileting Hygiene (QC): 3 (Pt has BM on commode then proceeds to shower, min A in shower. ) Toilet Transfer (QC): 4 (SBA, use of walker.) Other Treatment 9702-3079: Pt oriented to person/ place. Reoriented to time/ situation. Pt sit to stand with SBA, use of toilet/ shower. Pt completes ADLs in shower. Pt transfers with cues for safety with use of grab bars and sitting during tasks. Pt requires min cues throughout. Pt stands at mirror to complete brushing hair. pt returns to sit, pt educated on functional cognition games, completes 5 rounds of tic tac toe with increases in appropriate plays each game. Pt completes visual scanning/ problem solving/ fine motor "perfection" game, requires max cues for 4/5 game pieces. Pt requires consistent cues for visual scanning. Pt left in recliner with chair alarm on, all needs met. 4590-3263: Pt unable to state rules for visual scanning from morning session. Pt reeducated on activity purpose and scanning activity. Pt able to complete remaining /12 without cues, requires max cueing for 2/12 and min cues for 3/12 for scanning/ eliminating. Pt able to remember 1/2 game pieces set aside after ~1 min activity. Pt educated on task and role and continuation of training of functional cognition through rehab. Pt agrees, all needs met, call light in reach, pt's chair alarm on. Education OT Patient Education: Correct positioning, Modified ADL techniques, Progress toward Goal/Update tx plan, Purpose of tx/functional activities, Safety issues Teaching Recipient: Patient Teaching Methods: Demonstration, Discussion Response to Teaching: Verbalize Understanding, Return Demonstration, Unable to Comprehend, Reinforcement Needed OT Short Term Goals Short Term Goals Time Frame: Jan 09, 2020 Lower body dressin Putting on/taking off footwear: 4 OT Custodial Goals [place] Straightened Goals Time Frame: Jan 14, 2020 Eating (QC): 6 Oral Hygiene (QC): 6 Toileting Hygiene (QC): 6 Shower/Bathe Self (QC): 6 Upper Body Dressing (QC): 6 Lower Body Dressing (QC): 6 On/Off Footwear (QC): 6 1=Demonstrate adherence to instructed precautions during ADL tasks. 2=Patient will verbalize/demonstrate understanding of assistive devices/modifications for ADL. 3=Patient will improve strength/tolerance for activity to enable patient to perform ADL's. OT Education/Plan Problem List/Assessment Assessment: Decreased Activ Tolerance, Decreased Safety Aware, Dependent Transfers, Impaired Cognition, Impaired Funct Balance, Impaired I ADL's, Impaired Self-Care Skills Discharge Recommendations Plan/Recommendations: Continue POC Therapy Discharge Recommendati: 24 Hour Supervision, Home & Family Treatment Plan/Plan of Care Treatment,Training & Education: Yes Patient would benefit from OT for education, treatment and training to promote independence in ADL's, mobility, safety and/or upper extremity function for ADL's. Plan of Care: ADL Retraining, Functional Mobility, Group Exercise/Act as Ind, UE Funct Exercise/Act Treatment Duration: Jan 27, 2020 Frequency: At least 5 of 7 days/Wk (IRF) Estimated Hrs Per Day: 1.5 hours per day Rehab Potential: Fair Time/GCodes Start Time: 08:00 (1100) Stop Time: 09:00 (1115) Total Time Billed (hr/min): 75 Billed Treatment Time 1, ADL 3 (45), FA (15)= 60 1, FA (15) Total: 75 LONNIE PERES OTR Jan 02, 2020 11:31
--- NOTE | 2020-01-02 11:34 | Physical Therapy Daily Note ---
PT Daily Note-Current Subjective Patient in recliner upon arrival. Agrees to therapy tx. Pain Numeric Pain Scale: 0-No Pain Location: No Pain Reported Mental Status Patient Orientation: Person, Confused Transfers SCALE: Activities may be completed with or without assistive devices. 1-Vjwyizdsxf-vqsbauz completes the activity by him/herself with no assistance from a helper. 5-Set-up or Clean-up Assistance-helper sets up or cleans up; patient completes activity. [place] assists only prior to or following the activity. 4-Supervision or Touching Assistance-helper provides verbal cues and/or touching/steadying and/or contact guard assistance as patient completes activity. Assistance may be provided throughout the activity or intermittently. 3-Partial/Moderate Assistance-helper does LESS THAN HALF the effort. [place] lifts, holds or supports trunk or limbs, but provides less than half the effort. 2-Substantial/Maximal Assistance-helper does MORE THAN HALF the effort. [place] lifts or holds trunk or limbs and provides more than half the effort. 6-Ehzrwyrzk-pbjeyx does ALL the effort. Patient does none of the effort to complete the activity. Or, the assistance of 2 or more helpers is required for the patient to complete the activity. If activity was not attempted, code reason: 7-Patient Refused. 9-Not Applicable-not attempted and the patient did not perform the activity before the current illness, exacerbation or injury. 10-Not Attempted due to Environmental Limitations-(lack of equipment, weather restraints, etc.). 88-Not Attempted due to Medical Conditions or Safety Concerns. Sit to Stand (QC): 4 Gait Training Does the Patient Walk?: Yes Distance: 500' Gait Persons Needed: 1 Gait Assistive Device: FWW Exercises Seated Therapy Exercises: Sit to stand (15) Treatments Ambulation, exercise. Patient in recliner w/ chair alarm ON, call light and bed side table w/in reach and all needs met at end of tx. Assessment Current Status: Fair Progress Patient requires frequent VC's during ambulation in regards to which way to go. PT Combination Saw Operator Goals Senior Living Goals PT Combination Saw Operator Goals Time Frame: Jan 14, 2020 Roll Left & Right (QC): 6 Sit to Lying (QC): 6 Lying-Sitting on Side/Bed(QC): 6 Sit to Stand (QC): 6 Chair/Wzh-zh-Gcnyp Xfer(QC): 6 Toilet Transfer (QC): 6 Car Transfer (QC): 6 Does the Patient Walk: Yes Walk 10 feet (QC): 6 Walk 50ft with 2 Turns (QC): 6 Walk 150 ft (QC): 6 Walking 10ft on Uneven Surface: 6 1 Step (curb) (QC): 6 4 Steps (QC): 6 12 Steps (QC): 6 Picking up an Object (QC): 6 Does the Pt use WC or Scooter?: No Wheel 50 feet with 2 turns (QC: 9 Wheel 150 feet: 9 PT Plan Problem List Problem List: Activity Tolerance, Functional Strength, Safety, Balance, Gait, Transfer Treatment/Plan Treatment Plan: Continue Plan of Care Treatment Plan: Bed Mobility, Education, Functional Activity Vijay, Functional Strength, Group Therapy, Gait, Safety, Therapeutic Exercise, Transfers Treatment Duration: Jan 14, 2020 Frequency: At least 5 of 7 days/Wk (IRF) Estimated Hrs Per Day: 1.5 hours per day Patient and/or Family Agrees t: Yes Safety Risks/Education Patient Education: Gait Training, Safety Issues Teaching Recipient: Patient Teaching Methods: Discussion Response to Teaching: Verbalize Understanding, Reinforcement Needed Time/GCodes Time In: 1118 Time Out: 1133 Total Billed Treatment Time: 15 Total Billed Treatment 1, GT (15m) AINSLEY KENNEDY ELECTRIC DETECTOR OPERATOR Jan 02, 2020 11:34
[2020-01-02] MEDS: ENOXAPARIN 40 MG/0.4 ML (LOVENOX) SYR SC SCH (12:00)
[2020-01-02 13:11] VITALS: BP 156/71
--- NOTE | 2020-01-02 14:59 | NUR ---
REPORT TO DA DAY.
[2020-01-02 16:11] VITALS: BP 146/75
[2020-01-02] MEDS: MELATONIN 3 MG TABLET PO PRN (20:46)
[2020-01-02] MEDS: ATENOLOL 50 MG (TENORMIN) TAB PO SCH (20:47)
[2020-01-03 06:18] VITALS: BP 101/60
[2020-01-03 06:54] VITALS: BP 103/60
[2020-01-03] MEDS: hydrALAZINE (APRESOLINE) 25 MG TAB PO SCH ×3 (06:55→22:09)
--- NOTE | 2020-01-03 07:14 | PM&R Progress Note ---
Subjective HPI/CC On Admission Date Seen by Provider: Jan 03, 2020 Time Seen by Provider: 11:00 Subjective/Events-last exam Pt appears to be slightly confused today again and we will discuss her DC plan tomorrow given the continued confusion Norvasc that was started by cardiology has been discontinued Monitoring BP closely Pt still confused at times Very poor recall Pt appears to be an assisted-living Pt or even long-term Checked meds and labs Conferred with RN Reviewed therapy notes Review of Systems Neurological: Weakness, Confusion Objective Exam Vital Signs Vital Signs Date Time Temp Pulse Resp B/P (MAP) Pulse Ox O2 Delivery O2 Flow Rate FiO2 01/03/20 17:00 36.8 73 16 146/77 (100) 98 Room Air Capillary Refill : Less Than 3 Seconds General Appearance: No Apparent Distress, WD/WN, Chronically ill, Thin, Other (frail) HEENT: PERRL/EOMI, Normal ENT Inspection, Pharynx Normal Neck: Full Range of Motion, Normal Inspection, Non Tender, Supple, Carotid Bruit Respiratory: Chest Non Tender, Lungs Clear, No Accessory Muscle Use, No Respiratory Distress, Decreased Breath Sounds Cardiovascular: Regular Rate, Rhythm, No Edema, No Gallop, No JVD, No Murmur, Normal Peripheral Pulses Gastrointestinal: Normal Bowel Sounds, No Organomegaly, No Pulsatile Mass, Non Tender, Soft Back: Normal Inspection, No CVA Tenderness, No Vertebral Tenderness Extremity: Normal Capillary Refill, Normal Inspection, Normal Range of Motion, Non Tender, No Calf Tenderness, No Pedal Edema Neurologic/Psychiatric: Alert, No Motor/Sensory Deficits, Normal Mood/Affect, maritime pilot II-XII Norm as Tested, Abnormal Gait, Aphasia (partial), Depressed Affect, Disoriented, Motor Weakness (4/5 motor weakness of legs) Skin: Normal Color, Warm/Dry Lymphatic: No Adenopathy Results/Procedures Lab Patient resulted labs reviewed. FIM Transfers Therapy Code Descriptions/Definitions Functional [place] Measure: 0=Not Assessed/NA 4=Minimal Assistance 1=Total Assistance 5=Supervision or Setup 2=Maximal Assistance 6=Modified [place] 3=Moderate Assistance 7=Complete IndependenceSCALE: Activities may be completed with or without assistive devices. 0-Xxzqdtytng-eeylmir completes the activity by him/herself with no assistance from a helper. 5-Set-up or Clean-up Assistance-helper sets up or cleans up; patient completes activity. [place] assists only prior to or following the activity. 4-Supervision or Touching Assistance-helper provides verbal cues and/or touching/steadying and/or contact guard assistance as patient completes activity. Assistance may be provided throughout the activity or intermittently. 3-Partial/Moderate Assistance-helper does LESS THAN HALF the effort. [place] lifts, holds or supports trunk or limbs, but provides less than half the effort. 2-Substantial/Maximal Assistance-helper does MORE THAN HALF the effort. [place] lifts or holds trunk or limbs and provides more than half the effort. 4-Vfdzucwxo-vdcfgd does ALL the effort. Patient does none of the effort to com plete the activity. Or, the assistance of 2 or more helpers is required for the patient to complete the activity. If activity was not attempted, code reason: 7-Patient Refused. 9-Not Applicable-not attempted and the patient did not perform the activity before the current illness, exacerbation or injury. 10-Not Attempted due to Environmental Limitations-(lack of equipment, weather restraints, etc.). 88-Not Attempted due to Medical Conditions or Safety Concerns. Roll Left to Right (QC): 6 Sit to Lying (QC): 3 Sit to Stand (QC): 4 Chair/Byl-mb-Pkidn Xfer(QC): 4 Car Transfer (QC): 5 Gait Training Does the Patient Walk?: Yes Distance: 500' Walk 10 feet (QC): 4 Walk 50 ft with 2 Turns(QC): 4 Walk 150 ft (QC): 4 Walking 10ft/uneven surface-QC: 5 Gait Persons Needed: 1 Gait Assistive Device: FWW Wheelchair Training Does the Pt Use a Wheelchair?: No Wheel 50 ft with 2 turns (QC): 9 Wheel 150 ft (QC): 9 Stair Training Stair Training: Handrails/: 2 handrails #of Steps: 8 1 Step (curb) (QC): 4 4 Steps (QC): 4 12 Steps (QC): 5 Stairs: Pattern: Step to Balance Picking up an Object (QC): 5 ADL-Treatment Eating (QC): 6 Oral Hygiene (QC): 7 Bathing Location: L Arm, R Arm, L Upper Leg, R Upper Leg, L Lower Leg (including foot), R Lower Leg (including foot), Chest, Abdomen, Perineal Area Shower/Bathe Self (QC): 3 (Pt completes in sc, requires min A for bottom hygiene and safety cues (pt stands to complete showering at times, brings LE to sc to wash foot, cues for safety/ sitting)) Upper Body Dressing (QC): 4 (SBA, stance in shower.) Lower Body Dressing (QC): 4 (SBA ) On/Off Footwear (QC): 6 (IND edge of chair.) Toileting Hygiene (QC): 3 (Pt has BM on commode then proceeds to shower, min A in shower. ) Toilet Transfer (QC): 4 (SBA, use of walker.) Assessment/Plan Assessment and Plan Assess & Plan/Chief Complaint Assessment: s/p acute ischemic CVA not a tPA candidate h/o hemorrhagic CVA Confusion acute on chronic? Asthma h/o PNA HTN HLP Plan: Monitor BP closely Home meds Lung monitoring IRF protocol Confusion monitoring AL at DC? 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
[2020-01-03 08:00] VITALS: BP 96/57
--- NOTE | 2020-01-03 08:28 | Cardiology Progress Note ---
Subjective Date Seen by Provider: Jan 03, 2020 Time Seen by Provider: 08:27 Subjective/Events-last exam Patient was seen at bedside, doing well, still confused, no chest pain Review of Systems General: No Chills, No Night Sweats, No Fatigue, No Malaise, No Appetite, No Other HEENT: No Head Aches, No Visual Changes, No Eye Pain, No Ear Pain, No Dysphasia, No Sinus Congestion, No Post Nasal Drip, No Sore Throat, No Other Pulmonary: No Dyspnea, No Cough, No Pleuritic Chest Pain, No Other Cardiovascular: No: Chest Pain, Palpitations, Orthopnea, Paroxysmal Noc. Dyspnea, Edema, Lt Headedness, Other Objective-Cardiology Exam Last Set of Vital Signs Vital Signs 01/03/20 01/03/20 06:18 06:54 Temp 36.6 Pulse 96 Resp 20 B/P (MAP) 103/60 (74) Pulse Ox 97 O2 Delivery Room Air Capillary Refill : Less Than 3 Seconds I&O Intake and Output 01/03/20 00:00 Intake Total 400 ml Balance 400 ml Intake Oral 400 ml # Voids 7 General: Alert, Oriented X3, Cooperative HEENT: Atraumatic, PERRLA Neck: Supple, No JVD, No Thyromegaly Lungs: Clear to Auscultation, Normal Air Movement Heart: Regular Rate, Normal S1, Normal S2, No Murmurs Abdomen: Normal Bowel Sounds, Soft, No Tenderness, No Hepatosplenomegaly, No Masses Extremities: No Clubbing, No Cyanosis, No Edema, Normal Pulses, No Tenderness/Swelling Skin: No Rashes, No Breakdown, No Significant Lesion Neuro: Normal Speech, Cranial Nerves 3-12 NL Psych/Mental Status: Mood NL A/P-Cardiology Admission Diagnosis CVA CAD HTN HLP Assessment/Plan 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 Was outside of window to receive TPA. Improving. Receiving physical and occupational therapy. Continue to monitor Mild elevation in troponin, no acute EKG changes. Conservative management, continue on aspirin, probably type II [place]. CAD- reported hx of angioplasty over 20 years ago per previous notes that were reviewed. Primary nurse transplant is Dr. Raya in [place]. I will try to obtain records for further review. Hypertension, initially blood pressure was elevated, repeat blood pressure this morning was borderline hypotensive. I was considering adding Norvasc but I will hold it for now and monitor her blood pressure Hyperlipidemia, monitor lipids COPD Clinical Quality Measures DVT/VTE Risk/Contraindication: Risk Factor Score Per Nursin RFS Level Per Nursing on Admit: 4+=Very High PASQUALE TO MD Jan 03, 2020 08:28
[2020-01-03] MEDS: ASPIRIN E.C. 325 MG (ECOTRIN) TABLET PO SCH (08:46)
[2020-01-03] MEDS: polyethylene glycoL POWDER 17 GM (MIRALAX) PACK PO SCH ×2 (08:47→20:28)
[2020-01-03] MEDS: DOCUSATE SODIUM 100 MG (COLACE) CAP PO SCH ×2 (08:47→20:24)
[2020-01-03] MEDS: SENNOSIDES 8.6 MG (SENOKOT) TAB PO SCH ×2 (08:47→20:24)
[2020-01-03] MEDS ORDERED: amLODIPine 5 MG (NORVASC) TAB PO SCH (09:00)
[2020-01-03] MEDS: lisINopril 20 MG (PRINIVIL) TABLET PO SCH (09:00)
--- NOTE | 2020-01-03 09:23 | Occupational Ther Daily Note ---
OT Current Status-Daily Note Subjective Pt sitting in chair, agrees to treatment. Pt denied pain. ADL-Treatment Therapy Code Descriptions/Definitions Functional [place] Measure: 0=Not Assessed/NA 4=Minimal Assistance 1=Total Assistance 5=Supervision or Setup 2=Maximal Assistance 6=Modified [place] 3=Moderate Assistance 7=Complete IndependenceSCALE: Activities may be completed with or without assistive devices. 7-Ocnkhcfrnj-kvapzym completes the activity by him/herself with no assistance from a helper. 5-Set-up or Clean-up Assistance-helper sets up or cleans up; patient completes activity. [place] assists only prior to or following the activity. 4-Supervision or Touching Assistance-helper provides verbal cues and/or touching/steadying and/or contact guard assistance as patient completes activity. Assistance may be provided throughout the activity or intermittently. 3-Partial/Moderate Assistance-helper does LESS THAN HALF the effort. [place] lifts, holds or supports trunk or limbs, but provides less than half the effort. 2-Substantial/Maximal Assistance-helper does MORE THAN HALF the effort. [place] lifts or holds trunk or limbs and provides more than half the effort. 2-Topyidfhf-mhiiam does ALL the effort. Patient does none of the effort to complete the activity. Or, the assistance of 2 or more helpers is required for the patient to complete the activity. If activity was not attempted, code reason: 7-Patient Refused. 9-Not Applicable-not attempted and the patient did not perform the activity before the current illness, exacerbation or injury. 10-Not Attempted due to Environmental Limitations-(lack of equipment, weather restraints, etc.). 88-Not Attempted due to Medical Conditions or Safety Concerns. Oral Hygiene (QC): 4 (Pt brushed teeth while standing at sink. SBA for standing balance and safety.) Shower/Bathe Self (QC): 3 (Bathing completed while seated on shower bench. Pt used hand held shower. Min assist for lower body bathing. Pt requires cues for sequencing and task completion. Pt completed shower transfer with cues for safety) Upper Body Dressing (QC): 5 (Pt doffed shirt without assist. Donned shirt with set up while seated.) Lower Body Dressing (QC): 4 (Pt able to thread bilateral LE into Depends and shorts. Stood with supervision for balance during pant hike) On/Off Footwear: 5 (Pt donned socks with set up while seated.) Toileting Hygiene (QC): 4 (Pt completed toilieting hygiene with supervision ) Toilet Transfer (QC): 4 (SBA for toilet transfer. Cues for safety) Pt completed ADL tasks this morning with increased time. Pt moves slowly and requires cues for safety and task completion. Pt sitting in chair with needs met and chair alarm in place after session. OT Short Term Goals Short Term Goals Time Frame: Jan 09, 2020 Lower body dressin Putting on/taking off footwear: 4 OT Usp Goals Horticultural Farm Manager Goals Time Frame: Jan 14, 2020 Eating (QC): 6 Oral Hygiene (QC): 6 Toileting Hygiene (QC): 6 Shower/Bathe Self (QC): 6 Upper Body Dressing (QC): 6 Lower Body Dressing (QC): 6 On/Off Footwear (QC): 6 1=Demonstrate adherence to instructed precautions during ADL tasks. 2=Patient will verbalize/demonstrate understanding of assistive devices/modifications for ADL. 3=Patient will improve strength/tolerance for activity to enable patient to perform ADL's. OT Education/Plan Discharge Recommendations Plan/Recommendations: Continue POC Treatment Plan/Plan of Care Patient would benefit from OT for education, treatment and training to promote independence in ADL's, mobility, safety and/or upper extremity function for ADL's. Plan of Care: ADL Retraining, Functional Mobility, Group Exercise/Act as Ind, UE Funct Exercise/Act Treatment Duration: Jan 27, 2020 Frequency: At least 5 of 7 days/Wk (IRF) Estimated Hrs Per Day: 1.5 hours per day Rehab Potential: Fair Time/GCodes Start Time: 08:15 Stop Time: 09:15 Total Time Billed (hr/min): 60 Billed Treatment Time 1 visit, ADLx4(60minutes) GABINO SIERRA OT Jan 03, 2020 09:23
--- NOTE | 2020-01-03 10:42 | Physical Therapy Daily Note ---
PT Daily Note-Current Subjective Pt sitting in recliner upon arrival. Pt agrees to PT. Pain Location: No Pain Reported Mental Status Patient Orientation: Person, Place, Situation Transfers SCALE: Activities may be completed with or without assistive devices. 6-Clngatqqhg-esjuexg completes the activity by him/herself with no assistance from a helper. 5-Set-up or Clean-up Assistance-helper sets up or cleans up; patient completes activity. [place] assists only prior to or following the activity. 4-Supervision or Touching Assistance-helper provides verbal cues and/or touching/steadying and/or contact guard assistance as patient completes activity. Assistance may be provided throughout the activity or intermittently. 3-Partial/Moderate Assistance-helper does LESS THAN HALF the effort. [place] lifts, holds or supports trunk or limbs, but provides less than half the effort. 2-Substantial/Maximal Assistance-helper does MORE THAN HALF the effort. [place] lifts or holds trunk or limbs and provides more than half the effort. 1-Brsterzaz-bfxuec does ALL the effort. Patient does none of the effort to complete the activity. Or, the assistance of 2 or more helpers is required for the patient to complete the activity. If activity was not attempted, code reason: 7-Patient Refused. 9-Not Applicable-not attempted and the patient did not perform the activity before the current illness, exacerbation or injury. 10-Not Attempted due to Environmental Limitations-(lack of equipment, weather restraints, etc.). 88-Not Attempted due to Medical Conditions or Safety Concerns. Sit to Stand (QC): 5 Weight Bearing Full Weight Bearing Full Weight Bearing Gait Training Does the Patient Walk?: Yes Distance: 125' x2 Walk 10 feet (QC): 5 Walk 50 ft with 2 Turns(QC): 5 Walk 150 ft (QC): 5 Gait Persons Needed: 1 Gait Assistive Device: FWW Wheelchair Training Does the Pt Use a Wheelchair?: No Exercises Seated Therapy Exercises: Ankle pumps, Long arc quads, Hip flexion, Kicking activity Seated Reps: 20 Standing: Hip Abduction, Hamstring curls, Marching, Mini squats, Sit to Stand, Weight shifts Standing Reps: 15 NuStep Minutes: 10 NuStep Workload: 4 Treatments Pt transfers to standing then ambulates in hallway. Pt uses NuStep for 10m at WL 4 then short RB. Pt completes Seated and Standing Ex at //bars. Pt again ambulates in hallway before returning to room to rest in recliner with all needs met, call light in hand. Assessment Current Status: Fair Progress Pt needs VC to use arm rest of chair instead of pulling on FWW. Pt needs encouragement because pt doesn't show much initiation. PT Half-Way Goals Seconds Grader Goals PT Seconds Grader Goals Time Frame: Jan 14, 2020 Roll Left & Right (QC): 6 Sit to Lying (QC): 6 Lying-Sitting on Side/Bed(QC): 6 Sit to Stand (QC): 6 Chair/Mzi-kx-Coizd Xfer(QC): 6 Toilet Transfer (QC): 6 Car Transfer (QC): 6 Does the Patient Walk: Yes Walk 10 feet (QC): 6 Walk 50ft with 2 Turns (QC): 6 Walk 150 ft (QC): 6 Walking 10ft on Uneven Surface: 6 1 Step (curb) (QC): 6 4 Steps (QC): 6 12 Steps (QC): 6 Picking up an Object (QC): 6 Does the Pt use WC or Scooter?: No Wheel 50 feet with 2 turns (QC: 9 Wheel 150 feet: 9 PT Plan Problem List Problem List: Activity Tolerance, Safety Treatment/Plan Treatment Plan: Continue Plan of Care Treatment Plan: Bed Mobility, Education, Functional Activity Vijay, Functional Strength, Group Therapy, Gait, Safety, Therapeutic Exercise, Transfers Treatment Duration: Jan 14, 2020 Frequency: At least 5 of 7 days/Wk (IRF) Estimated Hrs Per Day: 1.5 hours per day Patient and/or Family Agrees t: Yes Safety Risks/Education Patient Education: Gait Training, Transfer Techniques, Correct Positioning, Safety Issues Teaching Recipient: Patient Teaching Methods: Discussion Response to Teaching: Verbalize Understanding Time/GCodes Time In: 915 Time Out: 1015 Total Billed Treatment Time: 60 Total Billed Treatment 1, GT (20m) & EX x3 (40m) CHUY RUGGIERO MUNICIPAL BOND TRADER Jan 03, 2020 10:42
--- NOTE | 2020-01-03 11:30 | Physical Therapy Daily Note ---
PT Daily Note-Current Subjective Pt sitting in recliner upon arrival. Pt agrees to PT. Pain Location: No Pain Reported Mental Status Patient Orientation: Person, Place, Situation Transfers SCALE: Activities may be completed with or without assistive devices. 1-Whcmbixlki-typelvi completes the activity by him/herself with no assistance from a helper. 5-Set-up or Clean-up Assistance-helper sets up or cleans up; patient completes activity. [place] assists only prior to or following the activity. 4-Supervision or Touching Assistance-helper provides verbal cues and/or touching/steadying and/or contact guard assistance as patient completes activity. Assistance may be provided throughout the activity or intermittently. 3-Partial/Moderate Assistance-helper does LESS THAN HALF the effort. [place] lifts, holds or supports trunk or limbs, but provides less than half the effort. 2-Substantial/Maximal Assistance-helper does MORE THAN HALF the effort. [place] lifts or holds trunk or limbs and provides more than half the effort. 0-Kzbfrgxyv-jxmiyl does ALL the effort. Patient does none of the effort to complete the activity. Or, the assistance of 2 or more helpers is required for the patient to complete the activity. If activity was not attempted, code reason: 7-Patient Refused. 9-Not Applicable-not attempted and the patient did not perform the activity before the current illness, exacerbation or injury. 10-Not Attempted due to Environmental Limitations-(lack of equipment, weather restraints, etc.). 88-Not Attempted due to Medical Conditions or Safety Concerns. Weight Bearing Full Weight Bearing Full Weight Bearing Exercises Seated Therapy Exercises: Ankle pumps, Long arc quads, Hip flexion, Kicking activity, Glut set Seated Reps: 15 Treatments Pt completes Seated Ex in chair. Pt resting at end of Rx with all needs met, call light in hand. Assessment Current Status: Good Progress Pt tolerated Rx well. PT Manager Field Sales Goals Manager Field Sales Goals PT Prison Goals Time Frame: Jan 14, 2020 Roll Left & Right (QC): 6 Sit to Lying (QC): 6 Lying-Sitting on Side/Bed(QC): 6 Sit to Stand (QC): 6 Chair/Mds-uk-Wynzj Xfer(QC): 6 Toilet Transfer (QC): 6 Car Transfer (QC): 6 Does the Patient Walk: Yes Walk 10 feet (QC): 6 Walk 50ft with 2 Turns (QC): 6 Walk 150 ft (QC): 6 Walking 10ft on Uneven Surface: 6 1 Step (curb) (QC): 6 4 Steps (QC): 6 12 Steps (QC): 6 Picking up an Object (QC): 6 Does the Pt use WC or Scooter?: No Wheel 50 feet with 2 turns (QC: 9 Wheel 150 feet: 9 PT Plan Problem List Problem List: Activity Tolerance Treatment/Plan Treatment Plan: Continue Plan of Care Treatment Plan: Bed Mobility, Education, Functional Activity Vijay, Functional Strength, Group Therapy, Gait, Safety, Therapeutic Exercise, Transfers Treatment Duration: Jan 14, 2020 Frequency: At least 5 of 7 days/Wk (IRF) Estimated Hrs Per Day: 1.5 hours per day Patient and/or Family Agrees t: Yes Safety Risks/Education Patient Education: Correct Positioning, Safety Issues Teaching Recipient: Patient Teaching Methods: Discussion Response to Teaching: Verbalize Understanding Time/GCodes Time In: 1115 Time Out: 1130 Total Billed Treatment Time: 15 Total Billed Treatment 1, EX (15m) CHUY RUGGIERO SUPERVISOR PIPE JOINTS Jan 03, 2020 11:30
--- NOTE | 2020-01-03 11:47 | Occupational Ther Daily Note ---
OT Current Status-Daily Note Subjective Pt sitting in chair, agrees to therapy. ADL-Treatment Therapy Code Descriptions/Definitions Functional [place] Measure: 0=Not Assessed/NA 4=Minimal Assistance 1=Total Assistance 5=Supervision or Setup 2=Maximal Assistance 6=Modified [place] 3=Moderate Assistance 7=Complete IndependenceSCALE: Activities may be completed with or without assistive devices. 2-Ejtdbjqvsl-pwmpfpi completes the activity by him/herself with no assistance from a helper. 5-Set-up or Clean-up Assistance-helper sets up or cleans up; patient completes activity. [place] assists only prior to or following the activity. 4-Supervision or Touching Assistance-helper provides verbal cues and/or touching/steadying and/or contact guard assistance as patient completes activity. Assistance may be provided throughout the activity or intermittently. 3-Partial/Moderate Assistance-helper does LESS THAN HALF the effort. [place] lifts, holds or supports trunk or limbs, but provides less than half the effort. 2-Substantial/Maximal Assistance-helper does MORE THAN HALF the effort. [place] lifts or holds trunk or limbs and provides more than half the effort. 6-Vqzqragbc-eaodrb does ALL the effort. Patient does none of the effort to c omplete the activity. Or, the assistance of 2 or more helpers is required for the patient to complete the activity. If activity was not attempted, code reason: 7-Patient Refused. 9-Not Applicable-not attempted and the patient did not perform the activity before the current illness, exacerbation or injury. 10-Not Attempted due to Environmental Limitations-(lack of equipment, weather restraints, etc.). 88-Not Attempted due to Medical Conditions or Safety Concerns. Other Treatment Pt completed fine motor task with bilateral UE while seated to increase coordination/manipulation skills needed for functional tasks. Pt able to complete task with increased time and cues for task completion. Putty activity with bilateral hands to increase strength and manipulation. Pt able to remove small beads from minimal resistance therapy putty. Pt sitting in chair with needs met and chair alarm on after session. OT Short Term Goals Short Term Goals Time Frame: Jan 09, 2020 Lower body dressin Putting on/taking off footwear: 4 OT Top Precipitator Operator Goals Retirement Goals Time Frame: Jan 14, 2020 Eating (QC): 6 Oral Hygiene (QC): 6 Toileting Hygiene (QC): 6 Shower/Bathe Self (QC): 6 Upper Body Dressing (QC): 6 Lower Body Dressing (QC): 6 On/Off Footwear (QC): 6 1=Demonstrate adherence to instructed precautions during ADL tasks. 2=Patient will verbalize/demonstrate understanding of assistive devices/modifications for ADL. 3=Patient will improve strength/tolerance for activity to enable patient to perform ADL's. OT Education/Plan Discharge Recommendations Plan/Recommendations: Continue POC Treatment Plan/Plan of Care Patient would benefit from OT for education, treatment and training to promote independence in ADL's, mobility, safety and/or upper extremity function for ADL's. Plan of Care: ADL Retraining, Functional Mobility, Group Exercise/Act as Ind, UE Funct Exercise/Act Treatment Duration: Jan 27, 2020 Frequency: At least 5 of 7 days/Wk (IRF) Estimated Hrs Per Day: 1.5 hours per day Rehab Potential: Fair Time/GCodes Start Time: 11:30 Stop Time: 11:45 Total Time Billed (hr/min): 15 Billed Treatment Time 1 visit, FA(15minutes) GABINO SIERRA OT Jan 03, 2020 11:47
--- NOTE | 2020-01-03 11:55 | Speech Therapy Daily Note ---
Speech Daily Progress Note Subjective Date Seen by Provider: Jan 03, 2020 Time Seen by Provider: 00:30 Patient was resting in her chair following PT session when I entered her room. Objective Patient followed 1-step directions for simple tasks related to her daily needs with 75% given moderate cues and/or repetitions. Assessment Assessment Current Status: Fair Progress Treatment Plan Continue Plan of Care Speech Short Term Goals Short Term Goals Short Term Goals 1) Patient will complete memory tasks related to her daily needs at 80% or greater with minimal cues. 2) Patient will complete safety awareness tasks related to her daily needs at 80% or greater with minimal cues. 3) Patient will complete problem solving tasks related to her daily needs at 80% or greater with minimal cues. Speech Printed Circuit Board Preassembler Goals Correction Goals Patient will improve cognitive-communication necessary for safety and daily living tasks with minimal assist. Speech-Plan Patient/Family Goals Patient/Family Goals: Patient's plan at discharge is unknown at this time. Treatment Plan Speech Therapy Treatment Plan: Continue Plan of Care Treatment Duration: Jan 06, 2020 Frequency: 5 times per week Estimated Hrs Per Day: .5 hour per day Rehab Potential: Fair Barriers to Learning: Patient's moderate dementia, decreased retention of information <5 minutes Pt/Family Agrees to Plan: Yes Safety Risks/Education Teaching Recipient: Patient Teaching Methods: Demonstration, Discussion Response to Teaching: Verbalize Understanding, Return Demonstration Education Topics Provided: Continued safety within her room and utilization of the call light as needed Time Speech Therapy Time In: 10:30 Speech Therapy Time Out: 11:00 Total Billed Time: 30 Billed Treatment Time 1, HERNANDEZ Cummings Jan 03, 2020 11:55
[2020-01-03] MEDS: ENOXAPARIN 40 MG/0.4 ML (LOVENOX) SYR SC SCH (13:58)
[2020-01-03 17:00] VITALS: BP 146/77
--- NOTE | 2020-01-03 19:16 | NUR ---
bedside report received from TOBIN ROBERSON, assume care of pt
[2020-01-03 20:20] VITALS: BP 135/76
[2020-01-03] MEDS: MELATONIN 3 MG TABLET PO PRN (20:24)
[2020-01-03] MEDS: ATENOLOL 50 MG (TENORMIN) TAB PO SCH (20:24)
--- NOTE | 2020-01-03 20:24 | NUR ---
pt took Colace & Senokot & refused miralax, pt confused tried to re orient pt but can not retain info but for short terms, chair & bed alarm on
[2020-01-03 22:09] VITALS: BP 138/74
[2020-01-04 05:59] LABS: TRIGLYCERIDES 78 MG/DL (<150); VLDL CHOLESTEROL 16 MG/DL (5-40)
[2020-01-04 06:00] VITALS: BP 149/70
[2020-01-04 06:04] LABS: CHOLESTEROL 106 MG/DL (< 200)
[2020-01-04 06:05] LABS: HDL CHOLESTEROL 36 MG/DL (40-60)
[2020-01-04] MEDS: hydrALAZINE (APRESOLINE) 25 MG TAB PO SCH ×3 (06:14→22:12)
[2020-01-04 08:00] VITALS: BP 125/71
--- NOTE | 2020-01-04 08:40 | Cardiology Progress Note ---
Subjective Date Seen by Provider: Jan 04, 2020 Time Seen by Provider: 08:37 Subjective/Events-last exam Patient is with PT, no new complaints. Denies any chest pain or dyspnea. Review of Systems General: No Chills, No Night Sweats, No Fatigue, No Malaise, No Appetite, No Ot her HEENT: No Head Aches, No Visual Changes, No Eye Pain, No Ear Pain, No Dysphasia, No Sinus Congestion, No Post Nasal Drip, No Sore Throat, No Other Pulmonary: No Dyspnea, No Cough, No Pleuritic Chest Pain, No Other Cardiovascular: No: Chest Pain, Palpitations, Orthopnea, Paroxysmal Noc. Dyspnea, Edema, Lt Headedness, Other Objective-Cardiology Exam Last Set of Vital Signs Vital Signs 01/04/20 01/04/20 06:00 09:31 Temp 36.7 Pulse 68 Resp 16 B/P (MAP) 149/70 (96) Pulse Ox 96 O2 Delivery Room Air Capillary Refill : Less Than 3 Seconds I&O Intake and Output 01/04/20 00:00 Intake Total 780 ml Balance 780 ml Intake Oral 780 ml # Voids 6 General: Alert, Oriented X3, Cooperative HEENT: Atraumatic, PERRLA Neck: Supple, No JVD, No Thyromegaly Lungs: Clear to Auscultation, Normal Air Movement Heart: Regular Rate, Normal S1, Normal S2, No Murmurs Abdomen: Normal Bowel Sounds, Soft, No Tenderness, No Hepatosplenomegaly, No Masses Extremities: No Clubbing, No Cyanosis, No Edema, Normal Pulses, No Tenderness/Swelling Skin: No Rashes, No Breakdown, No Significant Lesion Neuro: Normal Speech, Cranial Nerves 3-12 NL Psych/Mental Status: Mood NL A/P-Cardiology Admission Diagnosis CVA CAD HTN HLP Assessment/Plan 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 Was outside of window to receive TPA. Improving. Receiving physical and occupational therapy. Continue to monitor Mild elevation in troponin, no acute EKG changes. 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 CAD- reported hx of angioplasty over 20 years ago per previous notes that were reviewed. Primary tube drawing supervisor is Dr. Raya in [place]. I will try to obtain records for further review. Hypertension, better controlled. Continue to monitor. Hyperlipidemia, monitor lipids COPD Patient was seen and evaluated with Franca, examination performed, management plan was discussed, agree with the current scribed note, I made few changes to the note using Italic font Patient was sitting in a chair, eating lunch. Feeling well. No new complaint. Denied any chest pain or shortness of breath Recovering well, receiving therapy Clinical Quality Measures DVT/VTE Risk/Contraindication: Risk Factor Score Per Nursin RFS Level Per Nursing on Admit: 4+=Very High FRANCA PACK Jan 04, 2020 8:40 am PASQUALE TO MD Jan 04, 2020 12:57 pm
[2020-01-04] MEDS: polyethylene glycoL POWDER 17 GM (MIRALAX) PACK PO SCH ×2 (09:13→20:52)
[2020-01-04] MEDS: SENNOSIDES 8.6 MG (SENOKOT) TAB PO SCH ×2 (09:16→20:44)
[2020-01-04] MEDS: DOCUSATE SODIUM 100 MG (COLACE) CAP PO SCH ×2 (09:16→20:44)
[2020-01-04] MEDS: lisINopril 20 MG (PRINIVIL) TABLET PO SCH (09:16)
[2020-01-04] MEDS: ASPIRIN E.C. 325 MG (ECOTRIN) TABLET PO SCH (09:16)
--- NOTE | 2020-01-04 09:21 | Occupational Ther Daily Note ---
OT Current Status-Daily Note Subjective Pt sitting in chair, agrees to therapy. Pt has no reports of pain. ADL-Treatment Pt declined shower today. Requests to use restroom. Sit to stand with supervisio n. Gait to restroom with FWW and cues for walker use. Transfer to toilet with supervision. Pt able to complete toileting hygiene and clothing management with SBA. Pt stood at sink to wash hands, brush teeth, and comb hair with SBA. Pt transferred to chair with SBA. Pt able to thread bilateral LE into shorts. Stood with supervision for balance during pant hike. Pt moves slowly and requires increased time for ADL tasks. Therapy Code Descriptions/Definitions Functional [place] Measure: 0=Not Assessed/NA 4=Minimal Assistance 1=Total Assistance 5=Supervision or Setup 2=Maximal Assistance 6=Modified [place] 3=Moderate Assistance 7=Complete IndependenceSCALE: Activities may be completed with or without assistive devices. 7-Wbepzzlvuo-tnxbcza completes the activity by him/herself with no assistance from a helper. 5-Set-up or Clean-up Assistance-helper sets up or cleans up; patient completes activity. [place] assists only prior to or following the activity. 4-Supervision or Touching Assistance-helper provides verbal cues and/or to uching/steadying and/or contact guard assistance as patient completes activity. Assistance may be provided throughout the activity or intermittently. 3-Partial/Moderate Assistance-helper does LESS THAN HALF the effort. [place] lifts, holds or supports trunk or limbs, but provides less than half the effort. 2-Substantial/Maximal Assistance-helper does MORE THAN HALF the effort. [place] lifts or holds trunk or limbs and provides more than half the effort. 6-Fmixbapho-drssfs does ALL the effort. Patient does none of the effort to complete the activity. Or, the assistance of 2 or more helpers is required for the patient to complete the activity. If activity was not attempted, code reason: 7-Patient Refused. 9-Not Applicable-not attempted and the patient did not perform the activity before the current illness, exacerbation or injury. 10-Not Attempted due to Environmental Limitations-(lack of equipment, weather restraints, etc.). 88-Not Attempted due to Medical Conditions or Safety Concerns. Oral Hygiene (QC): 4 Lower Body Dressing (QC): 4 Toileting Hygiene (QC): 4 Toilet Transfer (QC): 4 Other Treatment Gait to therapy gym with FWW, slow pace and cues for safety. Pt completed graded clothespin activity with bilateral hands to increase bloom conveyor operator/pinch strength for functional tasks. Pt has difficulty with higher resistance clothespins, requires increased time to complete task. Pt completed resistance peg activity with bilateral hands to increase coordination/manipulation skills. Pt returned to room, sitting in chair with needs met and chair alarm on after session. OT Short Term Goals Short Term Goals Time Frame: Jan 09, 2020 Lower body dressin Putting on/taking off footwear: 4 OT Mcc Goals Rn Medication Goals Time Frame: Jan 14, 2020 Eating (QC): 6 Oral Hygiene (QC): 6 Toileting Hygiene (QC): 6 Shower/Bathe Self (QC): 6 Upper Body Dressing (QC): 6 Lower Body Dressing (QC): 6 On/Off Footwear (QC): 6 1=Demonstrate adherence to instructed precautions during ADL tasks. 2=Patient will verbalize/demonstrate understanding of assistive devices/modifications for ADL. 3=Patient will improve strength/tolerance for activity to enable patient to perform ADL's. OT Education/Plan Discharge Recommendations Plan/Recommendations: Continue POC Treatment Plan/Plan of Care Patient would benefit from OT for education, treatment and training to promote independence in ADL's, mobility, safety and/or upper extremity function for ADL's. Plan of Care: ADL Retraining, Functional Mobility, Group Exercise/Act as Ind, UE Funct Exercise/Act Treatment Duration: Jan 27, 2020 Frequency: At least 5 of 7 days/Wk (IRF) Estimated Hrs Per Day: 1.5 hours per day Rehab Potential: Fair Time/GCodes Start Time: 08:15 Stop Time: 09:15 Total Time Billed (hr/min): 60 Billed Treatment Time 1 visit, ADLx2(30minutes), EXx2(30minutes) GABINO SIERRA OT Jan 04, 2020 09:21
--- NOTE | 2020-01-04 10:19 | Physical Therapy Daily Note ---
PT Daily Note-Current Subjective Pt sitting in recliner upon arrival. Pt agrees to PT. Pain Location: No Pain Reported Mental Status Patient Orientation: Person, Place, Situation Transfers SCALE: Activities may be completed with or without assistive devices. 3-Twtjxyhsjh-eoaxjrs completes the activity by him/herself with no assistance from a helper. 5-Set-up or Clean-up Assistance-helper sets up or cleans up; patient completes activity. [place] assists only prior to or following the activity. 4-Supervision or Touching Assistance-helper provides verbal cues and/or touching/steadying and/or contact guard assistance as patient completes activity. Assistance may be provided throughout the activity or intermittently. 3-Partial/Moderate Assistance-helper does LESS THAN HALF the effort. [place] lifts, holds or supports trunk or limbs, but provides less than half the effort. 2-Substantial/Maximal Assistance-helper does MORE THAN HALF the effort. [place] lifts or holds trunk or limbs and provides more than half the effort. 6-Sdvslxgve-wyyulx does ALL the effort. Patient does none of the effort to complete the activity. Or, the assistance of 2 or more helpers is required for the patient to complete the activity. If activity was not attempted, code reason: 7-Patient Refused. 9-Not Applicable-not attempted and the patient did not perform the activity before the current illness, exacerbation or injury. 10-Not Attempted due to Environmental Limitations-(lack of equipment, weather restraints, etc.). 88-Not Attempted due to Medical Conditions or Safety Concerns. Sit to Stand (QC): 5 Weight Bearing Full Weight Bearing Full Weight Bearing Gait Training Does the Patient Walk?: Yes Distance: 150' x2 Walk 10 feet (QC): 5 Walk 50 ft with 2 Turns(QC): 5 Walk 150 ft (QC): 5 Gait Persons Needed: 1 Gait Assistive Device: FWW Wheelchair Training Does the Pt Use a Wheelchair?: No Stair Training Stair Training: Handrails/: 2 handrails #of Steps: 4 1 Step (curb) (QC): 5 4 Steps (QC): 5 Stairs: Pattern: Step to Ascending stairs was reciprocal gait but descending was step to gait pattern. Exercises Seated Therapy Exercises: Ankle pumps, Long arc quads, Hip flexion, Kicking activity, Hip abd/add, Glut set Seated Reps: 15 NuStep Minutes: 10 NuStep Workload: 4 Treatments Pt transfers to standing and ambulates in hallway. Pt uses NuStep for 10m at WL 4, short RB followed by ambulating 1 set of 4 steps. Pt takes RB then completes Seated Ex before ambulating in hallway and returning to room. Pt resting in recliner with all needs met. Pt declines need for restroom and has call light in hand. Assessment Current Status: Good Progress Pt needs VC especially with directions and turning. Pt reports vision has decreased since CVA. DISPUTE COORDINATOR advises need for Eye Dr appt. PT Penitentiary Goals Penitentiary Goals PT [place] Molder Goals Time Frame: Jan 14, 2020 Roll Left & Right (QC): 6 Sit to Lying (QC): 6 Lying-Sitting on Side/Bed(QC): 6 Sit to Stand (QC): 6 Chair/Gmi-gw-Zonls Xfer(QC): 6 Toilet Transfer (QC): 6 Car Transfer (QC): 6 Does the Patient Walk: Yes Walk 10 feet (QC): 6 Walk 50ft with 2 Turns (QC): 6 Walk 150 ft (QC): 6 Walking 10ft on Uneven Surface: 6 1 Step (curb) (QC): 6 4 Steps (QC): 6 12 Steps (QC): 6 Picking up an Object (QC): 6 Does the Pt use WC or Scooter?: No Wheel 50 feet with 2 turns (QC: 9 Wheel 150 feet: 9 PT Plan Problem List Problem List: Activity Tolerance, Safety Treatment/Plan Treatment Plan: Continue Plan of Care Treatment Plan: Bed Mobility, Education, Functional Activity Vijay, Functional Strength, Group Therapy, Gait, Safety, Therapeutic Exercise, Transfers Treatment Duration: Jan 14, 2020 Frequency: At least 5 of 7 days/Wk (IRF) Estimated Hrs Per Day: 1.5 hours per day Patient and/or Family Agrees t: Yes Safety Risks/Education Patient Education: Transfer Techniques, Steps, Correct Positioning, Safety Issues Teaching Recipient: Patient Teaching Methods: Discussion Response to Teaching: Verbalize Understanding Time/GCodes Time In: 915 Time Out: 1015 Total Billed Treatment Time: 60 Total Billed Treatment 1, GT (15m), FA (15m) & EX x2 (30m) CHUY RUGGIERO DISPUTE COORDINATOR Jan 04, 2020 10:19
--- NOTE | 2020-01-04 11:16 | Occupational Ther Daily Note ---
OT Current Status-Daily Note Subjective Pt sitting in chair, agrees to therapy. ADL-Treatment Therapy Code Descriptions/Definitions Functional [place] Measure: 0=Not Assessed/NA 4=Minimal Assistance 1=Total Assistance 5=Supervision or Setup 2=Maximal Assistance 6=Modified [place] 3=Moderate Assistance 7=Complete IndependenceSCALE: Activities may be completed with or without assistive devices. 6-Iftjlhjhzs-hjyqcug completes the activity by him/herself with no assistance from a helper. 5-Set-up or Clean-up Assistance-helper sets up or cleans up; patient completes activity. [place] assists only prior to or following the activity. 4-Supervision or Touching Assistance-helper provides verbal cues and/or touching/steadying and/or contact guard assistance as patient completes activity. Assistance may be provided throughout the activity or intermittently. 3-Partial/Moderate Assistance-helper does LESS THAN HALF the effort. [place] lifts, holds or supports trunk or limbs, but provides less than half the effort. 2-Substantial/Maximal Assistance-helper does MORE THAN HALF the effort. [place] lifts or holds trunk or limbs and provides more than half the effort. 3-Etcigmqkl-fvdzya does ALL the effort. Patient does none of the effort to c omplete the activity. Or, the assistance of 2 or more helpers is required for the patient to complete the activity. If activity was not attempted, code reason: 7-Patient Refused. 9-Not Applicable-not attempted and the patient did not perform the activity before the current illness, exacerbation or injury. 10-Not Attempted due to Environmental Limitations-(lack of equipment, weather restraints, etc.). 88-Not Attempted due to Medical Conditions or Safety Concerns. Other Treatment Pt sit to stand with supervision. Gait to therapy gym with FWW. Pt completed arm arc activity while standing to increase balance, UE ROM and reaching. Pt completed task with increased time and cues for completion. SBA for balance during standing. Pt sitting in therapy gym with PT present after session. OT Short Term Goals Short Term Goals Time Frame: Jan 09, 2020 Lower body dressin Putting on/taking off footwear: 4 OT Mcfp Goals Mcfp Goals Time Frame: Jan 14, 2020 Eating (QC): 6 Oral Hygiene (QC): 6 Toileting Hygiene (QC): 6 Shower/Bathe Self (QC): 6 Upper Body Dressing (QC): 6 Lower Body Dressing (QC): 6 On/Off Footwear (QC): 6 1=Demonstrate adherence to instructed precautions during ADL tasks. 2=Patient will verbalize/demonstrate understanding of assistive devices/modifications for ADL. 3=Patient will improve strength/tolerance for activity to enable patient to perform ADL's. OT Education/Plan Discharge Recommendations Plan/Recommendations: Continue POC Treatment Plan/Plan of Care Patient would benefit from OT for education, treatment and training to promote independence in ADL's, mobility, safety and/or upper extremity function for ADL's. Plan of Care: ADL Retraining, Functional Mobility, Group Exercise/Act as Ind, UE Funct Exercise/Act Treatment Duration: Jan 27, 2020 Frequency: At least 5 of 7 days/Wk (IRF) Estimated Hrs Per Day: 1.5 hours per day Rehab Potential: Fair Time/GCodes Start Time: 10:45 Stop Time: 11:00 Total Time Billed (hr/min): 15 Billed Treatment Time 1 visit, FA(15minutes) GABINO SIERRA OT Jan 04, 2020 11:16
--- NOTE | 2020-01-04 11:20 | Physical Therapy Daily Note ---
PT Daily Note-Current Subjective Pt is sitting in chair in Therapy Gym after just finishing with OT. Pt agrees to PT. Pain Location: No Pain Reported Mental Status Patient Orientation: Person, Confused After visiting with Nurse, both SLUBBER MACHINE OPERATOR & Nurse feel pt has demonstrated more confusion today. Transfers SCALE: Activities may be completed with or without assistive devices. 3-Wvaoxcomqp-flzqutw completes the activity by him/herself with no assistance from a helper. 5-Set-up or Clean-up Assistance-helper sets up or cleans up; patient completes activity. [place] assists only prior to or following the activity. 4-Supervision or Touching Assistance-helper provides verbal cues and/or touching/steadying and/or contact guard assistance as patient completes activity. Assistance may be provided throughout the activity or intermittently. 3-Partial/Moderate Assistance-helper does LESS THAN HALF the effort. [place] lifts, holds or supports trunk or limbs, but provides less than half the effort. 2-Substantial/Maximal Assistance-helper does MORE THAN HALF the effort. [place] lifts or holds trunk or limbs and provides more than half the effort. 9-Rmwsvtfaz-cxvwyy does ALL the effort. Patient does none of the effort to complete the activity. Or, the assistance of 2 or more helpers is required for the patient to complete the activity. If activity was not attempted, code reason: 7-Patient Refused. 9-Not Applicable-not attempted and the patient did not perform the activity before the current illness, exacerbation or injury. 10-Not Attempted due to Environmental Limitations-(lack of equipment, weather restraints, etc.). 88-Not Attempted due to Medical Conditions or Safety Concerns. Sit to Stand (QC): 5 Weight Bearing Full Weight Bearing Full Weight Bearing Gait Training Does the Patient Walk?: Yes Distance: 500' Walk 10 feet (QC): 5 Walk 50 ft with 2 Turns(QC): 5 Walk 150 ft (QC): 5 Gait Persons Needed: 1 Gait Assistive Device: FWW Wheelchair Training Does the Pt Use a Wheelchair?: No Treatments Pt transfers to standing. Pt ambulates in hallway before returning to room to rest in recliner. Pt has all needs met, call light in hand. Assessment Current Status: Good Progress Pt tolerated Rx well. PT Facsimile Machine Operator Goals Facsimile Machine Operator Goals PT Shelter Goals Time Frame: Jan 14, 2020 Roll Left & Right (QC): 6 Sit to Lying (QC): 6 Lying-Sitting on Side/Bed(QC): 6 Sit to Stand (QC): 6 Chair/Apb-po-Wdhsg Xfer(QC): 6 Toilet Transfer (QC): 6 Car Transfer (QC): 6 Does the Patient Walk: Yes Walk 10 feet (QC): 6 Walk 50ft with 2 Turns (QC): 6 Walk 150 ft (QC): 6 Walking 10ft on Uneven Surface: 6 1 Step (curb) (QC): 6 4 Steps (QC): 6 12 Steps (QC): 6 Picking up an Object (QC): 6 Does the Pt use WC or Scooter?: No Wheel 50 feet with 2 turns (QC: 9 Wheel 150 feet: 9 PT Plan Problem List Problem List: Activity Tolerance Treatment/Plan Treatment Plan: Continue Plan of Care Treatment Plan: Bed Mobility, Education, Functional Activity Vijay, Functional Strength, Group Therapy, Gait, Safety, Therapeutic Exercise, Transfers Treatment Duration: Jan 14, 2020 Frequency: At least 5 of 7 days/Wk (IRF) Estimated Hrs Per Day: 1.5 hours per day Patient and/or Family Agrees t: Yes Safety Risks/Education Patient Education: Gait Training, Correct Positioning, Safety Issues Teaching Recipient: Patient Teaching Methods: Discussion Response to Teaching: Verbalize Understanding Time/GCodes Time In: 1100 Time Out: 1115 Total Billed Treatment Time: 15 Total Billed Treatment 1, GT (15m) CHUY RUGGIERO SLUBBER MACHINE OPERATOR Jan 04, 2020 11:20
--- NOTE | 2020-01-04 12:22 | PM&R Progress Note ---
Subjective HPI/CC On Admission Date Seen by Provider: Jan 04, 2020 Time Seen by Provider: 10:00 Subjective/Events-last exam Pt doing pretty well Confusion and poor recall is significant Will talk about assisted living and skilled care at the group discussion team meeting Checked meds and labs Conferred with RN Reviewed therapy notes Review of Systems General: Fatigue Neurological: Weakness, Confusion Objective Exam Vital Signs Vital Signs Date Time Temp Pulse Resp B/P (MAP) Pulse Ox O2 Delivery O2 Flow Rate FiO2 01/05/20 05:42 37.0 67 20 149/65 (93) 98 Room Air Capillary Refill : Less Than 3 Seconds General Appearance: No Apparent Distress, WD/WN, Chronically ill, Thin, Other (frail) HEENT: PERRL/EOMI, Normal ENT Inspection, Pharynx Normal Neck: Full Range of Motion, Normal Inspection, Non Tender, Supple, Carotid Bruit Respiratory: Chest Non Tender, Lungs Clear, No Accessory Muscle Use, No Respiratory Distress, Decreased Breath Sounds Cardiovascular: Regular Rate, Rhythm, No Edema, No Gallop, No JVD, No Murmur, Normal Peripheral Pulses Gastrointestinal: Normal Bowel Sounds, No Organomegaly, No Pulsatile Mass, Non Tender, Soft Back: Normal Inspection, No CVA Tenderness, No Vertebral Tenderness Extremity: Normal Capillary Refill, Normal Inspection, Normal Range of Motion, Non Tender, No Calf Tenderness, No Pedal Edema Neurologic/Psychiatric: Alert, No Motor/Sensory Deficits, Normal Mood/Affect, international accountant II-XII Norm as Tested, Abnormal Gait, Aphasia (partial), Depressed Affect, Disoriented, Motor Weakness (4/5 motor weakness of legs) Skin: Normal Color, Warm/Dry Lymphatic: No Adenopathy Results/Procedures Lab Patient resulted labs reviewed. FIM Transfers Therapy Code Descriptions/Definitions Functional [place] Measure: 0=Not Assessed/NA 4=Minimal Assistance 1=Total Assistance 5=Supervision or Setup 2=Maximal Assistance 6=Modified [place] 3=Moderate Assistance 7=Complete IndependenceSCALE: Activities may be completed with or without assistive devices. 5-Abhxdfgrre-pfektzj completes the activity by him/herself with no assistance from a helper. 5-Set-up or Clean-up Assistance-helper sets up or cleans up; patient completes activity. [place] assists only prior to or following the activity. 4-Supervision or Touching Assistance-helper provides verbal cues and/or touching/steadying and/or contact guard assistance as patient completes activity. Assistance may be provided throughout the activity or intermittently. 3-Partial/Moderate Assistance-helper does LESS THAN HALF the effort. [place] lifts, holds or supports trunk or limbs, but provides less than half the effort. 2-Substantial/Maximal Assistance-helper does MORE THAN HALF the effort. [place] lifts or holds trunk or limbs and provides more than half the effort. 6-Sznaldltd-cuoyvq does ALL the effort. Patient does none of the effort to complete the activity. Or, the assistance of 2 or more helpers is required for the patient to complete the activity. If activity was not attempted, code reason: 7-Patient Refused. 9-Not Applicable-not attempted and the patient did not perform the activity before the current illness, exacerbation or injury. 10-Not Attempted due to Environmental Limitations-(lack of equipment, weather restraints, etc.). 88-Not Attempted due to Medical Conditions or Safety Concerns. Roll Left to Right (QC): 6 Sit to Lying (QC): 3 Sit to Stand (QC): 5 Chair/Emn-rl-Fgyku Xfer(QC): 4 Car Transfer (QC): 5 Gait Training Does the Patient Walk?: Yes Distance: 500' Walk 10 feet (QC): 5 Walk 50 ft with 2 Turns(QC): 5 Walk 150 ft (QC): 5 Walking 10ft/uneven surface-QC: 5 Gait Persons Needed: 1 Gait Assistive Device: FWW Wheelchair Training Does the Pt Use a Wheelchair?: No Wheel 50 ft with 2 turns (QC): 9 Wheel 150 ft (QC): 9 Stair Training Stair Training: Handrails/: 2 handrails #of Steps: 4 1 Step (curb) (QC): 5 4 Steps (QC): 5 12 Steps (QC): 5 Stairs: Pattern: Step to Balance Picking up an Object (QC): 5 ADL-Treatment Eating (QC): 6 Oral Hygiene (QC): 4 Bathing Location: L Arm, R Arm, L Upper Leg, R Upper Leg, L Lower Leg (including foot), R Lower Leg (including foot), Chest, Abdomen, Perineal Area Shower/Bathe Self (QC): 3 (Bathing completed while seated on shower bench. Pt used hand held shower. Min assist for lower body bathing. Pt requires cues for sequencing and task completion. Pt completed shower transfer with cues for safety) Upper Body Dressing (QC): 5 (Pt doffed shirt without assist. Donned shirt with set up while seated.) Lower Body Dressing (QC): 4 On/Off Footwear (QC): 5 (Pt donned socks with set up while seated.) Toileting Hygiene (QC): 4 Toilet Transfer (QC): 4 Assessment/Plan Assessment and Plan Assess & Plan/Chief Complaint Assessment: s/p acute ischemic CVA not a tPA candidate h/o hemorrhagic CVA Confusion acute on chronic? Asthma h/o PNA HTN HLP Plan: Monitor BP closely Home meds Lung monitoring IRF protocol Confusion monitoring AL at DC? versus NH? 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
--- NOTE | 2020-01-04 13:54 | Speech Therapy Daily Note ---
Speech Daily Progress Note Subjective Date Seen by Provider: Jan 04, 2020 Time Seen by Provider: 00:30 Patient was resting in her chair following PT. Patient did not remember she had been to the gym for therapy. Objective Patient completed simple q/a with 60% given moderate cuing. Assessment Assessment Current Status: Poor Progress Treatment Plan Continue Plan of Care Speech Short Term Goals Short Term Goals Short Term Goals 1) Patient will complete memory tasks related to her daily needs at 80% or greater with minimal cues. 2) Patient will complete safety awareness tasks related to her daily needs at 80% or greater with minimal cues. 3) Patient will complete problem solving tasks related to her daily needs at 80% or greater with minimal cues. 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 Speech-Plan Patient/Family Goals Patient/Family Goals: Patient's planning on returning to her home, however she has moderate to severe level of cognitive deficits and confusion. She is not considered safe to return home alone at this time. Treatment Plan Speech Therapy Treatment Plan: Continue Plan of Care Treatment Duration: Jan 06, 2020 Frequency: 5 times per week Estimated Hrs Per Day: .5 hour per day Rehab Potential: Fair Barriers to Learning: Patient's level of confusion Pt/Family Agrees to Plan: Yes Safety Risks/Education Teaching Recipient: Patient Teaching Methods: Demonstration, Discussion Response to Teaching: Verbalize Understanding, Return Demonstration, Reinforcement Needed Education Topics Provided: Continued safety in her room, chair alarm in place Time Speech Therapy Time In: 10:15 Speech Therapy Time Out: 10:30 Total Billed Time: 15 Billed Treatment Time 1, SLTS No Patient seen 11:30-11:45, 15 minutes HERNANDEZ DIALLO Jan 04, 2020 13:54
[2020-01-04 14:00] VITALS: BP 155/79
[2020-01-04] MEDS: ENOXAPARIN 40 MG/0.4 ML (LOVENOX) SYR SC SCH (14:17)
[2020-01-04 18:00] VITALS: BP 158/72
--- NOTE | 2020-01-04 18:01 | NUR ---
CM/SS PATIENT CARE CONFERENCE and DISCHARGE PLANNING Reviewed Summary with patient and her grandson, Jc Scherer. They were both in agreement to her target discharge of 09/11/19. DPOA-HC: Jc has been speaking with patient about getting this document in place. The two grandsons are the only family available to oversee patients needs other than her sister age 77 and 3 hours away. After fully discussing the document and the purpose, Jc also explained the content to patient and assured her the two grandsons had only her best interests at heart. Ben[place] Still Operator answered all patient questions to her satisfaction, and she wanted to complete this legal document while Jc was here. Original and 3 copies to Jc with copy to our chart for EMR. Lengthy discussion about patient going home alone vs assisted living. Jc was instrumental in helping patient come to a realization that home alone would not be a good option at this time. She has history of a short stay at [facility] during which her condition improved and she did return home. Benzol Still Operator offered area assisted livings, they chose [facility] due to history and life insurance underwriter will contact them tomorrow to check room availability. Patient will need to be inside the building regarding her care needs. If [facility] is not an option, they were told about the current offer from [facility] assisted living for the first 30 days free. Explore if appropriate. Followup tomorrow.
--- NOTE | 2020-01-04 19:09 | NUR ---
bedside report received from TOBIN ROBERSON, assume care of pt
[2020-01-04 20:40] VITALS: BP 164/74
[2020-01-04] MEDS: MELATONIN 3 MG TABLET PO PRN (20:44)
[2020-01-04] MEDS: ATENOLOL 50 MG (TENORMIN) TAB PO SCH (20:44)
--- NOTE | 2020-01-04 20:44 | NUR ---
pt took Colace & Senokot, took Enulose with much encouragement but refused miralax
[2020-01-05 05:42] VITALS: BP 149/65
[2020-01-05] MEDS: hydrALAZINE (APRESOLINE) 25 MG TAB PO SCH ×3 (05:57→22:07)
--- NOTE | 2020-01-05 07:20 | PM&R Progress Note ---
Subjective HPI/CC On Admission Date Seen by Provider: Jan 05, 2020 Time Seen by Provider: 10:00 Subjective/Events-last exam Pt doing pretty well Norvasc of 2.5 is now tolerated BP 149/77 Had a BM today Likely will go to [facility] since her confusion precludes her from going home independently. Checked meds and labs Conferred with RN Reviewed therapy notes Review of Systems General: Fatigue Neurological: Weakness, Confusion Objective Exam Vital Signs Vital Signs Date Time Temp Pulse Resp B/P (MAP) Pulse Ox O2 Delivery O2 Flow Rate FiO2 01/06/20 05:49 36.7 77 18 135/72 (93) 98 Room Air Capillary Refill : Less Than 3 Seconds General Appearance: No Apparent Distress, WD/WN, Chronically ill, Thin, Other (frail) HEENT: PERRL/EOMI, Normal ENT Inspection, Pharynx Normal Neck: Full Range of Motion, Normal Inspection, Non Tender, Supple, Carotid Bruit Respiratory: Chest Non Tender, Lungs Clear, No Accessory Muscle Use, No Respiratory Distress, Decreased Breath Sounds Cardiovascular: Regular Rate, Rhythm, No Edema, No Gallop, No JVD, No Murmur, Normal Peripheral Pulses Gastrointestinal: Normal Bowel Sounds, No Organomegaly, No Pulsatile Mass, Non Tender, Soft Back: Normal Inspection, No CVA Tenderness, No Vertebral Tenderness Extremity: Normal Capillary Refill, Normal Inspection, Normal Range of Motion, Non Tender, No Calf Tenderness, No Pedal Edema Neurologic/Psychiatric: Alert, No Motor/Sensory Deficits, Normal Mood/Affect, 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 FIM Transfers Therapy Code Descriptions/Definitions Functional [place] Measure: 0=Not Assessed/NA 4=Minimal Assistance 1=Total Assistance 5=Supervision or Setup 2=Maximal Assistance 6=Modified [place] 3=Moderate Assistance 7=Complete IndependenceSCALE: Activities may be completed with or without assistive devices. 5-Sofbtunjkq-aizlzhy completes the activity by him/herself with no assistance from a helper. 5-Set-up or Clean-up Assistance-helper sets up or cleans up; patient completes activity. [place] assists only prior to or following the activity. 4-Supervision or Touching Assistance-helper provides verbal cues and/or touching/steadying and/or contact guard assistance as patient completes activity. Assistance may be provided throughout the activity or intermittently. 3-Partial/Moderate Assistance-helper does LESS THAN HALF the effort. [place] lifts, holds or supports trunk or limbs, but provides less than half the effort. 2-Substantial/Maximal Assistance-helper does MORE THAN HALF the effort. [place] lifts or holds trunk or limbs and provides more than half the effort. 7-Plwzuwbbr-pxlsmt does ALL the effort. Patient does none of the effort to complete the activity. Or, the assistance of 2 or more helpers is required for the patient to complete the activity. If activity was not attempted, code reason: 7-Patient Refused. 9-Not Applicable-not attempted and the patient did not perform the activity before the current illness, exacerbation or injury. 10-Not Attempted due to Environmental Limitations-(lack of equipment, weather restraints, etc.). 88-Not Attempted due to Medical Conditions or Safety Concerns. Roll Left to Right (QC): 6 Sit to Lying (QC): 3 Sit to Stand (QC): 5 Chair/Oyx-ul-Gjvje Xfer(QC): 4 Car Transfer (QC): 5 Gait Training Does the Patient Walk?: Yes Distance: 500' Walk 10 feet (QC): 5 Walk 50 ft with 2 Turns(QC): 5 Walk 150 ft (QC): 5 Walking 10ft/uneven surface-QC: 5 Gait Persons Needed: 1 Gait Assistive Device: FWW Wheelchair Training Does the Pt Use a Wheelchair?: No Wheel 50 ft with 2 turns (QC): 9 Wheel 150 ft (QC): 9 Stair Training Stair Training: Handrails/: 2 handrails #of Steps: 4 1 Step (curb) (QC): 5 4 Steps (QC): 5 12 Steps (QC): 5 Stairs: Pattern: Step to Balance Picking up an Object (QC): 5 ADL-Treatment Eating (QC): 6 Oral Hygiene (QC): 4 Bathing Location: L Arm, R Arm, L Upper Leg, R Upper Leg, L Lower Leg (including foot), R Lower Leg (including foot), Chest, Abdomen, Perineal Area Shower/Bathe Self (QC): 3 (Bathing completed while seated on shower bench. Pt used hand held shower. Min assist for lower body bathing. Pt requires cues for sequencing and task completion. Pt completed shower transfer with cues for safety) Upper Body Dressing (QC): 5 (Pt doffed shirt without assist. Donned shirt with set up while seated.) Lower Body Dressing (QC): 4 On/Off Footwear (QC): 5 (Pt donned socks with set up while seated.) Toileting Hygiene (QC): 4 Toilet Transfer (QC): 4 Assessment/Plan Assessment and Plan Assess & Plan/Chief Complaint Assessment: s/p acute ischemic CVA not a tPA candidate h/o hemorrhagic CVA Confusion acute on chronic? Asthma h/o PNA HTN HLP Plan: Monitor BP closely Home meds Lung monitoring IRF protocol Confusion monitoring AL at DC? versus NH? 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
[2020-01-05 08:00] VITALS: BP 149/77
--- NOTE | 2020-01-05 08:00 | NUR ---
DENIES PAIN. HAS BEEN MILDLY HYPERTENSIVE AND NORVASC ADDED TO REGIMEN.
--- NOTE | 2020-01-05 08:23 | Cardiology Progress Note ---
Subjective Date Seen by Provider: Jan 05, 2020 Time Seen by Provider: 08:00 Subjective/Events-last exam Patient is up in bathroom, no new complaints. Denies any chest pain or dyspnea. Review of Systems General: No Chills, No Night Sweats, No Fatigue, No Malaise, No Appetite, No Other HEENT: No Head Aches, No Visual Changes, No Eye Pain, No Ear Pain, No Dysphasia, No Sinus Congestion, No Post Nasal Drip, No Sore Throat, No Other Pulmonary: No Dyspnea, No Cough, No Pleuritic Chest Pain, No Other Cardiovascular: No: Chest Pain, Palpitations, Orthopnea, Paroxysmal Noc. Dyspnea, Edema, Lt Headedness, Other Objective-Cardiology Exam Last Set of Vital Signs Vital Signs 01/05/20 05:42 Temp 37.0 Pulse 67 Resp 20 B/P (MAP) 149/65 (93) Pulse Ox 98 O2 Delivery Room Air Capillary Refill : Less Than 3 Seconds I&O Intake and Output 01/05/20 00:00 Intake Total 1000 ml Balance 1000 ml Intake Oral 1000 ml # Voids 6 General: Alert, Oriented X3, Cooperative HEENT: Atraumatic, PERRLA Neck: Supple, No JVD, No Thyromegaly Lungs: Clear to Auscultation, Normal Air Movement Heart: Regular Rate, Normal S1, Normal S2, No Murmurs Abdomen: Normal Bowel Sounds, Soft, No Tenderness, No Hepatosplenomegaly, No Masses Extremities: No Clubbing, No Cyanosis, No Edema, Normal Pulses, No Tenderness/Swelling Skin: No Rashes, No Breakdown, No Significant Lesion Neuro: Normal Speech, Cranial Nerves 3-12 NL Psych/Mental Status: Mood NL A/P-Cardiology Admission Diagnosis CVA CAD HTN HLP Assessment/Plan 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 Was outside of window to receive TPA. Improving. Receiving physical and occupational therapy. Continue to monitor Mild elevation in troponin, no acute EKG changes. Conservative management, continue on aspirin, probably type II NE. CAD- reported hx of angioplasty over 20 years ago per previous notes that were reviewed. Primary client support administrator is Dr. Raya in [place]. I will try to obtain records for further review. Hypertension, continues to be mildly elevated, I will add Norvasc 2.5 mg daily. Continue to monitor. Hyperlipidemia, monitor lipids COPD Patient was seen and evaluated with Franca, examination performed, management plan was discussed, agree with the current scribed note, I made few changes to the note using Italic font Blood pressure is elevated. We will add Norvasc 2.5 mg daily and evaluate tolerance and response Clinical Quality Measures DVT/VTE Risk/Contraindication: Risk Factor Score Per Nursin RFS Level Per Nursing on Admit: 4+=Very High FRANCA PACK Jan 05, 2020 08:23 PASQUALE TO MD Jan 05, 2020 09:07
[2020-01-05] MEDS: amLODIPine 2.5MG (NORVASC) TAB PO SCH (08:50)
[2020-01-05] MEDS: ASPIRIN E.C. 325 MG (ECOTRIN) TABLET PO SCH (08:51)
[2020-01-05] MEDS: lisINopril 20 MG (PRINIVIL) TABLET PO SCH (08:51)
[2020-01-05] MEDS: DOCUSATE SODIUM 100 MG (COLACE) CAP PO SCH ×2 (08:51→20:06)
[2020-01-05] MEDS: SENNOSIDES 8.6 MG (SENOKOT) TAB PO SCH ×2 (08:51→20:06)
[2020-01-05] MEDS: polyethylene glycoL POWDER 17 GM (MIRALAX) PACK PO SCH ×2 (08:52→20:06)
--- NOTE | 2020-01-05 09:16 | Occupational Ther Daily Note ---
OT Current Status-Daily Note Subjective [id number]: (60)Pt upright in recliner. Alert/ pleasant. Pt oriented to person only. Reoriented to place, situation, time. Pt states sons are 25 and 24 and almost seniors. Pt agrees to shower this morning, educated on safety throughout. [id number] (15): Pt seen in recliner, states she does not remember her PT or what she did with PT. Pt agrees to OT, states she feels "fine," no c/o pain. Mental Status/Objective Patient Orientation: Person ADL-Treatment Therapy Code Descriptions/Definitions Functional [place] Measure: 0=Not Assessed/NA 4=Minimal Assistance 1=Total Assistance 5=Supervision or Setup 2=Maximal Assistance 6=Modified [place] 3=Moderate Assistance 7=Complete IndependenceSCALE: Activities may be completed with or without assistive devices. 4-Vkrfslvupj-gxdxfwp completes the activity by him/herself with no assistance from a helper. 5-Set-up or Clean-up Assistance-helper sets up or cleans up; patient completes activity. [place] assists only prior to or following the activity. 4-Supervision or Touching Assistance-helper provides verbal cues and/or touching/steadying and/or contact guard assistance as patient completes activity. Assistance may be provided throughout the activity or intermittently. 3-Partial/Moderate Assistance-helper does LESS THAN HALF the effort. [place] lifts, holds or supports trunk or limbs, but provides less than half the effort. 2-Substantial/Maximal Assistance-helper does MORE THAN HALF the effort. [place] lifts or holds trunk or limbs and provides more than half the effort. 8-Favnekswt-wcwxcq does ALL the effort. Patient does none of the effort to complete the activity. Or, the assistance of 2 or more helpers is required for the patient to complete the activity. If activity was not attempted, code reason: 7-Patient Refused. 9-Not Applicable-not attempted and the patient did not perform the activity before the current illness, exacerbation or injury. 10-Not Attempted due to Environmental Limitations-(lack of equipment, weather restraints, etc.). 88-Not Attempted due to Medical Conditions or Safety Concerns. Eating (QC): 6 Oral Hygiene (QC): 7 Bathing Location: L Arm, R Arm, L Upper Leg, R Upper Leg, L Lower Leg (including foot), R Lower Leg (including foot), Chest, Abdomen, Buttocks, Perineal Area Shower/Bathe Self (QC): 4 (SBA while in stance, cues for safety throughout.) Upper Body Dressing (QC): 4 (SBA while standing in shower.) Lower Body Dressing (QC): 4 (SBA while standing in shower. Pt uses grab bars for balance.) On/Off Footwear: 4 (SBA while on SC.) Toileting Hygiene (QC): 4 (SBA at toilet/ showering.) Toilet Transfer (QC): 4 (SBA, use of walker, cues for use of grab bars to stand.) Other Treatment Pt ambulates with SBA to toilet/ shower, cues for walker placement and safety. Pt sits to shower, bathes legs multiple times; able to communicate when ready to stand up for bottom hygiene. Pt completes dressing tasks on sc, completes with s/u and SBA. Pt returns to chair with SBA, utilizes hair brush and deodorant with s/u. Pt completes functional cognitive tasks while seated with no auditory distractors. Pt plays card game to address cognitive and physical reactions, requires mod cues. Pt completes memory task, able to remember order of 3 cards, unable to remember order of 4. Pt returns to recliner, all needs met, call light in reach, pt's chair alarm on. 1125: Pt chooses between 2 options. Pt chooses ex over cog fx tasks. Pt ambulates with max cues for directionality. Pt positions self at arm bike and c ompletes 7 min of mod resistance exercise, pt requires 3 cues for when to cease (at 7 min joann) as pt unable to recall min marker. Pt returns to room, states arms feel "worked," returns to sit in recliner with chair alarm on. All needs met, call light in reach. Education OT Patient Education: Correct positioning, Exercise program, Modified ADL tech javon, Progress toward Goal/Update tx plan, Purpose of tx/functional activities Teaching Recipient: Patient Teaching Methods: Demonstration, Discussion Response to Teaching: Verbalize Understanding, Return Demonstration, Reinforcement Needed OT Short Term Goals Short Term Goals Time Frame: Jan 09, 2020 Lower body dressin Putting on/taking off footwear: 4 OT Senior Corporate Accountant Goals [facility] Goals Time Frame: Jan 14, 2020 Eating (QC): 6 Oral Hygiene (QC): 6 Toileting Hygiene (QC): 6 Shower/Bathe Self (QC): 6 Upper Body Dressing (QC): 6 Lower Body Dressing (QC): 6 On/Off Footwear (QC): 6 1=Demonstrate adherence to instructed precautions during ADL tasks. 2=Patient will verbalize/demonstrate understanding of assistive devices/modifications for ADL. 3=Patient will improve strength/tolerance for activity to enable patient to perform ADL's. OT Education/Plan Problem List/Assessment Assessment: Decreased Activ Tolerance, Decreased Safety Aware, Decreased UE Strength, Impaired Cognition, Impaired I ADL's, Impaired Self-Care Skills Discharge Recommendations Plan/Recommendations: Continue POC Therapy Discharge Recommendati: 24 Hour Supervision Treatment Plan/Plan of Care Treatment,Training & Education: Yes Patient would benefit from OT for education, treatment and training to promote independence in ADL's, mobility, safety and/or upper extremity function for ADL's. Plan of Care: ADL Retraining, Functional Mobility, Group Exercise/Act as Ind, UE Funct Exercise/Act Treatment Duration: Jan 27, 2020 Frequency: At least 5 of 7 days/Wk (IRF) Estimated Hrs Per Day: 1.5 hours per day Rehab Potential: Fair Time/GCodes Start Time: 08:00 (1125) Stop Time: 09:00 (1140) Total Time Billed (hr/min): 75 (60+15) Billed Treatment Time [id number]: 1, ADL 3 (40), FA (20)= 60 [id number]: 1, EX (15) Total: 75 LONNIE PERES OTR Jan 05, 2020 09:16
--- NOTE | 2020-01-05 11:47 | Physical Therapy Daily Note ---
PT Daily Note-Current Subjective Pt sitting in recliner upon arrival. Pt agrees to PT. Pain Location: No Pain Reported Mental Status Patient Orientation: Person, Confused Transfers SCALE: Activities may be completed with or without assistive devices. 5-Yrcmrsewid-owyauhq completes the activity by him/herself with no assistance from a helper. 5-Set-up or Clean-up Assistance-helper sets up or cleans up; patient completes activity. [place] assists only prior to or following the activity. 4-Supervision or Touching Assistance-helper provides verbal cues and/or touching/steadying and/or contact guard assistance as patient completes activity. Assistance may be provided throughout the activity or intermittently. 3-Partial/Moderate Assistance-helper does LESS THAN HALF the effort. [place] lifts, holds or supports trunk or limbs, but provides less than half the effort. 2-Substantial/Maximal Assistance-helper does MORE THAN HALF the effort. [place] lifts or holds trunk or limbs and provides more than half the effort. 4-Wsxsewplk-tciaqn does ALL the effort. Patient does none of the effort to complete the activity. Or, the assistance of 2 or more helpers is required for the patient to complete the activity. If activity was not attempted, code reason: 7-Patient Refused. 9-Not Applicable-not attempted and the patient did not perform the activity before the current illness, exacerbation or injury. 10-Not Attempted due to Environmental Limitations-(lack of equipment, weather restraints, etc.). 88-Not Attempted due to Medical Conditions or Safety Concerns. Sit to Stand (QC): 5 Toilet Transfer (QC): 5 Weight Bearing Full Weight Bearing Full Weight Bearing Gait Training Does the Patient Walk?: Yes Distance: 150' x2 Walk 10 feet (QC): 5 Walk 50 ft with 2 Turns(QC): 5 Walk 150 ft (QC): 5 Gait Persons Needed: 1 Gait Assistive Device: FWW Wheelchair Training Does the Pt Use a Wheelchair?: No Stair Training Stair Training: Handrails/: 2 handrails #of Steps: 4 1 Step (curb) (QC): 5 4 Steps (QC): 5 Stairs: Pattern: Step to Exercises Seated Therapy Exercises: Ankle pumps, Long arc quads, Hip flexion, Kicking activity, Hip abd/add, Glut set Seated Reps: 20 Standing: Hamstring curls, Heel/toe raises, Marching, Mini squats, Sit to Stand, Weight shifts Standing Reps: 15 NuStep Minutes: 13 NuStep Workload: 4 Treatments Pt transfers to standing then uses restroom. Pt ambulates in hallway before using NuStep for 13m at WL 4. Pt completes Seated then Standing EX at //bars. Pt also ambulates 4 steps. Pt ambulates in hallway back to pt's room with all needs met, call light in hand. Assessment Current Status: Good Progress Pt still remains confused and needs VC for sequencing and directions. PT Benefits Specialist Recruiter Goals Benefits Specialist Recruiter Goals PT Skilled Nursing Goals Time Frame: Jan 14, 2020 Roll Left & Right (QC): 6 Sit to Lying (QC): 6 Lying-Sitting on Side/Bed(QC): 6 Sit to Stand (QC): 6 Chair/Hqx-xn-Iuseq Xfer(QC): 6 Toilet Transfer (QC): 6 Car Transfer (QC): 6 Does the Patient Walk: Yes Walk 10 feet (QC): 6 Walk 50ft with 2 Turns (QC): 6 Walk 150 ft (QC): 6 Walking 10ft on Uneven Surface: 6 1 Step (curb) (QC): 6 4 Steps (QC): 6 12 Steps (QC): 6 Picking up an Object (QC): 6 Does the Pt use WC or Scooter?: No Wheel 50 feet with 2 turns (QC: 9 Wheel 150 feet: 9 PT Plan Problem List Problem List: Activity Tolerance, Functional Strength, Safety Treatment/Plan Treatment Plan: Continue Plan of Care Treatment Plan: Bed Mobility, Education, Functional Activity Vijay, Functional Strength, Group Therapy, Gait, Safety, Therapeutic Exercise, Transfers Treatment Duration: Jan 14, 2020 Frequency: At least 5 of 7 days/Wk (IRF) Estimated Hrs Per Day: 1.5 hours per day Patient and/or Family Agrees t: Yes Safety Risks/Education Patient Education: Gait Training, Transfer Techniques, Correct Positioning, S afety Issues Teaching Recipient: Patient Teaching Methods: Discussion Response to Teaching: Reinforcement Needed Time/GCodes Time In: 1000 Time Out: 1115 Total Billed Treatment Time: 75 Total Billed Treatment 1, GT (10m), EX x3 (40m) & FA X2 (25m) CHUY RUGGIERO RECRUITER COORDINATOR Jan 05, 2020 11:46
[2020-01-05] MEDS: ENOXAPARIN 40 MG/0.4 ML (LOVENOX) SYR SC SCH (12:22)
--- NOTE | 2020-01-05 12:41 | Speech Therapy Daily Note ---
Speech Daily Progress Note Subjective Date Seen by Provider: Jan 05, 2020 Time Seen by Provider: 00:30 Patient was sitting in her chair watching television. Level of alert noted to be increased. Patient demo ability to converse easily this date. Objective Patient completed conversational tasks with 80% given minimal prompts. Assessment Assessment Current Status: Fair Progress Treatment Plan Continue Plan of Care Speech Short Term Goals Short Term Goals Short Term Goals 1) Patient will complete memory tasks related to her daily needs at 80% or greater with minimal cues. 2) Patient will complete safety awareness tasks related to her daily needs at 80% or greater with minimal cues. 3) Patient will complete problem solving tasks related to her daily needs at 80% or greater with minimal cues. Speech Quality Control Clerk Goals Quality Control Clerk Goals Patient will improve cognitive-communication necessary for safety and daily living tasks with minimal assist. Speech-Plan Patient/Family Goals Patient/Family Goals: Patient's discharge plan is being made by SS at this time. Treatment Plan Speech Therapy Treatment Plan: Continue Plan of Care Treatment Duration: Jan 06, 2020 Frequency: 5 times per week Estimated Hrs Per Day: .5 hour per day Rehab Potential: Fair Barriers to Learning: Patient's level of confusion and cognitive deficits Pt/Family Agrees to Plan: Yes Safety Risks/Education Teaching Recipient: Patient Teaching Methods: Demonstration, Discussion Response to Teaching: Verbalize Understanding, Return Demonstration Education Topics Provided: Continued safety and communication, utilization of call light Time Speech Therapy Time In: 09:30 Speech Therapy Time Out: 10:00 Total Billed Time: 30 Billed Treatment Time 1G[address] Jan 05, 2020 12:41
--- NOTE | 2020-01-05 15:04 | NUR ---
"RD ASSESSMENT PMHx: HTN; HLD; CAD; stroke; [place] PT INTERACTION: Pt was awake and pleasant during nutrition follow-up. Pt states she has been eating well since last assessment. Note avg PO intake 56% x4d, per chart review. Pt states no issues with nausea, vomiting, constipation, or diarrhea since last assessment. Note last BM was 01/04 and pt currently on bowel regimen of colace BID; senna BID; and miralax BID, per chart review. ABNORMAL NUTRITION-RELATED LAB VALUES LOW: Pro 6.1; HDL 36 HIGH: Est. kcal needs: 2741-8838 kcal | 25-30 kcal/kg Est. Pro needs: 57-69 g Pro | 1.0-1.2 g Pro/kg PES STATEMENT: Inadequate oral intake (NI-2.1) related to loss of appetite as evidenced by pt interview | avg PO intake 56% x4d INTERVENTION: Continue with current diet order of Heart Healthy diet. Add Ensure Enlive (vary) to meals TID, for increased kcal intake. Provides 350 kcal and 13 g Pro per serving. Will continue to follow and reassess as pt needs, intake, and status change. MONITOR/EVALUATE: PO Intake; Plan of Care; Hydration Status; Weight Status; Lab Values Denisse Greene, MS, RD, LD"
--- NOTE | 2020-01-05 16:00 | NUR ---
HAS BEEN SO CONFUSED TODAY. CHAIR EXIT ALARM GOES OFF OFTEN, BUT PATIENT USUALLY SITS BACK DOWN ON OWN WHEN ALARM RINGS.
--- NOTE | 2020-01-05 16:19 | NUR ---
CM/SS CONCURRENT DOCUMENTATION Referral completed with [facility] as planned, Department Store Manager Teresita came to interview/assess patient. She concluded that patient was eligible for admission, continuity writer provided grandson/DPOA-HC Jc' contact information. Tentative plan is that patient will admit there Thursday, January 10, 2020. Jc is returning Thursday to this area, perhaps he can begin to personalize patient's room ahead of Thursday. Following for confirmation all parties are in agreement to assisting living residential, alternate plan would be community SNF.
[2020-01-05 17:05] VITALS: BP 158/77
[2020-01-05] MEDS: ATENOLOL 50 MG (TENORMIN) TAB PO SCH (20:17)
[2020-01-05] MEDS: MELATONIN 3 MG TABLET PO PRN (20:17)
[2020-01-06 05:49] VITALS: BP 135/72
[2020-01-06] MEDS: hydrALAZINE (APRESOLINE) 25 MG TAB PO SCH ×3 (06:12→21:03)
[2020-01-06] MEDS: ASPIRIN E.C. 325 MG (ECOTRIN) TABLET PO SCH (07:55)
[2020-01-06] MEDS: lisINopril 20 MG (PRINIVIL) TABLET PO SCH (07:55)
[2020-01-06] MEDS: DOCUSATE SODIUM 100 MG (COLACE) CAP PO SCH ×2 (07:55→19:43)
[2020-01-06] MEDS: amLODIPine 2.5MG (NORVASC) TAB PO SCH (07:55)
[2020-01-06] MEDS: polyethylene glycoL POWDER 17 GM (MIRALAX) PACK PO SCH ×2 (07:56→19:07)
[2020-01-06] MEDS: SENNOSIDES 8.6 MG (SENOKOT) TAB PO SCH ×2 (07:56→19:07)
[2020-01-06 07:58] VITALS: BP 152/74
--- NOTE | 2020-01-06 09:02 | Physical Therapy Daily Note ---
PT Daily Note-Current Subjective Pt. agrees to Rx. States she has been slowly getting better. Pain Location: No Pain Reported Mental Status Patient Orientation: Person, [place] Transfers SCALE: Activities may be completed with or without assistive devices. 3-Unmwahfycc-katbkfz completes the activity by him/herself with no assistance from a helper. 5-Set-up or Clean-up Assistance-helper sets up or cleans up; patient completes activity. [place] assists only prior to or following the activity. 4-Supervision or Touching Assistance-helper provides verbal cues and/or touching/steadying and/or contact guard assistance as patient completes activity. Assistance may be provided throughout the activity or intermittently. 3-Partial/Moderate Assistance-helper does LESS THAN HALF the effort. [place] lifts, holds or supports trunk or limbs, but provides less than half the effort. 2-Substantial/Maximal Assistance-helper does MORE THAN HALF the effort. [place] lifts or holds trunk or limbs and provides more than half the effort. 5-Ztqgdmhui-qrqtmc does ALL the effort. Patient does none of the effort to complete the activity. Or, the assistance of 2 or more helpers is required for the patient to complete the activity. If activity was not attempted, code reason: 7-Patient Refused. 9-Not Applicable-not attempted and the patient did not perform the activity before the current illness, exacerbation or injury. 10-Not Attempted due to Environmental Limitations-(lack of equipment, weather restraints, etc.). 88-Not Attempted due to Medical Conditions or Safety Concerns. Sit to Stand (QC): 5 Chair/Yrj-qo-Aopul Xfer(QC): 5 Toilet Transfer (QC): 5 Weight Bearing Full Weight Bearing Full Weight Bearing Gait Training Does the Patient Walk?: Yes Walk 10 feet (QC): 5 Walk 50 ft with 2 Turns(QC): 5 Walk 150 ft (QC): 5 Gait Persons Needed: 1 Gait Assistive Device: FWW pt. needs directed over and over, is not oriented to her space . No LOB, flexed at trunk Exercises Supine Ex: Ankle pumps, Quad Set, Glut sets, Heel Slides, Straight leg raise, Hip abd/add Supine Reps: 20 Seated Therapy Exercises: Ankle pumps, Sit to stand, Long arc quads, Hip flexion, Hip abd/add Seated Reps: 20 NuStep Minutes: 8 NuStep Workload: 3 Treatments toileted SBA and guidance Assessment Current Status: Good Progress PT Design Analyst Goals Retirement Goals PT Retirement Goals Time Frame: Jan 14, 2020 Roll Left & Right (QC): 6 Sit to Lying (QC): 6 Lying-Sitting on Side/Bed(QC): 6 Sit to Stand (QC): 6 Chair/Fhk-gc-Epwlm Xfer(QC): 6 Toilet Transfer (QC): 6 Car Transfer (QC): 6 Does the Patient Walk: Yes Walk 10 feet (QC): 6 Walk 50ft with 2 Turns (QC): 6 Walk 150 ft (QC): 6 Walking 10ft on Uneven Surface: 6 1 Step (curb) (QC): 6 4 Steps (QC): 6 12 Steps (QC): 6 Picking up an Object (QC): 6 Does the Pt use WC or Scooter?: No Wheel 50 feet with 2 turns (QC: 9 Wheel 150 feet: 9 PT Plan Treatment/Plan Treatment Plan: Continue Plan of Care Treatment Plan: Bed Mobility, Education, Functional Activity Vijay, Functional Strength, Group Therapy, Gait, Safety, Therapeutic Exercise, Transfers Treatment Duration: Jan 14, 2020 Frequency: At least 5 of 7 days/Wk (IRF) Estimated Hrs Per Day: 1.5 hours per day Patient and/or Family Agrees t: Yes Safety Risks/Education Patient Education: Gait Training, Transfer Techniques, Correct Positioning, Disease Process, Safety Issues Teaching Recipient: Patient Teaching Methods: Demonstration, Discussion Response to Teaching: Verbalize Understanding, Return Demonstration, Reinforcement Needed Time/GCodes Time In: 800 Time Out: 900 Total Billed Treatment Time: 60 Total Billed Treatment 1,FA30m,GT15m,EX15m NAILA SEGOVIA RADIOTELEGRAPH OPERATOR SERVICER Jan 06, 2020 09:02
--- NOTE | 2020-01-06 10:10 | Occupational Ther Daily Note ---
OT Current Status-Daily Note Subjective Pt seen in recliner chair this am. Pt oriented to person only, educated on dx/ place/ year. Pt agrees to OT tx session. Mental Status/Objective Patient Orientation: Person ADL-Treatment Therapy Code Descriptions/Definitions Functional [place] Measure: 0=Not Assessed/NA 4=Minimal Assistance 1=Total Assistance 5=Supervision or Setup 2=Maximal Assistance 6=Modified [place] 3=Moderate Assistance 7=Complete IndependenceSCALE: Activities may be completed with or without assistive devices. 3-Iuqpmsdbbr-fkxrnvb completes the activity by him/herself with no assistance from a helper. 5-Set-up or Clean-up Assistance-helper sets up or cleans up; patient completes activity. [place] assists only prior to or following the activity. 4-Supervision or Touching Assistance-helper provides verbal cues and/or touching/steadying and/or contact guard assistance as patient completes activity. Assistance may be provided throughout the activity or intermittently. 3-Partial/Moderate Assistance-helper does LESS THAN HALF the effort. [place] lifts, holds or supports trunk or limbs, but provides less than half the effort. 2-Substantial/Maximal Assistance-helper does MORE THAN HALF the effort. [place] lifts or holds trunk or limbs and provides more than half the effort. 8-Srzehcjmc-evtohg does ALL the effort. Patient does none of the effort to complete the activity. Or, the assistance of 2 or more helpers is required for the patient to complete the activity. If activity was not attempted, code reason: 7-Patient Refused. 9-Not Applicable-not attempted and the patient did not perform the activity before the current illness, exacerbation or injury. 10-Not Attempted due to Environmental Limitations-(lack of equipment, weather restraints, etc.). 88-Not Attempted due to Medical Conditions or Safety Concerns. Eating (QC): 6 Oral Hygiene (QC): 7 Bathing Location: L Arm, R Arm, L Upper Leg, R Upper Leg, L Lower Leg (including foot), R Lower Leg (including foot), Chest, Abdomen, Buttocks, Perineal Area Shower/Bathe Self (QC): 4 (SBA during all tasks in shwoer. Completes without LOB. ) Upper Body Dressing (QC): 6 (IND while seated.) Lower Body Dressing (QC): 4 (SBA all tasks in stance (pt threads LE's in stance, requires SBA, though use of gb)) On/Off Footwear: 6 (IND while seated on sc.) Toileting Hygiene (QC): 4 (SUP) Toilet Transfer (QC): 4 (SBA, use of walker.) Other Treatment Pt educated on showering yesterday, pt agrees to another. Pt completes without LOB with SBA all tasks. Pt completes ADLs in shower. Pt returns to chair for rest break. Agrees to complete laundry tasks, scans environment for di rectionality cues, able to locate laundry room with min cues. Pt completes laundry task with s/u. Able to state settings desired. Pt able to navigate environment with mod cues for therapy gym. Pt navigates and scans environment to locate 12/12 cones through gym/ kitchen area. No LOB noted, pt requires cues for placement of walker during kitchen mob, educated on oven range/ walker safety. Pt able to navigate back to room with mod cues. Pt completes balance/ UE/ crossing midline task, able to reach and pick cones from static stance from floor without LOB/ CGA. Pt returns to sit, all needs met, call light in reach, pt's chair alarm on. Education OT Patient Education: Exercise program, Modified ADL techniques, Purpose of tx/functional activities, Safety issues Teaching Recipient: Patient Teaching Methods: Demonstration, Discussion Response to Teaching: Verbalize Understanding, Return Demonstration, Reinforcement Needed OT Short Term Goals Short Term Goals Time Frame: Jan 09, 2020 Lower body dressin Putting on/taking off footwear: 4 OT Penitentiary Goals Penitentiary Goals Time Frame: Jan 14, 2020 Eating (QC): 6 Oral Hygiene (QC): 6 Toileting Hygiene (QC): 6 Shower/Bathe Self (QC): 6 Upper Body Dressing (QC): 6 Lower Body Dressing (QC): 6 On/Off Footwear (QC): 6 1=Demonstrate adherence to instructed precautions during ADL tasks. 2=Patient will verbalize/demonstrate understanding of assistive devices/modifications for ADL. 3=Patient will improve strength/tolerance for activity to enable patient to perform ADL's. OT Education/Plan Problem List/Assessment Assessment: Decreased Activ Tolerance, Decreased Safety Aware, Decreased UE Strength, Impaired Cognition, Impaired I ADL's, Impaired Self-Care Skills Discharge Recommendations Plan/Recommendations: Continue POC Therapy Discharge Recommendati: 24 Hour Supervision Treatment Plan/Plan of Care Treatment,Training & Education: Yes Patient would benefit from OT for education, treatment and training to promote independence in ADL's, mobility, safety and/or upper extremity function for ADL's. Plan of Care: ADL Retraining, Functional Mobility, Group Exercise/Act as Ind, U E Funct Exercise/Act Treatment Duration: Jan 27, 2020 Frequency: At least 5 of 7 days/Wk (IRF) Estimated Hrs Per Day: 1.5 hours per day Rehab Potential: Fair Time/GCodes Start Time: 09:00 Stop Time: 10:00 Total Time Billed (hr/min): 60 Billed Treatment Time 1, ADL 2, FA, EX (60) LONNIE PERES OTR Jan 06, 2020 10:10
--- NOTE | 2020-01-06 10:54 | Cardiology Progress Note ---
Subjective Date Seen by Provider: Jan 06, 2020 Time Seen by Provider: 10:53 Subjective/Events-last exam Patient is in a chair, feeling well. No new complaint Review of Systems General: No Chills, No Night Sweats, No Fatigue, No Malaise, No Appetite, No Other HEENT: No Head Aches, No Visual Changes, No Eye Pain, No Ear Pain, No Dysphasia, No Sinus Congestion, No Post Nasal Drip, No Sore Throat, No Other Pulmonary: No Dyspnea, No Cough, No Pleuritic Chest Pain, No Other Cardiovascular: No: Chest Pain, Palpitations, Orthopnea, Paroxysmal Noc. Dyspnea, Edema, Lt Headedness, Other Objective-Cardiology Exam Last Set of Vital Signs Vital Signs 01/06/20 01/06/20 01/06/20 05:49 07:58 08:58 Temp 36.7 Pulse 67 Resp 18 B/P (MAP) 152/74 (100) Pulse Ox 98 O2 Delivery Room Air Capillary Refill : Less Than 3 Seconds I&O Intake and Output 01/06/20 00:00 Intake Total 1220 ml Balance 1220 ml Intake Oral 1220 ml # Voids 6 # Bowel Movements 1 General: Alert, Oriented X3, Cooperative HEENT: Atraumatic, PERRLA Neck: Supple, No JVD, No Thyromegaly Lungs: Clear to Auscultation, Normal Air Movement Heart: Regular Rate, Normal S1, Normal S2, No Murmurs Abdomen: Normal Bowel Sounds, Soft, No Tenderness, No Hepatosplenomegaly, No Masses Extremities: No Clubbing, No Cyanosis, No Edema, Normal Pulses, No Tenderness/Swelling Skin: No Rashes, No Breakdown, No Significant Lesion Neuro: Normal Speech, Cranial Nerves 3-12 NL Psych/Mental Status: Mood NL A/P-Cardiology Admission Diagnosis CVA CAD HTN HLP Assessment/Plan 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 Was outside of window to receive TPA. Improving. Receiving physical and occupational therapy. Continue to monitor Mild elevation in troponin, no acute EKG changes. Conservative management, continue on aspirin, probably type II OK. Currently asymptomatic. Continue to monitor CAD- reported hx of angioplasty over 20 years ago per previous notes that were reviewed. Primary compliance and control analyst is Dr. Raya in [place]. Hypertension, I will increase Norvasc to 5 mg daily and evaluate tolerance and response Hyperlipidemia, monitor lipids COPD Clinical Quality Measures DVT/VTE Risk/Contraindication: Risk Factor Score Per Nursin RFS Level Per Nursing on Admit: 4+=Very High PASQUALE TO MD Jan 06, 2020 10:54 am
[2020-01-06 11:43] VITALS: BP 137/75
[2020-01-06] MEDS: amLODIPine 5 MG (NORVASC) TAB PO SCH (11:43)
--- NOTE | 2020-01-06 11:44 | PM&R Progress Note ---
Subjective HPI/CC On Admission Date Seen by Provider: Jan 06, 2020 Time Seen by Provider: 10:00 Subjective/Events-last exam Pt doing pretty well no complaints Norvasc of 5 is now tolerated and BP improved BP stable Had a BM today Likely will go to [facility] since her confusion precludes her from going home independently. Patient has very poor recall Checked meds and labs Conferred with RN Reviewed therapy notes Review of Systems General: Fatigue Neurological: Confusion Objective Exam Vital Signs Vital Signs Date Time Temp Pulse Resp B/P (MAP) Pulse Ox O2 Delivery O2 Flow Rate FiO2 01/07/20 17:51 36.8 73 18 145/75 (98) 98 Room Air Capillary Refill : Less Than 3 Seconds General Appearance: No Apparent Distress, WD/WN, Chronically ill, Thin, Other (frail) HEENT: PERRL/EOMI, Normal ENT Inspection, Pharynx Normal Neck: Full Range of Motion, Normal Inspection, Non Tender, Supple, Carotid Bruit Respiratory: Chest Non Tender, Lungs Clear, No Accessory Muscle Use, No Respiratory Distress, Decreased Breath Sounds Cardiovascular: Regular Rate, Rhythm, No Edema, No Gallop, No JVD, No Murmur, Normal Peripheral Pulses Gastrointestinal: Normal Bowel Sounds, No Organomegaly, No Pulsatile Mass, Non Tender, Soft Back: Normal Inspection, No CVA Tenderness, No Vertebral Tenderness Extremity: Normal Capillary Refill, Normal Inspection, Normal Range of Motion, Non Tender, No Calf Tenderness, No Pedal Edema Neurologic/Psychiatric: Alert, No Motor/Sensory Deficits, Normal Mood/Affect, supervisor computer operations II-XII Norm as Tested, Abnormal Gait, Aphasia (partial), Depressed Affect, Disoriented, Motor Weakness (4/5 motor weakness of legs) Skin: Normal Color, Warm/Dry Lymphatic: No Adenopathy Results/Procedures Lab Patient resulted labs reviewed. FIM Transfers Therapy Code Descriptions/Definitions Functional [place] Measure: 0=Not Assessed/NA 4=Minimal Assistance 1=Total Assistance 5=Supervision or Setup 2=Maximal Assistance 6=Modified [place] 3=Moderate Assistance 7=Complete IndependenceSCALE: Activities may be completed with or without assistive devices. 1-Wssekthvxa-eruzdqn completes the activity by him/herself with no assistance from a helper. 5-Set-up or Clean-up Assistance-helper sets up or cleans up; patient completes activity. [place] assists only prior to or following the activity. 4-Supervision or Touching Assistance-helper provides verbal cues and/or touching/steadying and/or contact guard assistance as patient completes activity. Assistance may be provided throughout the activity or intermittently. 3-Partial/Moderate Assistance-helper does LESS THAN HALF the effort. [place] lifts, holds or supports trunk or limbs, but provides less than half the effort. 2-Substantial/Maximal Assistance-helper does MORE THAN HALF the effort. [place] lifts or holds trunk or limbs and provides more than half the effort. 6-Dmlvlmqox-hyaggu does ALL the effort. Patient does none of the effort to complete the activity. Or, the assistance of 2 or more helpers is required for the patient to complete the activity. If activity was not attempted, code reason: 7-Patient Refused. 9-Not Applicable-not attempted and the patient did not perform the activity before the current illness, exacerbation or injury. 10-Not Attempted due to Environmental Limitations-(lack of equipment, weather restraints, etc.). 88-Not Attempted due to Medical Conditions or Safety Concerns. Roll Left to Right (QC): 6 Sit to Lying (QC): 3 Sit to Stand (QC): 5 Chair/Val-ys-Swpwy Xfer(QC): 5 Car Transfer (QC): 5 Gait Training Does the Patient Walk?: Yes Distance: 150' x2 Walk 10 feet (QC): 5 Walk 50 ft with 2 Turns(QC): 5 Walk 150 ft (QC): 5 Walking 10ft/uneven surface-QC: 5 Gait Persons Needed: 1 Gait Assistive Device: FWW Wheelchair Training Does the Pt Use a Wheelchair?: No Wheel 50 ft with 2 turns (QC): 9 Wheel 150 ft (QC): 9 Stair Training Stair Training: Handrails/: 2 handrails #of Steps: 4 1 Step (curb) (QC): 5 4 Steps (QC): 5 12 Steps (QC): 5 Stairs: Pattern: Step to Balance Picking up an Object (QC): 5 ADL-Treatment Eating (QC): 6 Oral Hygiene (QC): 7 Bathing Location: L Arm, R Arm, L Upper Leg, R Upper Leg, L Lower Leg (including foot), R Lower Leg (including foot), Chest, Abdomen, Buttocks, Perineal Area Shower/Bathe Self (QC): 4 (SBA during all tasks in woer. Completes without LOB. ) Upper Body Dressing (QC): 6 (IND while seated.) Lower Body Dressing (QC): 4 (SBA all tasks in stance (pt threads LE's in sta nce, requires SBA, though use of gb)) On/Off Footwear (QC): 6 (IND while seated on sc.) Toileting Hygiene (QC): 4 (SUP) Toilet Transfer (QC): 4 (SBA, use of walker.) Assessment/Plan Assessment and Plan Assess & Plan/Chief Complaint Assessment: s/p acute ischemic CVA not a tPA candidate h/o hemorrhagic CVA Confusion acute on chronic? 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
--- NOTE | 2020-01-06 11:45 | NUR ---
CM/SS CONCURRENT DOCUMENTATION Teresita from [facility] has spoken with chris Greene and they are moving forward about patient moving in there. Jc has admit documentation to review regarding details like room size, amenities, cost. Central Office Inspector advised him to bring some personal items for decor so she will hopefully have a more positive adjustment. Provided Jc with some General Power of Cable Television Technician information, he has concerns about patient's bills getting paid. This is a turning point of sorts for patient in that she will not be able to consistently manage herself or residence and certainly not residing alone. Positive movement toward an acceptable and safe discharge plan, followup Thursday.
--- NOTE | 2020-01-06 12:03 | Physical Therapy Daily Note ---
PT Daily Note-Current Subjective Pt. sitting up in chair , agrees to seated ther ex, declines ambulation Pain Location: No Pain Reported Transfers SCALE: Activities may be completed with or without assistive devices. 4-Blvoncgzkx-kzgfkfl completes the activity by him/herself with no assistance from a helper. 5-Set-up or Clean-up Assistance-helper sets up or cleans up; patient completes activity. [place] assists only prior to or following the activity. 4-Supervision or Touching Assistance-helper provides verbal cues and/or touching/steadying and/or contact guard assistance as patient completes activity. Assistance may be provided throughout the activity or intermittently. 3-Partial/Moderate Assistance-helper does LESS THAN HALF the effort. [place] lifts, holds or supports trunk or limbs, but provides less than half the effort. 2-Substantial/Maximal Assistance-helper does MORE THAN HALF the effort. [place] lifts or holds trunk or limbs and provides more than half the effort. 5-Rlbvnhabk-gobkfd does ALL the effort. Patient does none of the effort to complete the activity. Or, the assistance of 2 or more helpers is required for the patient to complete the activity. If activity was not attempted, code reason: 7-Patient Refused. 9-Not Applicable-not attempted and the patient did not perform the activity before the current illness, exacerbation or injury. 10-Not Attempted due to Environmental Limitations-(lack of equipment, weather restraints, etc.). 88-Not Attempted due to Medical Conditions or Safety Concerns. pt. scooted in chair , up with head of chair layed back with instruction, pt. more comfortable in recliner after this adjustment Weight Bearing Full Weight Bearing Full Weight Bearing Exercises Supine Ex: Ankle pumps, Quad Set, Glut sets, Heel Slides, Short Arc Quads, Scooting, Straight leg raise, Hip abd/add Supine Reps: 20 Assessment Current Status: Good Progress PT [employer] Goals Jail Goals PT [employer] Goals Time Frame: Jan 14, 2020 Roll Left & Right (QC): 6 Sit to Lying (QC): 6 Lying-Sitting on Side/Bed(QC): 6 Sit to Stand (QC): 6 Chair/Eyq-tl-Wzkhc Xfer(QC): 6 Toilet Transfer (QC): 6 Car Transfer (QC): 6 Does the Patient Walk: Yes Walk 10 feet (QC): 6 Walk 50ft with 2 Turns (QC): 6 Walk 150 ft (QC): 6 Walking 10ft on Uneven Surface: 6 1 Step (curb) (QC): 6 4 Steps (QC): 6 12 Steps (QC): 6 Picking up an Object (QC): 6 Does the Pt use WC or Scooter?: No Wheel 50 feet with 2 turns (QC: 9 Wheel 150 feet: 9 PT Plan Treatment/Plan Treatment Plan: Continue Plan of Care Treatment Plan: Bed Mobility, Education, Functional Activity Vijay, Functional Strength, Group Therapy, Gait, Safety, Therapeutic Exercise, Transfers Treatment Duration: Jan 14, 2020 Frequency: At least 5 of 7 days/Wk (IRF) Estimated Hrs Per Day: 1.5 hours per day Patient and/or Family Agrees t: Yes Safety Risks/Education Patient Education: Correct Positioning Teaching Recipient: Patient Teaching Methods: Demonstration, Discussion Response to Teaching: Verbalize Understanding, Return Demonstration Time/GCodes Time In: 1145 Time Out: 1200 Total Billed Treatment Time: 15 Total Billed Treatment 1,EX15m NAILA SEGOVIA ROUSTABOUT CREW PUSHER Jan 06, 2020 12:03
[2020-01-06] MEDS: ENOXAPARIN 40 MG/0.4 ML (LOVENOX) SYR SC SCH (13:05)
--- NOTE | 2020-01-06 13:12 | Speech Therapy Daily Note ---
Speech Daily Progress Note Subjective Date Seen by Provider: Jan 06, 2020 Time Seen by Provider: 00:30 Patient was alert and participated well with therapy. Objective Patient completed following 1 step directions with tasks related to her daily needs at 75% with moderate cues. Assessment Assessment Current Status: Fair Progress Treatment Plan Continue Plan of Care Speech Short Term Goals Short Term Goals Short Term Goals 1) Patient will complete memory tasks related to her daily needs at 80% or greater with minimal cues. 2) Patient will complete safety awareness tasks related to her daily needs at 80% or greater with minimal cues. 3) Patient will complete problem solving tasks related to her daily needs at 80% or greater with minimal cues. Speech Penitentiary Goals [employer] Goals Patient will improve cognitive-communication necessary for safety and daily living tasks with minimal assist. Speech-Plan Patient/Family Goals Patient/Family Goals: Patient is scheduled to discharge on 01/10/2020. Treatment Plan Speech Therapy Treatment Plan: Continue Plan of Care Treatment Duration: Jan 06, 2020 Frequency: 5 times per week Estimated Hrs Per Day: .5 hour per day Rehab Potential: Fair Barriers to Learning: Patient's moderate dementia Pt/Family Agrees to Plan: Yes Safety Risks/Education Teaching Recipient: Patient Teaching Methods: Demonstration, Discussion Response to Teaching: Verbalize Understanding, Return Demonstration Education Topics Provided: Continued safety within her room and communication of wants/needs Time Speech Therapy Time In: 10:00 Speech Therapy Time Out: 10:30 Total Billed Time: 30 Billed Treatment Time 1GUST[address] Jan 06, 2020 13:12
[2020-01-06 14:05] VITALS: BP 157/73
--- NOTE | 2020-01-06 14:59 | Occupational Ther Daily Note ---
OT Current Status-Daily Note Subjective Pt in recliner this afternoon. Pt agreeable to OT tx session, working towards higher fx cog in daily tasks. Pt oriented to person only, talks about her , [place], and grandchildren. Mental Status/Objective Patient Orientation: Person ADL-Treatment Therapy Code Descriptions/Definitions Functional [place] Measure: 0=Not Assessed/NA 4=Minimal Assistance 1=Total Assistance 5=Supervision or Setup 2=Maximal Assistance 6=Modified [place] 3=Moderate Assistance 7=Complete IndependenceSCALE: Activities may be completed with or without assistive devices. 4-Mooujocwmr-ehuqiiv completes the activity by him/herself with no assistance from a helper. 5-Set-up or Clean-up Assistance-helper sets up or cleans up; patient completes activity. [place] assists only prior to or following the activity. 4-Supervision or Touching Assistance-helper provides verbal cues and/or touching/steadying and/or contact guard assistance as patient completes activity. Assistance may be provided throughout the activity or intermittently. 3-Partial/Moderate Assistance-helper does LESS THAN HALF the effort. [place] lifts, holds or supports trunk or limbs, but provides less than half the effort. 2-Substantial/Maximal Assistance-helper does MORE THAN HALF the effort. [place] lifts or holds trunk or limbs and provides more than half the effort. 2-Wvdwqzvkn-fsilkp does ALL the effort. Patient does none of the effort to complete the activity. Or, the assistance of 2 or more helpers is required for the patient to complete the activity. If activity was not attempted, code reason: 7-Patient Refused. 9-Not Applicable-not attempted and the patient did not perform the activity before the current illness, exacerbation or injury. 10-Not Attempted due to Environmental Limitations-(lack of equipment, weather restraints, etc.). 88-Not Attempted due to Medical Conditions or Safety Concerns. Toileting Hygiene (QC): 7 Toilet Transfer (QC): 7 Other Treatment Pt denies bathroom use during tx and end of tx. Pt completes cog fx tasks, including fine-motor shape matching and card reorganization. Pt completes with increased accuracy and decreased response time since last session, though still requires mod cueing for problem solving. Pt able to find backward/ upside down word from word search without cues. Pt left with word searches and all needs met, call light on lap, chair alarm on. Education OT Patient Education: Correct positioning, Exercise program, Home exercise program, Progress toward Goal/Update tx plan Teaching Recipient: Patient Teaching Methods: Demonstration, Discussion Response to Teaching: Verbalize Understanding, Return Demonstration, Reinforcement Needed OT Short Term Goals Short Term Goals Time Frame: Jan 09, 2020 Lower body dressin Putting on/taking off footwear: 4 OT Help Desk Intern Goals Help Desk Intern Goals Time Frame: Jan 14, 2020 Eating (QC): 6 Oral Hygiene (QC): 6 Toileting Hygiene (QC): 6 Shower/Bathe Self (QC): 6 Upper Body Dressing (QC): 6 Lower Body Dressing (QC): 6 On/Off Footwear (QC): 6 1=Demonstrate adherence to instructed precautions during ADL tasks. 2=Patient will verbalize/demonstrate understanding of assistive devic es/modifications for ADL. 3=Patient will improve strength/tolerance for activity to enable patient to perform ADL's. OT Education/Plan Problem List/Assessment Assessment: Decreased Activ Tolerance, Decreased Safety Aware, Decreased UE Strength, Impaired Cognition, Impaired Funct Balance, Impaired I ADL's, Impaired Self-Care Skills Discharge Recommendations Plan/Recommendations: Continue POC Therapy Discharge Recommendati: 24 Hour Supervision Treatment Plan/Plan of Care Treatment,Training & Education: Yes Patient would benefit from OT for education, treatment and training to promote independence in ADL's, mobility, safety and/or upper extremity function for ADL's. Plan of Care: ADL Retraining, Functional Mobility, Group Exercise/Act as Ind, UE Funct Exercise/Act Treatment Duration: Jan 27, 2020 Frequency: At least 5 of 7 days/Wk (IRF) Estimated Hrs Per Day: 1.5 hours per day Rehab Potential: Fair Time/GCodes Start Time: 14:00 Stop Time: 14:15 Total Time Billed (hr/min): 15 Billed Treatment Time 1, FA (15) LONNIE PERES OTR Jan 06, 2020 14:59
[2020-01-06 15:12] VITALS: BP 130/71
[2020-01-06] MEDS: ATENOLOL 50 MG (TENORMIN) TAB PO SCH (19:43)
[2020-01-06] MEDS: MELATONIN 3 MG TABLET PO PRN (19:43)
[2020-01-07 04:24] VITALS: BP 151/71
[2020-01-07] MEDS: hydrALAZINE (APRESOLINE) 25 MG TAB PO SCH ×3 (06:25→22:44)
[2020-01-07] MEDS: polyethylene glycoL POWDER 17 GM (MIRALAX) PACK PO SCH ×2 (08:23→20:02)
[2020-01-07] MEDS: SENNOSIDES 8.6 MG (SENOKOT) TAB PO SCH ×2 (08:25→20:02)
[2020-01-07] MEDS: DOCUSATE SODIUM 100 MG (COLACE) CAP PO SCH ×2 (08:25→20:01)
[2020-01-07] MEDS: ASPIRIN E.C. 325 MG (ECOTRIN) TABLET PO SCH (08:26)
[2020-01-07] MEDS: amLODIPine 5 MG (NORVASC) TAB PO SCH (08:26)
[2020-01-07] MEDS: lisINopril 20 MG (PRINIVIL) TABLET PO SCH (08:26)
--- NOTE | 2020-01-07 09:19 | NUR ---
NO B/M X2DAYS. PT TAKES ALL STOOL SOFTENERS THIS AM, TAKES MIRALAX IN CRANBERRY JUICE. THERAPY UPDATES RN THAT PATIENT HAS LARGE BM DURING THERAPY SESSION.
--- NOTE | 2020-01-07 09:44 | Physical Therapy Daily Note ---
PT Daily Note-Current Subjective Upon arrival, pt sitting up in recliner watching TV. Pt chair alarm on. Pt agrees to therapy tx. Pain Numeric Pain Scale: 0-No Pain Location: No Pain Reported Mental Status Patient Orientation: Person, [place] Transfers SCALE: Activities may be completed with or without assistive devices. 0-Ewdmkfhhro-wpqjnvm completes the activity by him/herself with no assistance from a helper. 5-Set-up or Clean-up Assistance-helper sets up or cleans up; patient completes activity. [place] assists only prior to or following the activity. 4-Supervision or Touching Assistance-helper provides verbal cues and/or touching/steadying and/or contact guard assistance as patient completes activity. Assistance may be provided throughout the activity or intermittently. 3-Partial/Moderate Assistance-helper does LESS THAN HALF the effort. [place] lifts, holds or supports trunk or limbs, but provides less than half the effort. 2-Substantial/Maximal Assistance-helper does MORE THAN HALF the effort. [place] lifts or holds trunk or limbs and provides more than half the effort. 7-Grmzmveky-xvxwyh does ALL the effort. Patient does none of the effort to complete the activity. Or, the assistance of 2 or more helpers is required for the patient to complete the activity. If activity was not attempted, code reason: 7-Patient Refused. 9-Not Applicable-not attempted and the patient did not perform the activity before the current illness, exacerbation or injury. 10-Not Attempted due to Environmental Limitations-(lack of equipment, weather restraints, etc.). 88-Not Attempted due to Medical Conditions or Safety Concerns. Sit to Stand (QC): 4 Toilet Transfer (QC): 4 Pt transfers sit<>stand w/ CGA. Pt toilet transfers at CGA. Weight Bearing Full Weight Bearing Full Weight Bearing Gait Training Does the Patient Walk?: Yes Walk 10 feet (QC): 4 Gait Assistive Device: FWW Pt ambulates from recliner to bathroom and back. VC's given, x3, to keep all 4 legs of FWW on floor at all times. Exercises Seated Therapy Exercises: Ankle pumps, Long arc quads, Hip flexion, Kicking activity, Hamstring Curls, Hip abd/add (manual resistance) Seated Reps: 20 Treatments Pt completes seated ex in recliner and then requests to use the bathroom. Pt is able to don/doff LE clothing w/out using UE support to steady self; ELECTRICAL SYSTEMS DESIGNER remains CGA. Pt needs assistance w/ pericare when finished. Pt stands at bathroom sink to wash/dry hands w/out using UE support to steady self. Pt in recliner w/ chair alarm ON, bedside table and call light w/in reach and all needs met at end of tx. Assessment Current Status: Good Progress PT Custodial Goals Custodial Goals PT Manufacturing Development Engineer Goals Time Frame: Jan 14, 2020 Roll Left & Right (QC): 6 Sit to Lying (QC): 6 Lying-Sitting on Side/Bed(QC): 6 Sit to Stand (QC): 6 Chair/Tcf-dy-Qfdnx Xfer(QC): 6 Toilet Transfer (QC): 6 Car Transfer (QC): 6 Does the Patient Walk: Yes Walk 10 feet (QC): 6 Walk 50ft with 2 Turns (QC): 6 Walk 150 ft (QC): 6 Walking 10ft on Uneven Surface: 6 1 Step (curb) (QC): 6 4 Steps (QC): 6 12 Steps (QC): 6 Picking up an Object (QC): 6 Does the Pt use WC or Scooter?: No Wheel 50 feet with 2 turns (QC: 9 Wheel 150 feet: 9 PT Plan Problem List Problem List: Activity Tolerance, Functional Strength, Safety, Balance, Gait, Transfer Treatment/Plan Treatment Plan: Continue Plan of Care Treatment Plan: Bed Mobility, Education, Functional Activity Vijay, Functional Strength, Group Therapy, Gait, Safety, Therapeutic Exercise, Transfers Treatment Duration: Jan 14, 2020 Frequency: At least 5 of 7 days/Wk (IRF) Estimated Hrs Per Day: 1.5 hours per day Patient and/or Family Agrees t: Yes Safety Risks/Education Patient Education: Correct Positioning, Safety Issues Teaching Recipient: Patient Teaching Methods: Discussion Response to Teaching: Verbalize Understanding, Reinforcement Needed (mulitple times) Time/GCodes Time In: 852 Time Out: 915 Total Billed Treatment Time: 23 Total Billed Treatment 1, EX x1 (15m), FA x1 (8m) AINSLEY KENNEDY ELECTRICAL SYSTEMS DESIGNER Jan 07, 2020 09:44
--- NOTE | 2020-01-07 11:22 | PM&R Progress Note ---
Subjective HPI/CC On Admission Date Seen by Provider: Jan 07, 2020 Time Seen by Provider: 10:30 Subjective/Events-last exam Nurse and patient have no issues Norvasc of 5 is now tolerated BP improved Had a large BM today Likely will go to [facility] since her confusion precludes her from going home independently. Pt unaware of this decision? Checked meds and labs Conferred with RN Reviewed therapy notes Review of Systems General: Fatigue Neurological: Confusion Objective Exam Vital Signs Vital Signs Date Time Temp Pulse Resp B/P (MAP) Pulse Ox O2 Delivery O2 Flow Rate FiO2 01/07/20 17:51 36.8 73 18 145/75 (98) 98 Room Air Capillary Refill : Less Than 3 Seconds General Appearance: No Apparent Distress, WD/WN, Chronically ill, Thin, Other (frail) HEENT: PERRL/EOMI, Normal ENT Inspection, Pharynx Normal Neck: Full Range of Motion, Normal Inspection, Non Tender, Supple, Carotid Bruit Respiratory: Chest Non Tender, Lungs Clear, No Accessory Muscle Use, No Re spiratory Distress, Decreased Breath Sounds Cardiovascular: Regular Rate, Rhythm, No Edema, No Gallop, No JVD, No Murmur, Normal Peripheral Pulses Gastrointestinal: Normal Bowel Sounds, No Organomegaly, No Pulsatile Mass, Non Tender, Soft Back: Normal Inspection, No CVA Tenderness, No Vertebral Tenderness Extremity: Normal Capillary Refill, Normal Inspection, Normal Range of Motion, Non Tender, No Calf Tenderness, No Pedal Edema Neurologic/Psychiatric: Alert, No Motor/Sensory Deficits, Normal Mood/Affect, 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 FIM Transfers Therapy Code Descriptions/Definitions Functional [place] Measure: 0=Not Assessed/NA 4=Minimal Assistance 1=Total Assistance 5=Supervision or Setup 2=Maximal Assistance 6=Modified [place] 3=Moderate Assistance 7=Complete IndependenceSCALE: Activities may be completed with or without assistive devices. 6-Lnuoexyqze-enuoumd completes the activity by him/herself with no assistance from a helper. 5-Set-up or Clean-up Assistance-helper sets up or cleans up; patient completes activity. [place] assists only prior to or following the activity. 4-Supervision or Touching Assistance-helper provides verbal cues and/or touching/steadying and/or contact guard assistance as patient completes activity. Assistance may be provided throughout the activity or intermittently. 3-Partial/Moderate Assistance-helper does LESS THAN HALF the effort. [place] lifts, holds or supports trunk or limbs, but provides less than half the effort. 2-Substantial/Maximal Assistance-helper does MORE THAN HALF the effort. [place] lifts or holds trunk or limbs and provides more than half the effort. 2-Fdrannjqv-xyykbi does ALL the effort. Patient does none of the effort to complete the activity. Or, the assistance of 2 or more helpers is required for the patient to complete the activity. If activity was not attempted, code reason: 7-Patient Refused. 9-Not Applicable-not attempted and the patient did not perform the activity before the current illness, exacerbation or injury. 10-Not Attempted due to Environmental Limitations-(lack of equipment, weather restraints, etc.). 88-Not Attempted due to Medical Conditions or Safety Concerns. Roll Left to Right (QC): 6 Sit to Lying (QC): 3 Sit to Stand (QC): 4 Chair/Vrl-ns-Vivwu Xfer(QC): 5 Car Transfer (QC): 5 Gait Training Does the Patient Walk?: Yes Distance: 150' x2 Walk 10 feet (QC): 4 Walk 50 ft with 2 Turns(QC): 5 Walk 150 ft (QC): 5 Walking 10ft/uneven surface-QC: 5 Gait Persons Needed: 1 Gait Assistive Device: FWW Wheelchair Training Does the Pt Use a Wheelchair?: No Wheel 50 ft with 2 turns (QC): 9 Wheel 150 ft (QC): 9 Stair Training Stair Training: Handrails/: 2 handrails #of Steps: 4 1 Step (curb) (QC): 5 4 Steps (QC): 5 12 Steps (QC): 5 Stairs: Pattern: Step to Balance Picking up an Object (QC): 5 ADL-Treatment Eating (QC): 6 Oral Hygiene (QC): 7 Bathing Location: L Arm, R Arm, L Upper Leg, R Upper Leg, L Lower Leg (including foot), R Lower Leg (including foot), Chest, Abdomen, Buttocks, Perineal Area Shower/Bathe Self (QC): 4 (SBA during all tasks in woer. Completes without LOB. ) Upper Body Dressing (QC): 6 (IND while seated.) Lower Body Dressing (QC): 4 (SBA all tasks in stance (pt threads LE's in stance, requires SBA, though use of gb)) On/Off Footwear (QC): 6 (IND while seated on sc.) Toileting Hygiene (QC): 7 Toilet Transfer (QC): 7 Assessment/Plan Assessment and Plan Assess & Plan/Chief Complaint Assessment: s/p acute ischemic CVA not a tPA candidate h/o hemorrhagic CVA Confusion acute on chronic? Asthma h/o PNA HTN HLP Plan: Monitor BP closely Home meds Lung monitoring IRF protocol Confusion monitoring AL at DC Fall risk (1) Acute ischemic left GOLD MINER BLASTING stroke Status: Acute (2) COPD without exacerbation Status: Chronic (3) History of stroke Status: Chronic (4) Elevated troponin Status: Acute (5) HLD (hyperlipidemia) Status: Chronic (6) HTN (hypertension) Status: Acute (7) CAD (coronary artery disease) Status: Chronic (8) Altered mental status Status: Acute (9) Aphasia Status: Acute GUILLE ALVARADO DO Jan 07, 2020 11:22
[2020-01-07] MEDS: ENOXAPARIN 40 MG/0.4 ML (LOVENOX) SYR SC SCH (12:43)
--- NOTE | 2020-01-07 17:33 | NUR ---
PT REFUSES SUPPER TRAY STATING, "THAT'S NOT MY TRAY AND IT'S NOT MY TEA." PT INCREASINGLY CONFUSED, NEEDING RE-ORIENTATION TO SITUATION. PT STATES, "MY RIDE IS COMING TO PICK ME UP." PT CONTINUES TO RISE UP OUT OF CHAIR, WANTING TO LEAVE, STATES,"MY NEPHEW IS COMING TO PICK ME UP INSTEAD OF MERI." AGITATION INCREASES, 1 TAB XANAX PRN GIVEN PO. ENC. 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 WILL CON'T TO MONITOR.
[2020-01-07 17:51] VITALS: BP 145/75
[2020-01-07] MEDS: MELATONIN 3 MG TABLET PO PRN (19:59)
[2020-01-07] MEDS: ATENOLOL 50 MG (TENORMIN) TAB PO SCH (20:01)
--- NOTE | 2020-01-07 20:02 | NUR ---
PATIENT HAD ADEQUATE BM EARLIER TODAY. BOWEL SOUNDS ACTIVE X4. COLACE ADMINISTERED. SENNA AND MIRALAX NOT ADMINISTERED.
[2020-01-08 05:34] VITALS: BP 135/75
[2020-01-08] MEDS: hydrALAZINE (APRESOLINE) 25 MG TAB PO SCH ×3 (05:37→21:40)
[2020-01-08] MEDS: polyethylene glycoL POWDER 17 GM (MIRALAX) PACK PO SCH ×2 (08:19→21:50)
[2020-01-08] MEDS: SENNOSIDES 8.6 MG (SENOKOT) TAB PO SCH ×2 (08:19→21:50)
[2020-01-08] MEDS: ASPIRIN E.C. 325 MG (ECOTRIN) TABLET PO SCH (08:19)
[2020-01-08] MEDS: amLODIPine 5 MG (NORVASC) TAB PO SCH (08:19)
[2020-01-08] MEDS: lisINopril 20 MG (PRINIVIL) TABLET PO SCH (08:19)
[2020-01-08] MEDS: DOCUSATE SODIUM 100 MG (COLACE) CAP PO SCH ×2 (08:19→21:41)
--- NOTE | 2020-01-08 10:14 | Cardiology Progress Note ---
Subjective Date Seen by Provider: Jan 08, 2020 Time Seen by Provider: 10:13 Subjective/Events-last exam Patient was seen at bedside, sitting comfortably, denied any pain. Review of Systems General: No Chills, No Night Sweats, No Fatigue, No Malaise, No Appetite, No Other HEENT: No Head Aches, No Visual Changes, No Eye Pain, No Ear Pain, No Dysphasia, No Sinus Congestion, No Post Nasal Drip, No Sore Throat, No Other Pulmonary: No Dyspnea, No Cough, No Pleuritic Chest Pain, No Other Cardiovascular: No: Chest Pain, Palpitations, Orthopnea, Paroxysmal Noc. Dyspnea, Edema, Lt Headedness, Other Objective-Cardiology Exam Last Set of Vital Signs Vital Signs 01/08/20 01/08/20 05:34 08:35 Temp 36.4 Pulse 61 Resp 16 B/P (MAP) 135/75 (95) Pulse Ox 96 O2 Delivery Room Air Capillary Refill : Less Than 3 Seconds I&O Intake and Output 01/08/20 00:00 Intake Total 1080 ml Balance 1080 ml Intake Oral 1080 ml # Voids 7 # Bowel Movements 1 General: Alert, Oriented X3, Cooperative HEENT: Atraumatic, PERRLA Neck: Supple, No JVD, No Thyromegaly Lungs: Clear to Auscultation, Normal Air Movement Heart: Regular Rate, Normal S1, Normal S2, No Murmurs Abdomen: Normal Bowel Sounds, Soft, No Tenderness, No Hepatosplenomegaly, No Masses Extremities: No Clubbing, No Cyanosis, No Edema, Normal Pulses, No Tenderness/Swelling Skin: No Rashes, No Breakdown, No Significant Lesion Neuro: Normal Speech, Cranial Nerves 3-12 NL Psych/Mental Status: Mood NL A/P-Cardiology Admission Diagnosis CVA CAD HTN HLP Assessment/Plan 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 Was outside of window to receive TPA. Improving. Receiving physical and occupational therapy. Continue to monitor Mild elevation in troponin, no acute EKG changes. Conservative management, continue on aspirin, probably type II [place]. Currently asymptomatic. Continue to monitor CAD- reported hx of angioplasty over 20 years ago per previous notes that were reviewed. Primary bark skinner is Dr. Raya in [place]. Hypertension, slightly better after increasing Norvasc. Continue to monitor blood pressure Hyperlipidemia, monitor lipids COPD Clinical Quality Measures DVT/VTE Risk/Contraindication: Risk Factor Score Per Nursin RFS Level Per Nursing on Admit: 4+=Very High PASQUALE TO MD Jan 08, 2020 10:14 am
--- NOTE | 2020-01-08 11:36 | PM&R Progress Note ---
Subjective HPI/CC On Admission Date Seen by Provider: Jan 08, 2020 Time Seen by Provider: 12:00 Subjective/Events-last exam Nurse and patient have stated no issues Norvasc of 5 is now tolerated and BP seems reasonable occurs at 430pm every day Had a large BM yesterday Likely will go to [facility] since her confusion precludes her from going home independently. Pt unaware of this decision? Checked meds and labs Conferred with RN Reviewed therapy notes Review of Systems General: Fatigue Neurological: Incoordination, Confusion Objective Exam Vital Signs Vital Signs Date Time Temp Pulse Resp B/P (MAP) Pulse Ox O2 Delivery O2 Flow Rate FiO2 01/08/20 08:35 Room Air 01/08/20 05:34 36.4 61 16 135/75 (95) 96 Capillary Refill : Less Than 3 Seconds General Appearance: No Apparent Distress, WD/WN, Chronically ill, Thin, Other (frail) HEENT: PERRL/EOMI, Normal ENT Inspection, Pharynx Normal Neck: Full Range of Motion, Normal Inspection, Non Tender, Supple, Carotid Br uit Respiratory: Chest Non Tender, Lungs Clear, No Accessory Muscle Use, No Respiratory Distress, Decreased Breath Sounds Cardiovascular: Regular Rate, Rhythm, No Edema, No Gallop, No JVD, No Murmur, Normal Peripheral Pulses Gastrointestinal: Normal Bowel Sounds, No Organomegaly, No Pulsatile Mass, Non Tender, Soft Back: Normal Inspection, No CVA Tenderness, No Vertebral Tenderness Extremity: Normal Capillary Refill, Normal Inspection, Normal Range of Motion, Non Tender, No Calf Tenderness, No Pedal Edema Neurologic/Psychiatric: Alert, No Motor/Sensory Deficits, Normal 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 FIM Transfers Therapy Code Descriptions/Definitions Functional [place] Measure: 0=Not Assessed/NA 4=Minimal Assistance 1=Total Assistance 5=Supervision or Setup 2=Maximal Assistance 6=Modified [place] 3=Moderate Assistance 7=Complete IndependenceSCALE: Activities may be completed with or without assistive devices. 0-Ryuvspneje-fizuquz completes the activity by him/herself with no assistance from a helper. 5-Set-up or Clean-up Assistance-helper sets up or cleans up; patient completes activity. [place] assists only prior to or following the activity. 4-Supervision or Touching Assistance-helper provides verbal cues and/or touching/steadying and/or contact guard assistance as patient completes activity. Assistance may be provided throughout the activity or intermittently. 3-Partial/Moderate Assistance-helper does LESS THAN HALF the effort. [place] li fts, holds or supports trunk or limbs, but provides less than half the effort. 2-Substantial/Maximal Assistance-helper does MORE THAN HALF the effort. [place] lifts or holds trunk or limbs and provides more than half the effort. 1-Pkapvivom-egqlfr does ALL the effort. Patient does none of the effort to complete the activity. Or, the assistance of 2 or more helpers is required for the patient to complete the activity. If activity was not attempted, code reason: 7-Patient Refused. 9-Not Applicable-not attempted and the patient did not perform the activity before the current illness, exacerbation or injury. 10-Not Attempted due to Environmental Limitations-(lack of equipment, weather restraints, etc.). 88-Not Attempted due to Medical Conditions or Safety Concerns. Roll Left to Right (QC): 6 Sit to Lying (QC): 3 Sit to Stand (QC): 4 Chair/Lha-by-Yhrku Xfer(QC): 5 Car Transfer (QC): 5 Gait Training Does the Patient Walk?: Yes Distance: 150' x2 Walk 10 feet (QC): 4 Walk 50 ft with 2 Turns(QC): 5 Walk 150 ft (QC): 5 Walking 10ft/uneven surface-QC: 5 Gait Persons Needed: 1 Gait Assistive Device: FWW Wheelchair Training Does the Pt Use a Wheelchair?: No Wheel 50 ft with 2 turns (QC): 9 Wheel 150 ft (QC): 9 Stair Training Stair Training: Handrails/: 2 handrails #of Steps: 4 1 Step (curb) (QC): 5 4 Steps (QC): 5 12 Steps (QC): 5 Stairs: Pattern: Step to Balance Picking up an Object (QC): 5 ADL-Treatment Eating (QC): 6 Oral Hygiene (QC): 7 Bathing Location: L Arm, R Arm, L Upper Leg, R Upper Leg, L Lower Leg (including foot), R Lower Leg (including foot), Chest, Abdomen, Buttocks, Perineal Area Shower/Bathe Self (QC): 4 (SBA during all tasks in shwoer. Completes without LOB. ) Upper Body Dressing (QC): 6 (IND while seated.) Lower Body Dressing (QC): 4 (SBA all tasks in stance (pt threads LE's in stance, requires SBA, though use of gb)) On/Off Footwear (QC): 6 (IND while seated on sc.) Toileting Hygiene (QC): 7 Toilet Transfer (QC): 7 Assessment/Plan Assessment and Plan Assess & Plan/Chief Complaint Assessment: s/p acute ischemic CVA not a tPA candidate h/o hemorrhagic CVA Confusion acute on chronic? 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
[2020-01-08] MEDS: ENOXAPARIN 40 MG/0.4 ML (LOVENOX) SYR SC SCH (12:59)
[2020-01-08 16:12] VITALS: BP 133/68
[2020-01-08] MEDS: ATENOLOL 50 MG (TENORMIN) TAB PO SCH (21:40)
[2020-01-08] MEDS: MELATONIN 3 MG TABLET PO PRN (21:41)
[2020-01-09] MEDS: hydrALAZINE (APRESOLINE) 25 MG TAB PO SCH ×3 (05:30→21:27)
[2020-01-09 05:35] VITALS: BP 118/72
[2020-01-09 05:53] LABS: BASOPHILS # (AUTO) 0.1 10^3/uL (0.0-0.1); BASOPHILS % (AUTO) 1 % (0-10); EOSINOPHILS # (AUTO) 0.4 10^3/uL (0.0-0.3); EOSINOPHILS % (AUTO) 4 % (0-10); HEMATOCRIT 36 % (35-52); HEMOGLOBIN 11.6 G/DL (11.5-16.0); LYMPHOCYTES # (AUTO) 2.8 X 10^3 (1.0-4.0); LYMPHOCYTES % (AUTO) 33 % (12-44); MEAN CORPUSCULAR HEMOGLOBIN 28 PG (25-34); MEAN CORPUSCULAR HGB CONC 33 G/DL (32-36); MEAN CORPUSCULAR VOLUME 87 FL (80-99); MEAN PLATELET VOLUME 11.4 FL (7.4-10.4); MONOCYTES # (AUTO) 0.8 X 10^3 (0.0-1.0); MONOCYTES % (AUTO) 10 % (0-12); NEUTROPHILS # (AUTO) 4.4 X 10^3 (1.8-7.8); NEUTROPHILS % (AUTO) 52 % (42-75); PLATELET COUNT 254 10^3/uL (130-400); RED CELL DISTRIBUTION WIDTH 13.8 % (10.0-14.5); WHITE BLOOD COUNT 8.4 10^3/uL (4.3-11.0)
[2020-01-09 06:05] LABS: ALBUMIN 3.3 GM/DL (3.2-4.5); POTASSIUM 4.1 MMOL/L (3.6-5.0)
[2020-01-09 06:07] LABS: CALCIUM 9.2 MG/DL (8.5-10.1)
[2020-01-09 06:08] LABS: TOTAL PROTEIN 5.6 GM/DL (6.4-8.2)
[2020-01-09 06:10] LABS: BILIRUBIN,TOTAL 0.4 MG/DL (0.1-1.0)
[2020-01-09 06:11] LABS: CREATININE SERUM 1.01 MG/DL (0.60-1.30)
[2020-01-09 08:00] VITALS: BP 105/58
--- NOTE | 2020-01-09 08:53 | Cardiology Progress Note ---
Subjective Date Seen by Provider: Jan 09, 2020 Time Seen by Provider: 08:52 Subjective/Events-last exam Patient sitting up in chair, denies any chest pain or dyspnea. No new complaints. Review of Systems General: No Chills, No Night Sweats, No Fatigue, No Malaise, No Appetite, No Other HEENT: No Head Aches, No Visual Changes, No Eye Pain, No Ear Pain, No Dysphasia, No Sinus Congestion, No Post Nasal Drip, No Sore Throat, No Other Pulmonary: No Dyspnea, No Cough, No Pleuritic Chest Pain, No Other Cardiovascular: No: Chest Pain, Palpitations, Orthopnea, Paroxysmal Noc. Dyspnea, Edema, Lt Headedness, Other Objective-Cardiology Exam Last Set of Vital Signs Vital Signs 01/09/20 01/09/20 05:35 09:00 Temp 36.8 Pulse 64 Resp 18 B/P (MAP) 118/72 (87) Pulse Ox 97 O2 Delivery Room Air Capillary Refill : Less Than 3 Seconds I&O Intake and Output 01/09/20 00:00 Intake Total 1270 ml Balance 1270 ml Intake Oral 1270 ml # Voids 7 # Bowel Movements 1 General: Alert, Oriented X3, Cooperative HEENT: Atraumatic, PERRLA Neck: Supple, No JVD, No Thyromegaly Lungs: Clear to Auscultation, Normal Air Movement Heart: Regular Rate, Normal S1, Normal S2, No Murmurs Abdomen: Normal Bowel Sounds, Soft, No Tenderness, No Hepatosplenomegaly, No Masses Extremities: No Clubbing, No Cyanosis, No Edema, Normal Pulses, No Tenderness/Swelling Skin: No Rashes, No Breakdown, No Significant Lesion Neuro: Normal Speech, Cranial Nerves 3-12 NL Psych/Mental Status: Mood NL Results Lab Laboratory Tests 01/09/20 05:25 A/P-Cardiology Admission Diagnosis CVA CAD HTN HLP Assessment/Plan 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 Was outside of window to receive TPA. I mproving. Receiving physical and occupational therapy. Continue to monitor Mild elevation in troponin, no acute EKG changes. Conservative management, continue on aspirin, probably type II [place]. Currently asymptomatic. Continue to monitor CAD- reported hx of angioplasty over 20 years ago per previous notes that were reviewed. Primary outside machinist helper is Dr. Raya in [place]. Hypertension, slightly better after increasing Norvasc. Continue to monitor blood pressure Hyperlipidemia, monitor lipids COPD Patient was seen and evaluated with Franca, examination performed, management plan was discussed, agree with the current scribed note, I made few changes to the note using Italic font. Patient was seen at bedside sitting comfortably, no active pain. Discussed management plan recommended stress test as an outpatient Patient will follow with her primary outside machinist helper Blood pressure is better controlled. Continue on current medicine Clinical Quality Measures DVT/VTE Risk/Contraindication: Risk Factor Score Per Nursin RFS Level Per Nursing on Admit: 4+=Very High FRANCA PACK Jan 09, 2020 8:53 am PASQUALE TO MD Jan 09, 2020 10:59 am
[2020-01-09] MEDS: DOCUSATE SODIUM 100 MG (COLACE) CAP PO SCH ×2 (08:59→20:18)
[2020-01-09] MEDS: SENNOSIDES 8.6 MG (SENOKOT) TAB PO SCH ×2 (08:59→20:15)
[2020-01-09] MEDS: polyethylene glycoL POWDER 17 GM (MIRALAX) PACK PO SCH ×2 (08:59→21:26)
[2020-01-09] MEDS: amLODIPine 5 MG (NORVASC) TAB PO SCH (09:00)
[2020-01-09] MEDS: lisINopril 20 MG (PRINIVIL) TABLET PO SCH (09:00)
[2020-01-09] MEDS: ASPIRIN E.C. 325 MG (ECOTRIN) TABLET PO SCH (09:00)
--- NOTE | 2020-01-09 09:00 | NUR ---
APPEARS MORE PERSONABLE AND LESS CONFUSED THIS MORNING. STATES SLEPT GOOD. DENIES PAIN.
--- NOTE | 2020-01-09 09:23 | Occupational Ther Daily Note ---
OT Current Status-Daily Note Subjective 0800 Pt seen in recliner chair this am. Pt agrees to therapy, continues to be oriented to person only. Reoriented to place/ situation/ time. 1130 : Pt seen in recliner, pt denies pain. Pt oriented to person and situation (stating, "So, I had a stroke?"). Pt agrees to OT session. Mental Status/Objective Patient Orientation: Person ADL-Treatment Therapy Code Descriptions/Definitions Functional [place] Measure: 0=Not Assessed/NA 4=Minimal Assistance 1=Total Assistance 5=Supervision or Setup 2=Maximal Assistance 6=Modified [place] 3=Moderate Assistance 7=Complete IndependenceSCALE: Activities may be completed with or without assistive devices. 8-Zqkkcpmued-bmxkvic completes the activity by him/herself with no assistance from a helper. 5-Set-up or Clean-up Assistance-helper sets up or cleans up; patient completes activity. [place] assists only prior to or following the activity. 4-Supervision or Touching Assistance-helper provides verbal cues and/or touching/steadying and/or contact guard assistance as patient completes activity. Assistance may be provided throughout the activity or intermittently. 3-Partial/Moderate Assistance-helper does LESS THAN HALF the effort. [place] lifts, holds or supports trunk or limbs, but provides less than half the effort. 2-Substantial/Maximal Assistance-helper does MORE THAN HALF the effort. [place] lifts or holds trunk or limbs and provides more than half the effort. 1-Hrflgewcu-jcqabc does ALL the effort. Patient does none of the effort to complete the activity. Or, the assistance of 2 or more helpers is required for the patient to complete the activity. If activity was not attempted, code reason: 7-Patient Refused. 9-Not Applicable-not attempted and the patient did not perform the activity before the current illness, exacerbation or injury. 10-Not Attempted due to Environmental Limitations-(lack of equipment, weather restraints, etc.). 88-Not Attempted due to Medical Conditions or Safety Concerns. Eating (QC): 6 Oral Hygiene (QC): 4 (SUP in stance at mirror) Bathing Location: L Arm, R Arm, L Upper Leg, R Upper Leg, L Lower Leg (including foot), R Lower Leg (including foot), Chest, Abdomen, Buttocks, Perineal Area Shower/Bathe Self (QC): 4 (SBA in stance SUP during sit pt able to reach all areas, does not utilize gbs for stance but no LOB throughout.) Upper Body Dressing (QC): 6 (IND) Lower Body Dressing (QC): 4 (SUP in stance.) On/Off Footwear: 6 (IND) Toileting Hygiene (QC): 4 (SUP, pt completes with thoroughness post-BM) Toilet Transfer (QC): 4 (SBA, use of walker. ) Other Treatment Pt completes ADLs in shower this am. Pt grunts each attempt to stand, pt denies pain, just states tired. Pt completes cognitive processing/ problem solving/ attention activity with increased accuracy from last week. Pt completes all items (small visual-spacial/ fine motor/ problem solving task) within last 7 minutes of session. Pt educated on activity and advancement in problem solving, pt nods in agreement and states, "Well, yes, I'm not stupid." All needs met, call light in reach, chair alarm on. 1130: Pt sit to stand w/out complaints, ambulates around therapy commons with SBA and walker with no LOB/ good balance. Pt ambulates to laundry room, able to find with minimal cueing. Pt opens dryer and stands to complete folding task for ~20 min with good attention to task/ detail. Pt reaches into dryer and back up to erect stance without any LOB. Pt completes with SBA. Pt able to maintain conversation (though requires processing time) and complete task without cues for continuation. Pt ambulates back to room, mod cues for directionality/ problem solving. Pt educated on d/c tomorrow once more, pt left with all questions answered, call light in reach, all needs met, chair alarm on. Education OT Patient Education: Correct positioning, Exercise program, Home exercise program, Modified ADL techniques, Purpose of tx/functional activities, Safety issues Teaching Recipient: Patient Teaching Methods: Demonstration, Discussion Response to Teaching: Verbalize Understanding, Return Demonstration, Reinforcement Needed OT Short Term Goals Short Term Goals Time Frame: Jan 09, 2020 Lower body dressin Putting on/taking off footwear: 4 OT Fci Goals Fci Goals Time Frame: Jan 14, 2020 Eating (QC): 6 Oral Hygiene (QC): 6 Toileting Hygiene (QC): 6 Shower/Bathe Self (QC): 6 Upper Body Dressing (QC): 6 Lower Body Dressing (QC): 6 On/Off Footwear (QC): 6 1=Demonstrate adherence to instructed precautions during ADL tasks. 2=Patient will verbalize/demonstrate understanding of assistive devices/modifications for ADL. 3=Patient will improve strength/tolerance for activity to enable patient to perform ADL's. OT Education/Plan Problem List/Assessment Assessment: Decreased Activ Tolerance, Decreased UE Strength, Impaired Cognition, Impaired I ADL's, Impaired Self-Care Skills Discharge Recommendations Plan/Recommendations: Continue POC Therapy Discharge Recommendati: 24 Hour Supervision Treatment Plan/Plan of Care Treatment,Training & Education: Yes Patient would benefit from OT for education, treatment and training to promote independence in ADL's, mobility, safety and/or upper extremity function for ADL's. Plan of Care: ADL Retraining, Functional Mobility, Group Exercise/Act as Ind, UE Funct Exercise/Act Treatment Duration: Jan 27, 2020 Frequency: At least 5 of 7 days/Wk (IRF) Estimated Hrs Per Day: 1.5 hours per day Rehab Potential: Fair Time/GCodes Start Time: 08:00 (1130) Stop Time: 09:00 (1200) Total Time Billed (hr/min): 90 (60+30) Billed Treatment Time 0800: 1, ADL 3, FA (60) 1130: 1, FA 2 (30) Total: 90 LONNIE PERES OTR Jan 09, 2020 09:23
--- NOTE | 2020-01-09 09:42 | PM&R Progress Note ---
Subjective HPI/CC On Admission Date Seen by Provider: Jan 09, 2020 Time Seen by Provider: 09:25 Subjective/Events-last exam Melatonin helped her sleep Will go to assisted living [place] tomorrow Doesn't want to use the walker so will try to use less assistive devices before going to [place] but I don't know if that is realistic because of her confusion Had a BM today Checked meds and labs Conferred with RN Reviewed therapy notes Review of Systems Neurological: Weakness, Confusion Objective Exam Vital Signs Vital Signs Date Time Temp Pulse Resp B/P (MAP) Pulse Ox O2 Delivery O2 Flow Rate FiO2 01/09/20 17:12 36.6 72 18 149/82 (104) 99 Room Air Capillary Refill : Less Than 3 Seconds General Appearance: No Apparent Distress, WD/WN, Chronically ill, Thin, Other (frail) HEENT: PERRL/EOMI, Normal ENT Inspection, Pharynx Normal Neck: Full Range of Motion, Normal Inspection, Non Tender, Supple, Carotid Bruit Respiratory: Chest Non Tender, Lungs Clear, No Accessory Muscle Use, No Respiratory Distress, Decreased Breath Sounds Cardiovascular: Regular Rate, Rhythm, No Edema, No Gallop, No JVD, No Murmur, Normal Peripheral Pulses Gastrointestinal: Normal Bowel Sounds, No Organomegaly, No Pulsatile Mass, Non Tender, Soft Back: Normal Inspection, No CVA Tenderness, No Vertebral Tenderness Extremity: Normal Capillary Refill, Normal Inspection, Normal Range of Motion, Non Tender, No Calf Tenderness, No Pedal Edema Neurologic/Psychiatric: Alert, No Motor/Sensory Deficits, Normal Mood/Affect, valve mechanic II-XII Norm as Tested, Abnormal Gait, Aphasia (partial), Depressed Affect, Disoriented, Motor Weakness (4/5 motor weakness of legs) Skin: Normal Color, Warm/Dry Lymphatic: No Adenopathy Results/Procedures Lab Laboratory Tests 01/09/20 05:25 Patient resulted labs reviewed. FIM Transfers Therapy Code Descriptions/Definitions Functional [place] Measure: 0=Not Assessed/NA 4=Minimal Assistance 1=Total Assistance 5=Supervision or Setup 2=Maximal Assistance 6=Modified [place] 3=Moderate Assistance 7=Complete IndependenceSCALE: Activities may be completed with or without assistive devices. 5-Nbignbwpoc-ssssbfv completes the activity by him/herself with no assistance from a helper. 5-Set-up or Clean-up Assistance-helper sets up or cleans up; patient completes activity. [place] assists only prior to or following the activity. 4-Supervision or Touching Assistance-helper provides verbal cues and/or touching/steadying and/or contact guard assistance as patient completes activity. Assistance may be provided throughout the activity or intermittently. 3-Partial/Moderate Assistance-helper does LESS THAN HALF the effort. [place] lifts, holds or supports trunk or limbs, but provides less than half the effort. 2-Substantial/Maximal Assistance-helper does MORE THAN HALF the effort. [place] lifts or holds trunk or limbs and provides more than half the effort. 5-Wmlwgrxwn-mufhtp does ALL the effort. Patient does none of the effort to complete the activity. Or, the assistance of 2 or more helpers is required for the patient to complete the activity. If activity was not attempted, code reason: 7-Patient Refused. 9-Not Applicable-not attempted and the patient did not perform the activity before the current illness, exacerbation or injury. 10-Not Attempted due to Environmental Limitations-(lack of equipment, weather restraints, etc.). 88-Not Attempted due to Medical Conditions or Safety Concerns. Roll Left to Right (QC): 6 Sit to Lying (QC): 3 Sit to Stand (QC): 4 Chair/Rzh-nu-Iuwrf Xfer(QC): 5 Car Transfer (QC): 5 Gait Training Does the Patient Walk?: Yes Distance: 150' x2 Walk 10 feet (QC): 4 Walk 50 ft with 2 Turns(QC): 5 Walk 150 ft (QC): 5 Walking 10ft/uneven surface-QC: 5 Gait Persons Needed: 1 Gait Assistive Device: FWW Wheelchair Training Does the Pt Use a Wheelchair?: No Wheel 50 ft with 2 turns (QC): 9 Wheel 150 ft (QC): 9 Stair Training Stair Training: Handrails/: 2 handrails #of Steps: 4 1 Step (curb) (QC): 5 4 Steps (QC): 5 12 Steps (QC): 5 Stairs: Pattern: Step to Balance Picking up an Object (QC): 5 ADL-Treatment Eating (QC): 6 Oral Hygiene (QC): 4 (SUP in stance at mirror) Bathing Location: L Arm, R Arm, L Upper Leg, R Upper Leg, L Lower Leg (including foot), R Lower Leg (including foot), Chest, Abdomen, Buttocks, Perineal Area Shower/Bathe Self (QC): 4 (SBA in stance SUP during sit pt able to reach all areas, does not utilize gbs for stance but no LOB throughout.) Upper Body Dressing (QC): 6 (IND) Lower Body Dressing (QC): 4 (SUP in stance.) On/Off Footwear (QC): 6 (IND) Toileting Hygiene (QC): 4 (SUP, pt completes with thoroughness post-BM) Toilet Transfer (QC): 4 (SBA, use of walker. ) Assessment/Plan Assessment and Plan Assess & Plan/Chief Complaint Assessment: s/p acute ischemic CVA not a tPA candidate h/o hemorrhagic CVA Confusion acute on chronic? 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
--- NOTE | 2020-01-09 09:56 | Physical Therapy Daily Note ---
PT Daily Note-Current Subjective Pt agrees to Rx. Somewhat confused at times during the Rx and needed reoriented or repeated instructions. No c/o pain or discomfort. Pain Location: No Pain Reported Mental Status Patient Orientation: Person needed thorough and repeated demonstration and instruction for exercises and functional mobility Transfers SCALE: Activities may be completed with or without assistive devices. 1-Onkqqbpodp-qepzeuk completes the activity by him/herself with no assistance from a helper. 5-Set-up or Clean-up Assistance-helper sets up or cleans up; patient completes activity. [place] assists only prior to or following the activity. 4-Supervision or Touching Assistance-helper provides verbal cues and/or touching/steadying and/or contact guard assistance as patient completes activity. Assistance may be provided throughout the activity or intermittently. 3-Partial/Moderate Assistance-helper does LESS THAN HALF the effort. [place] lifts, holds or supports trunk or limbs, but provides less than half the effort. 2-Substantial/Maximal Assistance-helper does MORE THAN HALF the effort. [place] l ifts or holds trunk or limbs and provides more than half the effort. 6-Ztrcdxqqe-wkuagr does ALL the effort. Patient does none of the effort to complete the activity. Or, the assistance of 2 or more helpers is required for the patient to complete the activity. If activity was not attempted, code reason: 7-Patient Refused. 9-Not Applicable-not attempted and the patient did not perform the activity before the current illness, exacerbation or injury. 10-Not Attempted due to Environmental Limitations-(lack of equipment, weather restraints, etc.). 88-Not Attempted due to Medical Conditions or Safety Concerns. Roll Left & Right (QC): 6 Sit to Lying (QC): 6 Lying to Sitting/Side of Bed(Q: 6 Sit to Stand (QC): 6 Chair/Xmk-cu-Xsodw Xfer(QC): 6 Toilet Transfer (QC): 6 Car Transfer (QC): 6 Weight Bearing Full Weight Bearing Full Weight Bearing Gait Training Does the Patient Walk?: Yes Walk 10 feet (QC): 6 Walk 50 ft with 2 Turns(QC): 6 Walk 150 ft (QC): 6 Walking 10ft/uneven surface-QC: 6 Gait Persons Needed: 1 Gait Assistive Device: FWW Pt. ambulated with FWW and needed reminders to keep device on floor and utilize wheels. Pt. walks with gaze at floor and slow, careful, Pt. states "Im not going to use a walker at home". Pt. needs directed at every turn,no LOB. will trial gait without device in PM Stair Training Stair Training: Handrails/: 1 handrail (both hands) #of Steps: 4 1 Step (curb) (QC): 4 4 Steps (QC): 4 12 Steps (QC): 88 Stairs: Pattern: Step to pt. used reciprocal and step to, pt. sometimes put both hands on one rail and other times just one. Pt. states she wont use her steps much. states she has 3 at home. this was trialed x 2 as pt. does not have patent approach etc Balance Picking up an Object (QC): 6 Exercises Supine Ex: Bridging, Ankle pumps, Quad Set, Rolling, Glut sets, Heel Slides, Short Arc Quads, Scooting, Straight leg raise, Hip abd/add Supine Reps: 10 needs repeated instruction and cuing for technique etc Assessment Current Status: Good Progress pt. will likely not use device at home, will trial this later, pt. needs s upervision for all. in chair after Rx with call mitchell at hand and alarm on chair insitu PT Sports Photographer Goals Sports Photographer Goals PT Sports Photographer Goals Time Frame: Jan 14, 2020 Roll Left & Right (QC): 6 Sit to Lying (QC): 6 Lying-Sitting on Side/Bed(QC): 6 Sit to Stand (QC): 6 Chair/Fwh-yk-[place] Xfer(QC): 6 Toilet Transfer (QC): 6 Car Transfer (QC): 6 Does the Patient Walk: Yes Walk 10 feet (QC): 6 Walk 50ft with 2 Turns (QC): 6 Walk 150 ft (QC): 6 Walking 10ft on Uneven Surface: 6 1 Step (curb) (QC): 6 4 Steps (QC): 6 12 Steps (QC): 6 Picking up an Object (QC): 6 Does the Pt use WC or Scooter?: No Wheel 50 feet with 2 turns (QC: 9 Wheel 150 feet: 9 PT Plan Treatment/Plan Treatment Plan: Continue Plan of Care Treatment Plan: Bed Mobility, Education, Functional Activity Vijay, Functional Strength, Group Therapy, Gait, Safety, Therapeutic Exercise, Transfers Treatment Duration: Jan 14, 2020 Frequency: At least 5 of 7 days/Wk (IRF) Estimated Hrs Per Day: 1.5 hours per day Patient and/or Family Agrees t: Yes Safety Risks/Education Patient Education: Gait Training, Transfer Techniques, Steps, Correct Positioning, Disease Process, Safety Issues Teaching Recipient: Patient Teaching Methods: Demonstration, Discussion Response to Teaching: Verbalize Understanding, Return Demonstration, Reinforcement Needed Time/GCodes Time In: 800 Time Out: 900 Total Billed Treatment Time: 60 Total Billed Treatment 1,FA30m,GT15m,EX15m NAILA SEGOVIA LOSS PREVENTION AND SAFETY MANAGER Jan 09, 2020 09:56
--- NOTE | 2020-01-09 11:28 | Physical Therapy Daily Note ---
PT Daily Note-Current Subjective Pt. up in recliner, agrees to Rx with encouragement Pain Location: No Pain Reported Mental Status pt. somewhat confused, reports conflicting things about how she get up and around at home. States " Emily never really fallen but emily slid down at home" Transfers SCALE: Activities may be completed with or without assistive devices. 2-Ymtmoenhrv-fklcsfm completes the activity by him/herself with no assistance from a helper. 5-Set-up or Clean-up Assistance-helper sets up or cleans up; patient completes activity. [place] assists only prior to or following the activity. 4-Supervision or Touching Assistance-helper provides verbal cues and/or touching/steadying and/or contact guard assistance as patient completes activity. Assistance may be provided throughout the activity or intermittently. 3-Partial/Moderate Assistance-helper does LESS THAN HALF the effort. [place] lifts, holds or supports trunk or limbs, but provides less than half the effort. 2-Substantial/Maximal Assistance-helper does MORE THAN HALF the effort. [place] lifts or holds trunk or limbs and provides more than half the effort. 3-Suyjroomf-lwjwlk does ALL the effort. Patient does none of the effort to complete the activity. Or, the assistance of 2 or more helpers is required for the patient to complete the activity. If activity was not attempted, code reason: 7-Patient Refused. 9-Not Applicable-not attempted and the patient did not perform the activity before the current illness, exacerbation or injury. 10-Not Attempted due to Environmental Limitations-(lack of equipment, weather restraints, etc.). 88-Not Attempted due to Medical Conditions or Safety Concerns. all sit to stand TRFs SBA, pt. uses hands for all sit to stands. WONG components tested this Rx for no use of hands for SPT, pt. has def need of hands Weight Bearing Full Weight Bearing Full Weight Bearing Gait Training Does the Patient Walk?: Yes Gait Assistive Device: None pt. was trialed for no device. Pt. walks with hands held tightly at her side, was encouraged to swing hands/arms for safety and balance. Pt. ambulated backwrds, forwards and left and right with CGA no oz LOB. Gait with FWW safer but unsure pt will continue use at home Exercises Seated Therapy Exercises: Sit to stand, Long arc quads, Hip flexion Seated Reps: 10 Treatments balance trials for heel toe or long step with pt unable to hold without assist, unable to SLS, rhomberg 10 sec with no LOB, chair TRF required hands. Assessment Current Status: Good Progress pts balance trials indicate she is safer for gait with FWW . PT Snf Goals Snf Goals PT Snf Goals Time Frame: Jan 14, 2020 Roll Left & Right (QC): 6 Sit to Lying (QC): 6 Lying-Sitting on Side/Bed(QC): 6 Sit to Stand (QC): 6 Chair/Whg-nl-Woruj Xfer(QC): 6 Toilet Transfer (QC): 6 Car Transfer (QC): 6 Does the Patient Walk: Yes Walk 10 feet (QC): 6 Walk 50ft with 2 Turns (QC): 6 Walk 150 ft (QC): 6 Walking 10ft on Uneven Surface: 6 1 Step (curb) (QC): 6 4 Steps (QC): 6 12 Steps (QC): 6 Picking up an Object (QC): 6 Does the Pt use WC or Scooter?: No Wheel 50 feet with 2 turns (QC: 9 Wheel 150 feet: 9 PT Plan Treatment/Plan Treatment Plan: Continue Plan of Care Treatment Plan: Bed Mobility, Education, Functional Activity Vijay, Functional Strength, Group Therapy, Gait, Safety, Therapeutic Exercise, Transfers Treatment Duration: Jan 14, 2020 Frequency: At least 5 of 7 days/Wk (IRF) Estimated Hrs Per Day: 1.5 hours per day Patient and/or Family Agrees t: Yes Safety Risks/Education Patient Education: Gait Training, Transfer Techniques, Correct Positioning, Disease Process, Safety Issues Teaching Recipient: Patient Teaching Methods: Demonstration, Discussion Response to Teaching: Verbalize Understanding, Return Demonstration, Reinforcement Needed Time/GCodes Time In: 1100 Time Out: 1130 Total Billed Treatment Time: 30 Total Billed Treatment 1,EX10m,GT20 NAILA SEGOVIA TELEGRAPHIC TYPEWRITER MECHANIC Jan 09, 2020 11:28
--- NOTE | 2020-01-09 12:23 | Speech Therapy Progress Note ---
Therapy Progress Note Speech services not rendered this date as the speech therapist is unavailable. Will proceed with POC 01/10/2020. HSAWNA AUGUSTINE PT Jan 09, 2020 12:23
[2020-01-09] MEDS: ENOXAPARIN 40 MG/0.4 ML (LOVENOX) SYR SC SCH (12:44)
--- NOTE | 2020-01-09 13:19 | NUR ---
CM/SS DISCHARGE PLANNING Patient will discharge tomorrow and will admit as a resident at [facility]. [facility] will transport patient, staff will call when patient ready and they will come soon thereafter. Spoke with grandson/DPOA Jc this a.m. x 3. He continues to work and has attempted to juggle his time regarding care planning for patient. He will not be available until after his work tomorrow so arranged for [facility] to transport patient from hospital. Answered his questions to his satisfaction regarding review of other options, namely SNF; he then concluded the plan would remain [facility]. Jc continues to work toward getting a full DPOA in place for patient. Jc is also pursuing FMLA in anticipation of ongoing arrangements to finalize, freelance copywriter offered to assist with the physician statement on his behalf. Continue toward discharge, assist as appropriate.
--- NOTE | 2020-01-09 15:01 | NUR ---
met w/ pt as she was sitting at a table in the [facility] area. She has [employer] background and spoke of two sons and a larger family that is spread out over [place] and [place]. She seemed to be in good spirit and doing well.
[2020-01-09 17:12] VITALS: BP 149/82
[2020-01-09] MEDS ORDERED: ATOR40TA PO (19:53)
[2020-01-09] MEDS ORDERED: AMLO5TAB9 PO (19:53)
[2020-01-09] MEDS ORDERED: HYDR-3923 PO (19:53)
[2020-01-09] MEDS ORDERED: LISI-552 PO (19:53)
[2020-01-09] MEDS ORDERED: ASPI325T32 PO (19:53)
--- NOTE | 2020-01-09 19:54 | D/C HH Face to Face Order ---
D/C Face to Face Orders Reconcile Patient Problems Problems Reviewed?: Yes Instructions for Patient Via [facility], Patient Instructions/FollowUp: Dr Penn as directed Physician to follow Patient: Isamar Discharge Diet for Home: No Restrictions Patient Problems: CVA Confusion Patient Data-Allergies,Ht & Wt Patient Allergies: Coded Allergies: No Known Drug Allergies (Unverified , 06/19/19) Height (Feet): 5 Height (Inches): 5.00 Weight (Pounds): 119 Weight (Ounces): 9.0 Home Health Need/Face to Face Date of Face to Face: Jan 09, 2020 Clinical Findings: Generalized weakness and fatigue, Immune-compromised, Instability, Muscle weakness, Unsteady gait I have seen Pt wttr-ek-nfit: Yes Discharged To: Home Diagnosis/Conditions: CVA Confusion Patient is Homebound due to: Nieves fall risk due to instabilty, Muscle weakness Homebound Status Due to the above stated illness, injury or surgical procedure (medical condition or diagnosis) and associated clinical findings, the patient is homebound because of his/her inability to leave home except with aid of a supportive device and/or person AND leaving the home requires a considerable and taxing effort or is medically contraindicated. Pt req the following assistanc: Walker Home Health Nursing Orders Home Health Services Order: Materials Inspector-Evaluate & Treat, Physical Therapy-Evaluate & Treat Certify Stmt I certify that this patient is under my care and that I, a nurse practitioner or a physician; a accounting assistant working with me, had a face to face encounter that - meets the physician face to face encounter requirements with this patient as dated. GUILLE ALVARADO DO Jan 09, 2020 19:54
[2020-01-09] MEDS: MELATONIN 3 MG TABLET PO PRN (20:15)
[2020-01-09] MEDS: ATENOLOL 50 MG (TENORMIN) TAB PO SCH (20:18)
[2020-01-10 05:01] VITALS: BP 145/67
[2020-01-10] MEDS: hydrALAZINE (APRESOLINE) 25 MG TAB PO SCH (06:02)
--- NOTE | 2020-01-10 07:13 | Discharge Summary ---
Diagnosis/Chief Complaint Date of Admission Dec 29, 2019 at 10:15 Date of Discharge Discharge Date: Jan 10, 2020 Discharge Diagnosis Assessment: s/p acute ischemic CVA not a tPA candidate h/o hemorrhagic CVA Confusion acute on chronic? Asthma h/o PNA HTN HLP Plan: Monitor BP closely Home meds Lung monitoring IRF protocol Confusion monitoring AL at DC Fall risk (1) Acute ischemic left WHEEL TUNER stroke Status: Acute (2) COPD without exacerbation Status: Chronic (3) History of stroke Status: Chronic (4) Elevated troponin Status: Acute (5) HLD (hyperlipidemia) Status: Chronic (6) HTN (hypertension) Status: Acute (7) CAD (coronary artery disease) Status: Chronic (8) Altered mental status Status: Acute (9) Aphasia Status: Acute Discharge Summary Discharge Physical Examination Allergies: Coded Allergies: No Known Drug Allergies (Unverified , 06/19/19) Vitals & I&Os Vital Signs Date Time Temp Pulse Resp B/P (MAP) Pulse Ox O2 Delivery O2 Flow Rate FiO2 01/10/20 12:57 36.2 64 20 107/60 97 Room Air General Appearance: Alert, Cooperative, Other (confusion, Ox 2) Respiratory: Clear to Auscultation Cardiovascular: Regular Rate Neuro: Normal Gait, Normal Speech, Strength at 5/5 X4 Ext Hospital Course Was the Problem List Reviewed?: Yes Hospital Course: Pt had an uneventful hospital course for 12 days after she was admitted for CVA and confusion. HTN was well managed by cardiology input. Pt was maintained on all of her home meds and no lung issues occurred during the hospital course and overall pt was able to participate in therapy. Arrangements were made to go to assisted living [facility] so she was DC in improved condition and will continue PT and OT with assisted living administering medication and monitoring vital signs. Labs (last 24 hrs) Laboratory Tests 12/30/19 05:30: White Blood Count 10.9, Red Blood Count 4.37, Hemoglobin 12.4, Hematocrit 37, Mean Corpuscular Volume 86, Mean Corpuscular Hemoglobin 28, Mean Corpuscular Hemoglobin Concent 33, Red Cell Distribution Width 14.0, Platelet Count 193, Mean Platelet Volume 11.5H, Neutrophils (%) (Auto) 63, Lymphocytes (%) (Auto) 25, Monocytes (%) (Auto) 10, Eosinophils (%) (Auto) 3, Basophils (%) (Auto) 0, Neutrophils # (Auto) 6.8, Lymphocytes # (Auto) 2.7, Monocytes # (Auto) 1.1H, Eosinophils # (Auto) 0.3, Basophils # (Auto) 0.0, Sodium Level 137, Potassium Level 3.9, Chloride Level 106, Carbon Dioxide Level 19L, Anion Gap 12, Blood Urea Nitrogen 18, Creatinine 0.89, Estimat Glomerular Filtration Rate 60, BUN/C reatinine Ratio 20, Glucose Level 85, Calcium Level 8.9, Corrected Calcium 9.3, Total Bilirubin 0.8, Aspartate Amino Transf (AST/SGOT) 23, Alanine Aminotransferase (ALT/SGPT) 13, Alkaline Phosphatase 73, Total Protein 5.9L, Albumin 3.5 01/02/20 05:52: White Blood Count 8.7, Red Blood Count 4.33L, Hemoglobin 12.4, Hematocrit 37, Mean Corpuscular Volume 86, Mean Corpuscular Hemoglobin 29, Mean Corpuscular Hemoglobin Concent 34, Red Cell Distribution Width 13.6, Platelet Count 220, Mean Platelet Volume 11.2H, Neutrophils (%) (Auto) 60, Lymphocytes (%) (Auto) 29, Monocytes (%) (Auto) 9, Eosinophils (%) (Auto) 2, Basophils (%) (Auto) 1, Neutrophils # (Auto) 5.2, Lymphocytes # (Auto) 2.5, Monocytes # (Auto) 0.8, Eosinophils # (Auto) 0.2, Basophils # (Auto) 0.0, Sodium Level 137, Potassium Level 3.7, Chloride Level 105, Carbon Dioxide Level 19L, Anion Gap 13, Blood Urea Nitrogen 15, Creatinine 0.93, Estimat Glomerular Filtration Rate 57, BUN/Creatinine Ratio 16, Glucose Level 95, Calcium Level 9.0, Corrected Calcium 9.2, Total Bilirubin 0.6, Aspartate Amino Transf (AST/SGOT) 24, Alanine Aminotransferase (ALT/SGPT) 15, Alkaline Phosphatase 71, Total Protein 6.1L, Albumin 3.7 01/04/20 05:30: Triglycerides Level 78, Cholesterol Level 106, LDL Cholesterol Direct 52, VLDL Cholesterol 16, HDL Cholesterol 36L 01/09/20 05:25: White Blood Count 8.4, Red Blood Count 4.08L, Hemoglobin 11.6, Hematocrit 36, Mean Corpuscular Volume 87, Mean Corpuscular Hemoglobin 28, Mean Corpuscular Hemoglobin Concent 33, Red Cell Distribution Width 13.8, Platelet Count 254, Mean Platelet Volume 11.4H, Neutrophils (%) (Auto) 52, Lymphocytes (%) (Auto) 33, Monocytes (%) (Auto) 10, Eosinophils (%) (Auto) 4, Basophils (%) (Auto) 1, Neutrophils # (Auto) 4.4, Lymphocytes # (Auto) 2.8, Monocytes # (Auto) 0.8, Eosinophils # (Auto) 0.4H, Basophils # (Auto) 0.1, Sodium Level 140, Potassium Level 4.1, Chloride Level 109H, Carbon Dioxide Level 22, Anion Gap 9, Blood Urea Nitrogen 22H, Creatinine 1.01, Estimat Glomerular Filtration Rate 52, BUN /Creatinine Ratio 22, Glucose Level 95, Calcium Level 9.2, Corrected Calcium 9.8, Total Bilirubin 0.4, Aspartate Amino Transf (AST/SGOT) 19, Alanine Aminotransferase (ALT/SGPT) 12, Alkaline Phosphatase 68, Total Protein 5.6L, Albumin 3.3 Pending Labs Laboratory Tests 12/30/19 05:30: White Blood Count 10.9, Red Blood Count 4.37, Hemoglobin 12.4, Hematocrit 37, Mean Corpuscular Volume 86, Mean Corpuscular Hemoglobin 28, Mean Corpuscular Hemoglobin Concent 33, Red Cell Distribution Width 14.0, Platelet Count 193, Mean Platelet Volume 11.5, Neutrophils (%) (Auto) 63, Lymphocytes (%) (Auto) 25, Monocytes (%) (Auto) 10, Eosinophils (%) (Auto) 3, Basophils (%) (Auto) 0, Neutrophils # (Auto) 6.8, Lymphocytes # (Auto) 2.7, Monocytes # (Auto) 1.1, Eosinophils # (Auto) 0.3, Basophils # (Auto) 0.0, Sodium Level 137, Potassium Level 3.9, Chloride Level 106, Carbon Dioxide Level 19, Anion Gap 12, Blood Urea Nitrogen 18, Creatinine 0.89, Estimat Glomerular Filtration Rate 60, BUN/Creatinine Ratio 20, Glucose Level 85, Calcium Level 8.9, Corrected Calcium 9.3, Total Bilirubin 0.8, Aspartate Amino Transf (AST/SGOT) 23, Alanine Aminotransferase (ALT/SGPT) 13, Alkaline Phosphatase 73, Total Protein 5.9, Albumin 3.5 01/02/20 05:52: White Blood Count 8.7, Red Blood Count 4.33, Hemoglobin 12.4, Hematocrit 37, Mean Corpuscular Volume 86, Mean Corpuscular Hemoglobin 29, Mean Corpuscular Hemoglobin Concent 34, Red Cell Distribution Width 13.6, Platelet Count 220, Mean Platelet Volume 11.2, Neutrophils (%) (Auto) 60, Lymphocytes (%) (Auto) 29, Monocytes (%) (Auto) 9, Eosinophils (%) (Auto) 2, Basophils (%) (Auto) 1, Neutrophils # (Auto) 5.2, Lymphocytes # (Auto) 2.5, Monocytes # (Auto) 0.8, Eosinophils # (Auto) 0.2, Basophils # (Auto) 0.0, Sodium Level 137, Potassium Level 3.7, Chloride Level 105, Carbon Dioxide Level 19, Anion Gap 13, Blood Urea Nitrogen 15, Creatinine 0.93, Estimat Glomerular Filtration Rate 57, BUN/Creatinine Ratio 16, Glucose Level 95, Calcium Level 9.0, Corrected Calcium 9.2, Total Bilirubin 0.6, Aspartate Amino Transf (AST/SGOT) 24, Alanine Aminotransferase (ALT/SGPT) 15, Alkaline Phosphatase 71, Total Protein 6.1, Albumin 3.7 01/04/20 05:30: Triglycerides Level 78, Cholesterol Level 106, LDL Cholesterol Direct 52, VLDL Cholesterol 16, HDL Cholesterol 36 01/09/20 05:25: White Blood Count 8.4, Red Blood Count 4.08, Hemoglobin 11.6, Hematocrit 36, Mean Corpuscular Volume 87, Mean Corpuscular Hemoglobin 28, Mean Corpuscular Hemoglobin Concent 33, Red Cell Distribution Width 13.8, Platelet Count 254, Mean Platelet Volume 11.4, Neutrophils (%) (Auto) 52, Lymphocytes (%) (Auto) 33, Monocytes (%) (Auto) 10, Eosinophils (%) (Auto) 4, Basophils (%) (Auto) 1, Neutrophils # (Auto) 4.4, Lymphocytes # (Auto) 2.8, Monocytes # (Auto) 0.8, Eosinophils # (Auto) 0.4, Basophils # (Auto) 0.1, Sodium Level 140, Potassium Level 4.1, Chloride Level 109, Carbon Dioxide Level 22, Anion Gap 9, Blood Urea Nitrogen 22, Creatinine 1.01, Estimat Glomerular Filtration Rate 52, BUN/Creatinine Ratio 22, Glucose Level 95, Calcium Level 9.2, Corrected Calcium 9.8, Total Bilirubin 0.4, Aspartate Amino Transf (AST/SGOT) 19, Alanine Aminotransferase (ALT/SGPT) 12, Alkaline Phosphatase 68, Total Protein 5.6, Albumin 3.3 Discharge Home Medications: Active Scripts Active Aspirin EC (Aspirin) 325 Mg Tablet.dr 325 Mg PO DAILY Hydralazine HCl 25 Mg Tablet 25 Mg PO TID Lisinopril 20 Mg Tablet 20 Mg PO DAILY Amlodipine Besylate 5 Mg Tablet 5 Mg PO DAILY Lipitor (Atorvastatin Calcium) 40 Mg Tablet 80 Mg PO HS Proair Respiclick (Albuterol Sulfate) 90 Mcg Aer.pow.ba 1-2 Puff IH Q4H PRN Reported [Nasal Rinse] NS QID PRN MIXES PER DR. OSHEA: 1 TBSP BAKING SODA 1/4 TSP SALT 1 CUP WARM WATER SQUIRTS IN EACH NOSTRIL WITH SYRINGE 4X DAILY NEEDED Lumigan (Bimatoprost) 2.5 Ml Drops 1 Drop OD HS Sucralfate 1 Gm Tablet 1 Gm PO ACHS Cetirizine HCl 10 Mg Tablet 10 Mg PO HS Montelukast Sodium 10 Mg Tablet 10 Mg PO HS LAST FILLED 07-28-2019 #90 Preservision Areds 2 Softgel (Vit C/E/Zn/Coppr/Lutein/Zeaxan) 1 Each Capsule 1 Cap PO BID Combivent Respimat Inhal [place] (Albuterol/Ipratropium) 4 Gm Aero 1 Puff IH Q6H PRN Flonase Allergy Relief (Fluticasone Propionate) 9.9 Ml [place].susp 1 [place] NS DAILY PRN Pantoprazole Sodium 40 Mg Tablet.dr 40 Mg PO DAILY LAST FILLED 08-12-2019 #90 Advair 250-50 Diskus (Fluticasone/Salmeterol) 1 Each Blst.w.dev 1 Puff IH BID Atenolol 50 Mg Tablet 50 Mg PO HS Instructions to patient/family Please see electronic discharge instructions given to patient. Diagnosis/Problems Diagnosis/Problems (1) Acute ischemic left WHEEL TUNER stroke Status: Acute (2) COPD without exacerbation Status: Chronic (3) History of stroke Status: Chronic (4) Elevated troponin Status: Acute (5) HLD (hyperlipidemia) Status: Chronic (6) HTN (hypertension) Status: Acute (7) CAD (coronary artery disease) Status: Chronic (8) Altered mental status Status: Acute (9) Aphasia Status: Acute Clinical Quality Measures DVT/VTE Risk/Contraindication: Risk Factor Score Per Nursin RFS Level Per Nursing on Admit: 4+=Very High GUILLE ALVARADO DO Jan 10, 2020 07:13
[2020-01-10] MEDS: lisINopril 20 MG (PRINIVIL) TABLET PO SCH (08:15)
[2020-01-10] MEDS: ASPIRIN E.C. 325 MG (ECOTRIN) TABLET PO SCH (08:15)
[2020-01-10] MEDS: amLODIPine 5 MG (NORVASC) TAB PO SCH (08:15)
[2020-01-10] MEDS: polyethylene glycoL POWDER 17 GM (MIRALAX) PACK PO SCH (08:16)
--- NOTE | 2020-01-10 08:17 | Cardiology Progress Note ---
Subjective Date Seen by Provider: Jan 10, 2020 Time Seen by Provider: 08:16 Subjective/Events-last exam Patient sitting up in chair, denies any chest pain or dyspnea. Being discharged to home today. Review of Systems General: No Chills, No Night Sweats, No Fatigue, No Malaise, No Appetite, No Other HEENT: No Head Aches, No Visual Changes, No Eye Pain, No Ear Pain, No Dysphasia, No Sinus Congestion, No Post Nasal Drip, No Sore Throat, No Other Pulmonary: No Dyspnea, No Cough, No Pleuritic Chest Pain, No Other Cardiovascular: No: Chest Pain, Palpitations, Orthopnea, Paroxysmal Noc. Dyspn ea, Edema, Lt Headedness, Other Gastrointestinal: No: Nausea, Vomiting, Abdominal Pain Genitourinary: No Dysuria, No Frequency Musculoskeletal: No: neck pain, back pain Neurological: No: Numbness, Change in speech, Confusion Objective-Cardiology Exam Last Set of Vital Signs Vital Signs 01/10/20 05:01 Temp 36.2 Pulse 56 Resp 20 B/P (MAP) 145/67 (93) Pulse Ox 97 O2 Delivery Room Air Capillary Refill : Less Than 3 Seconds I&O Intake and Output 01/10/20 00:00 Intake Total 980 ml Balance 980 ml Intake Oral 980 ml # Voids 6 # Bowel Movements 2 General: Alert, Oriented X3, Cooperative HEENT: Atraumatic, PERRLA Neck: Supple, No JVD, No Thyromegaly Lungs: Clear to Auscultation, Normal Air Movement Heart: Regular Rate, Normal S1, Normal S2, No Murmurs Abdomen: Normal Bowel Sounds, Soft, No Tenderness, No Hepatosplenomegaly, No Masses Extremities: No Clubbing, No Cyanosis, No Edema, Normal Pulses, No Tenderness/Swelling Skin: No Rashes, No Breakdown, No Significant Lesion Neuro: Normal Speech, Cranial Nerves 3-12 NL Psych/Mental Status: Mood NL A/P-Cardiology Admission Diagnosis CVA CAD HTN HLP Assessment/Plan 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 Was outside of window to receive TPA. Improving. Receiving physical and occupational therapy. Continue to monitor Mild elevation in troponin, no acute EKG changes. Conservative management, continue on aspirin, probably type II DC. Currently asymptomatic. Continue to monitor CAD- reported hx of angioplasty over 20 years ago per previous notes that were reviewed. Primary plastic design applier is Dr. Raya in [place]. Will need follow up as outpatient. Hypertension, controlled, continue to monitor. Hyperlipidemia, monitor lipids COPD Patient was seen and evaluated with Franca, examination performed, management plan was discussed, agree with the current scribed note, I made few changes to the note using Italic font Patient was seen at bedside, sitting comfortably, no nuchal. Being discharged today. Arrange for follow-up with her primary plastic design applier Dr. Raya Continue on current medication monitor blood pressure as an outpatient Clinical Quality Measures DVT/VTE Risk/Contraindication: Risk Factor Score Per Nursin RFS Level Per Nursing on Admit: 4+=Very High FRANCA PACK Jan 10, 2020 08:17 PASQUALE TO MD Jan 10, 2020 08:48
[2020-01-10] MEDS: SENNOSIDES 8.6 MG (SENOKOT) TAB PO SCH (08:18)
[2020-01-10] MEDS: DOCUSATE SODIUM 100 MG (COLACE) CAP PO SCH (08:18)
--- NOTE | 2020-01-10 09:12 | Therapy Team Discharge Summary ---
Therapy Discharge Summary Discharge Recommendations Date of Discharge Physical Therapy Patient came to rehab post CVA. Upon evaluation patient performed bed mobility with independence, transfers with setup, car transfer setup, ambulated 400' with a rolling walker with setup (including 50' with at least 2 turns of 90 degrees and 10' over an uneven surface), and went up and down 12 steps with setup. Patient has been performing bed mobility and transfer training, balance and endurance training, functional strengthening, stair training, gait training, and education. Patient has made some progress but only met her fci goals for bed mobility and transfers. Now, patient performs bed mobility and transfers with independence, independent with car transfer, ambulates at least 150' with a rolling walker with SBA (including 50' with at least 2 turns of 90 degrees and 10' over an uneven surface), picks up an object from the floor with SBA, and can go up and down 4 steps using 1 handrail with CGA/SBA. Patient is discharging from this facility today and will be discharged from PT at this time. Occupational Therapy Decreased Activ Tolerance, Decreased UE Strength, Impaired Cognition, Impaired I ADL's, Impaired Self-Care Skills PT Alf Goals [employer] Goals PT Alf Goals Time Frame: Jan 14, 2020 Roll Left to Right (QC): 6 Sit to Lying (QC): 6 Lying-Sitting on Side/Bed(QC): 6 Sit to Stand (QC): 6 Chair/Qjg-nh-Fndop Xfer(QC): 6 Car Transfer (QC): 6 Does the Patient Walk: Yes Walk 10 feet (QC): 6 Walk 10ft-Uneven Surface(QC): 6 Walk 50ft with 2 Turns (QC): 6 Walk 150 ft (QC): 6 Does the Pt use WC or Scooter?: No Wheel 50 feet with 2 turns (QC: 9 1 Step (curb) (QC): 6 4 Steps (QC): 6 12 Steps (QC): 6 Picking up an Object (QC): 6 OT Alf Goals [employer] Goals Time Frame: Jan 14, 2020 Eating (QC): 6 Oral Hygiene (QC): 6 Shower/Bathe Self (QC): 6 Upper Body Dressing (QC): 6 Lower Body Dressing (QC): 6 On/Off Footwear (QC): 6 Toileting Hygiene (QC): 6 Toilet/Commode Transfer (QC): 6 1=Demonstrate adherence to instructed precautions during ADL tasks. 2=Patient will verbalize/demonstrate understanding of assistive devices/modifications for ADL. 3=Patient will improve strength/tolerance for activity to enable patient to perform ADL's. Speech Alf Goals [employer] Goals Patient will improve cognitive-communication necessary for safety and daily living tasks with minimal assist. TIFFANIE VERA PT Jan 10, 2020 09:12
--- NOTE | 2020-01-10 11:05 | NUR ---
CM/SS DISCHARGE Patient discharged to [facility] with [facility] via their transport this a.m. Provided COVID19 Assessment regarding hospital to post acute facility transfer as well as all other admission information on her behalf. IMM2 discussed, completed, charted. No intention to appeal, discharge has been planned in partnership with patient and family over the past week. Faxed orders/instructions, prepared continuum of care packet to accompany patient. Communicated with DPOA-HC/Grandcarmita Greene. He will visit patient later today after his work hours. Plan is for continued residency with supportive services without returning home alone. Propulsion Machinery Service Engineer offered assist with [place] paperwork for Jc and continued contact for questions/concerns if they arise. Grandsons are in uncharted hernandez as they assume oversight and legal authority on behalf of patient's well-being.
[2020-01-10 12:57] VITALS: BP 107/60
--- NOTE | 2020-01-10 14:03 | Therapy Team Discharge Summary ---
Therapy Discharge Summary Discharge Recommendations Date of Discharge Jan 10, 2020 at 11:00 Occupational Therapy Pt admits to ARU with CVA dx. Pt admits with SBA-CGA and/or minimal cues through all ADL tasks. Due to cognition and problem solving/ STM, pt continued to receive SBA with minimal cues for continuation with task throughout treatment and LTGs not met. Pt and OT worked towards higher fx IND through ADLs, UE strengthening, fx cognitive/ problem solving tasks and safety concerns. Pt d/c's with all ADLs at SBA level. Pt d/cs to SNF facility with post OT recommended. Decreased Activ Tolerance, Decreased UE Strength, Impaired Cognition, Impaired I ADL's, Impaired Self-Care Skills PT School Based Therapist Goals Retirement Goals PT Retirement Goals Time Frame: Jan 14, 2020 Roll Left to Right (QC): 6 Sit to Lying (QC): 6 Lying-Sitting on Side/Bed(QC): 6 Sit to Stand (QC): 6 Chair/Jef-vj-Oegve Xfer(QC): 6 Car Transfer (QC): 6 Does the Patient Walk: Yes Walk 10 feet (QC): 6 Walk 10ft-Uneven Surface(QC): 6 Walk 50ft with 2 Turns (QC): 6 Walk 150 ft (QC): 6 Does the Pt use WC or Scooter?: No Wheel 50 feet with 2 turns (QC: 9 1 Step (curb) (QC): 6 4 Steps (QC): 6 12 Steps (QC): 6 Picking up an Object (QC): 6 OT School Based Therapist Goals School Based Therapist Goals Time Frame: Jan 14, 2020 Eating (QC): 6 Oral Hygiene (QC): 6 Shower/Bathe Self (QC): 6 Upper Body Dressing (QC): 6 Lower Body Dressing (QC): 6 On/Off Footwear (QC): 6 Toileting Hygiene (QC): 6 Toilet/Commode Transfer (QC): 6 1=Demonstrate adherence to instructed precautions during ADL tasks. 2=Patient will verbalize/demonstrate understanding of assistive devices/modifications for ADL. 3=Patient will improve strength/tolerance for activity to enable patient to perform ADL's. Speech Retirement Goals Retirement Goals Patient will improve cognitive-communication necessary for safety and daily living tasks with minimal assist. LONNIE PERES OTR Jan 10, 2020 14:03
--- NOTE | 2020-01-11 09:22 | Therapy Team Discharge Summary ---
Therapy Discharge Summary Discharge Recommendations Date of Discharge Jan 10, 2020 at 11:00 Occupational Therapy Decreased Activ Tolerance, Decreased UE Strength, Impaired Cognition, Impaired I ADL's, Impaired Self-Care Skills Speech-Language Pathology Patient was admitted to ARU due to debility. Patient exhibited moderate deficits in cognitive function for which she received skilled ST services. Patient made fair progress on ST goals. Patient discharged 09/10/2019. PT Homeowner Association Manager Goals Long-Term Goals PT Homeowner Association Manager Goals Time Frame: Jan 14, 2020 Roll Left to Right (QC): 6 Sit to Lying (QC): 6 Lying-Sitting on Side/Bed(QC): 6 Sit to Stand (QC): 6 Chair/Ggq-wn-Cfsha Xfer(QC): 6 Car Transfer (QC): 6 Does the Patient Walk: Yes Walk 10 feet (QC): 6 Walk 10ft-Uneven Surface(QC): 6 Walk 50ft with 2 Turns (QC): 6 Walk 150 ft (QC): 6 Does the Pt use WC or Scooter?: No Wheel 50 feet with 2 turns (QC: 9 1 Step (curb) (QC): 6 4 Steps (QC): 6 12 Steps (QC): 6 Picking up an Object (QC): 6 OT Long-Term Goals Homeowner Association Manager Goals Time Frame: Jan 14, 2020 Eating (QC): 6 Oral Hygiene (QC): 6 Shower/Bathe Self (QC): 6 Upper Body Dressing (QC): 6 Lower Body Dressing (QC): 6 On/Off Footwear (QC): 6 Toileting Hygiene (QC): 6 Toilet/Commode Transfer (QC): 6 1=Demonstrate adherence to instructed precautions during ADL tasks. 2=Patient will verbalize/demonstrate understanding of assistive devices/modifications for ADL. 3=Patient will improve strength/tolerance for activity to enable patient to perform ADL's. Speech Long-Term Goals Long-Term Goals Patient will improve cognitive-communication necessary for safety and daily living tasks with minimal assist. HERNANDEZ DIALLO Jan 11, 2020 09:22
== END 2020-01-10 11:00 | DRG 56 ==
PROVIDERS: ADMIT Internal Medicine; ATTEND Internal Medicine
DX: I69.320 Aphasia following cerebral infarction (principal); I21.A1 Myocardial infarction type 2; F03.90 Unspecified dementia, unspecified severity, without behavioral disturbance, psychotic disturbance, mood disturbance, and anxiety; I10 Essential (primary) hypertension; E78.5 Hyperlipidemia, unspecified; I25.10 Atherosclerotic heart disease of native coronary artery without angina pectoris; J44.9 Chronic obstructive pulmonary disease, unspecified; M81.0 Age-related osteoporosis without current pathological fracture; Z87.01 Personal history of pneumonia (recurrent); Z98.61 Coronary angioplasty status; Z90.49 Acquired absence of other specified parts of digestive tract; Z90.89 Acquired absence of other organs; Z90.710 Acquired absence of both cervix and uterus
CPT/HCPCS: 36415; 80053; 80061; 85025; 94664; 94760

== ENCOUNTER 2020-04-03 00:12 | Emergency (ER) | payer MEDICARE, OTHER ==
[~2020-04-03] VITALS: Ht 160 cm; Wt 68.0 kg
[~2020-04-03 00:12] MED LIST changes: +AMLO5TAB9 PO; +ASPI-1238 PO; -ASPI-983 PO; +ASPI325T32 PO; +ATOR40TA PO; +HYDR-3923 PO
--- NOTE | 2020-04-03 00:15 | NUR ---
Pt arrives by EMS after falling out of bed onto carpet. Pt arrives with c-collar in place. Pt clothing removed for assessment and pt noted to have bilateral abrasions to both knees and skin tears to both elbows. Pt does not appear to have pain to palpation to any other area. Pt will has weak wet process miller upon command. EMS reports FSBS was 139. This nurse will f/u with phone call to [facility] for further information.
[2020-04-03 00:43] LABS: BILIRUBIN,URINE NEGATIVE (NEGATIVE); CLARITY,URINE CLEAR; COLOR,URINE YELLOW; GLUCOSE, URINE (UA) NEGATIVE (NEGATIVE); KETONES,URINE TRACE (NEGATIVE); LEUKOCYTE ESTERASE ,URINE NEGATIVE (NEGATIVE); NITRITE,URINE NEGATIVE (NEGATIVE); PROTEIN,URINE TRACE (NEGATIVE)
--- NOTE | 2020-04-03 00:44 | NUR ---
Pt to CT with nurse present.
[2020-04-03 00:49] LABS: BASOPHILS % (AUTO) 0 % (0-10); EOSINOPHILS # (AUTO) 0.1 10^3/uL (0.0-0.3); EOSINOPHILS % (AUTO) 1 % (0-10); HEMATOCRIT 37 % (35-52); HEMOGLOBIN 12.2 G/DL (11.5-16.0); LYMPHOCYTES # (AUTO) 2.5 X 10^3 (1.0-4.0); LYMPHOCYTES % (AUTO) 22 % (12-44); MEAN CORPUSCULAR HEMOGLOBIN 29 PG (25-34); MEAN CORPUSCULAR HGB CONC 33 G/DL (32-36); MEAN CORPUSCULAR VOLUME 88 FL (80-99); MEAN PLATELET VOLUME 12.1 FL (7.4-10.4); MONOCYTES # (AUTO) 0.9 X 10^3 (0.0-1.0); MONOCYTES % (AUTO) 8 % (0-12); NEUTROPHILS # (AUTO) 7.8 X 10^3 (1.8-7.8); NEUTROPHILS % (AUTO) 69 % (42-75); PLATELET COUNT 192 10^3/uL (130-400); WHITE BLOOD COUNT 11.2 10^3/uL (4.3-11.0)
[2020-04-03 00:52] LABS: ALBUMIN 3.9 GM/DL (3.2-4.5)
[2020-04-03 00:53] LABS: CHLORIDE 108 MMOL/L (98-107); POTASSIUM 3.4 MMOL/L (3.6-5.0); SODIUM 142 MMOL/L (135-145)
[2020-04-03 00:54] LABS: CALCIUM 8.8 MG/DL (8.5-10.1)
[2020-04-03 00:55] LABS: GLUCOSE 139 MG/DL (70-105); TOTAL PROTEIN 6.3 GM/DL (6.4-8.2)
[2020-04-03 00:56] LABS: CARBON DIOXIDE 22 MMOL/L (21-32)
[2020-04-03 00:57] LABS: BILIRUBIN,TOTAL 0.7 MG/DL (0.1-1.0)
[2020-04-03 00:58] LABS: BACTERIA,URINE NEGATIVE /HPF; CALCIUM OXALATE CRYSTALS,UR RARE /LPF; RBC,URINE RARE /HPF; SQUAMOUS EPITHELIAL CELL,UR 0-2 /HPF; WBC,URINE 0-2 /HPF
[2020-04-03 00:59] LABS: ALKALINE PHOSPHATASE 75 U/L (40-136); GFR ESTIMATED 52
[2020-04-03 01:00] LABS: BUN/CREATININE RATIO 18
[2020-04-03 01:02] LABS: ALANINE AMINOTRANSFERASE 10 U/L (0-55)
--- NOTE | 2020-04-03 01:05 | NUR ---
This nurse called [facility] and staff on duty reports that patients LWKT was Thursday night. Staff states that Thursday morning pt woke up barely speaking, stating she only said "one or two words all day" which is abnormal for this patient. Pt is normally "pleasantly confused" and able to care "mostly for herself". Staff reports that pt fell from bed onto carpet and that there was no signs of a positive LOC. Staff reports that pt's roommate reported after EMS left that the patient did fall and hit her head a few nights ago and did not report it. All of this information was reported to Dr. Riggins.
--- NOTE | 2020-04-03 01:10 | NUR ---
Pt back from CT by cart.
[2020-04-03] MEDS ORDERED: LACTATED RINGERS 1,000 ML IV ONE (01:27)
--- NOTE | 2020-04-03 03:26 | NUR ---
Pt sleeping but arousable; VSS. Will continue to monitor.
--- NOTE | 2020-04-03 03:53 | ED Neurological Problem ---
General Chief Complaint: Trauma-Non Activation Stated Complaint: FALL Nursing Triage Note: Pt reportedly "rolled out of bed". Pt has abrasions to both knees and skin tears to both elbows; no other obvious signs of injuries noted. Pt is altered from her baseline mental status as reported by [facility] staff although this was reported as starting prior to the fall. [facility] staff reported that she was altered as early as yesterday morning. Nursing Sepsis Screen: No Definite Risk Source: patient, EMS, old records Exam Limitations: clinical condition (NIDIA SALOMON MD) History of Present Illness Date Seen by Provider: Apr 03, 2020 Time Seen by Provider: 00:14 Initial Comments This 89-year-old woman presents to the emergency room via EMS from [facility] where she has been noted to "not be herself" all day. She woke in that condition. Then this evening she fell out of bed which prompted the activation of EMS. On arrival patient is not communicating to us in a meaningful way which is a change from baseline. Normally she is pleasantly confused. She also can perform most ADLs including walking and feeding herself. She follows some instructions but not others. Neurologic exam is difficult due to inability to cooperate. She does move all 4 extremities and will speak a few words. Location Injury Occurred: Bilateral knee abrasions and skin tears to bilateral elbows (NIDIA SALOMON MD) Allergies and Home Medications Allergies Coded Allergies: No Known Drug Allergies (Unverified , 06/19/19) Home Medications Albuterol Sulfate 90 Mcg Aer.pow.ba, 1-2 PUFF IH Q4H PRN for WHEEZING Prescribed by: GREY MORAN on 09/01/19 0432 Albuterol/Ipratropium 4 Gm Aero, 1 PUFF IH Q6H PRN for SHORTNESS OF BREATH, (Reported) Amlodipine Besylate 5 Mg Tablet, 5 MG PO DAILY Prescribed by: GUILLE ALVARADO on 01/09/201952 Aspirin 325 Mg Tablet.dr, 325 MG PO DAILY Prescribed by: GUILLE ALVARADO on 01/09/201952 Atenolol 50 Mg Tablet, 50 MG PO HS, (Reported) Atorvastatin Calcium 40 Mg Tablet, 80 MG PO HS Prescribed by: GUILLE ALVARADO on 01/09/201952 Bimatoprost 2.5 Ml Drops, 1 DROP OD HS, (Reported) Cetirizine HCl 10 Mg Tablet, 10 MG PO HS, (Reported) Fluticasone Propionate 9.9 Ml [place].susp, 1 SPRAY NS DAILY PRN for CONGESTION, (Reported) Fluticasone/Salmeterol 1 Each Blst.w.dev, 1 PUFF IH BID, (Reported) Hydralazine HCl 25 Mg Tablet, 25 MG PO TID Prescribed by: GUILLE ALVARADO on 01/09/201952 Lisinopril 20 Mg Tablet, 20 MG PO DAILY Prescribed by: GUILLE ALVARADO on 01/09/201952 Montelukast Sodium 10 Mg Tablet, 10 MG PO HS, (Reported) LAST FILLED 07-28-2019 #90 Pantoprazole Sodium 40 Mg Tablet.dr, 40 MG PO DAILY, (Reported) LAST FILLED 08-12-2019 #90 Sucralfate 1 Gm Tablet, 1 GM PO ACHS, (Reported) Vit C/E/Zn/Coppr/Lutein/Zeaxan 1 Each Capsule, 1 CAP PO BID, (Reported) [Nasal Rinse] , NS QID PRN for DRY NOSE, (Reported) MIXES PER DR. OSHEA: 1 TBSP BAKING SODA 1/4 TSP SALT 1 CUP WARM WATER SQUIRTS IN EACH NOSTRIL WITH SYRINGE 4X DAILY NEEDED Patient Home Medication List Home Medication List Reviewed: Yes (NIDIA SALOMON MD) Review of Systems Review of Systems Constitutional: no symptoms reported Eyes: No Symptoms Reported Ears, Nose, Mouth, Throat: no symptoms reported Respiratory: no symptoms reported Cardiovascular: no symptoms reported Gastrointestinal: no symptoms reported Genitourinary: no symptoms reported : No Musculoskeletal: no symptoms reported Skin: no symptoms reported Psychiatric/Neurological: See HPI Endocrine: No Symptoms Reported Hematologic/Lymphatic: No Symptoms Reported (NIDIA SALOMON MD) Past Srawbpp-Tlhjrh-Diapbj Hx Past Med/Social Hx: Reviewed Nursing Past Med/Soc Hx (NIDIA SALOMON MD) Patient Social History Alcohol Use: Denies Use Recreational Drug Use: No Smoking Status: Unknown if Ever Smoked 2nd Hand Smoke Exposure: No Recent Foreign Travel: No Contact w/Someone Who Travel: No Recent Infectious Disease Expo: No Recent Hopitalizations: No (NIDIA SALOMON MD) Immunizations Up To Date Tetanus Booster (TDap): More than 5yrs PED Vaccines UTD: Yes Date of Pneumonia Vaccine: Apr 19, 2016 Date of Influenza Vaccine: May 10, 2019 (NIDIA SALOMON MD) Seasonal Allergies Seasonal Allergies: Yes (NIDIA SALOMON MD) Past Medical History Surgeries: Yes Appendectomy, Cardiac, Gallbladder, Hysterectomy, Tonsillectomy Respiratory: Yes (BRONCHITIS) Currently Using CPAP: No Currently Using BIPAP: No Cardiac: Yes Coronary Artery Disease, Heart Attack, High Cholesterol, Hypertension Neurological: Yes (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 PT REFUSED EGD.) Gastrointestinal Bleed Musculoskeletal: No Osteoporosis, Chronic Back Pain Endocrine: No HEENT: No Cancer: No Psychosocial: No Integumentary: No Blood Disorders: No (NIDIA SALOMON MD) Family Medical History Congenital heart disease 19 FATHER G8 BROTHER FH: breast cancer G8 SISTER No Pertinent Family Hx (NIDIA SALOMON MD) Physical Exam Vital Signs Vital Signs - First Documented 04/03/20 00:15 Temp 36.3 Pulse 64 Resp 20 B/P (MAP) 173/91 (118) Pulse Ox 97 O2 Delivery Room Air (BRIAN BARAHONA) Vital Signs Capillary Refill : Less Than 3 Seconds (NIDIA SALOMON MD) Height, Weight, BMI Height: 5'5.00" Weight: 119lbs. 9.0oz. 54.861728bu; 26.00 BMI Method:Stated General Appearance: WD/WN, no apparent distress HEENT: PERRL/EOMI, normal ENT inspection Neck: normal inspection Respiratory: lungs clear, normal breath sounds, no respiratory distress Cardiovascular: regular rate, rhythm, no edema, no murmur Gastrointestinal: normal bowel sounds, non tender, soft Extremities: normal inspection, no pedal edema Neurologic/Psychiatric: no motor/sensory deficits, alert, other (minimal verbal communication and mostly nonsensical. Follows some instructions. Appears to move all 4 extremities.) Skin: normal color, warm/dry (NIDIA SALOMON MD) Progress/Results/Core Measures Results/Orders Lab Results Laboratory Tests Test 04/03/20 00:22 04/03/20 00:29 Range/Units White Blood Count 11.2 H 4.3-11.0 10^3/uL Red Blood Count 4.19 L 4.35-5.85 10^6/uL Hemoglobin 12.2 11.5-16.0 G/DL Hematocrit 37 35-52 % Mean Corpuscular Volume 88 80-99 FL Mean Corpuscular Hemoglobin 29 25-34 PG Mean Corpuscular Hemoglobin Concent 33 32-36 G/DL Red Cell Distribution Width 14.5 10.0-14.5 % Platelet Count 192 130-400 10^3/uL Mean Platelet Volume 12.1 H 7.4-10.4 FL Neutrophils (%) (Auto) 69 42-75 % Lymphocytes (%) (Auto) 22 12-44 % Monocytes (%) (Auto) 8 0-12 % Eosinophils (%) (Auto) 1 0-10 % Basophils (%) (Auto) 0 0-10 % Neutrophils # (Auto) 7.8 1.8-7.8 X 10^3 Lymphocytes # (Auto) 2.5 1.0-4.0 X 10^3 Monocytes # (Auto) 0.9 0.0-1.0 X 10^3 Eosinophils # (Auto) 0.1 0.0-0.3 10^3/uL Basophils # (Auto) 0.0 0.0-0.1 10^3/uL Sodium Level 142 135-145 MMOL/L Potassium Level 3.4 L 3.6-5.0 MMOL/L Chloride Level 108 H 98-107 MMOL/L Carbon Dioxide Level 22 21-32 MMOL/L Anion Gap 12 5-14 MMOL/L Blood Urea Nitrogen 18 7-18 MG/DL Creatinine 1.00 0.60-1.30 MG/DL Estimat Glomerular Filtration Rate 52 BUN/Creatinine Ratio 18 Glucose Level 139 H 70-105 MG/DL Calcium Level 8.8 8.5-10.1 MG/DL Corrected Calcium 8.9 8.5-10.1 MG/DL Total Bilirubin 0.7 0.1-1.0 MG/DL Aspartate Amino Transf (AST/SGOT) 14 5-34 U/L Alanine Aminotransferase (ALT/SGPT) 10 0-55 U/L Alkaline Phosphatase 75 40-136 U/L Troponin I < 0.028 <0.028 NG/ML Total Protein 6.3 L 6.4-8.2 GM/DL Albumin 3.9 3.2-4.5 GM/DL Urine Color YELLOW Urine Clarity CLEAR Urine pH 6.0 5-9 Urine Specific [place] 1.025 H 1.016-1.022 Urine Protein TRACE H NEGATIVE Urine Glucose (UA) NEGATIVE NEGATIVE Urine Ketones TRACE H NEGATIVE Urine Nitrite NEGATIVE NEGATIVE Urine Bilirubin NEGATIVE NEGATIVE Urine Urobilinogen 0.2 < = 1.0 MG/DL Urine Leukocyte Esterase NEGATIVE NEGATIVE Urine RBC (Auto) NEGATIVE NEGATIVE Urine RBC RARE /HPF Urine WBC 0-2 /HPF Urine Squamous Epithelial Cells 0-2 /HPF Urine Crystals PRESENT H /LPF Urine Calcium Oxalate Crystals RARE H /LPF Urine Bacteria NEGATIVE /HPF Urine Casts NONE /LPF Urine Mucus NEGATIVE /LPF Urine Culture Indicated NO (BRIAN BARAHONA) Medications Given in ED Current Medications Medications Dose Ordered Sig/Rigo Route Start Time Stop Time Status Last Admin Dose Admin Lactated Ringer's 1,000 ml @ 0 mls/hr Q0M ONCE IV 04/03/20 01:27 04/03/20 01:28 DC 04/03/20 01:54 1,000 MLS/HR (BRIAN BARAHONA) Vital Signs/I&O 04/03/20 04/03/20 00:15 00:25 Temp 36.3 Pulse 64 64 Resp 20 20 B/P (MAP) 173/91 (118) 173/91 (118) Pulse Ox 97 97 O2 Delivery Room Air Room Air (BRIAN BARAHONA) Blood Pressure Mean: 118 Progress Progress Note #1: Time: 03:[address] of the head demonstrated in old or subacute hemorrhage versus mass with cerebral edema. MRI was recommended for further assessment. MRI is not available at this facility until later in the morning. I discussed the situation with patient's grandson Sean who is a DPLA. We discussed options including comfort measures and hospice versus further investigation and a ggressive care. He was uncertain of the best route to take and requested that I contact a neurologist or neurosurgeon for phone consultation. I contacted [facility], [facility], and [facility] in [place], all who are currently on diversion. I also discussed the case with Dr. Garcia, neuro photographic equipment assembler at [facility]. He is requesting MRI before making a determination of whether anything can be accomplished for this patient in transfer. He does not want to transfer until MRI is complete has bed space is very low and lucía at [facility] right now. Progress Note #2: Time: 06:16 Progress Note Patient's stay has been unremarkable thus far. MRI has been ordered. Disposition is pending MRI results. Care of this patient is being transitioned to Dr. Barahona. (NIDIA SALOMON MD) Progress Note #1: Progress Note Assumed care of the patient. Next step is to obtain MRI of brain to further characterize the lesion. We will then discuss the case with the appropriate parties including grandson for disposition. Progress Note #2: Time: 09:33 Progress Note Report from radiology on the MRI is been reviewed. Based on clinical exam and history given by staff patient appears to have had a stroke in the last day some time while she was sleeping and has been altered ever since. This hemorrhagic stroke does not appear to have anything to do from the head trauma she may have suffered from her fall from standing several hours after symptoms began. Left voicemail with the son who Dr. Riggins was speaking to earlier, SEAN. We will discuss goals of care. Earlier all the area hospitals in [facility] and [facility] were on diversion and unable to accept the patient. It is dubious that there'll be anything to be done from a neurosurgical standpoint to improve this patient's function. Progress Note #3: Time: 09:51 Progress Note Patient is alert, confused and uttered a few words. She says she just doesn't know how to do it. She declines being in any kind of discomfort. We did discuss the case with her grandson and he agrees with comfort care measures. We also discussed the case with [facility] palliative care team and they are going to come visit with the patient and talked to family and hopefully help facilitate a transition back to the detention with hospice services. Progress Note #4: Time: 11:01 Progress Note Palliative medicine has visited with the patient and family and set the patient up to go back to [facility] [address] [facility]. They're getting a specialized bed moved in and will call when it is available and then we can transport her. (BRIAN BARAHONA) Initial ECG Impression Date: Apr 03, 2020 Initial ECG Impression Time: 00:29 Initial ECG Rate: 61 Initial ECG Rhythm: Normal Sinus Comment Sinus rhythm with PACs. No ST elevation or depression. LVH with secondary repolarization abnormality. (NIDIA SALOMON MD) Diagnostic Imaging Diagonstic Imaging: CT Plain Films/CT/US/NM/MRI: c-spine, head Comments CT head and C-spine viewed by me and [facility] report reviewed. C-spine showed no acute injuries. Interpretation of CT head reads as follows: 1. No subdural or epidural hemorrhage. 2. Heterogeneous area in the left frontal lobe measuring roughly 2.4 x 1 cm. Could be from subacute-chronic/resolving parenchymal hemorrhage or mass lesion. Areas of edema involving the left frontal and frontoparietal lobe. MR can furth er assess. (NIDIA SALOMON MD) Diagonstic Imaging: MRI Plain Films/CT/US/NM/MRI: head Comments [facility], [place] NAME: MARV [facility]UEVAS [facility] REC#: [id number] PT STATUS: REG ER : 1930 PHYSICIAN: NIDIA SALOMON MD ADMIT DATE: 04/03/20/ER Signed Date of Exam:04/03/20 MRI BRAIN W/O CONTRAST PROCEDURE: MR imaging of the brain without contrast. TECHNIQUE: Multiplanar, multisequence MR imaging of the brain was performed without contrast. INDICATION: Abnormal head CT. COMPARISON: CT head on 04/03/2020. MRI brain on 12/28/2019. FINDINGS: Patchy areas of acute/subacute ischemia are visualized in the left MCA distribution, increased since the prior brain MRI. Associated petechial hemorrhage is visualized in the anterior-inferior left frontal lobe, consistent with findings seen on the head CT performed earlier this same day. There is surrounding edema without evidence of midline shift or herniation. Additional scattered chronic microvascular disease is seen in the periventricular and subcortical white matter. The ventricles and cortical sulci are mildly prominent. The basilar cisterns are patent. The sellar and suprasellar regions have a normal appearance. The brainstem and posterior fossa are unremarkable. Mild mucosal thickening is seen in the right maxillary sinus. The mastoid air cells are clear. Bilateral lens implants are noted. The scalp and calvarium have a normal appearance. IMPRESSION: 1. Interval increase in patchy areas of acute/subacute ischemia in the left MCA distribution. One of these areas in the anterior-inferior left frontal lobe demonstrates petechial hemorrhage, consistent with the findings seen on the head CT performed earlier this same date. No evidence of midline shift or herniation. 2. Mild parenchymal volume loss with chronic microvascular disease. Dictated by: Dictated on workstation # [id number] Dict: 04/03/2047 Trans: 04/03/20903 [id number] Interpreted by: ORIANA SORIA DO Electronically signed by: ORIANA SORIA DO 04/03/20903 Reviewed: Reviewed by Me Diagonstic Imaging: Xray Comments [facility] [place] NAME: MARV CUEVAS [facility] REC#: [id number] PT STATUS: REG ER : 1930 PHYSICIAN: NIDIA SALOMON MD ADMIT DATE: 04/03/20/ER Draft Date of Exam:04/03/20 CHEST 1 VIEW, AP/PA ONLY CLINICAL INDICATION: Patient is status post fall. EXAM: Portable chest x-ray upright view. COMPARISONS: Chest x-ray dated 12/28/2019. FINDINGS: Lungs/pleura: Stable slightly inflated lungs. Lungs are clear. There is no pneumothorax. There is no pleural effusion. Mediastinum: Unremarkable. Pulmonary vasculature: Unremarkable. Heart: Stable mild cardiomegaly. Bones/extrathoracic soft tissue: There are degenerative spurs involving the thoracic spine. IMPRESSION: 1: Stable chest x-ray exam with no interval radiographic evidence of acute cardiopulmonary process. 2: Stable mild cardiomegaly with no significant pulmonary vascular congestion. Dictated on workstation # [id number] Dict: 04/03/2034 Trans: 04/03/20 0638 [id number] Interpreted by: GENI WILDER MD Electronically signed by: Reviewed: Reviewed by Me (BRIAN BARAHONA) Departure Impression Primary Impression: Altered mental status Qualified Codes: R41.82 - Altered mental status, unspecified Additional Impressions: CVA (cerebrovascular accident due to intracerebral hemorrhage) Qualified Codes: I61.9 - Nontraumatic intracerebral hemorrhage, unspecified Encounter for palliative care Disposition: HOME, SELF-CARE Condition: Stable Departure-Patient Inst. Decision time for Depature: 09:53 (BRIAN BARAHONA) Referrals: JAY JAY THOMPSON MD (PCP/Family) Primary Care Physician Patient Instructions: Stroke (DC) Add. Discharge Instructions: All discharge instructions reviewed with patient and/or family. Voiced understanding. NIDIA SALOMON MD Apr 03, 2020 03:53 BRIAN BARAHONA Apr 03, 2020 07:02
--- NOTE | 2020-04-03 06:37 | Diagnostic Imaging Report ---
CLINICAL INDICATION: Patient rolled out of bed earlier at local [facility] facility. Patient has no bruising or swelling noted. EXAM: Axial Head CT without IV contrast with sagittal and coronal reformations. Axial CT scan of the cervical spine with sagittal and coronal reformations. Auto Exposure Controls were utilized during the CT exam to meet ALARA standards for radiation dose reduction. COMPARISON: CT angiogram of head/neck dated 12/27/2019. MRI of the brain performed without and with contrast dated 12/28/2019. FINDINGS: Head CT: There is a grossly 2.4 cm x 1.0 cm (AP x Trans ) area of subtle increased density with small amount of adjacent low density located in the basilar left frontal lobe region. There also is progression of low density involving the cortical and subcortical region of the high lateral aspect of left frontal lobe related to acute infarct seen on prior MRI. There is progression of low density involving the medial left temporal lobe and left occipital lobe region related to infarct seen on prior MRI. There is no brain herniation or midline shift. There are chronic patchy areas of low-attenuation white matter changes involving both cerebral hemispheres likely representing chronic small vessel ischemic disease. Stable small infarct involving the medial right thalamic region. There is no hydrocephalus. Basal cisterns are unremarkable. The extra cranial soft tissues, skull, and orbits are unremarkable. There is mild mucosal thickening involving both maxillary sinuses, frontal sinus, ethmoid sinus regions. Mastoid air cells are clear. Cervical spine: There is no interval acute cervical spine fracture. There is stable grade 1 anterolisthesis C3 on C4, C4 on C5, and C7 on T1. There is stable grade 1 retrolisthesis of C6 on C7. There are stable multilevel cervical spine degenerative disease or vertebral body spurs. There is stable severe loss of disc space height at the C5-C6 and C6-C7 levels and moderate to severe loss of disc space height at the C4-C5 level. Stable multilevel cervical spine central canal and neural foramen narrowing. IMPRESSION: 1: There is interval development of a small area of slight increased density with adjacent low density changes in the basilar left frontal lobe region. This may represent an area of infarct with hemorrhagic transformation versus intraparenchymal hemorrhage. An intraparenchymal mass should also be excluded. MRI of the brain with and without contrast would better evaluate. 2: Interval evolution of now chronic infarct changes involving the left frontal lobe, medial left temporal lobe, and left occipital lobe regions. 3: Stable cervical spine degenerative disease with no interval acute cervical spine fracture. I agree with [facility] report. Dictated by: Dictated on workstation # [id number]
--- NOTE | 2020-04-03 06:38 | Diagnostic Imaging Report ---
CLINICAL INDICATION: Patient is status post fall. EXAM: Portable chest x-ray upright view. COMPARISONS: Chest x-ray dated 12/28/2019. FINDINGS: Lungs/pleura: Stable slightly inflated lungs. Lungs are clear. There is no pneumothorax. There is no pleural effusion. Mediastinum: Unremarkable. Pulmonary vasculature: Unremarkable. Heart: Stable mild cardiomegaly. Bones/extrathoracic soft tissue: There are degenerative spurs involving the thoracic spine. IMPRESSION: 1: Stable chest x-ray exam with no interval radiographic evidence of acute cardiopulmonary process. 2: Stable mild cardiomegaly with no significant pulmonary vascular congestion. Dictated by: Dictated on workstation # [id number]
--- NOTE | 2020-04-03 07:00 | NUR ---
LYING IN BED EYES CLOSED MONITOR SR.
--- NOTE | 2020-04-03 07:06 | NUR ---
Report to DA Her.
--- NOTE | 2020-04-03 08:27 | NUR ---
RETURN FROM MRI.
--- NOTE | 2020-04-03 08:55 | Diagnostic Imaging Report ---
PROCEDURE: MR imaging of the brain without contrast. TECHNIQUE: Multiplanar, multisequence MR imaging of the brain was performed without contrast. INDICATION: Abnormal head CT. COMPARISON: CT head on 04/03/2020. MRI brain on 12/28/2019. FINDINGS: Patchy areas of acute/subacute ischemia are visualized in the left MCA distribution, increased since the prior brain MRI. Associated petechial hemorrhage is visualized in the anterior-inferior left frontal lobe, consistent with findings seen on the head CT performed earlier this same day. There is surrounding edema without evidence of midline shift or herniation. Additional scattered chronic microvascular disease is seen in the periventricular and subcortical white matter. The ventricles and cortical sulci are mildly prominent. The basilar cisterns are patent. The sellar and suprasellar regions have a normal appearance. The brainstem and posterior fossa are unremarkable. Mild mucosal thickening is seen in the right maxillary sinus. The mastoid air cells are clear. Bilateral lens implants are noted. The scalp and calvarium have a normal appearance. IMPRESSION: 1. Interval increase in patchy areas of acute/subacute ischemia in the left MCA distribution. One of these areas in the anterior-inferior left frontal lobe demonstrates petechial hemorrhage, consistent with the findings seen on the head CT performed earlier this same date. No evidence of midline shift or herniation. 2. Mild parenchymal volume loss with chronic microvascular disease. Dictated by: Dictated on workstation # [id number]
--- NOTE | 2020-04-03 09:40 | NUR ---
TALKING WITH FAMILY
--- NOTE | 2020-04-03 09:59 | NUR ---
Alessandro MORAN RN HERE TO TALK WITH FAMILY ABOUT HOSPICE.
--- NOTE | 2020-04-03 10:36 | NUR ---
PALLIATIVE CARER RN called to the ED to assist in disposition of the patient, who has had a significant stroke,bsck to [facility]. Spoke with patient's grandson, Raman, regarding choice hospice. They have chosen [facility] due to having [place] in the facility already. I have sent clinical information to [facility] and have spoken to Sharmin. Patient will need a hospital bed delivered [facility] due to needing to discharge her from the ED. [facility] will reach out to the ED when all is in place for her to return.
--- NOTE | 2020-04-03 10:49 | NUR ---
WAITING ON [facility] TO GET THINGS SET UP AT [place] WILL CALL WHEN SHE IS THEY ARE READY FOR HER.
--- NOTE | 2020-04-03 10:59 | NUR ---
TALKED WITH DR ALMONTE WILL LEAVE [facility] IN FOR TRANSFER BACK
--- NOTE | 2020-04-03 12:02 | NUR ---
CON'T TO WAIT FOR HOSPICE TO CALL SO CAN TRANSFER PATIENT BACK TO [facility].
--- NOTE | 2020-04-03 12:35 | NUR ---
OFFERD WATER PATIENT SAID NO AND SHOOK HER HEAD. Addendum: 04/03/20 at 1249 by PMCCLURE PATIENT PULLED SALMON OUT APX 1500CC IN SALMON BAG. Addendum: 04/03/20 at 1253 by PMCCLURE IV DC'D
--- NOTE | 2020-04-03 13:00 | NUR ---
CALLED AND TALKED TO Alessandro MORAN RN [facility] HAVE NOT HEARD BACK [facility]
--- NOTE | 2020-04-03 13:14 | NUR ---
WATCHING TV. MONITOR REMOVED FROM PATIENT.
--- NOTE | 2020-04-03 13:35 | NUR ---
GISELLE RN WITH [facility] CALLED BACK AND REPORT PATIENT OK TO COME BACK TO [facility] .
--- NOTE | 2020-04-03 13:36 | NUR ---
SHIF CAPTAIN NOTIFIED OF TRANSFER DISPATCH CALLED FOR TRANSFER
--- NOTE | 2020-04-03 13:48 | NUR ---
CALLED AND GAVE REPORT TO RUBIO AT [facility] INFORMED THAT EMS BRING HER BACK.
[2020-04-03 14:53] VITALS: BP 142/83
== END 2020-04-03 14:05 | disposition home or self-care (01) ==
LOC: EDUNIT# 00:12 → ER 00:14
DX: R41.82 Altered mental status, unspecified (principal); S51.012A Laceration without foreign body of left elbow, initial encounter; S51.011A Laceration without foreign body of right elbow, initial encounter; S80.212A Abrasion, left knee, initial encounter; S80.211A Abrasion, right knee, initial encounter; I63.9 Cerebral infarction, unspecified; E78.00 Pure hypercholesterolemia, unspecified; I10 Essential (primary) hypertension; I25.10 Atherosclerotic heart disease of native coronary artery without angina pectoris; I25.2 Old myocardial infarction; M81.0 Age-related osteoporosis without current pathological fracture; Z51.5 Encounter for palliative care; Z82.49 Family history of ischemic heart disease and other diseases of the circulatory system; Z80.3 Family history of malignant neoplasm of breast; Z79.82 Long term (current) use of aspirin; W06.XXXA Fall from bed, initial encounter
CPT/HCPCS: 36415; 51702; 70450; 70551; 71045; 72125; 80053; 81000; 84484; 85025; 93005; 93041